=== PATIENT | female | born 1975 | race American Indian/Alaskan Native ===

== ENCOUNTER → 2018-07-10 03:32 | Outpatient (CLI) | payer OTHER, SELFPAY ==
[2018-07-10 14:44] LABS: Lithium 0.28 mmol/L (0.60-1.20)
[2018-07-10 15:17] LABS: Anion Gap 9.6 mmol/L (3-11); BUN 7 mg/dL (7-18); CO2 25.4 mmol/L (21.0-32.0); CREATININE 0.82 mg/dL (0.55-1.02); Calcium 9.4 mg/dL (8.5-10.1); Chloride 102 mmol/L (98-107); Glucose 95 mg/dL (70-100); Potassium 4.2 mmol/L (3.5-5.1); Sodium 137 mmol/L (136-145); TSH (W/Ref FT4) 0.44 uIU/mL (0.358-3.74)
[2018-07-10 21:51] LABS: T3,Free 3.2 pg/ml (2.8-5.3)
== END ==
PROVIDERS: PCP Nurse Practitioner; Visit Provider Nurse Practitioner
DX: F31.5 Bipolar disorder, current episode depressed, severe, with psychotic features (principal); Z51.81 Encounter for therapeutic drug level monitoring; Z79.899 Other long term (current) drug therapy
CPT/HCPCS: 36415; 80048; 80178; 82565; 84156; 84443; 84481

== ENCOUNTER 2018-07-17 02:39 | Outpatient (CLI) | payer OTHER, SELFPAY ==
[2018-07-17 13:27] LABS: Lithium 0.46 mmol/L (0.60-1.20)
== END 2018-07-17 02:59 ==
PROVIDERS: PCP Nurse Practitioner; Visit Provider Nurse Practitioner
DX: F31.5 Bipolar disorder, current episode depressed, severe, with psychotic features (principal); Z51.81 Encounter for therapeutic drug level monitoring
CPT/HCPCS: 36415; 80178

== ENCOUNTER 2018-07-23 01:16 | Outpatient (CLI) | payer OTHER, SELFPAY ==
[2018-07-23 14:05] LABS: Anion Gap 5.7 mmol/L (3-11); BUN 17 mg/dL (7-18); CO2 29.3 mmol/L (21.0-32.0); CREATININE 0.86 mg/dL (0.55-1.02); Calcium 9.4 mg/dL (8.5-10.1); Chloride 103 mmol/L (98-107); Glucose 100 mg/dL (70-100); Potassium 4.4 mmol/L (3.5-5.1); Sodium 138 mmol/L (136-145)
[2018-07-23 14:18] LABS: Lithium 0.97 mmol/L (0.60-1.20)
== END 2018-07-23 01:36 ==
PROVIDERS: PCP Nurse Practitioner; Visit Provider Nurse Practitioner
DX: F31.5 Bipolar disorder, current episode depressed, severe, with psychotic features (principal); Z51.81 Encounter for therapeutic drug level monitoring; Z79.899 Other long term (current) drug therapy
CPT/HCPCS: 36415; 80048; 80178

== ENCOUNTER 2018-08-13 14:03 | Outpatient (CLI) | payer OTHER, SELFPAY ==
[2018-08-13 14:33] LABS: HCT 45.4 % (36.0-46.0); Mean Corpuscular Hemoglobin 32.2 pg (27.0-33.0); Mean Corpuscular Volume 97.4 fL (80-95); Mean Platelet Volume 8.6 fL (8.0-11.0); Platelet Count 428 x1000/uL (130-400); RBC 4.66 m/cumm (4.00-5.20); RBC Distribution Width 14.9 % (11.7-14.6); White Blood Cell Count 10.61 k/cumm (4.4-10.8)
[2018-08-13 15:20] LABS: Lithium 0.78 mmol/L (0.60-1.20)
[2018-08-13 15:24] LABS: Iron 65 ug/dL (50-175); Total Iron Binding Capacity 309 ug/dL (250-450); Transferrin Sat 21 % (15-50)
[2018-08-13 15:58] LABS: Ferritin 41 ng/mL (8-388); Vitamin B12 543 pg/mL (193-986)
== END 2018-08-13 14:23 ==
PROVIDERS: PCP Nurse Practitioner; Visit Provider Nurse Practitioner
DX: F32.9 Major depressive disorder, single episode, unspecified (principal); R53.83 Other fatigue; F31.4 Bipolar disorder, current episode depressed, severe, without psychotic features; Z51.81 Encounter for therapeutic drug level monitoring
CPT/HCPCS: 36415; 85027; 80178; 82607; 82728; 83540; 83550

== ENCOUNTER 2018-09-17 10:10 | Outpatient (CLI) | payer OTHER, SELFPAY ==
[2018-09-17 17:15] LABS: Lithium 0.61 mmol/L (0.60-1.20)
[2018-09-17 19:16] LABS: Vitamin D 25 Total 32.7 ng/ml (30-100)
== END 2018-09-17 10:30 ==
PROVIDERS: PCP Nurse Practitioner; Visit Provider Nurse Practitioner Psychiatric/Mental Health
DX: F31.81 Bipolar II disorder (principal); Z51.81 Encounter for therapeutic drug level monitoring; Z79.899 Other long term (current) drug therapy; E55.9 Vitamin D deficiency, unspecified
CPT/HCPCS: 36415; 82306; 80178

== ENCOUNTER 2018-10-19 11:36 | Outpatient (CLI) | payer OTHER, SELFPAY ==
[2018-10-19 13:41] LABS: Abs Immature Grans 0.02 k/cumm (0.0-0.09); Absolute Basophil Count 0.02 k/cumm (0.0-0.2); Absolute Eosinophil Count 0.26 k/cumm (0.0-0.7); Absolute Lymphocyte Count 2.19 k/cumm (1.2-3.4); Absolute Monocyte Count 0.94 k/cumm (0.11-0.7); Basophils % 0.2; Eosinophils % 2.2; HCT 46.4 % (36.0-46.0); HGB 15.7 g/dL (12.0-15.5); Immature Grans % 0.2; Lymphocytes % 18.8; Mean Corp. HGB Concentration 33.8 g/dL (32.0-36.0); Mean Corpuscular Hemoglobin 32.6 pg (27.0-33.0); Mean Corpuscular Volume 96.5 fL (80-95); Mean Platelet Volume 8.4 fL (8.0-11.0); Monocytes % 8.1; Neutrophils % 70.5; Platelet Count 418 x1000/uL (130-400); RBC 4.81 m/cumm (4.00-5.20); RBC Distribution Width 13.9 % (11.7-14.6); White Blood Cell Count 11.66 k/cumm (4.4-10.8)
[2018-10-19 13:44] LABS: Absolute Neutrophil Count 8.22 k/cumm (1.2-6.7)
[2018-10-19 14:30] LABS: Iron 150 ug/dL (50-175); Total Iron Binding Capacity 332 ug/dL (250-450); Transferrin Sat 45 % (15-50)
[2018-10-19 15:01] LABS: ALT 20 U/L (12-78); AST 14 U/L (15-37); Alkaline Phosphatase 103 U/L (46-116); BUN 8 mg/dL (7-18); Bilirubin, Total 0.3 mg/dL (0.2-1.0); CREATININE 0.82 mg/dL (0.55-1.02); Calcium 9.7 mg/dL (8.5-10.1); Chloride 102 mmol/L (98-107); Ferritin 21 ng/mL (8-388); Folate 14.8 ng/mL (8.6-20.0); Glucose 109 mg/dL (70-100); Potassium 4.4 mmol/L (3.5-5.1); Sodium 136 mmol/L (136-145); T4 7.3 ug/dL (4.5-12.5); TSH (W/Ref FT4) 0.16 uIU/mL (0.358-3.74); Total Protein 7.4 g/dL (6.4-8.2); Vitamin B12 535 pg/mL (193-986)
[2018-10-19 15:22] LABS: FREE T4 0.81 ng/dL (0.76-1.46)
[2018-10-22 08:27] LABS: Vitamin D 25 Total 33.7 ng/ml (30-100)
== END 2018-10-19 11:56 ==
PROVIDERS: PCP Nurse Practitioner; Visit Provider Nurse Practitioner Psychiatric/Mental Health
DX: F43.21 Adjustment disorder with depressed mood (principal); Z51.81 Encounter for therapeutic drug level monitoring; Z79.899 Other long term (current) drug therapy
CPT/HCPCS: 36415; 80053; 82306; 80178; 82607; 82728; 82746; 83540; 83550; 84436; 84439; 84443; 85025

== ENCOUNTER 2018-11-12 13:14 | Outpatient (CLI) | payer OTHER, SELFPAY ==
[2018-11-12 14:56] LABS: FREE T4 0.67 ng/dL (0.76-1.46); TSH (W/Ref FT4) 0.23 uIU/mL (0.358-3.74)
[2018-11-12 15:07] LABS: T4 5.1 ug/dL (4.5-12.5)
[2018-11-12 20:30] LABS: T3, Total 321 ng/dl (97-169)
== END 2018-11-12 13:34 ==
PROVIDERS: PCP Nurse Practitioner; Visit Provider Nurse Practitioner Psychiatric/Mental Health
DX: F31.81 Bipolar II disorder (principal); Z79.899 Other long term (current) drug therapy
CPT/HCPCS: 36415; 84436; 84439; 84443; 84480

== ENCOUNTER 2019-01-28 18:53 | Emergency (ER) | payer OTHER, SELFPAY ==
[2019-01-28 19:05] VITALS: BP 122/75; PULSE 99; RESP 16; TEMP 37.3; O2SAT 94
--- NOTE | 2019-01-28 19:53 | ED.GENADUL_ITS ---
Discharge Plan Disposition Patient Disposition: HOME Condition: Improving Discharge Details Chief Complaint: Nk/Back Pain Clinical Impression: Spasm of thoracic back muscle Reason For Visit: back out Primary Care Provider: Malgorzata Orellana ED Provider: Mo Becker Home Meds and New Rx's Prescriptions: New cyclobenzaprine 10 mg tablet 10 mg PO Q8H PRN (Reason: muscle spasm) Qty: 10 RF: 0 Continued ferrous sulfate 325 mg (65 mg iron) tablet,delayed release (DR/EC) 325 mg PO DAILY Qty: 30 RF: 5 sumatriptan succinate 100 mg tablet 100 mg PO DIRECTED Qty: 9 RF: 3 ropinirole [Requip] 0.5 mg tablet 0.5 mg PO HS Qty: 90 RF: 3 lamotrigine [Lamictal] 100 mg tablet 200 mg PO DAILY RF: 0 omeprazole 40 MG capsule,delayed release(DR/EC) 40 mg PO DAILY Qty: 90 RF: 3 cholecalciferol (vitamin D3) 1,000 unit capsule 1,000 unit PO DAILY RF: 0 olanzapine 5 mg tablet 5 mg PO DAILY RF: 0 Viibryd 40 mg tablet 40 mg PO DAILY RF: 0 alprazolam [Xanax] 0.5 mg tablet 0.5 mg PO BID PRN (Reason: anxiety) RF: 0 hydroxyzine HCl 50 mg tablet 100 mg PO BID PRNRF: 0 ibuprofen 200 mg Tablet 800 mg PO RF: 0 Discharge Instructions Instructions: Muscle Spasm (ED) Additional Instructions: Home to rest this evening. Remove lidocaine patch in 12 hours. May use Flexeril as prescribed every 8 hours as needed for ongoing pain and spasm. Follow-up Malgorzata Orellana for recheck in the next 5-7 days if not improving. Return to the emergency department for any acute concerns Medical Decision Making 43-year-old female with a history of intermittent episodes of lumbago. She slipped in the shower and caught herself without falling today but has had resultant slowly increasing lumbar pain over the course of the day. Not improved with ibuprofen at home. She is not otherwise been ill and did not injure herself in any other way. She has normal motor and sensory function of the lower extremity. Patient significant distress upon arrival. IV was placed, patient given fluids, analgesic, muscle relaxant. Patient improved, was able to get in and out of bed to the commode by herself without assistance. Consistent with muscular spasm. Will treat with lidocaine patch overnight and Flexeril to be used as needed. She is stable and improved, appropriate discharge to home per HPI General Mode of arrival: ambulatory . Date/Time Provider Initiated Documentation: 01/28/19 19:14 . Limitations to Documentation: no limitations . Information obtained by: patient and family . History of Present Illness 43 year old F presents to the emergency department with the chief complaint of Severe back pain after slip in the shower, described as moderate and severe, Quality is described as constant, and is localized to the back. Patient reports no radiation. Patient started experiencing this hour(s) and it has been constant. No relieving factors improve symptom(s), Movement worsens symptoms . Patient notes no other symptoms.. Patient did receive the following treatments prior to arrival, NSAID Related Data Home Medications Medication Instructions Recorded Confirmed omeprazole 40 mg PO DAILY #90 tab-cap 06/25/18 01/28/19 cholecalciferol (vitamin D3) 1,000 1,000 unit PO DAILY 08/30/18 11/20/18 unit capsule ropinirole 0.5 mg tablet 0.5 mg PO HS #90 tab 09/17/18 01/28/19 olanzapine 5 mg tablet 5 mg PO DAILY 10/24/18 01/28/19 ferrous sulfate 325 mg (65 mg 325 mg PO DAILY #30 tab 10/31/18 01/28/19 iron) tablet,delayed release lamotrigine 100 mg tablet 200 mg PO DAILY tab 10/31/18 01/28/19 sumatriptan 100 mg tablet 100 mg PO DIRECTED #9 tab 10/31/18 01/28/19 vilazodone 40 mg tablet 40 mg PO DAILY 12/17/18 01/28/19 alprazolam 0.5 mg tablet 0.5 mg PO BID PRN tab 01/02/19 01/28/19 hydroxyzine HCl 50 mg tablet 100 mg PO BID PRN tab 01/21/19 01/28/19 cyclobenzaprine 10 mg PO Q8H PRN #10 tab 01/28/19 ibuprofen 800 mg PO 01/28/19 Previous Rx's Medication Instructions Recorded omeprazole 40 mg PO DAILY #90 tab-cap 06/25/18 ropinirole 0.5 mg tablet 0.5 mg PO HS #90 tab 09/17/18 ferrous sulfate 325 mg (65 mg 325 mg PO DAILY #30 tab 10/31/18 iron) tablet,delayed release sumatriptan 100 mg tablet 100 mg PO DIRECTED #9 tab 10/31/18 cyclobenzaprine 10 mg PO Q8H PRN #10 tab 01/28/19 Allergies Allergy/AdvReac Type Severity Reaction Status Date / Time erythromycin base Allergy Severe Hives, Verified 01/28/19 19:08 Vomitting Influenza Virus Vaccines Allergy Severe very ill, Verified 01/28/19 19:08 high fever, vomiting, muscle aches for 2 weeks shellfish derived Allergy Severe anaphylaxis Verified 01/28/19 19:08 Sulfa (Sulfonamide Allergy Unknown Hives, Verified 01/28/19 19:08 Antibiotics) Rash, Vomitting paroxetine AdvReac Severe Ineffective- Verified 01/28/19 19:08 Suicide attempt clonazepam AdvReac Intermediate palpatations, Verified 01/28/19 19:08 shakey doxepin AdvReac Mild dizziness Verified 01/28/19 19:08 metronidazole AdvReac Unknown GI upset Verified 01/28/19 19:08 walnuts Allergy Intermediate gi upset Uncoded 01/28/19 19:08 rash General Stated Complaint: Nk/Back Pain MARYAM: 4 Review of Systems Review of Systems No numbness or tingling. Did not fall. No change to ability to urinate. Denies striking her head. No neck, chest, abdominal discomfort. 8 systems reviewed and otherwise neg [facility] Medical History Bipolar 1 disorder, depressed, severe (Chronic) RLS (restless legs syndrome) (Chronic) Vitamin D deficiency (Acute 12/29/16) Tobacco use disorder (Acute) Insomnia (Acute 11/16/17) GERD (gastroesophageal reflux disease) (Acute 05/25/16) Anxiety Depression Gallstones Migraine Nephrolithiasis Ovarian cyst Tobacco use Surgical History section Cholecystectomy Oophrectomy, Right Family History Mother COPD (chronic obstructive pulmonary disease) Depression Heart disease Stroke Father Heart disease Hyperlipidemia Neoplasm Asthma Grandfather Heart disease Hyperlipidemia Grandfather Heart disease Hyperlipidemia Grandmother Diabetes Essential hypertension Depression Heart disease Hyperlipidemia Grandmother Diabetes Personal history of malignant neoplasm Heart disease Stroke Brother Substance abuse Asthma Daughter Asthma Daughter Personal history of malignant neoplasm Asthma Maternal Aunt No problems noted. Social History Smoking/Tobacco Use Status: Current every day Tobacco Type: cigarettes Alcohol Intake: never Drug use: Never Substance use type: does not use Household members: spouse, children and other Details: pt mother and mother in law Housing: house Pets and animals: Yes Pets and animals: cat(s) and dog(s) Sexually active: Yes Seatbelt use: always Working smoke detector in home: Yes Fire extinguisher in home: Yes Carbon monox detector in home: No Do you feel safe at home: Yes Do you feel safe in your relationship?: Yes Exam Narrative Exam Narrative: GEN: awake, alert, oriented 3. In pain, well groomed, interactive. HEAD: Normocephalic, atraumatic ENT: Mucous membranes moist, oropharynx unremarkable, External ear exam unremarkable EYES: PERRL, EOMI NECK: Full ROM, no JULIA, no menigismus CHEST/RESP: Nontender, clear to auscultation bilateral, no wheeze/rhonchi/rales CARDIOVASCULAR: RRR, no murmur, rub sola. 2+ Rad pulse bilateral ABDOMEN: Soft, nontender, no mass. +Bowel sounds Back: Diffusely tender with thoracic right greater than left paraspinous muscular spasm EXT: Full ROM, no edema, no rash. 1+ ankle reflex bilaterally. Motor intact but limited by pain. Sensation including saddle distribution is intact throughout Neuro: Grossly normal neurologic exam, conversant, interactive. Psych: Speech fluent, thoughts congruent, affect anxious Course Vital Signs Temperature 37.3 C 01/28/19 19:05 Pulse 99 H 01/28/19 19:05 Respiratory Rate 16 01/28/19 19:05 Blood Pressure 122/75 01/28/19 19:05 Pulse Oximetry 94 L 01/28/19 19:05 Temperature 37.3 C 01/28/19 19:05 Temperature Source Temporal Artery Scan 01/28/19 19:05 Pulse 99 H 01/28/19 19:05 Respiratory Rate 16 01/28/19 19:05 Blood Pressure 122/75 01/28/19 19:05 Blood Pressure Position Sitting 01/28/19 19:05 Pulse Oximetry 94 L 01/28/19 19:05 Oxygen Delivery Method Room Air 01/28/19 19:05 Oxygen Flow Rate 0 01/28/19 19:05 Pain Level 10 01/28/19 19:05
[2019-01-28] MEDS: HYDROmorphone 2 MG/ML VIAL 0.5 MG IVP ×2 (20:12→22:05)
[2019-01-28] MEDS: Normal Saline 1,000 ML 1000 ML IV (20:15)
[2019-01-28] MEDS: Ketorolac 30 MG/ML VIAL IVP (20:16)
[2019-01-28] MEDS: HYDROmorphone 2 MG/ML VIAL 1 MG IVP (20:53)
[2019-01-28 20:56] VITALS: BP 110/51; PULSE 80; RESP 20; O2SAT 96
[2019-01-28] MEDS: Cyclobenzaprine 10 MG TAB 20 MG PO (22:05)
[2019-01-28 22:30] VITALS: PULSE 70; RESP 16; O2SAT 97
== END 2019-01-28 22:22 | disposition home or self-care (01) ==
PROVIDERS: Emergency Provider Emergency Medicine; PCP Nurse Practitioner
DX: M62.830 Muscle spasm of back (principal); M54.6 Pain in thoracic spine
CPT/HCPCS: 96361; 96374; 96375; 96376; 99284; 99283; J1885

== ENCOUNTER 2019-02-14 16:42 | Outpatient (CLI) | payer OTHER, SELFPAY ==
--- NOTE | 2019-02-14 15:30 | DI.RAD_ITS ---
SYMPTOM/DIAGNOSIS: LUMBAR BACK PAIN, BILAT SCIATICA, M54.5,M54.30 LUMBOSACRAL SPINE: Five views were obtained. The intervertebral disc spaces appear fairly well maintained. There is no evidence of spondylolysis or spondylolisthesis. Minimal hypertrophic spurring of the facet joints is noted throughout the lumbar region. SI joints appear fairly well maintained. Note is made of previous cholecystectomy. CONCLUSION: Mild DJD of the lumbar spine.
== END 2019-02-14 17:02 ==
PROVIDERS: PCP Nurse Practitioner; Visit Provider Nurse Practitioner
DX: M54.5 Low back pain (principal); M54.30 Sciatica, unspecified side; M47.26 Other spondylosis with radiculopathy, lumbar region
CPT/HCPCS: 72110

== ENCOUNTER 2019-03-05 10:26 | Outpatient (CLI) | payer OTHER, SELFPAY ==
[2019-03-05 11:06] LABS: HCT 45.8 % (36.0-46.0); HGB 15.7 g/dL (12.0-15.5); Mean Corp. HGB Concentration 34.3 g/dL (32.0-36.0); Mean Corpuscular Hemoglobin 32.1 pg (27.0-33.0); Mean Corpuscular Volume 93.7 fL (80-95); Mean Platelet Volume 8.8 fL (8.0-11.0); Platelet Count 324 x1000/uL (130-400); RBC 4.89 m/cumm (4.00-5.20); RBC Distribution Width 14.9 % (11.7-14.6); White Blood Cell Count 9.36 k/cumm (4.4-10.8)
[2019-03-05 12:23] LABS: TSH (W/Ref FT4) 0.05 uIU/mL (0.358-3.74)
[2019-03-05 12:43] LABS: FREE T4 1.09 ng/dL (0.76-1.46)
[2019-03-05 17:37] LABS: T3,Free 4.2 pg/ml (2.8-5.3)
== END 2019-03-05 10:46 ==
PROVIDERS: PCP Nurse Practitioner; Visit Provider Nurse Practitioner
DX: K92.1 Melena (principal); R94.6 Abnormal results of thyroid function studies; F41.9 Anxiety disorder, unspecified; F31.5 Bipolar disorder, current episode depressed, severe, with psychotic features
CPT/HCPCS: 36415; 85027; 84439; 84443; 84481

== ENCOUNTER 2019-03-19 00:52 | Outpatient (CLI) | payer OTHER, SELFPAY ==
--- NOTE | 2019-03-19 12:30 | DI.US_ITS ---
SYMPTOMS/DIAGNOSIS: ABNORMAL TSH, HYPERTHYROIDISM, THYROTOXICOSIS, E05.90 THYROID ULTRASOUND: Routine examination was performed. The right lobe measures 5.4 x 2.1 x 1.6 cm, the left lobe measures 5 x 1.9 x 2.0 cm. The isthmus measures 0.4 cm. The thyroid gland is heterogeneous throughout. There is normal and symmetric blood flow to the thyroid gland. Note is made of a 0.8 x 0.3 x 0.7 cm complex nodule in the left lobe of the thyroid gland. No internal blood flow is seen. It does contain both cystic and solid components. IMPRESSION: Overall heterogeneous thyroid gland with a 0.8 cm discrete complex thyroid nodule. This is nonspecific. If further imaging is warranted, a thyroid uptake and scan should be considered.
== END 2019-03-19 01:12 ==
PROVIDERS: PCP Nurse Practitioner; Visit Provider Nurse Practitioner
DX: E05.90 Thyrotoxicosis, unspecified without thyrotoxic crisis or storm (principal); E04.1 Nontoxic single thyroid nodule; R94.6 Abnormal results of thyroid function studies
CPT/HCPCS: 76536

== ENCOUNTER 2019-03-26 07:14 | Day surgery (SDC) | payer OTHER, SELFPAY ==
--- NOTE | 2019-03-26 07:08 | ENDO_ITS ---
Date of service: 03/26/19 Time of Service: 08:40 Endoscopy Report DATE OF PROCEDURE: 03/26/19 PRE-OP DIAGNOSIS: Diarrhea and GERD POST-OP DIAGNOSIS: same (mod. Gastritis and esophagitis, mild diverticulosis, colon polyps) PROCEDURE: Colonoscopy with polypectomy by cold forceps EGD with biopsies SURGEON: Ne Quarels ANESTHESIA: other (General/ ASA 2/ Geovanni Gupta CRNA/ Michelle Finch CRNA ) ESTIMATED BLOOD LOSS: 3 PATHOLOGY: other (Gastric bx, GE junction bx, Terminal ileum Bx, ascending, transverse, descending, rsigmoid and rectum randome Bx, polyps x2) COMPLICATIONS: None DISPOSITION: same day INDICATIONS: Mrs. Dickson is a pleasant 43 year old female with 1 year history of diarrhea. She also has GERD that is not well controlled. Risks, benefits and complications have been reviewed. Complications include but are not limited to bleeding, pain, perforation, missed small lesion/polyp, sore throat, aspiration and adverse reaction to the medications. Questions were entertained and answered to their satisfaction and they wished to proceed. No guarantees were given or implied. PREP: Miralax/Dulcolax PROCEDURE START TIME: 08:40 PROCEDURE END TIME: 09:20 COLONOSCOPY RETRACTION TIME: 21 minutes FINDINGS: Upper endoscopy- mild to moderate gastritis. Moderate esophagitis Colonoscopy- Rectal and sigmoid polyps mild diverticulosis Otherwise normal appearing colon. PROCEDURE DESCRIPTION: After informed consent was obtained the patient was take to the procedure room and placed in a supine position. Monitors were applied and a time out was done. The patients name, date of , procedure type, allergies to medications and metal in their body was reviewed. A bite block was placed and the patient was sedated. Once sedated and comfortable the gastroscope was advanced through the oropharynx which was grossly normal into the esophagus. The proximal and mid- esophagus were normal. In the distal esophagus there was moderate inflammation noted. The scope was advanced into the stomach and through the pylorus into the 3rd portion of the duodenum. The duodenum was noted to be normal. The scope was retracted back into the stomach and biopsies were done to rule out H. pylori. There were no ulcers. The scope was retro-flexed. The cardia and fundus were noted to be normal. There was no hiatal hernia noted. The scope was retracted back into the esophagus and biopsies were done of the GE junction to rule out Cao's. The Z line was irregular. The GE junction was at 38 cm. While the patient was still sedated they were placed in a left decubitous position. A rectal exam was done. External exam was normal. Internal exam revealed a normal sphincter tone and no palpable masses. The scope was then introduced and retro-flexed. No internal hemorrhoids were identified. The scope was then advanced to the cecum without difficulty. The TI and appendiceal orifice were identified. The prep was adequate. The scope was advanced into the terminal ileum for about 15 cm. No inflammation was noted. Random biopsies were done. The scope was then slowly retracted over 21 minutes back into the rectum. Random biopsies were done in the ascending, transverse, descending, sigmoid and rectum to rule out microscopic colitis. Polyps were removed with cold forceps in the rectum and sigmoid colon. The scope was removed and the patient was woken up and taken back to Same day surgery in stable condition. The patient tolerated the procedure well and there were no immediate complications. Follow up: 2-3 weeks. Start on Pepcid 20 mg BID
--- NOTE | 2019-03-26 07:08 | W.PM.DSUDISC ---
Discharge Plan Disposition Patient Disposition: HOME Condition: Good Discharge Details Reason For Visit: [place]/EGD Attending Provider: Ne Quarles Primary Care Provider: Malgorzata Orellana Home Meds and New Rx's Prescriptions: Continued ferrous sulfate 325 mg (65 mg iron) tablet,delayed release (DR/EC) 325 mg PO DAILY Qty: 30 RF: 5 sumatriptan succinate 100 mg tablet 100 mg PO DIRECTED Qty: 9 RF: 3 alprazolam [Xanax] 0.5 mg tablet 1 mg PO DAILY PRN (Reason: anxiety) RF: 0 cholecalciferol (vitamin D3) 1,000 unit capsule 5,000 unit PO .weekly RF: 0 ropinirole [Requip] 0.5 mg tablet 0.5 mg PO HS Qty: 90 RF: 3 lamotrigine [Lamictal] 100 mg tablet 200 mg PO DAILY RF: 0 omeprazole 40 MG capsule,delayed release(DR/EC) 40 mg PO DAILY Qty: 90 RF: 3 olanzapine 5 mg tablet 5 mg PO DAILY RF: 0 Viibryd 40 mg tablet 40 mg PO DAILY RF: 0 hydroxyzine HCl 50 mg tablet 100 mg PO BID PRNRF: 0 Discontinued bisacodyl [Dulcolax (bisacodyl)] 5 mg tablet,delayed release (DR/EC) 5 mg PO ONCE Qty: 4 RF: 0 polyethylene glycol 3350 17 gram powder in packet 255 g PO DAILY Qty: 15 RF: 0 Discharge Instructions Instructions: Gastritis (DC), Colonoscopy (DC), Upper Endoscopy (DC), Esophagitis (DC) Additional Instructions: Findings: Inflammation of the stomach and esophagus Mild diverticulosis Colorectal polyps Follow up:3 to 5 years for next colonoscopy 2-3 weeks in the office Please call if you develop: fevers >101.5 Nausea or Vomiting Abdominal pain that is not transient DAY SURGERY UNIT POST COLONOSCOPY INSTRUCTIONS 1. Because there will be medication in your system for the next 24 hours, you may feel a little sleepy. Your coordination will be affected. Therefore: a. Do not drive or operate dangerous equipment for 24 hours. b. Do not drink alcohol beverages for 24 hours (not even beer). c. Plan to go home and rest for the day. 2. Generally there are no restrictions on your activity after a day or so has gone by, but you may feel a bit fatigued for a few days. 3 After you arrive home you may have a light meal and return to a normal diet as you can tolerate it without feeling sick to your stomach. 4. After surgery, you may feel pain or discomfort. This should be only transient, but if it persists please contact your doctor. 5. If there are any questions regarding the findings of your procedure, please feel free to contact your doctor. 6. If you are unable to contact your doctor with a problem, contact the hospital at [phone]. 7. Continue all your regular medications unless directed otherwise. I understand the above instructions and have no questions. Signature of Patient or Responsible Adult Escort Date/Time Name of Responsible Adult Escort Signature of Nurse Date/Time Referrals: Ne Quarles MD [ [facility] STAFF PHYSICIAN] - 04/09/19 1:15 pm Activity:: Activity as Tolerated Diet:: high fiber Discharge Orders Discharge Orders: Discharge Order (Routine); Ordered 03/26/19 Ordered By: Ne Quarles DS: Diagnosis Discharge Diagnosis (1) Chronic diarrhea: Status: Acute (2) GERD (gastroesophageal reflux disease): Status: Acute (3) Diverticulosis: Status: Acute (4) Colorectal polyps: Status: Acute (5) Esophagitis: Status: Acute (6) Gastritis: Status: Acute
[2019-03-26 07:37] VITALS: BP 114/78; PULSE 89; RESP 18; TEMP 36.4; O2SAT 96
[2019-03-26] MEDS: Lactated Ringers 1,000 ML 80 ML IV (07:46)
--- NOTE | 2019-03-26 08:41 | STOM_PTH ---
PATIENT: Franchesca Dickson LOC: GER U#:[id number] AGE/SX: 43/F ROOM: RE03/26/[address]: Ne Quarles MD : 1975 BED: DIS: 03/26/2019 SPEC #: [id number] RECD: 03/26/19 12:23 STATUS: RHIANNON Rosemary #: [id number] PALLAVI: 03/26/19 08:[address]: Ne Quarles DEPT: Surgical Specimen RECD BY: Zari Helm ENTERED: 03/26/19 12:28 SP TYPE: STOMACH OTHR DR: Malgorzata Orellana APRN Tissues: 1 - STOMACH BIOPSY 2 - ESOPHAGUS BIOPSY 3 - BIOPSY BOWEL 4 - BIOPSY BOWEL 5 - BIOPSY BOWEL 6 - BIOPSY BOWEL 7 - BIOPSY BOWEL 8 - BIOPSY BOWEL 9 - BIOPSY BOWEL 10 - BIOPSY BOWEL 11 - BIOPSY BOWEL Procedures: GROSS AND MICRO LEVEL 4 Comments: [id number]
[2019-03-26 10:01] VITALS: BP 94/67; PULSE 77; RESP 18; TEMP 36.6; O2SAT 95
== END 2019-03-26 10:45 | disposition home or self-care (01) ==
LOC: SUR 07:15
PROVIDERS: PCP Nurse Practitioner; Visit Provider Surgery
PROC: (CPT 45380; principal; 2019-03-26 08:45)
DX: R19.7 Diarrhea, unspecified (principal); K21.0 Gastro-esophageal reflux disease with esophagitis; K31.89 Other diseases of stomach and duodenum; K62.1 Rectal polyp; K63.5 Polyp of colon; K51.40 Inflammatory polyps of colon without complications; D12.4 Benign neoplasm of descending colon; K57.30 Diverticulosis of large intestine without perforation or abscess without bleeding; K29.70 Gastritis, unspecified, without bleeding; K22.8 Other specified diseases of esophagus
CPT/HCPCS: 45380; 43239; 81025; 88305

== ENCOUNTER 2019-04-22 18:12 | Emergency (ER) | payer OTHER, SELFPAY ==
[2019-04-22 18:22] VITALS: BP 125/78; PULSE 91; RESP 18; TEMP 36.9; O2SAT 95
--- NOTE | 2019-04-22 18:34 | W.ED.GENAD ---
Discharge Plan Disposition Patient Disposition: HOME Condition: Improving Discharge Details Chief Complaint: DentalOral Clinical Impression: Arthralgia of left temporomandibular joint Primary Care Provider: Malgorzata Orellana ED Provider: Mo Becker Home Meds and New Rx's Prescriptions: Continued ferrous sulfate 325 mg (65 mg iron) tablet,delayed release (DR/EC) 325 mg PO DAILY Qty: 30 RF: 5 sumatriptan succinate 100 mg tablet 100 mg PO DIRECTED Qty: 9 RF: 3 alprazolam [Xanax] 0.5 mg tablet 1 mg PO DAILY PRN (Reason: anxiety) RF: 0 cholecalciferol (vitamin D3) 1,000 unit capsule 5,000 unit PO .weekly RF: 0 ropinirole [Requip] 0.5 mg tablet 0.5 mg PO HS Qty: 90 RF: 3 lamotrigine [Lamictal] 100 mg tablet 200 mg PO DAILY RF: 0 omeprazole 40 MG capsule,delayed release(DR/EC) 40 mg PO DAILY Qty: 90 RF: 3 olanzapine 5 mg tablet 5 mg PO DAILY RF: 0 Viibryd 40 mg tablet 40 mg PO DAILY RF: 0 hydroxyzine HCl 50 mg tablet 100 mg PO BID PRNRF: 0 Discharge Instructions Additional Instructions: May use the provided hydrocodone for ongoing severe pain. Continue to apply heat and alternate with ice to reduce discomfort. Please see enclosed dentistry follow-up referral sheet. You received a single dose of dexamethasone which provide anti-inflammatory properties over the next 2 days time. Continue regular medication Medical Decision Making 43-year-old female presents from home with chronic left jaw pain and clicking. States it often locks. She has not had a jaw dislocation. She has a freely mobile TMJ with palpable click on exam. Likely significant TMJ discomfort. She is had some associated swelling and I do feel she benefit from a single dose of dexamethasone. We will provide her with 2 hydrocodone tablets to be used if needed for severe pain. We will refer her to dentistry for follow HPI General Mode of arrival: ambulatory. Date/Time Provider Initiated Documentation: 04/22/19 18:18. Limitations to Documentation: no limitations. Information obtained by: patient. History of Present Illness 43 year old F presents to the emergency department with the chief complaint of Left jaw pain, described as moderate and similar to prior episodes, Quality is described as dull and constant, and is localized to the mouth. Patient reports no radiation. and it has been constant. No exacerbating factors reported . Patient notes no other symptoms.. Patient did receive the following treatments prior to arrival, NSAID Related Data Home Medications Medication Instructions Recorded Confirmed omeprazole 40 mg PO DAILY #90 tab-cap 06/25/18 04/09/19 ropinirole 0.5 mg tablet 0.5 mg PO HS #90 tab 09/17/18 04/09/19 olanzapine 5 mg tablet 5 mg PO DAILY 10/24/18 04/09/19 ferrous sulfate 325 mg (65 mg 325 mg PO DAILY #30 tab 10/31/18 04/09/19 iron) tablet,delayed release lamotrigine 100 mg tablet 200 mg PO DAILY tab 10/31/18 04/09/19 sumatriptan 100 mg tablet 100 mg PO DIRECTED #9 tab 10/31/18 04/09/19 vilazodone 40 mg tablet 40 mg PO DAILY 12/17/18 04/09/19 hydroxyzine HCl 50 mg tablet 100 mg PO BID PRN tab 01/21/19 04/09/19 alprazolam 0.5 mg tablet 1 mg PO DAILY PRN tab 02/14/19 04/09/19 cholecalciferol (vitamin D3) 1,000 5,000 unit PO .weekly cap 02/14/19 04/09/19 unit capsule Previous Rx's Medication Instructions Recorded omeprazole 40 mg PO DAILY #90 tab-cap 06/25/18 ropinirole 0.5 mg tablet 0.5 mg PO HS #90 tab 09/17/18 ferrous sulfate 325 mg (65 mg 325 mg PO DAILY #30 tab 10/31/18 iron) tablet,delayed release sumatriptan 100 mg tablet 100 mg PO DIRECTED #9 tab 10/31/18 Allergies Allergy/AdvReac Type Severity Reaction Status Date / Time erythromycin base Allergy Severe Hives, Verified 04/22/19 18:27 Vomitting Influenza Virus Vaccines Allergy Severe very ill, Verified 04/22/19 18:27 high fever, vomiting, muscle aches for 2 weeks shellfish derived Allergy Severe anaphylaxis Verified 04/22/19 18:27 Sulfa (Sulfonamide Allergy Unknown Hives, Verified 04/22/19 18:27 Antibiotics) Rash, Vomitting paroxetine AdvReac Severe Ineffective- Verified 06/10/19 18:27 Suicide attempt clonazepam AdvReac Intermediate palpatations, Verified 04/22/19 18:27 drew doxepin AdvReac Mild dizziness Verified 04/22/19 18:27 metronidazole AdvReac Unknown GI upset Verified 04/22/19 18:27 walnuts Allergy Intermediate gi upset Uncoded 04/22/19 18:27 rash General Stated Complaint: DentalOral MARYAM: 3 Review of Systems Review of Systems No fever, no tooth pain, no change to voice [facility] Medical History Gastritis (Acute) Esophagitis (Acute) Colorectal polyps (Acute) Diverticulosis (Acute) Chronic diarrhea (Acute) Bipolar 1 disorder, depressed, severe (Chronic) RLS (restless legs syndrome) (Chronic) Vitamin D deficiency (Acute 12/29/16) Tobacco use disorder (Acute) Insomnia (Acute 11/16/17) GERD (gastroesophageal reflux disease) (Acute 05/25/16) Anxiety Depression Gallstones Migraine Nephrolithiasis Ovarian cyst Tobacco use Surgical History section Cholecystectomy Oophrectomy, Right Family History Mother COPD (chronic obstructive pulmonary disease) Depression Heart disease Stroke Father Heart disease Hyperlipidemia Neoplasm Asthma Grandfather Heart disease Hyperlipidemia Grandfather Heart disease Hyperlipidemia Grandmother Diabetes Essential hypertension Depression Heart disease Hyperlipidemia Grandmother Diabetes Personal history of malignant neoplasm Heart disease Stroke Brother Substance abuse Asthma Daughter Asthma Daughter Personal history of malignant neoplasm Asthma Maternal Aunt No problems noted. Social History Smoking/Tobacco Use Status: Current every day Tobacco Type: cigarettes Alcohol Intake: current Alcohol Intake frequency: holidays/special occasions only Alcohol type: hard liquor Drug use: Never Substance use type: does not use Household members: spouse, children and other Details: pt mother and mother in law Housing: house Number of Children: 2 current occupation: b/c of anxiety Pets and animals: Yes Pets and animals: cat(s) and dog(s) Sexually active: Yes What type of physical activity do you participate in: none Seatbelt use: always Working smoke detector in home: Yes Fire extinguisher in home: Yes Carbon monox detector in home: No Do you feel safe at home: Yes Do you feel safe in your relationship?: Yes Exam Narrative Exam Narrative: GEN: awake, alert, oriented 3. Pleasant, well groomed, interactive. HEAD: Normocephalic, atraumatic. The left TMJ has a palpable click. Patient has freely mobile jaw ENT: Mucous membranes moist, oropharynx unremarkable, External ear exam unremarkable EYES: PERRL, EOMI NECK: Full ROM, no JULIA, no menigismus CARDIOVASCULAR: RRR, no murmur, rub sola. 2+ Rad pulse bilateral EXT: Full ROM, no edema, no rash Neuro: Grossly normal neurologic exam, conversant, interactive. Psych: Speech fluent, thoughts congruent, affect normal Course Vital Signs Temperature 36.9 C 04/22/19 18:22 Pulse 91 H 04/22/19 18:22 Respiratory Rate 18 04/22/19 18:22 Blood Pressure 125/78 04/22/19 18:22 Pulse Oximetry 95 04/22/19 18:22 Temperature 36.9 C 04/22/19 18:22 Temperature Source Skin 04/22/19 18:22 Pulse 91 H 04/22/19 18:22 Respiratory Rate 18 04/22/19 18:22 Blood Pressure 125/78 04/22/19 18:22 Blood Pressure Position Sitting 04/22/19 18:22 Pulse Oximetry 95 04/22/19 18:22 Oxygen Delivery Method Room Air 04/22/19 18:22 Oxygen Flow Rate 0 04/22/19 18:22 Pain Level 9 04/22/19 18:22
[2019-04-22] MEDS: Dexamethasone 4 MG TAB 8 MG PO (18:48)
[2019-04-22] MEDS: HYDROcodone 5/Acetaminophen 325 TAB PO (18:50)
== END 2019-04-22 18:57 | disposition home or self-care (01) ==
PROVIDERS: Emergency Provider Emergency Medicine; PCP Nurse Practitioner
DX: M26.622 Arthralgia of left temporomandibular joint (principal)
CPT/HCPCS: 99283; J8540

== ENCOUNTER 2019-04-23 18:36 | Emergency (ER) | payer OTHER, SELFPAY ==
--- NOTE | 2019-04-23 18:42 | NUR.NOTE ---
Nursing Note: pt was seen here last night for similar symptoms. pt presents today with 10/10 pain in left side of jaw that radiates to eat and upper neck pt also states that she has limited mobility of her jaw as a result of pain upon moment of jaw. pt is convinced that this all started when she was bitten by an insect on Monday on her mole ( left cheek) which then over the course of the next 3 days swelled up and preceded to drain a white/green thin liquid fluid pt also experienced a fever during this time which has persisted until now when she presented to the ED. PT has been managing fever with ibuprofen
[2019-04-23 18:49] VITALS: BP 117/74; PULSE 95; RESP 14; TEMP 37.2; O2SAT 100
--- NOTE | 2019-04-23 19:16 | DI.CT_ITS ---
SYMPTOM/DIAGNOSIS: FEVER, TMJ/DENTAL PAIN NECK CT: CT scan of the neck was performed following the uneventful administration of intravenous contrast material. Findings: The visualized intracranial structures are unremarkable. The nasopharynx, hypopharynx, larynx, retropharyngeal space are all unremarkable. The submandibular and parotid glands are unremarkable. The thyroid gland has a normal appearance. No significant cervical adenopathy is present. The lung apices are clear. Note is made of bilateral tonsilloliths. Hypodensity in the left tonsil is likely artifactual. There is a small periapical lucency associated with the right posterior tooth (#17). This may represent a small abscess. The bones are otherwise intact. Mild mucosal thickening is seen in the left sphenoid sinus. The remaining visualized paranasal sinuses are clear. The visualized orbits are unremarkable. IMPRESSION: Findings suspicious for a small periapical abscess associated with a right mandibular tooth posteriorly.
--- NOTE | 2019-04-23 19:28 | W.ED.GENAD ---
Discharge Plan Disposition Patient Disposition: HOME Condition: Stable Discharge Details Chief Complaint: Fever Clinical Impression: Abscess, dental, Impacted teeth Primary Care Provider: Malgorzata Orellana ED Provider: Dontrell Barnes Home Meds and New Rx's Prescriptions: New amoxicillin-pot clavulanate [Augmentin] 875-125 mg tablet 1 tab PO BID Qty: 14 RF: 0 Continued alprazolam [Xanax] 0.5 mg tablet 1 mg PO DAILY PRN (Reason: anxiety) RF: 0 cholecalciferol (vitamin D3) 1,000 unit capsule 5,000 unit PO .weekly RF: 0 lamotrigine [Lamictal] 100 mg tablet 200 mg PO DAILY RF: 0 omeprazole 40 MG capsule,delayed release(DR/EC) 40 mg PO DAILY Qty: 90 RF: 3 olanzapine 5 mg tablet 5 mg PO DAILY RF: 0 Discharge Instructions Instructions: Dental Abscess (ED) Additional Instructions: For pain control you may continue to take 600 mg of ibuprofen with 1000 mg acetaminophen every 6 hours. Continue to take your antibiotic twice daily and take until the full prescription is gone. It is very important that you follow-up with the dentist in the next week for reassessment and plan of definitive care of your impacted molars along with other dental cavities. Return to the emergency department for any new or significant worsening of symptoms, any difficulty breathing swallowing or swelling of your tongue, or any further emergent concerns. If you are unable to follow-up with your dentist please follow-up with your primary care provider for reassessment Referrals: Malgorzata Orellana, [employer] [Primary Care Provider] - Discharge Data Discharge Date/Time-TO BE ENTERED AT DEPARTURE: 04/23/19 21:54 Medical Decision Making Patient presenting to the emergency department for chief complaint of left-sided jaw pain. Patient states for approximately 4 days she has had left-sided jaw pain that is worsened and over the past 48 hours has been noted some swelling to her left lower jaw and pain radiating into her neck and her left ear. Patient denies any injury or trauma but does state a bug bite that occurred around the same time she started noticing the discomfort but denies any tick bite. She does report chronic TMJ issues and pain but states that this feels different today. Physical exam shows an unk comfortable appearing patient that does have slight trismus, pain with palpation of teeth #18 and 19, and swelling to the left lower jaw. Given the patient's symptoms have been going on for 4 days, She was seen yesterday in the emergency department and given narcotics for concern of chronic TMJ pain, and now reporting fever and chills I do feel that CT imaging and labs are warranted for concern of dental infection versus abscess. Patient given Toradol pending results. Pending results Toradol had minimal effect so I did discuss with patient risk versus benefit of dental block which she was agreeable to so a inferior alveolar block was performed on the left lower jaw with 2.5 mL's of 20% 1% lidocaine with 80% 0.5 %bupivacaine. Patient tolerated procedure well and had appropriate anesthetic relief after the procedure. Review of labs show a leukocytosis, nondiagnostic CMP and negative . Patient sent to CT scan and CT scan results were reviewed with radiologist and there appears to be impacted wisdom teeth throughout oral cavity, and a small periapical abscess corresponding to tooth #17 which is where patient has most of the discomfort. Given the location of this small periapical abscess I do not feel that this can be safely drained at this time given patient's trismus and even difficulty with her opening her jaw. Patient is otherwise stable afebrile nontoxic in appearance. Patient started on Augmentin twice daily for a week, return precautions were discussed, and patient strongly encouraged to follow-up with a local dental provider for more definitive oral care within the next week. After discussion of diagnosis and plan of care patient has no further needs, questions, or concerns and states clear understanding to return to the emergency department for any worsening symptoms. HPI General Mode of arrival: ambulatory. Date/Time Provider Initiated Documentation: 04/23/19 19:01. Limitations to Documentation: no limitations. Information obtained by: patient and RN notes reviewed. History of Present Illness 43 year old F presents to the emergency department with the chief complaint of Left jaw pain, fever, described as severe, with intensity rated at 10. Quality is described as aching and sharp, and is localized to the mouth. Related Data Home Medications Medication Instructions Recorded Confirmed omeprazole 40 mg PO DAILY #90 tab-cap 06/25/18 04/23/19 olanzapine 5 mg tablet 5 mg PO DAILY 10/24/18 04/23/19 lamotrigine 100 mg tablet 200 mg PO DAILY tab 10/31/18 04/23/19 alprazolam 0.5 mg tablet 1 mg PO DAILY PRN tab 02/14/19 04/23/19 cholecalciferol (vitamin D3) 1,000 5,000 unit PO .weekly cap 02/14/19 04/23/19 unit capsule amoxicillin-pot clavulanate 1 tab PO BID #14 tab 04/23/19 [Augmentin] Previous Rx's Medication Instructions Recorded omeprazole 40 mg PO DAILY #90 tab-cap 06/25/18 amoxicillin-pot clavulanate 1 tab PO BID #14 tab 04/23/19 [Augmentin] Allergies Allergy/AdvReac Type Severity Reaction Status Date / Time erythromycin base Allergy Severe Hives, Verified 04/23/19 18:52 Vomitting Influenza Virus Vaccines Allergy Severe very ill, Verified 04/22/19 18:27 high fever, vomiting, muscle aches for 2 weeks shellfish derived Allergy Severe anaphylaxis Verified 04/23/19 18:52 Sulfa (Sulfonamide Allergy Unknown Hives, Verified 04/23/19 18:52 Antibiotics) Rash, Vomitting paroxetine AdvReac Severe Ineffective- Verified 04/22/19 18:27 Suicide attempt clonazepam AdvReac Intermediate palpatations, Verified 04/22/19 18:27 shakey doxepin AdvReac Mild dizziness Verified 04/22/19 18:27 metronidazole AdvReac Unknown GI upset Verified 04/22/19 18:27 walnuts Allergy Intermediate gi upset Uncoded 04/23/19 18:52 rash General Stated Complaint: Fever MARYAM: 3 Review of Systems Constitutional Reports chills, Reports fever(s), Reports malaise and Reports poor appetite ENT Reports as per HPI, Reports dental pain, Reports otalgia and Reports facial pain Respiratory Denies cough, Denies stridor and Denies wheezing Allergic/Immunologic Denies wheezing [facility] Medical History Gastritis (Acute) Esophagitis (Acute) Colorectal polyps (Acute) Diverticulosis (Acute) Chronic diarrhea (Acute) Bipolar 1 disorder, depressed, severe (Chronic) RLS (restless legs syndrome) (Chronic) Vitamin D deficiency (Acute 12/29/16) Tobacco use disorder (Acute) Insomnia (Acute 11/16/17) GERD (gastroesophageal reflux disease) (Acute 05/25/16) Anxiety Depression Gallstones Migraine Nephrolithiasis Ovarian cyst Tobacco use Surgical History section Cholecystectomy Oophrectomy, Right Family History Mother COPD (chronic obstructive pulmonary disease) Depression Heart disease Stroke Father Heart disease Hyperlipidemia Neoplasm Asthma Grandfather Heart disease Hyperlipidemia Grandfather Heart disease Hyperlipidemia Grandmother Diabetes Essential hypertension Depression Heart disease Hyperlipidemia Grandmother Diabetes Personal history of malignant neoplasm Heart disease Stroke Brother Substance abuse Asthma Daughter Asthma Daughter Personal history of malignant neoplasm Asthma Maternal Aunt No problems noted. Social History Smoking/Tobacco Use Status: Current every day Tobacco Type: cigarettes Alcohol Intake: current Alcohol Intake frequency: a few times a week Alcohol type: hard liquor Drug use: Never Substance use type: does not use Household members: spouse, children and other Details: pt mother and mother in law Housing: house Number of Children: 2 current occupation: b/c of anxiety Pets and animals: Yes Pets and animals: cat(s) and dog(s) Sexually active: Yes What type of physical activity do you participate in: none Seatbelt use: always Working smoke detector in home: Yes Fire extinguisher in home: Yes Carbon monox detector in home: No Do you feel safe at home: Yes Do you feel safe in your relationship?: Yes Exam Const General: cooperative Orientation: alert, awake and oriented x3 Limitations: mental status not altered [facility] Head: normal to inspection, normocephalic and atraumatic Ears: hearing grossly normal bilaterally, external ears normal, TM's normal bilaterally, normal mastoids bilaterally and no periauricular adenopathy General nose exam: external nose normal Mouth: oropharynx normal, no drooling, no muffled voice, normal tongue and trismus Teeth and gingiva: caries, poor dentition and other (Tenderness to tooth 18 and 19 with swelling around base) Throat: posterior oropharynx normal, tonsils normal and uvula midline Eyes General: appearance normal, both eyes and all related structures Pupils: PERRL Neck Neck: normal visual inspection, full ROM, no lymphadenopathy, no meningeal signs, trachea midline, supple, no anterior neck swelling and no midline deformity Resp Effort & Inspection: normal respiratory effort and able to speak in complete sentences Course Vital Signs Temperature 37.2 C 04/23/19 18:49 Pulse 95 H 04/23/19 18:49 Respiratory Rate 14 04/23/19 18:49 Blood Pressure 117/74 04/23/19 18:49 Pulse Oximetry 100 04/23/19 18:49 Temperature 37.2 C 04/23/19 18:49 Temperature Source Skin 04/23/19 18:49 Pulse 95 H 04/23/19 18:49 Respiratory Rate 14 04/23/19 18:49 Respiratory Effort 04/23/19 18:56 Blood Pressure 117/74 04/23/19 18:49 Blood Pressure Position Sitting 04/23/19 18:49 Pulse Oximetry 100 04/23/19 18:49 Oxygen Delivery Method Room Air 04/23/19 18:49 Oxygen Flow Rate 0 04/23/19 18:49 Pain Level 10 04/23/19 18:49
[2019-04-23 19:55] LABS: Abs Immature Grans 0.05 k/cumm (0.0-0.09); Absolute Basophil Count 0.02 k/cumm (0.0-0.2); Absolute Eosinophil Count 0.04 k/cumm (0.0-0.7); Absolute Lymphocyte Count 2.64 k/cumm (1.2-3.4); Absolute Monocyte Count 1.39 k/cumm (0.11-0.7); Absolute Neutrophil Count 14.43 k/cumm (1.2-6.7); Basophils % 0.1; Eosinophils % 0.2; HCT 44.7 % (36.0-46.0); HGB 15.7 g/dL (12.0-15.5); Immature Grans % 0.3; Lymphocytes % 14.2; Mean Corp. HGB Concentration 35.1 g/dL (32.0-36.0); Mean Corpuscular Hemoglobin 33.3 pg (27.0-33.0); Mean Corpuscular Volume 94.9 fL (80-95); Mean Platelet Volume 8.9 fL (8.0-11.0); Monocytes % 7.5; Neutrophils % 77.7; Platelet Count 405 x1000/uL (130-400); RBC 4.71 m/cumm (4.00-5.20); RBC Distribution Width 15.3 % (11.7-14.6); White Blood Cell Count 18.57 k/cumm (4.4-10.8)
[2019-04-23] MEDS: Omnipaque 350 MG/ML 100 ML BTL IJ (19:55)
[2019-04-23] MEDS: Ketorolac 30 MG/ML VIAL IVP (19:59)
[2019-04-23 20:05] LABS: ALT 21 U/L (12-78); AST 10 U/L (15-37); Albumin 3.9 g/dL (3.4-5.0); Alkaline Phosphatase 97 U/L (46-116); Anion Gap 10.8 mmol/L (3-11); BUN 6 mg/dL (7-18); Bilirubin, Total 0.2 mg/dL (0.2-1.0); CO2 27.2 mmol/L (21.0-32.0); CREATININE 0.75 mg/dL (0.55-1.02); Chloride 103 mmol/L (98-107); Glucose 110 mg/dL (70-100); Potassium 3.5 mmol/L (3.5-5.1); Sodium 141 mmol/L (136-145); Total Protein 7.3 g/dL (6.4-8.2)
--- NOTE | 2019-04-23 20:55 | DI.VRAD_ITS ---
Addendum created by Alex Castillo MD on 04/23/2019 8:56:43 PM EDT Findings were discussed with LELA STEELE at 04/23/2019 8:56 PM EDT. Initial report created on 04/23/2019 8:54:37 PM EDT EXAM: CT Neck With Contrast EXAM DATE/TIME: 04/23/2019 7:19 PM CLINICAL HISTORY: 43 years old, female; Other: Tmj dental pain, fever; Additional info: Pain 2 days TECHNIQUE: Imaging protocol: Axial computed tomography images of the neck with intravenous contrast. Coronal and sagittal reformatted images were created and reviewed. Radiation optimization: All CT scans at this facility use at least one of these dose optimization techniques: automated exposure control; mA and/or kV adjustment per patient size (includes targeted exams where dose is matched to clinical indication); or iterative reconstruction. Contrast material: OMNIPAQUE 350; Contrast volume: 100 ml; Contrast route: IV; COMPARISON: US thyroid 03/19/2019 5:19 PM FINDINGS: Brain: Visualized intracranial compartment is unremarkable. Nasopharynx: Normal. Oropharynx: Bilateral tonsolloliths are incidentally noted. These are most likely benign. Increased hypodensity to the left tonsil is felt to be artifactual from adjacent streak artifact. Tonsils appear otherwise unremarkable. Hypopharynx: Normal. Larynx: Normal. Normal epiglottis. Retropharyngeal space: Normal. Submandibular/Parotid glands: Normal. Glands are normal in size. Thyroid: Normal. No enlarged or calcified nodules. Lymph nodes: Normal. No lymphadenopathy. Trachea: Visualized trachea is unremarkable. Lungs: Normal as visualized. Vasculature: No acute findings. Dental: The 4 wisdom teeth are still present, all of which appear to be impacted. There is a small periapical lucency surrounding tooth #17, raising concern for the possibility of a small periapical abscess. Please note that the roots of teeth #'s 1 and 16 are traversing into the left and right maxillary sinuses respectively. Bones/joints: The TMJs are unremarkable. No acute skeletal abnormality appreciated. Soft tissues: Nonacute findings. IMPRESSION: 1. Main diagnostic consideration is that of impacted wisdom teeth with concern for a small periapical abscess surrounding tooth #17, as detailed above. 2. Other incidental findings as above. Dictated and Authenticated by: Alex Castillo MD. Ordering:WILLA Jon MD
[2019-04-23] MEDS: Amoxicillin 875/Clav. 125 TAB PO (21:28)
[2019-04-23 21:53] VITALS: BP 101/69; PULSE 73; RESP 16; TEMP 37; O2SAT 97
== END 2019-04-23 21:54 | disposition home or self-care (01) ==
PROVIDERS: Emergency Provider Nurse Practitioner Family; PCP Nurse Practitioner
DX: K04.7 Periapical abscess without sinus (principal); K01.1 Impacted teeth
CPT/HCPCS: 36415; 70491; 80053; 81025; 96374; 99285; 85025; 99284; J1885; J3490

== ENCOUNTER 2019-04-26 08:23 | Outpatient (CLI) | payer OTHER, SELFPAY ==
[2019-04-26 11:05] LABS: Total Iron Binding Capacity 249 ug/dL (250-450)
[2019-04-26 11:35] LABS: Ferritin 22 ng/mL (8-388); TSH (W/Ref FT4) 0.13 uIU/mL (0.358-3.74); Vitamin B12 599 pg/mL (193-986)
[2019-04-26 13:34] LABS: ESR 16 MM/HR (0-20)
[2019-04-29 07:56] LABS: Vitamin D 25 Total 47.8 ng/ml (30-100)
[2019-04-29 09:16] LABS: Rheumatoid Factor <8 IU/mL (<12.5)
[2019-04-29 11:41] LABS: Lyme Ab w Rflx to Lyme Confirm Negative
[2019-04-29 14:49] LABS: ANA Interpretation Negative (NEGAT)
== END 2019-04-26 08:43 ==
PROVIDERS: PCP Nurse Practitioner; Visit Provider Nurse Practitioner
DX: E55.9 Vitamin D deficiency, unspecified (principal); M25.50 Pain in unspecified joint; M79.10 Myalgia, unspecified site; M79.89 Other specified soft tissue disorders; R53.81 Other malaise; R53.83 Other fatigue; I10 Essential (primary) hypertension
CPT/HCPCS: 36415; 82306; 85652; 82607; 82728; 83550; 84439; 84443; 86038; 86431; 86618

== ENCOUNTER 2019-08-05 01:03 | Outpatient (CLI) | payer OTHER, SELFPAY ==
[2019-08-05 13:38] LABS: FREE T4 1.19 ng/dL (0.76-1.46); TSH 0.09 uIU/mL (0.36-3.74)
[2019-08-06 00:08] LABS: T3, Total 133 ng/dl (97-169)
[2019-08-06 10:18] LABS: Thyroperoxidase Antibody <28 U/mL (<61)
== END 2019-08-05 01:23 ==
PROVIDERS: PCP Nurse Practitioner; Visit Provider Internal Medicine Endocrinology, Diabetes & Metabolism
DX: E07.9 Disorder of thyroid, unspecified (principal)
CPT/HCPCS: 36415; 84439; 84443; 84480; 86376

== ENCOUNTER 2019-08-26 09:55 | Outpatient (CLI) | payer OTHER, SELFPAY ==
[2019-08-26 16:46] LABS: Abs Immature Grans 0.03 k/cumm (0.0-0.09); Absolute Basophil Count 0.02 k/cumm (0.0-0.2); Absolute Eosinophil Count 0.13 k/cumm (0.0-0.7); Absolute Lymphocyte Count 3.12 k/cumm (1.2-3.4); Absolute Monocyte Count 0.76 k/cumm (0.11-0.7); Absolute Neutrophil Count 6.89 k/cumm (1.2-6.7); Basophils % 0.2; Eosinophils % 1.2; HGB 15.6 g/dL (12.0-15.5); Immature Grans % 0.3; Lymphocytes % 28.5; Mean Corp. HGB Concentration 34.7 g/dL (32.0-36.0); Mean Corpuscular Hemoglobin 32.6 pg (27.0-33.0); Mean Corpuscular Volume 94.1 fL (80-95); Mean Platelet Volume 8.9 fL (8.0-11.0); Monocytes % 6.9; Neutrophils % 62.9; Platelet Count 449 x1000/uL (130-400); RBC 4.78 m/cumm (4.00-5.20); RBC Distribution Width 14.9 % (11.7-14.6); White Blood Cell Count 10.95 k/cumm (4.4-10.8)
[2019-08-26 17:08] LABS: ALT 17 U/L (14-59); AST 14 U/L (15-37)
== END 2019-08-26 10:15 ==
PROVIDERS: PCP Nurse Practitioner; Visit Provider Internal Medicine Endocrinology, Diabetes & Metabolism
DX: T88.7XXA Unspecified adverse effect of drug or medicament, initial encounter (principal)
CPT/HCPCS: 36415; 84450; 84460; 85025

== ENCOUNTER 2019-09-19 08:35 | Outpatient (CLI) | payer OTHER, SELFPAY ==
[2019-09-24 15:06] LABS: 25-Hydroxy D Total 74 ng/mL; 25-Hydroxy D2 <4.0 ng/mL; 25-Hydroxy D3 74 ng/mL
== END 2019-09-19 08:55 ==
PROVIDERS: PCP Nurse Practitioner; Visit Provider Nurse Practitioner Psychiatric/Mental Health
DX: F31.81 Bipolar II disorder (principal); E55.9 Vitamin D deficiency, unspecified
CPT/HCPCS: 36415; 82306

== ENCOUNTER 2019-10-24 08:22 | Outpatient (CLI) | payer OTHER, SELFPAY ==
[2019-10-24 10:50] LABS: Abs Immature Grans 0.01 k/cumm (0.0-0.09); Absolute Basophil Count 0.03 k/cumm (0.0-0.2); Absolute Eosinophil Count 0.05 k/cumm (0.0-0.7); Absolute Lymphocyte Count 1.84 k/cumm (1.2-3.4); Absolute Monocyte Count 0.77 k/cumm (0.11-0.7); Absolute Neutrophil Count 5.82 k/cumm (1.2-6.7); Basophils % 0.4; Eosinophils % 0.6; HCT 46.2 % (36.0-46.0); HGB 16.1 g/dL (12.0-15.5); Immature Grans % 0.1; Lymphocytes % 21.6; Mean Corp. HGB Concentration 34.8 g/dL (32.0-36.0); Mean Corpuscular Hemoglobin 32.9 pg (27.0-33.0); Mean Corpuscular Volume 94.3 fL (80-95); Mean Platelet Volume 8.4 fL (8.0-11.0); Neutrophils % 68.3; Platelet Count 465 x1000/uL (130-400); RBC Distribution Width 14.6 % (11.7-14.6); White Blood Cell Count 8.52 k/cumm (4.4-10.8)
[2019-10-24 12:15] LABS: ALT 22 U/L (14-59); AST 14 U/L (15-37); FREE T4 1.03 ng/dL (0.76-1.46); TSH 0.32 uIU/mL (0.36-3.74)
[2019-10-24 23:07] LABS: T3, Total 152 ng/dL (97-169)
== END 2019-10-24 08:42 ==
PROVIDERS: Nurse Practitioner Adult Health; PCP Nurse Practitioner; Visit Provider Internal Medicine Endocrinology, Diabetes & Metabolism
DX: E05.90 Thyrotoxicosis, unspecified without thyrotoxic crisis or storm (principal)
CPT/HCPCS: 36415; 84439; 84443; 84450; 84460; 84480; 85025

== ENCOUNTER 2019-12-27 01:14 | Outpatient (CLI) | payer OTHER, SELFPAY ==
[2020-01-01 12:54] LABS: 25-Hydroxy D Total 39 ng/mL; 25-Hydroxy D2 <4.0 ng/mL; 25-Hydroxy D3 39 ng/mL
== END 2019-12-27 01:34 ==
PROVIDERS: PCP Nurse Practitioner; Visit Provider Nurse Practitioner Psychiatric/Mental Health
DX: F31.81 Bipolar II disorder (principal)
CPT/HCPCS: 36415; 82306

== ENCOUNTER 2020-01-16 02:56 | Outpatient (CLI) | payer OTHER, SELFPAY ==
[2020-01-16 08:49] LABS: Abs Immature Grans 0.02 k/cumm (0.0-0.09); Absolute Basophil Count 0.03 k/cumm (0.0-0.2); Absolute Eosinophil Count 0.06 k/cumm (0.0-0.7); Absolute Lymphocyte Count 1.81 k/cumm (1.2-3.4); Absolute Monocyte Count 0.67 k/cumm (0.11-0.7); Absolute Neutrophil Count 7.94 k/cumm (1.2-6.7); Basophils % 0.3; Eosinophils % 0.6; HCT 45.1 % (36.0-46.0); HGB 15.6 g/dL (12.0-15.5); Immature Grans % 0.2 %; Lymphocytes % 17.2; Mean Corp. HGB Concentration 34.6 g/dL (32.0-36.0); Mean Corpuscular Hemoglobin 32.9 pg (27.0-33.0); Mean Corpuscular Volume 95.1 fL (80-95); Mean Platelet Volume 8.3 fL (8.0-11.0); Monocytes % 6.4; Neutrophils % 75.3; Platelet Count 415 x1000/uL (130-400); RBC 4.74 m/cumm (4.00-5.20); RBC Distribution Width 14.9 % (11.7-14.6); White Blood Cell Count 10.53 k/cumm (4.4-10.8)
[2020-01-16 09:57] LABS: ALT 22 U/L (14-59); AST 16 U/L (15-37); FREE T4 0.67 ng/dL (0.76-1.46); TSH 6.82 uIU/mL (0.36-3.74)
[2020-01-16 16:58] LABS: T3, Total 145 ng/dL (97-169)
== END 2020-01-16 03:16 ==
PROVIDERS: Internal Medicine Endocrinology, Diabetes & Metabolism; PCP Nurse Practitioner; Visit Provider Internal Medicine Endocrinology, Diabetes & Metabolism
DX: E05.90 Thyrotoxicosis, unspecified without thyrotoxic crisis or storm (principal)
CPT/HCPCS: 36415; 84439; 84443; 84450; 84460; 84480; 85025

== ENCOUNTER 2020-05-01 03:58 | Outpatient (CLI) | payer OTHER, SELFPAY ==
[2020-05-01 11:39] LABS: FREE T4 1.05 ng/dL (0.76-1.46); TSH 0.35 uIU/mL (0.36-3.74)
[2020-05-01 17:13] LABS: T3, Total 165 ng/dL (97-169)
== END 2020-05-01 04:18 ==
PROVIDERS: PCP Nurse Practitioner; Visit Provider Internal Medicine Endocrinology, Diabetes & Metabolism
DX: E05.90 Thyrotoxicosis, unspecified without thyrotoxic crisis or storm (principal)
CPT/HCPCS: 36415; 84439; 84443; 84480

== ENCOUNTER 2020-05-22 03:13 | Outpatient (CLI) | payer OTHER, SELFPAY ==
[2020-05-22 13:43] LABS: ALT 20 U/L (14-59); AST 15 U/L (15-37); Albumin 3.8 g/dL (3.4-5.0); Alkaline Phosphatase 100 U/L (46-116); Anion Gap 11.9 mmol/L (3-11); BUN 9 mg/dL (7-18); Bilirubin, Total 0.2 mg/dL (0.2-1.0); CO2 24.1 mmol/L (21.0-32.0); CREATININE 0.77 mg/dL (0.55-1.02); Calcium 9.1 mg/dL (8.5-10.1); Chloride 102 mmol/L (98-107); Creatine Kinase 61 U/L (26-192); Glucose 105 mg/dL (74-106); Sodium 138 mmol/L (136-145); Total Protein 7.1 g/dL (6.4-8.2)
[2020-05-22 14:13] LABS: ESR 10 mm/hr (0-20)
[2020-05-22 16:25] LABS: Rheumatoid Factor <8.6 IU/mL (<12.0)
[2020-05-25 12:29] LABS: Lyme Ab w Rflx to Lyme Confirm Negative (Negative)
[2020-05-25 15:34] LABS: ANA Interpretation Negative (Negative)
[2020-05-25 17:26] LABS: Anaplasma phagocytophilum Negative (Negative); B. miyamotoi PCR Negative (Negative); Babesia divergens/MO-1 Negative (Negative); Babesia duncani Negative (Negative); Babesia microti Negative (Negative); Ehrlichia chaffeensis Negative (Negative); Ehrlichia ewingii/canis Negative (Negative); Ehrlichia muris eauclairensis Negative (Negative)
== END 2020-05-22 03:33 ==
PROVIDERS: PCP Nurse Practitioner; Visit Provider Nurse Practitioner
DX: M79.18 Myalgia, other site (principal); M25.50 Pain in unspecified joint
CPT/HCPCS: 36415; 80053; 82550; 85652; 87798; 86038; 86140; 86431; 86618

== ENCOUNTER 2020-06-05 02:17 | Outpatient (CLI) | payer OTHER, SELFPAY ==
[2020-06-05 14:45] LABS: FREE T4 0.91 ng/dL (0.76-1.46); TSH 0.76 uIU/mL (0.36-3.74)
[2020-06-05 21:35] LABS: T3, Total 132 ng/dL (97-169)
== END 2020-06-05 02:37 ==
PROVIDERS: PCP Nurse Practitioner; Visit Provider Internal Medicine Endocrinology, Diabetes & Metabolism
DX: E05.90 Thyrotoxicosis, unspecified without thyrotoxic crisis or storm (principal)
CPT/HCPCS: 36415; 84439; 84443; 84480

== ENCOUNTER 2020-06-26 04:28 | Outpatient (CLI) | payer OTHER, SELFPAY ==
[2020-06-26 12:56] LABS: Abs Immature Grans 0.03 10^3/uL (0.0-0.06); Absolute Basophil Count 0.04 10^3/uL (0.0-0.2); Absolute Eosinophil Count 0.14 10^3/uL (0.0-0.7); Absolute Lymphocyte Count 2.28 10^3/uL (1.2-3.4); Absolute Monocyte Count 0.55 10^3/uL (0.1-0.8); Absolute Neutrophil Count 6.63 10^3/uL (1.2-6.7); Basophils % 0.4; Eosinophils % 1.4; HCT 46.1 % (36.0-46.0); HGB 15.5 g/dL (11.2-15.7); Immature Grans % 0.3; Lymphocytes % 23.6; MCHC 33.6 % (32.0-36.0); MCV 95.2 fL (80-95); Monocytes % 5.7; Neutrophils % 68.6; Nucleated RBC 0 %; Platelet Count 372 10^3/uL (130-400); RBC 4.84 10^6/uL (3.93-5.22); RDW 14.6 % (11.7-14.6); RDW-SD 51.9 fL; WBC 9.67 10^3/uL (4.4-10.8)
[2020-06-26 14:13] LABS: ALT 21 U/L (14-59); AST 12 U/L (15-37); Albumin 3.9 g/dL (3.4-5.0); Alkaline Phosphatase 116 U/L (46-116); Anion Gap 8.9 mmol/L (3-11); BUN 7 mg/dL (7-18); Bilirubin, Total 0.2 mg/dL (0.2-1.0); CO2 25.1 mmol/L (21.0-32.0); Calcium 9.2 mg/dL (8.5-10.1); Chloride 104 mmol/L (98-107); FREE T4 1.04 ng/dL (0.76-1.46); Glucose 116 mg/dL (74-106); Potassium 3.8 mmol/L (3.5-5.1); Sodium 138 mmol/L (136-145); TSH 0.65 uIU/mL (0.36-3.74); Total Protein 7.3 g/dL (6.4-8.2)
[2020-06-27 00:01] LABS: T3, Total 145 ng/dL (97-169)
[2020-06-29 09:37] LABS: Thyroperoxidase Antibody <28 U/mL (<=60)
[2020-06-29 15:16] LABS: IgA 108 mg/dL (85-499); Interpretation (See Note); Tissue Transglutaminase IgA <1.2 U/mL (<4.0)
[2020-06-30 17:54] LABS: Thyroid Stimulating Immunoglob <1.0 TSI index (<=1.3)
== END 2020-06-26 04:48 ==
PROVIDERS: PCP Nurse Practitioner; Visit Provider Internal Medicine Endocrinology, Diabetes & Metabolism
DX: R63.4 Abnormal weight loss (principal); R19.7 Diarrhea, unspecified; R11.2 Nausea with vomiting, unspecified; E05.90 Thyrotoxicosis, unspecified without thyrotoxic crisis or storm
CPT/HCPCS: 36415; 80053; 82784; 83516; 84439; 84443; 84445; 84480; 85025; 86376

== ENCOUNTER 2020-06-29 19:49 | Outpatient (REF) | payer OTHER, SELFPAY ==
[2020-06-30 10:46] LABS: Campylobacter PCR Negative (Negative); Salmonella PCR Negative (Negative); Shiga Toxin PCR Negative (Negative); Shigella/Enteroinvasive Ecoli Negative (Negative)
== END 2020-06-29 20:09 ==
LOC: LBN 19:49
PROVIDERS: PCP Nurse Practitioner; Visit Provider Nurse Practitioner Adult Health
DX: R19.7 Diarrhea, unspecified (principal); R63.4 Abnormal weight loss; R11.2 Nausea with vomiting, unspecified
CPT/HCPCS: 87505

== ENCOUNTER 2020-07-10 10:14 | Outpatient (REF) | payer OTHER, SELFPAY | END 2020-07-10 10:34 | LOC: LBN 10:14 | PROVIDERS: PCP Nurse Practitioner; Visit Provider Nurse Practitioner Adult Health | DX: R63.4 Abnormal weight loss (principal); R19.7 Diarrhea, unspecified; R11.2 Nausea with vomiting, unspecified | CPT/HCPCS: 87177; 87324 ==

== ENCOUNTER 2020-10-02 18:23 | Outpatient (REF) | payer OTHER, SELFPAY ==
[2020-10-05 18:16] LABS: Patient Race White; SARS-CoV-2 RNA Undetected (Undetected); SARS-CoV-2 Specimen Source Nasopharynx
== END 2020-10-02 18:43 ==
LOC: LBN 18:23
PROVIDERS: PCP Nurse Practitioner; Visit Provider Family Medicine
DX: J06.9 Acute upper respiratory infection, unspecified (principal)
CPT/HCPCS: U0003

== ENCOUNTER 2020-10-14 00:33 | Outpatient (CLI) | payer OTHER, SELFPAY ==
[2020-10-14] MEDS: Omnipaque 350 MG/ML 50 ML BTL PO (07:44)
--- NOTE | 2020-10-14 09:15 | DI.CT_ITS ---
EXAM: CT ABDOMEN PELVIS W CLINICAL HISTORY: SIGMOID DIVERTICULOSIS,UNINT WT LOSS,BLOATING, CHRONIC DIARREA TECHNIQUE: Imaging Protocol: Axial computed tomography images with coronal and sagittal reformatted images were created and reviewed CONTRAST MATERIAL: Intravenous: Omnipaque 350 Contrast volume:100 cc Oral: Oral contrast was also administered for bowel opacification. COMPARISON: CT RENAL COLIC WO CONTRAST from 10/23/2012 FINDINGS: ABDOMEN: Lung Bases: Mild increased markings posterior basal segment left lower lobe. No pleural effusions. There is no ascites. Liver: Normal density. No liver lesions identified. The gallbladder surgically absent. The biliary tree is not dilated. Pancreas: No evidence of pancreatic mass nor dilatation of the pancreatic duct. Spleen: Normal. The splenic and portal veins are patent. Adrenals: No masses seen. Kidneys: Left kidney unremarkable. There is a calculus in the lower pole of the left kidney which me asures 6 millimeters. No cysts or masses in the kidneys evident. No hydronephrosis on the left side . Phlebolith noted on the right side as well as on the left side. No calculi in lower ureters nor w ithin the urinary bladder. Abdominal Aorta: The lower abdominal aorta is atherosclerotic and cysts slightly prominent with lack of normal tapering, this at and below the level of the in patent inferior mesenteric artery. Mild at herosclerotic disease extends into both common iliac arteries without a tight stenosis this level. N o aneurysmal dilatation of the iliac arteries. There is no evidence of anterior abdominal wall hernia, bowel obstruction nor free air. Bowel: No obstruction or bowel wall thickening. No evidence for appendicitis. PELVIS: Uterus slightly prominent. No abnormal adnexal masses nor free fluid in the pelvis. Surgical clip i s seen in the left adnexa in the region of the left ovary. Follicular cysts are noted in left ovary. Oral contrast has not reached the colon by the time of image acquisition but the terminal ileum is opacified and appears unremarkable. There is no adenopathy around the aortic bifurcation nor along the iliac chains and there is no ingui nal adenopathy. Osseous: No significant osseous lesions. IMPRESSION: 1. There is 6 millimeter calculus in the right kidney which appears nonobstructive. There is no hydr onephrosis nor hydroureter. No calculi in the nondistended ureters nor in the urinary bladder. 2. RADIATION DOSE DELIVERED: 722.66mGy.cm Total DLP DATA REPOSITORY: All CT scans at this facility are submitted to the National Radiology Data Registry (NRDR) Dose Index Registry (DIR) with the [employer] (ACR). RADIATION OPTIMIZATION: All CT scans at this facility use at least one of these dose optimization te chniques: automated exposure control; mA and/or kV adjustment per patient size (includes targeted exa ms where dose is matched to clinical indication); or iterative reconstruction.
[2020-10-14] MEDS: Omnipaque 350 MG/ML 100 ML BTL IJ (09:16)
[2020-10-14] MEDS: Normal Saline - Diluent 50 ML VIAL IV (09:23)
[2020-10-14] MEDS: Normal Saline Flush 10 ML SYR IVP (09:24)
== END 2020-10-14 00:53 ==
PROVIDERS: Visit Provider Nurse Practitioner Adult Health
DX: N20.0 Calculus of kidney (principal); K57.90 Diverticulosis of intestine, part unspecified, without perforation or abscess without bleeding; K52.9 Noninfective gastroenteritis and colitis, unspecified; R63.4 Abnormal weight loss
CPT/HCPCS: 74177; J3490; Q9967

== ENCOUNTER 2021-02-04 14:58 | Outpatient (REF) | payer OTHER, SELFPAY ==
--- NOTE | 2021-02-04 14:00 | PAPFT_PTH ---
PATIENT: Franchesca Dickson LOC: [facility] U#:[id number] AGE/SX: 45/F ROOM: RE02/04/[address]: MOISES An : 1975 BED: DIS: 02/04/2021 SPEC #: [id number] RECD: 02/04/21 17:35 STATUS: RHIANNON REQ #: [id number] PALLAVI: 02/04/21 14:[address]: Winsome Bynum DEPT: [facility] Cytology RECD BY: Zari Helm ENTERED: 02/04/21 17:35 SP TYPE: PAPFT OT DR: Unknown,Unknown Tissues: 1 - CX/ENDOCX FOR PAP SMEARS Procedures: PAP THIN PREP/[facility] Screening HPV DNA PROBE Comments: [id number]
[2021-02-05 15:01] LABS: Chlamydia Result Negative (Negative); GC Result Negative (Negative)
== END 2021-02-04 14:59 | disposition home or self-care (01) ==
LOC: LBN 14:58
PROVIDERS: Visit Provider Nurse Practitioner Family
DX: Z11.3 Encounter for screening for infections with a predominantly sexual mode of transmission (principal); Z12.4 Encounter for screening for malignant neoplasm of cervix; Z11.51 Encounter for screening for human papillomavirus (HPV)
CPT/HCPCS: 87491; 87591; 88142; 87624

== ENCOUNTER 2021-02-26 10:01 | Outpatient (REF) | payer OTHER, SELFPAY ==
--- NOTE | 2021-02-26 09:40 | ENDOMET_PTH ---
PATIENT: Franchesca Dickson LOC: [facility] U#:[id number] AGE/SX: 45/F ROOM: RE02/26/[address]: Katie Vega : 1975 BED: DIS: 02/26/2021 SPEC #: [id number] RECD: 02/26/21 12:27 STATUS: RHIANNON RERosemary #: [id number] PALLAVI: 02/26/21 09:[address]: Katie Vega DEPT: Surgical Specimen RECD BY: Zari Helm ENTERED: 02/26/21 12:28 SP TYPE: Endomet OTHR DR: Odalys Escobar Tissues: 1 - ENDOMETRIUM BX/VAMSI Procedures: GROSS AND MICRO LEVEL 4 Comments: [id number]
== END 2021-02-26 10:02 | disposition home or self-care (01) ==
LOC: LBN 10:01
PROVIDERS: PCP Nurse Practitioner Family; Visit Provider Obstetrics & Gynecology Gynecology
DX: N85.8 Other specified noninflammatory disorders of uterus (principal); N93.9 Abnormal uterine and vaginal bleeding, unspecified; R10.2 Pelvic and perineal pain
CPT/HCPCS: 88305

== ENCOUNTER 2021-03-22 03:18 | Outpatient (CLI) | payer OTHER, SELFPAY ==
[2021-03-22 09:39] LABS: HCT 47.3 % (36.0-46.0); HGB 15.9 g/dL (11.2-15.7); MCH 34.3 pg (27.0-33.0); MCHC 33.6 % (32.0-36.0); MCV 101.9 fL (80-95); MPV 8.5 fL (8.0-11.0); Platelet Count 371 10^3/uL (130-400); RBC 4.64 10^6/uL (3.93-5.22); RDW 14.7 % (11.7-14.6); RDW-SD 55.3 fL; WBC 8.78 10^3/uL (4.4-10.8)
[2021-03-22 10:19] LABS: Source Nasal/Nares
[2021-03-22 10:41] LABS: BUN 13 mg/dL (7-18); CREATININE 0.9 mg/dL (0.55-1.02); Calcium 8.8 mg/dL (8.5-10.1); Chloride 108 mmol/L (98-107); Glucose 114 mg/dL (74-106); Potassium 4.1 mmol/L (3.5-5.1); Sodium 143 mmol/L (136-145)
[2021-03-22 12:28] LABS: COVID-19 PCR Negative (Negative)
[2021-03-23 14:08] LABS: HCG Quant, Pregnancy 1 mIU/mL (1-3)
== END 2021-03-22 03:19 | disposition home or self-care (01) ==
LOC: LBO 03:18
PROVIDERS: PCP Nurse Practitioner Family; Visit Provider Obstetrics & Gynecology Gynecology
DX: N93.9 Abnormal uterine and vaginal bleeding, unspecified (principal); N94.19 Other specified dyspareunia; R10.2 Pelvic and perineal pain; Z20.822 Contact with and (suspected) exposure to COVID-19; Z01.818 Encounter for other preprocedural examination; Z01.812 Encounter for preprocedural laboratory examination
CPT/HCPCS: 36415; 80048; 85027; 86850; 86900; 86901; 87635; 84702

== ENCOUNTER 2021-03-24 14:08 | Observation (INO) | payer OTHER, SELFPAY ==
[2021-03-24] VITALS (18 sets, daily range): BP systolic 86–113; BP diastolic 41–74; PULSE 50–73; RESP 11–18; TEMP 36–36.7; O2SAT 92–100; BMI 25.4
--- NOTE | 2021-03-24 10:02 | ANES.PREOP_ITS ---
General Info Date of Service Date Performed: 03/24/21 Height: 5 ft 1 in Weight: 61.235 kg Body Mass Index (BMI): 25.4 Surgical Procedure: Operation Date: 03/24/21 11:25 Proposed Procedures Side Surgeon p Hysterectomy Vaginal Laparoscopic Assist,cysto, b salpingectomy Katie Vega MD Meds Allergies and Home Medications Allergies Allergy/AdvReac Type Severity Reaction Status Date / Time erythromycin base Allergy Severe Hives, Verified 03/22/21 09:44 Vomitting Influenza Virus Vaccines Allergy Severe very ill, Verified 03/22/21 09:44 high fever, vomiting, muscle aches for 2 weeks shellfish derived Allergy Severe anaphylaxis Verified 03/22/21 09:44 Sulfa (Sulfonamide Allergy Unknown Hives, Verified 03/22/21 09:44 Antibiotics) Rash, Vomitting paroxetine AdvReac Severe Ineffective- Verified 03/22/21 09:44 Suicide attempt clonazepam AdvReac Intermediate palpatations, Verified 03/22/21 09:44 shakey doxepin AdvReac Mild dizziness Verified 03/22/21 09:44 metronidazole AdvReac Unknown GI upset Verified 03/22/21 09:44 walnuts Allergy Intermediate gi upset Uncoded 03/22/21 09:44 rash Home Medication Medication Instructions Recorded vilazodone 40 mg tablet 40 mg PO HS 05/08/19 topiramate 100 mg tablet 100 mg PO QHS 01/15/20 cariprazine 1.5 mg capsule 1.5 mg PO Q OTHER DAY 04/13/20 pantoprazole 40 mg tablet,delayed 40 mg PO DAILY 06/17/20 release dicyclomine 10 mg capsule 10 mg PO TID PRN 09/07/20 propranolol 10 mg tablet 10 mg PO BID PRN 11/02/20 pregabalin 50 mg capsule 50 mg PO BID 03/16/21 alprazolam 0.5 mg PO Q4H PRN 03/22/21 alprazolam 1 mg PO HS PRN 03/22/21 Lactobacillus acidophilus 1,000 mmu cells PO DAILY 03/24/21 [Acidophilus] Current Visit Medications: Current Medications Generic Name Dose Route Start Last Admin Trade Name Freq PRN Reason Stop Dose Admin Ringer's Solution 1,000 mls @ 125 mls/hr 03/24/21 06:00 IV 04/22/21 23:59 INFUSION KYLAH Cefazolin Sodium/Dextrose 2 gm in 50 mls @ 100 mls/hr 03/24/21 06:00 Ancef Duplex IVPB 04/22/21 23:59 PREOP KYLAH IV Miscellaneous Supplies 1 each 03/24/21 06:00 Iv Access IV 04/22/21 23:59 DIRECTED KYLAH Sodium Chloride 0 ml 03/24/21 06:00 Normal Saline Flush 10 Ml Syr IV 04/22/21 23:59 PRN PRN Sodium Chloride 0 ml 03/24/21 06:00 Normal Saline 10 Ml Vial IJ 04/22/21 23:59 DIRECTED PRN Sterile Water 0 ml 03/24/21 06:00 Water,Injection,Sterile 10 Ml Vial IJ 04/22/21 23:59 DIRECTED PRN PFSH Active Problems Active Problems: Problem Status Onset Code Depression, major, recurrent F33.9 GERD (gastroesophageal reflux disease) K21.9 Insomnia G47.00 Suicidal behavior with attempted self-injury T14.91XA Drug overdose, multiple drugs T50.901A Adjustment disorder with mixed anxiety and depressed mood 06/19/18 F43.23 Anxiety F41.9 Bipolar disorder, current episode depressed, severe, with psychotic features 07/10/18 F31.5 Depressive disorder F32.9 Kidney stone N20.0 Ovarian cyst, complex 07/17/14 N83.299 Palpitations R00.2 Smoker F17.200 Chronic daily headache R51 Migraine headache with aura G43.109 Migraine headache without aura G43.009 Medication overuse headache G44.40 Fatigue R53.83 Memory loss R41.3 Borderline personality disorder F60.3 Vaginitis 12/10/12 N76.0 Pain from breast implant 07/03/13 T85.848A Increased body mass index R63.8 Hyperthyroidism E05.90 Gestational hypertension O13.9 Gestational diabetes mellitus O24.419 Calculus of kidney N20.0 OCD (obsessive compulsive disorder) F42.9 Left thyroid nodule E04.1 PTSD (post-traumatic stress disorder) F43.10 Mammogram declined Z53.20 Myalgia M79.10 Joint pain M25.50 Gastro-esophageal reflux disease without esophagitis K21.9 Preop examination Z01.818 Pelvic pain R10.2 History of abnormal uterine bleeding Z87.42 Seasonal affective disorder Fibromyalgia M79.7 Abdominal cramping R10.9 Bloating R14.0 Gastritis K29.70 Esophagitis K20.9 Colorectal polyps K63.5 Diverticulosis K57.90 Chronic diarrhea K52.9 RLS (restless legs syndrome) G25.81 Vitamin D deficiency 12/29/16 E55.9 Tobacco use disorder F17.200 Insomnia 11/16/17 G47.00 GERD (gastroesophageal reflux disease) 05/25/16 K21.9 Medical History Medical History Abdominal cramping Anxiety Bipolar disorder Bloating Borderline personality disorder Chronic diarrhea Colorectal polyps 08/24/20 [facility] - Colonoscopy Depression Diverticulosis Esophagitis Fibromyalgia Gallstones Gastritis GERD (gastroesophageal reflux disease) (05/25/16) History of abnormal uterine bleeding 02/2021. EMBx. Insomnia (11/16/17) Migraine Nephrolithiasis Ovarian cyst Pelvic pain Preop examination RLS (restless legs syndrome) Seasonal affective disorder Tobacco use Tobacco use disorder Vitamin D deficiency (12/29/16) Surgical History Surgical History section x 2 Cholecystectomy Hx of colonoscopy Hx of esophagogastroduodenoscopy Oophrectomy, Right OVARIAN CYST Tobacco Smoking/Tobacco Use Status: Current every day Tobacco Type: cigarettes Smoking packs per day: 1 Smoking cigarettes per day: 20.0 Years smoked: 25 Smoking pack- years: 25.00 Alcohol Alcohol Intake: current Alcohol intake frequency: a few times a week Alcohol type: hard liquor Substance Use Substance use: Never Substance use type: does not use Prental History History 2 Para 2 Hx # Term Pregnancies 2 Multiple births Hx # Pregnancies Ectopic pregnancies AB induced Hx Number of Living Children 2 AB spontaneous Vital Signs and Lab Results Lab Results Blood Type / Crossmatch: Patient ABO/Rh A Negative 03/22/21 09:26 03/22/21 Antibody Screen Negative 03/22/21 09:26 03/22/21 Complete Blood Count: White Blood Count 8.78 10^3/uL (4.4-10.8) 03/22/21 09:26 03/22/21 Red Blood Count 4.64 10^6/uL (3.93-5.22) 03/22/21 09:03/22/21 Hemoglobin 15.9 g/dL (11.2-15.7) H 03/22/21 09:03/22/21 Hematocrit 47.3 % (36.0-46.0) H 03/22/21 09:03/22/21 Platelet Count 371 10^3/uL (130-400) 03/22/21 09:03/22/21 Complete Metabolic Panel: Sodium Level 143 mmol/L (136-145) 03/22/21 09:03/22/21 Potassium Level 4.1 mmol/L (3.5-5.1) 03/22/21 09:03/22/21 Chloride Level 108 mmol/L (98-107) H 03/22/21:03/22/21 Carbon Dioxide Level 24.0 mmol/L (21.0-32.0) 03/22/21 09:03/22/21 Blood Urea Nitrogen 13 mg/dL (7-18) 03/22/21 09:03/22/21 Creatinine 0.9 mg/dL (0.55-1.02) 03/22/21 09:03/22/21 Calcium Level 8.8 mg/dL (8.5-10.1) 03/22/21 09:03/22/21 Albumin 3.9 g/dL (3.4-5.0) 06/26/20 12:06/26/20 Glucose Level 114 mg/dL (74-106) H 03/22/21 09:03/22/21 Hemoglobin A1c 4.9 (4.5-6.5) 11/16/17 14:15 11/16/17 C-Reactive Protein 0.30 mg/dL (0.0-0.3) 05/22/20 12:10 05/22/20 Liver Function Panel: Alanine Aminotransferase (ALT/SGPT) 21 U/L (14-59) 06/26/20 12:35 06/26/20 Aspartate Amino Transf (AST/SGOT) 12 U/L (15-37) L 06/26/20 12:35 06/26/20 Coagulation Panel: No Data to Display Cardiac Panel: Troponin I < 0.02 ng/mL (0.00-0.06) 06/16/18 16:15 06/16/18 Creatine Kinase 61 U/L (26-192) 05/22/20 12:10 05/22/20 Arterial Blood Gas: No Data to Display Venous Blood Gas: Venous Blood pH 7.32 (7.32-7.43) 06/16/18 16:15 06/16/18 Venous Blood Partial Pressure O2 34 mm/Hg (28-44) 06/16/18 16:15 06/16/18 Venous Blood Partial Pressure CO2 50 mm/Hg (34-47) H 06/16/18 16:15 06/16/18 Venous Blood Oxygen Saturation 72 % (70-80) 06/16/18 16:15 06/16/18 Venous Blood HCO3 26 mmol/L (22-28) 06/16/18 16:15 06/16/18 Venous Blood Base Excess 0.0 mmol/L (-3-3) 06/16/18 16:15 06/16/18 Venous Blood Total Carbon Dioxide 23 mmol/L (22-29) 06/16/18 16:15 06/16/18 Pancreas Panel: No Data to Display Thyroid Panel: Thyroid Stimulating Hormone (TSH) 0.65 uIU/mL (0.36-3.74) 06/26/20 12:35 06/26/20 Thyroxine (T4) 5.1 ug/dL (4.5-12.5) 11/12/18 13:37 11/12/18 Infectious Disease: Coronavirus (COVID-19)(PCR) Negative (Negative) 03/22/21 09:36 03/22/21 Coronavirus 2019 Source Nasal/nares 03/22/21 09:36 03/22/21 Neisseria gonorrhoeae DNA Probe Negative (Negative) 02/04/21 14:00 02/04/21 Blood Cultures: No Data to Display Toxicology Panel: Ethyl Alcohol Level < 3.0 mg/dL (<3) 06/16/18 19:25 06/16/18 Urine Amphetamines Screen Negative (Negative) 06/16/18 16:29 06/16/18 Urine Benzodiazepines Screen Negative (Negative) 06/16/18 16:29 06/16/18 Urine Barbiturates Screen Negative (Negative) 06/16/18 16:29 06/16/18 Urine Cocaine Screen Negative (Negative) 06/16/18 16:29 06/16/18 Urine Methadone Screen Negative (Negative) 06/16/18 16:29 06/16/18 Urine Opiates Screen Negative (Negative) 06/16/18 16:29 06/16/18 Ur Tricyclic Antidepressants Screen Negative (Negative) 06/16/18 16:29 06/16/18 Ur Tetrahydrocannabinol (THC) Scrn Negative (Negative) 06/16/18 16:29 06/16/18 Panel: Urine HCG, Qualitative Negative 02/04/21 13:39 02/04/21 Serum HCG, Qualitative Negative 06/16/18 16:15 06/16/18 Beta HCG, Quantitative 1 mIU/mL (1-3) 03/22/21 09:26 03/22/21 Anesthesia Assessment and Plan Anesthesia History Personal History: No History of Anesthesia Complications Family History: No Family History of Anesthesia Complications Exercise Tolerance Exercise Tolerance: Metabolic Equivalents>4 Pertinent Negatives Pertinent Negatives: No Symptoms of GERD, No Major Cardiovascular Symptoms or Complaints, No Major Pulmonary Symptoms or Complaints and No History of CVA/TIA Cardiac & Pulmonary Exam Cardiac Exam: Normal S1/S2 Heart Sounds Pulmonary Exam: Clear Bilateral Breath Sounds Airway Exam Known Difficult Airway: No Mallampati Class: 3 Mouth Opening: Normal (> 3cm) Thyromental Distance: Greater than 3 cm Neck Range of Motion: Full ROM Neck Circumference: Normal Teeth Condition: Normal Dentition Airway Comment:: number 46 number [phone] missing ASA Classification ASA Score: ASA 2 Emergency Case?: No NPO Status NPO Status: NPO Clears >2 hours, Solids >8 hours Status Status: Negative HCG Anesthesia Plan Anesthesia Technique: General Anesthesia (Narcotic spinal) Airway Planned: Endotracheal Tube Monitors Used: Standard Monitors
[2021-03-24] MEDS: Lactated Ringers 1,000 ML 125 ML IV ×3 (10:45→20:59)
[2021-03-24] MEDS: ceFAZolin 2 GM/50 ML BAG IVPB (11:05)
[2021-03-24] MEDS: Bupivacaine 0.25% Pres-Free 30 ML VIAL (11:43)
--- NOTE | 2021-03-24 13:16 | UTER_PTH ---
PATIENT: Franchesca Dickson LOC: [facility] U#:[id number] AGE/SX: 45/F ROOM: OBS.304 RE03/24/[address]: Katie Vega : 1975 BED: A DIS: 03/25/2021 SPEC #: [id number] RECD: 03/24/21 16:06 STATUS: RHIANNON REQ #: [id number] PALLAVI: 03/24/21 13:[address]: Katie Vega DEPT: Surgical Specimen RECD BY: Zari Helm ENTERED: 03/24/21 16:06 SP TYPE: UTER OTHR DR: Odalys Escobar Tissues: 1 - UTERUS W OR W/O OVARIES(NOT TUMOR/PROLAPSE) Procedures: GROSS AND MICRO LEVEL 5 Comments: [id number]
--- NOTE | 2021-03-24 14:46 | ROE_ITS ---
Date of service: 03/24/21 Time of Service: 14:46 Operative Note Operative Note DATE OF PROCEDURE: 03/24/21 PRE-OP DIAGNOSIS: abnormal bleeding and pain with intercourse POST-OP DIAGNOSIS: same PROCEDURE: Laparoscopic-assisted vaginal hysterectomy with left salpingectomy, bladder cystoscopy SURGEON: Katie Vega SIDE SEAM ENVELOPE MACHINE OPERATOR: Roseline Reyna ANESTHESIA TYPE: General LMA/ETT and Spinal Refer to Anesthesia Record ESTIMATED BLOOD LOSS: 400 PATHOLOGY: other (Uterus and left fallopian tube) COMPLICATIONS: None Patient was transported to: PACU Patient's condition: stable Indications: 45yo female with a history of abnormal uterine bleeding and pain with intercourse who declined LARC and requested definitive therapy in the form of a hysterectomy. Findings: The anterior lower uterine segment was densely adherent to the abdominal wall where the bladder would normally be visualized. There was a thick band of adhesions obliterating the anterior cul-de-sac and fixing the uterus perpendicular to the anterior abdominal wall. The R adnexa was surgically absent. The L adnexa was attached to the L lateral margins of the uterine and abdominal wall adhesions. The posterior cul-de-sac was not obscured. Nl upper abdomen. Procedure Description: Patient was taken to the operating room where she was placed in the sitting position and spinal anesthesia was administered. She received 2 g of Ancef prior to skin incision. She was then placed in the dorsal supine position and general endotracheal anesthesia was administered without difficulty. She was then placed in the dorsal lithotomy position in yellowfin stirrups with SCDs in place. After being prepped and draped in the usual sterile fashion a surgical timeout was performed. Garcia catheter was placed to gravity drainage. A bivalve speculum was placed in the vagina the anterior lip of the cervix was grasped with a single-tooth tenaculum. A Cassie uterine manipulator was successfully inserted into the uterine cavity, the catheter bulb inflated with 8 cc of normal saline and the device left in place. Attention was then turned to the patient's abdomen. The umbilical fold was infiltrated with quarter percent Marcaine without epinephrine. A scalpel was then used to make a 12mm vertical skin incision in the umbilical fold. Two penetrating towel clips were used to tent up the skin and through the periumbilical incision and a Veres needle was introduced into t he abdomen with carbon dioxide as the distention medium. Intra-abdominal placement was confirmed by a drop in the intra-abdominal pressure. Once a pneumoperitoneum was established a 12 mm Visiport was placed under direct visualization and intra-abdominal placement confirmed by use of the laparoscope. Patient was then placed in Trendelenburg position. At two sites approximately 6 cm diagonally from the umbilical incision the skin was infiltrated with 1cc of 0.25% Marcaine without epinephrine, incised with a scalpel and two 5 mm lower ports were placed under direct visualization. After careful inspection of the pelvis a LigaSure electrocautery device was used to clamp, cauterize and transect the left fallopian tube remnant from its attachment to the surface of the left ovary. It was then delivered through the 12mm umbilical port. Left ovarian ligament was not clearly delineated from the dense adhesions inv olving the surface of the ovary and the thick adhesions obliterating the cul-de-sac. A Ligasure device was used to dissect the ovary from the lower uterine segment. The left round ligament and broad ligament were then clamped, cauterized and transected to the lower uterine segment. The Ligasure device was used to incise the adhesions in proximity to the serosal surface of the uterus. There was no discernable tissue plain and it was clear where the bladder was. 240cc of s terile formula was used to retrofill the bladder. There was no evidence of leakage of formula as the dissection of the adhesions progressed. On the contralateral side the right round, and right broad ligaments were sequentially clamped, cauterized and transected using the Ligasure device. The dissection of the adhesions on the right side of the lower uterine segment was peformed with the Ligasure device. Once some semblance of normal anatomy had been restored and the lower uterine segment was no longer perpendicular to abdominal wall the decision was made to proceed with the vaginal portion of the case. Laparoscopic instruments were removed from the ports , the pneumoperitoneum was reduced, and the was abdomen covered with a sterile drape. A weighted vaginal speculum was placed in the vagina and the anterior and posterior lips of the cervix were grasped with New clamps. A solution of 1% lidocaine with dilute epinephrine was used to infiltrate the body of the cervix in a circumferential fashion followed by a circumferential incision of the cervical epithelium with Bovie electrocautery. The vesicouterine fascia was dissected with sharp and blunt technique. The posterior cul-de-sac was entered sharply and through the this incision a long billed weighted speculum was placed. The left and right uterosacral ligament complexes were identified clamped, transected and suture- ligated and the suture held long. This allowed sufficient mobilization of the vesicouterine fascia that the anterior cul-de-sac was entered using blunt and sharp dissection. Through this incision a curved right angled retractor was inserted and used to retract the bladder away from the operative field. The remaining right and left broad ligament attatchments were sequentially clamped, cauterized, and transected and the specimen was passed off of the operative field. All of the pedicle sites were inspected and were hemostatic. The vaginal cuff was reapproximated in a vertical fashion with interrupted sutures of 0 Vicryl. Instruments removed from the vagina and attention was again turned to the abdomen where a pneumo-peritoneum was reestablished and the pelvis inspected using the laparoscope. The vaginal cuff was intact and well approximated. Two sites of oozing at the right lateral vaginal cuff margins were clipped with endoclips with satisfactory hemostasis, tested at 5mmHg and at 15mmHg. Final inspection of all pelvic pedicels showed them to be hemostatic. The instruments were removed from the port sites under direct visualization, the pneumo-peritoneum reduced, and the ports removed. The fascia of the periumbilical skin incision was closed with interrupted suture of 0 Vicryl. The skin of all port site incisions were reapproximated with a subcuticular closure of 4-0 Monocryl and and covered with skin glue. A cystoscopy was performed with both ureteral jets patent with a brisk reflux of urine from each. The bladder was inspected and no evidence of sutures were p resent. Garcia catheter was reinserted to gravity drainage and the patient was placed in the dorsal supine position, awakened, extubated, and transported recovery area in stable condition. All sponge lap needle counts correct x2.
--- NOTE | 2021-03-24 15:00 | W.ANESPOSTOP ---
Postoperative Evaluation Date, Time and Location Date Performed: 03/24/21 Time Performed: 15:00 Patient Location: PACU Vital Signs Most Recent Imported Vital Signs: Most Recent Vital Signs Temp Pulse Resp BP Pulse Ox 36.5 C 53 L 18 89/53 L 95 03/24/21 14:51 03/24/21 14:51 03/24/21 14:51 03/24/21 14:51 03/24/21 14:51 Pain Score Most Recent Pain Score: Most Recent Pain Score Pain Level 0 03/24/21 14:51 Assessment Mental Status: Awake (Alert & Oriented to Patient Baseline) Airway and Respiratory Function: Patent airway with normal (patient baseline) respiratory exam Cardiovascular Function: Hemodynamically Stable Hydration Status: Adequately Hydrated Nausea & Vomiting: No Nausea or Vomiting Pain: Pt. Denies Any Pain Peripheral Nerve Block: Patient did not receive a nerve block
[2021-03-24] MEDS: Ketorolac 30 MG/ML VIAL IVP (19:48)
[2021-03-24] MEDS: Pregabalin 50 MG CAP PO (19:50)
[2021-03-24] MEDS: Topiramate 100 MG TAB PO (20:11)
[2021-03-24] MEDS: Topiramate 100 MG TAB (20:20)
[2021-03-24] MEDS: ALPRAZolam 0.25 MG TAB 1 MG PO (20:58)
--- NOTE | 2021-03-24 21:10 | NUR.NOTE ---
Dr Hubbard came in to see Pt at 2044. Discussed confusion with meds. asked pt to have her bring in the medications our pharmacy does not carry. Pt contacting :
--- NOTE | 2021-03-24 21:12 | NUR.NOTE ---
Nursing Note: 2030 pt ambulated to bathroom steadily with standby assist only, no complaints of dizziness.
--- NOTE | 2021-03-24 21:35 | NUR.NOTE ---
Nursing Note:Pt's brought the meds from home that we did not have in pharmacy here. Documented as such. Pt reminded to call before ambulating.
[2021-03-25 00:15] VITALS: BP 96/59; PULSE 64; RESP 16; TEMP 36.6; O2SAT 98
[2021-03-25] MEDS: Ketorolac 30 MG/ML VIAL IVP ×2 (01:46→07:52)
[2021-03-25 06:36] LABS: HCT 40.2 % (36.0-46.0); HGB 13.3 g/dL (11.2-15.7); MCH 33.7 pg (27.0-33.0); MCHC 33.1 % (32.0-36.0); MCV 101.8 fL (80-95); Platelet Count 318 10^3/uL (130-400); RBC 3.95 10^6/uL (3.93-5.22); RDW 14.5 % (11.7-14.6); RDW-SD 54.6 fL; WBC 17.11 10^3/uL (4.4-10.8)
[2021-03-25 07:15] VITALS: BP 99/61; PULSE 51; RESP 16; TEMP 36.8; O2SAT 97
--- NOTE | 2021-03-25 07:49 | DSE_ITS ---
Date of service: 03/25/21 Time of Service: 07:49 DS: Diagnosis Discharge Diagnosis (1) Pelvic pain: Status: Acute (2) History of abnormal uterine bleeding: Status: Acute (3) History of LAVH: Status: Acute Discharge Plan Disposition Patient Disposition: HOME Condition: Fair Discharge Details Admit Date/Time: 03/24/21 15:05 Admit Provider: Katie Vega Attending Provider: Katie Vega Primary Care Provider: Odalys Escobar Hospital Course Hospital Course: Pt admitted day of surgery and underwent laparoscopic assisted vaginal hysterectomy with extensive lysis of adhesions and L salpingectomy. Post op course was uncomplicated and she was discharged to home on POD1 with instructions to not drive for 2 weeks, limiting lifting to 10lbs and to follow up at [facility] in 2 weeks. Discharge medications will be Ibuprofen and Acetaminophen. She did not feel that needed narcotics for discomfort. Home Meds and New Rx's Prescriptions: No Action pregabalin [Lyrica] 50 mg capsule 50 mg PO BID RF: 0 Viibryd 40 mg tablet 40 mg PO HS RF: 0 topiramate 100 mg tablet 100 mg PO QHS RF: 0 Vraylar 1.5 mg capsule 1.5 mg PO Q OTHER DAY RF: 0 pantoprazole [Protonix] 40 mg tablet,delayed release (DR/EC) 40 mg PO DAILY RF: 0 dicyclomine 10 mg capsule 10 mg PO TID PRNRF: 0 propranolol 10 mg tablet 10 mg PO BID PRN (Reason: Hyperadrenergic symptoms) RF: 0 alprazolam 1 mg tablet 1 mg PO HS PRNRF: 0 alprazolam 0.5 mg tablet 0.5 mg PO Q4H PRNRF: 0 Lactobacillus acidophilus [Acidophilus] Capsule 1,000 mmu cells PO DAILY RF: 0 Discharge Instructions Stand Alone Forms: DSU Post Gynecology Surgery Activity:: Activity as Tolerated Equipment/Supplies:: No Equipment Needed Diet:: As Tolerated Discharge Orders Discharge Orders: Discharge Order (Routine); Ordered 03/25/21 Ordered By: Katie Vega DS: Summary Time Spent with Patient providing and/or coordinating discharge services: Less than 30 minutes Status at Discharge Functional status at discharge: independent ambulation Overall status at discharge: patient is progressing back to baseline Mental Status: mental status grossly normal Speech and Movement: speech and movement normal Mood: congruent mood Affect: normal affect Exam Narrative Exam Narrative: Did not sleep well overnight. Pain minimal but awake a lot. OOB with assist. Voiding successfully after st discontinued. Paul regular diet. Resp Effort & Inspection: normal respiratory effort Auscultation: clear to auscultation bilaterally Cardio Rate: regular rate Rhythm: regular rhythm GI Inspection: abdominal wall ecchymosis (at base of vertical skin incision) and incision (clean, dry and intact. skin glue in place) Palpation: soft, no hepatosplenomegaly, no masses and nontender Auscultation: normal bowel sounds Rectal Exam - female: deferred General: deferred Skin General skin exam: no rashes or lesions noted Extrem General: normal to inspection Psych Appearance: grossly normal Mental Status: mental status grossly normal Speech and Movement: speech and movement normal Mood: congruent mood Affect: normal affect Attitude: cooperative Thought Process: normal Thought Content: normal Insight: insight good DS: Data Vitals/I&O Vitals and I&O: Vital Signs Temperature 97.9 F 03/25/21 00:15 Temperature Source Oral 03/24/21 20:00 Pulse 64 03/25/21 00:15 Pulse Rhythm Regular 03/25/21 07:34 Respiratory Rate 16 03/25/21 00:15 Respiratory Effort Non-Labored 03/25/21 07:34 Respiratory Depth Normal 03/25/21 07:34 Respiratory Pattern Normal 03/25/21 07:34 Blood Pressure 96/59 L 03/25/21 00:15 Pulse Oximetry 98 03/25/21 00:15 Respiratory End-tidal CO2 40 03/24/21 15:04 Oxygen Delivery Method Room Air 03/25/21 00:15 Oxygen Flow Rate 0 03/25/21 00:15 Pain Level 0 03/25/21 00:15 Intake & Output 03/24/21 03/24/21 03/25/21 11:59 23:59 11:59 Intake Total 50 / 1390 1340 / 1390 Output Total 940 / 940 475 / 475 Balance 50 / 450 400 / 450 -475 / -475 Weight 135 lb 2.294 oz Intake: IV 50 / 1150 1100 / 1150 Oral 240 / 240 Output: Urine 540 / 540 475 / 475 Estimated Blood Loss 400 / 400 Other: Urine Color Yellow Green Brown Urine Appearance Clear Sediment Hematuria Urine Odor None None Comment light blueish green color. St removed at this time. Pt tolerated well. Pt instructed to call before ambulating Emesis Description None Voiding Methods Indwelling Catheter Toilet Data Completed and Pending Labs on day of discharge: Labs from last 24 hours 03/25/21 06:17 WBC 17.11 H RBC 3.95 Hgb 13.3 D Hct 40.2 MCV 101.8 H MCH 33.7 H MCHC 33.1 RDW 14.5 Plt Count 318 MPV 9.0 PFSH Medical History Abdominal cramping Anxiety Bipolar disorder Bloating Borderline personality disorder Chronic diarrhea Colorectal polyps 08/24/20 [facility] - Colonoscopy Depression Diverticulosis Esophagitis Fibromyalgia Gallstones Gastritis GERD (gastroesophageal reflux disease) (05/25/16) History of abnormal uterine bleeding 02/2021. EMBx. Insomnia (11/16/17) Migraine Nephrolithiasis Ovarian cyst Pelvic pain Preop examination RLS (restless legs syndrome) Seasonal affective disorder Tobacco use Tobacco use disorder Vitamin D deficiency (12/29/16) Surgical History (Updated 03/25/21 @ 07:54 by Katie eVga MD) section x 2 Cholecystectomy History of [facility] 03/24/21. with L salpingectomy. L ovary remains. Hx of colonoscopy Hx of esophagogastroduodenoscopy Oophrectomy, Right OVARIAN CYST Family History Mother COPD (chronic obstructive pulmonary disease) Depression Heart disease Stroke Father Heart disease Hyperlipidemia Neoplasm Throat or esophageal? Asthma Grandfather Heart disease Hyperlipidemia Grandfather Heart disease Hyperlipidemia Grandmother Diabetes Essential hypertension Depression Heart disease Hyperlipidemia Grandmother Diabetes Personal history of malignant neoplasm Heart disease Stroke Brother Substance abuse Asthma Daughter Asthma Daughter Personal history of malignant neoplasm Ovarian CA Asthma Maternal Aunt , Ovarian CA at age 55. No problems noted. Social History (Updated 03/02/21 @ 10:06 by Katie Vega MD) Smoking/Tobacco Use Status: Current every day Tobacco Type: cigarettes Smoking packs per day: 1 Smoking cigarettes per day: 20.0 Years smoked: 25 Smoking pack- years: 25.00 Smoking risk assessment performed?: Yes Alcohol Intake: current Alcohol Intake frequency: a few times a week Alcohol type: hard liquor Drug use: Daily Substance use type: marijuana Details: alcohol: t-1, one drink. 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 2 children, 22yo, 20yo. Female Reproductive History Menstrual control method: permanent sterilization ( vasectomy) History History 2 Para 2 Hx # Term Pregnancies 2 Multiple births Hx # Pregnancies Ectopic pregnancies AB induced Hx Number of Living Children 2 AB spontaneous
[2021-03-25] MEDS: Normal Saline Flush 10 ML SYR IV (07:53)
== END 2021-03-25 10:32 | disposition home or self-care (01) ==
LOC: SUR 14:48 → OBS 03-25 08:00
PROVIDERS: Admitting Provider Obstetrics & Gynecology Gynecology; PCP Nurse Practitioner Family; Visit Provider Obstetrics & Gynecology Gynecology
PROC: 0UT9FZZ Resection of Uterus, Via Natural or Artificial Opening With Percutaneous Endoscopic Assistance (ICD-10-PCS; CPT 58552; principal; 2021-03-24 11:15)
DX: N93.8 Other specified abnormal uterine and vaginal bleeding (principal); R10.2 Pelvic and perineal pain; N94.10 Unspecified dyspareunia; K52.9 Noninfective gastroenteritis and colitis, unspecified; F29 Unspecified psychosis not due to a substance or known physiological condition; K57.90 Diverticulosis of intestine, part unspecified, without perforation or abscess without bleeding; M79.7 Fibromyalgia; K29.70 Gastritis, unspecified, without bleeding; K21.9 Gastro-esophageal reflux disease without esophagitis; G47.00 Insomnia, unspecified; G43.909 Migraine, unspecified, not intractable, without status migrainosus; G25.81 Restless legs syndrome
CPT/HCPCS: 58552; 52000; 85027; 88307; J0360; J0690; J1100; J1885; J2001; J2250; J2405; J2704; J3010

== ENCOUNTER 2021-04-22 16:06 | Outpatient (REF) | payer OTHER, SELFPAY ==
[2021-04-22 19:21] LABS: TSH (W/Ref FT4) 0.29 uIU/mL (0.36-3.74)
[2021-04-22 19:38] LABS: FREE T4 1.11 ng/dL (0.76-1.46)
== END 2021-04-22 16:07 | disposition home or self-care (01) ==
LOC: NCHCN 16:06
PROVIDERS: PCP Nurse Practitioner Family; Visit Provider Nurse Practitioner Family
DX: E07.9 Disorder of thyroid, unspecified (principal)
CPT/HCPCS: 84439; 84443

== ENCOUNTER 2021-08-27 18:23 | Outpatient (REF) | payer OTHER, SELFPAY ==
[2021-08-29 14:05] LABS: COVID-19 RT-PCR UVMMC Result Negative (Negative)
== END 2021-08-27 18:24 | disposition home or self-care (01) ==
LOC: LBN 18:23
PROVIDERS: PCP Nurse Practitioner Family; Visit Provider Physician Assistant Medical
DX: Z20.822 Contact with and (suspected) exposure to COVID-19 (principal); J06.9 Acute upper respiratory infection, unspecified
CPT/HCPCS: U0003

== ENCOUNTER 2021-08-27 19:02 | Outpatient (CLI) | payer OTHER, SELFPAY ==
--- NOTE | 2021-08-27 | DI.RAD_ITS ---
Exam(s) XR CHEST 2V PA LATERAL EXAM: XR CHEST 2V PA LATERAL CLINICAL HISTORY: COUGH TECHNIQUE: 2D digital imaging was performed of the chest. Two images were obtained. PA and lateral views were obtained. COMPARISON: No exams were available for comparison FINDINGS: MEDIASTINUM: Normal. HEART: Normal. PULMONARY VASCULATURE: Normal. LUNGS: Clear. There is hyperinflation of the lungs suggesting underlying COPD. PLEURAL SPACE: No pleural effusion or pneumothorax. BONE:Within normal limits for the patient's age. OTHER FINDINGS:Normal. IMPRESSION: No acute pulmonary findings. DATA REPOSITORY: RADIATION DOSE DELIVERED:
--- NOTE | 2021-08-27 20:08 | DI.VRAD_ITS ---
PROCEDURE INFORMATION: Exam: XR Chest Exam date and time: 08/27/2021 7:07 PM Age: 45 years old Clinical indication: Other: Cough TECHNIQUE: Imaging protocol: XR of the chest. Views: 2 views. COMPARISON: CR CHEST 2 VIEWS PA,LAT 06/29/2017 9:44 AM FINDINGS: Lungs: No mass. No consolidation. Hyperinflation suggesting COPD. Pleural spaces: Unremarkable. No pleural effusion. No pneumothorax. Heart/Mediastinum: Unremarkable cardiomediastinal silhouette. No cardiomegaly. Bones/joints: Unremarkable. IMPRESSION: No evidence for acute cardiopulmonary disease. Dictated and Authenticated by: Raulito Dukes MD. Ordering:SOSA Rios MD
== END 2021-08-27 19:22 ==
PROVIDERS: PCP Nurse Practitioner Family; Visit Provider Physician Assistant Medical
DX: R05.8 Other specified cough (principal); J44.9 Chronic obstructive pulmonary disease, unspecified
CPT/HCPCS: 71046

== ENCOUNTER 2021-09-01 19:13 | Outpatient (REF) | payer OTHER, SELFPAY ==
[2021-09-03 14:50] LABS: COVID-19 RT-PCR UVMMC Result Negative (Negative)
== END 2021-09-01 19:14 | disposition home or self-care (01) ==
LOC: LBN 19:13
PROVIDERS: PCP Nurse Practitioner Family; Visit Provider Nurse Practitioner Family
DX: Z20.822 Contact with and (suspected) exposure to COVID-19 (principal)
CPT/HCPCS: U0003

== ENCOUNTER 2021-10-22 00:36 | Outpatient (CLI) | payer OTHER, SELFPAY ==
--- NOTE | 2021-10-22 14:30 | DI.MRI_ITS ---
Exam(s) MR BRAIN WO/W EXAM: MR BRAIN WO/W CLINICAL HISTORY: DIPLOPIA H53.2 BILAT LEG PARESTHESIA R20.2, INTERMITTENT NUMBNESS LEGS TECHNIQUE: Multiplanar multisequence MRI of the brain was performed. CONTRAST MATERIAL: IV Contrast: 16 ML of Dotarem contrast administered. COMPARISON: No exams were available for comparison FINDINGS: VENTRICLES AND EXTRA AXIAL SPACES: Normal in size and morphology for the patient's age. HEMORRHAGE: None. CEREBRAL PARENCHYMA: No focus of restricted diffusion to suggest acute infarct. No space-occupying le shannon identified. There are several tiny (less than 3 mm) foci of hyperintense signal on the FLAIR and T2 weighted images within the white matter. MIDLINE SHIFT: None. BRAINSTEM/CEREBELLUM: Normal. CALVARIUM: Normal. ENHANCEMENT: No suspicious enhancement identified. VISUALIZED PARANASAL SINUSES/MASTOIDS: Clear. COCOPAH OF VYAS: There is a 0.8 x 0.7 cm flow void in the suprasellar region inferior to the optic c hiasm it appears to arise from the supraclinoid segment of the right internal carotid artery it proje cts medially adjacent to the infundibulum. There is enhancement following contrast administration. The finding is most suspicious for a aneurysm. PITUITARY GLAND: Unremarkable. OTHER FINDINGS: IMPRESSION: 1. 0.8 x 0.7 cm flow void in the suprasellar region which appears to arise from the supraclinoid segm ent of the right internal carotid artery. Primary diagnostic concern is for an aneurysm. There is e nhancement seen on the postcontrast images. Meningioma or other enhancing lesion is considered less likely. MR/CT angiography and/or catheter angiography is recommended for further evaluation. 2. Several tiny foci of hyperintense signal on the FLAIR and T2 weighted images within the white lucius er. Differential considerations include deep white matter injury, migraine related deep white matter disease, demyelinating process, infectious/inflammatory conditions or vasculitis. DATA REPOSITORY:
[2021-10-22] MEDS: Normal Saline Flush 10 ML SYR IVP (14:59)
[2021-10-22] MEDS: Gadoterate meglumine 20 ML VIAL 16 ML IVP (15:00)
== END 2021-10-22 00:56 ==
LOC: DI 00:37
PROVIDERS: PCP Nurse Practitioner Family; Visit Provider Family Medicine
DX: H53.2 Diplopia (principal); R20.2 Paresthesia of skin; R90.89 Other abnormal findings on diagnostic imaging of central nervous system
CPT/HCPCS: 70553

== ENCOUNTER 2021-11-26 15:18 | Outpatient (REF) | payer OTHER, SELFPAY ==
[2021-11-26 16:30] LABS: TSH (W/Ref FT4) 0.06 uIU/mL (0.36-3.74)
[2021-11-26 16:51] LABS: FREE T4 0.98 ng/dL (0.76-1.46)
[2021-11-27 12:19] LABS: HIV-1/2 Ag & Ab Screen Negative (Negative)
[2021-11-29 11:02] LABS: Hepatitis C Ab w Rflx HCV PCR Negative (Negative)
== END 2021-11-26 15:19 | disposition home or self-care (01) ==
LOC: NCHCN 15:18
PROVIDERS: PCP Nurse Practitioner Family; Visit Provider Nurse Practitioner Family
DX: E07.9 Disorder of thyroid, unspecified (principal); Z00.00 Encounter for general adult medical examination without abnormal findings; Z11.4 Encounter for screening for human immunodeficiency virus [HIV]; Z11.59 Encounter for screening for other viral diseases
CPT/HCPCS: 86803; 87389; 84439; 84443

== ENCOUNTER 2021-12-14 01:47 | Outpatient (CLI) | payer OTHER, SELFPAY ==
[2021-12-14] MEDS: Inhaler, Assist Device 1 EACH MC (16:18)
[2021-12-14] MEDS: Albuterol HFA 18 GM 200 PUFF INH IH (16:18)
--- NOTE | 2021-12-15 11:09 | W.PFT ---
Date of service: 12/14/21 Time of Service: 15:10 Pulmonary Function Test Result Requesting Provider Javed Ramirez Indications: Dyspnea Interpretation Spirometry: There is no airflow obstruction. There is no significant bronchodilator response. Lung Volumes: Lung volumes are normal. Diffusion Capacity: Diffusion is decreased. Airway Pressure: Airways resistance is normal. Impression Isolated diffusion defect. In the correct clinical setting this could be due to pulmonary vascular disease. If clinically appropriate an echocardiogram could be appropriate. Clinical Correlation therefore is recommended.
== END 2021-12-14 01:48 | disposition home or self-care (01) ==
LOC: RT 01:47
PROVIDERS: PCP Nurse Practitioner Family; Visit Provider Nurse Practitioner Family
DX: F17.210 Nicotine dependence, cigarettes, uncomplicated (principal); R06.00 Dyspnea, unspecified; R94.2 Abnormal results of pulmonary function studies
CPT/HCPCS: 94060; 94726; 94729

== ENCOUNTER 2022-01-31 11:19 | Outpatient (REF) | payer OTHER, SELFPAY ==
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
--- OUTSIDE RECORDS SUMMARY | 2022-01-31 11:22 | XMS_ITS | Encounter Summary ---
:1975 Author Care Team Providers Name Role Phone Odalys Escobar TOSHIA Primary Care Provider [phone] [facility] Medical Records OTHER [phone] Reason for Visit Telehealth - Video/Zoom Assessment and Plan 1. Snoring Franchesca has snoring, witnessed apneas, excessive daytime sleepiness (ESS 15), morning headaches, night sweats, neurocognitive decline, and a Blauvelt score of 2/3 indicating a high likelihood of TRENA. I discussed the pathophysiology of obstructive sleep apnea and the potential consequences of untreated TRENA including how it relates to her symptoms and comorbidities. Her mother has TRENA and uses a BiPAP so she is familiar with TRENA. I ord ered a polysomnogram and discussed what will take place the night of the sleep study. I will see her back to review the results as soon as they are available. She is not currently driving. I provided greater than 40 minutes in e care of this patient, more than half the time was spent in [id number] counseling. ? polysomnography, diagnosti c (PROC) 2. Psychophysiologic insomnia Franchesca reports that 2-3 nights a week she wakes up and can't get back to sleep for an hour up to the rest of the night. I suspect her heavy psych history plays a role in her insomnia. I would no t add any additional medications for sleep at this time given. Will get PSG for furthe r evaluation as an untreated TRENA may be contributing to her insomnia. 3. Restless legs She reports classic symptoms t hat occur only occasionally at this time but were frequent in the past. Her s ays she has nightly movements of legs. She was on ropinirole in the past and this h elped but she was able to stop that when she started olanzapine which helps her get t o sleep quickly. She may have PLMS contributing to her sleepiness and insom carol. Will get PSG for further evaluation. 4. Cataplexy She describes symptoms that ma y be consistent with cataplexy and hypnagogic hallucinations. Will start with a PSG gi chano her risk for TRENA and PLMD. May need to proceed with a MSLT in the future. Discussion Note: None recorded.Patient educational handouts: No information available. 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 ? ? Referral None recorded. ? ? Procedures ? Polysomnography, 01/13/2022 Diagnostic (PROC) Surgeries None recorded. ? ? Imaging None recorded. ? ? Medications Name Start Date ? ? alprazolam 0.5 mg tablet ? Take 1 tablet 3 times a day by oral route. lithium carbonate 300 mg tablet ? Take 1 tablet every day by oral route at bedtime. methylphenidate 10 mg tablet ? Take 1 tablet twice a day by oral route. olanzapine 10 mg tablet ? Take 1 tablet every day by oral route at bedtime. pantoprazole 40 mg tablet,delayed release ? Take 1 tablet twice a day by oral route. topiramate 100 mg tablet ? Take 1 tablet every day by oral route. Viibryd 40 mg tablet ? Take 1 tablet every day by oral route. Vraylar 3 mg capsule ? Take 1 capsule 3 times a week by oral route. Xanax XR 1 mg tablet,extended release ? Take 1 tablet every day by oral route. Medications Administered None recorded. Vitals Height Weight BMI 5 ft 140 lbs 27.3 kg/m2 Results Lab Results None recorded. Allergies Code Code System Name Reaction Severity Onset Sulfa ? ? ? (Sulfonamide Antibiotics) Problems Name Status Onset Date Source ? [...] Concept Active ? History Procedures None recorded. Vaccine List Vaccine Type Td (adult), adsorbed 06/18/2015 Tdap 06/18/2015 Social History Tobacco Smoking Status Heavy Tobacco Smoker (1/2 pack per day) What is your level of alcohol Occasional Notes: 1 drink every consumption? night Live alone or with others? with others Do you or have you ever used N any other forms of tobacco or nicotine? What is your level of caffeine Occasional Notes: 1 coffee a day consumption? Are you currently employed? N Do you use any illicit or N recreational drugs? Functional Status Unknown. Past Encounters 01/13/2022 Snoring; Psychophysiologic Insomnia; Res tless Legs; Cataplexy Amber Forrest NP: [address] [place] [phone], Ph. History of Present Illness Note: <div>Franchesca Dickson has a Zoom consultation at the request of Javed Ramirez NP for evaluation of insomnia. She has given consent to have a telehealth visit. Patient is at home, provider is in the office.</div><div>
</div><div>Franchesca has a medical history to include anxiety, depression, Bipolar, PTSD, OCD, diplopia, esophagitis, fibromyalgia, hyperthyroidism, intracranial aneurysm, migraine, palpitations, snoring and vitamin D deficiency.</div><div>She is taking mehylphenidate 10 mg BID and Xanax XR 1mg QAM, and alprazolam 0.5 mg TID PRN.</div><div>Labs 11/26/21 TSH 0.06, Free T4 wnl.</div><div>
</div><div>
</div><div>{{Patient Franchesca#}} feels {{his her*}} biggest problem with sleep is {{snoring waking up a lot not feeling rested snoring and not bretahing#}}. {{He She*}} typically goes to bed at {{9*}}pm. It takes {{5*}} minutes to fall asleep. {{He She*}} wakes up {{1 2 3 0-1#}} times a night from {{unknown reason* pain bathroom}} and it takes {{ up to an hour#}} minutes to get back to sleep. {{He She*}} gets up at {{5 6 7 8 3-6#}}am to start {{his her*}} day. {{He She*}} does not take naps. {{He She*}} has no disturbances to {{his her*}} sleep. {{He She*}} has never had a sleep study. {{He She*}} sleeps {{alone with someone*}} in a bed.</div><div>
</div><div>SLEEP QUALITY: Feels quality of sleep most nights is {{good okay* poor}}.</div><div>
</div><div>
</div><div>DAYTIME ALERTNESS: Reports level of alertness most days to be {{alert low energy sleepy very sleepy*}}.</div><div>
</div><div>
</div><div>PSYCH SYMPTOMS: {{Has* Has not}} noted worsening memory {{and* or}} concentration. {{Does have* Denies current problems with}} irritability, depression, {{and* or}} anxiety. {{Has* Has not}} noted difficulty with calculations.</div ><div>
</div><div>INSOMNIA SYMPTOMS: {{Does have* Does not have}} an active mind at night when trying to sleep. {{Does have* Does not have}} stressful thoughts interferingwith sleep. {{Does Does not*}} watch the clock throughout the night. {{Does Does not*}} worry about getting a good night's sleep. </div><div>
</div><div>BREATHING SYMPTOMS: {{Does have* Does not have}} snoring. {{Does have* Does not have}} witnessed apnea. {{Does have Does not have*}} nocturnal choking/gasping/dyspnea.{{Does have* Does not have}} mouth breathing. {{Does have* Does not have}} nasal congestion at night.</div><div>
</div><div>
</div><div>MOVEMENT SYMPTOMS: {{Does have* Does not have}} tossing & turning. {{Does have* Does not have}} messy sheets in the morning. {{Does have* Does not have}} leg and arm jerks, kicks and twitches in sleep every night. {{Does* Does not}} have an aching,restless or crawling feeling in legs at night. {{Does* Does not}} have a hard time keeping legs still when trying to sleep. {{Does Does not Does rarely#}} have muscle cramps or Tano horses" in {{legs* arms feet}}. {{Does Does not*}} have sleep walking or talking.</div><div>
</div><div>
</div><div>DREAM SYMPTOMS: {{Does have Does not have*}} nightmares often that affect ability to sleep. {{Does have Does not have*}} dreams ofsuffocating/drowning. {{Does Does not*}} dream shortly after falling asleep. {{Does Does not*}} see dreams in the room even when awake.{{Does* Does not}} see or hear things in the room when falling asleep that aren't really there. She describes seeing shadows or hearing music or voices. This is brief as she is waking up or drifting to sleep. This happens rarely since she has been taking olanzapine. {{Does* Does not}} see things in the road when driving that aren'treally there. {{Has Has not*}} had someone see then act our their dreams. {{Has Has not*}} accidentally injured themselves while sleeping due to own movements/behaviors.</div><div>
</div><div>CATAPLEXY SYMPTOMS: {{Does have Does not have*}} feel limp, lose strength, orfall asleep when very angry, surprised or laughing. {{Does have* Does not have}} leg weakness when upset. This has been going on for a long time and happens at least 1-2 a week. Shehas fallen to floor in the past. {{Has* Has not}} had episodes of being unable to move when waking up which is often frightening. This has only happened a couple of times in her life when she had bad insomnia.</div><div>
</div><div>DRIVING: {{Has* Has not}} nearly fallen asleep driving, this occurred randomly. She has not been driving since her mental breakdown in 08/2021. {{Has had Has not had*}} an accident related to drowsy driving or not paying attention. {{Does* Does not}} forget the last few miles or minutes while driving. {{Has* Has not}} driven out of [place] and crossed center line or gone onto shoulder when driving. {{Has* Has not}} had a passenger tell them they look sleepy when driving.</div><div>
</div><div>ESS today </div><div>Blauvelt Questionnaire Score 2/3</div>Review of Systems: ROS as noted in the HPI Review of Systems ? Notes: <div>generally feeling ill, wakes with dry mouth, teeth grinding, missing many teeth, night sweats, trouble swallowing, dyspnea, jaw pain, palpitations, heartburn (was waking with t his prior to pantoprazole), constipation, menopause, frequent urinatio n, headaches (wakes with these 1-2/week), lightheadedness, muscle weak ness everywhere, joint pain everywhere", and claustrophobia. </div> Physical Exam ? Notes: <div>N/A</div>
[2022-01-31 14:09] LABS: C Diff PCR Negative (Negative)
[2022-02-01 10:50] LABS: Campylobacter PCR Negative (Negative); Salmonella PCR Negative (Negative); Shiga Toxin PCR Negative (Negative); Shigella/Enteroinvasive Ecoli Negative (Negative)
[2022-02-02 20:21] LABS: Calprotectin <50.0 mcg/g
[2022-02-03 15:55] LABS: Pancreatic Elastase, F 431 mcg/g
== END 2022-01-31 11:20 | disposition home or self-care (01) ==
LOC: LBN 11:19
PROVIDERS: PCP Nurse Practitioner Family; Visit Provider Nurse Practitioner Family
DX: K58.0 Irritable bowel syndrome with diarrhea; R14.0 Abdominal distension (gaseous); R63.0 Anorexia; R68.81 Early satiety; R63.4 Abnormal weight loss; F34.1 Dysthymic disorder
CPT/HCPCS: 87329; 87493; 87505; 82656; 83993

== ENCOUNTER 2022-03-11 19:04 | Outpatient (REF) | payer OTHER, SELFPAY ==
[2022-03-12 13:50] LABS: COVID-19 RT-PCR UVMMC Result Negative (Negative)
== END 2022-03-11 19:05 | disposition home or self-care (01) ==
LOC: NCHCN 19:04
PROVIDERS: PCP Nurse Practitioner Family; Visit Provider Nurse Practitioner Family
DX: Z20.822 Contact with and (suspected) exposure to COVID-19 (principal); Z01.818 Encounter for other preprocedural examination
CPT/HCPCS: U0003

== ENCOUNTER 2022-04-01 18:35 | Outpatient (REF) | payer OTHER, SELFPAY ==
[2022-04-03 01:56] LABS: COVID-19 RT-PCR UVMMC Result Negative (Negative)
== END 2022-04-01 18:36 | disposition home or self-care (01) ==
LOC: NCHCN 18:35
PROVIDERS: PCP Nurse Practitioner Family; Visit Provider Nurse Practitioner Family
DX: Z20.822 Contact with and (suspected) exposure to COVID-19 (principal); Z01.818 Encounter for other preprocedural examination
CPT/HCPCS: U0003

== ENCOUNTER 2022-04-29 11:57 | Emergency (ER) | payer OTHER, SELFPAY ==
--- NOTE | 2022-04-29 12:00 | DI.CT_ITS ---
Exam(s) CT HEAD WO EXAM: CT HEAD WO CLINICAL HISTORY: R headache, DERRICK stent. TECHNIQUE: Imaging Protocol: Axial computed tomography images with coronal and sagittal reformatted images were created and reviewed COMPARISON: No exams were available for comparison FINDINGS: The ventricular system is normal in appearance. No evidence of acute intracranial hemorrhage, mass effect, or midline shift. The orbital structures are unremarkable. The temporal bone structures appear intact. Calvarium: Normal. Visualized Paranasal sinuses/Mastoids: Clear. IMPRESSION: Normal cranial CT. RADIATION DOSE DELIVERED: 674.95mGy.cm Total DLP 674.95mGy.cm Total DLP !Error CTDIvol DATA REPOSITORY: All CT scans at this facility are submitted to the National Radiology Data Registry (NRDR) Dose Index Registry (DIR) with the [employer] ([employer]). RADIATION OPTIMIZATION: All CT scans at this facility use at least one of these dose optimization te chniques: automated exposure control; mA and/or kV adjustment per patient size (includes targeted exa ms where dose is matched to clinical indication); or iterative reconstruction.
[2022-04-29 12:01] VITALS: BP 115/75; PULSE 97; RESP 18; TEMP 36.7; O2SAT 95
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
[2022-04-29 12:32] LABS: Abs Immature Grans 0.03 10^3/uL (0.0-0.06); Absolute Basophil Count 0.02 10^3/uL (0.0-0.2); Absolute Eosinophil Count 0.07 10^3/uL (0.0-0.7); Absolute Lymphocyte Count 2.33 10^3/uL (1.2-3.4); Absolute Neutrophil Count 7.37 10^3/uL (1.2-6.7); Basophils % 0.2; Eosinophils % 0.7; Immature Grans % 0.3; Lymphocytes % 22.1; MCH 31.6 pg (27.0-33.0); MCHC 33.3 % (32.0-36.0); MCV 95 fL (80-95); MPV 8.7 fL (8.0-11.0); Monocytes % 6.7; Platelet Count 368 10^3/uL (130-400); RBC 4.74 10^6/uL (3.93-5.22); RDW 15.2 % (11.7-14.6); RDW-SD 54.2 fL; WBC 10.52 10^3/uL (4.4-10.8)
[2022-04-29] MEDS: Dexamethasone 10 MG/ML VIAL IVP (12:35)
[2022-04-29] MEDS: Ondansetron 4 MG/2 ML VIAL IVP (12:35)
[2022-04-29] MEDS: Normal Saline 1,000 ML 1000 ML IV (12:35)
[2022-04-29] MEDS: ACETAMINOPHEN 1,000 MG/100 ML BTL 400 MG IVPB (12:36)
[2022-04-29 12:48] LABS: PTT Activated 28.1 sec (21.0-27.5); Prothrombin Time 9.9 sec (9.3-11.0)
[2022-04-29 12:51] LABS: ALT 33 U/L (14-59); AST 23 U/L (15-37); Albumin 3.6 g/dL (3.4-5.0); Alkaline Phosphatase 108 U/L (46-116); Anion Gap 10.7 mmol/L (3-11); BUN 14 mg/dL (7-18); Bilirubin, Total 0.3 mg/dL (0.2-1.0); CO2 22.3 mmol/L (21.0-32.0); CREATININE 0.9 mg/dL (0.55-1.02); Calcium 8.7 mg/dL (8.5-10.1); Chloride 109 mmol/L (98-107); Glucose 121 mg/dL (74-106); Potassium 3.8 mmol/L (3.5-5.1); Sodium 142 mmol/L (136-145); Total Protein 7.7 g/dL (6.4-8.2)
[2022-04-29] MEDS: HYDROmorphone 2 MG/ML VIAL 1 MG IVP (13:25)
[2022-04-29 14:58] VITALS: BP 91/55; PULSE 65; RESP 18; O2SAT 94
== END 2022-04-29 15:04 | disposition home or self-care (01) ==
PROVIDERS: Emergency Provider Emergency Medicine; PCP Nurse Practitioner Family
DX: R51.9 Headache, unspecified (principal); Z95.820 Peripheral vascular angioplasty status with implants and grafts
CPT/HCPCS: 36415; 80053; 96361; 96374; 96375; 99284; 70450; 85025; 85610; 85730; J0131; J1100; J2405

== ENCOUNTER 2022-06-23 15:39 | Outpatient (REF) | payer OTHER, SELFPAY ==
[2022-06-23 19:46] LABS: TSH (W/Ref FT4) 0.07 uIU/mL (0.36-3.74)
[2022-06-23 20:08] LABS: Vitamin D 25 Total 20.9 ng/mL (30-100)
[2022-06-23 20:28] LABS: FREE T4 1.09 ng/dL (0.76-1.46)
[2022-06-23 21:30] LABS: Hemoglobin A1C 5.2 % (<5.7)
== END 2022-06-23 15:40 | disposition home or self-care (01) ==
LOC: NCHCN 15:39
PROVIDERS: PCP Nurse Practitioner Family; Visit Provider Nurse Practitioner Family
DX: E55.9 Vitamin D deficiency, unspecified (principal); E05.90 Thyrotoxicosis, unspecified without thyrotoxic crisis or storm; R73.9 Hyperglycemia, unspecified; K58.0 Irritable bowel syndrome with diarrhea
CPT/HCPCS: 82306; 83036; 84439; 84443

== ENCOUNTER 2022-08-29 03:38 | Outpatient (CLI) | payer OTHER, SELFPAY ==
[2022-08-29 16:49] LABS: MCH 31.6 pg (27.0-33.0); MCHC 33.3 % (32.0-36.0); MCV 95 fL (80-95); MPV 9.2 fL (8.0-11.0); Platelet Count 395 10^3/uL (130-400); RBC 4.74 10^6/uL (3.93-5.22); RDW 15.5 % (11.7-14.6); RDW-SD 54.4 fL; WBC 14.89 10^3/uL (4.4-10.8)
[2022-08-29 17:30] LABS: Hemoglobin A1C 5.2 % (<5.7)
[2022-08-29 18:10] LABS: Vitamin D 25 Total 24.8 ng/mL (30-100)
[2022-08-29 18:19] LABS: ALT 17 U/L (14-59); AST 14 U/L (15-37); Albumin 3.5 g/dL (3.4-5.0); Alkaline Phosphatase 108 U/L (46-116); Anion Gap 5.9 mmol/L (3-11); BUN 11 mg/dL (7-18); Bilirubin, Total 0.2 mg/dL (0.2-1.0); CO2 25.1 mmol/L (21.0-32.0); CREATININE 0.9 mg/dL (0.55-1.02); Calcium 8.9 mg/dL (8.5-10.1); Calculated LDL 104 mg/dL (<100); Chloride 107 mmol/L (98-107); Cholesterol 190 mg/dL (<200); Estimated GFR 80.34 (mL/min/1.73m2); Ferritin 16 ng/mL (8-252); Folate 4.4 ng/mL (8.6-20.0); Glucose 120 mg/dL (74-106); HDL Cholesterol 57 mg/dL (40-60); Magnesium 1.8 mg/dL (1.8-2.4); Potassium 3.7 mmol/L (3.5-5.1); Sodium 138 mmol/L (136-145); TSH 0.19 uIU/mL (0.36-3.74); Total Protein 7.6 g/dL (6.4-8.2); Triglyceride 145 mg/dL (<150); Vitamin B12 546 pg/mL (193-986)
[2022-08-29 18:44] LABS: C-Reactive Protein 0.98 mg/dL (0.0-0.3); FREE T4 0.85 ng/dL (0.76-1.46)
[2022-08-30 17:30] LABS: T3,Free 2.9 pg/mL (2.8-5.3)
[2022-08-31 09:43] LABS: Homocysteine 20.2 umol/L (5.0-13.9)
[2022-08-31 15:44] LABS: Copper, Serum 154 mcg/dL (77-206)
[2022-08-31 15:49] LABS: Zinc, S 69 mcg/dL (60-106)
== END 2022-08-29 03:39 | disposition home or self-care (01) ==
LOC: LBO 03:38
PROVIDERS: PCP Nurse Practitioner Family; Visit Provider Nurse Practitioner Family
DX: F32.2 Major depressive disorder, single episode, severe without psychotic features (principal); Z79.899 Other long term (current) drug therapy; R79.89 Other specified abnormal findings of blood chemistry
CPT/HCPCS: 36415; 80053; 80061; 82306; 82525; 83090; 84630; 85027; 82607; 82728; 82746; 83036; 83735; 84439; 84443; 84481; 86140

== ENCOUNTER 2022-09-21 12:15 | Outpatient (CLI) | payer OTHER, SELFPAY ==
[2022-09-21 15:05] LABS: HCT 42.9 % (36.0-46.0); HGB 14.1 g/dL (11.2-15.7); MCH 31.2 pg (27.0-33.0); MCHC 32.9 % (32.0-36.0); MCV 95 fL (80-95); MPV 8.8 fL (8.0-11.0); Platelet Count 427 10^3/uL (130-400); RBC 4.52 10^6/uL (3.93-5.22); RDW 15.2 % (11.7-14.6); RDW-SD 53.9 fL; WBC 13.76 10^3/uL (4.4-10.8)
== END 2022-09-21 12:16 | disposition home or self-care (01) ==
LOC: LBO 12:15
PROVIDERS: PCP Nurse Practitioner Family; Visit Provider Nurse Practitioner Psychiatric/Mental Health
DX: F43.10 Post-traumatic stress disorder, unspecified (principal)
CPT/HCPCS: 36415; 85027

== ENCOUNTER 2022-09-28 02:50 | Outpatient (CLI) | payer OTHER, SELFPAY ==
[2022-09-28 10:49] LABS: Abs Immature Grans 0.03 10^3/uL (0.0-0.06); Absolute Basophil Count 0.04 10^3/uL (0.0-0.2); Absolute Eosinophil Count 0.13 10^3/uL (0.0-0.7); Absolute Lymphocyte Count 3.12 10^3/uL (1.2-3.4); Absolute Monocyte Count 0.96 10^3/uL (0.1-0.8); Absolute Neutrophil Count 7.57 10^3/uL (1.2-6.7); Basophils % 0.3; Eosinophils % 1.1; HGB 14.4 g/dL (11.2-15.7); Immature Grans % 0.3; Lymphocytes % 26.3; MCH 31.2 pg (27.0-33.0); MCHC 32.7 % (32.0-36.0); MCV 95 fL (80-95); Monocytes % 8.1; Neutrophils % 63.9; Platelet Count 397 10^3/uL (130-400); RBC 4.62 10^6/uL (3.93-5.22); RDW 15.4 % (11.7-14.6); RDW-SD 54.7 fL; WBC 11.85 10^3/uL (4.4-10.8)
== END 2022-09-28 02:51 | disposition home or self-care (01) ==
PROVIDERS: PCP Nurse Practitioner Family; Visit Provider Nurse Practitioner Psychiatric/Mental Health
DX: F32.2 Major depressive disorder, single episode, severe without psychotic features (principal); Z79.899 Other long term (current) drug therapy
CPT/HCPCS: 36415; 85025

== ENCOUNTER 2022-10-04 12:18 | Outpatient (CLI) | payer OTHER, SELFPAY ==
--- OUTSIDE RECORDS SUMMARY | 2022-10-04 12:22 | XMS_ITS | Encounter Summary ---
:1975 Author Organization [facility] [place] [address] Care Team Providers Name Role Phone Luz Odalys TOSHIA Primary Care Provider Encounter Details Date Type Department Care Team Description 06/09/2022 TH Visit Gastroenterology at [facility] Jerry, Irritable bowel syndrome wit h diarrhea; (TeleHealth) [facility] [place] [address] Social History Tobacco Use Types Packs/Day Years Used Date Smoking Tobacco: Every Day Cigarettes 0.5 Smokeless Tobacco: Never Alcohol Use Standard Drinks/Week Comments Yes 7 (1 standard drink = 0.6 oz pure alcoho l) Sex Assigned at Date Recorded Female 12/12/2021 11:37 AM EST documented as of this encounter Progress Notes Chela Edwards RD - 06/09/2022 10:00 AM EDT Nutrition Reason for visit: follow up Location of patient: [place] Wt Readings from Last 5 Encounters: 05/20/22 63.5 kg (140 lb) 04/04/22 67.4 kg (148 lb 9.6 oz) 12/02/21 68.2 kg (150 lb 6.4 oz) 11/26/20 62.3 kg (137 lb 6.4 oz) 06/03/19 67 kg (147 lb 12.8 oz) Ht Readings from Last 5 Encounters: 05/20/22 154 cm (5' 0.63) 04/04/22 154.9 cm (5' 0.98) 12/02/21 154.9 cm (5' 0.98) 11/26/20 154.9 cm (5' 1) 06/03/19 154.9 cm (5' 1) UBW: 129 lbs but with all the bloating she's at 140 lbs Meds Include: Diet Recall: not eating much, maybe some mashed potatoes, small amount of meat (too heavy); can't eat because feels too full; she can only eat dinner once per day. She has been eating lactose free yogurt Eating oatmeal--not daily, can't because of the bloating She's constantly bloated Fluids: vitamin water Symptoms: Bloating severe, stomach constantly feels like it's full, like she's eaten 4 course meal; constant diarrhea (sometimes all day long, sometimes in the morning Stools are sometimes mucousy, sometimes brown, sometimes clear/pudding--fiber supplements did not help Evaluation: 46 year old female with chronic diarrhea, abdominal bloating, and abdominal cramping consistent with IBS-D. She had recent colonoscopy that showed no active inflammation in colon, normal esophageal biopsies, and minor inflammation in stomach. Overall looked good. We are meeting via video to discuss her dietary trials we discussed at last visit to see if might help her GI symptoms. Gluten free trial did not help. Drinking carlos tea every morning, sometimes 2-3 times per day, she not sure if it's helping. She's lactose intolerant so she stays away from lactose. She's constantly bloated and forces herself to eat and every time she eats bloating gets worse. She has nausea all day and no appetite. Diet Reviewed: continue lactose free--trial liquid nutrition Nutrition status: limited diet due to lack of appetite Trials: Gluten free--no benefit Lactose free--some benefit Low fodmap--avoiding gassy fruits/veg--no benefit Fiber supplements (capsules and powder)--citrucel--no benefit We discussed trying liquid nutrition given limited PO intake. She agrees with this. Recommendations/Plan: ?? Has appointment with PCP --suggested she ask about probiotic supplements, agree to trial these ?? Trial liquid oral nutrition (kf) to serve as nutrition source/supplement with limited diet ?? Also ask PCP or Psychiatrist about step christy medication trials to help treat her IBS-D (abdominalpain, frequent loose stools) as outlined in Daphnie's note from 01/03/22 Follow up with me 2-3 months or as needed documented in this encounter Plan of Treatment Upcoming Encounters Date Type Specialty Care Team Description 11/21/2022 Appointment Radiology Gricel Stoddard APRN [place] [id number] (Wo rk) documented as of this encounter Visit Diagnoses Diagnosis Irritable bowel syndrome with diarrhea Irritable bowel syndrome Bloating Flatulence, eructation, and gas pain documented in this encounter Care Teams Yard Coordinator Relationship Specialty Start Date End Date Odalys Escobar APRN PCP - General Family Medicine 11/26/20 [address] [place] [address] documented as of this encounter
--- OUTSIDE RECORDS SUMMARY | 2022-10-04 12:22 | XMS_ITS | Encounter Summary ---
:1975 Author Organization [facility] [place] [address] Care Team Providers Name Role Phone Luz Odalys TOSHIA Primary Care Provider Encounter Details Date Type Department Care Team Description 04/29/2022 Telephone Neurosurgery at [facility] [place] [address] Social History Tobacco Use Types Packs/Day Years Used Date Smoking Tobacco: Every Day Cigarettes 0.5 Smokeless Tobacco: Never Alcohol Use Standard Drinks/Week Comments Yes 7 (1 standard drink = 0.6 oz pure alcoho l) Sex Assigned at Date Recorded Female 12/12/2021 11:37 AM EST documented as of this encounter Miscellaneous Notes Telephone Encounter - Katie Haney RN - 04/29/2022 10:45 AM EDT Caller: Albina Reason for call: having a lot of nose bleeds and headache for 4 days. Nothing makes headaches better, has taken Excedrin, tylenol and nothing has touched it. Everything makes it worse. Headache in temples, back of head, forehead and mostly on right side. Rating this a 10/10, nauseated, vomited once last night. No new weakness or balance changes. Advised patient go to her local ED to be evaluate as soon as she can. She agreed to this plan. Also discussed with Gricel Stoddard and she agrees with this plan. Telephone Encounter - Katelyn Palafox - 04/29/2022 10:10 AM EDT Caller: Patient Best number to reach caller: [phone] Reason for call: Patient calling today complaining of frequent headaches over past 4 days. Had aneurysm clip done 04/04 and asks if this could be related Recent Surgery?: 04/04/2022 documented in this encounter Plan of Treatment Upcoming Encounters Date Type Specialty Care Team Description 11/21/2022 Appointment Radiology Gricel Stoddard APRN [place], [place] [address] (Wo rk) documented as of this encounter Visit Diagnoses Not on filedocumented in this encounter Care Teams Fish Grader Relationship Specialty Start Date End Date Odalys Escobar APRN PCP - General Family Medicine 11/26/20 [place] [address] documented as of this encounter
--- OUTSIDE RECORDS SUMMARY | 2022-10-04 12:22 | XMS_ITS | Encounter Summary ---
:1975 Author Organization [facility] Address [facility] [address] [place] [address] Care Team Providers Name Role Phone LuzOdalys TOSHIA Primary Care Provider Reason for Visit Auth/Cert Specialty Diagnoses / Procedures Referred By Contact Refer red To Contact Diagnoses Nausea Poor appetite Weight loss Diarrhea chronic nausea, poor appetite, unintentional weight loss and chronic diarrhea. Please biopsy to rule out celiac, IBD/microscopic colitis Subhash Luna MD [facility] Procedures PRO UPPER GI ENDOSCOPY, DIAGNOSTIC PRO COLONOSCOPY, DIAGNOSTIC PRO UPPER GI ENDOSCOPY, BIOPSY PRO UP GI ENDOSCOPY, REMV TUMOR, SNARE PRO COLONOSCOPY, REMV LESN, SNARE PRO COLONOSCOPY, BIOPSY PRO ANESTH, UGI ENDOSCOPY NOS [facility] PRO ANESTH, LWR INTESTINE, N OS EGD, UPPER GI ENDOSCOPY COLONOSCOPY, [place] [address] Referral ID Status Reason Start Date Expiration Date Visits Requ ested Visits Authorized [id number] 1 1 Encounter Details Date Type Department Care Team Description 05/20/2022 [place] [facility] Luna, EGD WITH BIOPSY ([facility] Naveed de jesus MD [address].49) [place] [address] [facility] [phone] DR GASTROENTEROLOGY [place], [place] [address] Social History Tobacco Use Types Packs/Day Years Used Date Smoking Tobacco: Every Day Cigarettes 0.5 Smokeless Tobacco: Never Alcohol Use Standard Drinks/Week Comments Yes 7 (1 standard drink = 0.6 oz pure alcoho l) Sex Assigned at Date Recorded Female 12/12/2021 11:37 AM EST documented as of this encounter Last Filed Vital Signs Vital Sign Reading Time Taken Comments Blood Pressure 96/62 05/20/2022 10:00 AM EDT Pulse 57 05/20/2022 9:57 AM EDT Temperature 36.9 ??C (98.4 ??F) 05/20/2022 8:11 AM EDT Respiratory Rate 18 05/20/2022 10:00 AM EDT Oxygen Saturation 99% 05/20/2022 10:00 AM EDT Inhaled Oxygen Concentration - - Weight 63.5 kg (140 lb) 05/20/2022 8:11 AM EDT Height 154 cm (5' 0.63) 05/20/2022 8:11 AM EDT Body Mass Index 26.78 05/20/2022 8:11 AM EDT documented in this encounter Discharge Instructions Discharge InstructionsiJll Wilson RN - 05/20/2022 10:01 AM EDT Upper Endoscopy (EGD) and Colonoscopy: What to Expect at Home Your Recovery After you have an EGD and colonoscopy, you will stay at the clinic for 1 to 2 hours until the medicines wear off. Then you can go home. But you will need to arrange for a ride. Your doctor will tell you when you can eat and do your other usual activities. Your doctor will talk to you about when you will need your next colonoscopy. Your doctor can help you decide how often you need to be checked. This will depend on the results of your test and your riskfor colorectal cancer. You may have a sore throat for a day or two after the test. After the test, you may be bloated or have gas pains. You may need to pass gas. If a biopsy was done or a polyp was removed, you may have streaks of blood in your stool (feces) for a few days. Problems such as heavy rectal bleeding may not occur until several weeks after the test. This isn't common. But it can happen after polyps are removed. This care sheet gives you a general idea about how long it will take for you to recover. But each person recovers at a different pace. Follow the steps below to get better as quickly as possible. How can you care for yourself at home? Activity Rest when you feel tired. You can do your normal activities when it feels okay to do so. Diet Follow your doctor's directions for eating. Unless your doctor has told you not to, drink plenty of fluids. This helps to replace the fluids that were lost during the colon prep. Do not drink alcohol. Medicines If you have a sore throat the day after the test, use an miou-alg-ipsheag spray or lozenges to numbyour throat. Warm salt water gargles can also help the discomfort. Your doctor will tell you if and when you can restart your medicines. He or she will also give you instructions about taking any new medicines. If you take blood thinners, such as warfarin (Coumadin), clopidogrel (Plavix), or aspirin, be sure to talk to your doctor. He or she will tell you if and when to start taking those medicines again. Make sure that you understand exactly what your doctor wants you to do. If polyps were removed or a biopsy was done during the test, your doctor may tell you not to take aspirin or other anti-inflammatory medicines for a few days. These include ibuprofen (Advil, Motrin) and naproxen (Aleve). Other instructions for patients who received sedation: You may have received medications during the procedure which effect your judgement and reaction time. For your safety, do not drive or operate machinery until the medicine wears off and you can think clearly. Your doctor may tell you not to drive or operate machinery until the day after your test. Do not sign legal documents or make major decisions until the medicine wears off and you can think clearly. The anesthesia can make it hard for you to fully understand what you are agreeing to. Be careful on stairs and when standing up quickly as you may be unsteady on your feet. IV site: Slight redness or tenderness is normal. You can use a warm compress if you would like. If tenderness and/or redness increase or if foul drainage occurs, please contact your doctor. Please call [phone] before 8pm Mon-Fri with problems, questions, or concerns. If you call [email or web address] or on weekends, call the Hospital at [phone] and ask for the Building Services Technician joint special operations andthe line operator will contact that person for you. When should you call for help? Call 911 anytime you think you may need emergency care. For example, call if: You passed out (lost consciousness). You pass maroon or bloody stools. You have trouble breathing. Call your doctor now or seek immediate medical care if: You have pain that does not get better after you take pain medicine. You are sick to your stomach or cannot drink fluids. You have new or worse belly pain. You have blood in your stools. You have a fever. You cannot pass stools or gas. Your throat still hurts after a day or two. Your throat still hurts after a day or two. Watch closely for changes in your health, and be sure to contact your doctor if you have any problems. Where can you learn more? You can view health information on [employer], your personal patient account. Log in or sign up today. Content Version: 12.2 ?? [id number] [employer]. Care instructions adapted under license by [facility]. If you have questions about a medical condition or this instruction, always ask your healthcare professional. [employer] disclaims any warranty or liability for your use of this information. documented in this encounter Medications at Time of Discharge Medication Sig Dispensed Refills Start Date End Date ALPRAZolam (Xanax) 1 mg Take 1 mg by mouth 0 Tablet daily. Extended release clopidogreL (Plavix) 75 mg Take 1 tablet by 90 tablet 3 Tablet mouth daily. acetaminophen (Tylenol) 500 Take 2 tablets by 30 tablet 1 0 04/05/2022 mg Tablet mouth every 6 hours as needed for Pain (mild pain (1-3)). aspirin 325 mg Tablet Take 1 tablet by 90 tablet 3 04/06/20 22 mouth daily. pregabalin (LYRICA) 150 mg Take 150 mg by mouth 0 03/01/2022 Capsule 2 times daily. methylphenidate (RITALIN) Take 20 mg by mouth 0 0 12/16/2021 20 mg Tablet daily. propranoloL (Inderal) 10 mg TAKE ONE TABLET BY 60 tablet 1 01/01/2021 TabletIndications: MOUTH TWO TIMES Subclinical hyperthyroidism DAILY NEEDED (FOR PALPITATIONS). pantoprazole EC (Protonix) Take 40 mg by mouth 0 40 mg Tablet, Delayed daily. Release (E.C.) cariprazine (Vraylar) 1.5 Take 3 mg by mouth 0 mg Capsule daily. topiramate (Topamax) 100 mg Take 100 mg by mouth 0 Tablet nightly. VIIBRYD 40 mg Tablet TAKE 1 TABLET BY 3 9 MOUTH ONCE DAILY ALPRAZolam (XANAX) 1 mg Take 1 mg by mouth 0 04/2019 Tablet as needed. OLANZapine (ZYPREXA) 5 mg Take 10 mg by mouth 0 0 05/28/2019 Tablet nightly. documented as of this encounter H&P Notes Subhash Luna MD - 05/20/2022 8:21 AM EDT Gastroenterology and Hepatology Pre-Procedure History and Physical Exam Procedure: Colonoscopy: EGD Indication: ab pain and diarrhea Patient Active Problem List Diagnosis Code ??? CIS - Anxiety/depression ??? CIS - kidney stones ??? CIS - Knee arthritis ??? CIS - Obesity ??? CIS - subclinical hyperthyroidism ??? Persistent depressive disorder F34.1 ??? Bipolar disorder F31.9 ??? Restless leg syndrome G25.81 ??? Right internal carotid artery aneurysm I67.1 EXAM: HEENT: Airway examined, oropharynx clear Mallampati Score: II (soft palate, uvula, fauces visible) LUNGS: Clear to auscultation HEART: Regular rate and rhythm, normal S1, S2 ABDOMEN: Normal bowel sounds, soft, non tender, non distended, A/P Proceed with the planned endoscopic procedure. ASA 2 - Patient with mild systemic disease with no functional limitations Sedation Plan: anesthesia Risks and benefits of the procedure explained to the patient. Consent signed. documented in this encounter Plan of Treatment Upcoming Encounters Date Type Specialty Care Team Description 11/21/2022 Appointment Radiology Gricel Stoddard APRN [place], [place] [address] (Wo rk) documented as of this encounter Procedures Procedure Name Priority Date/Time Associated Diagnosis Comme nts SURGICAL PATHOLOGY Routine 05/20/2022 9:48 AM Res ults for this REPORT EDT procedure are i n the results section. SPECIMEN TO Routine 05/20/2022 9:48 AM Results f or this PATHOLOGY EDT procedure are i n the results section. SPECIMEN TO Routine 05/20/2022 9:48 AM Results f or this PATHOLOGY EDT procedure are i n the results section. SPECIMEN TO Routine 05/20/2022 9:48 AM Results f or this PATHOLOGY EDT procedure are i n the results section. SPECIMEN TO Routine 05/20/2022 9:48 AM Results f or this PATHOLOGY EDT procedure are i n the results section. COLONOSCOPY 05/20/2022 9:24 AM Persistent FLEXIBLE, WITH BX EDT depressive dis order (WRVU 3.66) Bipolar affective disorder, remission status unspecifi ed Diarrhea, unspecified type Irritable bowel syndrome with diarrhea Bloating Poor appetite Early satiety Unintentional weight loss EGD WITH BIOPSY 05/20/2022 9:24 AM Persistent (WRVU 2.49) EDT depressive disor melida Bipolar affective disorder, remission status unspecifi ed Diarrhea, unspecified type Irritable bowel syndrome with diarrhea Bloating Poor appetite Early satiety Unintentional weight loss UPPER GI ENDOSCOPY Routine 05/20/2022 9:12 AM Res ults for this EDT procedure are i n the results section. COLONOSCOPY Routine 05/20/2022 9:12 AM Results f or this EDT procedure are i n the results section. documented in this encounter Results Surgical Pathology Report (05/20/2022 9:48 AM EDT) Component Value Ref Test Analysis Performed At [facility] Method Time Signature Surgical [id number] ? Location: 4T; EA; A [facility] Pathology [place] Report The signing pathologist has (i) examined the relevant preparation(s) for the [facility] specimen(s) and (ii) rendered or confirmed the diagnosis(es) . HOSPITAL LABORATORY . ?Surgic al Pathology DIAGNOSIS A - Duodenal bx's. r/o celiac, biopsy (Multiple): - Duodenal mucosa with focal mild villous blunting, nonspeci fic. - Separate fragments of ?? d uodenal mucosa within normal limits, including preserved villous architecture. B - Gastric bx's. r/o h-pylori, biopsy (Multiple): - ??Gastric antral and fundi c gland mucosa with nonspecific reactive gastropathy. - H. pylori organisms are not seen. C - Esoph bx's. r/o EOE, biopsy (Multiple): - ??Esophageal squamous mucosa, within normal limits. D - Non-targeted colon bx's. r/o microscopic colitis, biopsy (Multiple): - Colonic mucosa with mild a rchitectural disarray, non-specific, see Discussion. Electronically signed by: ?Sarahy BLAND PhD, Mari Verified: ??05/24/2022 14:41 ??Pathologist Performed at: ??-[facility] [place], [place], [place] DISCUSSION D - The findings are non-specific and could represent a reso lving colitis. SPECIMEN(S) SUBMITTED A - Duodenal bx's. r/o celiac, biopsy (Multiple) B - Gastric bx's. r/o h-pylori, biopsy (Multiple) C - Esoph bx's. r/o EOE, biopsy (Multiple) D - Non-targeted colon bx's. r/o microscopic colitis, biopsy (Multiple) CLINICAL INFORMATION 46-year-old with diarrhea, abdominal pain, nausea/vomiting SPECIMEN PROCESSING A - Labeled/Fixative: Duodenal BX, rule out celiac, formalin . Quantity/Size: Five, ranging from 0.1-0.5 cm. Tissue Description: Soft, pink tissues. Sections/Processing: Submitted en toto ??in 1 cassette labeled A1. B - Labeled/Fixative: Gastric BX, rule out H. pylori, formal in. Quantity/Size: Five, ranging from 0.1-0.5 cm. Tissue Description: Soft, pink tissues. Sections/Processing: Submitted en toto ??in 1 cassette labeled B1. C - Labeled/Fixative: Esophagus BX, rule out EOE, formalin. Quantity/Size: Three, averaging 0.5 cm. Tissue Description: Soft, pink-white tissues. Sections/Processing: Submitted en toto ??in 1 cassette labeled C1. . SPECIMEN PROCESSING D - Labeled/Fixative: Non-ta rgeted colon BX, rule out microscopic colitis, formalin. Quantity/Size: Multiple, ranging from 0.2-0.5 cm. Tissue Description: Soft, pink tissues. Sections/Processing: Submitted en toto ??in 2 cassettes labeled D1-D2. ??sns Specimen (Source) Anatomical Collection Method Collection Time Re ceived Time Location / / Volume Laterality 05/20/2022 9:48 AM EDT Subhash Luna MD PATHOLOGY/CYTOLOGY ORDERABLE S Performing Organization Address City/[facility] [place] [address] Specimen to Pathology (05/20/2022 9:48 AM EDT) Specimen Anatomical Collection Method Collection Time Receive d Time (Source) Location / / Volume Laterality AP Specimen 05/20/2022 9:48 AM 2 9:48 EDT AM EDT Narrative [facility] - 05/20/2022 9:48 AM EDT Specimen requisition ordered. ??Separate Pathology report to follow Subhash Luna MD PATHOLOGY/CYTOLOGY ORDERABLE S Performing Organization Address City/[facility]/[place] [address] Specimen to Pathology (05/20/2022 9:48 AM EDT) Specimen Anatomical Collection Method Collection Time Receive d Time (Source) Location / / Volume Laterality AP Specimen 05/20/2022 9:48 AM 2 9:48 EDT AM EDT Narrative [facility] - 05/20/2022 9:48 AM EDT Specimen requisition ordered. ??Separate Pathology report to follow Subhash Luna MD PATHOLOGY/CYTOLOGY ORDERABLE S Performing Organization Address City/[facility]/[place] [address] Specimen to Pathology (05/20/2022 9:48 AM EDT) Specimen Anatomical Collection Method Collection Time Receive d Time (Source) Location / / Volume Laterality AP Specimen 05/20/2022 9:48 AM 2 9:48 EDT AM EDT Narrative [facility] - 05/20/2022 9:48 AM EDT Specimen requisition ordered. ??Separate Pathology report to follow Subhash Luna MD PATHOLOGY/CYTOLOGY ORDERABLE S Performing Organization Address [facility]/[place] [address] Specimen to Pathology (05/20/2022 9:48 AM EDT) Specimen Anatomical Collection Method Collection Time Receive d Time (Source) Location / / Volume Laterality AP Specimen 05/20/2022 9:48 AM 2 9:48 EDT AM EDT Narrative [facility] [place] 05/20/2022 9:48 AM EDT Specimen requisition ordered. ??Separate Pathology report to follow Subhash Luna MD PATHOLOGY/CYTOLOGY ORDERABLE S Performing Organization Address City/[facility] [place] [address] UPPER GI ENDOSCOPY (05/20/2022 9:12 AM EDT) [facility] Method Time Signature UPPER GI [facility] ENDOSCOPY Endoscopy Procedure Date: 05/20/2022 9:12 AM ? Patient Name: Franchesca Dickson ? N: [id number] ? Date of : 1975 ? Age: 46 ? Order #: [id number] ? Instrument Name: [id number] ? Procedure: ? Upper GI endoscopy Indications: ? Epigastric abdominal pain, ? Dyspepsia, diarrhea and bl oating Providers: ? Subhash Luna MD, Victor M Ding ? CHANTELLE Delgado, Stormy Garza on Referring MD: ?Odalys Coleman Medicines: ? See the Anesthesia note for ? documentation of the admin istered ? medications Complications: ? No immediate complications. Procedure: ? The procedure, indications, ? benefits, risks and altern atives ? were explained to the moses ent. ? Specifically discussed wer e ? potential complications in cluding, ? but not limited to, nely samuels, ? perforation, infection, mi ssing a ? cancer, and adverse medica tion ? reactions. The Endoscope w as ? introduced through the shona , and ? advanced to the third part of ? duodenum The upper GI endo scopy was ? accomplished without diffi culty. ? The patient tolerated the procedure ? well. ? Findings: ? The examined esophagus was normal. Biopsies were ? taken with a cold forceps for histology. ? The Z-line was regular and was found 36 cm from the ? incisors. ? The entire examined stomach was normal. Biopsies were ? taken with a cold forceps for Helicobacter pylori ? testing. ? The examined duodenum was normal. Biopsies were taken ? with a cold forceps for histology. ? Moderate Sedation: ? Not applicable - See Anesthesia documentation Impression: ?- Normal esophagus. Biopsied. ? - Z-line regular, 36 cm fr om the ? incisors. ? - Normal stomach. Biopsied . ? - Normal examined duodenum . ? Biopsied. Recommendation: ?- Await pathology results. ? Attending Participation: ? I personally performed the entire procedure. ? Subhash Luna MD 05/20/2022 9:36:59 AM This report has been signed electronically. Number of Addenda: 0 Note Initiated On: 05/20/2022 9:12 AM Specimen (Source) Anatomical Collection Method Collection Time Re ceived Time Location / / Volume Laterality 05/20/2022 9:12 AM EDT Odalys Escobar APRN GENERAL SURGICAL ORDERABLES Performing Organization Address City/State/ZIP Code Phon e Number [facility] COLONOSCOPY (05/20/2022 9:12 AM EDT) [facility] Method Time Signature COLONOSCOPY [facility] Endoscopy Procedure Date: 05/20/2022 9:12 AM ? Patient Name: Franchesca Dickson ? Date of : 1975 ? Age: 46 ? Order #: [id number] ? Instrument Name: [id number] ? Procedure: ? Colonoscopy Indications: ? Abdominal pain and diarrhea Providers: ? Subhash Luna MD, Victor M Ding ? CHANTELLE Delgado, Stormy Garza on Referring MD: ?Odalys Coleman Medicines: ? See the Anesthesia note for ? documentation of the admin istered ? medications Complications: ? No immediate complications. Procedure: ? The procedure, indications, ? benefits, risks and altern atives ? were explained to the moses ent. ? Specifically discussed wer e ? potential complications in cluding, ? but not limited to, nely samuels, ? perforation, infection, mi ssing a ? cancer, and adverse medica tion ? reactions. The patient was placed ? in the left lateral decubi tus ? position, and a digital re ctal exam ? was performed. The Colonos cope was ? inserted in the anus and u nder ? direct visualization, adva nced to ? the terminal ileum. Carefu l ? inspection was made as the ? colonoscope was withdrawn. The ? colonoscopy was performed without ? difficulty. The patient to lerated ? the procedure well. The qu ality of ? the bowel preparation was evaluated ? using the BBPS ([place] el ? Preparation Scale) with sc ores of: ? Right Colon = 3, Transvers e Colon = ? 3 and Left Colon = 3 (enti re mucosa ? seen well with no residual ? staining, small fragments of stool ? or opaque liquid). The tot al BBPS ? score equals 9. Scope with drawal ? time was 10 minutes. ? Findings: ? The perianal and digital rectal examinations were ? normal. ? The colon mucosa (entire examined portion) appeared ? normal. Biopsies were taken with a cold forceps for ? histology. ? The terminal ileum appeared normal. ? Internal hemorrhoids were found during retroflexion. ? The hemorrhoids were small. ? A few small-mouthed diverticula were found in the ? sigmoid colon. ? Moderate Sedation: ? Not applicable - See Anesthesia documentation Impression: ?- The entire examined colon is ? normal. Biopsied. ? - The examined portion of the ileum ? was normal. ? - Internal hemorrhoids. ? - Diverticulosis in the si gmoid ? colon. Recommendation: ?- Await pathology results. ? Attending Participation: ? I personally performed the entire procedure. ? Subhash Luna MD 05/20/2022 9:54:37 AM This report has been signed electronically. Number of Addenda: 0 Note Initiated On: 05/20/2022 9:12 AM Specimen (Source) Anatomical Collection Method Collection Time Re ceived Time Location / / Volume Laterality 05/20/2022 9:12 AM EDT Odalys Escobar HEALTHCARE PROF GENERAL SURGICAL ORDERABLES Performing Organization Address City/State/ZIP Code Phon e Number [facility] documented in this encounter Visit Diagnoses Diagnosis Persistent depressive disorder Bipolar affective disorder, remission st atus unspecified Diarrhea, unspecified type Irritable bowel syndrome with diarrhea Irritable bowel syndrome Bloating Flatulence, eructation, and gas pain Poor appetite Anorexia Early satiety Unintentional weight loss Loss of weight documented in this encounter Administered Medications Inactive Administered Medications - up to 3 most recent administrations Medication Order MAR Action Action Date Dose Rate Site lactated ringers infusion New Bag 05/20/2022 8:27 AM EDT 100 mL/hr 100 mL/hr 100 mL/hr, Intravenous, CONTINUOUS, Starting on Mon05/20/22 at 0830, Until Mon05/20/22 at 1053, Endoscopy (Day of Procedure) documented in this encounter Active and Recently Administered Medications Times are shown in EDT. Continuous Medication Order 05/18/2022 05/19/2022 05/20/2022 lactated ringers infusion (CANCELED) 0827 (New Bag - Provider: Joanie Monte RN) 100 mL/hr, Intravenous, CONTINUOUS, Star ting on Mon05/20/22 at 0830, Until Mon05/20/22 at 1053, Endoscopy (Day of Procedure) documented in this encounter Care Teams Fur Mixer Operator Relationship Specialty Start Date End Date Odalys Escobar APRN PCP - General Family Medicine 11/26/20 [address] [place] [address] documented as of this encounter
--- OUTSIDE RECORDS SUMMARY | 2022-10-04 12:22 | XMS_ITS | Encounter Summary ---
:1975 Author Organization [facility] [place] [address] Care Team Providers Name Role Phone Luz Odalys TOSHIA Primary Care Provider Encounter Details Date Type Department Care Team Description 04/05/2022 Telephone Neurosurgery at [facility] Marisel Herbert PA [facility] [place] [address] NEUROSURGERY [phone] [place], [place] [address] (Wo rk) Social History Tobacco Use Types Packs/Day Years Used Date Smoking Tobacco: Every Day Cigarettes 0.5 Smokeless Tobacco: Never Alcohol Use Standard Drinks/Week Comments Yes 7 (1 standard drink = 0.6 oz pure alcoho l) Sex Assigned at Date Recorded Female 12/12/2021 11:37 AM EST documented as of this encounter Miscellaneous Notes Telephone Encounter - Madison Stoddard - 04/08/2022 10:37 AM EDT Pt returning VM. Rescheduled TOV/HCK w/ALP on 05/04/2022 Telephone Encounter - Monica Butcher - 04/08/2022 9:15 AM EDT Images from the original note were not included. LM to resched [place] HCK on 05/04 to a TOV/HCK with Gricel ~~~~~~~~~~~~~~~~~~~~~~~~~~~~~~~ HCK TOV with AP in 4 weeks, thanks Received: Today Gricel Stoddard APRN P [facility] Neurosurgery [place] ?? Previous Messages Telephone Encounter - Monica Butcher - 04/05/2022 12:45 PM EDT Images from the original note were not included. Scheduled for 05/04 at 1pm, will be on d/c paperwork, pt still admitted Marisel Herbert, PA P [facility] Neurosurgery [place] ?? Comments f/u dr. meneses 4 weeks documented in this encounter Plan of Treatment Upcoming Encounters Date Type Specialty Care Team Description 11/21/2022 Appointment Radiology Gricel Stoddard APRN [facility] [place], [place] [address] (Wo rk) documented as of this encounter Visit Diagnoses Not on filedocumented in this encounter Care Teams Aircraft Systems Repairer Relationship Specialty Start Date End Date Odalys Escobar APRN PCP - General Family Medicine 11/26/20 [address] [place] [address] documented as of this encounter
--- OUTSIDE RECORDS SUMMARY | 2022-10-04 12:22 | XMS_ITS | Encounter Summary ---
:1975 Author Organization [facility] [place] [address] Care Team Providers Name Role Phone Odalys Escobar APRN Primary Care Provider Encounter Details Date Type Department Care Team Description 05/13/2022 Telephone [place] [facility] [place] [address] [address] [phone] NEUROSURGERY [place], [place] [address] (Wo rk) Social History Tobacco Use Types Packs/Day Years Used Date Smoking Tobacco: Every Day Cigarettes 0.5 Smokeless Tobacco: Never Alcohol Use Standard Drinks/Week Comments Yes 7 (1 standard drink = 0.6 oz pure alcoho l) Sex Assigned at Date Recorded Female 12/12/2021 11:37 AM EST documented as of this encounter Miscellaneous Notes Telephone Encounter - Monica Butcher - 05/13/2022 3:21 PM EDT 6 mo recall entered. Franchesca Dickson - 05/13/22 Gricel Stoddard APRN Sent: MonMay 13, 2022 ??3:03 PM To: P [facility] Neurosurgery Director Of Coding ?? Message 6 mos cerebral angiogram documented in this encounter Plan of Treatment Upcoming Encounters Date Type Specialty Care Team Description 11/21/2022 Appointment Radiology Gricel Stoddard APRN [place], [place] [address] (Wo rk) documented as of this encounter Visit Diagnoses Not on filedocumented in this encounter Care Teams Internal Security Manager Relationship Specialty Start Date End Date Odalys Escoabr APRN PCP - General Family Medicine 11/26/20 [address] [place] [address] documented as of this encounter
--- OUTSIDE RECORDS SUMMARY | 2022-10-04 12:22 | XMS_ITS | Encounter Summary ---
:1975 Author Organization [facility] Address [address] [place] [address] Care Team Providers Name Role Phone Luz Odalys TOSHIA Primary Care Provider Reason for Visit Auth/Cert Specialty Diagnoses / Procedures Referred By Contact Refer red To Contact Diagnoses Nausea Poor appetite Weight loss Diarrhea chronic nausea, poor appetite, unintentional weight loss and chronic diarrhea. Please biopsy to rule out celiac, IBD/microscopic colitis Subhash Luna MD [facility] Procedures PRO UPPER GI ENDOSCOPY, DIAGNOSTIC PRO COLONOSCOPY, DIAGNOSTIC PRO UPPER GI ENDOSCOPY, BIOPSY PRO UP GI ENDOSCOPY, REMV TUMOR, SNARE PRO COLONOSCOPY, REMV LESN, SNARE PRO COLONOSCOPY, BIOPSY PRO ANESTH, UGI ENDOSCOPY NOS [facility] DR [place] ANESTH, LWR INTESTINE, N OS EGD, UPPER GI ENDOSCOPY COLONOSCOPY, [place] [address] Referral ID Status Reason Start Date Expiration Date Visits Requ ested Visits Authorized [id number] 1 1 Encounter Details Date Type Department Care Team Description 05/20/2022 Hospital Encounter Gastroenterology at [facility] Subhash uLna, [facility] [place] [address] [facility] [phone] [facility] [place], [place] [address] Social History Tobacco Use Types Packs/Day Years Used Date Smoking Tobacco: Every Day Cigarettes 0.5 Smokeless Tobacco: Never Alcohol Use Standard Drinks/Week Comments Yes 7 (1 standard drink = 0.6 oz pure alcoho l) Sex Assigned at Date Recorded Female 12/12/2021 11:37 AM EST documented as of this encounter Last Filed Vital Signs Vital Sign Reading Time Taken Comments Blood Pressure 118/74 05/20/2022 10:40 AM EDT Pulse 57 05/20/2022 9:57 AM EDT Temperature 36.9 ??C (98.4 ??F) 05/20/2022 8:11 AM EDT Respiratory Rate 18 05/20/2022 10:40 AM EDT Oxygen Saturation 97% 05/20/2022 10:40 AM EDT Inhaled Oxygen Concentration - - Weight 63.5 kg (140 lb) 05/20/2022 8:11 AM EDT Height 154 cm (5' 0.63) 05/20/2022 8:11 AM EDT Body Mass Index 26.78 05/20/2022 8:11 AM EDT documented in this encounter Discharge Instructions Discharge InstructionsJill Wilson RN - 05/20/2022 10:01 AM EDT [...] the day after the test, use an [id number]-[id number]-rpkscrr spray or lozenges to numbyour throat. Warm [...] occurs, please contact your doctor. Please call [phone] before 8pm Mon-Fri with problems, questions, or concerns. If you call bo[facility]ja or on weekends, call the Hospital at [phone] and ask for the Customer Resolution Specialist property assessment monitor andthe cryptologic technician operator/analyst will contact that person for you. When [...] more? You can view health information on [employer], your personal patient account. Log in or sign up today. Content Version: 12.2 ?? 4896-0373 [employer]. Care instructions adapted under license by [facility]. If you have questions about a medical condition or this instruction, always ask your healthcare professional. [employer] disclaims any warranty or liability for your [...] Care Team Description 11/21/2022 Appointment Radiology Gricel Stoddard, EQUIPMENT TECHNICIAN [place] [id number] (Wo rk) documented as of this encounter [...] Component Value Ref Test Analysis Performed At [facility] Method Time Signature Surgical [id number] ? Location: ; [facility]; [facility] Report The signing pathologist has (i) examined [...] Mari Verified: ??05/24/2022 14:41 ??Pathologist Performed at: ??-[facility] Dept. of Pathology, [place], [place] DISCUSSION D - The findings are [...] MD PATHOLOGY/CYTOLOGY ORDERABLE S Performing Organization Address City/[facility]/[place] [address] Specimen to Pathology (05/20/2022 9:48 AM EDT) Specimen Anatomical Collection Method Collection Time Receive d Time (Source) Location / / Volume Laterality AP Specimen 05/20/2022 9:48 AM 2 9:48 EDT AM EDT Narrative [facility] - 05/20/2022 9:48 AM EDT Specimen requisition ordered. ??Separate Pathology report to follow Subhash Luna MD PATHOLOGY/CYTOLOGY ORDERABLE S Performing Organization Address City/[facility]/[place] [address] Specimen to Pathology (05/20/2022 9:48 AM EDT) Specimen Anatomical Collection Method Collection Time Receive d Time (Source) Location / / Volume Laterality AP Specimen 05/20/2022 9:48 AM 2 9:48 EDT AM EDT Narrative [facility] - 05/20/2022 9:48 AM EDT Specimen requisition ordered. ??Separate Pathology report to follow Subhash Luna MD PATHOLOGY/CYTOLOGY ORDERABLE S Performing Organization Address City/[facility]/[place] [address] Specimen to Pathology (05/20/2022 9:48 AM EDT) Specimen Anatomical Collection Method Collection Time Receive d Time (Source) Location / / Volume Laterality AP Specimen 05/20/2022 9:48 AM 2 9:48 EDT AM EDT Narrative [facility] - 05/20/2022 9:48 AM EDT Specimen requisition ordered. ??Separate Pathology report to follow Subhash Luna MD PATHOLOGY/CYTOLOGY ORDERABLE S Performing Organization Address [facility]/ZIP Code Phon e Number [address] Specimen to Pathology (05/20/2022 9:48 AM EDT) Specimen Anatomical Collection Method Collection Time Receive d Time (Source) Location / / Volume Laterality AP Specimen 05/20/2022 9:48 AM 2 9:48 EDT AM EDT Narrative [facility] - 05/20/2022 9:48 AM EDT Specimen requisition ordered. ??Separate Pathology report to follow Subhash Luna MD PATHOLOGY/CYTOLOGY ORDERABLE S Performing Organization Address City/[facility] [place] [address] UPPER GI ENDOSCOPY (05/20/2022 9:12 AM EDT) [facility] Method Time Signature UPPER GI [facility] [employer] ENDOSCOPY Endoscopy Procedure Date: 05/20/2022 9:12 AM ? Patient Name: Franchesca Dickson ? N: [id number] ? Date of : 1975 ? Age: 46 ? Order #: [id number] ? Instrument Name: [id number] ? Procedure: ? Upper GI endoscopy Indications: [...] Number [employer] COLONOSCOPY (05/20/2022 9:12 AM EDT) [facility] Method Time Signature COLONOSCOPY [facility] [employer] Endoscopy Procedure Date: 05/20/2022 9:12 AM ? Patient Name: Franchesca Dickson ? Date of : 1975 ? Age: 46 ? Order #: [id number] ? Instrument Name: [id number] ? Procedure: ? Colonoscopy Indications: ? Abdominal pain and diarrhea Providers: ? Subhash Luna MD, Victor M Ding ? CHANTELLE Delgado, Stormy Garza on Referring MD: ?dOalys Coleman Medicines: ? See the Anesthesia note [...] preparation was evaluated ? using the BBPS ([place] el ? Preparation Scale) with sc ores [...] Laterality 05/20/2022 9:12 AM EDT Odalys Escobar EQUIPMENT TECHNICIAN GENERAL SURGICAL ORDERABLES Performing Organization Address City/State/ZIP Code Phon e Number [employer] documented in this encounter Visit Diagnoses Not on filedocumented in this encounter Administered Medications Inactive Administered [...] Procedure) documented in this encounter Care Teams Extension Service Supervisor Relationship Specialty Start Date End Date Odalys Escobar APRN PCP - General Family Medicine 11/26/20 [address] [place] [address] documented as of this encounter
--- OUTSIDE RECORDS SUMMARY | 2022-10-04 12:22 | XMS_ITS | Clinical Summary ---
:1975 Author Organization [facility] [place] [address] Care Team Providers Name Role Phone Odalys Escobar APRN Primary Care Provider Allergies Active Allergy Reactions Severity Noted Date Comments Erythromycin 10/01/2018 Erythromycin Base CIS - Naus ea/Vomiting Paroxetine Hcl CIS - PALPITA TIONS, INSOMNIA Shellfish Containing Anaphylaxis High 01/28/2022 Per pt, she has received Products contrast dye in CT with no adverse reac tions Sulfa (Sulfonamide CIS - Hiv es Antibiotics) Sulfur 10/01/2018 Tree Nut Rash 06/03/2019 Medications Medication Sig Dispensed Refills Start Date End Date Status VIIBRYD 40 mg Tablet TAKE 1 TABLET BY 3 05/07/2019 Active MOUTH ONCE DAILY ALPRAZolam (XANAX) 1 mg Take 1 mg by 0 05/18/2019 Active Tablet mouth as needed. OLANZapine (ZYPREXA) 5 Take 10 mg by 0 05/28/2019 Active mg Tablet mouth nightly. cariprazine (Vraylar) Take 3 mg by 0 Active 1.5 mg Capsule mouth daily. topiramate (Topamax) 100 Take 100 mg by 0 Active mg Tablet mouth nightly. pantoprazole EC Take 40 mg by 0 Active (Protonix) 40 mg Tablet, mouth daily. Delayed Release (E.C.) propranoloL (Inderal) 10 TAKE ONE TABLET 60 tablet 1 1 Active mg TabletIndications: BY MOUTH TWO Subclinical TIMES DAILY hyperthyroidism NEEDED (FOR PALPITATIONS). methylphenidate Take 20 mg by 0 12/16/2021 Active (RITALIN) 20 mg Tablet mouth daily. pregabalin (LYRICA) 150 Take 150 mg by 0 03/01/2022 Active mg Capsule mouth 2 times daily. clopidogreL (Plavix) 75 Take 1 tablet by 90 tablet 3 2 Active mg Tablet mouth daily. acetaminophen (Tylenol) Take 2 tablets 30 tablet 1 04/05/2022 Active 500 mg Tablet by mouth every 6 hours as needed for Pain (mild pain (1-3)). aspirin 325 mg Tablet Take 1 tablet by 90 tablet 3 04/06/2022 Active mouth daily. ALPRAZolam (Xanax) 1 mg Take 1 mg by 0 Active Tablet mouth daily. Extended release Active Problems Problem Noted Date Right internal carotid artery aneurysm 01/05/2022 Overview: CTA head (11/08/2021) - right paraclinoi d ICA aneurysm measuring 7 mm in largest dimension extending intradurally. Incidental finding. 04/04/22 Pipeline flow diverter stent emb olization of the R ICA aneurysm, Dr. Bloom. Missed HCK 05/04/22, letter sent re: post -op instructions. See Letters tab. Bipolar disorder 05/28/2020 Restless leg syndrome 05/28/2020 Persistent depressive disorder 10/01/2018 CIS - subclinical hyperthyroidism 2006 Overview: Lab (04/19): TSH = 0.16 -> 0.27 with norm al FT4 0.96 (06/19) Lab 03/28/08: TSH = 0.17, FT4= 1.08, norm al CBC, B12 = 481, normal CMP, Alk phos 118, Ca 9.0 Lab 02/25/09: TSH = 0.05, FT4 = 1.06 +palpitations, diarrhea, fatigue but no weight loss Thyroid nuclear scan and uptake (03/19/09) : normal I-131 uptake at 26% (24h), normal sized gland. Recent lab at initial Endo clinic (): TSH = 0.17, T4 = 8.4, T3 = 110 (normal 75-170) CIS - Anxiety/depression CIS - kidney stones CIS - Knee arthritis CIS - Obesity Overview: Wt = 171 lbs (03/13/09) with PCP Resolved Problems Problem Noted Date Resolved Date Aneurysm 04/04/2022 05/13/2022 Immunizations Name Administration Dates Next Due Moderna Covid-19 ([place] Cloth Sewer 100mcg) Vaccine 04/13/2021, 2020 Td, adult 11/16/2005 Social History Tobacco Use Types Packs/Day Years Used Date Smoking Tobacco: Every Day Cigarettes 0.5 Smokeless Tobacco: Never Tobacco Cessation: Ready to Quit: Yes; C ounseling Given: Yes Alcohol Use Standard Drinks/Week Comments Yes 7 (1 standard drink = 0.6 oz pure alcoho l) Sex Assigned at Date Recorded Female 12/12/2021 11:37 AM EST Last Filed Vital Signs Vital Sign Reading [...] Mass Index 26.78 05/20/2022 8:11 AM EDT Plan of Treatment Upcoming Encounters Date Type Specialty Care Team Description 11/21/2022 Appointment Radiology Gricel Stoddard, TOSHIA [facility] [place] [address] (Wo rk) Health Maintenance Due Date Last Done Comments Hepatitis B vaccine (0-59 yrs) (1 of 3 - 1975 3-dose series) Pneumococcal Vaccine: At-Risk 5-64yrs (1 - 1982 PCV) HIV screen 1994 Hepatitis C Screening 1994 Lipid Screening 1994 Tdap adult 1995 HPV test 2006 PAP Smear 2006 Tetanus vaccine 11/16/2015 11/16/2005 Breast Cancer Share Decision Needed 2016 Covid-19 Vaccine (3 - Booster for Moderna 06/08/20212020, 03/16/2021 series) Influenza (Flu) vaccine (1 of 1 - 07/14/2022 Influenza standard series) Diabetes Screening (HgbA1C or Glucose) 01/28/2025 2 Colonoscopy 05/20/2032 05/20/2022, 05/20/2022 Medical Devices Implanted Type Area Line Patroller Device Shelf Model / Identifier Expiration Date Ser ial / Lot Coil Embo Flow Diverter Pipeline 4.0x18mm Cocr Non Coa nena [id number]/04/2022 IMPLANTS [employer] 12/03/2023 [id number] / Implanted: Qty: 1 on 04/04/2022 by Sary Bloom MD - [employer] / [id number] Description: Right paraclinoid ICA aneur ysm Insurance Payer Benefit Plan / Subscriber ID Effective Dates Phone Addre ss Type Group MVP MVP [place] [id number] 2017-Present [phone] [address] [place] [address] Advance Directives Latest Code Status on File Code Status Date Activated Date Inactivated Comments Attempt Cardiopulmonary Resuscitation - 04/04/2022 3:54 PM 022 3:52 PM Inpatient Question Answer Comments Code Status decision made by: Patient Code Status History Code Status Date Activated Date Inactivated Comments Attempt Cardiopulmonary Resuscitation - 04/04/2022 11:35 AM 2021 3:54 PM Inpatient Question Answer Comments Code Status decision made by: Patient Attempt Cardiopulmonary Resuscitation - 01/28/2022 10:18 AM 2021 4:38 AM Inpatient Question Answer Comments Code Status decision made by: Patient Care Teams Operations Assistant Relationship Specialty Start Date End Date Odalys Escobar APRN PCP - General Family Medicine 11/26/20 [address] [place] [address]
--- OUTSIDE RECORDS SUMMARY | 2022-10-04 12:22 | XMS_ITS | Encounter Summary ---
:1975 Author Organization [facility] [place] [address] Care Team Providers Name Role Phone LuzOdalys TOSHIA Primary Care Provider Reason for Visit Auth/Cert Specialty Diagnoses / Procedures Referred By Contact Refer red To Contact Diagnoses Nausea Poor appetite Weight loss Diarrhea chronic nausea, poor appetite, unintentional weight loss and chronic diarrhea. Please biopsy to rule out celiac, IBD/microscopic colitis Subhash Luna MD [facility] Procedures PRO UPPER GI ENDOSCOPY, DIAGNOSTIC PRO COLONOSCOPY, DIAGNOSTIC PRO UPPER GI ENDOSCOPY, BIOPSY PRO UP GI ENDOSCOPY, REMV TUMOR, SNARE PRO COLONOSCOPY, REMV LESN, SNARE PRO COLONOSCOPY, BIOPSY PRO ANESTH, UGI ENDOSCOPY NOS [facility] PRO ANESTH, LWR INTESTINE, N OS EGD, UPPER GI ENDOSCOPY COLONOSCOPY, DIAGNOSTIC [place] [address] Referral ID Status Reason Start Date Expiration Date Visits Requ ested Visits Authorized [id number] 1 1 Encounter Details Date Type Department Care Team Description 05/20/2022 [place]esthesia [place] [facility] [place] [facility] [place] [address] [facility] Alyx Johnson CRNA [facility] [place] [address] [place] [address] Anesthesia Record Procedure Summary Procedure Name Responsible Anesthesia Start Anesthesia Stop Time Anesthesiologist Time EGD WITH BIOPSY Dayanara Ball MD 05/20/22 0924 05/20/22 0958 (WRVU 2.49) (Trunk) Events Date Time Event Comment 05/20/2022 0924 AN Verify 0924 Start 0924 An Start Data 0928 An Induction 0929 Break/Relief In I assumed care f or Break Relief before which we: 1. Identifie d the patient 2. Identified the responsible provider(s) 3. Reviewed the pertinent medica l history 4. Discussed the surgical plan an d course 5. Reviewed intra-op anesthesia manag ement and issues during anesthesia 6. Se t expectations for the relief (and/or post-pro cedure) period 7. Allowed opportunity for questions and acknowledgement of understanding Emerson Grey CRNA 0931 Anesthesia Ready 0932 0954 an stop data 0958 Recovery or ICU Handoff Patient care was transferred to the destination unit staff after review of the patient's medica l history, current anesthetic/surgi joyce status and plan, according to the Provider Handoff Checklist. 0958 Stop Name Total Midazolam 2 mg Propofol 50 mg Propofol INF 209.55 mg Dexmedetomidine 12 mcg Lactated Ringers 300 mL Agents Name O2 Auxiliary Flowmeter 1 Blood No blood administrations on file. Lines, Drains, and Airways Type Details Placement Removal Incision 01/28/22; 1121; Right, 01/28/22 1121 by Rosario, anterior; wrist; Abiel Le RN non-laparascopic puncture PIV 05/20/22; 0827; basilic 05/20/22 0827 by Lavell, 05/20/22 1047 by vein (medial side of arm)Joanie RN Greel ey, Carol, RN right; [id number] catheter system; Anatomical Landmarks; US Not Used; 22 gauge; Yogesh Monte RN; distraction; 1; median vein (underside of arm), right; no longer indicated, removed per policy/procedure, catheter/device intact; 05/20/22; 1047 documented in this encounter Social History Tobacco Use Types Packs/Day Years Used Date Smoking Tobacco: Every Day Cigarettes 0.5 Smokeless Tobacco: Never Alcohol Use Standard Drinks/Week Comments Yes 7 (1 standard drink = 0.6 oz pure alcoho l) Sex Assigned at Date Recorded Female 12/12/2021 11:37 AM EST documented as of this encounter OR Notes Anesthesia Postprocedure Evaluation - Dayanara Ball MD - 05/20/2022 1:33 PM EDT Department of Anesthesiology Post-procedure Note Patient: Franchesca Dickson Procedure Summary Date: 05/20/22 Room / Location: [facility] ENDO 6 / [facility] ENDOSCOPY Anesthesia Start: 923 Anesthesia Stop: 957 Procedures: EGD WITH BIOPSY (WRVU 2.49) (N/A Trunk) COLONOSCOPY FLEXIBLE, WITH BX (WRVU 3.66) (N/A Trunk) Diagnosis: Persistent depressive disorder Bipolar affective disorder, remission status unspecified Diarrhea, unspecified type Irritable bowel syndrome with diarrhea Bloating Poor appetite Early satiety Unintentional weight loss (chronic nausea, poor appetite, unintentional weight loss and chronic diarrhea. Please biopsy to rule out celiac, IBD/microscopic colitis) Surgeons: Subhash Luna MD Responsible Provider: Dayanara Ball MD Anesthesia Type: MAC ASA Status: 2 All Anesthesia Providers: Anesthesiologist: Dayanara Ball MD GENERAL HANDLING SUPERVISOR: Alyx Mcintosh CRNA Vitals Value Taken Time BP 118/74 05/20/22 1040 Temp Pulse 57 05/20/22 0957 Resp 18 05/20/22 1040 SpO2 98 % 05/20/22 1042 Pain Level 0 05/20/22 1040 Vitals shown include unvalidated device data. Patient Location: PACU/SDP Level of Consciousness: Conscious but Sleepy Pain Management: Satisfactory Analgesia PONV: None Cardiovascular Status: At Baseline and Hemodynamically Stable Respiratory Status: Stable Respiratory Status and Supplemental O2 (NC or FM) Postoperative Fluid Status: Intravascular EUvolemia Possible Anesthetic Complications: NONE apparent at time of evaluation Final Primary Anesthesia Type: MAC (The anesthetic type performed was the same as planned.) Comments: Anesthesia Preprocedure Evaluation - Dayanara Ball MD - 05/20/2022 9:26 AM EDT Images from the original note were not included. Pre-Anesthesia Evaluation for: Franchesca Dickson a 46 y.o. female. Procedure(s): EGD, UPPER GI ENDOSCOPY COLONOSCOPY, DIAGNOSTIC Patient Active Problem List Diagnosis Date Noted ??? Right internal carotid artery aneurysm 01/05/2022 ??? Bipolar disorder 05/28/2020 ??? Restless leg syndrome 05/28/2020 ??? Persistent depressive disorder 10/01/2018 ??? CIS - Anxiety/depression ??? CIS - kidney stones ??? CIS - Knee arthritis ??? CIS - Obesity ??? CIS - subclinical hyperthyroidism 2006 No past medical history on file. Past Surgical History: Procedure Laterality Date ??? CREATED BY INTERFACE x2 in 1997 and 2000 Procedure Date: Unknown ??? IR ARTERIOGRAM CEREBRAL 01/28/2022 IR Arteriogram Cerebral 01/28/2022 Sary Bloom MD [facility] INTERVENTIONL RAD ??? IR EMBOLIZATION CEREBRAL 04/04/2022 IR Embolization Cerebral 04/04/2022 Sary Bloom MD [facility] INTERVENTIONL RAD ??? PRO PERM OCCLUSION/EMBOLIZATION, PERCUT, CONCRETE BLOCK LAYER N/A 04/04/2022 @TRANSCATHETER OCCLUSION/EMBOLIZATION FOR TUMOR DESTRUCTION performed by Sary Bloom MD at [facility] RAO Social History Tobacco Use ??? Smoking status: Current Every Day Smoker Packs/day: 0.50 ??? Smokeless tobacco: Never Used Substance Use Topics ??? Alcohol use: Yes Alcohol/week: 7.0 standard drinks Types: 7 Cans of beer per week Social History Substance and Sexual Activity Drug Use Yes ??? Frequency: 7.0 times per week ??? Types: Marijuana Comment: smokes a bowl a night Allergies Allergen Reactions ??? Shellfish Containing Products Anaphylaxis Per pt, she has received contrast dye in CT with no adverse reactions ??? Erythromycin ??? Erythromycin Base CIS - Nausea/Vomiting ??? Paroxetine Hcl CIS - PALPITATIONS, INSOMNIA ??? Sulfa (Sulfonamide Antibiotics) CIS - Hives ??? Sulfur ??? Tree Nut Rash Medications: MAR and/or home medications have been reviewed. Physical Exam: Preprocedure Vitals Current as of 05/20/22 0924 BP: 118/83 Pulse: 71 Resp: 18 SpO2: 99 Temp: 36.9 ??C (98.4 ??F) Height: 154 cm (5' 0.63) (05/20/22) Weight: 63.5 kg (140 lb) (05/20/22) BMI: 26.77 IBW: 47 kg (103 lb 8.1 oz) Last edited 05/20/22 08 by BD Airway Assessment: Mallampati: II TM distance: >3 FB Neck ROM: full Cardiovascular Assessment: system normal Pulmonary Assessment: unlabored breathing Dental Assessment: Comment: Diffuse tooth decay and discoloration Misc Assessment: Last Filed Perioperative Cognitive Screening None Anesthesia Plan: ASA 2 MAC, with a(n) intravenous induction 46 y.o. female s/f EGD, colo for nausea and diarrhea PMHx: mood (alprazolam, methylphenidate, topiramate, olanzapine), pain (pregabalin), s/p ICA aneurysm coiling spring 2021 (clopidogrel), palpitations (propranolol) Allergies: -- Shellfish Containing Products -- Anaphylaxis -- Per pt, she has received contrast dye in CT with no adverse reactions -- Erythromycin -- Erythromycin Base -- CIS - Nausea/Vomiting -- Paroxetine Hcl -- CIS - PALPITATIONS, INSOMNIA -- Sulfa (Sulfonamide Antibiotics) -- CIS - Hives -- Sulfur -- Tree Nut -- Rash Social Hx: no EtOH, no Tobacco, no Marijuana ROS negative for GERD, CP, SOB, dizziness. Notes and labs reviewed. Patient personally seen and examined. We discussed benefits, indications, and risks of anesthesia (including but not limited to sore throat, dental injury, nerve injury, possible/prolonged intubation, cardiac, pulmonary, or neurologic event). Risk and benefits of sedation discussed with patient. All efforts will be made to keep patient comfortable and in an unaware sedated state; however, due to the nature of sedation it is possible to hearpeople talking during the procedure and to be aware of surroundings. Patient instructed to inform our team of any needs or discomforts while with us today. Plan MAC, standard ASA monitors, adequate PIV access. Dayanara Ball MD Region - Other Informed Consent: Anesthetic plan and risks discussed with patient. Plan discussed with GENERAL HANDLING SUPERVISOR. Anesthesia Screening documented in this encounter Plan of Treatment Upcoming Encounters Date Type Specialty Care Team Description 11/21/2022 Appointment Radiology Gricel Stoddard APRN [place], [place] [address] (Wo rk) documented as of this encounter Visit Diagnoses Not on filedocumented in this encounter Administered Medications Inactive Administered Medications - up to 3 most recent administrations Medication Order MAR Action Action Date Dose Rate Site dexmedeTOMIDine (Precedex) (4 Given 05/20/2022 9:29 AM EDT 12 mc g mcg/mL) bolus injection (Anesthsia) Intravenous, PRN, Starting on Mon05/20/22 at 0929, Until Mon05/20/22 at 0958, Anesthesia Intra-op, Routine lactated ringers infusion New Bag 05/20/2022 9:24 AM EDT Intravenous, CONTINUOUS PRN, Starting on Mon05/20/22 at 0924, Until Mon05/20/22 at 0958, Anesthesia Intra-op midazolam (pf) (Versed) (1 mg/mL) multi-dose Given 05/20/2022 9: 24 AM EDT 2 mg injection Intravenous, PRN, Starting on Mon05/20/22 at 0924, Until Mon05/20/22 at 0958, Anesthesia Intra-op, Routine propofoL (Diprivan) (10 Rate/Dose 05/20/2022 9:42 100 mcg/kg/min 38. 1 mL/hr mg/mL) infusion Change AM EDT Intravenous, CONTINUOUS PRN, Starting on Mon05/20/22 at 0928, Until Mon05/20/22 at 0958, Anesthesia Intra-op, Routine New Bag 05/20/2022 9:28 AM EDT 200 mcg/kg/min 76.2 mL/hr propofoL (Diprivan) 10 mg/mL bolus injection Given 9:28 AM EDT 50 mg (Anesthesia) Intravenous, PRN, Starting on Mon05/20/22 at 0928, Until Mon05/20/22 at 0958, Anesthesia Intra-op documented in this encounter Care Teams Melt House Supervisor Relationship Specialty Start Date End Date Odalys Escobar APRN PCP - General Family Medicine 11/26/20 [address] [place] [address] documented as of this encounter
--- OUTSIDE RECORDS SUMMARY | 2022-10-04 12:22 | XMS_ITS | Encounter Summary ---
:1975 Author Organization [facility] [place] [address] Care Team Providers Name Role Phone LuzOdalys TOSHIA Primary Care Provider Encounter Details Date Type Department Care Team Description 04/07/2022 Telephone Neurosurgery at [facility] [place] Katie Haney, [place] [address] Social History Tobacco Use Types Packs/Day Years Used Date Smoking Tobacco: Every Day Cigarettes 0.5 Smokeless Tobacco: Never Alcohol Use Standard Drinks/Week Comments Yes 7 (1 standard drink = 0.6 oz pure alcoho l) Sex Assigned at Date Recorded Female 12/12/2021 11:37 AM EST documented as of this encounter Miscellaneous Notes Telephone Encounter - Katie Haney RN - 04/07/2022 9:06 AM EDT Franchesca Dickson 1975 46 y.o. [id number] F/U call s/p EMBOLIZATION OF RIGHT ICA ANEURYSM 04/04/22 Date of discharge: 04/05 Date of call: 04/07 Neuro: alert and oriented: yes Dizzy or lightheaded: denies Numbness/tingling/weakness: denies Ambulation: normal Vision: normal Speech: clear Hearing: normal Incision: R groin looks fine Pain: No pain PO: normal B&B: a bit of diarrhea but has IBS, voiding normally Sleep: sleeping well at night documented in this encounter Plan of Treatment Upcoming Encounters Date Type Specialty Care Team Description 11/21/2022 Appointment Radiology Gricel Stoddard APRN [facility] [place] [id number] (Wo rk) documented as of this encounter Visit Diagnoses Not on filedocumented in this encounter Care Teams Belt Polisher Relationship Specialty Start Date End Date Odalys Escobar APRN PCP - General Family Medicine 11/26/20 [address] [place] [address] documented as of this encounter
--- OUTSIDE RECORDS SUMMARY | 2022-10-04 12:22 | XMS_ITS | Encounter Summary ---
:1975 Author Organization [facility] [place] [address] Care Team Providers Name Role Phone Odalys Escobar APRN Primary Care Provider Reason for Referral Diagnostic Test (Routine) - Authorized Specialty Diagnoses / Procedures Referred By Contact Refer red To Contact Radiology Diagnoses Right internal carotid artery aneurysm Gricel Stoddard APRN [facility] Interventionl Rad Procedures [place] [address] [place] [address] Referral ID Status Reason Start Expiration Visits Visits Date Date Requested Authorized [id number] Authorized Specialty 05/13/2022 2023 1 1 Service Requested Encounter Details Date Type Department Care Team Description 05/13/2022 Orders Only Neurosurgery at [facility] [place] Gricel Stoddard Right internal [facility] RN VASCULAR carotid artery [facility] [place] [address] [address] [phone] NEUROSURGERY [place], [place] [address] Social History Tobacco Use Types Packs/Day Years Used Date Smoking Tobacco: Every Day Cigarettes 0.5 Smokeless Tobacco: Never Alcohol Use Standard Drinks/Week Comments Yes 7 (1 standard drink = 0.6 oz pure alcoho l) Sex Assigned at Date Recorded Female 12/12/2021 11:37 AM EST documented as of this encounter Plan of Treatment Upcoming Encounters Date Type Specialty Care Team Description 11/21/2022 Appointment Radiology Gricel Stoddard APRN [facility] NEUROSURGERY [place] [address] (Wo rk) Scheduled Orders Name Type Priority Associated Diagnoses Order S chedule IR Arteriogram Cerebral Imaging Routine Right internal ca rotid Expected: 2022, artery aneurysm Expires: 11/2022 Platelet count Lab Routine Right internal carotid Exp ected: 2022, artery aneurysm Expires: 11/2022 documented as of this encounter Visit Diagnoses Diagnosis Right internal carotid artery aneurysm Cerebral aneurysm, nonruptured documented in this encounter Care Teams Dynamometer Tester Relationship Specialty Start Date End Date Odalys Escobar APRN PCP - General Family Medicine 11/26/20 [address] [place] [address] documented as of this encounter
--- OUTSIDE RECORDS SUMMARY | 2022-10-04 12:22 | XMS_ITS | Encounter Summary ---
:1975 Author Organization [facility] Address [address] [place] [address] Care Team Providers Name Role Phone LuzOdalys TOSHIA Primary Care Provider Reason for Visit Auth/Cert Specialty Diagnoses / Procedures Referred By Contact Refer red To Contact Diagnoses Right internal carotid artery aneurysm RIGHT INTERNAL CAROTID ARTERY ANEURYSM Procedures PRO PERM OCCLUSION/EMBOLIZATION, PERCUT, TEXTILE BROKER @TRANSCATHETER OCCLUSION/EMBOLIZATION FOR TUMOR DESTRUCTION Referral ID Status Reason Start Date Expiration Date Visits Requ ested Visits Authorized [id number] 1 1 Encounter Details Date Type Department Care Team Description 04/04/2022 Surgery [facility] Sary Henderson MD @TRANSCATHETER [facility] OCC LUSION/EMBOLIZATION [place] [address] NEUROSURGERY [phone] [place], [place] [address] (Wo rk) Social History Tobacco [...] Sign Reading Time Taken Comments Blood Pressure 109/62 04/04/2022 10:55 AM EDT Pulse 69 04/04/2022 10:55 AM EDT Temperature 36.2 ??C (97.2 ??F) 04/04/2022 10:55 AM EDT Respiratory Rate 18 04/04/2022 10:55 AM EDT Oxygen Saturation 97% 04/04/2022 10:55 AM EDT Inhaled Oxygen Concentration - - Weight 67.4 kg (148 lb 9.6 oz) 04/04/2022 10:55 AM EDT Height 154.9 cm (5' 0.98) 04/04/2022 10:55 AM EDT Body Mass Index 28.09 04/04/2022 10:55 AM EDT documented in this encounter Discharge Summaries Marisel Herbert PA - 04/04/2022 4:02 PM EDT Patient Name: Franchesca Dickson Patient Age: 46 y.o. Admit date: 04/04/2022 Discharge Date and Time: 04/05/22 11:58 AM Attending Physician: Sary Bloom MD Discharging Provider: JACOBY Hawkins Discharging Service: NEUROSURGERY Operations/Major Procedures: Procedure(s) (LRB): @TRANSCATHETER OCCLUSION/EMBOLIZATION FOR TUMOR DESTRUCTION (N/A) EMBOLIZATION OF RIGHT ICA ANEURYSM 04/04/22 Active Hospital Problems: Active Hospital Problems Diagnosis ??? Aneurysm Resolved Hospital Problems No resolved problems to display. Active Non Hospital Problems: Active Non-Hospital Problems Diagnosis ??? Right internal carotid artery aneurysm ??? Bipolar disorder ??? Restless leg syndrome ??? Persistent depressive disorder ??? CIS - Anxiety/depression ??? CIS - kidney stones ??? CIS - Knee arthritis ??? CIS - Obesity ??? CIS - subclinical hyperthyroidism History of Presentation: Per review of relevant records Franchesca Dickson is an 46 y.o. female with the above past medical history who presented to the officeof Dr. Sary Bloom with reports of an aneurysm noted during work of chronic psychiatric conditions.On exam, she was noted to be neurologically intact. Radiographic imaging demonstrated a 7mm right paraclinoid ICA aneurysm. An endovascular coil embolization was offered and the patient elected to proceed. She was started on aspirin and plavix. Hospital Course: On 04/04/2022, Franchesca Dickson was admitted to [facility] for coil embolization of the R ICA aneurysm; there were no apparent complications intraoperatively. The incision closed with angioseal. Post-operatively, she was extubated and admitted to the neurosurgical service. She continued on aspirin and plavix.She had oozing from her puncture site which lidocaine was injected helped with the oozing. Home medications were administered during the hospitalization and will be continued after discharge.She understood to take ASA 325mg daily and Plavix 75mg daily. At time of discharge patient is afebrile, neurologically stable, tolerating a regular diet, ambulating independently, voiding spontaneously, and managing pain with oral pain medications. Exam upon day of discharge: Denied SOB or chest pain Alert and oriented x 3 Face symmetrical PERRL EOM intact No pronator drift CRUZ x 4, 5/5 throughout Sensation intact Groin site c/d/i no hematomas felt Important Studies and Lab Data: Labs: Recent Results (from the past 24 hour(s)) APTT Result Value Ref Range PTT 35 25 - 37 sec Studies: No results found. Pending Studies and Lab Data: none Discharge Condition: Good Discharge to: Home Discharge Medications: Your Medications New Medications Dose Details acetaminophen 500 mg Tab Commonly known as: Tylenol Take 2 tablets by mouth every 6 hours as needed for Pain (mild pain (1-3)). 1,000 mg Quantity: 30 tablet Refills: 1 aspirin 325 mg Tab Take 1 tablet by mouth daily. Start taking on: April 06, 2022 325 mg Quantity: 90 tablet Refills: 3 Continued medications with new dosing Dose Details clopidogreL 75 mg Tab Commonly known as: Plavix Take 1 tablet by mouth daily. Start taking on: April 06, 2022 What changed: additional instructions 75 mg Quantity: 90 tablet Refills: 3 Continued medications, unchanged Dose Details ALPRAZolam 1 mg Tab Commonly known as: Xanax Take 1 mg by mouth as needed. 1 mg Refills: 0 methylphenidate 20 mg Tab Commonly known as: RITALIN Take 20 mg by mouth daily. 20 mg Refills: 0 OLANZapine 5 mg Tab Commonly known as: ZyPREXA Take 10 mg by mouth nightly. 10 mg Refills: 0 pantoprazole EC 40 mg Tbec Commonly known as: Protonix Take 40 mg by mouth daily. 40 mg Refills: 0 pregabalin 150 mg Cap Commonly known as: LYRICA Take 150 mg by mouth 2 times daily. 150 mg Refills: 0 propranoloL 10 mg Tab Commonly known as: Inderal TAKE ONE TABLET BY MOUTH TWO TIMES DAILY NEEDED (FOR PALPITATIONS). Quantity: 60 tablet Refills: 1 topiramate 100 mg Tab Commonly known as: Topamax Take 100 mg by mouth nightly. 100 mg Refills: 0 Viibryd 40 mg Tab TAKE 1 TABLET BY MOUTH ONCE DAILY Generic drug: vilazodone Refills: 3 Vraylar 1.5 mg Cap Take 3 mg by mouth daily. Generic drug: cariprazine 3 mg Refills: 0 Updated Allergies/ADRs: Allergies Allergen Reactions ??? Shellfish Containing Products Anaphylaxis Per pt, she has received contrast dye in CT with no adverse reactions ??? Erythromycin ??? Erythromycin Base CIS - Nausea/Vomiting ??? Paroxetine Hcl CIS - PALPITATIONS, INSOMNIA ??? Sulfa (Sulfonamide Antibiotics) CIS - Hives ??? Sulfur ??? Tree Nut Rash Commonly used phone numbers Neuro-oncology [phone] Radiation oncology [phone] Endocrinology [phone] Infectious disease [phone] Neurology [phone] Hematology/Oncology [phone] Plastic Surgery [phone] Trauma/General Surgery [phone] Urology [phone] Instructions Given to Patient at Discharge: Patient Instructions [facility] ENDOVASCULAR TREATMENT OF UNRUPTURED INTRACRANIAL ANEURYSM DISCHARGE INSTRUCTIONS Procedure: Intracranial Embolization of RIGHT ICA aneurysm Puncture Site: femoral artery Date: 04/04/2022 PRESCRIPTION INSTRUCTIONS: Please see the medication reconciliation list on this discharge summary for a current list of your medications. [x] Plavix (clopidogrel) 75mg daily: Please take this medication following treatment of your aneurysm. Your doctor will tell you how long you need to be on this medication at your follow up appointment. [x] Aspirin: Please take an aspirin, 325mg, daily. This is necessary due to the coils that are placed in your aneurysm. -Please contact us if you are having bruising, bleeding from gums or nose, or heartburn/stomach painwhile taking the blood thinners. If you are a diabetic and take Metformin or Janumet, Do not take it for 2 days after the procedure. WHEN TO SEEK MEDICAL CARE: Signs or symptoms of an infection - Fever over 101F - Redness, swelling, or increasing pain around your puncture site - Drainage of pus or blood from your puncture site. If you have any blood from your puncture site, you must hold pressure immediately and call our office Headaches - Headaches that are not relieved with pain medications, progressively worsen, or are severe New neurologic symptoms - New unsteadiness when walking - New weakness or sensory changes to one side of your body - Facial droop - Slurred speech or difficulty speaking - Confusion - Seizure - Any other concerning neurologic symptom Symptoms of a deep venous thrombosis (DVT) or pulmonary embolism (PE): - Swelling/warmth/redness of the leg - Pain in the leg, which can be worse with standing or walking - Chest pain or shortness of breath To help prevent a DVT: - Exercise regularly. Walking, at least several times daily, is helpful. - Ankle pump exercises (like pressing and releasing the gas pedal) should be done regularly. - Keep hydrated with water or other clear liquids (coffee/tea/cola can dehydrate you). - Avoid alcohol and crossing your legs. - Remember not to sit or lay in bed, while awake, for prolonged amounts of time. Avoid straining for bowel movements as you can pop open the clot that has formed on the artery. WOUND CARE: - The puncture site at the top of your thigh can be very tender for a week or two. Avoid soaking in the tub or swimming for 7 days after procedure. - If you develop bulging under the skin or bleeding at the puncture site, put direct pressure on thepuncture site for 15 minutes and call your doctor. If the bleeding persists, reapply pressure, and go to your local Emergency Department. - If you notice a sudden change in the feeling (numbness, tingling and/or pain) of your leg on the side of the puncture call your doctor. - You may develop a bruise at the puncture site. This should go away within a week to 10 days. If a bulge develops after the first three days, call your doctor or the Neurosurgery Department here. Report signs of infection (redness, swelling, discharge, soreness, or fever) to your doctor. - Leave the bandage on for 24-48 hours. You may shower the following day after the procedure. DIET: - You may resume your usual diet. - Drink 6-8 ounces of fluid per hour for the next 8 hours. Avoid alcoholic or caffeinated beverages for 24 hours. ACTIVITY: - You may increase your activities as tolerated. - Restrict strenuous activity (such as running, jumping, jogging, shoveling, heavy lifting, etc.) for at least 2 weeks. - Stair climbing should be kept to a minimum. Do not lift objects heavier than 10-15 pounds for the next 48 hours - Do not drive while taking any narcotic pain medication, if prescribed. FOLLOW UP PLAN: [x] Please follow up in the Neurosurgery Clinic in 4 weeks. Please call the Neurosurgery Office at [phone] if you do not receive a scheduled appointment within two weeks. You will follow-up with: [x] Dr. Bloom Imaging: [x] No imaging required at initial follow up HOW TO REACH NEUROSURGERY Contact your Doctor Office Hours: Monday through Monday, 8am-5pm. Call . On weekends or after office hours: Call [phone] and ask the booster station operator to page the NeurosurgeryResident senior fire protection engineer. IMPORTANT PHONE NUMBERS: Outpatient Nurse (Kirstie Rockwell) Inpatient Nurses Neurosurgical Resident/Advanced Practice Provider On-Call (after 5pm or before 8am) Neurosurgery offices (Monday through Monday between 8am-5pm): Adult Neurosurgery Dr. Reginald Garza Pediatric Neurosurgery Dr. Arabella Rai Advanced Practice Providers Alyson Weaver, Nurse Practitioner (outpatient) Betsy Truong, Physician Cash Manager (inpatient) Mayra Freitas, Nurse Practitioner (inpatient) Sherrie Graf, Nurse Practitioner (inpatient) Marisel Garrett, Physician Cash Manager (inpatient) Marisel Herbert, Physician Cash Manager (inpatient) Jannet Nguyen, Physician Cash Manager (outpatient: spine) Joe Crenshaw, Nurse Practitioner (inpatient/outpatient) Raulito Reza, Physician Cash Manager (outpatient) Sarah Smith, Nurse Practitioner (outpatient: neuro-oncology) * Your surgeon may not be call center analyst, so be ready to tell about yourself and your surgery when you call, especially after hours or on the weekend. JACOBY Hawkins 04/05/2022 documented in this encounter Discharge Instructions Discharge InstructionsLilibeth Lopez RN - 04/04/2022 4:[address] [facility] Interventional Radiology Post Angiography Instructions Procedure: Cerebral angiogram Puncture Site: Right groin Date: 04/04/22 Physician: MD Bloom 1. At home we advise you to rest quietly in bed or on the couch with your hip straight until the next morning. Until the next morning you may get up only to go to the bathroom. 2. Resume your previous diet. Drink 6-8 ounces of fluid per hour for the next 8 hours. Avoid alcoholic or caffeinated beverages for 24 hours. 3. Avoid strenuous activity for the next 48 hours, particularly in the next 24 hours. Stair climbingshould be kept to a minimum. Do not lift objects heavier than 10-15 pounds for the next 48 hours Avoid straining for bowel movements as you can pop open the clot that has formed on the artery. 4. If you develop bulging under the skin or bleeding at the puncture site, put direct pressure on the puncture site for 15 minutes and call your doctor. If the bleeding persists, reapply pressure, and go to your local Emergency Department. 5. If you notice a sudden change in the feeling (numbness, tingling and/or pain) of your leg on the side of the puncture call your doctor. 6. You may develop a bruise at the puncture site. This should go away within a week to 10 days. If abulge develops after the first three days, call your doctor or the Radiology/Vascular Department here. Report signs of infection (redness, swelling, discharge, soreness, or fever) to your doctor. 7. Leave the bandage on for 24-48 hours. You may shower the following day after the procedure. You should NOT swim or tub bathe for [address] for 24 hours after the procedure. Do not sign any important documents or smoke unattended for 24 hours. You may return to work with the above restrictions on . 9. If you have any questions or concerns, please call Interventional Radiology Department at until 6pm. After 6pm, or on weekends or hoildays, call and ask for the residential therapist senior fire protection engineer. 10. If you are a diabetic and take Metformin or Janumet, Do not take it for 2 days after the procedure. XX You have received medication during your procedure to help lesson anxiety and keep you comfortable and which affects judgement and reaction time. We recommend that you do not drive, operate equipment, sign any important documents, or smoke unattended for 24 hours following your procedure. Because of the sedation please be careful on stairs, as you may be unsteady on your feet. You may resume your regular diet as tolerated. IV site -- slight redness, or tenderness is normal, you can use a warm compress. If tenderness and redness increases or foul drainage occurs, please contact your M. D. Revised 08/29/19 Patient InstructionsMoMarisel tellez PA - 04/04/2022 4:[address] [facility] ENDOVASCULAR TREATMENT OF UNRUPTURED INTRACRANIAL ANEURYSM DISCHARGE INSTRUCTIONS Procedure: Intracranial Embolization of RIGHT ICA aneurysm Puncture Site: femoral artery Date: 04/04/2022 PRESCRIPTION INSTRUCTIONS: Please see the medication reconciliation list on this discharge summary for a current list of your medications. [x] Plavix (clopidogrel) 75mg daily: Please take this medication following treatment of your aneurysm. Your doctor will tell you how long you need to be on this medication at your follow up appointment. [x] Aspirin: Please take an aspirin, 325mg, daily. This is necessary due to the coils that are placed in your aneurysm. -Please contact us if you are having bruising, bleeding from gums or nose, or heartburn/stomach painwhile taking the blood thinners. If you are a diabetic and take Metformin or Janumet, Do not take it for 2 days after the procedure. WHEN TO SEEK MEDICAL CARE: Signs or symptoms of an infection - Fever over 101F - Redness, swelling, or increasing pain around your puncture site - Drainage of pus or blood from your puncture site. If you have any blood from your puncture site, you must hold pressure immediately and call our office Headaches - Headaches that are not relieved with pain medications, progressively worsen, or are severe New neurologic symptoms - New unsteadiness when walking - New weakness or sensory changes to one side of your body - Facial droop - Slurred speech or difficulty speaking - Confusion - Seizure - Any other concerning neurologic symptom Symptoms of a deep venous thrombosis (DVT) or pulmonary embolism (PE): - Swelling/warmth/redness of the leg - Pain in the leg, which can be worse with standing or walking - Chest pain or shortness of breath To help prevent a DVT: - Exercise regularly. Walking, at least several times daily, is helpful. - Ankle pump exercises (like pressing and releasing the gas pedal) should be done regularly. - Keep hydrated with water or other clear liquids (coffee/tea/cola can dehydrate you). - Avoid alcohol and crossing your legs. - Remember not to sit or lay in bed, while awake, for prolonged amounts of time. Avoid straining for bowel movements as you can pop open the clot that has formed on the artery. WOUND CARE: - The puncture site at the top of your thigh can be very tender for a week or two. Avoid soaking in the tub or swimming for 7 days after procedure. - If you develop bulging under the skin or bleeding at the puncture site, put direct pressure on thepuncture site for 15 minutes and call your doctor. If the bleeding persists, reapply pressure, and go to your local Emergency Department. - If you notice a sudden change in the feeling (numbness, tingling and/or pain) of your leg on the side of the puncture call your doctor. - You may develop a bruise at the puncture site. This should go away within a week to 10 days. If a bulge develops after the first three days, call your doctor or the Neurosurgery Department here. Report signs of infection (redness, swelling, discharge, soreness, or fever) to your doctor. - Leave the bandage on for 24-48 hours. You may shower the following day after the procedure. DIET: - You may resume your usual diet. - Drink 6-8 ounces of fluid per hour for the next 8 hours. Avoid alcoholic or caffeinated beverages for 24 hours. ACTIVITY: - You may increase your activities as tolerated. - Restrict strenuous activity (such as running, jumping, jogging, shoveling, heavy lifting, etc.) for at least 2 weeks. - Stair climbing should be kept to a minimum. Do not lift objects heavier than 10-15 pounds for the next 48 hours - Do not drive while taking any narcotic pain medication, if prescribed. FOLLOW UP PLAN: [x] Please follow up in the Neurosurgery Clinic in 4 weeks. Please call the Neurosurgery Office at [phone] if you do not receive a scheduled appointment within two weeks. You will follow-up with: [x] Dr. Bloom Imaging: [x] No imaging required at initial follow up HOW TO REACH NEUROSURGERY Contact your Doctor Office Hours: Monday through Monday, 8am-5pm. Call . On weekends or after office hours: Call [phone] and ask the booster station operator to page the NeurosurgeryResident senior fire protection engineer. IMPORTANT PHONE NUMBERS: Outpatient Nurse (Kirstie Rockwell) Inpatient Nurses Neurosurgical Resident/Advanced Practice Provider On-Call (after 5pm or before 8am) Neurosurgery offices (Monday through Monday between 8am-5pm): Adult Neurosurgery Dr. Reginald Garza Pediatric Neurosurgery Dr. Arabella Rai Advanced Practice Providers Alyson Weaver, Nurse Practitioner (outpatient) Betsy Truong, Physician Cash Manager (inpatient) Mayra Freitas, Nurse Practitioner (inpatient) Sherrie Graf, Nurse Practitioner (inpatient) Marisel Garrett, Physician Cash Manager (inpatient) Marisel Herbert, Physician Cash Manager (inpatient) Jannet Nguyen, Physician Cash Manager (outpatient: spine) Joe Crenshaw, Nurse Practitioner (inpatient/outpatient) Raulito Reza, Physician Cash Manager (outpatient) Sarah Smith, Nurse Practitioner (outpatient: neuro-oncology) * Your surgeon may not be call center analyst, so be ready to tell about yourself and your surgery when you call, especially after hours or on the weekend. documented in this encounter Medications at Time [...] mg Take 1 mg by mouth 0 07/0 04/2019 Tablet as needed. OLANZapine (ZYPREXA) 5 mg Take 10 mg by mouth 0 0 05/28/2019 Tablet nightly. documented as of this encounter Progress Notes Maia Reed RN - 04/05/2022 1:12 PM EDT 04/05/22 1308 Patient Belongings at Discharge Belongings Returned to Patient/Family Clothing;Electronic devices Clothing Shirt;Pants;Undergarments (Comment);Footwear Patient Electronics Cell phone;Executive Services Administrator Medications at Discharge Medications Returned to Patient/Family None to return Patient Belongings Return Verification Belongings at Bedside - Verified Returned to Patient/Family Yes Pt discharged to home with , avs reviewed with pt and verbalized understandin, vs/neuro status wnl on dc. Maia Reed RN Maia Reed RN - 04/05/2022 1:12 PM EDT Chica Reich RN - 04/05/2022 2:00 AM EDT OUTCOME EVALUATION NOTE: OUTCOME SUMMARY: A&Ox4, perrla, moving all extremities, strength 5/5. Vital signs stable, afebrile. Garcia catheter discontinues @ 0500, ambulating to the bathroom with SBA. NS infusing @ 100 mL/hr. Groin site intact, no drainage, no tenderness. Bed alarm on, purposeful hourly rounding, safety maintained. PLAN MOVING FORWARD: Q2h Neuro Q2h vitals Q4h I&O Possible discharge Thursday 04/05 [facility] GOAL OUTCOME EVALUATION: Continue with plan of care Hoda Miles RN - 04/04/2022 8:22 PM EDT 1899: Report received from CHANTELLE Almanzar. Care assumed. Patient resting in bed. Appears comfortable. Converses appropriately. Denies pain and nausea. Tolerating ice chips and sips of water. Neurological assessment intact to pre-op baseline. 2015: Labs drawn and sent. 2030: POC ACT 114, neurosurgery team notified 2315: Report called to CHANTELLE Posada in NSCU. Jenelle Navarro RN - 04/04/2022 4:52 PM EDT Pt arrived to PACU from OR in bed. Attached to monitors and alarms set appropriately. Superficial R groin site oozing on arrival, Syvek applied. 2+ DP pulse in R foot. Dr. Bloom at bedside. Pt updated on procedure. Groin assessed. No new orders. 2 hr PACU stay. 1715: Groin dressing soaked through despite syvek, no hematoma. Pressure held for 10 min with continued slow oozing. Neurosurgery paged. Sandbag placed on R groin. 1740: Neurosurgery resident at bedside, pressure applied to groin. No new orders. 1800: R groin continuing to ooze, NS paged. Pressure held. 1830: IR fellow at bedside. Oozing stopped. New syvek and dressing applied. 1900: R groin site CDI, no oozing. Report given to CHANTELLE Drummond. documented in this encounter H&P Notes Sary Bloom MD - 04/04/2022 11:36 AM EDT INTERVENTIONAL RADIOLOGY FOCUSED H&P and PRE-PROCEDURE NOTE: PCP: Odalys Escobar APRN Referring Provider: Gricel Stoddard Planned Procedure: Flow diversion treatment of R ICA aneurysm Procedure Indication: R ICA aneurysm Presenting Diagnosis/ Complaint: Franchesca Dickson is a 46 y.o. female with incidental right ICA aneurysm. She is currently smoking cigarettes. Patient was offered surgery for flow-diversion treatment ofthe aneurysm given her age, aneurysm size and Past Medical/Surgical History: Patient Active Problem List Diagnosis Code ??? CIS - Anxiety/depression ??? CIS - kidney stones ??? CIS - Knee arthritis ??? CIS - Obesity ??? CIS - subclinical hyperthyroidism ??? Persistent depressive disorder F34.1 ??? Bipolar disorder F31.9 ??? Restless leg syndrome G25.81 ??? Right internal carotid artery aneurysm I67.1 History reviewed. No pertinent past medical history. Past Surgical History: Procedure Laterality Date ??? CREATED BY INTERFACE x2 in 1997 and 2000 Procedure Date: Unknown ??? IR ARTERIOGRAM CEREBRAL 01/28/2022 IR Arteriogram Cerebral 01/28/2022 Sary Bloom MD [facility] INTERVENTIONL RAD Medications: No current facility-administered medications on file prior to encounter. Current Outpatient Medications on File Prior to Encounter Medication Sig Dispense Refill ??? pregabalin (LYRICA) 150 mg Capsule Take 150 mg by mouth 2 times daily. ??? clopidogreL (Plavix) 75 mg Tablet Take 1 tablet by mouth daily. Start 10 days prior to aneurysm procedure. 90 tablet 3 ??? methylphenidate (RITALIN) 20 mg Tablet Take 20 mg by mouth daily. ??? propranoloL (Inderal) 10 mg Tablet TAKE ONE TABLET BY MOUTH TWO TIMES DAILY NEEDED (FOR PALPITATIONS). 60 tablet 1 ??? pantoprazole EC (Protonix) 40 mg Tablet, Delayed Release (E.C.) Take 40 mg by mouth daily. ??? cariprazine (Vraylar) 1.5 mg Capsule Take 3 mg by mouth daily. ??? topiramate (Topamax) 100 mg Tablet Take 100 mg by mouth nightly. ??? VIIBRYD 40 mg Tablet TAKE 1 TABLET BY MOUTH ONCE DAILY 3 ??? ALPRAZolam (XANAX) 1 mg Tablet Take 1 mg by mouth as needed. ??? OLANZapine (ZYPREXA) 5 mg Tablet Take 10 mg by mouth nightly. Allergies: Shellfish containing products, Erythromycin, Erythromycin base, Paroxetine hcl, Sulfa (sulfonamide antibiotics), Sulfur, and Tree nut Social History and Habits: Social History Socioeconomic History ??? Marital status: Spouse name: Not on file ??? Number of children: Not on file ??? Years of education: Not on file ??? Highest education level: Not on file Occupational History ??? Not on file Tobacco Use ??? Smoking status: Current Every Day Smoker Packs/day: 0.50 ??? Smokeless tobacco: Never Used Vaping Use ??? Vaping Use: Never used Substance and Sexual Activity ??? Alcohol use: Yes Alcohol/week: 7.0 standard drinks Types: 7 Cans of beer per week ??? Drug use: Yes Frequency: 7.0 times per week Types: Marijuana Comment: smokes a bowl a night ??? Sexual activity: Not on file Other Topics Concern ??? Not on file Social History Narrative ??? Not on file Social Determinants of Health Financial Resource Strain: Not on file Food Insecurity: Not on file Transportation Needs: Not on file Physical Activity: Not on file Housing Stability: Not on file Significant Family History: History reviewed. No pertinent family history. Pertinent ROS: as per HPI Labs: Lab Results Component Value Date WBC 10.8 (H) 01/28/2022 HCT 45.8 01/28/2022 PLATELET 354 01/28/2022 INR 0.9 01/28/2022 BUN 18 01/28/2022 CREATININE 0.84 01/28/2022 K 4.1 01/28/2022 Physical Exam: No acute distress Awake, Alert, Interactive Pupils equal and reactive Extraocular movements intact No drift Moving all extremities with full strength Assessment: 46 y.o. female with incidental R ICA aneurysm. Here for flow- diversion treatment Plan: Consent obtained; proceed with treatment with flow diversion. Continue ASA and Plavix x 6 months. 04/04/2022 documented in this encounter Miscellaneous Notes Care Management Discharge - Cassie Metzger RN - 04/05/2022 1:51 PM EDT CARE MANAGEMENT FINAL DISCHARGE NOTE Chart reviewed, care reviewed with primary team and at interdisciplinary rounds. Patient is medically ready for discharge to home Needs for Transition of Care: Plan for discharge is: Home w/o Services Outpatient Agency/Support Group Needs: None Agency Referrals & Follow-up Care: Transportation: family or friend will provide David Functional status prior to admission: Independent Home Environment: Others in the home: spouse. Current Living Arrangements: home/apartment/condo. Accessibility Concerns:4 ZEESHAN then all one level. Current Functional Ability: Independent DME used at home: none DME Needed at Discharge: Patient is insured through: Primary Insurance: MVP Payor: MVP / Plan: MVP [place] / Product Type: *No Product type* / Secondary Insurance: N/A Prescription Coverage: Yes This plan was formulated with input from patient, David, and team. All are in agreement with plan. Conrado Metzger RN BSN CM Neurology Etl TesterPolicy Specialist of Care Management Pager [phone] Initial Assessments - Cassie Metzger RN - 04/05/2022 11:36 AM EDT Office of Care Management Initial Assessment Medical record reviewed. Plan of care and patient status discussed with direct care Registered Nurseand/or Care Team in multidisciplinary rounds. Reason for Hospitalization: procedure Last COVID test: Present on Admission: ??? Aneurysm Hospitalizations Within the Past 30 Days: no previous admission in last 30 days Patient receiving hospital care under Inpatient status. Admission order reviewed. Primary Insurance on file: [facility] Secondary Insurance on file:@ Primary care provider on file: Odalys Escobar, [employer] VESSEL OPERATOR [phone] Pharmacy: [id number] - [address] [address] Advance Care Planning: Attempt Cardiopulmonary Resuscitation - Inpatient <no information> -Advanced Directive: No, declines Current Functional Ability: Independent Functional Status Prior to Admission: Independent Home Environment: Others in the home: spouse. Current Living Arrangements: home/apartment/condo. Accessibility Concerns:4 ZEESHAN then all one level. Current DME: [id number] [facility] [address] Social & Family Supports: All names listed below confirmed with patient as current and correct Extended Emergency Contact Information Primary Emergency Contact: YessiDavid Address: [address] [place] [id number] [facility] [place] Relation: Spouse Secondary Emergency Contact: Marissa Santana Address: [address] [place] [id number] [facility] Relation: Mother Current Care Provided by: self Transportation: no concerns Transportation Anticipated: family or friend will provide, car, drives self Assessment: Patient with no apparent RNCM/SW needs at this time. No housing, transportation, insurance, resources concerns identified at this time. Supports in place to achieve a safe post-hospital transition. No identified barriers to accessing necessary care and/or follow-up after discharge. Plan: Patient to d/c to home via car/ when medically ready. Registered Nurse Etl Tester / Singing Teacher will continue to follow patient???s progress and remain available if situation changes for coordination of care, psychosocial support and/or discharge planning. Office of Care Management Conrado Metzger RN BSN CM Neurology Etl TesterPolicy Specialist of Care Management Pager [phone] Brief Op Note - Sary Bloom MD - 04/04/2022 3:40 PM EDT Brief Operative Note Patient Name: Franchesca Dickson : [id number] MR#: [id number] Case Date: 04/04/2022 Surgeon: Surgeon(s) and Role: * Sary Bloom MD - Primary Preoperative diagnosis: RIGHT INTERNAL CAROTID ARTERY ANEURYSM Postoperative diagnosis: Same Procedure(s) (LRB): @TRANSCATHETER OCCLUSION/EMBOLIZATION FOR TUMOR DESTRUCTION (N/A) R femoral artery ultrasound guided access Groin closure with 6Fr Angioseal Anesthesia: General Findings: 8x7mm R paraclinoid ICA aneurysm; Evidence of flow diversion and contrast stasis in aneurysm post-PED deployment Complications: None Disposition: awakened from anesthesia, extubated and taken to the recovery room in a stable condition, having suffered no apparent untoward event. Condition: doing well without problems (Please see the Surgical Encounter Summary for any Implant and Specimen details pertinent to this patient.) Surgical Infection Prevention Bundle Used? N/A documented in this encounter Plan of Treatment Upcoming Encounters Date Type Specialty Care Team Description 11/21/2022 Appointment Radiology Griecl Stoddard APRN [facility] [place] [id number] (Wo rk) documented as of this encounter Procedures Procedure Name Priority Date/Time Associated Comments Diagnosis HC PARTIAL STAT 04/04/2022 9:17 PM Results f or this THROMBOPLASTIN TIME EDT procedur e are in the results section. @TRANSCATHETER 04/04/2022 12:40 RIGHT INTERNAL OCCLUSION/EMBOLIZATION PM EDT CAROTID ARTERY FOR TUMOR DESTRUCTION ANEURYSM HC P2Y12 ANTIPLATELET Routine 04/04/2022 10:43 Right internal Results for this ASSAY (VERIFYNOW) AM EDT carotid artery procedur e are in aneurysm the results section. documented in this encounter Results APTT (04/04/2022 9:17 PM EDT) athologist Signature PTT 35 25 - 37 sec [facility] Comment: The PTT is NOT appropriate for heparin m onitoring. Use the Anti-Xa level for heparin monitoring (HEP UFH) or LMWH mon itoring (HEP LMW). A PTT less than 37 seconds generally indicates adequate hem ostasis. Specimen Anatomical Collection Method Collection Time Receive d Time (Source) Location / / Volume Laterality Blood 04/04/2022 9:17 PM 9:17 EDT PM EDT Resulting Agency Comment Spec In Lab Mayra Freitas [employer] VESSEL OPERATOR HEMATOLOGY ORDERABLES Performing Organization Address City/State/[place] [address] P2Y12 Antiplatelet ([facility]) (04/04/2022 10:43 AM EDT) athologist Signature P2Y12 35 PRU [facility] Comment: Test results are reported in P2Y12 react ion units (PRU). PRU is a measure of the degree of inhibition of platelet agg regation in response to P2Y12 inhibitors such as clopidogrel (Plavix), prasugrel (Effient), ticagrelor (Brilinta), ticlopidine (Ticlid). The re ference interval for healthy individuals who are not on a P2Y12 inhib itor is 180-376 PRU. PRU values <180 are evidence for a P2Y12 inhibitor effec t while on the drug. This test is intended to be used as an indication of drug effect in patients on a P2Y12 inhibitor only in conjunction with a josefa velázquez pre-treatment determination. Specimen Anatomical Collection Method Collection Time Receive d Time (Source) Location / / Volume Laterality Blood 04/04/2022 10:43 04/04/2022 AM EDT 11:09 AM EDT Resulting Agency Comment Spec In Lab Gricel Stoddard [facility] ORDERABLES Performing Organization Address City/State/[place] [address] documented in this encounter Visit Diagnoses Not on filedocumented in this encounter Admitting Diagnoses Diagnosis Aneurysm Aneurysm of unspecified site documented in this encounter Administered Medications Inactive Administered Medications - up to 3 most recent administrations Medication Order MAR Action Action Date Dose Rate Site acetaminophen (Tylenol) (32.02 mg/mL) or al liquid 1,000 mg 1,000 mg, Oral, EVERY 6 HOURS PRN, Starting on 03/14 at 1553, Until Mon04/05/22 at 1552, Pain, mild pain (1-3), Maximum dose of acetaminophen is 4000 mg from all sources in 24 hours. When order ed for pain, acetaminophen should be given even when other ordered pain medications are indicated . , Routine acetaminophen (Tylenol) suppository 975 mg 975 mg, Rectal, EVERY 6 HOURS PRN, Starting on 03/14 at 1553, Until Mon04/05/22 at 1552, Pain, mild pain (1-3), Maximum dose of acetaminophen is 4000 mg from all sources in 24 hours. When order ed for pain, acetaminophen should be given even when other ordered pain medications are indicated . , Routine acetaminophen (Tylenol) tablet 1,000 mg Given 04/05/2022 2:34 AM EDT 1,000 mg 1,000 mg, Oral, EVERY 6 HOURS PRN, Starting on Mon04/04/22 at 1553, Until Tu04/05/22 at 1552, Pain, mild pain (1-3), Maximum dose of acetaminophen is 4000 mg from all sources in 24 hours. When ordered for pain, acetaminophen should be given even when other ordered pain medications are indicated. , Routine aspirin tablet 325 mg Given 04/05/2022 9:40 AM EDT 325 mg 325 mg, Oral, DAILY, First dose on Mon04/04/22 at 1615, Until Discontinued, Routine Given 04/04/2022 11:19 PM EDT 325 mg clopidogreL (Plavix) tablet 75 mg Given 04/05/2022 9:40 AM EDT 75 mg 75 mg, Oral, DAILY, First dose on Mon04/04/22 at 1615, Until Discontinued, Routine Given 04/04/2022 11:19 PM EDT 75 mg hydrALAZINE (Apresoline) (20 mg/mL) inje ction 10 mg 10 mg, Intravenous, EVERY 4 HOURS PRN, S tarting on Mon04/04/22 at 1553, Until Mon04/05/22 at 1552, High Blood Pressure, for SBP greater than 180 mmHg. labetaloL (Normodyne) (5 mg/mL) injectio n solution 20-40 mg 20-40 mg, Intravenous, EVERY 10 MIN PRN, 8 doses, Starting on Mon04/04/22 at 1553, Until Mon04/05/22 at 1552, High Blood Pr essure, For systolic blood pressure (SBP) greater than 160 mmHg administer 20 mg, repeat SBP aft er 10 minutes. Repeat administration of 40 mg every 10 minutes for SBP great er than 160 mmHg up to a total dose of 300 mg. Hold for HR less than 50 beats p er minute., Routine lidocaine (Xylocaine) 1% (10 mg/mL) inje ction 3 mg 3 mg (0.3 mL), Subcutaneous, ONCE PRN, 1 dose, Startin g on Mon04/04/22 at 1133, Until Mon04/05/22 at 1552, for discomfort with PIV ins ertion, Routine lidocaine (Xylocaine) 1% (10 mg/mL) inje ction 3 mg 3 mg (0.3 mL), Subcutaneous, ONCE PRN, 1 dose, Startin g on Mon04/04/22 at 1549, Until Mon04/05/22 at 1552, for discomfort with PIV ins ertion, Routine ondansetron (pf) (Zofran) (2 mg/mL) inje ction 4 mg 4 mg, Intravenous, EVERY 8 HOURS PRN, St arting on Mon04/04/22 at 1553, Until Mon04/05/22 at 1552, Nausea sodium chloride 0.9 % (flush) (BD PosiFl ush Normal Saline 0.9) flush 10 mL 10 mL, Intravenous, DAILY PRN, Starting on Mon04/04/22 at 1133, Until Mon04/05/22 at 1552, For use when accessing Implantable Port, Rout ine sodium chloride 0.9 % (flush) (BD PosiFlush Given 04/04/2022 9:0 0 PM EDT 5 mLs Normal Saline 0.9) flush 5 mL 5 mL, Intravenous, 2 TIMES DAILY, First dose on Mon04/04/22 at 1200, Until Discontinued, Routine sodium chloride 0.9 % (flush) (BD PosiFlush Given 04/05/2022 9:4 2 AM EDT 5 mLs Normal Saline 0.9) flush 5 mL 5 mL, Intravenous, 2 TIMES DAILY, First dose on Mon04/04/22 at 2100, Until Discontinued, Routine Given 04/04/2022 9:00 PM EDT 5 mLs sodium chloride 0.9 % (flush) (BD PosiFl ush Normal Saline 0.9) flush 5-20 mL 5-20 mL, Intravenous, EVERY 1 MIN PRN, S tarting on Mon04/04/22 at 1133, Until Mon04/05/22 at 1552, flush, Flush pertains t o all indwelling lines. Flush per protocol found in the job aid using the link prov ided on this medication record., Routine sodium chloride 0.9 % (flush) (BD PosiFl ush Normal Saline 0.9) flush 5-20 mL 5-20 mL, Intravenous, EVERY 1 MIN PRN, S tarting on Mon04/04/22 at 1549, Until Mon04/05/22 at 1552, flush, Flush pertains t o all indwelling lines. Flush per protocol found in the job aid using the link prov ided on this medication record., Routine sodium chloride 0.9% infusion Rate/Dose Verify 04/05/2022 12:00 PM EDT 100 mL/hr 1,000 mL, at 100 mL/hr, Intravenous, CONTINUOUS, Starting on Mon04/04/22 at 1615, Until Mon04/05/22 at 1552, Only if not eating/drinking Rate/Dose Verify 04/05/2022 10:00 AM EDT 100 mL/hr Rate/Dose Verify 04/05/2022 8:00 AM EDT 100 mL/hr documented in this encounter Active and Recently Administered Medications Times are shown in EDT. Scheduled Medication Order 04/03/2022 04/04/2022 04/05/2022 aspirin tablet 325 mg 2319 (Given - Provider: Dara Miles RN) 0940 (Given - Provider: Maia Reed RN) 325 mg, Oral, DAILY, First dose on Mon at 1615, Until Discontinued, Routine clopidogreL (Plavix) tablet 75 mg 2319 ( Given - Provider: Hoda Miles RN) 0940 (Given - Provider: María Salinas N) 75 mg, Oral, DAILY, First dose on Mon at 1615, Until Discontinued, Routine sodium chloride 0.9 % (flush) (BD PosiFlush Normal Saline 0. 9) flush 5 mL 1200 (Due)2100 (Given - Provider: Hoda Miles RN) 0900 (Not Given - Provider: Maia Reed RN - Reason: See comment) 5 mL, Intravenous, 2 TIMES DAILY, First dose on Mon04/04/22 at 1200, Until Discontinued, Routine sodium chloride 0.9 % (flush) (BD PosiFlush Normal Saline 0. 9) flush 5 mL 2100 (Given - Provider: Hoda Miles RN) 0942 (Given - Provider: Maia Reed RN) 5 mL, Intravenous, 2 TIMES DAILY, First dose on Mon04/04/22 at 2100, Until Discontinued, Routine Continuous Medication Order 04/03/2022 04/04/2022 04/05/2022 lactated ringers infusion (CANCELED) 123 0 (New Bag - Provider: Judit Wei CRNA)1410 (Anesthesia Volume Adjustment - Provider: Judit Wei CRNA)1533 (Anesthesia Volume Adjustment - Provider: Judit Wei CRNA) 0148 (Stopped - Provider: Chica Reich RN) 1,000 mL, at 100 mL/hr, Intravenous, CON TINUOUS, Starting on Mon04/04/22 at 1115, Until Mon04/05/22 at 0148, Day of Surgery (Day of Procedure) sodium chloride 0.9% infusion 1718 (New Bag - Pr ovider: Jenelle Navarro RN) 0245 (New Bag - Provider: Chica Reich RN)0800 (Rate/Dose Verify - Provider: Maia Reed RN)1000 (Rate/Dose Verify - Provider: Maia Reed RN)1200 (Rate/Dose Verify - Provider: Maia Reed RN) 1,000 mL, at 100 mL/hr, Intravenous, CON TINUOUS, Starting on Mon04/04/22 at 1615, Until Mon04/05/22 at 1552, Only if not eating/drinking 1201 (Stopped - Provider: Maia Reed RN) PRN Medication Order 04/03/2022 04/04/2022 04/05/2022 acetaminophen (Tylenol) (32.02 mg/mL) oral liquid 1,000 mg(Linke d Group 1) 0234 (See Alternative - Provider: Chica Reich RN) 1,000 mg, Oral, EVERY 6 HOURS PRN, Start ing on Mon04/04/22 at 1553, Until Mon04/05/22 at 1552, Pain, mild pain (1-3), Maximum dose of acetaminophen is 4000 mg from all sources in 24 hours. When ordered for pain, acetaminophen should be given even when other ordered pain medications are indicated. , Routine acetaminophen (Tylenol) suppository 975 mg(Linked Group 1) 0234 (See Alternative - Provider: Chica Reich RN) 975 mg, Rectal, EVERY 6 HOURS PRN, Start ing on Mon04/04/22 at 1553, Until Mon04/05/22 at 1552, Pain, mild pain (1-3), Maximum dose of acetaminophen is 4000 mg from all sources in 24 hours. When ordered for pain, acetaminophen should be given even when other ordered pain medications are indicated. , Routine acetaminophen (Tylenol) tablet 1,000 mg(Linked Group 1) 0234 (Given - Provider: Chica Reich RN) 1,000 mg, Oral, EVERY 6 HOURS PRN, Start ing on Mon04/04/22 at 1553, Until Mon04/05/22 at 1552, Pain, mild pain (1-3), Maximum dose of acetaminophen is 4000 mg from all sources in 24 hours. When ordered for pain, acetaminophen should be given even when other ordered pain medications are indicated. , Routine hydrALAZINE (Apresoline) (20 mg/mL) injection 10 mg 10 mg, Intravenous, EVERY 4 HOURS PRN, S tarting on Mon04/04/22 at 1553, Until Mon04/05/22 at 1552, High Blood Pressure, for SBP greater than 180 mmHg. labetaloL (Normodyne) (5 mg/mL) injection solution 20-40 mg 20-40 mg, Intravenous, EVERY 10 MIN PRN, 8 doses, Starting on Mon04/04/22 at 1553, Until Mon04/05/22 at 1552, High Blood Pressure, For systolic blood pressure (SBP) greater than 160 mmHg administer 20 m g, repeat SBP after 10 minutes. Repeat a dministration of 40 mg every 10 minutes for SBP greater than 160 mmHg up to a total dose of 300 mg. Hold for HR less than 50 beats per minute., Routine lidocaine (Xylocaine) 1% (10 mg/mL) injection 3 mg 3 mg (0.3 mL), Subcutaneous, ONCE PRN, 1 dose, Starting on Mon04/04/22 at 1133, Until Mon04/05/22 at 1552, for discomfort with PIV insertion, Routine lidocaine (Xylocaine) 1% (10 mg/mL) injection 3 mg 3 mg (0.3 mL), Subcutaneous, ONCE PRN, 1 dose, Starting on Mon04/04/22 at 1549, Until Mon04/05/22 at 1552, for discomfort with PIV insertion, Routine ondansetron (pf) (Zofran) (2 mg/mL) injection 4 mg 4 mg, Intravenous, EVERY 8 HOURS PRN, St arting on Mon04/04/22 at 1553, Until Mon04/05/22 at 1552, Nausea sodium chloride 0.9 % (flush) (BD PosiFlush Normal Saline 0.9) f lush 10 mL 10 mL, Intravenous, DAILY PRN, Starting on Mon04/04/22 at 1133, Until Mon04/05/22 at 1552, For use when accessing Implantable Port, Routine sodium chloride 0.9 % (flush) (BD PosiFlush Normal Saline 0.9) f lush 5-20 mL 5-20 mL, Intravenous, EVERY 1 MIN PRN, S tarting on Mon04/04/22 at 1133, Until Mon04/05/22 at 1552, flush, Flush pertains to all indwelling lines. Flush per protocol found in the job aid using the link provided on this medication record., Routine sodium chloride 0.9 % (flush) (BD PosiFlush Normal Saline 0.9) f lush 5-20 mL 5-20 mL, Intravenous, EVERY 1 MIN PRN, S tarting on Mon04/04/22 at 1549, Until Mon04/05/22 at 1552, flush, Flush pertains to all indwelling lines. Flush per protocol found in the job aid using the link provided on this medication record., Routine Linked Groups Order Group 1: acetaminophen (Tylenol) (32.02 mg/mL) oral liquid 1,000 mgJump to med 1,000 mg, Oral, EVERY 6 HOURS PRN, Start ing on Mon04/04/22 at 1553, Until Mon04/05/22 at 1552, Pain, mild pain (1-3)
Maximum dose of acetaminophen is 4000 mg from all sources in 24 hours. When ordered for pain, acetaminophen should b e given even when other ordered pain medications are indicated.
Routine Or acetaminophen (Tylenol) tablet 1,000 mgJump to med 1,000 mg, Oral, EVERY 6 HOURS PRN, Start ing on Mon04/04/22 at 1553, Until Mon04/05/22 at 1552, Pain, mild pain (1-3)
Maximum dose of acetaminophen is 4000 mg from all sources in 24 hours. When ordered for pain, acetaminophen should b e given even when other ordered pain medications are indicated.
Routine Or acetaminophen (Tylenol) suppository 975 mgJump to med 975 mg, Rectal, EVERY 6 HOURS PRN, Start ing on Mon04/04/22 at 1553, Until Mon04/05/22 at 1552, Pain, mild pain (1-3)
Maximum dose of acetaminophen is 4000 mg from all sources in 24 hours. When ordered for pain, acetaminophen should b e given even when other ordered pain medications are indicated.
Routine documented in this encounter Care Teams Head Golf Coach Relationship Specialty Start Date End Date Odalys Escobar APRN PCP - General Family Medicine 11/26/20 [address] [place] [address] documented as of this encounter
--- OUTSIDE RECORDS SUMMARY | 2022-10-04 12:22 | XMS_ITS | Encounter Summary ---
:1975 Author Organization [facility] [place] [address] Care Team Providers Name Role Phone Odalys Escobar APRN Primary Care Provider Reason for Visit Auth/Cert Specialty Diagnoses / Procedures Referred By Contact Refer red To Contact Diagnoses Right internal carotid artery aneurysm RIGHT INTERNAL CAROTID ARTERY ANEURYSM Procedures PRO PERM OCCLUSION/EMBOLIZATION, PERCUT, LEAD ATHLETE @TRANSCATHETER OCCLUSION/EMBOLIZATION FOR TUMOR DESTRUCTION Referral ID Status Reason Start Date Expiration Date Visits Requ ested Visits Authorized [id number] 1 1 Encounter Details Date Type Department Care Team Description 04/04/2022 - Hospital Encounter Neuroscience Special Sary Bloom, Right internal 04/05/2022 Care Unit Debora BLAND carotid artery [facility] [place] [id number] [phone] Social History Tobacco Use Types Packs/Day Years [...] Sign Reading Time Taken Comments Blood Pressure 114/76 04/05/2022 12:00 PM EDT Pulse 73 04/05/2022 12:00 PM EDT Temperature 36.5 ??C (97.7 ??F) 04/05/2022 12:00 PM EDT Respiratory Rate 16 04/05/2022 12:00 PM EDT Oxygen Saturation 99% 04/05/2022 12:00 PM EDT Inhaled Oxygen Concentration - - Weight [...] On 04/04/2022, Franchesca Dickson was admitted to [facility] for coil embolization of the R ICA [...] Nut Rash Commonly used phone numbers Neuro-oncology [phone] Radiation oncology [phone] Endocrinology [phone] Infectious disease [phone] Neurology [phone] Hematology/Oncology [phone] Plastic Surgery [phone] Trauma/General Surgery [phone] Urology [phone] Instructions Given to Patient at Discharge: Patient Instructions [facility] ENDOVASCULAR TREATMENT OF UNRUPTURED INTRACRANIAL ANEURYSM [...] weeks. Please call the Neurosurgery Office at [phone] if you do not receive a scheduled appointment within two weeks. You will follow-up with: [x] Dr. Bloom Imaging: [x] No imaging required at initial follow up HOW TO REACH NEUROSURGERY Contact your Doctor Office Hours: Monday through Monday, 8am-5pm. Call . On weekends or after office hours: Call [phone] and ask the threading machine operator to page the NeurosurgeryResident mutton puncher. IMPORTANT PHONE NUMBERS: Outpatient Nurse (Kirtsie Rockwell) Inpatient Nurses Neurosurgical Resident/Advanced Practice Provider On-Call (after 5pm or before 8am) Neurosurgery offices (Monday through Monday between 8am-5pm): Adult Neurosurgery Dr. Reginald Garza Pediatric Neurosurgery Dr. Arabella Rai Advanced Practice Providers Alyson Weaver, Nurse Practitioner (outpatient) Betsy Truong, Physician Tabulating Machine Mechanic (inpatient) Mayra Freitas, Nurse Practitioner (inpatient) Sherrie Graf, Nurse Practitioner (inpatient) Marisel Garrett, Physician Tabulating Machine Mechanic (inpatient) Marisel Herbert, Physician Tabulating Machine Mechanic (inpatient) Jannet Nguyen Physician Tabulating Machine Mechanic (outpatient: spine) Joe Crenshaw, Nurse Practitioner (inpatient/outpatient) Raulito Reza, Physician Tabulating Machine Mechanic (outpatient) Sarah Smith, Nurse Practitioner (outpatient: neuro-oncology) * Your surgeon may not be manager call center, so be ready to tell about yourself and your surgery when you call, especially after hours or on the weekend. JACOBY Hawkins 04/05/2022 documented in this encounter Discharge Instructions Discharge InstructionsLilibeth Lopez RN - 04/04/2022 4:14 PM EDT [facility] Interventional Radiology Post Angiography Instructions Procedure: [...] or hoildays, call and ask for the outside residential sales professional mutton puncher. 10. If you are a diabetic and [...] contact your M. D. Revised 08/29/19 Patient InstructionsMok, JACOBY Ramirez - 04/04/2022 4:02 PM EDT [facility] ENDOVASCULAR TREATMENT OF UNRUPTURED INTRACRANIAL ANEURYSM [...] weeks. Please call the Neurosurgery Office at [phone] if you do not receive a scheduled appointment within two weeks. You will follow-up with: [x] Dr. Bloom Imaging: [x] No imaging required at initial follow up HOW TO REACH NEUROSURGERY Contact your Doctor Office Hours: Monday through Monday, 8am-5pm. Call . On weekends or after office hours: Call [phone] and ask the threading machine operator to page the NeurosurgeryResident mutton puncher. IMPORTANT PHONE NUMBERS: Outpatient Nurse (Kirstie Rockwell) Inpatient Nurses Neurosurgical Resident/Advanced Practice Provider On-Call (after 5pm or before 8am) Neurosurgery offices (Monday through Monday between 8am-5pm): Adult Neurosurgery Dr. Reginald Garza Pediatric Neurosurgery Dr. Arabella Rai Advanced Practice Providers Alyson Weaver, Nurse Practitioner (outpatient) Betsy Truong, Physician Tabulating Machine Mechanic (inpatient) Mayra Freitas, Nurse Practitioner (inpatient) Sherrie Graf, Nurse Practitioner (inpatient) Marisel Garrett, Physician Tabulating Machine Mechanic (inpatient) Marisel Herbert, Physician Tabulating Machine Mechanic (inpatient) Jannet Nguyen, Physician Tabulating Machine Mechanic (outpatient: spine) Joe Crenshaw, Nurse Practitioner (inpatient/outpatient) Raulito Reza, Physician Tabulating Machine Mechanic (outpatient) Sarah Smith, Nurse Practitioner (outpatient: neuro-oncology) * Your surgeon may not be manager call center, so be ready to tell about yourself [...] devices Clothing Shirt;Pants;Undergarments (Comment);Footwear Patient Electronics Cell phone;Coffee Roaster Medications at Discharge Medications Returned to Patient/Family [...] IR Arteriogram Cerebral 01/28/2022 Sary Bloom MD [facility] INTERVENTIONL RAD Medications: No current facility-administered [...] plan. Conrado Metzger RN BSN CM Neurology Program Director Group WorkCaterer'S Aide of Care Management Pager [phone] Initial Assessments - Cassie Metzger RN - [...] Admission order reviewed. Primary Insurance on file: MVP Secondary Insurance on file:@ Primary care provider on file: Odalys Escobar, TRESTLE MECHANIC [phone] Pharmacy: [facility] [address] Advance Care Planning: Attempt Cardiopulmonary Resuscitation - Inpatient <no information> -Advanced Directive: No, declines Current Functional Ability: Independent Functional Status Prior to Admission: Independent Home Environment: Others in the home: spouse. Current Living Arrangements: home/apartment/condo. Accessibility Concerns:4 ZEESHAN then all one level. Current DME: [address] [facility] [address] Social & Family Supports: All names listed below confirmed with patient as current and correct Extended Emergency Contact Information Primary Emergency Contact: YessiDavid lehman Address: [address] [place] [id number] [facility] Mobile Relation: Spouse Secondary Emergency Contact: Marissa Santana Address: [address] [place] [id number] [place] Relation: Mother Current Care Provided by: self [...] via car/ when medically ready. Registered Nurse Program Director Group Work / Batting Machine Operator Insulation will continue to follow patient???s progress and remain available if situation changes for coordination of care, psychosocial support and/or discharge planning. Office of Care Management Conrado Metzger NET WEB APPLICATION DEVELOPER CM Neurology Program Director Group WorkCaterer'S Aide of Care Management Pager [phone] Brief Op Note - Sary Bloom MD - 04/04/2022 3:40 PM EDT Brief Operative Note Patient Name: Franchesca Dickson : [id number] MR#: [id number] Case Date: 04/04/2022 Surgeon: Surgeon(s) and Role: [...] 11/21/2022 Appointment Radiology Gricel Stoddard APRN [facility] [place] [facility] [place] [id number] (Wo rk) documented as of this encounter [...] encounter Results APTT (04/04/2022 9:17 PM EDT) P athologist Signature PTT 35 25 - 37 sec [facility] Comment: The PTT is [...] Agency Comment Spec In Lab Mayra Freitas TRESTLE MECHANIC HEMATOLOGY ORDERABLES Performing Organization Address City/State/[place] [address] [id number] Antiplatelet ([facility]) (04/04/2022 10:43 AM EDT) athologist Signature P2Y12 35 PRU [facility] Comment: Test results are [...] inhibitor only in conjunction with a josefa velázquez, pre-treatment determination. Specimen Anatomical Collection Method Collection Time Receive d Time (Source) Location / / Volume Laterality Blood 04/04/2022 10:43 04/04/2022 AM EDT 11:09 AM EDT Resulting Agency Comment Spec In Lab Gricel Stoddard TRESTLE MECHANIC HEMATOLOGY ORDERABLES Performing Organization Address City/State/ZIP Code Phon e Number [place] [phone] documented in this encounter Visit Diagnoses Diagnosis Right internal carotid artery aneurysm Cerebral aneurysm, nonruptured Aneurysm Aneurysm of unspecified site documented in this encounter Admitting Diagnoses Diagnosis Aneurysm [...] PRN, Starting on Mon04/04/22 at 1553, Until Mon04/05/22 [...] 04/03/2022 04/04/2022 04/05/2022 aspirin tablet 325 mg 231 (Given - Provider: Dara Miles RN) 0940 (Given - Provider: Maia Reed, CHANTELLE) 325 mg, Oral, DAILY, First dose on Mon at 1615, Until Discontinued, Routine clopidogreL (Plavix) tablet 75 mg 231 ( Given - Provider: Hoda Miles RN) 0940 (Given - Provider: María Salinas) 75 mg, Oral, DAILY, First dose on [...] Reed RN)1000 (Rate/Dose Verify - Provider: Maia Reed, RN)1200 (Rate/Dose Verify - Provider: Maia Reed, CHANTELLE) 1,000 mL, at 100 mL/hr, Intravenous, CON [...] Start ing on Mon04/04/22 at 1553, Until Tu04/05/22 at 1552, Pain, mild pain (1-3)
Maximum dose of acetaminophen is 4000 mg from all sources in 24 hours. When ordered for pain, acetaminophen should b e given even when other ordered pain medications are indicated.
Routine documented in this encounter Care Teams Area Development Consultant Relationship Specialty Start Date End Date Odalys Escobar APRN PCP - General Family Medicine 11/26/20 [address] [place] [address] documented as of this encounter
--- OUTSIDE RECORDS SUMMARY | 2022-10-04 12:23 | XMS_ITS | Encounter Summary ---
:1975 Author Organization [facility] [place] [address] Care Team Providers Name Role Phone Odalys Escobar APRN Primary Care Provider Encounter Details Date Type Department Care Team Description 11/26/2020 Laboratory Lab [address] [place] [address] Social History Tobacco Use Types Packs/Day Years Used Date Smoking Tobacco: Every Day Cigarettes 1 Smokeless Tobacco: Never Sex Assigned at Date Recorded Female 12/12/2021 11:37 AM EST documented as of this encounter Plan of Treatment Upcoming Encounters Date Type Specialty Care Team Description 11/21/2022 Appointment Radiology Gricel Stoddard APRN [place], [place] [address] (Wo rk) documented as of this encounter Procedures Procedure Name Priority Date/Time Associated Diagnosis Comme nts HC TOTAL T3 Routine 11/26/2020 11:52 Subclinical Results for this AM EST hyperthyroidism procedure ar e in the results section. HC THYROID Routine 11/26/2020 11:52 Subclinical Results for this STIMULATING AM EST hyperthyroidism procedure ar e in HORMONE, SERUM the results section. HC FREE THYROXINE Routine 11/26/2020 11:52 Subclinical Result s for this (T4) AM EST hyperthyroidism procedure ar e in the results section. documented in this encounter Results T4, free (11/26/2020 11:52 AM EST) P athologist Signature Free T4 1.15 0.93 - 1.70 [facility] ng/dL [facility] Specimen Anatomical Collection Method Collection Time Receive d Time (Source) Location / / Volume Laterality Blood specimen 11/26/2020 11:52 1 (specimen) AM EST 12:24 PM EST Resulting Agency Comment Spec In Lab Chris Gonzales MD CHEMISTRY ORDERABLES Performing Organization Address City/[facility]/ZIP Code Phon e Number [address] T3 Total (11/26/2020 11:52 AM EST) athologist Signature T3, Total 99 75 - 170 [facility] Specimen Anatomical Collection Method Collection Time Receive d Time (Source) Location / / Volume Laterality Blood specimen 11/26/2020 11:52 1 (specimen) AM EST 12:24 PM EST Resulting Agency Comment Spec In Lab Chris Gonzales MD CHEMISTRY ORDERABLES Performing Organization Address City/[facility]/ZIP Code Phon e Number [address] TSH (11/26/2020 11:52 AM EST) athologist Signature TSH 0.37 0.27 - 4.20 PHUONG DODSON mcIU/mL [facility] Specimen Anatomical Collection Method Collection Time Receive d Time (Source) Location / / Volume Laterality Blood specimen 11/26/2020 11:52 1 (specimen) AM EST 12:24 PM EST Resulting Agency Comment Spec In Lab Chris Gonzales MD CHEMISTRY ORDERABLES Performing Organization Address City/[facility] [place] [address] documented in this encounter Visit Diagnoses Diagnosis Subclinical hyperthyroidism Thyrotoxicosis without mention of goiter or other cause, without mention of thyrotoxic crisis or storm documented in this encounter Care Teams Detective Narcotics And Vice Relationship Specialty Start Date End Date Odalys Escobar APRN PCP - General Family Medicine 11/26/20 [address] [place] [address] documented as of this encounter
--- OUTSIDE RECORDS SUMMARY | 2022-10-04 12:23 | XMS_ITS | Encounter Summary ---
:1975 Author Organization [place] [address] Care Team Providers Name Role Phone Malgorzata Orellana APRN Primary Care Provider Encounter Details Date Type Department Care Team Description 06/14/2019 Telephone Endocrinology at [facility] Medardo Samuels, [place] [address] Social History Tobacco Use Types Packs/Day Years Used Date Smoking Tobacco: Every Day Cigarettes 1 Smokeless Tobacco: Never Sex Assigned at Date Recorded Female 12/12/2021 11:37 AM EST documented as of this encounter Miscellaneous Notes Telephone Encounter - Medardo Gayle RN - 06/14/2019 1:34 PM EDT Called pt and left message on home phone. Then called cell phone and spoke to pt. She said she should be home around the time Dr Lucas is hoping to be calling her. Telephone Encounter - Medardo Gayle RN - 06/14/2019 12:22 PM EDT Pt called and left voicemail that she needed to talk to either Dr Salinas or Dr Lucas regarding her thyroid testing results. She reports her Psychiatrist is getting a little worried about her depression and bipolar and is wondering if the thyroid results could possibly have any impact on these or not. documented in this encounter Plan of Treatment Upcoming Encounters Date Type Specialty Care Team Description 11/21/2022 Appointment Radiology Gricel Stoddard APRN [place], [place] [address] (Wo rk) documented as of this encounter Visit Diagnoses Not on filedocumented in this encounter Care Teams Spa Coordinator Relationship Specialty Start Date End Date Malgorzata Orellana APRN PCP - General Internal Medicine 03/22/19 10/13/20 [address] [place] [address] documented as of this encounter
--- OUTSIDE RECORDS SUMMARY | 2022-10-04 12:23 | XMS_ITS | Encounter Summary ---
:1975 Author Organization [facility] [place] [address] Care Team Providers Name Role Phone Malgorzata Orellana APRN Primary Care Provider Encounter Details Date Type Department Care Team Description 04/16/2020 Telephone Endocrinology at [facility] Ashly Jaquez, [place] [address] ENDOCRINOLOGY DEPT [phone] [place], [place] [address] (Wo rk) Social History Tobacco Use Types Packs/Day Years Used Date Smoking Tobacco: Every Day Cigarettes 1 Smokeless Tobacco: Never Sex Assigned at Date Recorded Female 12/12/2021 11:37 AM EST documented as of this encounter Miscellaneous Notes Telephone Encounter - Ashly Lucas DO - 04/16/2020 3:22 PM EDT Endocrinology Follow up Call Follow up call placed to Franchesca regarding most recently thyroid studies (in scanned documents demonstrating a TSH of 6.82 mcIU/mL (elevated) and free t4 0.67 ng/dl (decreased). At that point it was recommended to discontinue Methimazole 2.5 mg daily and repeat labs in 2 weeks at [facility]. She was agreeable to this plan. Ashly Lucas DO, PGY6 Endocrinology, Diabetes and Metabolism Fellow 04/16/2020 3:24 PM Pager #[phone] documented in this encounter Plan of Treatment Upcoming Encounters Date Type Specialty Care Team Description 11/21/2022 Appointment Radiology Gricel Stoddard APRN [place] [address] (Wo rk) documented as of this encounter Visit Diagnoses Diagnosis Hyperthyroidism Thyrotoxicosis without mention of goiter or other cause, without mention of thyrotoxic crisis or storm documented in this encounter Care Teams Sap Business Analyst Relationship Specialty Start Date End Date Malgorzata Orellana APRN PCP - General Internal Medicine 03/22/19 10/13/[address] [place] [address] documented as of this encounter
--- OUTSIDE RECORDS SUMMARY | 2022-10-04 12:23 | XMS_ITS | Encounter Summary ---
:1975 Author Organization [place] [address] Care Team Providers Name Role Phone Odalys Escobar APRN Primary Care Provider Reason for Referral Diagnostic Test (Routine) - Closed Specialty Diagnoses / Procedures Referred By Contact Refer red To Contact Radiology Diagnoses Cerebral aneurysm, nonruptured Gricel Stoddard APRN [facility] Interventionl Rad Procedures [place] [address] [place] [address] Referral ID Status Reason Start Date Expiration Date Visits V isits Requested Authorized [id number] Closed Specialty 01/28/2022 11/12/2022 1 1 Service Requested Reason for Visit Diagnostic Test (Routine) - Closed Specialty Diagnoses / Procedures Referred By Contact Refer red To Contact Radiology Diagnoses Cerebral aneurysm, nonruptured Gricel Stoddard APRN [facility] Interventionl Rad Procedures [place] [address] [place] [address] Referral ID Status Reason Start Date Expiration Date Visits V isits Requested Authorized [id number] Closed Specialty 01/28/2022 11/12/2022 1 1 Service Requested Encounter Details Date Type Department Care Team Description 01/28/2022 Hospital Encounter Radiology at [facility] Gricel Stoddard, Right internal carotid arter y aneurysm; [facility] 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3 ??F) 01/28/2022 12:31 PM EDT Respiratory Rate 16 01/28/2022 2:45 PM EDT Oxygen Saturation 98% 01/28/2022 3:11 PM EDT Inhaled Oxygen Concentration - - Weight - - Height - - Body Mass Index - - documented in this encounter Discharge Instructions Discharge InstructionsRaulito Galindo RN - 01/28/2022 11:17 AM EDT [facility] Interventional Radiology Radial Artery Instructions Procedure: Cerebral Angiogram Puncture Site: Right radial artery Date: 01/28/2022 Physician: Dr. Bloom 1. At home we advise you to rest quietly in bed or on the couch until the next morning. You may get up and walk around but keep your activity to a minimum. DO NOT USE WRIST OF AFFECTED SIDE TO PUSH YOURSELF UP IN BED OR CHAIR TO SHIFT POSITION FOR 12 HOURS POST PROCEDURE. 2. Resume your previous diet. Drink 6-8 ounces of fluid per hour for the next 8 hours. Avoid alcoholic or caffeinated beverages for 24 hours. If you are a diabetic and take Metformin or Janumet or the combination med's that include Metformin, DO NOT take for 2 days after the procedure. 3. Avoid strenuous activity for the next 48 hours, particularly in the next 24 hours. Do not lift anything for the next 48 hours or engage in any sports activity for 48 hours. You may engage in sexual activity after 48 hours. Problems to watch for: 1. If you develop bleeding at the puncture site, put direct pressure on the site for 15 minutes and call your doctor. Call for help. If the bleeding persists, reapply firm pressure, call 911 for an ambulance and go to your local Emergency Department. 2. If you notice a sudden change in the feeling (numbness, tingling and/or pain) of your hand on theside of the puncture call your doctor. 3. You may develop a bruise and swelling at the catheter insertion site. If you develop a bulge, youmay have bleeding inside. Contact your doctor or the Radiology/Vascular Department here. Report signs of infection (redness, swelling, discharge, soreness, or fever) to your doctor. 4. Leave the bandage on for 24-48 hours. A little spot of blood at the catheter insertion site is normal. A small lump or bruise under the skin is normal. They generally disappear in 3-4 days. You may shower the following day after the procedure. You should NOT swim or tub bathe for 48 hours. 5. Expect some mild tenderness over the catheter insertion area. You will notice this after the local anesthetic wears off. This should improve during the 24-48 hours after the procedure. Take tylenol if needed. Contact your doctor is the discomfort worsens. 6. Watch for signs for infection at the catheter site for the first few days at home. Signs include:Redness, swelling with increased soreness, yellow, green or brown fowl smelling drainage. If you think you may have these symptoms, take your temperature, then call your doctor. 7. You have received medication during your procedure to help lessen anxiety and keep you comfortable and which affects judgement and reaction time. We recommend that you do not drive, operate equipment, sign any important documents, or smoke unattended for 24 hours following your procedure. Because of the sedation please be careful on stairs, as you may be unsteady on your feet. You may return to [facility] with the above restrictions on . The limb where the catheter was inserted should look and feel normal in color, sensation, and temperature. If your arm/hand becomes cool, pale, blue or changing color with numbess and tingling, CALL YOUR DOCTOR. If you have any questions or concerns, please call Interventional Radiology Department at until 6pm. After 6pm, or on weekends or hoildays, joyce and ask for the resident physician in radiology installation and repair technician. OR Peripheral IV site -- slight redness, or tenderness is normal, you can use a warm compress. If tenderness and redness increases or foul drainage occurs, please contact your M. D. Revised 08/29/19 documented in this encounter Medications at Time of Discharge Medication Sig Dispensed Refills Start Date End Date ALPRAZolam (Xanax) 1 mg Take 1 mg by mouth 0 Tablet daily. Extended release methylphenidate (RITALIN) Take 20 mg by mouth [...] documented as of this encounter Progress Notes Raulito Galindo RN - 01/28/2022 1:52 PM EDT 1352 - Dr. Bloom given telephone report of sequence of events. Raulito Galindo RN - 01/28/2022 1:26 PM EDT 1326 - Dr. Murphy Maldonado at the bedside and has evaluated the patient. No new orders. Raulito Galindo RN - 01/28/2022 1:16 PM EDT 1316 - Dr. Murphy Maldonado responded and telephone report given re: right wrist concerns, ie: weak pulses, cool temp and mild duskiness increase compared to the left hand as well as pain level. Raulito Galindo RN - 01/28/2022 1:13 PM EDT 1313 - Dr. Murphy Maldonado paged Raulito Galindo RN - 01/28/2022 12:55 PM EDT 1253 - Dr. Bloom paged. Raulito Galindo RN - 01/25/2022 11:08 AM EDT ANGIO NURSING DATABASE Name: ROBERT BACH Date of : 1975 AGE: 46 y.o. Address: [address] [place] [id number] (home) Mobile: Telephone Information: Referring Provider: Gricel Stoddard REASON FOR VISIT: Order Questions Answers Where will study be performed? [facility] Radiology [120] Is the patient on anticoagulant / antiplatelet therapy ? No Reason for exam and clinical history: DERRICK aneurysm Is the patient ? Unknown Does patient require sedation? IV Please ensure a History and Physical exam is completed within 30 days of the Radiology Procedure OK No data recorded Allergies Allergen Reactions ??? Erythromycin ??? Erythromycin Base CIS - Nausea/Vomiting ??? Paroxetine Hcl CIS - PALPITATIONS, INSOMNIA ??? Sulfa (Sulfonamide Antibiotics) CIS - Hives ??? Sulfur ??? Tree Nut Rash Pertinent PMH: Patient Active Problem List Diagnosis Code ??? CIS - Anxiety/depression ??? CIS - kidney stones ??? CIS - Knee arthritis ??? CIS - Obesity ??? CIS - subclinical hyperthyroidism ??? Persistent depressive disorder F34.1 ??? Bipolar disorder F31.9 ??? Restless leg syndrome G25.81 ??? Right internal carotid artery aneurysm I67.1 Date/Procedure Meds Given/Comments 01/28/2022 Cerebral angiogram Fentanyl 50 mcg IV, Versed 1 mg IV Heparin 3000 units IA, Nitro 200mcg IA, Verapamil 2.5mg IA 1054 to procedure room 1 via stretcher. Onto table supine. All monitors, O2, safety strap in place. Meds per protocol. TR BAND REMOVAL TIME ARRIVED IN RECOVERY ROOM:1230 TIME TR BAND APPLIED: 1216 12cc air TIME REMOVAL STARTED: 1300 2cc air removed @1255 2cc air removed @1305 2cc air removed @1315 2cc air removed @1325 2cc air removed @1335 2cc air removed @1345 TIME TR BAND REMOVED AND DRESSING APPLIED: 1345 Evaluate site for bleeding every 15 minutes X 4 after TR Band removal. 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 All questions/concerns addressed. Laboratory Results: documented in this encounter H&P Notes Jah Maldonado MD - 01/28/2022 10:15 AM EDT Images from the original note were not included. Neuro Interventional Procedure H&P 01/28/2022 Robert Bach [id number] 1975 CC: DSA for ICA aneurysm HPI/Indication: Robert Bach is a 46 y.o. female presents for scheduled elective DSA. All questions answered. No complaints. Denies headache, nausea, vomiting, numbness, weakness, paresthesias, LOC, seizures, difficulties with balance, visual or auditory symptoms. Denies bowel or bladder symptoms. Procedure: Cerebral angiogram No past medical history on file. Allergies Allergen Reactions ??? Shellfish Containing Products Anaphylaxis Per pt, she has received contrast dye in CT with no adverse reactions ??? Erythromycin ??? Erythromycin Base CIS - Nausea/Vomiting ??? Paroxetine Hcl CIS - PALPITATIONS, INSOMNIA ??? Sulfa (Sulfonamide Antibiotics) CIS - Hives ??? Sulfur ??? Tree Nut Rash Recent Results (from the past 72 hour(s)) P2Y12 Antiplatelet ([facility] Result Value Ref Range P2Y12 158 PRU APTT Result Value Ref Range PTT 35 25 - 37 sec Prothrombin Time Result Value Ref Range PT 10.3 9.4 - 12.5 sec INR 0.9 Basic Metabolic Panel (non-fasting) Result Value Ref Range Glucose Lvl 116 65 - 199 mg/dL BUN 18 8 - 18 mg/dL Creatinine 0.84 0.70 - 1.20 mg/dL Sodium 142 135 - 145 mmol/L Potassium 4.1 3.5 - 5.0 mmol/L Chloride 109 (H) 98 - 107 mmol/L CO2 21 (L) 22 - 31 mmol/L Anion Gap 12 5 - 15 mmol/L Calcium 9.0 8.5 - 10.5 mg/dL Estimated GFR 84 >=60 mL/min/1.73 m?? Hemogram Result Value Ref Range WBC 10.8 (H) 4.0 - 9.5 x10(3)/mcL RBC 4.65 4.00 - 5.21 x10(6)/mcL Hemoglobin 15.4 11.7 - 15.5 g/dL Hematocrit 45.8 35.7 - 45.8 % MCV 98.5 (H) 82.6 - 94.4 fL MCH 33.1 (H) 27.1 - 32.0 pg MCHC 33.6 31.7 - 35.0 g/dL Platelets 354 145 - 357 x10(3)/mcL RDWSD 50.1 (H) 37.0 - 46.0 fL RDWCV 13.6 11.5 - 14.1 % MPV 10.0 7.6 - 12.9 fL nRBC % Auto 0.0 % nRBC Abs Auto 0.000 0.000 - 0.000 x10(3)/mcL Physical exam CV: RRR Lungs: CTA Neuro: AO x 3 Speech fluent EOMI, VFFTC Full strength x 4; no drift Mallampati 1 ASA I Imaging: Consent: Procedure discussed with patient, risks (including stroke, , bleeding in head, bleeding at groid, damage to blood vessels, adverse reaction to medications, oversedation) detailed, and written informed consent obtained. Plan: Cerebral angiogram with moderate sedation. ASA: Mallampati: Jah Maldonado MD documented in this encounter Miscellaneous Notes Brief Op Note - Jah Maldonado MD - 01/28/2022 12:20 PM EDT Brief Operative Note Patient Name: Robert Bach : [id number] MR#: [id number] Case Date: 01/28/2022 Surgeon: Joel Bloom Preoperative diagnosis: R ICA aneurism Postoperative diagnosis:Same DSA Anesthesia: Anesthesia type not filed in the log. Minimal sedation Findings: R ICA aneurism Complications: none Estimated Blood Loss: 10cc Specimens removed during surgery: None Fluids: Intraprocedure Crystalloid Total None PRBCs: none (See Anesthesia Record/Report for Other Blood Products) Urine Output: (no urine output recorded) Drains: none Disposition: aroused from sedation, and taken to the recovery room in a stable condition Condition: doing well without problems (Please see the Surgical Encounter Summary for any Implant and Specimen details pertinent to this patient.) Jah Maldonado MD documented in this encounter Plan of Treatment Upcoming Encounters Date Type Specialty Care Team Description 11/21/2022 Appointment Radiology Gricel Stoddard, [place] [id number] (Wo rk) documented as of this encounter Procedures Procedure Name Priority Date/Time Associated Diagnosis Comme nts HC P2Y12 ANTIPLATELET Routine 01/28/2022 2:15 PM Results for this ASSAY (VERIFYNOW) EDT procedure are in the results section. IR ARTERIOGRAM Routine 01/28/2022 12:26 Cerebral aneurysm, Res ults for this CEREBRAL PM EDT nonruptured procedure are i n the results section. documented in this encounter Results P2Y12 Antiplatelet ([facility]) (01/28/2022 2:15 PM EDT) P athologist Signature P2Y12 222 PRU [facility] Comment: Test results are reported in [...] P2Y12 inhibitor only in conjunction with a bas melania, pre-treatment determination. Specimen Anatomical Collection Method Collection Time Receive d Time (Source) Location / / Volume Laterality Blood 01/28/2022 2:15 PM 2:32 EDT PM EDT Resulting Agency Comment Spec In Lab Gricel L Stoddard HVAC R INSTRUCTOR HEMATOLOGY ORDERABLES Performing Organization Address City/State/[place] [address] IR Arteriogram Cerebral (01/28/2022 12:26 PM EDT) Anatomical Region Laterality Modality X-Ray Angiography Specimen (Source) Anatomical Location Collection Method / Collectio n Time Received Time / Laterality Volume Narrative 02/18/2022 8:22 AM EDT Awaiting images to be uploaded to PACS Refer to eD for procedure note Gricel L Stoddard HVAC R INSTRUCTOR IMG IR ORDERABLES APTT (01/28/2022 7:59 AM EDT) P athologist Signature PTT 35 25 - 37 sec [facility] Comment: The PTT is NOT appropriate for heparin m onitoring. Use the Anti-Xa level for heparin monitoring (HEP UFH) or LMWH mon itoring (HEP LMW). A PTT less than 37 seconds generally indicates adequate hem ostasis. Specimen Anatomical Collection Method Collection Time Receive d Time (Source) Location / / Volume Laterality Blood 01/28/2022 7:59 AM 2 8:17 EDT AM EDT Resulting Agency Comment Spec In Lab Gricel Griffin Stoddard HVAC R INSTRUCTOR HEMATOLOGY ORDERABLES Performing Organization Address [facility] [place] [address] Prothrombin Time (01/28/2022 7:59 AM EDT) athologist Signature PT 10.3 9.4 - 12.5 [facility] LABORATORY INR 0.9 [facility] Comment: An INR <2.0 indicates adequate procoagul ant activity for hemostasis in most patients without underlying bleeding dis orders, though the INR may not adequately reflect hemostatic capacity i n patients with liver disease and synthetic impairment. The recommended ta rget INR range for therapeutic anticoagulation is 2.0 ? 3.0 for most applications, though lower and higher ranges may be appropriate depending on c linical circumstances. Specimen Anatomical Collection Method Collection Time Receive d Time (Source) Location / / Volume Laterality Blood 01/28/2022 7:59 AM 2 8:17 EDT AM EDT Resulting Agency Comment Spec In Lab Gricel Griffin Stoddard HVAC R INSTRUCTOR HEMATOLOGY ORDERABLES Performing Organization Address [facility] [address] (ABNORMAL) Basic Metabolic Panel (non-fasting) (01/28/2022 7:59 AM EDT) athologist Signature Glucose Lvl 116 65 - [address] [facility] mg/dL [facility] Comment: Diabetes: >=200 mg/dL plus symp toms BUN 18 8 - 18 mg/dL [facility] Creatinine 0.84 0.70 - 1.20 mg/dL [facility] Sodium 142 135 - 145 mmol/L [facility] Potassium 4.1 3.5 - 5.0 mmol/L [facility] Comment: Please note: ??Patients with WBC >100,00 0 may have falsely elevated Potassium levels. ??For accurate Potassium quantif ication in these patients send serum separator tube (gold top) for subsequent determinations. ??Contact the Clinical Chemistry Laboratory if there are any qu estions. Chloride 109 (H) 98 - 107 mmol/L [facility] CO2 21 (L) 22 - 31 mmol/L [facility] Anion Gap 12 5 - 15 mmol/L [facility] Calcium 9.0 8.5 - 10.5 mg/dL [facility] Estimated GFR 84 >=60 mL/min/1.73 m?? [facility] Comment: This patient? s estimated glomerular filtration rate (eGFR) is between 84 mL/min/1.73 m2 (patients with less muscl e mass) and 97 mL/min/1.73 m2 (patients with more muscle mass) as determined by the CKD-EPI equation. Assessment of eGFR is not appropriate when creatinine concentrations are rapidly changing. For clinical decisions where creatinine clearance will affect therapy, a 24-hour urine creatinine clearance may b e advised. Assignment of CKD stage 1 - 5 for patien ts with an eGFR near the transition point between stages may be based on cli nical assessment of muscle mass and symptoms in addition to eGFR. Specimen Anatomical Collection Method Collection Time Receive d Time (Source) Location / / Volume Laterality Blood 01/28/2022 7:59 AM 2 8:17 EDT AM EDT Resulting Agency Comment Spec In Lab Gricel Stoddard HVAC R INSTRUCTOR CHEMISTRY ORDERABLES Performing Organization Address City/State/[place] [address] (ABNORMAL) Hemogram (01/28/2022 7:59 AM EDT) Analysis Performed At Patho logist Time Signature WBC 10.8 (H) 4.0 - 9.[address] [facility] x10(3)/[facility] LABORATORY RBC 4.65 4.00 - [facility] 5.21 [facility] x10(6)/[facility] LABORATORY Hemoglobin 15.4 11.7 - [facility] 15.5 g/dL [facility] Hematocrit 45.8 35.7 - [facility] 45.8 % [facility] MCV 98.5 (H) 82.6 - [facility] 94.4 [facility] MCH 33.1 (H) 27.1 - [facility] 32.0 pg [facility] MCHC 33.6 31.7 - [facility] 35.0 g/dL [facility] Platelets 354 145 - [address] [facility] x10(3)/[facility] LABORATORY RDWSD 50.1 (H) 37.0 - [facility] 46.0 [facility]ORATORY RDWCV 13.6 11.5 - [facility] 14.1 % [facility] MPV 10.0 7.6 - 12.9 [facility] LABORATORY nRBC % Auto 0.0 % [facility] nRBC Abs Auto 0.000 0.000 - [facility] 0.000 [facility] x10(3)/[facility] LABORATORY Specimen Anatomical Collection Method Collection Time Receive d Time (Source) Location / / Volume Laterality Blood 01/28/2022 7:59 AM 8:17 EDT AM EDT Resulting Agency Comment Spec In Lab Gricel Elias Richi [facility] HEMATOLOGY ORDERABLES Performing Organization Address City/State/[place] [address] documented in this encounter Visit Diagnoses Diagnosis Right internal carotid artery aneurysm Cerebral aneurysm, nonruptured Cerebral aneurysm, nonruptured documented in this encounter Administered Medications Inactive Administered Medications - up to 3 most recent administrations Medication Order MAR Action Action Date Dose Rate Site fentaNYL (pf) (50 mcg/mL) Given 01/28/2022 11:46 AM EDT 25 mcg multi-dose injection 25-50 mcg 25-50 mcg, Intravenous, EVERY 3 MIN PRN, Starting on Mon01/28/22 at 1018, Until Mon01/28/22 at 1547, Pain, per unit protocol, - Start dose 50 mcg (reduce dose to 25 mcg if history of sedation sensitivity). - Titration dose 25-50 mcg IV, (based on patient response) every 3 minutes PRN, to maintain procedural pain less than 2 per pain Scale. Maximum dose: 50 mcg/dose, 250 mcg/hour For use in Interventional Radiology (IR) only for procedural sedation with direct provider supervision and verbal order., Angio/IR (Intra-Procedure), Routine Given 01/28/2022 11:03 AM EDT 25 mcg heparin (porcine) (1,000 units/mL) Given 01/28/2022 11:22 AM EDT 3,000 Units injection 3,000 Units 3,000 Units, Intra-arterial, ONCE, 1 dose, On Mon01/28/22 at 1045, For radial artery access. For use in Interventional Radiology (IR) only for procedure with direct provider supervision and verbal order., Angio/IR (Intra-Procedure), Routine lidocaine (Xylocaine) 1% (10 mg/mL) injection Given 11:20 AM EDT 10 mg 10 mg 10 mg, Subcutaneous, ONCE, 1 dose, On Mon01/28/22 at 1045, For use in Interventional Radiology (IR) only for procedure with direct provider supervision and verbal order., Angio/IR (Intra-Procedure), Routine midazolam (pf) (Versed) (1 mg/mL) multi-dose Given 11:46 AM EDT 0.5 mg injection 0.5-1 mg 0.5-1 mg, Intravenous, EVERY 3 MIN PRN, Starting on Mon01/28/22 at 1018, Until Mon01/28/22 at 1547, Sleep, - Start dose; 1 mg (Reduce dose to 0.5 mg if history of sedation sensitivity). - Titration dose: 0.5 mg - 1 mg (based on patient response) every 3 minutes PRN to obtain RASS score of -3. Maximum dose: 1 mg per dose, 5 mg/hour. For use in Interventional Radiology (IR) only for procedural sedation with direct provider supervision and verbal order., Angio/IR (Intra-Procedure), Routine Given 01/28/2022 11:03 AM EDT 0.5 mg nitroGLYcerin 100 mcg/mL intracoronary Given 01/28/2022 11:22 AM EDT 200 mcg dilution 200 mcg 200 mcg, Intra-arterial, ONCE, 1 dose, On Mon01/28/22 at 1045, For radial artery access. For use in Interventional Radiology (IR) only for procedure with direct provider supervision and verbal order., Angio/IR (Intra-Procedure), Routine verapamiL (Isoptin) (2.5 mg/mL) Given 01/28/2022 11:22 AM EDT 2. 5 mg 30 mL/hr injection 2.5 mg 2.5 mg, Intra-arterial, ONCE, 1 dose, On Mon01/28/22 at 1045, Administer over 2 Minutes, For radial artery access. For use in Interventional Radiology (IR) only for procedure with direct provider supervision and verbal order., Angio/IR (Intra-Procedure) documented in this encounter Care Teams Tailer Off Relationship Specialty Start Date End Date Odalys Escobar APRN PCP - General Family Medicine 11/26/20 [address] [place] [address] documented as of this encounter
--- OUTSIDE RECORDS SUMMARY | 2022-10-04 12:23 | XMS_ITS | Encounter Summary ---
:1975 Author Organization [facility] [place] [address] Care Team Providers Name Role Phone Odalys Escobar APRN Primary Care Provider Encounter Details Date Type Department Care Team Description 01/28/2022 Telephone Gastroenterology at [facility] [place] [address] Social History Tobacco Use Types Packs/Day Years Used Date Smoking Tobacco: Every Day Cigarettes 0.5 Smokeless Tobacco: Never Alcohol Use Standard Drinks/Week Comments Yes 1 (1 standard drink = 0.6 oz pure alcoho l) 7 a week Sex Assigned at Date Recorded Female 12/12/2021 11:37 AM EST documented as of this encounter Miscellaneous Notes Telephone Encounter - Tania Llanes - 01/28/2022 3:57 PM EDT Called pt regarding 03/09 telehealth visit with Cat. Need to either change to in person that day, or reschedule for telehealth into late March due to current [place] licensure issues. Left message with pt's mom who will have her call us back. documented in this encounter Plan of Treatment Upcoming Encounters Date Type Specialty Care Team Description 11/21/2022 Appointment Radiology Gricel Stoddard APRN [facility] [address] NEUROSURGERY [place], [place] [address] (Wo rk) documented as of this encounter Visit Diagnoses Not on filedocumented in this encounter Care Teams Morning News Producer Relationship Specialty Start Date End Date Odalys Escobar APRN PCP - General Family Medicine 11/26/20 Jez [facility] [place] [address] documented as of this encounter
--- OUTSIDE RECORDS SUMMARY | 2022-10-04 12:23 | XMS_ITS | Encounter Summary ---
:1975 Author Organization [facility] [place] [address] Care Team Providers Name Role Phone Malgorzata Orellana APRN Primary Care Provider Reason for Referral Diagnostic Test (Routine) - Closed Specialty Diagnoses / Procedures Referred By Contact Refer red To Contact Radiology Diagnoses Hyperthyroidism Ashly Lucas, DO [facility] Rad Nuclear Med Procedures NM I-123 Thyroid Imaging w Uptake Radiopharm Admin [facility] [place] [address] [place] [address] Referral ID Status Reason Start Date Expiration Date Visits V isits Requested Authorized [id number] Closed Specialty 06/14/2019 06/13/2020 1 1 Service Requested iagnostic Test (Routine) - Closed Specialty Diagnoses / Procedures Referred By Contact Refer red To Contact Radiology Diagnoses Hyperthyroidism Ashly Lucas, DO [facility] Rad Nuclear Med Procedures NM I-123 Thyroid Imaging w Uptake [facility] [place] [address] [place] [address] Referral ID Status Reason Start Date Expiration Date Visits V isits Requested Authorized [id number] Closed Specialty 06/14/2019 06/13/2020 1 1 Service Requested Encounter Details Date Type Department Care Team Description 06/14/2019 Telephone Endocrinology at [facility] Ashly Jaquez DO [facility] [place] [address] ENDOCRINOLOGY DEPT [phone] [place], [place] [address] (Wo rk) Social History Tobacco Use Types Packs/Day Years Used Date Smoking Tobacco: Every Day Cigarettes 1 Smokeless Tobacco: Never Sex Assigned at Date Recorded Female 12/12/2021 11:37 AM EST documented as of this encounter Miscellaneous Notes Telephone Encounter - Ashly Lucas DO - 06/14/2019 5:23 PM EDT Endocrinology follow up TSH 0.14 mcIU/ml = suppressed TSI <0.10 (<=0.55 IU/L) Free T4 1.26 ng/dL = normal Total 127 ng/dL = normal Called patient regarding recent thyroid studies outlined above. She still appears to be slightly hyperthyroid but exhibits normal free T4 and total T3. Notably, her TSI was negative, indicating this islikely not Graves disease, although there is antibody Graves disease so it remains possible. At this juncture, I would recommend I-123 uptake and scan to further delineate the nature of her thyroid disease. Once her scan is complete, we may consider repeat thyroid studies and starting an antithyroid medication. Ashly Lucas DO, PGY6 Endocrinology, Diabetes and Metabolism Fellow 06/14/2019 5:28 PM Pager #[phone] documented in this encounter Plan of Treatment Upcoming Encounters Date Type Specialty Care Team Description 11/21/2022 Appointment Radiology Gricel Stoddard APRN [place], [place] [address] (Wo rk) documented as of this encounter Results NM I-123 Thyroid Imaging w Uptake (06/25/2019 1:50 PM EDT) Anatomical Region Laterality Modality Nuclear Medicine Specimen (Source) Anatomical Location Collection Method / Collectio n Time Received Time / Laterality Volume Impressions 06/25/2019 4:20 PM EDT Normal thyroid morphology and low end of normal thyroid uptake of 11%. I have personally reviewed the image(s) and the residents interpretation and agree with the findings, Samir Alcantara at 06/25/2019 4:20 PM Thank you for letting us participate in the care of this patient. For questions regarding this report, please contact e number below. ? Electronically signed by: Samir Alcantara [facility] ([phone]), at 06/25/2019 4:20 PM Narrative 06/25/2019 4:20 PM EDT EXAMINATION: NM I-123 THYROID IMAGING W UPTAKE CLINICAL HISTORY: Hyperthyroidism TSI negative (likely not Graves), nodule on left side during US exam TECHNIQUE: I-123 was administered orally in a dose of 11.2 uCi. Twenty four hours later, probe uptake measurement of the thyroid was obtained. Images of the thyroid were obtained in the anterior an d anterior oblique projections using a gamma camera with pinhole collimator. COMPARISON: None FINDINGS: Diffuse tracer uptake within both lobes of the thyroid with no focal hot or cold nodules. 24 hour radioactive iodine uptake is 11. 4% (normal 10 - 25%) Procedure Note Samir Alcantara MD - 06/25/2019Formatti ng of this note might be different from the original. EXAMINATION: NM I-123 THYROID IMAGING W UPTAKE CLINICAL HISTORY: Hyperthyroidism TSI negative (likely not Graves), nodule on left side during US exam TECHNIQUE: I-123 was administered orally in a dose of 11.2 uCi. Twenty four hours later, probe uptake measurement of the thyroid was obtained. Images of the thyroid were obtained in the anterior an d anterior oblique projections using a gamma camera with pinhole collimator. COMPARISON: None FINDINGS: Diffuse tracer uptake within both lobes of the thyroid with no focal hot or cold nodules. 24 hour radioactive iodine uptake is 11. 4% (normal 10 - 25%) IMPRESSION Normal thyroid morphology and low end of normal thyroid uptake of 11%. I have personally reviewed the image(s) and the residents interpretation and agree with the findings, Samir Alcantara at 06/25/2019 4:20 PM Thank you for letting us participate in the care of this patient. For questions regarding this report, please contact e number below. Electronically signed by: Samir Alcantara [facility] ([phone]), at 06/25/2019 4:20 PM Mo PEÑA NM ORDERABLES NM I-123 Thyroid Imaging w Uptake Radiopharm Admin (06/24/2019 1:00 PM EDT) Specimen (Source) Anatomical Location Collection Method / Collectio n Time Received Time / Laterality Volume Narrative [facility] - 06/24/2019 1:01 PM EDT This exam is auto-finalizing. It is for billing only. See paired order for result. Mo PEÑA NM ORDERABLES Performing Organization Address City/State/ZIP Code Phon e Number [place], [place] documented in this encounter Visit Diagnoses Diagnosis Hyperthyroidism Thyrotoxicosis without mention of goiter or other cause, without mention of thyrotoxic crisis or storm Hyperthyroidism Thyrotoxicosis without mention of goiter or other cause, without mention of thyrotoxic crisis or storm Hyperthyroidism Thyrotoxicosis without mention of goiter or other cause, without mention of thyrotoxic crisis or storm documented in this encounter Care Teams Presser Automatic Relationship Specialty Start Date End Date Malgorzata Orellana APRN PCP - General Internal Medicine 03/22/19 10/13/[address] [place] [address] documented as of this encounter
--- OUTSIDE RECORDS SUMMARY | 2022-10-04 12:23 | XMS_ITS | Encounter Summary ---
:1975 Author Organization [facility] [place] [address] Care Team Providers Name Role Phone Malgorzata Orellana APRN Primary Care Provider Encounter Details Date Type Department Care Team Description 07/16/2019 Orders Only Endocrinology at [facility] Ashly Jaquez, [facility] [place] [address] ENDOCRINOLOGY DEPT [phone] [place], [place] [address] (Wo rk) Social History Tobacco Use Types Packs/Day Years Used Date Smoking Tobacco: Every Day Cigarettes 1 Smokeless Tobacco: Never Sex Assigned at Date Recorded Female 12/12/2021 11:37 AM EST documented as of this encounter Plan of Treatment Upcoming Encounters Date Type Specialty Care Team Description 11/21/2022 Appointment Radiology Gricel Stoddard APRN [place], [place] [address] (Wo rk) documented as of this encounter Visit Diagnoses Not on filedocumented in this encounter Care Teams Sap Bi Developer Relationship Specialty Start Date End Date Malgorzata Orellana APRN PCP - General Internal Medicine 03/22/19 10/13/20 [address] [place] [address] documented as of this encounter
--- OUTSIDE RECORDS SUMMARY | 2022-10-04 12:23 | XMS_ITS | Encounter Summary ---
:1975 Author Organization [facility] [place] [address] Care Team Providers Name Role Phone Malgorzata Orellana APRN Primary Care Provider Encounter Details Date Type Department Care Team Description 07/09/2019 Telephone Endocrinology at [facility] Chela Bonilla, [place] [address] Social History Tobacco Use Types Packs/Day Years Used Date Smoking Tobacco: Every Day Cigarettes 1 Smokeless Tobacco: Never Sex Assigned at Date Recorded Female 12/12/2021 11:37 AM EST documented as of this encounter Miscellaneous Notes Telephone Encounter - Chela Lagos RN - 07/09/2019 2:55 PM EDT Playing phone tag with Rosio at [facility]. Telephone Encounter - Chela Lagos RN - 07/09/2019 11:39 AM EDT Received msg from Rosio, triage nurse at [facility] ([phone]), re questions about ptlabs, pt telling her something different than what she sees in [facility]. R/c and had to leave [facility] for Rosio to r/c. documented in this encounter Plan of Treatment Upcoming Encounters Date Type Specialty Care Team Description 11/21/2022 Appointment Radiology Gricel Stoddard APRN [place], [place] [address] (Wo rk) documented as of this encounter Visit Diagnoses Not on filedocumented in this encounter Care Teams Wood And Hardware Outfitter Relationship Specialty Start Date End Date Malgorzata Orellana APRN PCP - General Internal Medicine 03/22/19 10/13/[address] [place] [place] [address] documented as of this encounter
--- OUTSIDE RECORDS SUMMARY | 2022-10-04 12:23 | XMS_ITS | Encounter Summary ---
:1975 Author Organization [facility] [place] [address] Care Team Providers Name Role Phone Odalys Escobar APRN Primary Care Provider Reason for Visit Diagnostic Test (Routine) - Closed Specialty Diagnoses / Procedures Referred By Contact Refer red To Contact Radiology Diagnoses Right internal carotid artery aneurysm Gricel Stoddard, CHIEF ENGINEER DRILLING AND RECOVERY [facility] Interventionl Rad Procedures [place] [address] [place] [address] Referral ID Status Reason Start Date Expiration Date Visits V isits Requested Authorized [id number] Closed Specialty 03/14/2022 11/12/2022 1 1 Service Requested Encounter Details Date Type Department Care Team Description 03/14/2022 Hospital Encounter Radiology at [facility] Gricel Stoddard, Canceled [facility] [place] (D-CANCELLED BY Drive [facility] MEDICAL DEPARTMENT) [facility] [address] [address] NEUROSURGERY [phone] [place] [address] Social History Tobacco Use Types Packs/Day Years Used Date Smoking Tobacco: Every Day Cigarettes 0.5 Smokeless Tobacco: Never Alcohol Use Standard Drinks/Week Comments Yes 1 (1 standard drink = 0.6 oz pure alcoho l) 7 a week Sex Assigned at Date Recorded Female 12/12/2021 11:37 AM EST documented as of this encounter Medications at Time of Discharge Medication Sig Dispensed Refills Start Date End Date ALPRAZolam (Xanax) 1 mg Take 1 mg by mouth 0 Tablet daily. Extended release clopidogreL (Plavix) 75 mg Take 1 tablet by 90 tablet 3 Tablet mouth daily. acetaminophen (Tylenol) Take 2 tablets by 30 tablet 1 04/05 500 mg Tablet mouth every 6 hours as needed for Pain (mild pain (1-3)). aspirin 325 mg Tablet Take 1 tablet by 90 tablet 3 04/06/20 22 mouth daily. pregabalin (LYRICA) 150 mg Take 150 mg by 0 03/01 Capsule mouth 2 times daily. methylphenidate (RITALIN) Take 20 mg by mouth 0 0 12/16/2021 20 mg Tablet daily. propranoloL (Inderal) 10 TAKE ONE TABLET BY 60 tablet 1 mg TabletIndications: MOUTH TWO TIMES Subclinical DAILY NEEDED hyperthyroidism (FOR PALPITATIONS). pantoprazole EC (Protonix) Take 40 mg by mouth 0 40 mg Tablet, Delayed daily. Release (E.C.) cariprazine (Vraylar) 1.5 Take 3 mg by mouth 0 mg Capsule daily. topiramate (Topamax) 100 Take 100 mg by 0 mg Tablet mouth nightly. VIIBRYD 40 mg Tablet TAKE 1 TABLET BY 3 9 MOUTH ONCE DAILY ALPRAZolam (XANAX) 1 mg Take 1 mg by mouth 0 07/0 04/2019 Tablet as needed. OLANZapine (ZYPREXA) 5 mg Take 10 mg by mouth 0 0 05/28/2019 Tablet nightly. clopidogreL (Plavix) 75 mg Take 1 tablet by 90 tablet 3 04/05/2022 Tablet mouth daily. Start 10 days prior to aneurysm procedure. documented as of this encounter Plan of Treatment Upcoming Encounters Date Type Specialty Care Team Description 11/21/2022 Appointment Radiology Gricel Stoddard APRN [place] [address] (Wo rk) documented as of this encounter Visit Diagnoses Not on filedocumented in this encounter Care Teams Senior Electrical Estimator Relationship Specialty Start Date End Date Odalys Escobar APRN PCP - General Family Medicine 11/26/20 [address] [place] [address] documented as of this encounter
--- OUTSIDE RECORDS SUMMARY | 2022-10-04 12:23 | XMS_ITS | Encounter Summary ---
:1975 Author Organization [facility] [place] [address] Care Team Providers Name Role Phone Malgorzata Orellana APRN Primary Care Provider Encounter Details Date Type Department Care Team Description 05/11/2020 Telephone Endocrinology at [facility] [place] [address] [place] [address] Social History Tobacco Use Types Packs/Day Years Used Date Smoking Tobacco: Every Day Cigarettes 1 Smokeless Tobacco: Never Sex Assigned at Date Recorded Female 12/12/2021 11:37 AM EST documented as of this encounter Miscellaneous Notes Telephone Encounter - Hawk Armas - 05/11/2020 3:08 PM EDT Left message with mother to have patient give us a call back to [facility] a 2 week telehealth f/u Dr. Jones. documented in this encounter Plan of Treatment Upcoming Encounters Date Type Specialty Care Team Description 11/21/2022 Appointment Radiology Gricel Stoddard APRN [place], [place] [address] (Wo rk) documented as of this encounter Visit Diagnoses Not on filedocumented in this encounter Care Teams Application Programmer Analyst Relationship Specialty Start Date End Date Malgorzata Orellana APRN PCP - General Internal Medicine 03/22/19 10/13/[address] [place] [place] [address] documented as of this encounter
--- OUTSIDE RECORDS SUMMARY | 2022-10-04 12:23 | XMS_ITS | Encounter Summary ---
:1975 Author Organization [facility] [place] [address] Care Team Providers Name Role Phone Malgorzata Orellana APRN Primary Care Provider Reason for Visit Consultation (Routine) - Closed Specialty Diagnoses / Procedures Referred By Contact Refer red To Contact Endocrinology Diagnoses LOW TSH Malgorzata Orellana APRN [facility] Endocrinology [address] [place] [id number] Referral ID Status Reason Start Date Expiration Date Visits V isits Requested Authorized [id number] Closed Consult, 03/22/2019 03/21/2020 1 1 [facility] Encounter Details Date Type Department Care Team Description 06/03/2019 Office Visit Endocrinology at [facility] C Mo Salinas MD [address] [place] [address] [facility] Ashly Ch, DO [address] [place] [address] [place] [address] Social History Tobacco Use Types Packs/Day Years Used Date Smoking Tobacco: Every Day Cigarettes 1 Smokeless Tobacco: Never Sex Assigned at Date Recorded Female 12/12/2021 11:37 AM EST documented as of this encounter Last Filed Vital Signs Vital Sign Reading Time Taken Comments Blood Pressure 116/70 06/03/2019 2:32 PM EDT Pulse 73 06/03/2019 2:32 PM EDT Temperature - - Respiratory Rate - - Oxygen Saturation 98% 06/03/2019 2:32 PM EDT Inhaled Oxygen Concentration - - Weight 67 kg (147 lb 12.8 oz) 06/03/2019 2:32 PM EDT Height 154.9 cm (5' 1) 06/03/2019 2:32 PM EDT Body Mass Index 27.93 06/03/2019 2:32 PM EDT documented in this encounter Progress Notes Ashly Lucas, DO - 06/03/2019 2:30 PM EDT Images from the original note were not included. ENDOCRINOLOGY CONSULT OUTPATIENT NOTE [facility] Name: Franchesca Dickson Date of Consultation: 06/03/19 Consult Requested by: Malgorzata Orellana APRN Reason for Consult: Suppressed TSH, thyroid nodule History of Present Illness: Ms. Dickson is a 43 year old female with a medical history of depression anxiety, GERD, bipolar disorder, nephrolithiasis, cholelithiasis status-post cholecystectomy, ovarian cyst status-post oophorectomy. She was referred today for suppression in her TSH and thyroid nodule found on thyroid ultrasound. Franchesca reports, I have had issues with my thyroid for years. She tells me that on occasion her thyroid levels have been abnormal, the blood levels are like a yo-yo. She tells me that she was diagnosed with hyperthyroidism in the past, approximately 5 years ago. She was not treated with medication at the time and the issue subsided on its own. Five to six months ago she began to notice a complication of various symptoms. Her symptoms include severe diarrhea, which is being worked up by GI. She also reports worsening of her underlying depression and anxiety, with difficultly controlling her anger. She has noted extreme hot flashes and wakingduring the night drenched in sweat. She reports normal periods and no changes in her weight. Please see below for further outline of thyroid specific symptoms. Thyroid review of symptoms: Cold/Heat sensitivity - denies Decrease/Increased appetite - denies Weight gain/Weight loss- gain 40 pounds over about one year Diarrhea/Constipation - present, being seen by GI for this issue, recently colonoscopy Diaphoresis - present, reports drenching night sweats Palpitations - present, several times a day to once a week Fatigue - extreme fatigue present Irritability/nervousness - present Muscle weakness/tremors - muscle weakness is present Sleep disturbances - patient reports insomnia, recently put on Xanax with psychiatry which is helping her sleep Vision/eye problems - my eyes seem blurry a lot, status-post recent eye exam one month which was reportedly normal, no need for new glasses, pain behind the right eye on occasion History of H+N XRT exposure: denies Family history of thyroid cancer: unsure Thyroid Compressive symptoms: Globus sensation:present Dysphagia: present, water even hurts to swallow sometimes Dysphonia: present, feels a hoarseness in her voice Dyspnea: denies Past Medical History: Bipolar disorder Restless leg syndrome Vitamin D deficiency Tobacco abuse Depression Anxiety Nephrolithiasis Cholelithiasis Past Surgical History: Procedure Laterality Date ??? 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 Erythromycin ??? Erythromycin Base CIS - Nausea/Vomiting ??? Paroxetine Hcl CIS - PALPITATIONS, INSOMNIA ??? Sulfa (Sulfonamide Antibiotics) CIS - Hives ??? Sulfur Physical Exam: Most Recent Vitals: 06/03/19 1432 BP: 116/70 Pulse: 73 SpO2: 98% Body mass index is 27.93 kg/m??. General- alert and oriented Eyes- no proptosis or lid lag Neck - thyroid palpable, no specific nodularity CVS- regular rate and rhythm, no murmur EXT- no edema or cyanosis Skin- no rash, no lesions, warm to touch Neuro- fine tremor, normal-slight hyperreflexia Labs: TSH 0.05 Free T4 1.90 Outside thyroid ultrasound at [facility]: Assessment: Ms. Dickson is a 43 year old female with a medical history of depression anxiety, GERD, bipolar disorder, nephrolithiasis, cholelithiasis status-post cholecystectomy, ovarian cyst status-post oophorectomy. She was referred today for suppression in her TSH and thyroid nodule found on ultrasound. Ms. Dickson reports at least a five year history of thyroid disease, specifically biochemical analysis which revealed hyperthyroidism previously. She has never been treated with anti-thyroid medicationsor radioactive iodine. She tells me that the issue has historically resolved on its on. Five months ago she developed a multitude of symptoms including diarrhea, palpitations, tremor, hot flashes, general fatigue and worsening of her underlying psychiatric disorders. She reports that she underwent thyroid testing with her PCP, these tests revealed a slightly suppressed TSH with a normal free T4 (outlined above). As part of this work up she underwent thyroid ultrasound which revealed a 0.7 cm nodule in the left lobe, outlined in the scanned report copied above. For these reasons we are seeing her today. Based on her history, she most likely is suffering from underlying Graves disease with an incidentally found thyroid nodule. On our ultrasound today. her thyroid is slightly enlarged with general heterogeneity throughout, we also note the subcentimeter nodule in the left lobe, which does not appear particularly hypervascular. At this point, we would recommend retesting her thyroid studies including a TSH, free T4 and total T3. We will add a TSI to assess for Graves disease. If her TSI is negative, we will move forward with I-123 uptake and scan to delineate the underlying cause further. If TSI is positive, we will move forward directly with treatment with Methimazole. Plan: - TSH, free T4 and total T3 today - I-123 uptake and scan if TSI negative - Begin Methimazole if clinical and biochemical hyperthyroidism persists Thank you for allowing us to provide care for your patient. The above case was discussed and reviewed with attending physician, Dr. Salinas. Ashly Lucas DO Endocrinology, Diabetes and Metabolism Fellow 06/03/19 3:32 PM Ashly Lucas DO - 06/03/2019 2:30 PM EDT ENDOCRINOLOGY THYROID ULTRASOUND REPORT Patient:Franchesca Dickson, [id number] Date of exam: 06/03/2019 Indication: thyroid nodule Comparison: Outside ultrasound from 03/2019 Performed by: Shayy Real time images of the thyroid gland were obtained using a BK 15mHz US machine. All measurements are given as Longitudinal/Sagittal x AP x Transverse. Right Lobe: The right lobe measure 4.0 x 1.6 x 1.7 cm with slightly heterogenous thyroid tissue texture. Left Lobe: Left lobe measures 3.0 x 1.9 x 1.9 cm with heterogeneous thyroid tissue texture. Left medial mid-lobe/isthmus nodule measuring 0.7 x 0.3 x 0.6 cm, hypoechoic nodule with small intranodular calcifications. Isthmus: The isthmus measures 0.4 cm. Lateral neck: The lateral neck contains no abnormal lymph nodes. Impression: One hypoechoic left thyroid nodule measuring 0.7 x 0.3 x 0.6 cm with small intranodular calcifications. Ashly Lucas DO, PGY6 Endocrinology, Diabetes and Metabolism Fellow 06/03/2019 3:06 PM Pager #[phone] Mo Salinas MD - 06/03/2019 2:30 PM EDT I saw this patient with Dr Lucas. I reviewed the ye portions of the history and physical exam, and reviewed pertinent lab data. I was present for the ultrasound and agree that there is one subcentimeter nodule with microcalcifications that bears surveillance but does not meet criteria for biopsy. It is very unlikely to be the cause of hyperthyroidism since is is under 2 cm in all dimensions. I answered all patient questions. I was involved in all medical decision making and agree with this plan. documented in this encounter Plan of Treatment Upcoming Encounters Date Type Specialty Care Team Description 11/21/2022 Appointment Radiology Gricel Stoddard APRN [place] [id number] (Wo rk) documented as of this encounter Procedures Procedure Name Priority Date/Time Associated Diagnosis Comme nts THYROID STIMULATING Routine 06/03/2019 4:15 Hyperthyroidism Re sults for this IMMUNOGLOBULINS PM EDT procedure ar e in the results section. T3 TOTAL Routine 06/03/2019 4:15 Hyperthyroidism Results f or this PM EDT procedure are i n the results section. TSH Routine 06/03/2019 4:15 Hyperthyroidism Results f or this PM EDT procedure are i n the results section. T4, FREE Routine 06/03/2019 4:15 Hyperthyroidism Results f or this PM EDT procedure are i n the results section. documented in this encounter Results Thyroid Stimulating Immunoglobulins (06/03/2019 4:15 PM EDT) athologist Signature TSI <0.10 <=0.55 IU/L [facility] Specimen Anatomical Collection Method Collection Time Receive d Time (Source) Location / / Volume Laterality Blood specimen 06/03/2019 4:15 PM 019 6:48 (specimen) EDT AM EDT Resulting Agency Comment Spec In Lab Mo Salinas MD IMMUNOLOGY ORDERABLES Performing Organization Address City/State/ZIP Code Phon e Number [address] T4, free (06/03/2019 4:15 PM EDT) athologist Signature Free T4 1.26 0.93 - 1.70 [facility] Clio ng/dL [facility] Specimen Anatomical Collection Method Collection Time Receive d Time (Source) Location / / Volume Laterality Blood specimen 06/03/2019 4:15 PM 019 4:19 (specimen) EDT PM EDT Resulting Agency Comment Spec In Lab Mo Salinas MD CHEMISTRY ORDERABLES Performing Organization Address City/[facility]/ZIP Code Phon e Number [address] T3 Total (06/03/2019 4:15 PM EDT) athologist Signature T3, Total 127 75 - 170 [facility] ng/dL [facility] Specimen Anatomical Collection Method Collection Time Receive d Time (Source) Location / / Volume Laterality Blood specimen 06/03/2019 4:15 PM 019 4:19 (specimen) EDT PM EDT Resulting Agency Comment Spec In Lab Mo Salinas MD CHEMISTRY ORDERABLES Performing Organization Address City/[facility]/[place] [address] (ABNORMAL) TSH (06/03/2019 4:15 PM EDT) P athologist Signature TSH 0.14 (L) 0.27 - 4.20 [facility] mcIU/mL [facility] Specimen Anatomical Collection Method Collection Time Receive d Time (Source) Location / / Volume Laterality Blood specimen 06/03/2019 4:15 PM 019 4:19 (specimen) EDT PM EDT Resulting Agency Comment Spec In Lab Mo Salinas MD CHEMISTRY ORDERABLES Performing Organization Address City/[facility]/[place] [address] documented in this encounter Visit Diagnoses Diagnosis Hyperthyroidism Thyrotoxicosis without mention of goiter or other cause, without mention of thyrotoxic crisis or storm documented in this encounter Care Teams Network Solutions Architect Relationship Specialty Start Date End Date Malgorzata Orellana APRN PCP - General Internal Medicine 03/22/19 10/13/[address] [place] [place] [address] documented as of this encounter
--- OUTSIDE RECORDS SUMMARY | 2022-10-04 12:23 | XMS_ITS | Encounter Summary ---
:1975 Author Organization [facility] [place] [address] Care Team Providers Name Role Phone Malgorzata Orellana APRN Primary Care Provider Encounter Details Date Type Department Care Team Description 08/30/2019 Telephone Endocrinology at [facility] Ashly Jaquez, [facility] [place] [phone] ENDOCRINOLOGY DEPT [phone] [place], [place] [address] (Wo rk) Social History Tobacco Use Types Packs/Day Years Used Date Smoking Tobacco: Every Day Cigarettes 1 Smokeless Tobacco: Never Sex Assigned at Date Recorded Female 12/12/2021 11:37 AM EST documented as of this encounter Miscellaneous Notes Telephone Encounter - Ashly Lucas DO - 08/30/2019 10:51 AM EDT Endocrinology Follow up Call Called patient regarding most recent labs, which are scanned in the system. It appears that her AST/ALT and cell lines are appropriate. These values were checked prior to starting Methimazole given theinherent, but rare, risks associated which are outlined in my previous telephone note. Given the above information, I have recommended starting Methimazole 5 mg daily. This has been sent to her pharmacy. Risks were again discussed, and symptoms to look out for were reviewed. She again verbalizes understanding to stop Methimazole and call the office immediately if any concerning symptomssuch as fever, sore throat, abdominal pain, jaundice or nausea/vomiting occur. If this occurs, she understands that she will be sent for STAT labs to rule out agranulocytosis or liver toxicity. I will repeat labs in 4-6 weeks to ensure thyroid function are trending to euthyroidism and ALT/AST/cell lines remain normal. She will do these at [facility] and let us know when they are completed. Ashly Lucas DO, PGY6 Endocrinology, Diabetes and Metabolism Fellow 08/30/2019 10:55 AM Pager #[phone] documented in this encounter Plan of Treatment Upcoming Encounters Date Type Specialty Care Team Description 11/21/2022 Appointment Radiology Gricel Stoddard APRN [place] [address] (Wo rk) documented as of this encounter Visit Diagnoses Diagnosis Hyperthyroidism Thyrotoxicosis without mention of goiter or other cause, without mention of thyrotoxic crisis or storm documented in this encounter Care Teams It Program Manager Relationship Specialty Start Date End Date Malgorzata Orellana APRN PCP - General Internal Medicine 03/22/19 10/13/20 [address] [place] [address] documented as of this encounter
--- OUTSIDE RECORDS SUMMARY | 2022-10-04 12:23 | XMS_ITS | Encounter Summary ---
:1975 Author Organization [facility] [address] Care Team Providers Name Role Phone Anthony Burns MD Primary Care Provider Reason for Visit Reason Comments Verrucous Vulgaris Encounter Details Date Type Department Care Team Description 10/25/2011 Office Visit Dermatology Josh Mace, Verruca vulgaris [address] [place], [place] DERMATOLOGY [address] [place] [address] [phone] (Wo rk) Social History Tobacco Use Types Packs/Day Years Used Date Smoking Tobacco: Never Assessed Sex Assigned at Date Recorded Female 12/12/2021 11:37 AM EST documented as of this encounter Progress Notes Josh Mace MD - 10/25/2011 3:51 PM EST Problem Verruca vulgaris, left second finger. Franchesca is a 35-year-old woman who is referred today by Sun Kaur for a painful verruca on the left second finger dorsally. It has been treated with [id number] treatments without success and LN2 treatment. It has been present for 4-5 months. She hits it on almost everything. Physical examination reveals a 7mm flat topped verruca vulgaris which is somewhat exophytic present on the left distal dorsal second finger. Assessment & Plan: Verruca vulgaris. a. Discussed diagnosis. b. After obtaining patient consent, the site was anesthetized and removed with shave biopsy. c. Base lightly electrodesiccated and curetted. d. Triple antibiotic ointment and Band-Aid placed. e. Wound care instructions and supplies given. f. RTC here p.r.n. Copy: MAXIMILIANO Steele documented in this encounter Plan of Treatment Upcoming Encounters Date Type Specialty Care Team Description 11/21/2022 Appointment Radiology Gricel Stoddard, [facility] [place] [address] (Wo rk) documented as of this encounter Visit Diagnoses Diagnosis Verruca vulgaris - Primary Viral warts, unspecified documented in this encounter Care Teams Stator Winder Relationship Specialty Start Date End Date Anthony Burns MD PCP - General 10/25/11 03/21/[address] [place] [address] [address] [place] [address] documented as of this encounter
--- OUTSIDE RECORDS SUMMARY | 2022-10-04 12:23 | XMS_ITS | Encounter Summary ---
:1975 Author Organization [facility] Address [address] [place] [address] Care Team Providers Name Role Phone Nya Escobarh TOSHIA Primary Care Provider Reason for Visit Consultation (Routine) - Closed Specialty Diagnoses / Procedures Referred By Contact Refer red To Contact Gastroenterology Diagnoses Persistent depressive disorder Bipolar affective disorder, remission status unspecified Diarrhea, unspecified type Irritable bowel syndrome with diarrhea Bloating Poor appetite Early satiety Unintentional weight loss Daphnie Sabillon, Giguere-Rich, low fodmap diet TOSHIA [address] [facility] [place] [address] Referral ID Status Reason Start Date Expiration Visits Visits Date Requested Authorized [id number] Closed Continuity of 01/03/2022 01/03/2023 1 1 Care Encounter Details Date Type Department Care Team Description 02/03/2022 [place] [facility] [place] Giguere-Rich, Irritable bowel syndrome wit h diarrhea; (TeleHealth) [facility] [address]; [place] [address] Abdominal cramping [phone] Social History Tobacco Use Types Packs/Day Years Used Date Smoking Tobacco: Every Day Cigarettes 0.5 Smokeless Tobacco: Never Alcohol Use Standard Drinks/Week Comments Yes 1 (1 standard drink = 0.6 oz pure alcoho l) 7 a week Sex Assigned at Date Recorded Female 12/12/2021 11:37 AM EST documented as of this encounter Progress Notes Chela Edwards RD - 02/03/2022 2:00 PM EDT Patient seen with myself and Emily Quiroga, architect intern. I agree with the assessment and plan outlined in her note. Emily Quiroga - 02/03/2022 2:00 PM EDT Nutrition Reason for visit: Franchesca Dickson is a 46 year old woman chronic diarrhea, abdominal bloating, and abdominal cramping consistent with IBS-D. Referred to GI dietitian for low FODMAP diet education. Wt Readings from Last 5 Encounters: 12/02/21 68.2 kg (150 lb 6.4 oz) 11/26/20 62.3 kg (137 lb 6.4 oz) 06/03/19 67 kg (147 lb 12.8 oz) Ht Readings from Last 5 Encounters: 12/02/21 154.9 cm (5' 0.98) 11/26/20 154.9 cm (5' 1) 06/03/19 154.9 cm (5' 1) There is no height or weight on file to calculate BMI. No outpatient medications have been marked as taking for the 02/03/22 encounter (TH Visit (TeleHealth)) with Chela Edwards RD. Weight loss- none noted, on a medication that causes weight gain UBW- 129 lbs Diet Recall: B- Yogurt occasionally L- none D- Meat (roast, pork chops, ham, chicken) with mac and cheese (boxed), vegetables (green beans, carrots, broccoli) Fluids: water (80-96 fl oz. day) Evaluation: Hx. Gallbladder removal few years ago No appetite Stomach always feels full/bloated. Increased BM Vomiting nightly for the last couple of days Sharp pains in stomach, cramping, stomach constantly feels like she's eaten a 4 course meal Diarrhea and vomiting a few hours after going to bed, including fecal incontinence Does not eat breakfast or lunch. Eats at 6-7 PM, in bed at 9 PM Does not eat fish, blueberries, tomatoes, apples, acidic foods Chela Edwards to send list of gluten free foods thru portal Medications: vibrid 40mg topiramate 100 mg vraylar 3 mg Methylphenidate (Ritalin) 20 mg alprazolam (xanax) 1 mg olanzapine 10 mg zyprexa 5mg pantoprazole 10mg Trialed citrucel pills for 1 month, 2 every morning, no effect seen Diet Reviewed: Gluten free, lactose free Nutrition status: Poor Recommendations/Plan: 1. Trial gluten free diet for 4 weeks 2. Continue lactose free diet 3. Add oatmeal daily 4. Try carlos tea in the morning 5. Follow up March 09, 2022 at 2PM documented in this encounter Plan of Treatment Upcoming Encounters Date Type Specialty Care Team Description 11/21/2022 Appointment Radiology Gricel Stoddard APRN [place] [phone] (Wo rk) Scheduled Referrals Name Type Priority Associated Diagnoses Order S chedule Referral to Outpatient Referral Routine Persistent Ordered: Nutrition Services depressive di sorder 01/03/2022 Bipolar affective disorder, remission status unspecifi ed Diarrhea, unspecified type Irritable bowel syndrome with diarrhea Bloating Poor appetite Early satiety Unintentional weight loss documented as of this encounter Visit Diagnoses Diagnosis Irritable bowel syndrome with diarrhea Irritable bowel syndrome Bloating Flatulence, eructation, and gas pain Abdominal cramping Abdominal pain, unspecified site documented in this encounter Care Teams Horse Farm Manager Relationship Specialty Start Date End Date Odalys Escobar APRN PCP - General Family Medicine 11/26/20 [address] [place] [address] documented as of this encounter
--- OUTSIDE RECORDS SUMMARY | 2022-10-04 12:23 | XMS_ITS | Encounter Summary ---
:1975 Author Organization [facility] [place] [address] Care Team Providers Name Role Phone Odalys Escobar APRN Primary Care Provider Encounter Details Date Type Department Care Team Description 03/24/2021 [place] [address] Social History Tobacco Use Types Packs/Day Years Used Date Smoking Tobacco: Every Day Cigarettes 1 Smokeless Tobacco: Never Sex Assigned at Date Recorded Female 12/12/2021 11:37 AM EST documented as of this encounter Plan of Treatment Upcoming Encounters Date Type Specialty Care Team Description 11/21/2022 Appointment Radiology Gricel Stoddard APRN [place], [place] [address] (Wo rk) documented as of this encounter Visit Diagnoses Not on filedocumented in this encounter Care Teams Unitizer Relationship Specialty Start Date End Date Odalys Escobar APRN PCP - General Family Medicine 11/26/20 [place] [address] documented as of this encounter
--- OUTSIDE RECORDS SUMMARY | 2022-10-04 12:23 | XMS_ITS | Encounter Summary ---
:1975 Author Organization [facility] [address] Care Team Providers Name Role Phone Unavailable Primary Care Provider Unavailable Encounter Details Date Type Department Care Team Description 10/30/2020 TH Visit Endocrinology at [facility] Antoni Roth, Subclinical hyperthyroidism; (TeleHealth) [facility] [place]ont[place] [address] CENTER [phone] [place] [address] Social History Tobacco Use Types Packs/Day Years Used Date Smoking Tobacco: Every Day Cigarettes 1 Smokeless Tobacco: Never Sex Assigned at Date Recorded Female 12/12/2021 11:37 AM EST documented as of this encounter Progress Notes Antoni Jones MD - 10/30/2020 11:00 AM EST Endocrinology Outpatient Follow Up Name:??Franchesca Dickson : 1975 Reason for initial referral: thyroid nodule and suppressed TSH ID: Franchesca Dickson is a 44 year old female with a medical history significant for depression, anxiety, GERD, bipolar disorder, nephrolithiasis, fibromyalgia, cholelithiasis status-post cholecystectomy, ovarian cyst status-post oophorectomy, was initially referred to endocrine clinic in May, for supppressed TSH in the setting of thyroid nodule on thyroid US. Franchesca followed Dr. Lucas until 2019. Franchesca had long standing h/o intermittent abnormalities in TFTs for 6 years. She states blood levels are like a yo-yo. She was diagnosed with hyperthyroidism in the past, approximately 6 years ago, but was not treated with medication and the issue subsided on its own. In early 2018, she developed a myriad of symptoms (severe diarrhea, worsening of her underlying depression and anxiety, with difficultly controlling her anger, extreme hot flashes and waking up at night drenched in sweat), underwent TFTs with thyroid US and was referred to endocrine clinic. Work up so far: 06/03/19: TSH 0.14, FT4 1.26, TT3 127 and TSI <0.10 KRISHNAMURTHY uptake scan (06/25/19): Normal thyroid morphology and low end of normal thyroid uptake of 11%. 08/05/19: TSH 0.09, FT4 1.19, TPO <28, TT3 133 08/30/19: Started on Methimazole 5 mg daily due to suppressed TSH and persistent hyperthyroid symptoms 10/24/19: TSH 0.32, FT4 1.03, TT3 152 01/16/20: TSH 6.82, FT4 0.67, TT3 145; Reduced Methimazole to 2.5 mg daily 04/16/20: Discontinued Methimazole 05/01/20: TSH 0.35, FT4 1.05 05/05/20: Restarted Methimazole 2.5 mg daily for symptoms of intermittent palpitations and diarrhea. 06/05/20: TSH 0.76; FT 0.91; TT3 132 06/26/20: TSH 0.65; FT4 1.04; TT3 145; TSI ab<1; TPO ab <28; celiac ab negative Interim Events: - Currently on Methimazole 2.5 mg daily. - Methimazole did not provide any improvement in symptoms. - She confirmed that she was on low iodine diet prior to RAIU scan last year. - Hasn't been on lithium for more than 2 years, denies taking iodine containing supplements or biotin. - Has upcoming appointment with GI for weight loss and occasional blood in stool. Review of symptoms: Constitutional: fatigue +, 20 lb weight loss in last 3-4 months, unintentional Endocrine: No heat intolerance, night sweats +, no goitre Eyes: No recent vision change ENT: intermittent difficulty swallowing + Cardiovascular: intermittent palpitations + Respiratory: No shortness of breath GI: no diarrhea Neurological: no tremors Patient Active Problem List Diagnosis Code ??? CIS - Anxiety/depression ??? CIS - kidney stones ??? CIS - Knee arthritis ??? CIS - Obesity ??? CIS - subclinical hyperthyroidism ??? Persistent depressive disorder F34.1 ??? Bipolar disorder F31.9 ??? Restless leg syndrome G25.81 Past Surgical History: Procedure Laterality Date ??? CREATED BY INTERFACE x2 in 1997 and 2000 Procedure Date: Unknown Social History Tobacco Use ??? Smoking status: Current Every Day Smoker Packs/day: 1.00 ??? Smokeless tobacco: Never Used Substance Use Topics ??? Alcohol use: Not on file Allergies Allergen Reactions ??? Erythromycin ??? Erythromycin Base CIS - Nausea/Vomiting ??? Paroxetine Hcl CIS - PALPITATIONS, INSOMNIA ??? Sulfa (Sulfonamide Antibiotics) CIS - Hives ??? Sulfur ??? Tree Nut Rash Current Medications ??? pantoprazole EC (Protonix) 40 mg Tablet, Delayed Release (E.C.) ??? cariprazine (Vraylar) 1.5 mg Capsule ??? topiramate (Topamax) 100 mg Tablet ??? methIMAzole (Tapazole) 5 mg Tablet ??? VIIBRYD 40 mg Tablet ??? ALPRAZolam (XANAX) 1 mg Tablet ??? OLANZapine (ZYPREXA) 5 mg Tablet ??? propranoloL (Inderal) 10 mg Tablet Office based Thyroid US from 06/03/19: Right Lobe: The right lobe measure??4.0 x 1.6 x 1.7 cm with slightly heterogenous thyroid tissue texture.?? Left Lobe: Left lobe measures 3.0 x 1.9 x 1.9 cm with heterogeneous??thyroid tissue texture. Left medial mid-lobe/isthmus nodule measuring 0.7 x 0.3 x 0.6 cm, hypoechoic nodule with small intranodular calcifications. Isthmus: The isthmus measures??0.4??cm. ?? Lateral neck: The lateral neck contains??no abnormal??lymph nodes. Impression: One hypoechoic left thyroid nodule measuring??0.7 x 0.3 x 0.6 cm with small intranodularcalcifications. Assessment Franchesca Dickson is a 44 year old female with a medical history significant for depression, anxiety, GERD, bipolar disorder, nephrolithiasis, fibromyalgia, cholelithiasis status-post cholecystectomy, ovarian cyst status-post oophorectomy, was initially referred to endocrine clinic in May, for supppressed TSH in the setting of thyroid nodule on thyroid US. Franchesca followed Dr. Lucas until 2019. Franchesca had long standing h/o intermittent abnormalities in TFTs for 6 years. She states blood levels are like a yo-yo. She was diagnosed with hyperthyroidism in the past, approximately 6 years ago, but was not treated with medication and the issue subsided on its own. In early 2018, she developed a myriad of symptoms (severe diarrhea, worsening of her underlying depression and anxiety, with difficultly controlling her anger, extreme hot flashes and waking up at night drenched in sweat), underwent TFTs with thyroid US and was referred to endocrine clinic. Work up so far: 06/03/19: TSH 0.14, FT4 1.26, TT3 127 and TSI <0.10 KRISHNAMURTHY uptake scan (06/25/19): Normal thyroid morphology and low end of normal thyroid uptake of 11%. 08/05/19: TSH 0.09, FT4 1.19, TPO <28, TT3 133 08/30/19: Started on Methimazole 5 mg daily due to suppressed TSH and persistent hyperthyroid symptoms 10/24/19: TSH 0.32, FT4 1.03, TT3 152 01/16/20: TSH 6.82, FT4 0.67, TT3 145; Reduced Methimazole to 2.5 mg daily 04/16/20: Discontinued Methimazole 05/01/20: TSH 0.35, FT4 1.05 05/05/20: Restarted Methimazole 2.5 mg daily for symptoms of intermittent palpitations and diarrhea. 06/05/20: TSH 0.76; FT 0.91; TT3 132 06/26/20: TSH 0.65; FT4 1.04; TT3 145; TSI ab<1; TPO ab <28; celiac ab negative In summary, previous TFTs consistent with subclinical hyperthyroidism, TPO and TSI ab negative and I-123 scan last year showed low end of normal thyroid uptake (11%). Franchesca has been on/off low dose methimazole for the past 1.5 year, did not really feel any improvement in symptoms with medication. Given negative work up for graves disease previously and no improvement in symptoms on antithyroid medication, recommend to discontinue methimazole. She has a h/o complex sub- centimeter thyroid nodule, recommend in person follow up for thyroid US. Will continue to monitor TFTs and further course pending work up results. Recommendations: 1. D/C Methimazole 2. Recheck thyroid hormones in a month 3. In person follow up for complex thyroid nodule in 1 month. 4. Do not take biotin or iodine supplements 5. Take Propranolol 10 mg bid as needed for hyperadrenergic symptoms. 6. Follow up in 1 month. Above plan discussed with Franchesca and she understands and agrees with the plan. All questions answered. Thank you for allowing us to provide care for your patient. D/W Dr. Christian Jones Endocrinology fellow [facility] ?? Chris Gonzales MD - 10/30/2020 11:00 AM EST I have reviewed Dr Joens's history/note and I agree with the details as written. The assessment andplan were formulated in discussion with me and I agree with them as documented. Diagnosis of Graves disease was not established either by biochemical assessment (normal TSI) or uptake scan (low normal 24 hr uptake). Therefore it is more likely hyperthyroidism is driven by thyroiditis. Agree with plan to hold methimazole and reassess thyroid function studies several weeks later Medical complexity: moderate given two chronic problems (hyperthyroidism and thyroid nodule), medication management Chris Gonzales MD [employer] Chopperphysical therapy aid Endocrinology Section [facility] documented in this encounter Plan of Treatment Upcoming Encounters Date Type Specialty Care Team Description 11/21/2022 Appointment Radiology Gricel Stoddard, ARCADE ATTENDANT [facility] [address] [place] [address] (Wo rk) documented as of this encounter Results T4, free (11/26/2020 11:52 AM EST) athologist Signature Free T4 1.15 0.93 - 1.70 PHUONG DUENASCOCK ng/dL [facility] Specimen Anatomical Collection Method Collection Time Receive d Time (Source) Location / / Volume Laterality Blood specimen 11/26/2020 11:52 1 (specimen) AM EST 12:24 PM EST Resulting Agency Comment Spec In Lab Chris Gonzales MD CHEMISTRY ORDERABLES Performing Organization Address City/[facility]/ZIP Code Phon e Number [address] T3 Total (11/26/2020 11:52 AM EST) athologist Signature T3, Total 99 75 - 170 PHUONG IVORY ng/dL [facility] Specimen Anatomical Collection Method Collection Time Receive d Time (Source) Location / / Volume Laterality Blood specimen 11/26/2020 11:52 1 (specimen) AM EST 12:24 PM EST Resulting Agency Comment Spec In Lab Chris Gonzales MD CHEMISTRY ORDERABLES Performing Organization Address City/[facility]/[place] [address] TSH (11/26/2020 11:52 AM EST) athologist Signature TSH 0.37 0.27 - 4.20 PHUONG DODSON mcIU/mL [facility] Specimen Anatomical Collection Method Collection Time Receive d Time (Source) Location / / Volume Laterality Blood specimen 11/26/2020 11:52 1 (specimen) AM EST 12:24 PM EST Resulting Agency Comment Spec In Lab Chris Gonzales MD CHEMISTRY ORDERABLES Performing Organization Address City/[facility]/[place] [address] documented in this encounter Visit Diagnoses Diagnosis Subclinical hyperthyroidism Thyrotoxicosis without mention of goiter or other cause, without mention of thyrotoxic crisis or storm Nontoxic single thyroid nodule Nontoxic uninodular goiter documented in this encounter
--- OUTSIDE RECORDS SUMMARY | 2022-10-04 12:23 | XMS_ITS | Encounter Summary ---
:1975 Author Organization [facility] [place] [address] Care Team Providers Name Role Phone Odalys Escobar APRN Primary Care Provider Reason for Referral Diagnostic Test (Routine) - Closed Specialty Diagnoses / Procedures Referred By Contact Refer red To Contact Radiology Diagnoses Right internal carotid artery aneurysm Gricel Stoddard APRN [facility] Interventionl Rad Procedures [place] [address] [place] [address] Referral ID Status Reason Start Date Expiration Date Visits V isits Requested Authorized [id number] Closed Specialty 03/14/2022 11/12/2022 1 1 Service Requested Encounter Details Date Type Department Care Team Description 02/04/2022 Orders Only Neurosurgery at [facility] Gricel Stoddard Right internal [facility] FLOOR SANDER carotid artery [facility] [place] [address] [phone] NEUROSURGERY [place] [id number] Social History Tobacco Use Types Packs/Day Years [...] Appointment Radiology Gricel Stoddard APRN [facility] [place], [place] [address] (Wo rk) documented as of this encounter Results IR Embolization Cerebral (04/04/2022 4:36 PM EDT) Anatomical Region Laterality Modality Spine X-Ray Angiography Specimen (Source) Anatomical Location Collection Method / Collectio n Time Received Time / Laterality Volume Narrative 04/22/2022 2:09 AM EDT Awaiting upload of angiography data to PACS Refer to eDH for full details. Gricel Stoddard APRN IMG IR ORDERABLES documented in this encounter Visit Diagnoses Diagnosis Right internal carotid artery aneurysm Cerebral aneurysm, nonruptured Right internal carotid artery aneurysm Cerebral aneurysm, nonruptured documented in this encounter Care Teams Public Transit Bus Driver Relationship Specialty Start Date End Date Odalys Escobar APRN PCP - General Family Medicine 11/26/20 [address] [place] [address] documented as of this encounter
--- OUTSIDE RECORDS SUMMARY | 2022-10-04 12:23 | XMS_ITS | Encounter Summary ---
:1975 Author Organization [facility] [place] [address] Care Team Providers Name Role Phone Malgorzata Orellana APRN Primary Care Provider Encounter Details Date Type Department Care Team Description 05/28/2020 TH Visit Endocrinology at [facility] Antoni Roth Subclinical (TeleHealth) [facility] [place] [address] CENTER [phone] [place] [address] Social History Tobacco Use Types Packs/Day Years Used Date Smoking Tobacco: Every Day Cigarettes 1 Smokeless Tobacco: Never Sex Assigned at Date Recorded Female 12/12/2021 11:37 AM EST documented as of this encounter Progress Notes Antoni Jones MD - 05/28/2020 8:00 AM EDT Images from the original note were not included. ENDOCRINOLOGY OUTPATIENT FOLLOW UP ?? Name: Franchesca Dickson : 1975 Reason for initial referral: Suppressed TSH, thyroid nodule ?? ID: Franchesca Dickson is a 44 year old female with a medical history significant for depression anxiety, GERD, bipolar disorder, nephrolithiasis, Fibromyalgia (diagnosed last week), cholelithiasis status-post cholecystectomy, ovarian cyst status-post oophorectomy, was initially referred to endocrine clinic 2018 for supppressed TSH in the setting of thyroid nodule on thyroid US. Franchesca followed Dr. Lucas until recently. ?? Franchesca had long standing h/o intermittent abnormalities [...] US and was referred to endocrine clinic. Timeline since her initial visit: 06/03/19: TSH 0.14, FT4 1.26, TT3 127 [...] for symptoms of intermittent palpitations and diarrhea. Thyroid review of symptoms: Heat intolerance: yes Appetite - poor Weight- lost 10 lb over last 6 months Diarrhea - yes Diaphoresis - present, reports drenching night sweats Palpitations - intermittent, several times a week Fatigue - extreme fatigue present Irritability/nervousness - present Muscle weakness/tremors - both present Goitre: no Past Medical History: Patient Active Problem List Diagnosis ??? Bipolar disorder ??? Restless leg syndrome ??? Persistent depressive disorder ??? CIS - Anxiety/depression ??? CIS - kidney stones ??? CIS - Knee arthritis ??? CIS - Obesity Overview Note: Wt = 171 lbs (03/13/09) with PCP ??? CIS - subclinical hyperthyroidism Overview Note: Lab (04/19): TSH = 0.16 -> 0.27 with normal FT4 0.96 (06/19) Lab 03/28/08: TSH = 0.17, FT4= 1.08, normal CBC, B12 = 481, normal CMP, Alk phos 118, Ca 9.0 Lab 02/25/09: TSH = 0.05, FT4 = 1.06 +palpitations, diarrhea, fatigue but no weight loss Thyroid nuclear scan and uptake (03/19/09): normal I-131 uptake at 26% (24h), normal sized gland. Recent lab at initial Endo clinic (04/08/09): TSH = 0.17, T4 = 8.4, T3 = 110 (normal 75-170) ?? Past Surgical History: Procedure Laterality Date ??? CREATED BY INTERFACE x2 in 1997 and 2000 Procedure Date: Unknown Social history: Relationships Social connections ??? Talks on phone: Not on file ??? Gets together: Not on file ??? Attends baptist service: Not on file ??? Active member of club or organization: Not on file ??? Attends meetings of clubs or organizations: Not on file ??? Relationship status: Not on file Family History of Diabetes/ Endocrinopathies: Maternal history- COPD, stroke, anxiety, depression Paternal history- heart disease, neoplasm (?), asthma ?? Allergies Allergen Reactions ??? Erythromycin ??? Erythromycin Base CIS - Nausea/Vomiting ??? Paroxetine Hcl CIS - PALPITATIONS, INSOMNIA ??? Sulfa (Sulfonamide Antibiotics) CIS - Hives ??? Sulfur ??? Tree Nut Rash ??? cariprazine (Vraylar) 1.5 mg Capsule ??? topiramate (Topamax) 100 mg Tablet ??? methIMAzole (Tapazole) 5 mg Tablet ??? VIIBRYD 40 mg Tablet ??? ALPRAZolam (XANAX) 1 mg Tablet ??? OLANZapine (ZYPREXA) 5 mg Tablet ??? omeprazole (PRILOSEC OTC) 20 mg tablet Outside thyroid ultrasound at [facility]: Office based Thyroid US from 06/03/19: ?? Right Lobe: The right lobe measure 4.0 x 1.6 x 1.7 cm with slightly heterogenous thyroid tissue texture. ?? Left Lobe: Left lobe measures 3.0 x 1.9 x 1.9 cm with heterogeneous thyroid tissue texture. Left medial mid-lobe/isthmus nodule measuring 0.7 x 0.3 x 0.6 cm, hypoechoic nodule with small intranodular calcifications. ?? Isthmus: The isthmus measures 0.4 cm. ?? Lateral neck: The lateral neck contains no abnormal lymph nodes. ?? Impression: One hypoechoic left thyroid nodule measuring 0.7 x 0.3 x 0.6 cm with small intranodular calcifications. Assessment: Franchesca Dickson is a 44 year old female with a medical history significant for depression anxiety, GERD, bipolar disorder, nephrolithiasis, cholelithiasis status-post cholecystectomy, ovarian cyst status-post oophorectomy, was initially referred to endocrine clinic in May, for supppressed TSH in the setting of thyroid nodule on thyroid US. Franchesca followed Dr. Lucas until recently. ?? Franchesca had long standing h/o intermittent abnormalities in TFTs for 6-7 years. She states blood levels are like a yo-yo. She was diagnosed with hyperthyroidism in the past, approximately 6 years ago,but was not treated with medication and the issue subsided on its own. In early 2018, she developed a myriad of symptoms (severe diarrhea, worsening of her underlying depression and anxiety, with difficultly controlling her anger, extreme hot flashes and waking up at night drenched in sweat), underwent TFTs and thyroid US and was referred to endocrine clinic. 06/03/19: TSH 0.14, FT4 1.26, TT3 127 [...] for symptoms of intermittent palpitations and diarrhea. In summary, previous TFTs consistent with subclinical hyperthyroidism, TPO and TSI ab negative and I-123 scan last year showed low end of normal thyroid uptake (11%). Franchesca reports myriad of symptoms consistent with hyperthyroidism. Interestingly, she reports no major improvement of symptoms when sheis on antithyroid medication now or in the past. Additionally, she felt the same way when she was off the medication for few weeks recently. She is due for blood work next week. Plan: - TSH, free T4 and total T3 in 1 week. Labs routed to [facility]. - Continue Methimazole 2.5 mg daily. - Further recommendations pending blood work results. ?? Above plan discussed with Franchesca and she understands and agrees with the plan. All questions answered. Thank you for allowing us to provide care for your patient. D/W Dr. Nnamdi Jones Endocrinology fellow [facility] Cynthia Coto MD - 05/28/2020 8:00 AM EDT I discussed this patient with Dr. Jones. I reviewed the ye portions of the history and physical exam, and reviewed pertinent lab data. I was involved in all medical decision making and agree with this plan. CYNTHIA COTO MD [employer] Journeymanshowroom consultant Section of Endocrinology [facility] documented in this encounter Plan of Treatment Upcoming Encounters Date Type Specialty Care Team Description 11/21/2022 Appointment Radiology Gricel Stoddard, [place] [phone] (Wo rk) documented as of this encounter Visit Diagnoses Diagnosis Subclinical hyperthyroidism Thyrotoxicosis without mention of goiter or other cause, without mention of thyrotoxic crisis or storm documented in this encounter Care Teams Marine Farmer Relationship Specialty Start Date End Date Malgorzata Orellana APRN PCP - General Internal Medicine 03/22/19 10/13/[address] [place] [place] [address] documented as of this encounter
--- OUTSIDE RECORDS SUMMARY | 2022-10-04 12:23 | XMS_ITS | Encounter Summary ---
:1975 Author Organization [facility] [place] [address] Care Team Providers Name Role Phone BrittnyOdalys templeton TOSHIA Primary Care Provider Reason for Visit Auth/Cert Specialty Diagnoses / Procedures Referred By Contact Refer red To Contact Diagnoses Right internal carotid artery aneurysm RIGHT INTERNAL CAROTID ARTERY ANEURYSM Procedures PRO PERM OCCLUSION/EMBOLIZATION, PERCUT, GENERATION TECHNOLOGIST @TRANSCATHETER OCCLUSION/EMBOLIZATION FOR TUMOR DESTRUCTION Referral ID Status Reason Start Date Expiration Date Visits Requ ested Visits Authorized [id number] 1 1 Encounter Details Date Type Department Care Team Description 04/04/2022 Anesthesia Event [facility] Johann Horn MD [facility] [place] [address] [facility] Anthony Maldonado MD [facility] [place] [address] [place] [address] Anesthesia Record Procedure Summary Procedure Name Responsible Anesthesia Start Anesthesia Stop Anesthesiologist Time Time @TRANSCATHETER Johann Macdonald MD 04/04/22 1240 04/04/22 1634 OCCLUSION/EMBOLIZATIO N FOR TUMOR DESTRUCTION Events Date Time Event Comment 04/04/2022 1234 1240 AN Verify 1240 Start 1246 An Start Data 1255 An Induction 1257 An Intubation 1328 Anesthesia Ready 1429 Heparin 1449 Break/Relief In I assumed care f or [...] opportunity for questions and acknowledgement of understanding Johann Macdonald MD 1517 Break/Relief Out 1547 Extubation/LMA Out 1550 Quick Note Waiting on inpat ient bed to transfer patient to PACU 1600 Quick Note Right groin site oozing. Tech holding pressure on site 1607 an stop data 1608 Quick Note Patient awake an d alert, denies complaints. Tech holding pre ssure on oozing groin 1634 Recovery or ICU Handoff Patient care was transferred to the destination unit staff after review of the patient's medica l history, current anesthetic/surgi joyce status and plan, according to the Provider Handoff Checklist. 1634 Stop Name Total fentaNYL 100 mcg IV Lidocaine 100 mg Propofol 250 mg Rocuronium 70 mg ePHEDrine 45 mg Ondansetron 8 mg Dexamethasone 10 mg Propofol INF 249.38 mg Heparin 7,500 Units Sugammadex 200 mg lactated ringers infusion 700 mL Lactated Ringers 150 mL Agents Name O2 Air N2O Sevoflurane (et) O2 Auxiliary Flowmeter 2 Blood No blood administrations on file. Lines, Drains, and Airways Type Details Placement Removal Incision 01/28/22; 1121; Right, 01/28/22 1121 by Amen, anterior; wrist; Abiel Le RN non-laparascopic puncture PIV 04/04/22; 1159; median 04/04/22 1159 by 04/05/22 1308 by cubital vein (antecubital Victor M Shaw RN Duberek, Emy D, RN fossa), right; [id number] catheter system; Anatomical Landmarks; 20 gauge, 1 in length; distraction, tolerated well, intradermal injection; 1; median cubital vein (antecubital fossa), left; 04/05/22; 1308 ETT Mask Ventilation: Easy 04/04/22 1257 by 04/04/22 1547 by (1); ETT Type: Cuffed, Judit Snow I, Judit Ding I, Oral; ETT Size: 7 mm; MULTIPLE DRUM SANDER MULTIPLE DRUM SANDER Noel Blade: 3; Notes: Asleep, Pre-O2, Stylette; Attempts: 1; Laryngoscopy Grade: 1; ETT Placement Verified By: Auscultation, Capnometry, Visual; Secured at Teeth: 21 cm; Inserted by: Johann Macdonald MD PIV 04/04/22; 1306; dorsal 04/04/22 1306 by 04/04/22 2339 by arch vein (top of foot), Judit Snow I, Janae hard, Hoda M, left; [id number] MULTIPLE DRUM SANDER RN catheter system; Anatomical Landmarks; 20 gauge; Johann Macdonald MD; (under [place]); 2; no longer indicated (per neurosurgery team); 04/04/22; 2339 Arterial Line 04/04/22; 1328; dorsalis 04/04/22 1328 by 2339 by pedis artery, left; 20 Judit Snow I, [address], Hoda M, gauge; Ultrasound MULTIPLE DRUM SANDER RN Guidance, Anatomical Landmarks; Yes - US guidance used but Image NOT saved; continuous blood pressure monitoring, other (see comments) (ACT); Sterile Prep, Sterile Gloves; 1; radial artery, left; no longer indicated; 04/04/22; 2339 Urethral Catheter 04/04/22; 1343; Physician 04/04/22 1343 by 0600 by order; 1; 10; 10; none; Jazmin Arellano, RN L Chica florez, leg bag to dependent RN drainage; 04/05/22; 0600 documented in this encounter Social History Tobacco Use Types Packs/Day Years Used Date Smoking Tobacco: Every Day Cigarettes 0.5 Smokeless Tobacco: Never Alcohol Use Standard Drinks/Week Comments Yes 7 (1 standard drink = 0.6 oz pure alcoho l) Sex Assigned at Date Recorded Female 12/12/2021 11:37 AM EST documented as of this encounter OR Notes Anesthesia Postprocedure Evaluation - Johann Macdonald MD - 04/06/2022 5:07 PM EDT Department of Anesthesiology Post-procedure Note Patient: Franchesca Dickson Procedure Summary Date: 04/04/22 Room / Location: [facility] INTERVENTIONAL RADIOLOGY / [facility] Anesthesia Start: 1240 Anesthesia Stop: 1634 Procedure: @TRANSCATHETER OCCLUSION/EMBOLIZATION FOR TUMOR DESTRUCTION (N/A ) Diagnosis: (RIGHT INTERNAL CAROTID ARTERY ANEURYSM) Surgeons: Sary Bloom MD Responsible Provider: Johann Macdonald MD Anesthesia Type: general ASA Status: 3 All Anesthesia Providers: Anesthesiologist: Johann Macdonald MD MULTIPLE DRUM SANDER: Judit Snow CRNA Vitals Value Taken Time BP Temp Pulse Resp SpO2 Pain Level Patient Location: PACU/[facility] Level of Consciousness: Awake and Alert Pain Management: Satisfactory Analgesia PONV: None Cardiovascular Status: At Baseline Respiratory Status: At Baseline Postoperative Fluid Status: Intravascular EUvolemia Possible Anesthetic Complications: NONE apparent at time of evaluation Final Primary Anesthesia Type: General (The anesthetic type performed was the same as planned.) Comments: Anesthesia Preprocedure Evaluation - Johann Macdonald MD - 03/14/2022 6:57 AM EDT Pre-Anesthesia Evaluation for: Franchesca Dickson a 46 y.o. female. Procedure(s): @TRANSCATHETER OCCLUSION/EMBOLIZATION FOR TUMOR DESTRUCTION Patient Active Problem List Diagnosis Date Noted [...] IR Arteriogram Cerebral 01/28/2022 Sary Bloom MD [facility] INTERVENTIONL RAD Social History Tobacco Use ??? Smoking status: Current Every Day Smoker Packs/day: 0.50 ??? Smokeless tobacco: Never Used Substance Use Topics ??? Alcohol use: Yes Alcohol/week: 1.0 standard drink Types: 1 Cans of beer per week Comment: 7 a week Social History Substance and Sexual Activity Drug Use Yes ??? Types: Marijuana Allergies Allergen Reactions ??? Shellfish Containing Products [...] Physical Exam: Preprocedure Vitals Current as of 03/14/22 0657 No BP, pulse, respiration, SpO2, or temperature recorded. Height: Weight: BMI: IBW: Airway Assessment: Mallampati: II TM distance: >3 FB Neck ROM: full Cardiovascular Assessment: Rhythm: regular Rate: normal Pulmonary Assessment: breath sounds clear to auscultation Dental Assessment: Misc Assessment: Last Filed Perioperative Cognitive Screening None Anesthesia Plan: ASA 3 general, with a(n) intravenous induction Patient is a 46-year-old female with a right internal carotid artery aneurysm who is scheduled for occlusion/embolization under anesthesia. She is n.p.o. since yesterday took her a.m. meds this morningdenies any recent URI. Consent was obtained risk explained. Region - Intracranial (vascular) Informed Consent: Anesthetic plan and risks discussed with patient. Plan discussed with MULTIPLE DRUM SANDER and attending. PRELIMINARY (based off chart review) Attending NOTE Brief HPI: 46 y.o. with cerebral aneurysm to IR for embolization Diagnosis ??? CIS - Anxiety/depression ??? CIS - kidney stones ??? CIS - Obesity ??? CIS - subclinical hyperthyroidism ??? Persistent depressive disorder ??? Bipolar disorder ??? Restless leg syndrome ??? Right internal carotid artery aneurysm BP Readings from Last 3 Encounters: 01/28/22 (!) 81/54 12/02/21 112/76 11/26/20 115/77 METS:>4 ( ) Cardiac Symptoms: EKG: none ECHO: none LABS: Lab Results Component Value Date HGB 15.4 01/28/2022 PLATELET 354 01/28/2022 INR 0.9 01/28/2022 NA 142 01/28/2022 K 4.1 01/28/2022 CREATININE 0.84 01/28/2022 Type and Screen: No results found for: ABORH Past anesthetic problems: Previous airway notes (on eDH): none NPO status: Reviewed and appropriate ( ) Anesthetic Plan: GETA Monitoring: Standard ASA monitors, manuela Anesthesia Screening documented in this encounter Plan of Treatment Upcoming Encounters Date Type Specialty Care Team Description 11/21/2022 Appointment Radiology Gricel Stoddard APRN [place] [id number] (Wo rk) documented as of this encounter Visit Diagnoses Not on filedocumented in this encounter Administered Medications Inactive Administered Medications - up to 3 most recent administrations Medication Order MAR Action Action Date Dose Rate Site dexamethasone (Decadron) injection Given 04/04/2022 1:05 PM EDT 10 mg Intravenous, PRN, Starting on Mon04/04/22 at 1305, Until Mon04/04/22 at 1634, Anesthesia Intra-op, Routine ePHEDrine sulfate (5 mg/mL) multi-dose Given 04/04/2022 3:26 PM EDT 10 mg injection Intravenous, PRN, Starting on Mon04/04/22 at 1352, Until Mon04/04/22 at 1634, Anesthesia Intra-op, Routine Given 04/04/2022 2:33 PM EDT 10 mg Given 04/04/2022 2:09 PM EDT 5 mg fentaNYL (pf) (50 mcg/mL) multi-dose Given 04/04/2022 2:06 PM ED T 50 mcg injection Intravenous, PRN, Starting on Mon04/04/22 at 1255, Until Mon04/04/22 at 1634, Anesthesia Intra-op, Routine Given 04/04/2022 12:55 PM EDT 50 mcg heparin (porcine) (1,000 units/mL) Given 04/04/2022 2:39 PM EDT 1,500 Units injection Intravenous, PRN, Starting on Mon04/04/22 at 1429, Until Mon04/04/22 at 1634, Anesthesia Intra-op, Routine Given 04/04/2022 2:29 PM EDT 6,000 Units lactated ringers infusion New Bag 04/04/2022 12:30 PM EDT 1,000 mL, at 100 mL/hr, Intravenous, CONTINUOUS, Starting on Mon04/04/22 at 1115, Until Mon04/05/22 at 0148, Day of Surgery (Day of Procedure) lactated ringers infusion New Bag 04/04/2022 1:28 PM EDT Intravenous, CONTINUOUS PRN, Starting on Mon04/04/22 at 1328, Until Mon04/04/22 at 1634, Anesthesia Intra-op lidocaine (pf) (Xylocaine) (20 mg/mL) 2% Given 04/04/2022 12:55 PM EDT 100 mg injection syringe Intravenous, PRN, Starting on Mon04/04/22 at 1255, Until Mon04/04/22 at 1634, Anesthesia Intra-op, Routine ondansetron (pf) (Zofran) (2 mg/mL) inje ction Given 04/04/2022 3:32 PM EDT 4 mg Intravenous, PRN, Starting on Mon04/04/22 at 1305, Until Mon04/04/22 at 1634, Anesthesia Intra-op, Routine Given 04/04/2022 1:05 PM EDT 4 mg propofoL (Diprivan) (10 mg/mL) New Bag 04/04/2022 1:05 PM 25 m cg/kg/min 10.11 mL/hr infusion EDT Intravenous, CONTINUOUS PRN, Starting on Mon04/04/22 at 1305, Until Mon04/04/22 at 1634, Anesthesia Intra-op, Routine propofoL (Diprivan) 10 mg/mL bolus injection Given 2:06 PM EDT 50 mg (Anesthesia) Intravenous, PRN, Starting on Mon04/04/22 at 1255, Until Mon04/04/22 at 1634, Anesthesia Intra-op Given 04/04/2022 12:55 PM EDT 200 mg rocuronium (Zemuron) (10 mg/mL) multi-dose Given 04/04/2022 2:06 PM EDT 20 mg injection Intravenous, PRN, Starting on Mon04/04/22 at 1255, Until Mon04/04/22 at 1634, Anesthesia Intra-op, Routine Given 04/04/2022 12:55 PM EDT 50 mg sugammadex (Bridion) 100 mg/mL injection Given 04/04/2022 3:32 PM EDT 200 mg Intravenous, PRN, Starting on Mon04/04/22 at 1532, Until Mon04/04/22 at 1634, Anesthesia Intra-op, Routine documented in this encounter Care Teams Inflated Pad Buffer Relationship Specialty Start Date End Date Odalys Escobar APRN PCP - General Family Medicine 11/26/20 [address] [place] [address] documented as of this encounter
--- OUTSIDE RECORDS SUMMARY | 2022-10-04 12:23 | XMS_ITS | Encounter Summary ---
:1975 Author Organization [facility] [place] [address] Care Team Providers Name Role Phone Malgorzata Orellana APRN Primary Care Provider Encounter Details Date Type Department Care Team Description 07/02/2019 Telephone Endocrinology at [facility] C Medardo [place]le, [place] [phone] Social History Tobacco Use Types Packs/Day Years Used Date Smoking Tobacco: Every Day Cigarettes 1 Smokeless Tobacco: Never Sex Assigned at Date Recorded Female 12/12/2021 11:37 AM EST documented as of this encounter Miscellaneous Notes Telephone Encounter - Medardo Gayle RN - 07/03/2019 9:59 AM EDT Left voicemail on pt's home phone and mobile number letting her know Dr Lucas would be getting back to her about her labs today, per Dr Lucas's request. Telephone Encounter - Medardo Gayle RN - 07/02/2019 10:45 AM EDT Pt left voicemail requesting a callback from Dr Lucas to go over her test results from the . Pt reports her psychiatrist is getting on her case wanting to know the results. Her psychiatrist wantsto figure out her meds but says she can't until she knows what is going on with the thyroid. documented in this encounter Plan of Treatment Upcoming Encounters Date Type Specialty Care Team Description 11/21/2022 Appointment Radiology Gricel Stoddard APRN [place], [place] [address] (Wo rk) documented as of this encounter Visit Diagnoses Not on filedocumented in this encounter Care Teams Printer Assistant Relationship Specialty Start Date End Date Malgorzata Orellana APRN PCP - General Internal Medicine 03/22/19 10/13/20 [address] [place] [address] documented as of this encounter
--- OUTSIDE RECORDS SUMMARY | 2022-10-04 12:23 | XMS_ITS | Encounter Summary ---
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 and neuromodulators: consider 14 day trial rifaximin for IBS-D -recommend tobacco cessation -Review AVS for recommendations on functional bowel disorders and techniques to address common GI symptoms. Trial each for at least 30 days. At the end of 30 days, if it is partially/totally effective for symptoms, keep using and try next agent. If not effective at all, stop using and try next recommendation. -continue to follow up with PCP and other healthcare providers regarding comorbid concerns -all medication refill requests should be through PCP -When to go to ER for urgent evaluation: new/severe abdominal/chest pain, fevers, inability to maintain PO hydration or manage secretions, feeling like food is stuck in chest >1-2 hours, large amounts of blood/black tarry stools, loss of consciousness, etc We discussed that complete symptom relief may not be a fully achievable goal for this chronic condition, but that improvement in quality of life, healthy days at work and family functions, and also general symptom improvement may be more reasonable goals. We discussed that treatments should be tried individually and for periods of at least 4-8 weeks to truly assess symptom response. I did my best to answer questions to the fullest ability. We discussed that recommended treatments should be tried individually for at least three months at a time to truly assess for a meaningful response, or as long as tolerated, before changing therapy. RTC with me when all testing has been complete by at least 3 weeks The patient was located in [place] at the time of their visit. TIME SPENT WITH PATIENT Time spent reviewing records prior to this encounter on day of appointment: 5 minutes Time spent during encounter with patient including counselin minutes Time spent documenting encounter after office visit: 10 minutes Daphnie Sabillon APRN Formerly [facility] [place] [id number] documented in this encounter Plan of Treatment Upcoming Encounters Date Type Specialty Care Team Description 11/21/2022 Appointment Radiology Gricel Stoddard APRN [facility] [place], [place] [address] (Wo rk) Scheduled Orders Name Type Priority Associated Diagnoses Order S chedule ENDOSCOPY CASE Procedures Routine Persistent depressive Orde red: 01/03/2022 REQUEST: EGD, UPPER GI disorder ENDOSCOPY, Bipolar affective COLONOSCOPY, disorder, remission DIAGNOSTIC status unspecifi ed Diarrhea, unspecified type Irritable bowel syndrome with di arrhea Bloating Poor appetite Early satiety Unintentional weight loss Calprotectin, Stool Lab Routine Persistent depressive Expected: disorder 01/03/2022, Bipolar affective Expires: 0 07/03/2023 disorder, remission status unspecifi ed Diarrhea, unspecified type Irritable bowel syndrome with di arrhea Bloating Poor appetite Early satiety Unintentional weight loss C. Difficile Screen Microbiology Routine Persistent depressive Expected: disorder 01/03/2022 Bipolar affective (Approxima te), disorder, remission Expires: 07/03/2023 status unspecifi ed Diarrhea, unspecified type Irritable bowel syndrome with di arrhea Bloating Poor appetite Early satiety Unintentional weight loss Giardia/Cryptosporidiu Microbiology Routine Persistent depress oskar Expected: m Antigens disorder 01/03/2022, ([facility]/CG[facility]/APD/[facility]) Bipolar affective Expi res: 07/03/2023 disorder, remission status unspecifi ed Diarrhea, unspecified type Irritable bowel syndrome with di arrhea Bloating Poor appetite Early satiety Unintentional weight loss Elastase, Stool Lab Routine Persistent depressive Exp ected: disorder 01/03/2022, Bipolar affective Expires: 0 07/03/2023 disorder, remission status unspecifi ed Diarrhea, unspecified type Irritable bowel syndrome with di arrhea Bloating Poor appetite Early satiety Unintentional weight loss Stool Culture Screen Microbiology Routine Persistent depressiv e Expected: ([facility]/CGP/APD/[facility]) disorder 01/03/2022, Bipolar affective Expires: 0 07/03/2023 disorder, remission status unspecifi ed Diarrhea, unspecified type Irritable bowel syndrome with di arrhea Bloating Poor appetite Early satiety Unintentional weight loss Scheduled Referrals Name Type Priority Associated Diagnoses Order S chedule Referral to Outpatient Referral Routine Persistent Ordered: Nutrition Services depressive di sorder 01/03/2022 Bipolar affective disorder, remission status unspecifi ed Diarrhea, unspecified type Irritable bowel syndrome with diarrhea Bloating Poor appetite Early satiety Unintentional weight loss documented as of this encounter Visit Diagnoses Diagnosis Diarrhea, unspecified type - Primary Persistent depressive disorder Bipolar affective disorder, remission st atus unspecified Irritable bowel syndrome with diarrhea Irritable bowel syndrome Bloating Flatulence, eructation, and gas pain Poor appetite Anorexia Early satiety Unintentional weight loss Loss of weight documented in this encounter Care Teams Loading Unit Operator Crimping Relationship Specialty Start Date End Date Odalys Escobar APRN PCP - General Family Medicine 11/26/20 [address] [place] [address] documented as of this encounter
--- OUTSIDE RECORDS SUMMARY | 2022-10-04 12:23 | XMS_ITS | Encounter Summary ---
:1975 Author Organization [facility] [place] [address] Care Team Providers Name Role Phone Odalys Escobar APRN Primary Care Provider Encounter Details Date Type Department Care Team Description 02/04/2022 Orders Only Neurosurgery at [facility] [place] [address] [place] [address] [place], [place] [address] (Nick spear) Social History Tobacco Use Types Packs/Day Years [...] Description 11/21/2022 Appointment Radiology Gricel Stoddard APRN [place], [place] [address] (Wo rk) documented as of this encounter Visit Diagnoses Not on filedocumented in this encounter Care Teams Winch Driver Relationship Specialty Start Date End Date Odalys Escobar APRN PCP - General Family Medicine 11/26/20 [place] [address] documented as of this encounter
--- OUTSIDE RECORDS SUMMARY | 2022-10-04 12:23 | XMS_ITS | Encounter Summary ---
:1975 Author Organization [facility] [place] [address] Care Team Providers Name Role Phone Luz Odalys TOSHIA Primary Care Provider Reason for Visit Reason Onset Date Comments Reminder Appointment 01/03/2022 Encounter Details Date Type Department Care Team Description 01/03/2022 Telephone Gastroenterology at [facility] Roz Hassan Reminder Appointment [facility] [place] [address] Social History Tobacco Use Types Packs/Day Years Used Date Smoking Tobacco: Every Day Cigarettes 1 Smokeless Tobacco: Never Alcohol Use Standard Drinks/Week Comments Yes 1 (1 standard drink = 0.6 oz pure alcoho l) 7 a week Sex Assigned at Date Recorded Female 12/12/2021 11:37 AM EST documented as of this encounter Miscellaneous Notes Telephone Encounter - Roz Hassan CCMA - 01/03/2022 8:57 AM EST Called patient to review medications and allergies for their upcoming gastroenterology Type of Appointment: Telehealth appointment. Reach Patient during MA Check: Yes Notes for the provider: Notes for the nurse: documented in this encounter Plan of Treatment Upcoming Encounters Date Type Specialty Care Team Description 11/21/2022 Appointment Radiology Gricel Stoddard APRN [facility], [place] [address] (Wo rk) documented as of this encounter Visit Diagnoses Not on filedocumented in this encounter Care Teams [employer] Relationship Specialty Start Date End Date Odalys Escobar APRN PCP - General Family Medicine 11/26/20 [place] [address] documented as of this encounter
--- OUTSIDE RECORDS SUMMARY | 2022-10-04 12:23 | XMS_ITS | Encounter Summary ---
:1975 Author Organization [facility] [place] [address] Care Team Providers Name Role Phone Malgorzata Orellana APRN Primary Care Provider Encounter Details Date Type Department Care Team Description 10/31/2019 Notes Only Endocrinology at [facility] C Medardo Gayle, [place] [address] Social History Tobacco Use Types Packs/Day Years Used Date Smoking Tobacco: Every Day Cigarettes 1 Smokeless Tobacco: Never Sex Assigned at Date Recorded Female 12/12/2021 11:37 AM EST documented as of this encounter Progress Notes Medardo Gayle RN - 10/31/2019 11:11 AM EST Faxed lab orders for T3 total, free T4, and TSH to [facility] lab. Confirmation received @[id number]. documented in this encounter Plan of Treatment Upcoming Encounters Date Type Specialty Care Team Description 11/21/2022 Appointment Radiology Gricel Stoddard APRN [place], [place] [address] (Wo rk) documented as of this encounter Visit Diagnoses Not on filedocumented in this encounter Care Teams Siphon Operator Relationship Specialty Start Date End Date Malgorzata Orellana APRN PCP - General Internal Medicine 03/22/19 10/13/[address] [place] [address] documented as of this encounter
--- OUTSIDE RECORDS SUMMARY | 2022-10-04 12:23 | XMS_ITS | Encounter Summary ---
:1975 Author Organization [facility] [place] [address] Care Team Providers Name Role Phone Odalys Escobar APRN Primary Care Provider Encounter Details Date Type Department Care Team Description 02/22/2022 Telephone Gastroenterology at [facility] [place] [address] Social History Tobacco Use Types Packs/Day Years Used Date Smoking Tobacco: Every Day Cigarettes 0.5 Smokeless Tobacco: Never Alcohol Use Standard Drinks/Week Comments Yes 1 (1 standard drink = 0.6 oz pure alcoho l) 7 a week Sex Assigned at Date Recorded Female 12/12/2021 11:37 AM EST documented as of this encounter Miscellaneous Notes Telephone Encounter - Tenisha Parker - 02/22/2022 12:52 PM EDT Franchesca Dickson [id number] Diagnosis/Indication: schedule EGD/colonoscopy with MAC 1. Have you ever had a/an Upper Endoscopy & Colonoscopy before? Yes: Date 03/2019 in [place] If yes, did you have any problems with the procedure? No What type of sedation was used: Other: unknown 2. Do you take any blood thinners or have you been diagnosed with a bleeding disorder that increasesyour risk of bleeding with procedures? No 3. Do you have a Pacemaker or Defibrillator device? No 4. Are you a diabetic? No 5. Do you have any Allergies to Eggs, Latex or Medications? Yes: EDH 6. Do you take any Oral Iron Supplements (Including multi-vitamins)? No 7. Do you have a history of three or more abdominal surgeries? Yes 3 8. Have you had a problem with sedation or anesthesia? No 9. Do you use a c-pap machine or oxygen tank? Neither 10. Do you take prescription narcotic pain medications, including suboxone or methodone? No 11. Do you have a preference regarding the gender of your provider? No Preference 12. Is there any other information you would like to us to note for the provider and nursing team who will perform your case? No 13. Say to patient: You must have a responsible democrat who will drive you to your procedure, stay on campus for the entire duration of your procedure, and drive you home from your procedure? *Please Verify the height and weight, and adjust if height and/or weight have changed* Estimated body mass index is 28.43 kg/m?? as calculated from the following: Height as of 12/02/21: 154.9 cm (5' 0.98). Weight as of 12/02/21: 68.2 kg (150 lb 6.4 oz). *Delete if not needed* Height: 5'1 Weight: 140 BMI: 26.4 Age:46 y.o. documented in this encounter Plan of Treatment Upcoming Encounters Date Type Specialty Care Team Description 11/21/2022 Appointment Radiology Gricel Stoddard APRN [facility] [place], [place] [address] (Wo rk) documented as of this encounter Visit Diagnoses Not on filedocumented in this encounter Care Teams Senior Windows Engineer Relationship Specialty Start Date End Date Odalys Escobar APRN PCP - General Family Medicine 11/26/20 [place] [address] documented as of this encounter
--- OUTSIDE RECORDS SUMMARY | 2022-10-04 12:23 | XMS_ITS | Encounter Summary ---
:1975 Author Organization [facility] [place] [address] Care Team Providers Name Role Phone Malgorzata Orellana APRN Primary Care Provider Reason for Referral Diagnostic Test (Routine) - Closed Specialty Diagnoses / Procedures Referred By Contact Refer red To Contact Radiology Diagnoses Hyperthyroidism Ashly Lucas, DO [facility] Rad Nuclear Med Procedures NM I-123 Thyroid Imaging w Uptake [facility] [place] [address] [place] [address] Referral ID Status Reason Start Date Expiration Date Visits V isits Requested Authorized [id number] Closed Specialty 06/14/2019 06/13/2020 1 1 Service Requested Reason for Visit Diagnostic Test (Routine) - Closed Specialty Diagnoses / Procedures Referred By Contact Refer red To Contact Radiology Diagnoses Hyperthyroidism Ashly Lucas, DO [facility] Rad Nuclear Med Procedures NM I-123 Thyroid Imaging w Uptake [facility] [place] [address] [place] [address] Referral ID Status Reason Start Date Expiration Date Visits V isits Requested Authorized [id number] Closed Specialty 06/14/2019 06/13/2020 1 1 Service Requested Encounter Details Date Type Department Care Team Description 06/25/2019 Hospital Encounter Nuclear Medicine at [facility], [place] MD [facility] [place] [address] DEPT. [phone] [place], [place] [address] Social History Tobacco Use Types Packs/Day Years Used Date Smoking Tobacco: Every Day Cigarettes 1 Smokeless Tobacco: Never Sex Assigned at Date Recorded Female 12/12/2021 11:37 AM EST documented as of this encounter Medications at Time of Discharge Medication Sig Dispensed Refills Start Date End Date VIIBRYD 40 mg Tablet TAKE 1 TABLET BY 3 9 MOUTH ONCE DAILY ALPRAZolam (XANAX) 1 mg Take 1 mg by mouth 0 04/2019 Tablet as needed. OLANZapine (ZYPREXA) 5 mg Take 10 mg by mouth 0 0 05/28/2019 Tablet nightly. lamoTRIgine (LAMICTAL) Take 200 mg by mouth 0 05/28/2020 150 mg Tablet nightly. lithium (ESKALITH) 450 mg Take 900 mg by mouth 0 08/27/2018 05/28/2020 Tablet Sustained Release nightly. OLANZapine (ZYPREXA) 10 Take 10 mg by mouth 2 10/201805/28/2020 mg Tablet nightly. traZODone (DESYREL) 50 mg 0 04/09/2009 05/28/2020 tablet citalopram (CELEXA) 40 mg 0 04/09/2009 05/28/2020 tablet omeprazole (PRILOSEC OTC) 0 04/09/2009 10/30/2020 20 mg tablet documented as of this encounter Plan of Treatment Upcoming Encounters Date Type Specialty Care Team Description 11/21/2022 Appointment Radiology Gricel Stoddard APRN [facility] [place], [place] [address] (Wo rk) documented as of this encounter Procedures Procedure Name Priority Date/Time Associated Diagnosis Comme nts NM I 123 THYROID Routine 06/25/2019 1:50 PM Hyperthyroidism Re sults for this IMAGING WITH UPTAKE EDT procedur e are in the results section. documented in this encounter Results NM I-123 Thyroid Imaging [...] For questions regarding this report, please contact [facility] number below. ? Electronically signed by: Samir Alcantara [facility] ([phone]), at 06/25/2019 4:20 PM Narrative 06/25/2019 4:20 [...] number below. Electronically signed by: Samir Alcantara [facility] ([phone]), at 06/25/2019 4:20 PM Mo Salinas MD IMG NM ORDERABLES documented in this encounter Visit Diagnoses Diagnosis Hyperthyroidism Thyrotoxicosis without mention of goiter or other cause, without mention of thyrotoxic crisis or storm documented in this encounter Care Teams Generalist Relationship Specialty Start Date End Date Malgorzata Orellana APRN PCP - General Internal Medicine 03/22/19 10/13/20 [address] [place] [address] documented as of this encounter
--- OUTSIDE RECORDS SUMMARY | 2022-10-04 12:23 | XMS_ITS | Encounter Summary ---
:1975 Author Organization [facility] [place] [address] Care Team Providers Name Role Phone Malgorzata Orellana APRN Primary Care Provider Encounter Details Date Type Department Care Team Description 05/27/2020 Telephone Endocrinology at [facility] Kaia [address], [place] [address] Social History Tobacco Use Types Packs/Day Years Used Date Smoking Tobacco: Every Day Cigarettes 1 Smokeless Tobacco: Never Sex Assigned at Date Recorded Female 12/12/2021 11:37 AM EST documented as of this encounter Miscellaneous Notes Telephone Encounter - Kaia Paredes, [facility] - 05/27/2020 10:36 AM EDT GAP Accounts Clerk Pre-Telemedicine Phone Note [x] Patient not reached [] Patient reached and the following information was reviewed/obtained per protocol: [] Confirmed patient name and date of [] Confirmed telemedicine kandi (Vidyo and Virtual Visit) is downloaded and functioning [] Confirmed location of patient - TeleVisit is taking place in [] [place] [] [place] [] If not on [facility], working on signing up for [facility] [] Confirmed has completed any pre-visit questionnaires [] If has not received required pre-visit questionnaires, send via [facility] [] Reviewed patient medications [] Documented self-reported vitals: [] Weight: [] Height [] pulse recorded: [] Other information or concerns documented in this encounter Plan of Treatment Upcoming Encounters Date Type Specialty Care Team Description 11/21/2022 Appointment Radiology Gricel Stoddard APRN [facility] [place], [place] [address] (Wo rk) documented as of this encounter Visit Diagnoses Not on filedocumented in this encounter Care Teams Print Operator Relationship Specialty Start Date End Date Malgorzata Orellana APRN PCP - General Internal Medicine 03/22/19 10/13/[address] [place] [address] [place] [address] documented as of this encounter
--- OUTSIDE RECORDS SUMMARY | 2022-10-04 12:23 | XMS_ITS | Encounter Summary ---
:1975 Author Organization [facility] [place] [address] Care Team Providers Name Role Phone Odalys Escobar APRN Primary Care Provider Encounter Details Date Type Department Care Team Description 01/03/2022 Telephone Gastroenterology at [facility] [place] [address] Social History Tobacco Use Types Packs/Day Years Used Date Smoking Tobacco: Every Day Cigarettes 1 Smokeless Tobacco: Never Alcohol Use Standard Drinks/Week Comments Yes 1 (1 standard drink = 0.6 oz pure alcoho l) 7 a week Sex Assigned at Date Recorded Female 12/12/2021 11:37 AM EST documented as of this encounter Miscellaneous Notes Telephone Encounter - Amelia Llanos - 01/03/2022 12:36 PM EST Lab orders faxed to [facility] at the request of LLOYD Sabillon. documented in this encounter Plan of Treatment Upcoming Encounters Date Type Specialty Care Team Description 11/21/2022 Appointment Radiology Gricel Stoddard APRN [place], [place] [address] (Wo rk) documented as of this encounter Visit Diagnoses Not on filedocumented in this encounter Care Teams Paper Goods Machine Set Up Operator Relationship Specialty Start Date End Date Odalys Escobar APRN PCP - General Family Medicine 11/26/20 [address] [place] [address] documented as of this encounter
--- OUTSIDE RECORDS SUMMARY | 2022-10-04 12:23 | XMS_ITS | Encounter Summary ---
:1975 Author Organization [facility] [place] [address] Care Team Providers Name Role Phone Unavailable Primary Care Provider Unavailable Encounter Details Date Type Department Care Team Description 10/29/2020 Telephone Endocrinology at [facility] [place] [address] Social History Tobacco Use Types Packs/Day Years Used Date Smoking Tobacco: Every Day Cigarettes 1 Smokeless Tobacco: Never Sex Assigned at Date Recorded Female 12/12/2021 11:37 AM EST documented as of this encounter Miscellaneous Notes Telephone Encounter - Mecca Becker RMA - 10/29/2020 4:46 PM EST Franchesca would like TH visit due to bad weather. Sent to secretaries documented in this encounter Plan of Treatment Upcoming Encounters Date Type Specialty Care Team Description 11/21/2022 Appointment Radiology Gricel Stoddard APRN [place], [place] [address] (Wo rk) documented as of this encounter Visit Diagnoses Not on filedocumented in this encounter
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
--- OUTSIDE RECORDS SUMMARY | 2022-10-04 12:23 | XMS_ITS | Encounter Summary ---
:1975 Author Organization [facility] [place] [address] Care Team Providers Name Role Phone Odalys Escobar APRN Primary Care Provider Encounter Details Date Type Department Care Team Description 10/22/2021 Ancillary Procedure [facility] [address] [id number] [phone] (Nick spear) Social History Tobacco Use Types Packs/Day Years Used Date Smoking Tobacco: Every Day Cigarettes 1 Smokeless Tobacco: Never Sex Assigned at Date Recorded Female 12/12/2021 11:37 AM EST documented as of this encounter Plan of Treatment Upcoming Encounters Date Type Specialty Care Team Description 11/21/2022 Appointment Radiology Gricel Stoddard APRN [place], [place] [address] (Nick spear) documented as of this encounter Procedures Procedure Name Priority Date/Time Associated Diagnosis Comme nts FILM LIBRARY Routine 10/22/2021 12:00 AM Results for this STORAGE ONLY MR EST procedure ar e in HEAD the results section. documented in this encounter Results Film Library- Storage Only MR Head (10/22/2021 12:00 AM EST) Specimen (Source) Anatomical Location Collection Method / Collectio n Time Received Time / Laterality Volume Narrative RADHA HERZOG - 10/29/2021 8:44 AM EST This exam is auto-finalizing. It's purpo se is for storage only. Odalys Escobar APRN IMG FILM LIBRARY ORDERABLES Performing Organization Address City/State/ZIP Code Phon e Number [place], [place] documented in this encounter Visit Diagnoses Not on filedocumented in this encounter Care Teams Inclusion Teacher Relationship Specialty Start Date End Date Odalys Escobar APRN PCP - General Family Medicine 11/26/20 Jez [facility] [place] [address] documented as of this encounter
--- OUTSIDE RECORDS SUMMARY | 2022-10-04 12:23 | XMS_ITS | Encounter Summary ---
:1975 Author Organization [facility] [place] [address] Care Team Providers Name Role Phone Odalys Escobar APRN Primary Care Provider Encounter Details Date Type Department Care Team Description 01/28/2022 Laboratory Appointment Lab 3L [facility] Cerebral aneurysm, nonruptured; [facility] Right internal [place] [address] Social History Tobacco Use Types [...] Description 11/21/2022 Appointment Radiology Gricel Stoddard APRN [place], [place] [address] (Wo rk) documented as of this encounter Procedures Procedure Name Priority Date/Time Associated Comments Diagnosis HC P2Y12 ANTIPLATELET Routine 01/28/2022 7:59 Cerebral aneurys m, Results for this ASSAY (VERIFYNOW) AM EDT nonruptured procedure are in the results section. HC HEMOGRAM Routine 01/28/2022 7:59 Right internal Results fo r this AM EDT carotid artery procedure are in aneurysm the results section. HC PARTIAL Routine 01/28/2022 7:59 Right internal Results fo r this THROMBOPLASTIN TIME AM EDT carotid artery proced ure are in aneurysm the results section. HC PROTHROMBIN TIME Routine 01/28/2022 7:59 Right internal Res ults for this AM EDT carotid artery procedure are in aneurysm the results section. BASIC METABOLIC PANEL Routine 01/28/2022 7:59 Right internal R esults for this (NON-FASTING) AM EDT carotid artery procedure ar e in aneurysm the results section. documented in this encounter Results (ABNORMAL) Hemogram (01/28/2022 7:59 AM EDT) Analysis Performed At Patho logist Time Signature WBC 10.8 (H) 4.0 - 9.5 [facility] x10(3)/[facility] LABORATORY RBC 4.65 4.00 - [place] IVORY 5.21 [facility] x10(6)/[facility] LABORATORY Hemoglobin 15.4 11.7 - [facility] IVORY 15.5 g/dL [facility] LABORATORY Hematocrit 45.8 35.7 - [place] IVORY 45.8 % [facility] LABORATORY MCV 98.5 (H) 82.6 - [facility] IVORY 94.4 [facility] LABORATORY MCH 33.1 (H) 27.1 - [facility] 32.0 pg [facility] LABORATORY MCHC 33.6 31.7 - [place] IVORY 35.0 g/dL [facility] LABORATORY Platelets 354 145 - 357 [place] IVORY x10(3)/[facility] LABORATORY RDWSD 50.1 (H) 37.0 - [facility] 46.0 [facility] LABORATORY RDWCV 13.6 11.5 - [place] IVORY 14.1 % [facility] LABORATORY MPV 10.0 7.6 - 12.9 [place] IVORY [facility] LABORATORY nRBC % Auto 0.0 % [facility] LABORATORY nRBC Abs Auto 0.000 0.000 - [employer] 0.000 [facility] x10(3)/[facility] LABORATORY Specimen Anatomical Collection Method Collection Time Receive d Time (Source) Location / / Volume Laterality Blood 01/28/2022 7:59 AM 8:17 EDT AM EDT Resulting Agency Comment Spec In Lab Gricel Stoddard APRN HEMATOLOGY ORDERABLES Performing Organization Address City/State/[place] [address] (ABNORMAL) Basic Metabolic Panel (non-fasting) (01/28/2022 7:59 AM EDT) P athologist Signature Glucose Lvl 116 65 - 199 [facility] mg/dL [facility] LABORATORY Comment: Diabetes: >=200 mg/dL plus symp toms BUN 18 8 - 18 mg/dL [facility] LABORATORY Creatinine 0.84 0.70 - 1.20 mg/dL [facility] LABORATORY Sodium 142 135 - 145 mmol/L [facility] LABORATORY Potassium 4.1 3.5 - 5.0 mmol/L [facility] LABORATORY Comment: Please note: ??Patients with WBC >100,00 0 may have falsely elevated Potassium levels. ??For accurate Potassium quantif ication in these patients send serum separator tube (gold top) for subsequent determinations. ??Contact the Clinical Chemistry Laboratory if there are any qu estions. Chloride 109 (H) 98 - 107 mmol/L [facility] LABORATORY CO2 21 (L) 22 - 31 mmol/L [facility] LABORATORY Anion Gap 12 5 - 15 mmol/L [facility] LABORATORY Calcium 9.0 8.5 - 10.5 mg/dL [facility] LABORATORY Estimated GFR 84 >=60 mL/min/1.73 m?? [facility] LABORATORY Comment: This patient? s estimated glomerular [...] Agency Comment Spec In Lab Gricel Stoddard APRN CHEMISTRY ORDERABLES Performing Organization Address [facility] [place] [address] Prothrombin Time (01/28/2022 7:59 AM EDT) P athologist Signature PT 10.3 9.4 - 12.5 [facility] LABORATORY INR 0.9 [facility] LABORATORY Comment: An INR <2.0 indicates adequate [...] Resulting Agency Comment Spec In Lab Gricel De Oliveiraer LEGAL ASSISTANT HEMATOLOGY ORDERABLES Performing Organization Address [facility] [address] APTT (01/28/2022 7:59 AM EDT) P athologist Signature PTT 35 25 - 37 sec [facility] LABORATORY Comment: The PTT [...] Comment Spec In Lab Gricel L Stoddard LEGAL ASSISTANT HEMATOLOGY ORDERABLES Performing Organization Address City/[facility]/[place] [address] P2Y12 Antiplatelet ([facility]) (01/28/2022 7:59 AM EDT) athologist Signature P2Y12 158 PRU [facility] LABORATORY Comment: Test results [...] / Volume Laterality Blood 01/28/2022 7:59 AM 8:28 EDT AM EDT Resulting Agency Comment Spec In Lab Gricel Stoddard APRN HEMATOLOGY ORDERABLES Performing Organization Address City/[facility]/[place] [address] documented in this encounter Visit Diagnoses Diagnosis Cerebral aneurysm, nonruptured Right internal carotid artery aneurysm Cerebral aneurysm, nonruptured documented in this encounter Care Teams Well Site Drilling Engineer Relationship Specialty Start Date End Date Odalys Escobar APRN PCP - General Family Medicine 11/26/20 [place] [address] documented as of this encounter
--- OUTSIDE RECORDS SUMMARY | 2022-10-04 12:23 | XMS_ITS | Encounter Summary ---
:1975 Author Organization [facility] [place] [address] Care Team Providers Name Role Phone Malgorzata Orellana APRN Primary Care Provider Encounter Details Date Type Department Care Team Description 01/17/2020 Orders Only Endocrinology at [facility] Ashly Jaquez, [facility] [place] [address] ENDOCRINOLOGY DEPT [phone] [place], [place] [address] (Wo rk) Social History Tobacco Use Types Packs/Day Years Used Date Smoking Tobacco: Every Day Cigarettes 1 Smokeless Tobacco: Never Sex Assigned at Date Recorded Female 12/12/2021 11:37 AM EST documented as of this encounter Plan of Treatment Upcoming Encounters Date Type Specialty Care Team Description 11/21/2022 Appointment Radiology Gricel Stoddard APRN [place], [place] [address] (Wo rk) documented as of this encounter Visit Diagnoses Not on filedocumented in this encounter Care Teams Overhead Door Technician Relationship Specialty Start Date End Date Malgorzata Orellana APRN PCP - General Internal Medicine 03/22/19 10/13/20 [address] [place] [address] documented as of this encounter
--- OUTSIDE RECORDS SUMMARY | 2022-10-04 12:23 | XMS_ITS | Encounter Summary ---
:1975 Author Organization [facility] [place] [address] Care Team Providers Name Role Phone Odalys Escobar APRN Primary Care Provider Reason for Visit Reason Comments Medication Refill Encounter Details Date Type Department Care Team Description 12/28/2020 Refill Endocrinology at [facility] Antoni Roth MD [facility] [place] [address] [address] [phone] ENDOCRINOLOGY [place], [place] [address] Social History Tobacco Use Types Packs/Day Years Used Date Smoking Tobacco: Every Day Cigarettes 1 Smokeless Tobacco: Never Sex Assigned at Date Recorded Female 12/12/2021 11:37 AM EST documented as of this encounter Plan of Treatment Upcoming Encounters Date Type Specialty Care Team Description 11/21/2022 Appointment Radiology Gricel Stoddard APRN [place], [place] [address] (Wo rk) documented as of this encounter Visit Diagnoses Diagnosis Subclinical hyperthyroidism Thyrotoxicosis without mention of goiter or other cause, without mention of thyrotoxic crisis or storm documented in this encounter Care Teams Social Contact Worker Relationship Specialty Start Date End Date Odalys Escobar APRN PCP - General Family Medicine 1/14/21 [place] [address] documented as of this encounter
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
--- OUTSIDE RECORDS SUMMARY | 2022-10-04 12:23 | XMS_ITS | Encounter Summary ---
:1975 Author Organization [facility] [place] [address] Care Team Providers Name Role Phone Malgorzata Orellana APRN Primary Care Provider Encounter Details Date Type Department Care Team Description 01/17/2020 Orders Only Endocrinology at [facility] Ashly Jaquez, [place] [address] ENDOCRINOLOGY [place], [place] [address] (Wo rk) Social History Tobacco Use Types Packs/Day Years Used Date Smoking Tobacco: Every Day Cigarettes 1 Smokeless Tobacco: Never Sex Assigned at Date Recorded Female 12/12/2021 11:37 AM EST documented as of this encounter Plan of Treatment Upcoming Encounters Date Type Specialty Care Team Description 11/21/2022 Appointment Radiology Gricel Stoddard APRN [place], [place] [address] (Wo rk) documented as of this encounter Visit Diagnoses Diagnosis Hyperthyroidism Thyrotoxicosis without mention of goiter or other cause, without mention of thyrotoxic crisis or storm documented in this encounter Care Teams Process Artist Relationship Specialty Start Date End Date Malgorzata Orellana APRN PCP - General Internal Medicine 03/22/19 10/13/[address] [place] [address] documented as of this encounter
--- OUTSIDE RECORDS SUMMARY | 2022-10-04 12:23 | XMS_ITS | Encounter Summary ---
:1975 Author Organization [facility] [place] [address] Care Team Providers Name Role Phone Odalys Escobar APRN Primary Care Provider Reason for Referral Diagnostic Test (Routine) - Closed Specialty Diagnoses / Procedures Referred By Contact Refer red To Contact Radiology Diagnoses Right internal carotid artery aneurysm Gricel Stoddard APRN [facility] Interventionl Rad Procedures [place] [address] [place] [address] Referral ID Status Reason Start Date Expiration Date Visits V isits Requested Authorized [id number] Closed Specialty 03/14/2022 11/12/2022 1 1 Service Requested Reason for Visit Auth/Cert Specialty Diagnoses / Procedures Referred By Contact Refer red To Contact Diagnoses Right internal carotid artery aneurysm RIGHT INTERNAL CAROTID ARTERY ANEURYSM Procedures PRO PERM OCCLUSION/EMBOLIZATION, PERCUT, SWISS MACHINIST @TRANSCATHETER OCCLUSION/EMBOLIZATION FOR TUMOR DESTRUCTION Referral ID Status Reason Start Date Expiration Date Visits Requ ested Visits Authorized [id number] 1 1 Encounter Details Date Type Department Care Team Description 04/04/2022 Hospital Encounter Radiology at [facility] Stoddard, Gricel L, Right internal [facility] DAT INSTRUCTOR carotid artery [address] [facility] [place], [place] [address] [address] NEUROSURGERY [phone] [place] [address] Social History Tobacco Use Types Packs/Day Years [...] aneurysm procedure. documented as of this encounter Progress Notes Geno Schulz MD - 04/04/2022 6:48 PM EDT BRIEF INTERVENTIONAL RADIOLOGY PROGRESS NOTE: Ms. Dickson is a 46 yo female POD0 s/p flow diversion of a right paraclinoid ICA aneurysm via right HOT POND OPERATOR access with Dr. Bloom. Right HOT POND OPERATOR access was closed with 6 Fr Angioseal. Patient is currently on daily ASA and Plavix. While no groin hematoma was present s/p Angioseal deployment, patient had a persistent ooze from thesuperficial aspect of the incision. Distal pulses were intact. Syvek placement, sandbag application and manual pressure were all not successful in stopping the oozing. This author arrived at bedside at approximately 1825 hrs. The existing dressing was removed, and there was visible ongoing slow ooze from incision site. No hematoma on palpation, palpable femoral pulseand per nursing report, distal pulses remain intact. Patient reported slight tenderness to palpation. Incision site was cleaned with alcohol wipes and 4 cc of 2% 1:100,000 Lidocaine with epinephrine was superficially infiltrated in split fashion at sites of ongoing oozing. Manual pressure was applied for approximately three minutes. Site observation for five minutes demonstrated cessation of active oozing, minimal blood visualized at skin incision site. Syvek applied, followed by gauze and Tegaderm dressing. The patient tolerated this well. Dr. Bloom was updated. Geno Schulz MD Diagnostic and Interventional Radiology (PGY 6) Personal Pager: [phone] IR Team Pager: [phone] documented in this encounter Plan of Treatment Upcoming Encounters Date Type Specialty Care Team Description 11/21/2022 Appointment Radiology Gricel Stoddard, [place] [address] (Wo rk) documented as of this encounter Procedures Procedure Name Priority Date/Time Associated Comments Diagnosis IR EMBOLIZATION Routine 04/04/2022 4:36 PM Right internal Resu lts for this CEREBRAL EDT carotid artery procedure are in aneurysm the results section. documented in this encounter Results IR Embolization Cerebral (04/04/2022 [...] nonruptured documented in this encounter Care Teams Ball Sorter Relationship Specialty Start Date End Date Odalys Escobar APRN PCP - General Family Medicine 11/26/20 [place] [address] documented as of this encounter
--- OUTSIDE RECORDS SUMMARY | 2022-10-04 12:23 | XMS_ITS | Encounter Summary ---
:1975 Author Organization [facility] [place] [address] Care Team Providers Name Role Phone Malgorzata Orellana APRN Primary Care Provider Encounter Details Date Type Department Care Team Description 08/21/[address] [facility] Ashly Jaquez, [facility] [place] [address] ENDOCRINOLOGY DEPT [phone] [place], [place] [address] (Wo rk) Social History Tobacco Use Types Packs/Day Years Used Date Smoking Tobacco: Every Day Cigarettes 1 Smokeless Tobacco: Never Sex Assigned at Date Recorded Female 12/12/2021 11:37 AM EST documented as of this encounter Plan of Treatment Upcoming Encounters Date Type Specialty Care Team Description 11/21/2022 Appointment Radiology Gricel Stoddard APRN [place], [place] [address] (Wo rk) documented as of this encounter Visit Diagnoses Diagnosis Medication side effect Unspecified adverse effect of unspecifie d drug, medicinal and biological substance documented in this encounter Care Teams Remelter Relationship Specialty Start Date End Date Malgorzata Orellana APRN PCP - General Internal Medicine 03/22/19 10/13/20 [place] [address] documented as of this encounter
--- OUTSIDE RECORDS SUMMARY | 2022-10-04 12:23 | XMS_ITS | Encounter Summary ---
:1975 Author Organization [facility] [place] [address] Care Team Providers Name Role Phone Luz Odalys TOSHIA Primary Care Provider Encounter Details Date Type Department Care Team Description 11/26/2020 Office Visit Endocrinology at [facility] Antoni Roth, [facility] [place] [address] [place] [address] [place] [address] Social History Tobacco Use Types Packs/Day Years Used Date Smoking Tobacco: Every Day Cigarettes 1 Smokeless Tobacco: Never Sex Assigned at Date Recorded Female 12/12/2021 11:37 AM EST documented as of this encounter Last Filed Vital Signs Vital Sign Reading Time Taken Comments Blood Pressure 115/77 11/26/2020 10:40 AM EST Pulse 75 11/26/2020 10:40 AM EST Temperature 36 ??C (96.8 ??F) 11/26/2020 10:40 AM EST Respiratory Rate - - Oxygen Saturation 96% 11/26/2020 10:40 AM EST Inhaled Oxygen Concentration - - Weight 62.3 kg (137 lb 6.4 oz) 11/26/2020 10:40 AM EST Height 154.9 cm (5' 1) 11/26/2020 10:40 AM EST Body Mass Index 25.96 11/26/2020 10:40 AM EST documented in this encounter Progress Notes Antoni Jones MD - 11/26/2020 10:30 AM EST Endocrinology Outpatient Follow Up Date: 11/26/20 Name:??Franchesca Dickson :??1975 ?? Reason for initial referral: suppressed TSH in the setting of thyroid nodule. ?? ID: Franchesca??Yessi is a 45??year old female with a medical history significant for??intermittently abnormal TFTs, depression, anxiety, GERD, bipolar disorder, nephrolithiasis,??fibromyalgia,??cholelithiasis status-post cholecystectomy, and ovarian cyst status-post oophorectomy,??was??initially??referred??to endocrine clinic in May, for supppressed??TSH in the setting of thyroid nodule on thyroid US.??Franchesca followed Dr. Lucas until summer. ?? Franchesca had long standing h/o intermittent abnormalities in TFTs for 6 years. She states thyroid hormones are always like a yo-yo.??She??was reportedly diagnosed with hyperthyroidism approximately??6??years ago, but??was not treated with antithyroid medication and the issue reportedly subsided on itsown.??In mar, 2019, she developed a myriad of symptoms (severe diarrhea, worsening of her underlyingdepression and anxiety, with difficultly controlling her anger,??extreme hot flashes and waking up at??night drenched in sweat), work up revealed subclinical hyperthyroidism and 0.8 cm left thyroid nodule, and was referred to endocrine clinic. ?? Work up so far: 06/03/19:??TSH 0.14, FT4 1.26, TT3 127 and TSI <0.10 KRISHNAMURTHY uptake scan (06/25/19):??Normal thyroid morphology and low end of normal thyroid uptake of 11%. 08/05/19:??TSH 0.09, FT4 1.19, TPO <28, TT3 133 08/30/19: Started on Methimazole 5 mg daily due to suppressed TSH and persistent hyperthyroid symptoms 10/24/19: TSH 0.32, FT4 1.03, TT3 152 01/16/20:??TSH 6.82, FT4 0.67, TT3 145; Reduced Methimazole to 2.5 mg daily 04/16/20:??Discontinued Methimazole 05/01/20: TSH 0.35, FT4 1.05 05/05/20:??Restarted Methimazole 2.5 mg daily for symptoms of intermittent palpitations and diarrhea. 06/05/20: TSH 0.76; FT 0.91; TT3 132 06/26/20: TSH 0.65; FT4 1.04; TT3 145; TSI ab<1; TPO ab <28; celiac ab negative 10/30/20: Discontinued methimazole due to lack of symptomatic relief with methimazole and due to thefact that prior work up was negative for graves disease. Interim Events: - Stopped taking methimazole a month ago. - Reports intermittent palpitations, takes propranolol as needed. - She feels the same with or without methimazole. - Hasn't been on lithium for more than 2 years, denies taking iodine containing supplements or biotin. ?? Review of symptoms: Constitutional: fatigue +, no weight loss since last appointment. Endocrine: No heat intolerance, no goitre Eyes: No recent vision change ENT: intermittent difficulty swallowing + Cardiovascular: intermittent palpitations + Respiratory: No shortness of breath GI: no diarrhea Neurological: no tremors Patient Active Problem List Diagnosis Date Noted ??? Bipolar disorder 05/28/2020 ??? Restless leg syndrome 05/28/2020 ??? Persistent depressive disorder 10/01/2018 ??? CIS - Anxiety/depression ??? CIS - kidney stones ??? CIS - Knee arthritis ??? CIS - Obesity ??? CIS - subclinical hyperthyroidism 2006 Past Surgical History: Procedure Laterality Date ??? CREATED BY INTERFACE x2 in 1997 and 2000 Procedure Date: Unknown Allergies Allergen Reactions ??? Erythromycin ??? Erythromycin Base CIS - Nausea/Vomiting ??? Paroxetine Hcl CIS - PALPITATIONS, INSOMNIA ??? Sulfa (Sulfonamide Antibiotics) CIS - Hives ??? Sulfur ??? Tree Nut Rash No family history on file. Social History Tobacco Use ??? Smoking status: Current Every Day Smoker Packs/day: 1.00 ??? Smokeless tobacco: Never Used Substance Use Topics ??? Alcohol use: Not on file ?? Current Medications ??? propranoloL (Inderal) 10 mg Tablet ??? pantoprazole EC (Protonix) 40 mg Tablet, Delayed Release (E.C.) ??? cariprazine (Vraylar) 1.5 mg Capsule ??? topiramate (Topamax) 100 mg Tablet ??? VIIBRYD 40 mg Tablet ??? ALPRAZolam (XANAX) 1 mg Tablet ??? OLANZapine (ZYPREXA) 5 mg Tablet Imaging: Thyroid US from Mar, 2019: Heterogeneous thyroid gland with 0.8 cm discrete complex left thyroid nodule. Office based Thyroid US from 06/03/19: Normal sized thyroid with heterogenous appearance, and a hypoechoic left thyroid nodule measuring??0.7 x 0.3 x 0.6 cm with small intranodular calcifications. RAIU scan from 06/2019: Normal thyroid morphology and low end of normal thyroid uptake of 11%. Assessment Franchesca??Yessi is a 45??year old female with a medical history significant for??intermittently abnormal TFTs, depression, anxiety, GERD, bipolar disorder, nephrolithiasis,??fibromyalgia,??cholelithiasis status-post cholecystectomy, and ovarian cyst status-post oophorectomy,??was??initially??referred??to endocrine clinic in May, for supppressed??TSH in the setting of thyroid nodule on thyroid US.??Franchesca followed Dr. Lucas until summer. ?? Franchesca had long standing h/o intermittent abnormalities in TFTs for 6 years. She states thyroid hormones are always like a yo-yo.??She??was reportedly diagnosed with hyperthyroidism approximately??6??years ago, but??was not treated with antithyroid medication and the issue reportedly subsided on itsown.??In mar, 2019, she developed a myriad of symptoms (severe diarrhea, worsening of her underlyingdepression and anxiety, with difficultly controlling her anger,??extreme hot flashes and waking up at??night drenched in sweat), work up revealed subclinical hyperthyroidism and 0.8 cm left thyroid nodule, and was referred to endocrine clinic. ?? Work up so far: 06/03/19:??TSH 0.14, FT4 1.26, TT3 127 and TSI <0.10 KRISHNAMURTHY uptake scan (06/25/19):??Normal thyroid morphology and low end of normal thyroid uptake of 11%. 08/05/19:??TSH 0.09, FT4 1.19, TPO <28, TT3 133 08/30/19: Started on Methimazole 5 mg daily due to suppressed TSH and persistent hyperthyroid symptoms 10/24/19: TSH 0.32, FT4 1.03, TT3 152 01/16/20:??TSH 6.82, FT4 0.67, TT3 145; Reduced Methimazole to 2.5 mg daily 04/16/20:??Discontinued Methimazole 05/01/20: TSH 0.35, FT4 1.05 05/05/20:??Restarted Methimazole 2.5 mg daily for symptoms of intermittent palpitations and diarrhea. 06/05/20: TSH 0.76; FT 0.91; TT3 132 06/26/20: TSH 0.65; FT4 1.04; TT3 145; TSI ab<1; TPO ab <28; celiac ab negative 10/30/20: Discontinued methimazole due to lack of symptomatic relief with methimazole and due to thefact that prior work up was negative for graves disease. ?? In summary, previous TFTs consistent with subclinical hyperthyroidism, TPO and TSI ab negative and I-123 scan showed low end of normal thyroid uptake (11%). Franchesca has been on/off low dose methimazole for the past 1.5 year, did not notice any improvement in symptoms with or without antithyroid medication. Given negative work up for graves disease and lack of symptomatic improvement, we discontinued methimazole a month ago and TFTs from today are within normal range. Suspect previously abnormal TFTs from recurrent bouts of thyroiditis. She has a h/o complex sub-centimeter thyroid nodule on previous US. Office based thyroid US today revealed normal thyroid gland with heterogeneous appearance, few tiny cysts bilaterally, and no discrete nodules. As the hormones are in normal range and thyroid US did not reveal any discrete nodule, no further work up or monitoring is required. ?? Above plan discussed with Franchesca and she understands and agrees with the plan. All questions answered. ?? Thank you for allowing us to provide care for your patient. D/W Dr. Grewal ?? Antoni Jones Endocrinology fellow [facility] Maura Grewal MD - 11/26/2020 10:30 AM EST I have seen the patient and reviewed Dr. Jones's above history and I agree with the details as written. The assessment and plan were formulated in discussion with me and I agree with them as documented. Maura Grewal MD, PhD, FACP, FACE documented in this encounter Plan of Treatment Upcoming Encounters Date Type Specialty Care Team Description 11/21/2022 Appointment Radiology Gricel Stoddard APRN [place] [address] (Wo rk) documented as of this encounter Procedures Procedure Name Priority Date/Time Associated Diagnosis Comme nts GOLD TUBE HOLD STAT 11/26/2020 11:52 AM Result s for this EST procedure are i n the results section . documented in this encounter Results Gold Tube HOLD (11/26/2020 11:52 AM EST) P athologist Signature Gold Hold Sample in [facility] Specimen Anatomical Collection Method Collection Time Receive d Time (Source) Location / / Volume Laterality Blood specimen No Charge / 11/26/2020 11:52 (specimen) Unknown AM EST 12:24 PM EST Antoni Jones MD CHEMISTRY ORDERABLES Performing Organization Address City/State/ZIP [place] [address] documented in this encounter Visit Diagnoses Diagnosis Subclinical hyperthyroidism Thyrotoxicosis without mention of goiter or other cause, without mention of thyrotoxic crisis or storm documented in this encounter Care Teams Linux Consultant Relationship Specialty Start Date End Date Odalys Escobar APRN PCP - General Family Medicine 11/26/20 [address] [place] [address] documented as of this encounter
--- OUTSIDE RECORDS SUMMARY | 2022-10-04 12:23 | XMS_ITS | Encounter Summary ---
:1975 Author Organization [facility] [place] [address] Care Team Providers Name Role Phone Malgorzata Orellana APRN Primary Care Provider Encounter Details Date Type Department Care Team Description 06/12/2020 Orders Only Endocrinology at [facility] Antoni Roth, [facility] [place] [address] [address] [phone] [place] [address] Social History Tobacco Use Types Packs/Day Years Used Date Smoking Tobacco: Every Day Cigarettes 1 Smokeless Tobacco: Never Sex Assigned at Date Recorded Female 12/12/2021 11:37 AM EST documented as of this encounter Progress Notes Antoni Jones MD - 06/12/2020 3:47 PM EDT Franchesca Dickson is a 44 year old female with a medical history significant for depression anxiety, GERD, bipolar disorder, nephrolithiasis, cholelithiasis status-post cholecystectomy, ovarian cyst status-post oophorectomy, was initially referred to endocrine clinic in May, for supppressed TSH in the setting of thyroid nodule on thyroid US. ?? In summary, previous TFTs consistent with subclinical hyperthyroidism, TPO and TSI ab negative and I-123 scan last year showed low end of normal thyroid uptake (11%). Franchesca reports myriad of symptoms consistent with hyperthyroidism. 06/05/20: TSH: 0.76 FT4: 0.91 TT3: 132 Recommended to continue Methimazole 2.5 mg daily and recheck TSI, TPO ab and TFT in 1 month. Labs routed to [facility]. documented in this encounter Plan of Treatment Upcoming Encounters Date Type Specialty Care Team Description 11/21/2022 Appointment Radiology Gricel Stoddard APRN [place] [address] (Wo rk) documented as of this encounter Visit Diagnoses Diagnosis Subclinical hyperthyroidism Thyrotoxicosis without mention of goiter or other cause, without mention of thyrotoxic crisis or storm documented in this encounter Care Teams Learning And Development Assistant Relationship Specialty Start Date End Date Malgorzata Orellana APRN PCP - General Internal Medicine 03/22/19 10/13/[address] [place] [address] documented as of this encounter
--- OUTSIDE RECORDS SUMMARY | 2022-10-04 12:23 | XMS_ITS | Encounter Summary ---
:1975 Author Organization [facility] [place] [address] Care Team Providers Name Role Phone Luz Odalys TOSHIA Primary Care Provider Encounter Details Date Type Department Care Team Description 02/18/2022 Telephone Neurosurgery at [facility] Sary Bloom [place] [facility] [place] [address] NEUROSURGERY [phone] [place], [place] [address] (Wo rk) Social History Tobacco [...] Notes Telephone Encounter - Monica Butcher - 03/10/2022 5:26 PM EDT Per [place] text reschedule 03/14 angio, called pt to let her know Fozia would call with an new date needto cancel 2 angio. Telephone Encounter - Monica Butcher - 02/18/2022 7:53 AM EDT Pt already scheduled for 03/14 by Gricel and letter sent to patient ----- Message from Sary Bloom MD sent at 02/18/2022 7:29 AM EDT ----- Plz schedule for aneurysm embolization documented in this encounter Plan of Treatment Upcoming Encounters Date Type Specialty Care Team Description 11/21/2022 Appointment Radiology Gricel Stoddard APRN [place], [place] [address] (Wo rk) documented as of this encounter Visit Diagnoses Not on filedocumented in this encounter Care Teams Field Professional Relationship Specialty Start Date End Date Odalys Escobar APRN PCP - General Family Medicine 11/26/20 [address] [place] [address] documented as of this encounter
--- OUTSIDE RECORDS SUMMARY | 2022-10-04 12:23 | XMS_ITS | Encounter Summary ---
:1975 Author Organization [facility] [place] [address] Care Team Providers Name Role Phone Odalys Escobra APRN Primary Care Provider Encounter Details Date Type Department Care Team Description 03/17/2022 Orders Only Neurosurgery [place] [facility] Gricel [place]oddard, Right internal [facility] BODY COVERER carotid artery Drive [facility] [place] [address] [address] [phone] NEUROSURGERY [place], [place] [address] Social History Tobacco Use Types [...] Team Description 11/21/2022 Appointment Radiology Gricel Stoddard, BODY COVERER [facility] ER [facility] NEUROSURGERY [place], [place] [address] (Wo rk) documented as of this encounter Results P2Y12 Antiplatelet ([facility]) (04/04/2022 10:43 AM EDT) P athologist Signature P2Y12 [address] [facility] [facility] Comment: Test results are reported [...] Organization Address City/State/ZIP Code Phon e Number [place] [phone] documented in this encounter Visit Diagnoses Diagnosis Right internal carotid artery aneurysm Cerebral aneurysm, nonruptured documented in this encounter Care Teams Bank Analyst Relationship Specialty Start Date End Date Odalys Escobar APRN PCP - General Family Medicine 11/26/20 [place] [address] documented as of this encounter
--- OUTSIDE RECORDS SUMMARY | 2022-10-04 12:23 | XMS_ITS | Encounter Summary ---
:1975 Author Organization [facility] [place] [address] Care Team Providers Name Role Phone Odalys Escobar APRN Primary Care Provider Reason for Visit Diagnostic Test (Routine) - Closed Specialty Diagnoses / Procedures Referred By Contact Refer red To Contact Radiology Diagnoses Right internal carotid artery aneurysm Gricel Stoddard, [place] [facility] Interventionl Rad Procedures [place] [address] [place] [address] Referral ID Status Reason Start Date Expiration Date Visits V isits Requested Authorized [id number] Closed Specialty 03/14/2022 11/12/2022 1 1 Service Requested Encounter Details Date Type Department Care Team Description 03/21/2022 Hospital Encounter Radiology at [facility] Gricel Stoddard, Canceled [facility] TOSHIA (D-CANCELLED BY Drive [facility] MEDICAL DEPARTMENT) [facility] [address] [address] NEUROSURGERY [phone] [place] [address] Social History Tobacco Use Types Packs/Day Years [...] Description 11/21/2022 Appointment Radiology Gricel Stoddard APRN [place] [address] (Wo rk) documented as of this encounter Visit Diagnoses Not on filedocumented in this encounter Care Teams Accounting Specialist Relationship Specialty Start Date End Date Odalys Escobar APRN PCP - General Family Medicine 11/26/20 [address] [place] [address] documented as of this encounter
--- OUTSIDE RECORDS SUMMARY | 2022-10-04 12:23 | XMS_ITS | Encounter Summary ---
:1975 Author Organization [facility] [place] [address] Care Team Providers Name Role Phone Malgorzata Orellana APRN Primary Care Provider Encounter Details Date Type Department Care Team Description 05/08/2020 Orders Only Endocrinology at [facility] Antoni Roth [place] [address] [phone] ENDOCRINOLOGY [place], [place] [address] (Wo rk) Social History Tobacco Use Types Packs/Day Years Used Date Smoking Tobacco: Every Day Cigarettes 1 Smokeless Tobacco: Never Sex Assigned at Date Recorded Female 12/12/2021 11:37 AM EST documented as of this encounter Plan of Treatment Upcoming Encounters Date Type Specialty Care Team Description 11/21/2022 Appointment Radiology Gricel Stoddard APRN [place], [place] [address] (Wo rk) documented as of this encounter Visit Diagnoses Diagnosis Hyperthyroidism Thyrotoxicosis without mention of goiter or other cause, without mention of thyrotoxic crisis or storm documented in this encounter Care Teams Transmission Engineer Relationship Specialty Start Date End Date Malgorzata Orellana APRN PCP - General Internal Medicine 03/22/19 10/13/[address] [place] [place] [address] documented as of this encounter
--- OUTSIDE RECORDS SUMMARY | 2022-10-04 12:23 | XMS_ITS | Encounter Summary ---
:1975 Author Organization [facility] [place] [address] Care Team Providers Name Role Phone Malgorzata Orellana APRN Primary Care Provider Reason for Referral Diagnostic Test (Routine) - Closed Specialty Diagnoses / Procedures Referred By Contact Refer red To Contact Radiology Diagnoses Hyperthyroidism Ashly Lucas, DO [facility] Rad Nuclear Med Procedures NM I-123 Thyroid Imaging w Uptake Radiopharm Admin [facility] [place] [address] [place] [address] Referral ID Status Reason Start Date Expiration Date Visits V isits Requested Authorized [id number] Closed Specialty 06/14/2019 06/13/2020 1 1 Service Requested Reason for Visit Diagnostic Test (Routine) - Closed Specialty Diagnoses / Procedures Referred By Contact Refer red To Contact Radiology Diagnoses Hyperthyroidism Ashly Lucas, DO [facility] Rad Nuclear Med Procedures NM I-123 Thyroid Imaging w Uptake Radiopharm Admin [facility] [place] [address] [place] [address] Referral ID Status Reason Start Date Expiration Date Visits V isits Requested Authorized [id number] Closed Specialty 06/14/2019 06/13/2020 1 1 Service Requested Encounter Details Date Type Department Care Team Description 06/24/2019 Hospital Encounter Nuclear Medicine at [facility], [place] MD [facility] [address] [place] ENDOCRINOLOGY [address] DEPT. [phone] [place], [place] [address] Social History Tobacco Use Types [...] Description 11/21/2022 Appointment Radiology Gricel Stoddard APRN [facility] NEUROSURGERY [place], [place] [address] (Wo rk) documented as of this encounter Procedures Procedure Name Priority Date/Time Associated Diagnosis Comme nts NM I-123 THYROID Routine 06/24/2019 1:00 PM Hyperthyroidism Re sults for this IMAGING W UPTAKE - EDT procedure are in RADIOPHARM ADMIN the results section. documented in this encounter Results NM I-123 Thyroid Imaging w Uptake Radiopharm Admin (06/24/2019 1:00 PM EDT) Specimen (Source) Anatomical Location Collection Method / Collectio n Time Received Time / Laterality Volume Narrative ROSENDA - 06/24/2019 1:01 PM EDT This exam is auto-finalizing. It is for billing only. See paired order for result. Mo Salinas MD IMG NM ORDERABLES Performing Organization Address City/State/ZIP Code Phon e Number [place], [place] documented in this encounter Visit Diagnoses Diagnosis Hyperthyroidism Thyrotoxicosis without mention of goiter or other cause, without mention of thyrotoxic crisis or storm documented in this encounter Administered Medications Inactive Administered Medications - up to 3 most recent administrations Medication Order MAR Action Action Date Dose Rate Site iodine I-123 diagnostic Given 06/24/2019 12:55 PM EDT 0.304 mCi capsule 0.304 mCi 0.304 mCi, Oral, ONCE PRN, 1 dose, Starting on Mon06/24/19 at 1255, Until Mon06/24/19 at 1255, Per Protocol, Routine documented in this encounter Care Teams Welding Equipment Repairer Relationship Specialty Start Date End Date Malgorzata Orellana APRN PCP - General Internal Medicine 03/22/19 10/13/[address] [place] [address] documented as of this encounter
[2022-10-04 12:27] LABS: Abs Immature Grans 0.02 10^3/uL (0.0-0.06); Absolute Eosinophil Count 0.17 10^3/uL (0.0-0.7); Absolute Lymphocyte Count 3.73 10^3/uL (1.2-3.4); Absolute Monocyte Count 0.86 10^3/uL (0.1-0.8); Basophils % 0.3; Eosinophils % 1.5; HCT 44.1 % (36.0-46.0); HGB 14.7 g/dL (11.2-15.7); Immature Grans % 0.2; Lymphocytes % 32.5; MCHC 33.3 % (32.0-36.0); MCV 96 fL (80-95); MPV 9.4 fL (8.0-11.0); Monocytes % 7.5; Platelet Count 358 10^3/uL (130-400); RDW 15.6 % (11.7-14.6); RDW-SD 55.1 fL; WBC 11.49 10^3/uL (4.4-10.8)
--- OUTSIDE RECORDS SUMMARY | 2022-10-04 12:27 | XMS_ITS | Encounter Summary ---
:1975 Author Organization [facility] Address [address] [place] [address] Care Team Providers Name Role Phone Odalys Escobar MOISES Primary Care Provider Reason for Visit Reason Onset Date Comments Abnormal Lab 07/08/2022 Results 07/08/2022 Encounter Details Date Type Department Care Team Description 07/08/2022 Telephone [facility] Ros Cornelius Abno rmal Lab; Results Endocrinology - Tushar chappell MD PhD [address] [employer] [address] [place] [address] Social History Tobacco Use Types Packs/Day Years Used Date Smoking Tobacco: Every Day Smokeless Tobacco: Current Sex Assigned at Date Recorded Female 03/07/2022 10:17 EDT documented as of this encounter Functional Status Functional Status Response Date of Assessment Because of a physical, mental, or emotional condition, Yes 07/07/2022 does this person have difficulty doing errands alone such as visiting a doctor's office or shopping? Cognitive Status Response Date of Assessment Because of a physical, mental, or emotional condition, Yes 07/07/2022 does this person have serious difficulty concentrating, remembering, or making decisions? documented as of this encounter Miscellaneous Notes Telephone Encounter - Aubree Finch - 07/21/2022 1343 EDT Pt calling to follow-up on Dr Cornelius's note below from My Chart message. Please call to discuss. Telephone Encounter - Ros Cornelius MD PhD - 07/08/2022 0854 EDT Pt called that TSH is sl low at 0.1 with normal FT4 and TT3, neg Toby's AB, TSH rec AB pending. Await that to discuss therapy. DR. Cornelius documented in this encounter Plan of Treatment Not on filedocumented as of this encounter Visit Diagnoses Not on filedocumented in this encounter Care Teams Box Machine Operator Relationship Specialty Start Date End Date Odalys Escobar FNP PCP - General 07/07/[address] [place] [address] documented as of this encounter
--- OUTSIDE RECORDS SUMMARY | 2022-10-04 12:27 | XMS_ITS | Encounter Summary ---
:1975 Author Organization [facility] Address [address] [place] [address] Care Team Providers Name Role Phone Tania Lee INSET CUTTER Primary Care Provider Malgorzata Orellana INSET CUTTER Primary Care Provider Odalys EscobarP Primary Care Provider Encounter Details Date Type Department Care Team Description 06/05/2020 Lab Requisition [facility] Outr Resulting Lab, Pathology & Laboratory Provider [facility] [address] [place] [address] Social History Tobacco Use Types Packs/Day Years Used Date Smoking Tobacco: Never Assessed Sex Assigned at Date Recorded Female 03/07/2022 10:17 EDT documented as of this encounter Plan of Treatment Not on filedocumented as of this encounter Procedures Procedure Name Priority Date/Time Associated Diagnosis Comme nts T3, TOTAL Routine 06/05/2020 13:18 EDT Results for this procedure are i n the results section . documented in this encounter Results T3, TOTAL (06/05/2020 13:18 EDT) P athologist Signature T3, Total 132 97 - 169 06/05/2020 [facility] ng/dL 21:30 EDT CENTER LABORATORY SERVICES Specimen Anatomical Collection Method Collection Time Receive d Time (Source) Location / / Volume Laterality Blood VENOUS BLOOD / 06/05/2020 13:18 0 Unknown EDT 20:26 EDT Provider Outr Resulting Lab CHEMISTRY & BLOOD GAS MURPHY PARRA Performing Organization Address City/State/ZIP Code Phon e Number [facility] [address] [place] [address] SERVICES documented in this encounter Visit Diagnoses Not on filedocumented in this encounter Care Teams Security Risk Analyst Relationship Specialty Start Date End Date Tania Lee, INSET CUTTER PCP - General 02/17/15 08/23/[address] [place] [address] [facility] [place] [phone] Malgorzata Orellana NP PCP - General 08/24/20 07/06/22 [address] [place], [place] [phone] Odalys Escobar FNP PCP - General 07/07/22 [address] [place], [place] [phone] documented as of this encounter
--- OUTSIDE RECORDS SUMMARY | 2022-10-04 12:27 | XMS_ITS | Encounter Summary ---
:1975 Author Organization [facility] Address [address] [place] [address] Care Team Providers Name Role Phone Malgorzata Orellana CLIENT PROFESSIONAL Primary Care Provider Odalys Escobar STAFF EDUCATOR Primary Care Provider Encounter Details Date Type Department Care Team Description 02/08/2021 Lab Requisition [facility] Winsome Bynum E ncounter for other Pathology & STAFF EDUCATOR general examination Laboratory Medicine [address] [place], [place] [address] [facility] [id number] [place] [address] Social History Tobacco Use Types Packs/Day Years Used Date Smoking Tobacco: Never Assessed Sex Assigned at Date Recorded Female 03/07/2022 10:17 EDT documented as of this encounter Plan of Treatment Not on filedocumented as of this encounter Procedures Procedure Name Priority Date/Time Associated Comments Diagnosis PAP TEST Today 02/04/2021 14:00 Encounter for other Resu lts for this EDT general examination procedur e are in the results section. HUMAN PAPILLOMAVIRUS Today 02/04/2021 14:00 Encounter for ot her Results for this (HPV) DETECTION-HIGH EDT general examination procedure are in RISK TYPES the results section. documented in this encounter Results HUMAN PAPILLOMAVIRUS (HPV) DETECTION-HIGH RISK TYPES (02/04/2021 14:00 EDT) [facility] Method Time Signature Human Negative Negative 02/17/2021 [facility] Papillomavirus 9:58 EDT CENTER (HPV) LABORATORY Detection-High SERVICES Types Comment: No E6 or E7 mRNA is detected fr om HPV types 16,18,31,33,35,39,45,51,52,56,58,59,66, and 68 by bevel mill operator mediated amplification. Specimen Anatomical Collection Method Collection Time Receive d Time (Source) Location / / Volume Laterality Pap Test (Cervix 02/04/2021 14:00 04/05/ 021 and/or EDT 13:28 EDT Endocervix) [facility] MICROBIOLOGY - GENERAL ORDER VINEET Performing Organization Address City/State/ZIP Code Phon e Number [facility] [address] [place] [address] SERVICES PAP TEST (02/04/2021 14:00 EDT) Component Value Ref Test Analysis Performed At [facility] Range Method Time Signature Specimens A. Cervix and/or 02/17/2021 [facility] Endocervix , 9:58 [facility] ThinPrep Imaging LABORATORY System with SERVICES Manual Evaluation Specimen Satisfactory for 02/17/2021 [facility] MEDICAL Adequacy Evaluation - 9:58 [facility] [place] transformation LABORATORY zone component SERVICES present General Negative for 02/17/2021 [facility] Categorization intraepithelial 9:58 T CENTER lesion or LABORATORY malignancy SERVICES Attestation . 02/17/2021 [facility] Elect ronically 9:58 T CENTER signed by CHARLI Parker CT (ASCP) SERVICES on 1 at 0958 Clinical History See below 02/17/2021 [facility] 9:58 T CENTER LABORATORY SERVICES HPV The result for the Human Pap illomavirus (HPV) Detection-High Risk Types is Negative. No E6 or E7 mRNA is detected from HPV types 16,18,31,33,35,39,45,51,52,56,58,59,66, and 68 by bevel mill operator mediated 02/17/2021 [facility] MED[facility] amplification.Testing was pe rformed on specimen [id number] and was resulted on 02/16/2021 1536 EDT by CRUZITO, LAB INSTRUMENT RESULTS IN 9:58 T CENTER LABORATORY SERVICES Performing Lab [facility] 02/17/2021 [facility] MEDIC AL LAB 9:58 T CENTER LABORATORY SERVICES Scanned Images 02/17/2021 [facility] 9:58 EDT CENTER LABORATORY SERVICES Specimen Anatomical Collection Method Collection Time Receive d Time (Source) Location / / Volume Laterality Pap Test (Cervix 02/04/2021 14:00 021 and/or EDT 12:18 EDT Endocervix) Winsome DE LEON PATHOLOGY ORDERABLES Performing Organization Address City/State/ZIP Code Phon e Number [facility] [address] [place] [address] SERVICES documented in this encounter Visit Diagnoses Diagnosis Encounter for other general examination documented in this encounter Care Teams Auditor Tax Relationship Specialty Start Date End Date Malgorzata Orellana NP PCP - General 08/24/20 07/06/22 [address] [place], [place] [phone] Odalys Escobar FNP PCP - General 07/07/22 [address] [place], [place] [phone] documented as of this encounter
--- OUTSIDE RECORDS SUMMARY | 2022-10-04 12:27 | XMS_ITS | Encounter Summary ---
:1975 Author Organization [facility] Address [address] [place] [address] Care Team Providers Name Role Phone Rosa Tania Vallecillo BORDER GUARD Primary Care Provider Encounter Details Date Type Department Care Team Description 02/16/2015 Results Only [facility]- Carla Tafoya, [address] [place] [address] (Wo rk) Social History Tobacco Use Types Packs/Day Years Used Date Smoking Tobacco: Never Assessed Sex Assigned at Date Recorded Female 03/07/2022 10:17 EDT documented as of this encounter Plan of Treatment Not on filedocumented as of this encounter Procedures Procedure Name Priority Date/Time Associated Diagnosis Comme [facility] SURGICAL PATHOLOGY Routine 02/16/2015 9:09 EDT Re sults for this procedure are i n the results section. documented in this encounter Results SURGICAL PATHOLOGY (02/16/2015 9:09 EDT) Component Value Ref Test Analysis Performed At [facility] Method Time Signature Pathology SURGICAL PATHOLOGY REPORT [facility] MEDICAL Report: Reports generated via electronic interface contain origina l data; CENTER however they are lacking the format of the original report. LABORATORY Caution should be taken when reading/interpreting unformat nena reports. SERVICES Name: ? ROBERT BACH ? Accession #: ? [id number] ? : ? 1975 (Age: 39) ??F ? Collect Date: ? 02/16/2015 ? Location: ? [facility] ? Receive Date: ? 02/16/2015 ? Provider: CARLA MERRILL MD Copy to: TANIA COLLADO BORDER GUARD ? Final Pathologic Diagnosis: GALLBLADDER, CHOLECYSTECTOMY: - ??Chronic cholecystitis with cholelithiasis. Document reviewed and electronically signed by: DARIAN MARSH MD Report ??Date: 02/18/2015 17:55 By the signature above, the attending physician certifies th at he/she has personally conducted a gross and/or microscopic examin ation of the described specimens and rendered or confirmed the above diagnosis. Specimen(s) Received: Gallbladder Clinical History: Biliary colic Gross Description: ? Received in formalin labelled with proper patient identification (initials A, N) and gallbladder is a focally disrupted gallbladder (7.0 x 2.0 x 1.5 cm) with an attached segment of cystic duct (0.3 cm in length x 0.4 cm in diameter). ? The serosa is pink-lester and richard h. The mucosa is prieto-brown and velvety with focal yellow stippling and the wall is 0.2 cm in thickness. The cystic duct lumen is patent. The cystic duct margin is inked blue. Multi ple fragmented yellow-brown choleliths are present, ranging from less than 0.1 cm to 0.8 cm in greatest dimension. ? Two printing supplies sales representative se ctions and the inked en face cystic duct margin are submitted in 1. Mo Toney 02/17/2015 01:46 PM End of Report Specimen Anatomical Collection Method Collection Time Receive d Time (Source) Location / / Volume Laterality 02/16/2015 9:09 02/16/2015 9 :09 EDT EDT Carla Merrill MD PATHOLOGY ORDERABLES Performing Organization Address City/State/ZIP Code Phon e Number [facility] [address] [place] [address] SERVICES documented in this encounter Visit Diagnoses Not on filedocumented in this encounter Care Teams Pnp Relationship Specialty Start Date End Date Tania Collado, BORDER GUARD PCP - General 02/17/15 08/23/[address] [place] [address] [place] [phone] documented as of this encounter
--- OUTSIDE RECORDS SUMMARY | 2022-10-04 12:27 | XMS_ITS | Encounter Summary ---
:1975 Author Organization [facility] Address [address] [place] [address] Care Team Providers Name Role Phone Odalys Escobar INSTRUCTIONAL SUPPORT SERVICES DIRECTOR Primary Care Provider Encounter Details Date Type Department Care Team Description 07/07/2022 Ancillary [facility] al Procedure Endocrinology - Till ey hyperthyroidism [address] [place] [address] Social History Tobacco Use Types Packs/Day Years [...] making decisions? documented as of this encounter Plan of Treatment Not on filedocumented as of this encounter Procedures Procedure Name Priority Date/Time Associated Diagnosis Comme nts POC ENDOCRINE US Routine 09/01/2022 9:26 Subclinical Results for this THYROID EDT hyperthyroidism procedure ar e in the results section. documented in this encounter Results POC ENDOCRINE US THYROID (09/01/2022 9:26 EDT) Specimen (Source) Anatomical Location Collection Method / Collectio n Time Received Time / Laterality Volume Narrative 09/01/2022 9:26 EDT This is a non-reportable exam. Ros Cornelius MD PhD IMG US POC ORDERABLES documented in this encounter Visit Diagnoses Diagnosis Subclinical hyperthyroidism Thyrotoxicosis without mention of goiter or other cause, without mention of thyrotoxic crisis or storm documented in this encounter Care Teams Branch Manager Relationship Specialty Start Date End Date Odalys Escobar FNP PCP - General 07/07/22 [place] [address] documented as of this encounter
--- OUTSIDE RECORDS SUMMARY | 2022-10-04 12:27 | XMS_ITS | Encounter Summary ---
:1975 Author Organization [facility] Address [address] [place] [address] Care Team Providers Name Role Phone Malgorzata Orellana ACCOUNTS EXECUTIVE Primary Care Provider Odalys EscobarP Primary Care Provider Encounter Details Date Type Department Care Team Description 02/26/2021 Lab Requisition [facility] Katie Hubbard, En counter for other Pathology & MD general examination Laboratory Medicine [address] [facility] [address] [place] [address] Social History Tobacco Use Types Packs/Day Years Used Date Smoking Tobacco: Never Assessed Sex Assigned at Date Recorded Female 03/07/2022 10:17 EDT documented as of this encounter Plan of Treatment Not on filedocumented as of this encounter Procedures Procedure Name Priority Date/Time Associated Diagnosis Comme nts SURGICAL PATHOLOGY Today 02/26/2021 9:40 EDT Encounter for o ther Results for this general examination procedur e are in the results section. documented in this encounter Results SURGICAL PATHOLOGY (02/26/2021 9:40 EDT) Component Value Ref Test Analysis Performed At [facility] Range Method Time Signature Final A. ENDOMETRIUM, BIOPSY: 03/02/2021 [facility] Diagnosis - Disordered proliferative e ndometrium with early secretory change. See Comment. 10:26 EDT CENTER LABORATORY SERVICES Diagnosis The differential 03/02/2021 [facility] Comment diagnosis 10:26 EDT CENTER includes LABORATORY anovulatory SERVICES cycles in the perimenopausal setting, and sporadic ovulation on a background of disordered proliferative endometrium. Attestation There was 03/02/2021 [facility] Elect ronically significant 10:26 EDT CENTER signed carolynn Lund resident/fellow LABORATORY Narcisa May MD on involvement in SERVICES 2020 at the diagnostic 1026 evaluation of this case. By the signature below, the attending physician certifies that they have personally conducted a gross and/or microscopic examination of the described specimens and rendered or confirmed the above diagnosis. Clinical Abnormal uterine 03/02/2021 [facility] History bleeding; pelvic 10:26 T CENTER pain LABORATORY SERVICES Gross A. 03/02/2021 [facility] Description Received in formalin maria fernanda d with proper patient identification (initials A, N) and endometrium is an aggregate of prieto-brown soft tissue admixed with prieto clear mucus and a scant amount of dark brown 10:26 EDT CENTER blood clot (1.8 x 1.6 x 0.8 cm). Entirely submitted in A1-A3 . LABORATORY SERVICES Vijay Mehta 02/27/2021 10:50 Resident/Jess Velez 03/02/2021 [facility] RAJESH KEVIN w: MD Itzel 10:26 [facility] LABORATORY SERVICES Performing Lab [facility] 03/02/2021 [facility] AL LAB 10:26 [facility] LABORATORY SERVICES Scanned Images 03/02/2021 [facility] 10:26 [facility] LABORATORY SERVICES Specimen Anatomical Location Collection Method Collection Time Received Time (Source) / Laterality / Volume Tissue ENTIRE ENDOMETRIUM 02/26/2021 9:40 2020 / Unknown EDT 16:19 EDT Katie Hubbard MD PATHOLOGY ORDERABLES Performing Organization Address City/State/ZIP Code Phon e Number [facility] [address] [place] [address] SERVICES documented in this encounter Visit Diagnoses Diagnosis Encounter for other general examination documented in this encounter Care Teams Cnc Laser Operator Relationship Specialty Start Date End Date Malgorzata Orellana NP PCP - General 08/24/20 07/06/22 [address] [place], [place] [address] Odalys Escobar FNP PCP - General 07/07/22 [address] [place] [address] documented as of this encounter
--- OUTSIDE RECORDS SUMMARY | 2022-10-04 12:27 | XMS_ITS | Encounter Summary ---
:[address] [facility] Address [address] [place] [address] Care Team Providers Name Role Phone Malgorzata Orellana CLEANER WINDOW Primary Care Provider Odalys Escobar Primary Care Provider Encounter Details Date Type Department Care Team Description 03/11/2022 Lab Requisition [facility] Outr Resulting Lab, Pathology & Laboratory Provider [facility] [address] [place], [place] [address] Social History Tobacco Use Types Packs/Day Years Used Date Smoking Tobacco: Never Assessed Sex Assigned at Date Recorded Female 03/07/2022 10:17 EDT documented as of this encounter Plan of Treatment Not on filedocumented as of this encounter Procedures Procedure Name Priority Date/Time Associated Diagnosis Comme nts COVID-19 TEST [facility] Today 03/11/2022 11:15 LAB PCR EDT COVID-19 TESTING Routine 03/11/2022 11:15 Results for this EDT procedure are i n the results section. documented in this encounter Results COVID-19 TEST [facility] LAB PCR (03/11/2022 11:15 EDT) Specimen Anatomical Collection Method Collection Time Receive d Time (Source) Location / / Volume Laterality Swab 03/11/2022 11:15 03/11/2022 EDT 21:36 EDT Provider Outr Resulting Lab MICROBIOLOGY - GENERAL ORD ERABLES Performing Organization Address City/State/ZIP Code Phon e Number [facility] [address] [place] [address] SERVICES COVID-19 TESTING (03/11/2022 11:15 EDT) Analysis Performed At Patho logist Time Signature COVID-19 Negative Negative 03/12/2022 [facility] rt-PCR Result 13:44 EDT CENTER LABORATORY SERVICES Comment: This test has not been FDA cleared or ap proved. This test has been authorized by FDA under an EUA for use by authorized laboratories. This test has been authorized only for detection of nucleic acid fro m 2019-nCoV, not for any other viruses o r pathogens. This test is only authorized for the duration of the declaration that circumstances exist justifying the authorization of emergency use of in vitro d iagnostic tests for detection and/or maximino gnosis of 2019-nCoV under section 564(b)(1) of Act, 21 U.S.C ?? 360bbb-3(b) (1), unless the authorization is terminated or revoked sooner. Negative results do not preclude 2019-nC oV infection and should not be used as the sole basis for treatment or other patient management decisions. Negative results must be combined with clinical observa tions, patient history, and epidemiologi joyce information. Testing was performed using the lew SA RS-CoV-2 assay ([employer] on the Lew 6800 System Performing Lab Lew [address] [facility] 03/12/2022 13:44 E DT [facility] Lab LABORATORY SERVICES Specimen Anatomical Collection Method Collection Time Receive d Time (Source) Location / / Volume Laterality Swab 03/11/2022 11:15 03/11/2022 EDT 21:36 EDT Provider Outr Resulting Lab MICROBIOLOGY - GENERAL ORD ERABLES Performing Organization Address City/State/ZIP Code Phon e Number [facility] [address] [place] [address] SERVICES documented in this encounter Visit Diagnoses Not on filedocumented in this encounter Care Teams Oil Refiner Relationship Specialty Start Date End Date Malgorzata Orellana NP PCP - General 08/24/20 07/06/22 [address] [place] [address] Odalys Escobar FNP PCP - General 07/07/[address] [place] [address] documented as of this encounter
--- OUTSIDE RECORDS SUMMARY | 2022-10-04 12:27 | XMS_ITS | Encounter Summary ---
:1975 Author Organization [facility] Address [address] [place] [address] Care Team Providers Name Role Phone Malgorzata Orellana STATISTICIAN APPLIED Primary Care Provider Odalys Escobar Primary Care Provider Reason for Visit Reason Onset Date Comments Appointment Related 03/07/2022 Encounter Details Date Type Department Care Team Description 03/07/2022 Telephone [facility] Ros Cornelius, Appo intment Related Endocrinology - Tushar chappell MD PhD [address] [place], [place] [address] [place] [address] [address] [place] [address] Social History Tobacco Use Types Packs/Day Years Used Date Smoking Tobacco: Never Assessed Sex Assigned at Date Recorded Female 03/07/2022 10:17 EDT documented as of this encounter Miscellaneous Notes Telephone Encounter - Thierno Rodriguez - 03/07/2022 0807 EDT Patient called asking if she had an appt today with Dr Cornelius. Secondary School Teacher Librarian looked and advised that she does not and that it is 07/07. She said that someone had celled her about a cancellation and she thoughtthat they switched her appt to today. Secondary School Teacher Librarian sees nothing about that and checked the schedule but there are no openings for today unless something is being held by scheduling. Please check and call patient to advise if appropriate. documented in this encounter Plan of Treatment Not on filedocumented as of this encounter Visit Diagnoses Not on filedocumented in this encounter Care Teams Project Geophysicist Relationship Specialty Start Date End Date Malgorzata Orellana, STATISTICIAN APPLIED PCP - General 08/24/20 07/06/22 [address] [place], [place] [address] Odalys Escobar FNP PCP - General 07/07/22 [address] [place], [place] [address] documented as of this encounter
--- OUTSIDE RECORDS SUMMARY | 2022-10-04 12:27 | XMS_ITS | Encounter Summary ---
:1975 Author Organization [facility] Address [address] [place] [address] Care Team Providers Name Role Phone Arnaud Collado AUTO DEALERSHIP PORTER Primary Care Provider Encounter Details Date Type Department Care Team Description 06/28/2017 Results Only [facility] Arnaud Collado, LLOYD [phone] [facility] [facility] [facility] [place] [address] (Wo rk) Social History Tobacco Use Types Packs/Day Years Used Date Smoking Tobacco: Never Assessed Sex Assigned at Date Recorded Female 03/07/2022 10:17 EDT documented as of this encounter Plan of Treatment Not on filedocumented as of this encounter Procedures Procedure Name Priority Date/Time Associated Diagnosis Comme nts PAP TEST- RESULT Routine 06/28/2017 0:00 EDT Resu lts for this ONLY procedure are i n the results section. documented in this encounter Results PAP TEST- RESULT ONLY (06/28/2017 0:00 EDT) Component Value Ref Test Analysis Performed At [facility] Method Time Signature Pathology CYTOPATHOLOGY REPORT [facility] Report: CENTER Reports generated via electronic interface contain origina l data; LABORATORY however they are lacking the format of the original report. SERVICES Caution should be taken when reading/interpreting unformatte d reports. Name: ? ROBERT BACH ? Accession #: ? [id number] ? : ? 1975 (Age: 41 ) ??F ?Collect Date: ? 06/28/2017 ? Location: ? [facility] ? Receive Date: ? 06/30/2017 ? Provider: ARNAUD COLLADO AUTO DEALERSHIP PORTER Copy to: ? Final Report SPECIMEN ADEQUACY ? Satisfactory for Evaluation - transformation zone component absent GENERAL CATEGORIZATION ? Negative for Intraepithelial Lesion or Malignancy ?? Last Menstrual Period: 05/22/2017 Hormonal/Contraceptive status: None Other: Rawhide Trimmer Clinical/Treatment Hx - None Specimen/Source: ??Pap Test, Cervix, ThinPrep Imaging System with manual evaluation Document reviewed and electronically signed by: ? DAVID Lyons(ASCP) ? Report ??Date: 07/07/2017 15:37 HPV with Pap Test ? Date Ordered: ? 07/07/2017 ? Status: ?? Signed Out ?Date Complete: ? 07/10/2017 ? By: ??System I nterface ? Date Reported: ? 07/10/2017 ? Interpretation RESULT: Negative for HPV. No E6 or E7 mRNA is detected from HPV types 16,18,31,33,35, 39,45,51,52,56,58,59,66, and 68 by it program auditor mediated amplification. Comments Document reviewed and electronically signed by: ? System Interface ? Report date: 07/10/2017 By the signature above, the attending physician certifies th at he/she has personally conducted a gross and/or microscopic examin ation of the described specimens and rendered or confirmed the above diagnosis. End of Report Specimen (Source) Anatomical Location Collection Method / Collectio n Time Received Time / Laterality Volume 06/28/2017 06/30/2017 Arnaud Collado NP PATHOLOGY ORDERABLES Performing Organization Address City/State/ZIP Code Phon e Number [facility] [address] [place] [address] SERVICES documented in this encounter Visit Diagnoses Not on filedocumented in this encounter Care Teams Duck Farmer Relationship Specialty Start Date End Date Arnaud Collado NP PCP - General 02/17/15 08/23/[address] [place] [address] [place] [address] documented as of this encounter
--- OUTSIDE RECORDS SUMMARY | 2022-10-04 12:27 | XMS_ITS | Encounter Summary ---
:1975 Author Organization [facility] Address [address] [place] [address] Care Team Providers Name Role Phone Tania Lee SOFTWARE TEST ANALYST Primary Care Provider Malgorzata Orellana SOFTWARE TEST ANALYST Primary Care Provider Odalys EscobarP Primary Care Provider Encounter Details Date Type Department Care Team Description 05/01/2020 Lab Requisition [facility] Outr Resulting Lab, Pathology & Laboratory Provider [facility] [address] [place] [address] Social History Tobacco Use Types Packs/Day Years Used Date Smoking Tobacco: Never Assessed Sex Assigned at Date Recorded Female 03/07/2022 10:17 EDT documented as of this encounter Plan of Treatment Not on filedocumented as of this encounter Procedures Procedure Name Priority Date/Time Associated Diagnosis Comme nts T3, TOTAL Routine 05/01/2020 10:00 EDT Results for this procedure are i n the results section . documented in this encounter Results T3, TOTAL (05/01/2020 10:00 EDT) P athologist Signature T3, Total 165 97 - 169 05/01/2020 [facility] ng/dL 17:08 EDT [facility] Specimen Anatomical Collection Method Collection Time Receive d Time (Source) Location / / Volume Laterality Blood VENOUS BLOOD / 05/01/2020 10:00 0 Unknown EDT 16:22 EDT Provider Outr Resulting Lab CHEMISTRY & BLOOD GAS MURPHY PARRA Performing Organization Address City/State/ZIP Code Phon e Number [facility] [address] [place] [address] SERVICES documented in this encounter Visit Diagnoses Not on filedocumented in this encounter Care Teams Pump Operator [employer] Relationship Specialty Start Date End Date Tania Lee, SOFTWARE TEST ANALYST PCP - General 02/17/15 08/23/[address] [place] [address] [facility] [place] [phone] Malgorzata Orellana NP PCP - General 08/24/20 07/06/22 [address] [place], [place] [phone] Odalys Escobar FNP PCP - General 07/07/22 [address] [place], [place] [id number] documented as of this encounter
--- OUTSIDE RECORDS SUMMARY | 2022-10-04 12:27 | XMS_ITS | Encounter Summary ---
:1975 Author Organization [facility] Address [address] [place] [address] Care Team Providers Name Role Phone Malgorzata Orellana MANAGER HRIS Primary Care Provider Odalys Escobar Primary Care Provider Encounter Details Date Type Department Care Team Description 04/02/2022 Lab Requisition [facility] Outr Resulting Lab, Pathology & Laboratory Provider [facility] [address] [place], [place] [address] Social History Tobacco Use Types Packs/Day Years Used Date Smoking Tobacco: Never Assessed Sex Assigned at Date Recorded Female 03/07/2022 10:17 EDT documented as of this encounter Plan of Treatment Not on filedocumented as of this encounter Procedures Procedure Name Priority Date/Time Associated Diagnosis Comme nts COVID-19 TEST [facility] Today 04/01/2022 9:24 EDT LAB PCR COVID-19 TESTING Routine 04/01/2022 9:24 EDT Resu lts for this procedure are i n the results section. documented in this encounter Results COVID-19 TEST [facility] LAB PCR (04/01/2022 9:24 EDT) Specimen Anatomical Collection Method Collection Time Receive d Time (Source) Location / / Volume Laterality Swab 04/01/2022 9:24 04/02/2022 EDT 21:33 EDT Provider Outr Resulting Lab MICROBIOLOGY - GENERAL ORD ERABLES Performing Organization Address City/State/ZIP Code Phon e Number [facility] [address] [place] [address] SERVICES COVID-19 TESTING (04/01/2022 9:24 EDT) Analysis Performed At Patho logist Time Signature COVID-19 Negative Negative 04/03/2022 [facility] rt-PCR Result 1:51 EDT CENTER [facility] SERVICES Comment: This test [...] tions, patient history, and epidemiologi joyce information. Performed on the [employer] [place] [employer] Fusion instrument Performing Lab [place] [facility] Lab 04/03/2022 1:51 E DT [facility] SERVICES Specimen Anatomical Collection Method Collection Time Receive d Time (Source) Location / / Volume Laterality Swab 04/01/2022 9:24 04/02/2022 EDT 21:33 EDT Provider Outr Resulting Lab MICROBIOLOGY - GENERAL ORD ERABLES Performing Organization Address City/State/ZIP Code Phon e Number [facility] [address] [place] [address] SERVICES documented in this encounter Visit Diagnoses Not on filedocumented in this encounter Care Teams Cooky Packer Relationship Specialty Start Date End Date Malgorzata Orellana NP PCP - General 08/24/20 07/06/22 [address] [place], [place] [phone] Odalys Escobar FNP PCP - General 07/07/[address] [place], [place] [phone] documented as of this encounter
--- OUTSIDE RECORDS SUMMARY | 2022-10-04 12:27 | XMS_ITS | Encounter Summary ---
:1975 Author Organization [facility] Address [address] [place] [address] Care Team Providers Name Role Phone Tania Lee ENGRAVER ORNAMENTAL DESIGN Primary Care Provider Malgorzata Orellana ENGRAVER ORNAMENTAL DESIGN Primary Care Provider Odalys EscobarP Primary Care Provider Encounter Details Date Type Department Care Team Description 10/24/2019 Lab Requisition [facility] Unknown, Provider, Pathology & Laboratory [facility] [address] [place] [address] [place] [address] Social History Tobacco Use Types Packs/Day Years Used Date Smoking Tobacco: Never Assessed Sex Assigned at Date Recorded Female 03/07/2022 10:17 EDT documented as of this encounter Plan of Treatment Not on filedocumented as of this encounter Procedures Procedure Name Priority Date/Time Associated Diagnosis Comme nts T3, TOTAL Routine 10/24/2019 10:10 EST Results for this procedure are i n the results section . documented in this encounter Results T3, TOTAL (10/24/2019 10:10 EST) P athologist Signature T3, Total 152 97 - 169 10/24/2019 [facility] ng/dL 23:03 EST CENTER LAB[facility]ATORY SERVICES Specimen Anatomical Collection Method Collection Time Receive d Time (Source) Location / / Volume Laterality Blood VENOUS BLOOD / 10/24/2019 10:10 9 Unknown EST 21:39 EST Provider Unknown CHEMISTRY & BLOOD GAS ORDERA BLES Performing Organization Address City/State/ZIP Code Phon e Number [facility] [address] [place] [address] SERVICES documented in this encounter Visit Diagnoses Not on filedocumented in this encounter Care Teams Shroudman Relationship Specialty Start Date End Date Tania Lee, ENGRAVER ORNAMENTAL DESIGN PCP - General 02/17/15 08/23/[address] [place] [address] [facility] [place] [phone] Malgorzata Orellana NP PCP - General 08/24/20 07/06/22 [address] [place], [place] [phone] Odalys Escobar FNP PCP - General 07/07/22 [address] [place], [place] [phone] documented as of this encounter
--- OUTSIDE RECORDS SUMMARY | 2022-10-04 12:27 | XMS_ITS | Encounter Summary ---
:1975 Author Organization [facility] Address [address] [place] [address] Care Team Providers Name Role Phone Tania Lee DOGMAN/WOMAN Primary Care Provider Malgorzata Orellana DOGMAN/WOMAN Primary Care Provider Odalys EscobarP Primary Care Provider Encounter Details Date Type Department Care Team Description 06/26/2020 Lab Requisition [facility] Outr Resulting Lab, Pathology & Laboratory Provider [facility] [address] [place] [address] Social History Tobacco Use Types Packs/Day Years Used Date Smoking Tobacco: Never Assessed Sex Assigned at Date Recorded Female 03/07/2022 10:17 EDT documented as of this encounter Plan of Treatment Not on filedocumented as of this encounter Procedures Procedure Name Priority Date/Time Associated Comments Diagnosis CELIAC DISEASE PANEL Today 06/26/2020 12:35 Res ults for this EDT procedure are i n the results section. HOLD SST Today 06/26/2020 12:35 Results for this EDT procedure are i n the results section. HOLD SST Today 06/26/2020 12:35 Results for this EDT procedure are i n the results section. THYROPEROXIDASE ANTIBODY Today 06/26/2020 12:35 Results for this EDT procedure are i n the results section. T3, TOTAL Today 06/26/2020 12:35 Results for this EDT procedure are i n the results section. documented in this encounter Results HOLD SST (06/26/2020 12:35 EDT) athologist Signature Hold Hold 06/26/2020 [facility] 22:01 EDT CENTER LAB[facility] SERVICES Specimen Anatomical Collection Method Collection Time Receive d Time (Source) Location / / Volume Laterality Blood VENOUS BLOOD / 06/26/2020 12:35 0 Unknown EDT 20:47 EDT Provider Outr Resulting Lab LAB INFO SERVICE AND SUPPO RT & PHONE RESULT Performing Organization Address City/State/ZIP Code Phon e Number [facility] [address] [place] [address] SERVICES HOLD SST (06/26/2020 12:35 EDT) athologist Signature Hold Hold 06/26/2020 [facility] 22:01 EDT [facility] Specimen Anatomical Collection Method Collection Time Receive d Time (Source) Location / / Volume Laterality Blood VENOUS BLOOD / 06/26/2020 12:35 0 Unknown EDT 20:47 EDT Provider Outr Resulting Lab LAB INFO SERVICE AND SUPPO RT & PHONE RESULT Performing Organization Address City/[facility]/ZIP Code Phon e Number [facility] [address] [place] [address] SERVICES T3, TOTAL (06/26/2020 12:35 EDT) athologist Signature T3, Total 145 97 - 169 06/26/2020 [facility] ng/dL 23:56 EDT [facility] Specimen Anatomical Collection Method Collection Time Receive d Time (Source) Location / / Volume Laterality Blood VENOUS BLOOD / 06/26/2020 12:35 0 Unknown EDT 20:47 EDT Provider Outr Resulting Lab CHEMISTRY & BLOOD GAS MURPHY PARRA Performing Organization Address City/State/ZIP Code Phon e Number [facility] [address] [place] [address] SERVICES THYROPEROXIDASE ANTIBODY (06/26/2020 12:35 EDT) [facility] Method Time Signature Thyroperoxidase Ab <28 <=60 U/mL 06/29/2020 [facility] 9:32 EDT [facility] Specimen Anatomical Collection Method Collection Time Receive d Time (Source) Location / / Volume Laterality Blood VENOUS BLOOD / 06/26/2020 12:35 0 Unknown EDT 20:47 EDT Provider Outr Resulting Lab CHEMISTRY & BLOOD GAS MURPHY PARRA Performing Organization Address [facility] Phon e Number [facility] [address] [place] [address] SERVICES CELIAC DISEASE PANEL (06/26/2020 12:35 EDT) [facility] Method Time Signature Tissue <1.2 <4.0 U/mL 06/29/2020 [facility] Transglutaminase 15:13 EDT CENTER Antibody [facility] Comment: A negative result may be due to IgA defi ciency and does not rule out celiac disease. ? Negative: ??<4.0 U/mL ? Weak Positive: ??4.0 - 1 0.0 U/mL ? Positive: ??>10.0 U/mL Results were obtained with the [employer] JAVIER NTA Lite R h-tTG IgA MARIBELL assay on the boo-box DSX. IgA 108 85 - 499 06/29/2020 [facility] mg/dL 15:13 T CENTER LABORATORY SERVICES Celiac Disease Negative Serology. 06/29/2020 [facility] M EDICAL Interpretation Celiac disease 15:13 EDT CENTER unlikely. LABORATORY Approximately 10% of SERVICES patients with celiac disease are seronegative. Patients who are already adhering to a gluten-free diet may also be seronegative. If celiac disease is highly clinically suspected, referral to gastroenterology for additional evaluation is recommended. Specimen Anatomical Collection Method Collection Time Receive d Time (Source) Location / / Volume Laterality Blood VENOUS BLOOD / 06/26/2020 12:35 0 Unknown EDT 20:47 EDT Provider Outr Resulting Lab IMMUNOLOGY AND SEROLOGY OR DERABLES Performing Organization Address City/[facility]/ZIP [facility] Phon e Number [facility] [address] [place] [address] SERVICES documented in this encounter Visit Diagnoses Not on filedocumented in this encounter Care Teams Rigger Chief Relationship Specialty Start Date End Date Tania Lee NP PCP - General 02/17/15 08/23/[address] [place] [address] [place] [phone] Malgorzata Orellana NP PCP - General 08/24/20 07/06/22 [address] [place] [address] Odalys Escobar FNP PCP - General 07/07/22 [address] [facility], [place] [phone] documented as of this encounter
--- OUTSIDE RECORDS SUMMARY | 2022-10-04 12:27 | XMS_ITS | Encounter Summary ---
:1975 Author Organization [facility] Address [address] [place] [address] Care Team Providers Name Role Phone Odalys Escobar Primary Care Provider Reason for Visit Reason Comments Hyperthyroidism NPV Referral (Routine) - Receiving Office to Obtain Authorization Specialty Diagnoses / Procedures Referred By Contact Refer red To Contact Endocrinology Diagnoses Hyperthyroidism, subclinical Odalys Escobar FNP [place] [address] [address] Endocrinology [place], [place] [address] [address] [place] [place] [address] Phone: Fax: Referral ID Status Reason Start Expiration Visits Visits Date Date Requested Authorized [id number] Receiving Office 1 1 to Obtain Authorization Encounter Details Date Type Department Care Team Description 07/07/2022 Office Visit [facility] Ros Cornelius ica Endocrinology - Tushar De La Cruz MD PhD hyperthyroidism (Primary [address] [facility] Dx) [place], [place] [address] [place] [address] [place] [id number] Social History Tobacco Use Types Packs/Day Years Used Date Smoking Tobacco: Every Day Smokeless Tobacco: Current Sex Assigned at Date Recorded Female 03/07/2022 10:17 EDT documented as of this encounter Last Filed Vital Signs Vital Sign Reading Time Taken Comments Blood Pressure 115/71 07/07/2022 0928 EDT Pulse 77 07/07/2022 0928 EDT Temperature - - Respiratory Rate - - Oxygen Saturation - - Inhaled Oxygen Concentration - - Weight 68 kg (150 lb) 07/07/2022927 EDT Height 151 cm (4' 11.45) 07/07/2022927 EDT Body Mass Index 29.84 07/07/2022927 EDT documented in this encounter Functional Status Functional Status Response [...] making decisions? documented as of this encounter Patient Instructions Patient InstructionsRos Cornelius MD PhD - 07/07/2022 9:20 EDT You have a diffuse goiter-your gland is about 1.9x4 cm and usually is about 1.5x3.5 cm So what causes a goiter-simple (not enough iodine as a child in diet), smoldering Graves', Toby's, colloid nodular goiter-you do not have that Graves' disease is where an antibody is made that causes the thyroid to enlarge (goiter) and become over-active (hyperthyroidism). Symptoms of hyperthyroidism include unintentional weight loss, increased anxiety, feeling sweaty andhot, palpitations of the heart and tremulousness. Treatments include medication like Methimazole (MMI) or Propylthiouracil (PTU), radioactive iodine or surgical removal of the gland. If medication is chosen, generally people take this for 1.5-2 years and then it is withdrawn to see if the disease will stay in remission. Toby's thyroiditis is where the body makes antibodies that interfere with thyroid hormone production. The gland enlarges (goiter), often is lumpy, bumpy and can fail to make enough thyroid hormone(under-active gland or hypothyroidism). Hypothyroid symptoms can be a little non-specific but include weight gain, fatigue, constipation, heavier menses and feeling cold. Treatment is thyroid medication. documented in this encounter Progress Notes Aliyah Toribio MA - 07/07/2022 0920 EDT A venous blood collection was performed today via venipuncture on this patient. I was supervised by Meera Delacruz DO who was present and immediately available in the office suite. ALIYAH TORIBIO MA 07/07/2022 10:30 Ros Cornelius MD PhD - 07/07/2022 0920 EDT Images from the original note were not included. Endocrinology Initial Thyroid Evaluation CHIEF COMPLAINT: Chief Complaint Patient presents with ??? Hyperthyroidism NPV HPI: Franchesca Dickson is a 46 y.o. female who is seen in a [id number] visit for: ICD-10-CM ICD-9-CM 1. Subclinical hyperthyroidism E05.90 242.90 HPI Ms. Dickson is sent here as she went to [facility] which is close to her home area, and was told that she had fluctuating thyroid function and Graves' and Toby's. She had the impression that shecould not be helped, and is here seeking more evaluation. Symptoms have been present for most of her life. She has noted palpitations, chest pain and SOB. She has had dysphagia. She has overwhelming fatigue despite use of stimulants. She says that she will get blurred or double vision. Menses were always irreg, but now post-hysterectomy. Says symptoms of thyroid were present before use of Li. Family history includes None Medications: None for thyroid Hx of use of Li Has hx of Fibromyalgia, PTSD, Bipolar disorder. Prior studies/tests include Ultrasound showed goiter with some small cysts. PAST MEDICAL HISTORY Past Medical History: Diagnosis Date ??? Thyroid disease No past surgical history on file. No family history on file. Social History Socioeconomic History ??? Marital status: Spouse name: None ??? Number of children: None ??? Years of education: None ??? Highest education level: None Occupational History ??? None Tobacco Use ??? Smoking status: Current Every Day Smoker ??? Smokeless tobacco: Current User Vaping Use ??? Vaping Use: Never assessed Substance and Sexual Activity ??? Alcohol use: None ??? Drug use: None ??? Sexual activity: None Other Topics Concern ??? None Social History Narrative ??? None Social Determinants of Health Financial Resource Strain: Not on file Food Insecurity: Not on file Transportation Needs: Not on file Physical Activity: Not on file Stress: Not on file Social Connections: Not on file MEDICATIONS Franchesca has a current medication list which includes the following prescription(s): alprazolam, alprazolam, aspirin, clopidogrel, difluprednate, methylphenidate hcl, methylphenidate hcl, methylphenidatehcl, olanzapine, pantoprazole, pregabalin, topiramate, and vilazodone. ALLERGIES Shellfish containing products, Erythromycin, Sulfa (sulfonamide antibiotics), Sulfur, and Tree nut REVIEW OF SYSTEMS: JAKI Has dysphagia, no hoarseness, both diarrhea and constip,has muscle cramping. Appetite and weightare stable. Has chest pain, SOB and palpitations. OBJECTIVE: Vitals: BP 115/71 Pulse 77 Ht (!) 151 cm (59.45) Wt 68 kg (150 lb) BMI 29.84 kg/m?? BMI: Body mass index is 29.84 kg/m??. Physical Exam General: alert, cooperative, no distress Eyes: no lid lag, periorbital edema, stare, proptosis or exophthalamus. EOM full. Neck: abnormal thyroid: enlarged and no dominant nodules Lung: clear to auscultation bilaterally, non labored breathing Heart: regular rate and rhythm Abdomen: deferred Extremities: extremities warm, atraumatic, no cyanosis or edema positive pulses bilat Pulses: 2+ and symmetric Skin: cool and dry Neuro: reflexes normal with no hung-up relaxation phase mental status, speech normal, alert and oriented x iii muscle tone and strength normal and symmetric no tremors U/SD shows goitrous enlargement of gland bilaterally with small colloid cyst seen. LAB REVIEW: No results found for: TSH Lab Results Component Value Date [id number] 145 06/26/2020 Lab Results Component Value Date THYROIDAB <28 06/26/2020 ASSESSMENT: We discussed that patients do not have both Graves' and Toby's at the same time. Asthe thyroid ABs are less specific for Toby's than Graves' many with Graves' can have positive TPO ABs in the background. The designation of Graves' or Toby's depends on Thyroid function with the former being a lower TSH and the latter a higher TSH. [place] can lead to either hyper- or hypothyroidism being related to iodine in the periodic table. Some people can have Graves' hyperthyroidism and later Toby's based hypothyroidism are both areautoimmune thyroid diseases. The type one has depends on the thyroid function. Some can also have Toby's and then have an episode of Graves'. What is rarer but can also occur is some persons have an AB that is like thyrotropin receptor AB that stimulates causing hyperthyroidism and then blocks later causing hypothyroidism. In any event Thyroid function can be tracked with blood testing and does not depend on ABs as persons can have positive ABs and be euthyroid if ABs are at that time not active. We discussed that if she has fluctuating disease, she may need more frequent labs and since she lives a bit far could arrange to do with PCP and sent here. Today her pulse is < 90 so on exam no overt hyperthyroidism. ICD-10-CM ICD-9-CM 1. Subclinical hyperthyroidism E05.90 242.90 Ultrasound is the anatomy of the gland and does not tell us gland function. On exam she has a goiteror diffuse enlargement which could be from Graves' or Toby's. We will get updated labs of function and AB profiles. It is noted that thyroid is treated depending on TFTs and not AB levels. PLAN: 1. Labs today for TSH, FT4, TT3, TSH rec AB, TPO AB and Tg AB. 2. No medication dispensed yet. The risks and benefits of my recommendations, as well as other treatment options were discussed with the patient and today. Questions were answered. Ros Cornelius MD PhD 07/07/2022 10:40 documented in this encounter Plan of Treatment Not on filedocumented as of this encounter Procedures Procedure Name Priority Date/Time Associated Diagnosis Comme nts THYROTROPIN RECEPTOR Routine 07/07/2022 10:30 Subclinical Res ults for this ANTIBODY EDT hyperthyroidism procedure ar e in the results section. THYROPEROXIDASE Routine 07/07/2022 10:30 Subclinical Results for this ANTIBODY EDT hyperthyroidism procedure ar e in the results section. ANTI THYROGLOBULIN Routine 07/07/2022 10:30 Subclinical Resul ts for this EDT hyperthyroidism procedure ar e in the results section. T3, TOTAL Routine 07/07/2022 10:30 Subclinical Results for this EDT hyperthyroidism procedure ar e in the results section. TSH Routine 07/07/2022 10:30 Subclinical Results for this EDT hyperthyroidism procedure ar e in the results section. T4 FREE Routine 07/07/2022 10:30 Subclinical Results for this EDT hyperthyroidism procedure ar e in the results section. documented in this encounter Results POC ENDOCRINE US THYROID (09/01/2022 9:26 EDT) Specimen (Source) Anatomical Location Collection Method / Collectio n Time Received Time / Laterality Volume Narrative 09/01/2022 9:26 EDT This is a non-reportable exam. Ros Cornelius MD PhD IMG US POC ORDERABLES ANTI THYROGLOBULIN (07/07/2022 10:30 EDT) P athologist Signature Anti-Thyroglob <15 <=60 U/mL 07/07/2022 [facility] ulin 16:54 EDT [facility] Specimen Anatomical Collection Method / Collection Time Recei yoav Time (Source) Location / Volume Laterality Blood VENOUS BLOOD / Venipuncture / 07/07/2022 10:30 022 Unknown Unknown EDT 10:31 EDT Ros Cornelius MD PhD CHEMISTRY & BLOOD GAS ORDERA BLES Performing Organization Address City/State/ZIP Code Phon e Number [facility] [address] [place] [address] SERVICES THYROPEROXIDASE ANTIBODY (07/07/2022 10:30 EDT) Patholo gist Method Time Signature Thyroperoxidase Ab 29 <=60 U/mL 07/07/2022 [facility] L 16:57 EDT [facility] Specimen Anatomical Collection Method / Collection Time Recei yoav Time (Source) Location / Volume Laterality Blood VENOUS BLOOD / Venipuncture / 07/07/2022 10:30 022 Unknown Unknown EDT 10:31 EDT Ros Cornelius MD PhD CHEMISTRY & BLOOD GAS ORDERA BLES Performing Organization Address City/State/ZIP Code Phon e Number [facility] [address] [place] [address] SERVICES THYROTROPIN RECEPTOR ANTIBODY (07/07/2022 10:30 EDT) Patholo gist Method Time Signature Thyrotropin <1.10 0.00 - 07/08/2022 [facility] Receptor Ab, S 1.75 IU/L 16:51 EDT LABORATORIES Comment: ADDITIONAL INFORMATIO N At a decision limit of 1.75 IU/L, this a ssay has 97% sensitivity and 99% specificity for detection of Graves' disease. In healthy individuals and in patients with thyroid disease without diagnosis of Graves' disease, e upper limit of anti-TSHR values are 1.22 IU/L and 1.58 IU/L, respectively (97.5th percenti les). Test Performed by: [place] [address] Wood Treating Inspector: Kodak Collins M.D. Ph. D.; CLIA# [id number] Specimen Anatomical Collection Method / Collection Time Recei yoav Time (Source) Location / Volume Laterality Blood VENOUS BLOOD / Venipuncture / 07/07/2022 10:30 022 Unknown Unknown EDT 10:31 EDT Ros Cornelius MD PhD CHEMISTRY & BLOOD GAS ORDERA BLES Performing Organization Address City/[facility]/ZIP Code Phon e Number [facility] [address] [place] [address] T3, TOTAL (07/07/2022 10:30 EDT) P athologist Signature T3, Total 116 97 - 169 07/07/2022 [facility] ng/dL 15:11 EDT [facility] Specimen Anatomical Collection Method / Collection Time Recei yoav Time (Source) Location / Volume Laterality Blood VENOUS BLOOD / Venipuncture / 07/07/2022 10:30 022 Unknown Unknown EDT 10:31 EDT Ros Cornelius MD PhD CHEMISTRY & BLOOD GAS ORDERA BLES Performing Organization Address City/[facility]/ZIP Code Phon e Number [facility] [address] [place] [address] SERVICES T4 FREE (07/07/2022 10:30 EDT) athologist Signature T4, Free 1.5 0.8 - 2.2 07/07/2022 [facility] ng/dL 14:57 EDT [facility] Specimen Anatomical Collection Method / Collection Time Recei yoav Time (Source) Location / Volume Laterality Blood VENOUS BLOOD / Venipuncture / 07/07/2022 10:30 022 Unknown Unknown EDT 10:31 EDT Ros Cornelius MD PhD CHEMISTRY & BLOOD GAS ORDERA BLES Performing Organization Address City/State/ZIP Code Phon e Number [facility] [address] [place] [address] SERVICES (ABNORMAL) TSH (07/07/2022 10:30 EDT) athologist Signature TSH 0.10 (L) 0.47 - 4.68 07/07/2022 [facility] mIU/L 15:11 EDT [facility]ENTER [facility] Specimen Anatomical Collection Method / Collection Time Recei yoav Time (Source) Location / Volume Laterality Blood VENOUS BLOOD / Venipuncture / 07/07/2022 10:30 022 Unknown Unknown EDT 10:31 EDT Narrative [facility] - 07/07/2022 15:11 EDT The results of this assay can be falsely lowered due to the consumption of Biotin. Ros Cornelius MD PhD CHEMISTRY & BLOOD GAS ORDERA BLES Performing Organization Address City/State/ZIP Code Phon e Number [facility] [address] [place] [address] SERVICES documented in this encounter Visit Diagnoses Diagnosis Subclinical hyperthyroidism - Primary Thyrotoxicosis without mention of goiter or other cause, without mention of thyrotoxic crisis or storm Subclinical hyperthyroidism Thyrotoxicosis without mention of goiter or other cause, without mention of thyrotoxic crisis or storm documented in this encounter Historical Medications This list may reflect changes made after this encounter. Medication Sig Dispensed Refills Start Date End Date vilazodone (VIIBRYD) 40 mg Take 40 mg by mouth 0 06/29/2022 tablet daily. topiramate (TOPAMAX) 100 mg Take 100 mg by mouth 0 06/10/2022 tablet at bedtime. pregabalin (LYRICA) 150 mg Take by mouth 2 0 08/0 01/2022 capsule times daily. pantoprazole (PROTONIX) 40 TAKE 1 TABLET 30 0 mg tablet MINUTES BEFORE BREAKFAST AND EVENING MEAL OLANZapine (ZYPREXA) 10 mg Take 10 mg by mouth 0 06/21/2022 tablet at bedtime. methylphenidate HCl Take 10 mg by mouth 0 022 (RITALIN;METHYLIN) 10 mg daily. tablet methylphenidate HCl Take 20 mg by mouth 0 022 (RITALIN;METHYLIN) 20 mg 3 times daily. tablet methylphenidate HCl Take 20 mg by mouth 0 022 (RITALIN;METHYLIN) 20 mg daily. tablet difluprednate 0.05 % drops INSTILL ONE DROP 0 INTO RIGHT EYE FOUR TIMES A DAY clopidogreL (PLAVIX) 75 mg Take 75 mg by mouth 0 04/06/2022 tablet daily. aspirin 325 mg tablet Take 325 mg by mouth 0 2 03/2022 daily. ALPRAZolam (XANAX) 0.5 mg Take 0.5 mg by mouth 0 04/19/2022 tablet daily. ALPRAZolam (XANAX) 1 mg Take 1 mg by mouth 0 tablet daily. added in this encounter Care Teams Carpet Inspector Finished Relationship Specialty Start Date End Date Odalys Escobar FNP PCP - General 07/07/22 [place] [address] documented as of this encounter
--- OUTSIDE RECORDS SUMMARY | 2022-10-04 12:27 | XMS_ITS | Encounter Summary ---
:1975 Author Organization [facility] Address [address] [place] [address] Care Team Providers Name Role Phone Zafar Leemarquis Vallecillo COTTON GRADER Primary Care Provider Encounter Details Date Type Department Care Team Description 03/26/2019 Results Only [facility]- Carla Tafoya, [address] [place] [address] (Wo rk) Social History Tobacco Use Types Packs/Day Years Used Date Smoking Tobacco: Never Assessed Sex Assigned at Date Recorded Female 03/07/2022 10:17 EDT documented as of this encounter Plan of Treatment Not on filedocumented as of this encounter Procedures Procedure Name Priority Date/Time Associated Diagnosis Comme [facility] SURGICAL PATHOLOGY Routine 03/26/2019 15:46 Resul ts for this EDT procedure are i n the results section. documented in this encounter Results SURGICAL PATHOLOGY (03/26/2019 15:46 EDT) Component Value Ref Test Analysis Performed At [facility] Method Time Signature Pathology SURGICAL PATHOLOGY REPORT [facility] MEDICAL Report: Reports generated via electronic interface contain origina l data; CENTER however they are lacking the format of the original report. LABORATORY Caution should be taken when reading/interpreting unformat nena reports. SERVICES Name: ? ROBERT BACH ? Accession #: ? [id number] ? : ? 1975 (Age: 43 ) ??F ? Collect Date: ? 03/26/2019 ? Location: ? [facility] ? Receive Date: ? 03/26/2019 ? Provider: CARLA MERRILL MD Copy to: FRANSICO RAMIREZ COTTON GRADER ? Final Pathologic Diagnosis: A. stomach, antrum, biopsy: - ??Antral and transitional mucosa with mild reactive gastro radha. - ??No evidence of Helicobacter pylori on H&E. B. gastroesophageal junction, biopsy: - ??Columnar mucosa with reactive featur es, negative for dysplasia or definite intestinal metaplasia. - ??Mild foveolar hyperplasia and inflammation, compatible w ith reflux esophagitis. - ??No squamous mucosa is present. C. rectum, polyp, biopsy: - ??Fragments of hyperplastic polyp with features of mucosal prolapse. D. colon, sigmoid, polyp, biopsy: - ??Fragment of hyperplastic/ inflammatory polyp. E. small bowel, terminal ileum, biopsy: - ??Enteric mucosa with no significant abnormality. F. colon, Ascending, biopsy: - ??Colonic mucosa with mild architectural disarray and patchy surface epithelial damage. See comment. ?? G. colon, transverse, biopsy: - ??Colonic mucosa with mild architectural disarray and patchy surface epithelial damage. See comment H. colon, descending, biopsy: - ??Colonic mucosa with mild architectural disarray and patchy surface epithelial damage. See comment I. colon, descending, polyp, biopsy: - ??Fragment of tubular adenoma. ?? J. colon, SIGMOID, biopsy: - ??Colonic mucosa with mild architectural disarray and patchy surface epithelial damage. See comment K. RECTUM, biopsy: - ??Colorectal mucosa with mild architectural disarray and p atchy surface epithelial damage. See comment Comment: The surface epithelium shows evidence of injury; there is mucosal congestion/ hemorrhage and in rectum borders on early ischemia. Th ere no significant but only rare foci with increase in intraepi thelial lymphocytes. Features noted in these biopsies are mild and not entirely specific. These findings can be seen in context of resolved acute injury or medication/ drug effect, less likely, possibilities of evolving co llagenous colitis or Celiac disease are not entirely excluded and clinical correlation is recommended. Part B: th ere is focally tissue clearing artifact in one level only, raising the po ssibility of rare goblet cell/ focal intestina l metaplasia but overall glanular features does not support this diagnosis. ?? Document reviewed and electronically signed by: ANALIA IBANEZ MD Report ??Date: 03/29/2019 13:57 By the signature above, the attending physician certifies th at he/she has personally conducted a gross and/or microscopic examin ation of the described specimens and rendered or confirmed the above diagnosis. Specimen(s) Received: A. ??Antrum biopsies B. ??GE junction biopsies C. ??Rectal polyp D. ??Sigmoid polyp E. ??Bxs terminal ileum F. ??Bxs ascending colon G. ??Bxs transverse colon H. ??Bxs descending colon I. ??Descending colon polyp J. ??Bxs sigmoid K. ??Bx rectum Clinical History: Chronic diarrhea; GERD Gross Description: A. ?Received in formalin labelled with proper patie nt identification (initials A, N) and antrum biopsies are three pink-prieto tissues (0.2 x 0.2 x 0.1 cm to 0.4 x 0.2 x 0.1 cm). Entirely submitted in block A 1. B. ?Received in formalin labelled with proper patie nt identification (initials A, N) and GE junc tion biopsies are three pink-prieto tissues (0.1 x 0.1 x 0.1 cm to 0.5 x 0.2 x 0.1 cm). Entirely submitted in block B1. C. ?Received in formalin labelled with proper patie nt identification (initials A, N) and rectal polyp are two pink-prieto tissues (0.3 x 0.2 x 0.1 cm and 0.4 x 0.2 x 0.1 cm). Entirely submitted in block C1. D. ?Received in formalin labelled with proper patie nt identification (initials A, N) and sigmoid polyp is a single pink-prieto tissue fragment (0.4 x 0.2 x 0.2 cm). Submitted intact in block D1. E. ?Received in formalin labelled with proper patie nt identification (initials A, N) and biopsie s terminal ileum are seven prieto-brown tissues (0.3 x 0.2 x 0.1 cm to 0.7 x 0.1 x 0.1 cm). Entirely submitted in b locks E1-E2. F. ?Received in formalin labelled with proper patie nt identification (initials A, N) and biopsie s ascending colon are five pink-prieto tissues (0.2 x 0.1 x 0.1 cm to 0.7 x 0.1 x 0.1 cm). Entirely submitted in b locks F1-F2. G. ?Received in formalin labelled with proper patie nt identification (initials A, N) and biopsie s transverse colon are four pink-prieto tissues (0.3 x 0.2 x 0.1 cm to 0.7 x 0.2 x 0.1 cm). Entirely submitted in block G1. H. ?Received in formalin labelled with proper patie nt identification (initials A, N) and biopsie s descending colon are four pink-prieto tissues (0.3 x 0.2 x 0.1 cm to 0.5 x 0.3 x 0.1 cm). Entirely submitted in block H1. I. ?Received in formalin labelled with proper patie nt identification (initials A, N) and descend ing colon polyp is a single light prieto tissue (0.5 x 0.3 x 0.2 cm). Entirely submitted in block I1. J. ?Received in formalin labelled with proper patie nt identification (initials A, N) and biopsies sigmoid a re eight pink-prieto tissues (0.3 x 0.2 x 0.1 cm to 0.6 x 0.3 x 0.1 cm). Entirely submitted in blocks J1-J3. K. ?Received in formalin labelled with proper patie nt identification (initials A, N) and biopsie s rectum are four pink-prieto tissues (0.3 x 0.2 x 0.1 cm to 0.6 x 0.1 x 0.1 cm). Entirely submitted in blocks K1-K 2. JACOBY Vazquez (ASCP) 03/27/2019 8:51 AM End of Report Specimen Anatomical Collection Method Collection Time Receive d Time (Source) Location / / Volume Laterality 03/26/2019 15:46 03/26/2019 EDT 15:46 EDT Carla Merrill MD PATHOLOGY ORDERABLES Performing Organization Address City/State/ZIP Code Phon e Number [facility] [address] [place] [address] SERVICES documented in this encounter Visit Diagnoses Not on filedocumented in this encounter Care Teams Correctional Case Records Supervisor Relationship Specialty Start Date End Date Tania Lee, C[employer]TON GRADER PCP - General 02/17/15 08/23/[address] [place] [address] [place] [id number] documented as of this encounter
--- OUTSIDE RECORDS SUMMARY | 2022-10-04 12:27 | XMS_ITS | Encounter Summary ---
:1975 Author Organization [facility] Address [address] [place] [address] Care Team Providers Name Role Phone Malgorzata Orellana FISHERIES TECHNICAL OFFICER Primary Care Provider Odalys EscobarP Primary Care Provider Encounter Details Date Type Department Care Team Description 03/24/2021 Lab Requisition [facility] Katie Hubbard, En counter for other Pathology & MD general examination Laboratory Medicine [address] [facility] [address] [place] [address] Social History Tobacco Use Types Packs/Day Years Used Date Smoking Tobacco: Never Assessed Sex Assigned at Date Recorded Female 03/07/2022 10:17 EDT documented as of this encounter Plan of Treatment Not on filedocumented as of this encounter Procedures Procedure Name Priority Date/Time Associated Diagnosis Comme nts SURGICAL PATHOLOGY Today 03/24/2021 13:16 Encounter for othe r Results for this EDT general examination procedur e are in the results section. documented in this encounter Results SURGICAL PATHOLOGY (03/24/2021 13:16 EDT) Component Value Ref Test Analysis Performed At [facility] Range Method Time Signature Final A. UTERUS, CERVIX, AND SUBMI TTED BILATERAL FALLOPIAN TUBES, HYSTERECTOMY AND SALPINGECTOMY: 03/29/2021 [facility] AL Diagnosis - Endometrium: 18:02 EDT CENTER - Weakly proliferative with focal breakdown. LABORATORY - Myometrium: SERVICES - Adenomyosis. - Cervix: - No specific pathologic features. - Serosa: - No specific pathologic features. - Fallopian tube, left: - Adhesions. - Right fallopian tube not identified. Attestation There was 03/29/2021 [facility] MEDICAL Elect ronically significant 18:02 [facility] signed b y resident/fellow LABORATORY But Nisha wei, involvement in SERVICES MD on 03/29/2021 the diagnostic at 18 02 evaluation of this case. By the signature below, the attending physician certifies that they have personally conducted a gross and/or microscopic examination of the described specimens and rendered or confirmed the above diagnosis. Clinical Abnormal uterine 03/29/2021 [facility] MED[facility] History bleeding 18:02 [facility] LABORATORY SERVICES Gross A. 03/29/2021 [facility] MEDICAL Description Received in formalin maria fernanda d with proper patient identification (initials A, N) and uterus, cervix, bilateral fallopian tubes is an intact unopened uterus (54 g, 8.8 cm fundus to cervix by 3.8 cm cor 18:02 [facility] nu to cornu by 3.8 cm anteri or to posterior) and attached left fallopian tube (5.7 cm in length by 0.5 cm in diameter). The right fallopian tube is not identified. Attached to the right cornu is a 3.0 x LABORATORY 0.7 x 0.3 cm fragment of ca uterized soft tissue. No additional tube is identified within the container. The serosa of the anterior surface is cauterized, red-brown, and focally disrupted, while the pos SERVICES terior serosa is smooth and prieto-arias. The cervix (2.6 cm in diameter) is covered by smooth prieto ectocervical mucosa and has a slit-like os (1.3 cm in diameter). The endocervical canal (3.5 cm in length) is lined by prieto herringbone mucosa. The endometrial cavity (1.2 cm cornu to cornu by 3.5 cm in length) is lined by soft red-brown endometrium (0.2 cm in maximum thickness). The prieto, somewhat coarsely tr abeculated myometrium has a maximum thickness of 1.7 cm. No intramural, submucosal, or subserosal nodules are identified. The left fallopian tube has smooth purple serosa and has an attached portion of adipose tissue (1.3 cm in greatest dimension). Sectioning reveals a patent unremarkable lumen. Sports Fitness And Wellness Director sections are submitted as follows: BLOCK EREVES A1- anterior cervix to lower uterine segment, bisected A2- posterior cervix to lower uterine segment, bisected A3-A4- event sales representative anterior endomyometrium A5-A6- event sales representative posterior endomyometrium A7- left fallopian tube to include bisected fimbria A8- tissue attached to right cornu JACOBY AVILES(ASCP) 03/25/2021 10:21 Resident/Frank Amezcua, 03/29/2021 [facility] KEV[facility] w: 18:02 [facility] LABORATORY SERVICES Performing Lab [facility] 03/29/2021 [facility] AL LAB 18:02 EDT CENTER LABORATORY SERVICES Scanned Images 03/29/2021 [facility] MEDICAL 18:02 T CENTER LABORATORY SERVICES Specimen Anatomical Collection Method Collection Time Receive d Time (Source) Location / / Volume Laterality Tissue SPECIMEN FROM 03/24/2021 13:16 03/24/2021 UTERUS / Unknown EDT 23:37 EDT Katie Hubbard MD PATHOLOGY ORDERABLES Performing Organization Address City/State/ZIP Code Phon e Number [facility] [address] [place] [address] SERVICES documented in this encounter Visit Diagnoses Diagnosis Encounter for other general examination documented in this encounter Care Teams Watch Leader Relationship Specialty Start Date End Date Malgorzata Orellana, LLOYD PCP - General 08/24/20 07/06/22 [address] [place], [place] [phone] Odalys Escobar FNP PCP - General 07/07/22 [address] [place], [place] [address] documented as of this encounter
--- OUTSIDE RECORDS SUMMARY | 2022-10-04 12:27 | XMS_ITS | Encounter Summary ---
:[address] [facility] Address [address] [place] [address] Care Team Providers Name Role Phone Tania Lee WOMEN'S STUDIES LECTURER Primary Care Provider Malgorzata Orellana WOMEN'S STUDIES LECTURER Primary Care Provider Odalys EscobarP Primary Care Provider Encounter Details Date Type Department Care Team Description 07/10/2020 Lab Requisition [facility] Outr Resulting Lab, Pathology & Laboratory Provider [facility] [address] [place] [address] Social History Tobacco Use Types Packs/Day Years Used Date Smoking Tobacco: Never Assessed Sex Assigned at Date Recorded Female 03/07/2022 10:17 EDT documented as of this encounter Plan of Treatment Not on filedocumented as of this encounter Procedures Procedure Name Priority Date/Time Associated Diagnosis Comme nts OVA/PARASITE EXAM Routine 07/10/2020 7:06 EDT Res ults for this procedure are i n the results section. documented in this encounter Results OVA/PARASITE EXAM (07/10/2020 7:06 EDT) [facility] Method Time Signature Parasite No ova and 07/13/2020 [facility] MED[facility] parasites 10:49 EDT CENTER seen. LABORATORY SERVICES Specimen Anatomical Collection Method Collection Time Receive d Time (Source) Location / / Volume Laterality Feces SPECIMEN FROM 07/10/2020 7:06 07/10/2020 [facility] / Unknown EDT 22:27 EDT Narrative [facility] LABORATORY SERVICES - 07/13/2020 10:49 EDT (If Cryptosporidium, Cyclospora, or Micr osporidium are suspected, specific tests must be requested.) Single negative specimen does not rule out the possibility of a parasitic infection. Provider Outr Resulting Lab MICROBIOLOGY - GENERAL ORD ERABLES Performing Organization Address City/State/ZIP Code Phon e Number [facility] [address] [place] [address] SERVICES documented in this encounter Visit Diagnoses Not on filedocumented in this encounter Care Teams Interior Design Instructor Relationship Specialty Start Date End Date Tania Lee NP PCP - General 02/17/15 08/23/[address] [place] [address] [place] [phone] Malgorzata Orellana NP PCP - General 08/24/20 07/06/22 [address] [place], [place] [phone] Odalys Escobar FNP PCP - General 07/07/22 [address] [place], [place] [phone] documented as of this encounter
--- OUTSIDE RECORDS SUMMARY | 2022-10-04 12:27 | XMS_ITS | Encounter Summary ---
:1975 Author Organization [facility] Address [address] [place] [address] Care Team Providers Name Role Phone Unavailable Primary Care Provider Unavailable Encounter Details Date Type Department Care Team Description 09/24/[address] [facility] - Phuong Tripp MD Converted Visit [facility] MEDICAL ([place]) [address] [place] [address] [address] [place], [place] [phone] (Wo rk) Social History Tobacco Use Types Packs/Day Years Used Date Smoking Tobacco: Never Assessed Sex Assigned at Date Recorded Female 03/07/2022 10:17 EDT documented as of this encounter Plan of Treatment Not on filedocumented as of this encounter Procedures Procedure Name Priority Date/Time Associated Diagnosis Comme nts CYTOPATHOLOGY Routine 09/24/2008 0:00 EST Results for this procedure are i n the results section . documented in this encounter Results CYTOPATHOLOGY (09/24/2008 0:00 EST) Component Value Ref Test Analysis Performed At [facility] Pathology CYTOPATHOLOGY REPORT ? [facility] Report: ? [facility] Reports generated via electr onic interface contain original data; ? however they are lacking the format of the original report. ? Caution should be taken when reading/interpreting unformatted reports. ? Name: ? ROBERT BACH ? Accession #: ? [id number] ? : ? 1975 (Age: 32) ??F ?Collect Date: ? 09/24/2008 ? Location: ? [facility] ? Receive Date: ? 09/25/2008 ? Provider: ?PHUONG READY MD ? Copy to: ? Specimen/Source: ? Pap Test, Cervix/Endocervix, ThinPrep Imaging System ? with manual evaluation ? Last Menstrual Period: ? 11/04/08 ? Other: ? HPVA - HPV testing requested if ASC-US on the current ThinPrep Pap test. ? SPECIMEN ADEQUACY ? Satisfactory for Eval uation ? - transformation zone compon ent absent ? GENERAL CATEGORIZATION ? Negative for Intraepi thelial Lesion or Malignancy ? Document reviewed and electr onically signed by: ? Tyson Evans, CT( CP) ? Report Date: ??11/18/ 2008 13:51 ? End of Report ? Specimen (Source) Anatomical Location Collection Method / Collectio n Time Received Time / Laterality Volume 09/24/2008 09/25/2008 Phuong Tripp MD PATHOLOGY ORDERABLES Performing Organization Address City/State/ZIP Code Phon e Number [facility] [address] [place] [address] SERVICES [facility] [address] [place] [address] documented in this encounter Visit Diagnoses Not on filedocumented in this encounter
--- OUTSIDE RECORDS SUMMARY | 2022-10-04 12:27 | XMS_ITS | Encounter Summary ---
:1975 Author Organization [facility] Address [address] [place] [address] Care Team Providers Name Role Phone Malgorzata Orellana LIQUEFIER Primary Care Provider Odalys Escobar Primary Care Provider Encounter Details Date Type Department Care Team Description 08/24/2020 Lab Requisition [facility] Center Emerson Hernandez Abnormal weight loss; Pathology & MD Rolando Diarrhea, unspecified; Laboratory Medicine [address] Nausea w ith vomiting, unspecified; - [facility] Other fecal abnormalities [address] [place] [address] [phone] Social History Tobacco Use Types Packs/Day Years Used Date Smoking Tobacco: Never Assessed Sex Assigned at Date Recorded Female 03/07/2022 10:17 EDT documented as of this encounter Plan of Treatment Not on filedocumented as of this encounter Procedures Procedure Name Priority Date/Time Associated Diagnosis Comme nts SURGICAL PATHOLOGY Today 08/24/2020 8:47 Abnormal weig ht loss Results for this EDT Diarrhea, unspec ified procedure are in Nausea with vomiting, the re sults unspecified section. Other fecal abnormalities documented in this encounter Results SURGICAL PATHOLOGY (08/24/2020 8:47 EDT) Component Value Ref Test Analysis Performed At [facility] Range Method Time Signature Final A. DUODENUM, BIOPSY: 08/26/2020 [facility] Diagnosis - Small intestinal mucosa with no signif icant diagnostic abnormality. 12:30 EDT CENTER LABORATORY B. DUODENUM, BULB, BIOPSY: SER VICES - Duodenal mucosa with no significant diagnostic abnormality . C. STOMACH, BODY, BIOPSY: - Fundic mucosa with no significant diagnostic abnormality. - Negative for Helicobacter pylori microorganisms on H&E sta ined sections. D. COLON, RANDOM, BIOPSY: - Colonic mucosa with no significant diagnostic abnormality. E. RECTUM, POLYP, BIOPSY: - Hyperplastic polyp. - Deeper sections x3 examined. Attestation By the signature 08/26/2020 [facility] MEDICA L Electronically below, the 12:30 EDT CENTER signed by Fernanda attending LABORATORY Guillermina Morfin MD physician SERVICES on 020 at certifies that 1230 they have 1) personally conducted a gross and/or microscopic examination of the described specimen(s), and/or personally interpreted the results of laboratory testing of the described specimen(s), and 2) personally rendered or confirmed the above diagnosis. Clinical Diverticulosis; 08/26/2020 [facility] MEDICAL History Rectal polyp; 12:30 T CENTER R63.4; R19.7; LABORATORY R11.2; R19.5 SERVICES Gross A. 08/26/2020 [facility] MEDICAL Description Received in formalin maria fernanda d with proper patient identification (initials A, N) and Bx duodenum are 2 fragments of prieto soft tissue (0.2 x 0.2 x 0.2 cm and 0.4 x 0.2 x 0.2 cm). The specimen is entirely submitted in A1. 12:30 [facility] B. SERVICES Received in formalin bates d with proper patient identification (initials A, N) and Bx duodenal bulb is a single fragment of prieto soft tissue (0.3 x 0.2 x 0.2 cm). The specimen is entirely submitted in B1. C. Received in formalin maria fernanda d with proper patient identification (initials A, N) and Bx gastric antrum +body is a single fragment of prieto soft tissue (0.3 x 0.2 x 0.2 cm). The specimen is entirely submitted in C1. D. Received in formalin maria fernanda d with proper patient identification (initials A, N) and random colon Bx are 2 fragments of prieto-yellow soft tissue (0.2 x 0.2 x 0.2 cm and 0.5 x 0.2 x 0.2 cm). The specimen is entirely submitted in D1. E. Received in formalin maria fernanda d with proper patient identification (initials A, N) and rectal polyp is a single fragment of prieto soft tissue (0.2 x 0.2 x 0.2 cm). The specimen is entirely submitted in E1. JACOBY AVILES(ASCP) 08/25/2020 9:02 Performing Lab [facility] 08/26/2020 [facility] MEDIC AL LAB 12:30 T CENTER LABORATORY SERVICES Scanned Images 08/26/2020 [facility] MEDICAL 12:30 T CENTER LABORATORY SERVICES Specimen Anatomical Collection Method Collection Time Receive d Time (Source) Location / / Volume Laterality Tissue SPECIMEN FROM 08/24/2020 8:47 08/24/2020 [facility] / Unknown EDT 22:56 EDT Tissue specimen ENTIRE SMALL 08/24/2020 8:47 0 (specimen) INTESTINE / EDT 22:58 EDT Unknown Tissue specimen ENTIRE STOMACH / 08/24/2020 8:47 08/24 (specimen) Unknown EDT 22:58 EDT Tissue specimen ENTIRE COLON / 08/24/2020 8:47 020 (specimen) Unknown EDT 22:58 EDT Tissue specimen SPECIMEN FROM 08/24/2020 8:47 08/24/20 20 (specimen) RECTUM / Unknown EDT 22:58 EDT Emerson Hernandez MD PATHOLOGY ORDERABLES Performing Organization Address City/State/ZIP Code Phon e Number [facility] [address] [place] [address] SERVICES documented in this encounter Visit Diagnoses Diagnosis Abnormal weight loss Loss of weight Diarrhea, unspecified Nausea with vomiting, unspecified Other fecal abnormalities documented in this encounter Care Teams On Call Pharmacy Technician Relationship Specialty Start Date End Date Malgorzata Orellana NP PCP - General 08/24/20 07/06/22 [address] [place], [place] [phone] Odalys Escobar FNP PCP - General 07/07/22 [address] [place], [place] [address] documented as of this encounter
--- OUTSIDE RECORDS SUMMARY | 2022-10-04 12:27 | XMS_ITS | Encounter Summary ---
:1975 Author Organization [facility] Address [address] [place] [address] Care Team Providers Name Role Phone Esteban Malgorzata Yeung NUTRITION FACULTY MEMBER Primary Care Provider Odalys Escobar Primary Care Provider Encounter Details Date Type Department Care Team Description 09/02/2021 Lab Requisition [facility] Outr Resulting Lab, Pathology & Laboratory Provider [facility] [address] [place] [id number] Social History Tobacco Use Types Packs/Day Years Used Date Smoking Tobacco: Never Assessed Sex Assigned at Date Recorded Female 03/07/2022 10:17 EDT documented as of this encounter Plan of Treatment Not on filedocumented as of this encounter Procedures Procedure Name Priority Date/Time Associated Diagnosis Comme nts COVID-19 TEST [facility] Today 09/01/2021 15:30 LAB PCR EDT COVID-19 TESTING Routine 09/01/2021 15:30 Results for this EDT procedure are i n the results section. documented in this encounter Results COVID-19 TEST [facility] LAB PCR (09/01/2021 15:30 EDT) Specimen Anatomical Location Collection Method Collection Time Received Time (Source) / Laterality / Volume Swab ENTIRE NASOPHARYNX 09/01/2021 15:30 09/02 / Unknown EDT 16:15 EDT Provider Outr Resulting Lab MICROBIOLOGY - GENERAL ORD ERABLES Performing Organization Address City/State/ZIP Code Phon e Number [facility] [address] [place] [address] SERVICES COVID-19 TESTING (09/01/2021 15:30 EDT) Analysis Performed At Patho logist Time Signature COVID-19 Negative Negative 09/03/2021 [facility] rt-PCR Result 14:44 EDT CENTER LABORATORY SERVICES Comment: This test [...] tions, patient history, and epidemiologi joyce information. This test was developed and its performa nce characteristics determined by [facility]. It has not been cleared or approved by the US Food and Drug Administration. FDA does not require this test to go through premarket FDA review. This test is used for clinical purposes. It should not be regarded as investigational or for research. This laboratory is certified under the Clinical Laboratory Improvement Amendm ents (CLIA) as qualified to perform high complexity clinical laboratory testing. This test is based on the [facility] COVID-19 E mergency Use Authorization (EUA) assay, with minor modification as defined by the FDA Performed on the [employer] 7 Pro RT-PCR System. Performing Lab [facility] Lab 09/03/2021 14:44 EDT [facility] SERVICES Specimen Anatomical Collection Method Collection Time Receive d Time (Source) Location / / Volume Laterality Swab 09/01/2021 15:30 09/02/2021 EDT 16:15 EDT Provider Outr Resulting Lab MICROBIOLOGY - GENERAL ORD ERABLES Performing Organization Address City/State/ZIP Code Phon e Number [facility] [address] [place] [address] SERVICES documented in this encounter Visit Diagnoses Not on filedocumented in this encounter Care Teams Casting Operator Helper Relationship Specialty Start Date End Date Malgorzata Orellana, LLOYD PCP - General 08/24/20 07/06/[address] [place] [phone] Odalys Escobar FNP PCP - General 07/07/22 [address] [place], [place] [phone] documented as of this encounter
--- OUTSIDE RECORDS SUMMARY | 2022-10-04 12:27 | XMS_ITS | Encounter Summary ---
:1975 Author Organization [facility] Address [address] [place] [address] Care Team Providers Name Role Phone Tania Lee MACHINE WEDGER Primary Care Provider Malgorzata Orellana MACHINE WEDGER Primary Care Provider Odalys EscobarP Primary Care Provider Encounter Details Date Type Department Care Team Description 05/22/2020 Lab Requisition [facility] Outr Resulting Lab, Pathology & Laboratory Provider [facility] [address] [place] [address] Social History Tobacco Use Types Packs/Day Years Used Date Smoking Tobacco: Never Assessed Sex Assigned at Date Recorded Female 03/07/2022 10:17 EDT documented as of this encounter Plan of Treatment Not on filedocumented as of this encounter Procedures Procedure Name Priority Date/Time Associated Comments Diagnosis LYME AB Routine 05/22/2020 12:10 Results for this EDT procedure are i n the results section. RHEUMATOID FACTOR Routine 05/22/2020 12:10 Result s for this EDT procedure are i n the results section. ANTI NUCLEAR AB Routine 05/22/2020 12:10 Results for this (PATRICK), IFA EDT procedure are i n the results section. documented in this encounter Results LYME AB (05/22/2020 12:10 EDT) athologist Signature Lyme Ab Negative Negative 05/25/2020 [facility] 12:25 EDT CENTER LABORATORY SERVICES Comment: New 3rd generation assay in use 04/22/20 20 Specimen Anatomical Collection Method Collection Time Receive d Time (Source) Location / / Volume Laterality Blood VENOUS BLOOD / 05/22/2020 12:10 0 Unknown EDT 16:01 EDT Provider Outr Resulting Lab IMMUNOLOGY AND SEROLOGY OR DERABLES Performing Organization Address City/[facility]/ZIP Code Phon e Number [facility] [address] [place] [address] SERVICES RHEUMATOID FACTOR (05/22/2020 12:10 EDT) P athologist Signature Rheumatoid <8.6 <12.0 05/22/2020 [facility] Factor IU/mL 16:19 EDT CENTER LABORATORY SERVICES Specimen Anatomical Collection Method Collection Time Receive d Time (Source) Location / / Volume Laterality Blood VENOUS BLOOD / 05/22/2020 12:10 0 Unknown EDT 16:01 EDT Provider Outr Resulting Lab CHEMISTRY & BLOOD GAS MURPHY PARRA Performing Organization Address [facility] Phon e Number [facility] [address] [place] [address] SERVICES ANTI NUCLEAR AB (PATRICK), IFA (05/22/2020 12:10 EDT) Patholo gist Method Time Signature PATRICK Interpretation Negative Negative 05/25/2020 [facility] 15:29 EDT [facility] SERVICES Specimen Anatomical Collection Method Collection Time Receive d Time (Source) Location / / Volume Laterality Blood VENOUS BLOOD / 05/22/2020 12:10 0 Unknown EDT 16:01 EDT Narrative [facility] SERVICES - 05/25/2020 15:29 EDT Results were obtained with the [employer]OVA NOV A Lite HEp-2 PATRICK Kit by indirect immunofluorescence. Provider Outr Resulting Lab IMMUNOLOGY AND SEROLOGY OR DERABLES Performing Organization Address City/[facility]/ZIP Code Phon e Number [facility] [address] [place] [address] SERVICES documented in this encounter Visit Diagnoses Not on filedocumented in this encounter Care Teams Business Project Manager Relationship Specialty Start Date End Date Tania Lee NP PCP - General 02/17/15 08/23/[address] [place] [address] [place] [address] Malgorzata Orellana NP PCP - General 08/24/20 07/06/22 [address] [place] [address] Odalys Escobar FNP PCP - General 07/07/22 [address] [place], [place] [phone] documented as of this encounter
--- OUTSIDE RECORDS SUMMARY | 2022-10-04 12:27 | XMS_ITS | Encounter Summary ---
:1975 Author Organization [facility] Address [address] [place] [address] Care Team Providers Name Role Phone Malgorzata Orellana ASSESSMENT ANALYST Primary Care Provider Odalys Escobar Primary Care Provider Encounter Details Date Type Department Care Team Description 01/31/2022 Lab Requisition [facility] Outr Resulting Lab, Pathology & Laboratory Provider [facility] [address], [place] [id number] Social History Tobacco Use Types Packs/Day Years Used Date Smoking Tobacco: Never Assessed Sex Assigned at Date Recorded Female 03/07/2022 10:17 EDT documented as of this encounter Plan of Treatment Not on filedocumented as of this encounter Procedures Procedure Name Priority Date/Time Associated Comments Diagnosis FECAL BACTERIAL Routine 01/31/2022 11:03 Results for this PATHOGENS BY PCR EDT procedure a re in the results section. GIARDIA AND Routine 01/31/2022 11:03 Results for this CRYPTOSPORIDIUM ANTIGENS EDT pro cedure are in the results section. documented in this encounter Results GIARDIA AND CRYPTOSPORIDIUM ANTIGENS (01/31/2022 11:03 EDT) Component Value Ref Range Test Analysis Performed Pathologis t Method Time At Signature Giardia and Cryptosporidium Cryptosporidium [facility] Cryptosporidium Antigen Neg and Antigen Neg and 2 9:41 CE NTER Giardia Antigen Giardia Antigen EDT LABORATO RY Neg Neg SERVICES Specimen Anatomical Collection Method Collection Time Receive d Time (Source) Location / / Volume Laterality Feces SPECIMEN FROM 01/31/2022 11:03 01/31/2022 RECTUM / Unknown EDT 21:07 EDT Provider Outr Resulting Lab MICROBIOLOGY - GENERAL ORD ERABLES Performing Organization Address City/State/ZIP Code Phon e Number [facility] [address] [place] [address] SERVICES FECAL BACTERIAL PATHOGENS BY PCR (01/31/2022 11:03 EDT) [facility] Method Time Signature Salmonella PCR Negative Negative 02/01/2022 [facility] MEDICAL 10:45 EDT CENTER LABORATORY SERVICES Shigella/Enteroin Negative Negative 02/01/2022 [facility] MEDICAL vasive E. coli 10:45 EDT CENTER LABORATORY SERVICES HN LAB Negative Negative 02/01/2022 [facility] MEDICAL CAMPYLOBACTER PCR 10:45 EDT CENTER LABORATORY SERVICES Shiga Toxin PCR Negative Negative 02/01/2022 [facility] MEDICAL 10:45 EDT CENTER LABORATORY SERVICES Specimen Anatomical Collection Method Collection Time Receive d Time (Source) Location / / Volume Laterality Feces SPECIMEN FROM 01/31/2022 11:03 01/31/2022 RECTUM / Unknown EDT 21:07 EDT Provider Outr Resulting Lab MICROBIOLOGY - GENERAL ORD ERABLES Performing Organization Address City/State/ZIP Code Phon e Number [facility] [address] [place] [address] SERVICES documented in this encounter Visit Diagnoses Not on filedocumented in this encounter Care Teams Manifest/Order Organizer Print Orders Relationship Specialty Start Date End Date Malgorzata Orellana, LLOYD PCP - General 08/24/20 07/06/22 [address] [place], [place] [phone] Odalys Escobar FNP PCP - General 07/07/22 [address] [place], [place] [address] documented as of this encounter
--- OUTSIDE RECORDS SUMMARY | 2022-10-04 12:27 | XMS_ITS | Encounter Summary ---
:1975 Author Organization [facility] Address [address] [place] [address] Care Team Providers Name Role Phone Malgorzata Orellana SLIP DUMPER Primary Care Provider Odalys Escobar Primary Care Provider Encounter Details Date Type Department Care Team Description 11/26/2021 Lab Requisition [facility] Outr Resulting Lab, Pathology & Laboratory Provider [facility] [address], [place] [address] Social History Tobacco Use Types Packs/Day Years Used Date Smoking Tobacco: Never Assessed Sex Assigned at Date Recorded Female 03/07/2022 10:17 EDT documented as of this encounter Plan of Treatment Not on filedocumented as of this encounter Procedures Procedure Name Priority Date/Time Associated Comments Diagnosis HIV 1/2 ANTIGEN AND Routine 11/26/2021 10:11 Resu lts for this ANTIBODY, 4TH EST procedure are in GENERATION the results section. documented in this encounter Results HIV 1/2 ANTIGEN AND ANTIBODY, 4TH GENERATION (11/26/2021 10:11 EST) [facility] Method Time Signature HIV 1 and 2 Negative Negative 11/27/[address] [facility] MEDICAL Antibody/p24 12:14 EST CENTER Antigen, 4th LABORATORY Generation SERVICES Comment: If acute HIV-1 infection is serge pected in a high risk patient, submit plasma specimen for HIV-1 RNA quantitation test . Specimen Anatomical Collection Method Collection Time Receive d Time (Source) Location / / Volume Laterality Blood VENOUS BLOOD / 11/26/2021 10:11 01/14/202 2 Unknown EST 21:35 EST Narrative [facility] SERVICES - 11/27/2021 12:14 EST Fourth Generation assay performed on the Siemens Centaur XPT. Provider Outr Resulting Lab IMMUNOLOGY AND SEROLOGY OR DERABLES Performing Organization Address City/State/ZIP Code Phon e Number [facility] [address] [place] [address] SERVICES documented in this encounter Visit Diagnoses Not on filedocumented in this encounter Care Teams Instructor [employer] Relationship Specialty Start Date End Date Malgorzata Orellana, LLOYD PCP - General 08/24/20 07/06/[address] [place] [phone] Odalys Escobar FNP PCP - General 07/07/22 [address] [place], [place] [phone] documented as of this encounter
--- OUTSIDE RECORDS SUMMARY | 2022-10-04 12:27 | XMS_ITS | Encounter Summary ---
:[address] [facility] Address [address] [place] [address] Care Team Providers Name Role Phone Malgorzata Orellana TELEVISION PICTURE TUBE REBUILDER Primary Care Provider Odalys Escobar Primary Care Provider Encounter Details Date Type Department Care Team Description 02/04/2021 Lab Requisition [facility] Medical Center Outr Resulting Lab, Pathology & Laboratory Provider [facility] [address] [id number] Social History Tobacco Use Types Packs/Day Years Used Date Smoking Tobacco: Never Assessed Sex Assigned at Date Recorded Female 03/07/2022 10:17 EDT documented as of this encounter Plan of Treatment Not on filedocumented as of this encounter Procedures Procedure Name Priority Date/Time Associated Comments Diagnosis CHLAMYDIA/N. Routine 02/04/2021 14:00 Results for this GONORRHOEAE AMPLIFIED EDT proced ure are in RNA the results section. documented in this encounter Results CHLAMYDIA/N. GONORRHOEAE AMPLIFIED RNA (02/04/2021 14:00 EDT) [facility] Method Time Signature Gonococcus Negative Negative 02/05/2021 [facility] Result 14:54 EDT CENTER LABORATORY SERVICES Chlamydia Negative Negative 02/05/2021 [facility] Result 14:54 EDT CENTER LABORATORY SERVICES Specimen Anatomical Collection Method Collection Time Receive d Time (Source) Location / / Volume Laterality Swab ENTIRE ENDOCERVIX 02/04/2021 14:00 2020 / Unknown EDT 20:51 EDT Provider Outr Resulting Lab MICROBIOLOGY - GENERAL ORD ERABLES Performing Organization Address City/State/ZIP Code Phon e Number [facility] [address] [place] [address] SERVICES documented in this encounter Visit Diagnoses Not on filedocumented in this encounter Care Teams Rotary Rig Engine Operator Relationship Specialty Start Date End Date Malgorzata Orellana, LLOYD PCP - General 08/24/20 07/06/[address] [place] [phone] Odalys Escobar FNP PCP - General 07/07/22 [address] [place], [place] [phone] documented as of this encounter
--- OUTSIDE RECORDS SUMMARY | 2022-10-04 12:27 | XMS_ITS | Encounter Summary ---
:1975 Author Organization [facility] Address [address] [place] [address] Care Team Providers Name Role Phone Odalys Escobar MOISES Primary Care Provider Encounter Details Date Type Department Care Team Description 08/30/2022 Lab Requisition [facility] Outr Resulting Lab, Pathology & Laboratory Provider [facility] [address] [place], [place] [id number] Social History Tobacco Use Types Packs/Day Years [...] Name Priority Date/Time Associated Diagnosis Comme nts T3 FREE Routine 08/29/2022 16:40 EDT Results for this procedure are i n the results section . HOMOCYSTEINE Routine 08/29/2022 16:40 EDT Results for this procedure are i n the results section . documented in this encounter Results T3 FREE (08/29/2022 16:40 EDT) P athologist Signature T3, Free 2.9 2.8 - 5.3 08/30/2022 [facility] MEDICAL pg/mL 17:25 EDT CENTER LABORATORY SERVICES Specimen Anatomical Collection Method Collection Time Receive d Time (Source) Location / / Volume Laterality Blood VENOUS BLOOD / 08/29/2022 16:40 2 Unknown EDT 16:50 EDT Provider Outr Resulting Lab CHEMISTRY & BLOOD GAS MURPHY DIANNEKAREN Performing Organization Address City/[facility]/ZIP Code Phon e Number [facility] [address] [place] [address] SERVICES (ABNORMAL) HOMOCYSTEINE (08/29/2022 16:40 EDT) athologist Signature Homocysteine 20.2 (H) 5.0 - 13.9 08/31/2022 [facility] umol/L 9:37 EDT CENTER LABORATORY SERVICES Comment: Results may be falsely elevated if sample is not collected on ice or is not removed from cells within 1 hour of abida ection. Specimen Anatomical Collection Method Collection Time Receive d Time (Source) Location / / Volume Laterality Blood VENOUS BLOOD / 08/29/2022 16:40 2 9:33 Unknown EDT EDT Narrative [facility] LABOR[facility]ORY SERVICES - 08/31/2022 9:37 EDT Reference range may not apply to non-fas ting samples. ??It is not recommended that EDTA plasma and serum from the same moses ent be used interchangeably. ??Serum concentrations have been observed to be up to 10% higher than EDTA plasma. Reference range may not apply to serum results. Provider Outr Resulting Lab CHEMISTRY & BLOOD GAS MURPHY PARRA Performing Organization Address City/[facility] Code Phon e Number [facility] [address] [place] [address] SERVICES documented in this encounter Visit Diagnoses Not on filedocumented in this encounter Care Teams Chain Sales Representative Relationship Specialty Start Date End Date Odalys Escobar FNP PCP - General 07/07/22 [address] [place] [address] documented as of this encounter
--- OUTSIDE RECORDS SUMMARY | 2022-10-04 12:27 | XMS_ITS | Clinical Summary ---
:1975 Author Organization [facility] Address [address] [place] [address] Care Team Providers Name Role Phone Odalys Escobar MOISES Primary Care Provider Allergies Active Allergy Reactions Severity Noted Date Comments Erythromycin 10/01/2018 Shellfish Containing Anaphylaxis High 01/28/2022 Per pt, she has received Products contrast dye in CT with no adverse reac tions Sulfa (Sulfonamide 07/07/2022 [facility] - Hiv es Antibiotics) Sulfur 10/01/2018 Tree Nut Rash 06/03/2019 Medications Medication Sig Dispensed Refills Start Date End Date Status ALPRAZolam (XANAX) 1 mg Take 1 mg by 0 Active tablet mouth daily. ALPRAZolam (XANAX) 0.5 Take 0.5 mg by 0 04/19/2022 Active mg tablet mouth daily. aspirin 325 mg tablet Take 325 mg by 0 04/06/2022 Active mouth daily. clopidogreL (PLAVIX) 75 Take 75 mg by 0 04/06/2022 Active mg tablet mouth daily. difluprednate 0.05 % INSTILL ONE DROP 0 05/06/2022 Active drops INTO RIGHT EYE FOUR TIMES A DAY methylphenidate HCl Take 20 mg by 0 12/16/2021 Active (RITALIN;METHYLIN) 20 mouth daily. mg tablet methylphenidate HCl Take 20 mg by 0 06/11/2022 Active (RITALIN;METHYLIN) 20 mouth 3 times mg tablet daily. methylphenidate HCl Take 10 mg by 0 06/14/2022 Active (RITALIN;METHYLIN) 10 mouth daily. mg tablet OLANZapine (ZYPREXA) 10 Take 10 mg by 0 06/21/2022 Active mg tablet mouth at bedtime. pantoprazole (PROTONIX) TAKE 1 TABLET 30 0 2 Active 40 mg tablet MINUTES BEFORE BREAKFAST AND EVENING MEAL pregabalin (LYRICA) 150 Take by mouth 2 0 06/15/2022 Active mg capsule times daily. topiramate (TOPAMAX) Take 100 mg by 0 06/10/2022 Active 100 mg tablet mouth at bedtime. vilazodone (VIIBRYD) 40 Take 40 mg by 0 06/29/2022 Active mg tablet mouth daily. Encounters Date Type Specialty Care Team Description 08/30/2022 Lab Requisition Clinical Laboratory Outr Resulting Lab, Provider 07/25/2022 Orders Only Endocrinology Ros Cornelius Low TSH oanh De La Cruz MD PhD (Primary Dx) 07/08/2022 Telephone Endocrinology Ros Cornelius Abnormal Lab ; Arabella De La Cruz MD PhD 07/07/2022 Ancillary Endocrinology Subclinical Procedure hyperthyroidism 07/07/2022 Office Visit Endocrinology Ros Cornelius MD PhD hyperthyroidism (Primary Dx) from Last 3 Months Medical History Medical History Date Comments Thyroid disease Social History Tobacco Use Types Packs/Day Years Used Date Smoking Tobacco: Every Day Smokeless Tobacco: Current Sex Assigned at Date Recorded Female 03/07/2022 10:17 EDT Obstetrics History Last Filed Vital Signs Vital Sign Reading Time Taken Comments Blood Pressure 115/71 07/07/2022 0928 EDT Pulse 77 07/07/2022 0928 EDT Temperature - - Respiratory Rate - - Oxygen Saturation - - Inhaled Oxygen Concentration - - Weight 68 kg (150 lb) 07/07/2022 0928 EDT Height 151 cm (4' 11.45) 07/07/2022 0928 EDT Body Mass Index 29.84 07/07/2022 0928 EDT Plan of Treatment Health Maintenance Due Date Last Done Comments Pneumococcal Immunization (1 - PCV) 1982 COVID-19 Vaccine (3 - Booster for Moderna 06/08/20212020, 03/16/2021 series) Hepatitis C Screen Completed 11/26/2021 Procedures Procedure Name Priority Date/Time Associated Diagnosis Comme nts POC ENDOCRINE US Routine 09/01/2022 9:26 Subclinical Results for this THYROID EDT hyperthyroidism procedure ar chrystal in the results section. T3 FREE Routine 08/29/2022 16:40 Results for this EDT procedure are i n the results section. HOMOCYSTEINE Routine 08/29/2022 16:40 Results for this EDT procedure are i n the results section. ANTI THYROGLOBULIN Routine 07/07/2022 10:30 Subclinical Resul ts for this EDT hyperthyroidism procedure ar e in the results section. THYROPEROXIDASE Routine 07/07/2022 10:30 Subclinical Results for this ANTIBODY EDT hyperthyroidism procedure ar e in the results section. THYROTROPIN RECEPTOR Routine 07/07/2022 10:30 Subclinical Res [...] procedure ar e in the results section. from Last 3 Months Results POC ENDOCRINE US THYROID (09/01/2022 9:26 EDT) Specimen (Source) Anatomical Location Collection Method / Collectio n Time Received Time / Laterality Volume Narrative 09/01/2022 9:26 EDT This is a non-reportable exam. Ros Cornelius MD PhD IMG US POC ORDERABLES T3 FREE (08/29/2022 16:40 EDT) P athologist Signature T3, Free 2.9 2.8 - 5.3 08/30/2022 [facility] MED[facility] pg/mL 17:25 EDT CENTER LABORATORY SERVICES Specimen Anatomical Collection Method Collection Time Receive d Time (Source) Location / / Volume Laterality Blood VENOUS BLOOD / 08/29/2022 16:40 2 Unknown EDT 16:50 EDT Provider Outr Resulting Lab CHEMISTRY & BLOOD GAS MURPHY PARRA Performing Organization Address City/State/ZIP Code Phon e Number [facility] [address] [place] [address] SERVICES (ABNORMAL) HOMOCYSTEINE (08/29/2022 16:40 EDT) P athologist Signature Homocysteine 20.2 (H) 5.0 - 13.9 08/31/2022 [facility] umol/L 9:37 EDT CENTER LABORATORY SERVICES Comment: Results may be falsely elevated if sample is not collected on ice or is not removed from cells within 1 hour of abida ection. Specimen Anatomical Collection Method Collection Time Receive d Time (Source) Location / / Volume Laterality Blood VENOUS BLOOD / 08/29/2022 16:40 9:33 Unknown EDT EDT Narrative [facility] SERVICES - 08/31/2022 9:37 EDT Reference [...] Organization Address City/State/ZIP Code Phon e Number [facility] [address] [place] [address] SERVICES THYROTROPIN RECEPTOR ANTIBODY (07/07/2022 10:30 EDT) [facility] Method Time Signature Thyrotropin <1.10 0.00 - 07/08/2022 [facility] Receptor Ab, S 1.75 IU/L 16:51 EDT LABORATORIES Comment: ADDITIONAL INFORMATIO N At a decision limit of 1.75 IU/L, this a ssay has 97% sensitivity and 99% specificity for detection of Graves' disease. In healthy individuals and in patients with thyroid disease without diagnosis of Graves' disease, th e upper limit of anti-TSHR values are 1.22 IU/L and 1.58 IU/L, respectively (97.5th percenti les). Test Performed by: [facility] [address] [id number] Perinatal Director: Kodak Collins M.D. Ph. D.; CLIA# [id number] Specimen Anatomical Collection Method / Collection Time Recei yoav Time (Source) Location / Volume Laterality Blood VENOUS BLOOD / Venipuncture / 07/07/2022 10:30 022 Unknown Unknown EDT 10:31 EDT Ros Cornelius MD PhD CHEMISTRY & BLOOD GAS ORDERA BLES Performing Organization Address City/State/ZIP Code Phon e Number [facility] [address] [place] [address] THYROPEROXIDASE ANTIBODY (07/07/2022 10:30 EDT) Patholo gist Method Time Signature Thyroperoxidase Ab 29 <=60 U/mL 07/07/2022 [facility] 16:57 EDT CENTER LABORATORY SERVICES Specimen Anatomical Collection Method / Collection Time Recei yoav Time (Source) Location / Volume Laterality Blood VENOUS BLOOD / Venipuncture / 07/07/2022 10:30 022 Unknown Unknown EDT 10:31 EDT Ros Cornelius MD PhD CHEMISTRY & BLOOD GAS ORDERA BLES Performing Organization Address City/State/ZIP Code Phon e Number [facility] [address] [place] [address] SERVICES ANTI THYROGLOBULIN (07/07/2022 10:30 EDT) P athologist Signature Anti-Thyroglob <15 <=60 U/mL 07/07/2022 [facility] ulin 16:54 EDT CENTER LABORATORY SERVICES Specimen Anatomical Collection Method / Collection Time Recei yoav Time (Source) Location / Volume Laterality Blood VENOUS BLOOD / Venipuncture / 07/07/2022 10:30 022 Unknown Unknown EDT 10:31 EDT Ros Cornelius MD PhD CHEMISTRY & BLOOD GAS ORDERA BLES Performing Organization Address City/State/ZIP Code Phon e Number [facility] [address] [place] [address] SERVICES T3, TOTAL (07/07/2022 10:30 EDT) P athologist Signature T3, Total 116 97 - 169 07/07/2022 [facility] ng/dL 15:11 EDT CENTER LABORATORY SERVICES Specimen Anatomical Collection Method / Collection Time Recei yoav Time (Source) Location / Volume Laterality Blood VENOUS BLOOD / Venipuncture / 07/07/2022 10:30 022 Unknown Unknown EDT 10:31 EDT Ros Cornelius MD PhD CHEMISTRY & BLOOD GAS ORDERA BLES Performing Organization Address City/State/ZIP Code Phon e Number [facility] [address] [place] [address] SERVICES (ABNORMAL) TSH (07/07/2022 10:30 EDT) athologist Signature TSH 0.10 (L) 0.47 - 4.68 07/07/2022 [facility] mIU/L 15:11 EDT CENTER LABORATORY SERVICES Specimen Anatomical Collection Method / Collection Time Recei yoav Time (Source) Location / Volume Laterality Blood VENOUS BLOOD / Venipuncture / 07/07/2022 10:30 022 Unknown Unknown EDT 10:31 EDT Narrative [facility] SERVICES - 07/07/2022 15:11 EDT The results of this assay can be falsely lowered due to the consumption of Biotin. Ros Cornelius MD PhD CHEMISTRY & BLOOD GAS ORDERA BLES Performing Organization Address [facility]/ZIP Code Phon e Number [facility] [address] [place] [address] SERVICES T4 FREE (07/07/2022 10:30 EDT) athologist Signature T4, Free 1.5 0.8 - 2.2 07/07/2022 [facility] ng/dL 14:57 EDT CENTER LABORATORY SERVICES Specimen Anatomical Collection Method / Collection Time Recei yoav Time (Source) Location / Volume Laterality Blood VENOUS BLOOD / Venipuncture / 07/07/2022 10:30 022 Unknown Unknown EDT 10:31 EDT Ros Cornelius MD PhD CHEMISTRY & BLOOD GAS ORDERA BLES Performing Organization Address [facility]/ZIP Code Phon e Number [facility] [address] [place] [address] SERVICES from Last 3 Months Insurance Payer Benefit Plan / Subscriber ID Effective Dates Phone Addre ss Type Group [employer] [place] [employer] [id number] 2019-Present [address] [employer] [place] [phone] Franchesca Dickson Personal/Family Self 1975 [address] (Home) [place] [address] Franchesca Dickson Personal/Family Self 1975 [address] (Home) [facility] [phone] Franchesca Dickson Personal/Family Self 1975 [address] (Home) [facility] [address] Franchesca Dickson Personal/Family Self 1975 [address] (Home) [facility], [facility] [phone] Franchesca Dickson Personal/Family Self 1975 [address] (Home) [facility], [facility] [phone] Franchesca Dickson Personal/Family Self 1975 [address] (Home) [facility] [address] Franchesca Dickson Personal/Family Self 1975 [address] (Home) [facility], [facility] [phone] Care Teams Internet And E Business Project Manager Relationship Specialty Start Date End Date Odalys Escobar FNP PCP - General 07/07/22 [place] [address]
--- OUTSIDE RECORDS SUMMARY | 2022-10-04 12:27 | XMS_ITS | Encounter Summary ---
:1975 Author Organization [facility] Address [address] [place] [address] Care Team Providers Name Role Phone Tania Lee APPLICATION INTEGRATOR Primary Care Provider Malgorzata Orellana APPLICATION INTEGRATOR Primary Care Provider Odalys EscobarP Primary Care Provider Encounter Details Date Type Department Care Team Description 06/29/2020 Lab Requisition [facility] Outr Resulting Lab, Pathology & Laboratory Provider [facility] [address] [place] [address] Social History Tobacco Use Types Packs/Day Years Used Date Smoking Tobacco: Never Assessed Sex Assigned at Date Recorded Female 03/07/2022 10:17 EDT documented as of this encounter Plan of Treatment Not on filedocumented as of this encounter Procedures Procedure Name Priority Date/Time Associated Diagnosis Comme nts FECAL BACTERIAL Routine 06/29/2020 8:32 EDT Resul ts for this PATHOGENS BY PCR procedure a re in the results section. documented in this encounter Results FECAL BACTERIAL PATHOGENS BY PCR (06/29/2020 8:32 EDT) [facility] Method Time Signature Salmonella PCR Negative Negative 06/30/2020 [facility] MED[facility] 10:41 EDT CENTER LABORATORY SERVICES Shigella/Enteroin Negative Negative 06/30/2020 [facility] vasive E. coli 10:41 EDT CENTER LABORATORY SERVICES HN LAB Negative Negative 06/30/2020 [facility] CAMPYLOBACTER PCR 10:41 EDT CENTER LABORATORY SERVICES Shiga Toxin PCR Negative Negative 06/30/2020 [facility] 10:41 EDT CENTER LABORATORY SERVICES Specimen Anatomical Collection Method Collection Time Receive d Time (Source) Location / / Volume Laterality Feces SPECIMEN FROM Stool Collect / 06/29/2020 8:32 06/29/20 20 [facility] / Unknown Unknown EDT 21:50 EDT Provider Outr Resulting Lab MICROBIOLOGY - GENERAL ORD ERABLES Performing Organization Address City/State/ZIP Code Phon e Number [facility] [address] [place] [address] SERVICES documented in this encounter Visit Diagnoses Not on filedocumented in this encounter Care Teams Corner Block Cutter Relationship Specialty Start Date End Date Tania Lee, LLOYD PCP - General 02/17/15 08/23/[address] [place] [address] [facility] [place] [phone] Malgorzata Orellana NP PCP - General 08/24/20 07/06/22 [address] [place], [place] [phone] Odalys Escobar FNP PCP - General 07/07/22 [address] [place], [place] [phone] documented as of this encounter
--- OUTSIDE RECORDS SUMMARY | 2022-10-04 12:27 | XMS_ITS | Encounter Summary ---
:1975 Author Organization [facility] Address [address] [place] [address] Care Team Providers Name Role Phone Esteban Malgorzata Yeung SENIOR PRODUCT DEVELOPMENT SCIENTIST Primary Care Provider Odalys Escobar Primary Care Provider Encounter Details Date Type Department Care Team Description 08/28/[address] [facility] Outr Resulting Lab, Pathology & Laboratory Provider [facility] [address] [id number] Social History Tobacco Use Types Packs/Day Years Used Date Smoking Tobacco: Never Assessed Sex Assigned at Date Recorded Female 03/07/2022 10:17 EDT documented as of this encounter Plan of Treatment Not on filedocumented as of this encounter Procedures Procedure Name Priority Date/Time Associated Diagnosis Comme nts COVID-19 TEST [facility] Today 08/27/2021 18:00 LAB PCR EDT COVID-19 TESTING Routine 08/27/2021 18:00 Results for this EDT procedure are i n the results section. documented in this encounter Results COVID-19 TEST [facility] LAB PCR (08/27/2021 18:00 EDT) Specimen Anatomical Location Collection Method Collection Time Received Time (Source) / Laterality / Volume Swab ENTIRE NASOPHARYNX 08/27/2021 18:00 08/28 / Unknown EDT 22:13 EDT Provider Outr Resulting Lab MICROBIOLOGY - GENERAL ORD ERABLES Performing Organization Address City/State/ZIP Code Phon e Number [facility] [address] [place] [address] SERVICES COVID-19 TESTING (08/27/2021 18:00 EDT) Analysis [facility] Time Signature COVID-19 Negative Negative 08/29/2021 [facility] rt-PCR Result 13:59 EDT CENTER LABORATORY SERVICES Comment: This test [...] using the lew SA RS-CoV-2 assay ([employer] on the Lew 6800 System Performing Lab [place] [address] [facility] 08/29/2021 13:59 E DT [facility] Lab LABORATORY SERVICES Specimen Anatomical Collection Method Collection Time Receive d Time (Source) Location / / Volume Laterality Swab 08/27/2021 18:00 08/28/2021 EDT 22:13 EDT Provider Outr Resulting Lab MICROBIOLOGY - GENERAL ORD ERABLES Performing Organization Address City/State/ZIP Code Phon e Number [facility] [address] [place] [address] SERVICES documented in this encounter Visit Diagnoses Not on filedocumented in this encounter Care Teams Site Safety Representative Relationship Specialty Start Date End Date Malgorzata Orellana NP PCP - General 08/24/20 07/06/22 [address] [place] [address] Odalys Escobar FNP PCP - General 07/07/22 [facility] [place] [address] documented as of this encounter
--- OUTSIDE RECORDS SUMMARY | 2022-10-04 12:27 | XMS_ITS | Encounter Summary ---
:1975 Author Organization [facility] Address [address] [place] [address] Care Team Providers Name Role Phone Malgorzata Orellana CLERK GUIDE Primary Care Provider Odalys Escobar Primary Care Provider Encounter Details Date Type Department Care Team Description 11/26/2021 Lab Requisition [facility] Outr Resulting Lab, Pathology & Laboratory Provider [facility] [address] [id number] Social History Tobacco Use Types Packs/Day Years Used Date Smoking Tobacco: Never Assessed Sex Assigned at Date Recorded Female 03/07/2022 10:17 EDT documented as of this encounter Plan of Treatment Not on filedocumented as of this encounter Procedures Procedure Name Priority Date/Time Associated Diagnosis Comme nts HEPATITIS C AB W Routine 11/26/2021 10:11 Results for this REFLEX TO HCV RNA EST procedure are in BY PCR the results section. documented in this encounter Results HEPATITIS C AB W REFLEX TO HCV RNA BY PCR (11/26/2021 10:11 EST) Analysis Performed At Patho logist Time Signature Hep C Antibody Negative Negative 11/29/2021 [facility] 10:57 EST CENTER LABORATORY SERVICES Specimen Anatomical Collection Method Collection Time Receive d Time (Source) Location / / Volume Laterality Blood VENOUS BLOOD / 11/26/2021 10:11 Unknown EST 21:35 EST Provider Outr Resulting Lab CHEMISTRY & BLOOD GAS MURPHY PARRA Performing Organization Address City/State/ZIP Code Phon e Number [facility] [address] [place] [address] SERVICES documented in this encounter Visit Diagnoses Not on filedocumented in this encounter Care Teams Pipeline Engineer Relationship Specialty Start Date End Date Malgorzata Orellana NP PCP - General 08/24/20 07/06/22 [address] [place], [place] [phone] Odalys Escobar FNP PCP - General 07/07/22 [address] [place] [phone] documented as of this encounter
--- OUTSIDE RECORDS SUMMARY | 2022-10-04 12:27 | XMS_ITS | Encounter Summary ---
:1975 Author Organization [facility] Address [address] [place] [address] Care Team Providers Name Role Phone Unavailable Primary Care Provider Unavailable Encounter Details Date Type Department Care Team Description 06/17/2014 Results Only [facility] Tania Collado NP [phone] [facility] [place] [address] (Wo rk) Social History Tobacco Use Types Packs/Day Years Used Date Smoking Tobacco: Never Assessed Sex Assigned at Date Recorded Female 03/07/2022 10:17 EDT documented as of this encounter Plan of Treatment Not on filedocumented as of this encounter Procedures Procedure Name Priority Date/Time Associated Diagnosis Comme nts PAP TEST- RESULT Routine 06/17/2014 0:00 EDT Resu lts for this ONLY procedure are i n the results section. documented in this encounter Results PAP TEST- RESULT ONLY (06/17/2014 0:00 EDT) Component Value Ref Test Analysis Performed At [facility] Method Time Signature Pathology CYTOPATHOLOGY REPORT [facility] Report: [facility] Reports generated via electronic interface contain original data; however they are lacking the format of the original report. Caution should be taken when reading/interpreting unformatte d reports. Name: ? ROBERT BACH ? Accession #: ? [id number] ? : ? 1975 (Age: 38) ??F ?Collect Da te: ? 06/17/2014 ? Location: ? [facility] ? Receive Date: ? 06/18/2014 ? Provider: TANIA COLLADO APPLICATION ARCHITECT MANAGER Copy to: ? Final Report SPECIMEN ADEQUACY ? Satisfactory for Evaluation - transformation zone component present GENERAL CATEGORIZATION ? Negative for Intraepithelial Lesion or Malignancy ?? Last Menstrual Period: 06/09/14 Specimen/Source: ??Pap Test, Cervix/Endocervix, ThinPr ep Imaging System with manual evaluation Document reviewed and electronically signed by: ? DAVID Lyons(ASCP) ? Report ??Date: 06/23/2014 14:22 HPV with Pap Test ? Date Ordered: ? 06/23/2014 ? Status: ?? Katt d Out ?Date Complete: ? 06/24/2014 ? By: ??System Interface ? Date Reported: ? 06/24/2014 ? Interpretation RESULT: Negative for HPV. No E6 or E7 mRNA is detected from HPV types 16,18,31,33,35, 39,45,51,52,56,58,59,66, and 68 by dough puncher mediated amplification. Comments Document reviewed and electronically signed by: ? System Interface ? Report date: 06/24/2014 By the signature above, the attending physician certifies th at he/she has personally conducted a gross and/or microscopic examin ation of the described specimens and rendered or confirmed the above diagnosis. End of Report Specimen (Source) Anatomical Location Collection Method / Collectio n Time Received Time / Laterality Volume 06/17/2014 06/18/2014 Tania Collado NP PATHOLOGY ORDERABLES Performing Organization Address City/State/ZIP Code Phon e Number [facility] [address] [place] [address] SERVICES [facility] [address] [phone] documented in this encounter Visit Diagnoses Not on filedocumented in this encounter
--- OUTSIDE RECORDS SUMMARY | 2022-10-04 12:27 | XMS_ITS | Encounter Summary ---
:1975 Author Organization [facility] Address [address] [place] [address] Care Team Providers Name Role Phone Tania Lee WAREHOUSE RECEIVING SUPERVISOR Primary Care Provider Encounter Details Date Type Department Care Team Description 03/26/2019 Hospital Encounter [facility] Rukhsana Unknown, Provider, [facility] [address] [facility] [phone] [place] [address] (Work) [phone] Social History Tobacco Use Types Packs/Day Years Used Date Smoking Tobacco: Never Assessed Sex Assigned at Date Recorded Female 03/07/2022 10:17 EDT documented as of this encounter Discharge Disposition Disposition Code Departure Means Destination Home or Self Shelter documented in this encounter Plan of Treatment Not on filedocumented as of this encounter Visit Diagnoses Not on filedocumented in this encounter Care Teams Before School Babysitter Relationship Specialty Start Date End Date Tania Lee NP PCP - General 02/17/15 08/23/[address] [place] [address] [place] [phone] documented as of this encounter
--- OUTSIDE RECORDS SUMMARY | 2022-10-04 12:28 | XMS_ITS | Encounter Summary ---
:1975 Author Organization [facility] Address [address] [place] [address] Care Team Providers Name Role Phone Unavailable Primary Care Provider Unavailable Encounter Details Date Type Department Care Team Description 05/10/2000 Results Only [facility] Winsome Peter od, [employer] FEEDER conversion [address] [place] [phone] (Wo rk) Social History Tobacco Use Types Packs/Day Years Used Date Smoking Tobacco: Never Assessed Sex Assigned at Date Recorded Female 03/07/2022 10:17 EDT documented as of this encounter Plan of Treatment Not on filedocumented as of this encounter Procedures Procedure Name Priority Date/Time Associated Diagnosis Comme nts CYTOPATHOLOGY Routine 05/10/2000 0:00 EDT Results for this procedure are i n the results section . documented in this encounter Results CYTOPATHOLOGY (05/10/2000 0:00 EDT) Component Value Ref Test Analysis Performed At [facility] Method Time [facility] Pathology CYTOPATHOLOGY REPORT [facility] Report: [facility] Reports generated via electronic interface contain original data; however they are lacking the format of the original report. Caution should be taken when reading/interpreting unformatte d reports. Name: ? ROBERT BACH ? Accession #: ? [id number] : ? 1975 (Age: 24) ??F ?Collect Date: ? 05/10/2000 Location: ? [facility] ? Receive Date: ? 05/12/2000 Provider: ?WINSOME BYNUM [employer]ER Copy to: ? Specimen/Source: ?ThinPrep Pap Test, Cervix/Endoce rvix Last Menstrual Period: ? Menstrual/ Status: ? SPECIMEN ADEQUACY ? Satisfactory for evaluation. GENERAL CATEGORIZATION ? Within Normal Limits ? Document reviewed and electronically signed by: ? Emma Thomas, ??SCT(ASCP) ? Report Date: ??05/15/2000 15:12 End of Report Specimen (Source) Anatomical Location Collection Method / Collectio n Time Received Time / Laterality Volume 05/10/2000 05/12/2000 Winsome Bynum [employer]ER PATHOLOGY ORDERABLES Performing Organization Address City/State/ZIP Code Phon e Number [facility] [address] [place] [address] SERVICES [facility] [address] [place] [address] documented in this encounter Visit Diagnoses Not on filedocumented in this encounter
--- OUTSIDE RECORDS SUMMARY | 2022-10-04 12:28 | XMS_ITS | Encounter Summary ---
:1975 Author Organization [facility] Address [address] [place] [address] Care Team Providers Name Role Phone Unavailable Primary Care Provider Unavailable Encounter Details Date Type Department Care Team Description 01/24/2001 Results Only [facility] - Kodak Anderson MD conversion [address] [place] [address] Social History Tobacco Use Types Packs/Day Years Used Date Smoking Tobacco: Never Assessed Sex Assigned at Date Recorded Female 03/07/2022 10:17 EDT documented as of this encounter Plan of Treatment Not on filedocumented as of this encounter Procedures Procedure Name Priority Date/Time Associated Diagnosis Comme [facility] CYTOPATHOLOGY Routine 01/24/2001 0:00 EST Results for this procedure are i n the results section . documented in this encounter Results CYTOPATHOLOGY (01/24/2001 0:00 EST) Component Value Ref Test Analysis Performed At [facility] Method Time [facility] Pathology CYTOPATHOLOGY REPORT [facility] Report: [facility] Reports generated via electronic interface contain original data; however they are lacking the format of the original report. Caution should be taken when reading/interpreting unformatte d reports. Name: ? ROBERT BACH ? Accession #: ? [id number] : ? 1975 (Age: 25) ??F ?Collect Date: ? 01/24/2001 Location: ? [facility] ? Receive Date: ? 01/25/2001 Provider: ?KODAK GARCIA MD Copy to: ? Specimen/Source: ?ThinPrep Pap Test, Cervix/Endoce rvix Last Menstrual Period: ? February or March 2000 Menstrual/ Status: ? Post Hormonal/Contraceptive Status: ? Orthotricyclen ? SPECIMEN ADEQUACY ? Satisfactory for evaluation. GENERAL CATEGORIZATION ? Within Normal Limits ? Document reviewed and electronically signed by: ? Emma Thomas, ??SCT(ASCP) ? Report Date: ??01/26/2001 11:35 End of Report Specimen (Source) Anatomical Location Collection Method / Collectio n Time Received Time / Laterality Volume 01/24/2001 01/25/2001 Kodak Garcia MD PATHOLOGY ORDERABLES Performing Organization Address City/State/ZIP Code Phon e Number [facility] [address] [place] [address] SERVICES [facility] [address] [place] [address] documented in this encounter Visit Diagnoses Not on filedocumented in this encounter
--- OUTSIDE RECORDS SUMMARY | 2022-10-04 12:28 | XMS_ITS | Encounter Summary ---
:1975 Author Organization [facility] Address [address] [place] [address] Care Team Providers Name Role Phone Tania Lee STAGING TECHNICIAN Primary Care Provider Malgorzata Orellana STAGING TECHNICIAN Primary Care Provider Odalys EscobarP Primary Care Provider Encounter Details Date Type Department Care Team Description 04/30/2002 Hospital Encounter [facility] Wojciech Garcia MD [address] [place], [place] [phone] Other Unknown, ProviderMD [address] [place] [address] Social History Tobacco Use Types Packs/Day Years Used Date Smoking Tobacco: Every Day Smokeless Tobacco: Current Sex Assigned at Date Recorded Female 03/07/2022 10:17 EDT documented as of this encounter Plan of Treatment Not on filedocumented as of this encounter Procedures Procedure Name Priority Date/Time Associated Diagnosis Comme nts SURGICAL PATHOLOGY Routine 04/30/2002 0:00 EDT Re sults for this procedure are i n the results section. documented in this encounter Results SURGICAL PATHOLOGY (04/30/2002 0:00 EDT) Component Value Ref Test Analysis Performed At [facility] Method Time Signature Pathology SURGICAL PATHOLOGY REPORT DAHIANA HARRELL Report: Reports generated via electronic interface contain huyena l data; [facility] however they are lacking the format of the original report. Caution should be taken when reading/interpreting unformatte d reports. Name: ? YESSI, ROBERT ? Accession #: ? [id number] ? : ? 1975 (Age: 26) ??F ? Collect Date: ? 04/30/2002 ? Location: ? [facility] ? Receive Date: ? 04/30/2002 ? Provider: DARI GARCIA MD Copy to: GABRIEL OLIVERA MD ? Final Pathologic Diagnosis: A. ?Endometrium, curettage: 1. ?Mid to late secretory endometrium. 2. ?No evidence of chronic endometritis, polyp, hyperplasia, or malignancy. B. ?Ovary, left, cyst, resection: 1. ?Hemorrhagic corpus luteum. 2. ?Fragments of ovarian cortex. C. ?Ovary, right, mass, resection: 1. ?Hemorrhagic corpus luteal cyst. 2. ?Multiple follicle cysts. 3. ?Portion of benign fallopian tube. Comment: ? Specimen (B) has been reviewed by Dr. Joey Garcia. ??(Dr. Mueller)/ Document reviewed and electronically signed by: Tim Mueller MD Report ??Date: 05/07/2002 16:09 By the signature above, the attending physician certifies th at he/she has personally conducted a gross and/or microscopic examin ation of the described specimens and rendered or confirmed the above diagnosis. Specimen(s) Received: A. ?Uterine curettings ??endometrial (#1) B. ?Left ovarian cyst (#2) C. ?Right ovary/mass (#3) Clinical History: ? Pelvic pain, ovarian cyst; hemoperitoneum Gross Description: ? Received in formalin labelled Yessi and #1 endome trial uterine curettings is 1.0 x 1.0 x 0 .3 cm of prieto-red hemorrhagic soft tissue fragments. The specimen is entirely submitted as (A). Received in formalin labelled Yessi and left ovarian c yst are multiple preito-white to red fibromembra nous irregular soft tissue fragments measuring 3.0 x 2.0 x 0.5 cm in aggregate. ??No discrete nodules nor excrescences are grossly identified. ??The specimen is entirely submitted as (B1) thr dashawngh (B3). Received in formalin maria fernanda d Yessi and right ovary/mass is the product of a right salpingo-oophorectomy which is received previously i ncised, has a combined weight of 23.71 grams, and a moderate a mount of attached hemorrhagic material. ??The prieto-white mu ltilobulated ovary measures 4.3 x 2.5 x 2.5 cm. ??Upon sectioning, there is a hemor rhagic 2.0 x 1.0 x 1.0 cm cyst-like structure. ??The remaining cut surfaces are predominantly prieto-white parench yma with multiple eccentric thin walled cyst-like structures exuding a clear yellow fluid and range from 0.2 to 0.4 cm in greatest dim ension. ??The cystic structures occupy approximately 30% of the cut surfaces. ? ?The attached fimbriated end fallopian tube measures 4.6 cm in kaela th, 0.4 cm in diameter, and upon sectioning, the cut surfaces are prieto-white with a central pinpoint lumen. ??No excrescences are grossly identified. ??Cop Winder sections are submitted as follows. BLOCK REEVES C1-C3 ?Hemorrhagic cystic structure C4-C5 ?Unremarkable ovary C6 ?Cop Winder fallopian tube (Tanvi Blanco)/lucina End of Report Specimen (Source) Anatomical Collection Method Collection Time Re ceived Time Location / / Volume Laterality 04/30/2002 04/30/2002 15:0 6 EDT Dari Garcia MD PATHOLOGY ORDERABLES Performing Organization Address City/State/ZIP Code Phon e Number [facility] [address] [place] [address] SERVICES [facility] [address] [place] [address] documented in this encounter Visit Diagnoses Not on filedocumented in this encounter Care Teams Newspaper Delivery Driver Relationship Specialty Start Date End Date Tania Lee, LLOYD PCP - General 02/17/15 08/23/[address] [place] [address] [place] [phone] Malgorzata Orellana NP PCP - General 08/24/20 07/06/[address] [place] [phone] Odalys Escobar FNP PCP - General 07/07/22 [address] [place], [place] [phone] documented as of this encounter
[2022-10-04 12:32] LABS: Absolute Basophil Count 0.03 10^3/uL (0.0-0.2); Absolute Neutrophil Count 6.66 10^3/uL (1.2-6.7)
== END 2022-10-04 12:19 | disposition home or self-care (01) ==
LOC: LBO 12:20
PROVIDERS: PCP Nurse Practitioner Family; Visit Provider Psychiatry & Neurology Psychiatry
DX: F32.2 Major depressive disorder, single episode, severe without psychotic features (principal); F43.10 Post-traumatic stress disorder, unspecified; Z79.899 Other long term (current) drug therapy
CPT/HCPCS: 36415; 85025

== ENCOUNTER 2022-10-04 17:39 | Outpatient (REF) | payer OTHER, SELFPAY ==
[2022-10-04 21:23] LABS: Hemoglobin A1C 5.1 % (<5.7)
[2022-10-04 21:36] LABS: TSH (W/Ref FT4) 0.24 uIU/mL (0.36-3.74)
[2022-10-04 21:55] LABS: FREE T4 0.96 ng/dL (0.76-1.46)
[2022-10-04 22:31] LABS: Vitamin D 25 Total 27.9 ng/mL (30-100)
== END 2022-10-04 17:40 | disposition home or self-care (01) ==
LOC: NCHCN 17:39
PROVIDERS: PCP Nurse Practitioner Family; Visit Provider Family Medicine
DX: E55.9 Vitamin D deficiency, unspecified (principal); E05.90 Thyrotoxicosis, unspecified without thyrotoxic crisis or storm; R73.9 Hyperglycemia, unspecified
CPT/HCPCS: 82306; 83036; 84439; 84443

== ENCOUNTER 2022-10-07 01:13 | Outpatient (CLI) | payer OTHER, SELFPAY ==
[2022-10-07 16:21] LABS: Abs Immature Grans 0.04 10^3/uL (0.0-0.06); Absolute Basophil Count 0.05 10^3/uL (0.0-0.2); Absolute Eosinophil Count 0.25 10^3/uL (0.0-0.7); Absolute Lymphocyte Count 3.31 10^3/uL (1.2-3.4); Absolute Monocyte Count 0.97 10^3/uL (0.1-0.8); Absolute Neutrophil Count 8.79 10^3/uL (1.2-6.7); Basophils % 0.4; Eosinophils % 1.9; HCT 42.8 % (36.0-46.0); HGB 14.1 g/dL (11.2-15.7); Immature Grans % 0.3; Lymphocytes % 24.7; MCH 31.5 pg (27.0-33.0); MCHC 32.9 % (32.0-36.0); MCV 96 fL (80-95); MPV 9.2 fL (8.0-11.0); Monocytes % 7.2; Neutrophils % 65.5; Platelet Count 341 10^3/uL (130-400); RBC 4.47 10^6/uL (3.93-5.22); RDW-SD 53.4 fL; WBC 13.42 10^3/uL (4.4-10.8)
== END 2022-10-07 01:14 | disposition home or self-care (01) ==
PROVIDERS: PCP Nurse Practitioner Family; Visit Provider Psychiatry & Neurology Psychiatry
DX: Z79.899 Other long term (current) drug therapy (principal)
CPT/HCPCS: 36415; 85025

== ENCOUNTER 2022-10-14 02:42 | Outpatient (CLI) | payer OTHER, SELFPAY ==
[2022-10-14 14:33] LABS: Abs Immature Grans 0.06 10^3/uL (0.0-0.06); Absolute Basophil Count 0.05 10^3/uL (0.0-0.2); Absolute Lymphocyte Count 2.83 10^3/uL (1.2-3.4); Absolute Monocyte Count 0.95 10^3/uL (0.1-0.8); Basophils % 0.3; Eosinophils % 1.5; HCT 44.8 % (36.0-46.0); HGB 14.9 g/dL (11.2-15.7); Immature Grans % 0.4; Lymphocytes % 17.3; MCH 31.6 pg (27.0-33.0); MCHC 33.3 % (32.0-36.0); MCV 95 fL (80-95); Monocytes % 5.8; Neutrophils % 74.7; Platelet Count 405 10^3/uL (130-400); RBC 4.71 10^6/uL (3.93-5.22); RDW 14.8 % (11.7-14.6); RDW-SD 52.2 fL; WBC 16.37 10^3/uL (4.4-10.8)
[2022-10-14 14:34] LABS: Absolute Eosinophil Count 0.25 10^3/uL (0.0-0.7); Absolute Neutrophil Count 12.23 10^3/uL (1.2-6.7)
== END 2022-10-14 02:43 | disposition home or self-care (01) ==
PROVIDERS: PCP Nurse Practitioner Family; Visit Provider Psychiatry & Neurology Psychiatry
DX: F32.2 Major depressive disorder, single episode, severe without psychotic features (principal); F34.1 Dysthymic disorder; Z79.899 Other long term (current) drug therapy
CPT/HCPCS: 36415; 85025

== ENCOUNTER 2022-10-21 01:28 | Outpatient (CLI) | payer OTHER, SELFPAY ==
[2022-10-21 16:43] LABS: Abs Immature Grans 0.03 10^3/uL (0.0-0.06); Absolute Basophil Count 0.05 10^3/uL (0.0-0.2); Absolute Eosinophil Count 0.21 10^3/uL (0.0-0.7); Absolute Lymphocyte Count 3.23 10^3/uL (1.2-3.4); Absolute Neutrophil Count 7.11 10^3/uL (1.2-6.7); Basophils % 0.4; Eosinophils % 1.8; HCT 44.1 % (36.0-46.0); HGB 14.6 g/dL (11.2-15.7); Immature Grans % 0.3; Lymphocytes % 28.1; MCH 31.8 pg (27.0-33.0); MCHC 33.1 % (32.0-36.0); MCV 96 fL (80-95); MPV 8.9 fL (8.0-11.0); Monocytes % 7.6; Neutrophils % 61.8; Platelet Count 426 10^3/uL (130-400); RBC 4.59 10^6/uL (3.93-5.22); RDW 14.7 % (11.7-14.6); RDW-SD 52.3 fL; WBC 11.51 10^3/uL (4.4-10.8)
[2022-10-21 16:46] LABS: Absolute Monocyte Count 0.87 10^3/uL (0.1-0.8)
== END 2022-10-21 01:29 | disposition home or self-care (01) ==
PROVIDERS: PCP Nurse Practitioner Family; Visit Provider Psychiatry & Neurology Psychiatry
DX: Z79.899 Other long term (current) drug therapy (principal); F32.2 Major depressive disorder, single episode, severe without psychotic features
CPT/HCPCS: 36415; 85025

== ENCOUNTER 2022-10-28 00:59 | Outpatient (CLI) | payer OTHER, SELFPAY ==
[2022-10-31 12:34] LABS: Abs Immature Grans 0.06 10^3/uL (0.0-0.06); Absolute Basophil Count 0.05 10^3/uL (0.0-0.2); Absolute Eosinophil Count 0.29 10^3/uL (0.0-0.7); Absolute Lymphocyte Count 3.64 10^3/uL (1.2-3.4); Absolute Monocyte Count 0.92 10^3/uL (0.1-0.8); Absolute Neutrophil Count 7.64 10^3/uL (1.2-6.7); Basophils % 0.4; Eosinophils % 2.3; HCT 41.6 % (36.0-46.0); HGB 13.7 g/dL (11.2-15.7); Immature Grans % 0.5; Lymphocytes % 28.9; MCH 31.8 pg (27.0-33.0); MCHC 32.9 % (32.0-36.0); MCV 97 fL (80-95); MPV 9.2 fL (8.0-11.0); Monocytes % 7.3; Neutrophils % 60.6; Platelet Count 401 10^3/uL (130-400); RBC 4.31 10^6/uL (3.93-5.22); RDW-SD 54.2 fL; WBC 12.61 10^3/uL (4.4-10.8)
== END 2022-10-28 01:00 | disposition home or self-care (01) ==
PROVIDERS: PCP Nurse Practitioner Family; Visit Provider Psychiatry & Neurology Psychiatry
DX: Z79.899 Other long term (current) drug therapy (principal); F32.2 Major depressive disorder, single episode, severe without psychotic features
CPT/HCPCS: 36415; 85025

== ENCOUNTER 2022-11-04 01:05 | Outpatient (CLI) | payer OTHER, SELFPAY ==
[2022-11-04 15:24] LABS: Abs Immature Grans 0.06 10^3/uL (0.0-0.06); Absolute Lymphocyte Count 3.37 10^3/uL (1.2-3.4); Absolute Neutrophil Count 8.61 10^3/uL (1.2-6.7); Basophils % 0.5; Eosinophils % 2.6; Immature Grans % 0.5; Lymphocytes % 25.4; MCH 32.3 pg (27.0-33.0); MCHC 33.3 % (32.0-36.0); MCV 97 fL (80-95); MPV 8.9 fL (8.0-11.0); Platelet Count 368 10^3/uL (130-400); RBC 4.34 10^6/uL (3.93-5.22); RDW 15.2 % (11.7-14.6); WBC 13.25 10^3/uL (4.4-10.8)
[2022-11-04 15:35] LABS: Absolute Basophil Count 0.07 10^3/uL (0.0-0.2); Absolute Eosinophil Count 0.34 10^3/uL (0.0-0.7)
== END 2022-11-04 01:06 | disposition home or self-care (01) ==
PROVIDERS: PCP Nurse Practitioner Family; Visit Provider Psychiatry & Neurology Psychiatry
DX: Z79.899 Other long term (current) drug therapy (principal); F32.2 Major depressive disorder, single episode, severe without psychotic features; F43.10 Post-traumatic stress disorder, unspecified
CPT/HCPCS: 36415; 85025

== ENCOUNTER 2022-11-11 02:45 | Outpatient (CLI) | payer OTHER, SELFPAY ==
[2022-11-11 16:25] LABS: Abs Immature Grans 0.05 10^3/uL (0.0-0.06); Absolute Lymphocyte Count 3.29 10^3/uL (1.2-3.4); Absolute Monocyte Count 0.97 10^3/uL (0.1-0.8); Basophils % 0.4; HCT 42.8 % (36.0-46.0); HGB 14.4 g/dL (11.2-15.7); Immature Grans % 0.4; MCHC 33.6 % (32.0-36.0); MCV 95 fL (80-95); MPV 8.8 fL (8.0-11.0); Monocytes % 7.1; Neutrophils % 66.1; Platelet Count 414 10^3/uL (130-400); RDW 15.1 % (11.7-14.6); RDW-SD 52.8 fL; WBC 13.69 10^3/uL (4.4-10.8)
[2022-11-11 16:26] LABS: Absolute Basophil Count 0.05 10^3/uL (0.0-0.2); Absolute Eosinophil Count 0.27 10^3/uL (0.0-0.7); Absolute Neutrophil Count 9.05 10^3/uL (1.2-6.7)
== END 2022-11-11 02:46 | disposition home or self-care (01) ==
PROVIDERS: PCP Family Medicine; Visit Provider Psychiatry & Neurology Psychiatry
DX: F32.2 Major depressive disorder, single episode, severe without psychotic features (principal); F43.10 Post-traumatic stress disorder, unspecified; Z79.899 Other long term (current) drug therapy
CPT/HCPCS: 36415; 85025

== ENCOUNTER 2022-11-18 02:57 | Outpatient (CLI) | payer OTHER, SELFPAY ==
[2022-11-18 16:17] LABS: Abs Immature Grans 0.07 10^3/uL (0.0-0.06); Absolute Basophil Count 0.06 10^3/uL (0.0-0.2); Absolute Eosinophil Count 0.35 10^3/uL (0.0-0.7); Absolute Lymphocyte Count 3.35 10^3/uL (1.2-3.4); Absolute Monocyte Count 0.98 10^3/uL (0.1-0.8); Absolute Neutrophil Count 9.34 10^3/uL (1.2-6.7); Basophils % 0.4; Eosinophils % 2.5; HCT 43.2 % (36.0-46.0); HGB 14.5 g/dL (11.2-15.7); Immature Grans % 0.5; Lymphocytes % 23.7; MCH 32.1 pg (27.0-33.0); MCHC 33.6 % (32.0-36.0); MCV 96 fL (80-95); Monocytes % 6.9; Platelet Count 433 10^3/uL (130-400); RBC 4.52 10^6/uL (3.93-5.22); RDW 15.1 % (11.7-14.6); RDW-SD 53.9 fL; WBC 14.15 10^3/uL (4.4-10.8)
== END 2022-11-18 02:58 | disposition home or self-care (01) ==
PROVIDERS: PCP Family Medicine; Visit Provider Psychiatry & Neurology Psychiatry
DX: F32.2 Major depressive disorder, single episode, severe without psychotic features (principal); F43.10 Post-traumatic stress disorder, unspecified; Z79.899 Other long term (current) drug therapy
CPT/HCPCS: 36415; 85025

== ENCOUNTER 2022-11-25 01:35 | Outpatient (CLI) | payer OTHER, SELFPAY ==
[2022-11-25 16:36] LABS: Abs Immature Grans 0.03 10^3/uL (0.0-0.06); Absolute Basophil Count 0.07 10^3/uL (0.0-0.2); Absolute Eosinophil Count 0.18 10^3/uL (0.0-0.7); Absolute Lymphocyte Count 3.56 10^3/uL (1.2-3.4); Absolute Monocyte Count 0.83 10^3/uL (0.1-0.8); Absolute Neutrophil Count 7.48 10^3/uL (1.2-6.7); Basophils % 0.6; Eosinophils % 1.5; HCT 39.2 % (36.0-46.0); HGB 13.1 g/dL (11.2-15.7); Immature Grans % 0.2; Lymphocytes % 29.3; MCHC 33.4 % (32.0-36.0); MCV 96 fL (80-95); MPV 8.6 fL (8.0-11.0); Monocytes % 6.8; Neutrophils % 61.6; Platelet Count 415 10^3/uL (130-400); RDW 14.8 % (11.7-14.6); WBC 12.15 10^3/uL (4.4-10.8)
== END 2022-11-25 01:36 | disposition home or self-care (01) ==
PROVIDERS: PCP Family Medicine; Visit Provider Psychiatry & Neurology Psychiatry
DX: Z79.899 Other long term (current) drug therapy (principal)
CPT/HCPCS: 36415; 85025

== ENCOUNTER 2022-12-02 01:39 | Outpatient (CLI) | payer OTHER, SELFPAY ==
[2022-12-02 16:19] LABS: Abs Immature Grans 0.04 10^3/uL (0.0-0.06); Absolute Eosinophil Count 0.24 10^3/uL (0.0-0.7); Absolute Lymphocyte Count 2.92 10^3/uL (1.2-3.4); Basophils % 0.4; Eosinophils % 2.1; HGB 13.3 g/dL (11.2-15.7); Immature Grans % 0.4; Lymphocytes % 25.8; MCH 31.8 pg (27.0-33.0); MCHC 33.3 % (32.0-36.0); MCV 96 fL (80-95); MPV 8.6 fL (8.0-11.0); Monocytes % 5.8; Neutrophils % 65.5; Platelet Count 446 10^3/uL (130-400); RBC 4.18 10^6/uL (3.93-5.22); RDW 15.3 % (11.7-14.6); RDW-SD 54.1 fL
[2022-12-02 16:22] LABS: Absolute Basophil Count 0.05 10^3/uL (0.0-0.2); Absolute Monocyte Count 0.66 10^3/uL (0.1-0.8)
== END 2022-12-02 01:40 | disposition home or self-care (01) ==
PROVIDERS: PCP Family Medicine; Visit Provider Psychiatry & Neurology Psychiatry
DX: Z79.899 Other long term (current) drug therapy (principal)
CPT/HCPCS: 36415; 85025

== ENCOUNTER 2022-12-09 01:19 | Outpatient (CLI) | payer OTHER, SELFPAY ==
[2022-12-09 16:39] LABS: Abs Immature Grans 0.03 10^3/uL (0.0-0.06); Absolute Eosinophil Count 0.35 10^3/uL (0.0-0.7); Absolute Monocyte Count 0.76 10^3/uL (0.1-0.8); Absolute Neutrophil Count 6.91 10^3/uL (1.2-6.7); Basophils % 0.4; Eosinophils % 3.1; HCT 40.2 % (36.0-46.0); HGB 13.2 g/dL (11.2-15.7); Immature Grans % 0.3; Lymphocytes % 28.3; MCH 32.1 pg (27.0-33.0); MCHC 32.8 % (32.0-36.0); MCV 98 fL (80-95); MPV 8.8 fL (8.0-11.0); Monocytes % 6.7; Neutrophils % 61.2; Platelet Count 414 10^3/uL (130-400); RBC 4.11 10^6/uL (3.93-5.22); RDW 15.4 % (11.7-14.6); RDW-SD 55.1 fL; WBC 11.29 10^3/uL (4.4-10.8)
[2022-12-09 16:40] LABS: Absolute Basophil Count 0.05 10^3/uL (0.0-0.2)
== END 2022-12-09 01:20 | disposition home or self-care (01) ==
PROVIDERS: PCP Family Medicine; Visit Provider Psychiatry & Neurology Psychiatry
DX: Z79.899 Other long term (current) drug therapy (principal)
CPT/HCPCS: 36415; 85025

== ENCOUNTER 2022-12-16 01:38 | Outpatient (CLI) | payer OTHER, SELFPAY ==
[2022-12-16 16:11] LABS: Abs Immature Grans 0.03 10^3/uL (0.0-0.06); Absolute Basophil Count 0.06 10^3/uL (0.0-0.2); Absolute Monocyte Count 0.98 10^3/uL (0.1-0.8); Absolute Neutrophil Count 6.61 10^3/uL (1.2-6.7); Basophils % 0.5; Eosinophils % 2.4; HCT 40.5 % (36.0-46.0); HGB 13.5 g/dL (11.2-15.7); Immature Grans % 0.3; Lymphocytes % 30.7; MCH 32.5 pg (27.0-33.0); MCHC 33.3 % (32.0-36.0); MCV 98 fL (80-95); MPV 8.9 fL (8.0-11.0); Monocytes % 8.5; Neutrophils % 57.6; Platelet Count 364 10^3/uL (130-400); RBC 4.15 10^6/uL (3.93-5.22); RDW 15.3 % (11.7-14.6); RDW-SD 55.3 fL; WBC 11.48 10^3/uL (4.4-10.8)
[2022-12-16 16:12] LABS: Absolute Eosinophil Count 0.28 10^3/uL (0.0-0.7); Absolute Lymphocyte Count 3.52 10^3/uL (1.2-3.4)
== END 2022-12-16 01:39 | disposition home or self-care (01) ==
PROVIDERS: PCP Family Medicine; Visit Provider Psychiatry & Neurology Psychiatry
DX: Z79.899 Other long term (current) drug therapy (principal); F32.2 Major depressive disorder, single episode, severe without psychotic features; F43.10 Post-traumatic stress disorder, unspecified
CPT/HCPCS: 36415; 85025

== ENCOUNTER 2022-12-23 01:49 | Outpatient (CLI) | payer OTHER, SELFPAY ==
[2022-12-23 16:33] LABS: Abs Immature Grans 0.05 10^3/uL (0.0-0.06); Absolute Basophil Count 0.04 10^3/uL (0.0-0.2); Absolute Eosinophil Count 0.32 10^3/uL (0.0-0.7); Absolute Monocyte Count 0.79 10^3/uL (0.1-0.8); Absolute Neutrophil Count 9.62 10^3/uL (1.2-6.7); Basophils % 0.3; Eosinophils % 2.2; HCT 43.2 % (36.0-46.0); HGB 13.8 g/dL (11.2-15.7); Immature Grans % 0.3; Lymphocytes % 24.9; MCH 31.6 pg (27.0-33.0); MCHC 31.9 % (32.0-36.0); MCV 99 fL (80-95); Monocytes % 5.5; Neutrophils % 66.8; Platelet Count 387 10^3/uL (130-400); RBC 4.37 10^6/uL (3.93-5.22); RDW 14.8 % (11.7-14.6); RDW-SD 54.3 fL
[2022-12-23 16:39] LABS: Absolute Lymphocyte Count 3.59 10^3/uL (1.2-3.4)
== END 2022-12-23 01:50 | disposition home or self-care (01) ==
PROVIDERS: PCP Family Medicine; Visit Provider Psychiatry & Neurology Psychiatry
DX: Z79.899 Other long term (current) drug therapy (principal)
CPT/HCPCS: 36415; 85025

== ENCOUNTER 2022-12-30 00:50 | Outpatient (CLI) | payer OTHER, SELFPAY ==
[2022-12-30 16:50] LABS: Abs Immature Grans 0.06 10^3/uL (0.0-0.06); Basophils % 0.3; Eosinophils % 1.9; HCT 42.2 % (36.0-46.0); HGB 13.6 g/dL (11.2-15.7); Immature Grans % 0.3; Lymphocytes % 17.5; MCH 31.5 pg (27.0-33.0); MCHC 32.2 % (32.0-36.0); MCV 98 fL (80-95); MPV 8.9 fL (8.0-11.0); Monocytes % 5.6; Neutrophils % 74.4; Platelet Count 430 10^3/uL (130-400); RBC 4.32 10^6/uL (3.93-5.22); RDW 14.6 % (11.7-14.6); RDW-SD 52.7 fL; WBC 18.29 10^3/uL (4.4-10.8)
[2022-12-30 16:53] LABS: Absolute Basophil Count 0.05 10^3/uL (0.0-0.2); Absolute Eosinophil Count 0.35 10^3/uL (0.0-0.7); Absolute Monocyte Count 1.02 10^3/uL (0.1-0.8); Absolute Neutrophil Count 13.61 10^3/uL (1.2-6.7)
== END 2022-12-30 00:51 | disposition home or self-care (01) ==
PROVIDERS: PCP Family Medicine; Visit Provider Psychiatry & Neurology Psychiatry
DX: Z79.899 Other long term (current) drug therapy (principal)
CPT/HCPCS: 36415; 85025

== ENCOUNTER 2023-01-06 02:27 | Outpatient (CLI) | payer OTHER, SELFPAY ==
[2023-01-06 16:40] LABS: Abs Immature Grans 0.07 10^3/uL (0.0-0.06); Absolute Basophil Count 0.06 10^3/uL (0.0-0.2); Absolute Eosinophil Count 0.23 10^3/uL (0.0-0.7); Absolute Lymphocyte Count 3.35 10^3/uL (1.2-3.4); Absolute Monocyte Count 0.83 10^3/uL (0.1-0.8); Basophils % 0.4; Eosinophils % 1.5; HCT 41.5 % (36.0-46.0); HGB 13.5 g/dL (11.2-15.7); Immature Grans % 0.5; Lymphocytes % 21.7; MCH 31.5 pg (27.0-33.0); MCHC 32.5 % (32.0-36.0); MCV 97 fL (80-95); MPV 8.7 fL (8.0-11.0); Monocytes % 5.4; Neutrophils % 70.5; Platelet Count 422 10^3/uL (130-400); RBC 4.28 10^6/uL (3.93-5.22); RDW 14.6 % (11.7-14.6); RDW-SD 52.9 fL; WBC 15.45 10^3/uL (4.4-10.8)
[2023-01-06 16:42] LABS: Absolute Neutrophil Count 10.89 10^3/uL (1.2-6.7)
== END 2023-01-06 02:28 | disposition home or self-care (01) ==
PROVIDERS: PCP Family Medicine; Visit Provider Psychiatry & Neurology Psychiatry
DX: Z79.899 Other long term (current) drug therapy (principal)
CPT/HCPCS: 36415; 85025

== ENCOUNTER 2023-01-13 01:39 | Outpatient (CLI) | payer OTHER, SELFPAY ==
[2023-01-13 16:45] LABS: Absolute Basophil Count 0.04 10^3/uL (0.0-0.2); Absolute Eosinophil Count 0.23 10^3/uL (0.0-0.7); Absolute Lymphocyte Count 2.93 10^3/uL (1.2-3.4); Absolute Monocyte Count 0.86 10^3/uL (0.1-0.8); Basophils % 0.4; Eosinophils % 2.1; HCT 42.2 % (36.0-46.0); Immature Grans % 0.5; Lymphocytes % 26.5; MCHC 33.2 % (32.0-36.0); MCV 97 fL (80-95); MPV 8.8 fL (8.0-11.0); Monocytes % 7.8; Neutrophils % 62.7; Platelet Count 410 10^3/uL (130-400); RBC 4.37 10^6/uL (3.93-5.22); RDW 14.4 % (11.7-14.6); RDW-SD 51.9 fL; WBC 11.06 10^3/uL (4.4-10.8)
[2023-01-13 16:46] LABS: Abs Immature Grans 0.05 10^3/uL (0.0-0.06)
[2023-01-13 16:47] LABS: Absolute Neutrophil Count 6.93 10^3/uL (1.2-6.7)
== END 2023-01-13 01:40 | disposition home or self-care (01) ==
PROVIDERS: PCP Family Medicine; Visit Provider Psychiatry & Neurology Psychiatry
DX: F43.10 Post-traumatic stress disorder, unspecified (principal); F34.1 Dysthymic disorder; Z79.899 Other long term (current) drug therapy
CPT/HCPCS: 36415; 85025

== ENCOUNTER 2023-01-20 02:47 | Outpatient (CLI) | payer OTHER, SELFPAY ==
[2023-01-20 16:41] LABS: Abs Immature Grans 0.06 10^3/uL (0.0-0.06); Absolute Basophil Count 0.03 10^3/uL (0.0-0.2); Absolute Lymphocyte Count 0.75 10^3/uL (1.2-3.4); Absolute Neutrophil Count 15.68 10^3/uL (1.2-6.7); Basophils % 0.2; Eosinophils % 0.6; HCT 45.3 % (36.0-46.0); HGB 15.2 g/dL (11.2-15.7); Immature Grans % 0.4; Lymphocytes % 4.4; MCH 31.7 pg (27.0-33.0); MCHC 33.6 % (32.0-36.0); MCV 95 fL (80-95); MPV 8.9 fL (8.0-11.0); Monocytes % 2.7; Neutrophils % 91.7; Platelet Count 367 10^3/uL (130-400); RBC 4.79 10^6/uL (3.93-5.22); RDW 14.5 % (11.7-14.6); RDW-SD 50.8 fL
[2023-01-20 16:44] LABS: Absolute Monocyte Count 0.46 10^3/uL (0.1-0.8)
== END 2023-01-20 02:48 | disposition home or self-care (01) ==
PROVIDERS: PCP Family Medicine; Visit Provider Psychiatry & Neurology Psychiatry
DX: Z79.899 Other long term (current) drug therapy (principal)
CPT/HCPCS: 36415; 85025

== ENCOUNTER 2023-01-27 01:57 | Outpatient (CLI) | payer OTHER, SELFPAY ==
[2023-01-27 16:54] LABS: Abs Immature Grans 0.03 10^3/uL (0.0-0.06); Absolute Basophil Count 0.04 10^3/uL (0.0-0.2); Absolute Eosinophil Count 0.19 10^3/uL (0.0-0.7); Absolute Lymphocyte Count 2.93 10^3/uL (1.2-3.4); Basophils % 0.3; Eosinophils % 1.5; HCT 43.8 % (36.0-46.0); HGB 14.6 g/dL (11.2-15.7); Immature Grans % 0.2; Lymphocytes % 23.7; MCH 31.6 pg (27.0-33.0); MCHC 33.3 % (32.0-36.0); MCV 95 fL (80-95); MPV 8.7 fL (8.0-11.0); Monocytes % 5.7; Neutrophils % 68.6; Platelet Count 413 10^3/uL (130-400); RBC 4.62 10^6/uL (3.93-5.22); RDW-SD 48.8 fL; WBC 12.35 10^3/uL (4.4-10.8)
[2023-01-27 17:06] LABS: Absolute Neutrophil Count 8.47 10^3/uL (1.2-6.7)
== END 2023-01-27 01:58 | disposition home or self-care (01) ==
PROVIDERS: PCP Family Medicine; Visit Provider Psychiatry & Neurology Psychiatry
DX: F43.10 Post-traumatic stress disorder, unspecified (principal); F34.1 Dysthymic disorder; Z79.899 Other long term (current) drug therapy
CPT/HCPCS: 36415; 85025

== ENCOUNTER 2023-02-09 16:48 | Outpatient (REF) | payer OTHER, SELFPAY ==
[2023-02-09 22:07] LABS: Iron 92 ug/dL (50-170); Total Iron Binding Capacity 395 ug/dL (250-450); Transferrin Sat 23 % (15-50)
[2023-02-09 22:20] LABS: Ferritin 28 ng/mL (8-252); TSH 0.16 uIU/mL (0.36-3.74)
[2023-02-09 22:32] LABS: Vitamin D 25 Total 38.7 ng/mL (30-100)
[2023-02-10 10:03] LABS: FREE T4 1.22 ng/dL (0.76-1.46)
== END 2023-02-09 16:49 | disposition home or self-care (01) ==
LOC: NCHCN 16:48
PROVIDERS: PCP Family Medicine; Visit Provider Family Medicine
DX: E05.90 Thyrotoxicosis, unspecified without thyrotoxic crisis or storm (principal); E55.9 Vitamin D deficiency, unspecified; G25.81 Restless legs syndrome; R53.83 Other fatigue; R79.89 Other specified abnormal findings of blood chemistry
CPT/HCPCS: 82306; 82728; 83540; 83550; 84439; 84443

== ENCOUNTER 2023-03-10 00:04 | Outpatient (CLI) | payer OTHER, SELFPAY ==
--- NOTE | 2023-03-10 15:59 | DI.MAMMO_ITS ---
Exam(s) MAMMO SCREENING EXAM: MAMMO SCREENING CLINICAL HISTORY: SCREENING, Z12.39 TECHNIQUE: Mammograms were interpreted according to the usual protocol including computer analysis w [employer] CAD system, tomosynthesis and C-view imaging. COMPARISON: None. Baseline examination. FINDINGS: The breasts are composed of scattered fibroglandular densities, Breast Density category B. No suspicious masses or suspicious microcalcifications are seen. Scattered benign calcifications are noted. No skin thickening or abnormal axillary lymph nodes are seen. IMPRESSION: BI-RADS Category 2 - Benign Findings Negative Mammogram with benign findings. Yearly screening mammography is recommended. Breast Density - Category B, scattered fibroglandular densities. A negative radiographic report should not delay biopsy if a dominant or clinically suspicious mass is present. Up to ten percent of cancers are not identified on mammography. A negative report may reinforce clinical impression. Adenosis and dense breasts may obscure an underlying neoplasm. False positive reports average 6 to 10%. Patient will receive a letter notifying them of these results.
== END 2023-03-10 00:24 ==
PROVIDERS: PCP Family Medicine; Visit Provider Family Medicine
DX: Z12.31 Encounter for screening mammogram for malignant neoplasm of breast (principal)
CPT/HCPCS: 77063; 77067

== ENCOUNTER 2023-08-09 02:50 | Outpatient (CLI) | payer SELFPAY ==
[2023-08-09 09:31] LABS: ALT 16 U/L (14-59); AST 11 U/L (15-37); Albumin 3.3 g/dL (3.4-5.0); Alkaline Phosphatase 97 U/L (46-116); Anion Gap 9.7 mmol/L (3-11); BUN 16 mg/dL (7-18); Bilirubin, Total 0.3 mg/dL (0.2-1.0); CO2 22.3 mmol/L (21.0-32.0); Calcium 9.3 mg/dL (8.5-10.1); Calculated LDL 103 mg/dL (<100); Chloride 108 mmol/L (98-107); Cholesterol 165 mg/dL (<200); Estimated GFR 70.36 (mL/min/1.73m2); Glucose 117 mg/dL (74-106); HDL Cholesterol 48 mg/dL (40-60); Potassium 4.1 mmol/L (3.5-5.1); Sodium 140 mmol/L (136-145); TSH (W/Ref FT4) 0.13 uIU/mL (0.36-3.74); Total Protein 7.4 g/dL (6.4-8.2); Triglyceride 73 mg/dL (<150)
[2023-08-09 09:52] LABS: FREE T4 1.06 ng/dL (0.76-1.46)
== END 2023-08-09 02:51 | disposition home or self-care (01) ==
LOC: LBO 02:51
PROVIDERS: PCP Nurse Practitioner; Visit Provider Nurse Practitioner
DX: E05.90 Thyrotoxicosis, unspecified without thyrotoxic crisis or storm (principal); R79.89 Other specified abnormal findings of blood chemistry
CPT/HCPCS: 36415; 80053; 80061; 84439; 84443

== ENCOUNTER → 2023-09-22 18:40 | Outpatient (CLI) | payer SELFPAY ==
--- NOTE | 2023-09-22 13:05 | DI.RAD_ITS ---
Exam(s) XR CHEST 2V PA LATERAL EXAM: XR CHEST 2V PA LATERAL CLINICAL HISTORY: Worsening dyspnea R06.00. TECHNIQUE: 2D digital imaging was performed. COMPARISON: CR,XR XR CHEST 2V PA LATERAL from 08/27/2021 FINDINGS: 2 views: Heart size is normal. The mediastinum is not widened. Lungs are clear. No infiltrates nor pleural effusions. IMPRESSION: No acute pulmonary findings. DATA REPOSITORY: RADIATION DOSE DELIVERED:
== END ==
PROVIDERS: PCP Nurse Practitioner; Visit Provider Family Medicine
DX: R06.00 Dyspnea, unspecified (principal)
CPT/HCPCS: 71046

== ENCOUNTER 2024-02-27 04:04 | Outpatient (CLI) | payer BC, SELFPAY ==
[2024-02-27 17:01] LABS: Abs Immature Grans 0.05 10^3/uL (0.0-0.06); Absolute Basophil Count 0.07 10^3/uL (0.0-0.2); Absolute Eosinophil Count 0.48 10^3/uL (0.0-0.7); Absolute Monocyte Count 1.09 10^3/uL (0.1-0.8); Basophils % 0.5; Eosinophils % 3.5; HCT 47.6 % (36.0-46.0); HGB 15.8 g/dL (11.2-15.7); Immature Grans % 0.4; Lymphocytes % 23.8; MCH 32.6 pg (27.0-33.0); MCHC 33.2 % (32.0-36.0); MCV 98 fL (80-95); Neutrophils % 63.8; Platelet Count 358 10^3/uL (130-400); RBC 4.85 10^6/uL (3.93-5.22); RDW 14.6 % (11.7-14.6); RDW-SD 53.3 fL; WBC 13.64 10^3/uL (4.4-10.8)
[2024-02-27 17:02] LABS: Absolute Lymphocyte Count 3.25 10^3/uL (1.2-3.4)
[2024-02-27 17:44] LABS: *AMPHETAMINES SCREEN URINE Negative (Negative); *BARBITURATES SCREEN URINE Negative (Negative); *BENZODIAZEPINES SCREEN URINE Positive (Negative); Cannabinoids THC Positive (Negative); Cocaine Screen,Urine Negative (Negative); METHADONE URINE SCREEN Negative (Negative); OPIATES URINE SCREEN Negative (Negative); Tricyclic Antidepressants Negative (Negative)
[2024-02-27 17:55] LABS: ALT 21 U/L (14-59); AST 11 U/L (15-37); Albumin 3.4 g/dL (3.4-5.0); Alkaline Phosphatase 108 U/L (46-116); Anion Gap 10.3 mmol/L (3-11); BUN 18 mg/dL (7-18); Bilirubin, Total 0.2 mg/dL (0.2-1.0); CO2 26.7 mmol/L (21.0-32.0); CREATININE 1.3 mg/dL (0.55-1.02); Calcium 8.9 mg/dL (8.5-10.1); Calculated LDL 101 mg/dL (<100); Chloride 108 mmol/L (98-107); Cholesterol 208 mg/dL (<200); Estimated GFR 51.04 (mL/min/1.73m2); Glucose 100 mg/dL (74-106); HDL Cholesterol 49 mg/dL (40-60); Potassium 3.8 mmol/L (3.5-5.1); Sodium 145 mmol/L (136-145); TSH (W/Ref FT4) 0.23 uIU/mL (0.36-3.74); Total Protein 7.3 g/dL (6.4-8.2); Triglyceride 294 mg/dL (<150); Vitamin B12 412 pg/mL (193-986)
[2024-02-27 17:58] LABS: Hemoglobin A1C 5.3 % (<5.7)
[2024-02-27 18:14] LABS: FREE T4 0.98 ng/dL (0.76-1.46)
[2024-02-27 18:32] LABS: Vitamin D 25 Total 21.8 ng/mL (30-100)
[2024-02-29 10:27] LABS: HBs Antibody, Quant 124.9 mIU/mL (See Note); Hepatitis B Surface Ab Positive (See Note)
[2024-02-29 11:15] LABS: HIV-1/2 Ag & Ab Screen Negative (Negative)
[2024-02-29 11:35] LABS: Hepatitis A Antibody IgM Negative (Negative); Hepatitis B Core Antibody Negative (Negative); Hepatitis B surface Ag Negative (Negative); Hepatitis C Ab w Rflx HCV PCR Negative (Negative)
== END 2024-02-27 04:05 | disposition home or self-care (01) ==
PROVIDERS: PCP Nurse Practitioner Family; Visit Provider Nurse Practitioner Family
DX: I10 Essential (primary) hypertension (principal); E55.9 Vitamin D deficiency, unspecified; D51.3 Other dietary vitamin B12 deficiency anemia; E03.9 Hypothyroidism, unspecified; Z00.00 Encounter for general adult medical examination without abnormal findings
CPT/HCPCS: 36415; 80053; 80061; 80307; 82306; 86704; 86706; 86709; 86803; 87340; 87389; 82607; 83036; 84439; 84443; 85025

== ENCOUNTER → 2024-03-28 02:11 | Outpatient (CLI) | payer MEDICARE, SELFPAY ==
--- NOTE | 2024-03-28 07:30 | DI.US_ITS ---
Exam(s) US PELVIS TRANSVAGINAL EXAM: US PELVIS TRANSVAGINAL CLINICAL HISTORY: dyspareunia, pelvic floor pain,r10.2,z90.710,h/o lavh. TECHNIQUE: Transabdominal and transvaginal pelvic ultrasound was performed using standard protocol. COMPARISON: US US PELVIS TRANSVAGINAL from 02/24/2021 FINDINGS: UTERUS: Status post hysterectomy. OVARIES: Status post right oophorectomy. The left ovary is poorly visualized. Left: 1.1 x 0.6 x 0.8 cm Cyst or mass: No suspicious cystic or solid masses. DOPPLER: Color: There is blood flow seen to the left ovary. CUL-DE-SAC: Free fluid: None. Other: None. IMPRESSION: 1. Status post hysterectomy and right oophorectomy. 2. The left ovary as visualized is grossly unremarkable. DATA REPOSITORY:
== END ==
PROVIDERS: PCP Nurse Practitioner Family; Visit Provider Obstetrics & Gynecology Gynecology
DX: Z90.710 Acquired absence of both cervix and uterus (principal); R10.2 Pelvic and perineal pain
CPT/HCPCS: 76830; 76856

== ENCOUNTER 2024-04-16 15:25 | Outpatient (CLI) | payer MEDICARE, SELFPAY ==
--- NOTE | 2024-04-16 15:15 | RT.EKG_ITS ---
APPROVED REPORT Exam: Resting ECG Reason for Exam: chest discomfort Patient Location: O HR:54 bpm ECG Measurements Heart Rate 54 AXIS KS 167 P 54 QRSd 96 QRS 47 QT 422 T 49 QTc 400 Conclusion Sinus rhythm...normal P axis, V-rate 50- 99 Normal Electrocardiogram
== END 2024-04-16 15:26 | disposition home or self-care (01) ==
LOC: DI.CM 15:25
PROVIDERS: PCP Nurse Practitioner Family; Visit Provider Nurse Practitioner Family
DX: R07.89 Other chest pain (principal)
CPT/HCPCS: 93010

== ENCOUNTER 2024-04-16 16:47 | Emergency (ER) | payer MEDICARE, SELFPAY ==
[2024-04-16] VITALS (24 sets, daily range): BP systolic 121–151; BP diastolic 67–94; PULSE 52–69; RESP 7–20; O2SAT 90–98
--- NOTE | 2024-04-16 16:45 | RT.EKG_ITS ---
APPROVED REPORT Exam: Resting ECG Reason for Exam: chest pain, sob Patient Location: E HR:51 bpm ECG Measurements Heart Rate 51 AXIS MA 190 P 52 QRSd 100 QRS 31 QT 441 T 35 QTc 409 Conclusion Sinus bradycardia...rate< 60 Normal [place] Normal Electrocardiogram
--- NOTE | 2024-04-16 17:00 | DI.RAD_ITS ---
Exam(s) XR CHEST 2V PA LATERAL EXAM: XR CHEST 2V PA LATERAL CLINICAL HISTORY: SOB, Chest pain TECHNIQUE: 2D digital imaging was performed of the chest. Two images were obtained. PA and lateral views were obtained. COMPARISON: CR XR CHEST 2V PA LATERAL from 09/22/2023 FINDINGS: MEDIASTINUM: Normal. HEART: Normal. PULMONARY VASCULATURE: Normal. LUNGS: Clear. PLEURAL SPACE: No pleural effusion or pneumothorax. BONE:Within normal limits for the patient's age. OTHER FINDINGS:Normal. IMPRESSION: No acute pulmonary findings. DATA REPOSITORY: RADIATION DOSE DELIVERED:
[2024-04-16 17:28] LABS: Abs Immature Grans 0.04 10^3/uL (0.0-0.06); Absolute Eosinophil Count 0.39 10^3/uL (0.0-0.7); Absolute Lymphocyte Count 2.74 10^3/uL (1.2-3.4); Absolute Monocyte Count 0.64 10^3/uL (0.1-0.8); Absolute Neutrophil Count 7.29 10^3/uL (1.2-6.7); Basophils % 0.4 %; Eosinophils % 3.5 %; HCT 44.9 % (36.0-46.0); HGB 15.3 g/dL (11.2-15.7); Immature Grans % 0.4 %; Lymphocytes % 24.6 %; MCH 32.1 pg (27.0-33.0); MCHC 34.1 % (32.0-36.0); MCV 94 fL (80-95); MPV 8.9 fL (8.0-11.0); Monocytes % 5.7 %; Neutrophils % 65.4 %; Platelet Count 433 10^3/uL (130-400); RBC 4.76 10^6/uL (3.93-5.22); RDW 14.1 % (11.7-14.6); RDW-SD 49.2 fL; WBC 11.15 10^3/uL (4.4-10.8)
[2024-04-16 17:29] LABS: Absolute Basophil Count 0.04 10^3/uL (0.0-0.2)
[2024-04-16 17:49] LABS: ALT 21 U/L (14-59); AST 12 U/L (15-37); Albumin 3.4 g/dL (3.4-5.0); Alkaline Phosphatase 104 U/L (46-116); Anion Gap 9.7 mmol/L (3-11); BUN 12 mg/dL (7-18); Bilirubin, Total 0.2 mg/dL (0.2-1.0); CO2 31.3 mmol/L (21.0-32.0); CREATININE 0.9 mg/dL (0.55-1.02); Calcium 9.1 mg/dL (8.5-10.1); Chloride 103 mmol/L (98-107); Estimated GFR 79.35 (mL/min/1.73m2); Glucose 116 mg/dL (74-106); HCG Qual (Serum) Negative; Magnesium 1.5 mg/dL (1.8-2.4); Potassium 3.1 mmol/L (3.5-5.1); Sodium 144 mmol/L (136-145); Total Protein 7.5 g/dL (6.4-8.2); Troponin I < 50 ng/L (< or =60)
[2024-04-16 17:58] LABS: D-Dimer 584 ng/mlFEU (<500)
--- NOTE | 2024-04-16 18:15 | DI.CT_ITS ---
Exam(s) CT CHEST PE CTA EXAM: CT CHEST PE CTA CLINICAL HISTORY: Elevated Dimer, SOB, Chest Pain. TECHNIQUE: Imaging Protocol: Axial CT angiography was performed with multi-slice acquisition and mu lti-planar and/or 3D reconstructions. CONTRAST MATERIAL: Intravenous: Omnipaque 350 contrast volume:85 mL COMPARISON: CT RENAL COLIC WO CONTRAST from 10/23/[address] ABDOMEN PELVIS W from 10/14/2020 FINDINGS: The examination is limited due to patient motion artifact. Tracheobronchial tree: Patent where visualized. Pulmonary parenchyma: There is poor inspiration with atelectatic changes in the lung bases. No archi tectural distortion. Pulmonary Arteries: No evidence of filling defect to suggest pulmonary emboli. Mediastinum and Betsy: No dominant adenopathy or fluid collection. The esophagus is unremarkable. Visualized thyroid gland: Unremarkable. Pleura: No effusion or pneumothorax. Heart: The heart is not dilated. No coronary artery calcifications are seen. No pericardial effusion. Aorta: Thoracic aorta non-dilated. No evidence of dissection. Upper abdomen: Unremarkable. Soft tissues: Unremarkable. Bones: Within normal limits for the patient's age. IMPRESSION: 1. No evidence of pulmonary embolism, thoracic aortic dissection or aneurysm. 2. Poor inspiration with probable atelectatic changes in the lung bases. Please correlate clinically . RADIATION DOSE DELIVERED: 426.97mGy.cm Total DLP DATA REPOSITORY: All CT scans at this facility are submitted to the National Radiology Data Registry (NRDR) Dose Index Registry (DIR) with the [employer] (ACR). RADIATION OPTIMIZATION: All CT scans at this facility use at least one of these dose optimization te chniques: automated exposure control; mA and/or kV adjustment per patient size (includes targeted exa ms where dose is matched to clinical indication); or iterative reconstruction.
[2024-04-16] MEDS: MAGNESIUM SULFATE 1 GM/100 ML BAG IVINF (18:51)
[2024-04-16] MEDS: Omnipaque 350 MG/ML 100 ML BTL IJ (19:19)
[2024-04-16] MEDS: Normal Saline Flush 10 ML SYR IVP (19:20)
[2024-04-16] MEDS: Normal Saline - Diluent 50 ML VIAL IJ (19:21)
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
--- NOTE | 2024-04-16 20:37 | DI.VRAD_ITS ---
PROCEDURE INFORMATION: Exam: CTA Chest With Contrast Exam date and time: 04/16/2024 7:32 PM Age: 48 years old Clinical indication: Abnormal findings; Abnormal diagnostic tests; Elevated d-dimer; Shortness of breath; Patient HX: Elevated dimer, SOB, chest pain TECHNIQUE: Imaging protocol: Computed tomographic angiography of the chest with contrast. Exam focused on the arteries. 3D rendering (Not supervised by radiologist): MIP and/or 3D reconstructed images were created by the technologist. Radiation optimization: All CT scans at this facility use at least one of these dose optimization techniques: automated exposure control; mA and/or kV adjustment per patient size (includes targeted exams where dose is matched to clinical indication); or iterative reconstruction. Contrast material: OMNIPAQUE 350; Contrast volume: 85 ml; Contrast route: INTRAVENOUS (IV); COMPARISON: CR XR CHEST 2V PA LATERAL 04/16/2024 6:16 PM FINDINGS: Pulmonary arteries: Normal. No pulmonary emboli. Aorta: Unremarkable. No aortic aneurysm. No aortic dissection. Lungs: Patchy ground-glass opacity and linear opacities in the dependent portions of both lungs suggesting atelectasis. Lungs are otherwise clear. Pleural spaces: Unremarkable. No pneumothorax. No pleural effusion. Heart: Unremarkable. No cardiomegaly. No pericardial effusion. Lymph nodes: Unremarkable. No enlarged lymph nodes. Bones/joints: Unremarkable. No acute fracture. Soft tissues: Unremarkable. IMPRESSION: 1. No evidence of pulmonary embolus 2. Mild ground-glass and linear opacities in the dependent portions of both lungs suggesting atelectasis. cannot exclude mild pneumonitis. Dictated and Authenticated by: Zachariah Jimenez MD. Ordering:SOPHIA Lombardi MD
[2024-04-16 20:45] LABS: COVID-19 PCR Negative (Negative); Influenza A PCR Negative (Negative); Influenza B PCR Negative (Negative); RSV PCR Negative (Negative)
[2024-04-16 20:46] LABS: Troponin I < 50 ng/L (< or =60)
[2024-04-16 20:50] LABS: Source Nasopharynx
[2024-04-16 20:53] LABS: Prothrombin Time 9.9 sec (9.1-11.1)
[2024-04-16] MEDS: predniSONE 20 MG TAB 60 MG PO (21:21)
== END 2024-04-16 21:21 | disposition home or self-care (01) ==
PROVIDERS: Emergency Provider Registered Nurse Emergency; PCP Nurse Practitioner Family
DX: R07.9 Chest pain, unspecified (principal); R06.02 Shortness of breath; R42 Dizziness and giddiness; J98.4 Other disorders of lung; Z87.01 Personal history of pneumonia (recurrent)
CPT/HCPCS: 36415; 71275; 80053; 87637; 93005; 96365; 96366; 99285; 71046; 83735; 84484; 84703; 85025; 85379; 85610; 85730; 93010; 99283; J3475; J3490; J7512

== ENCOUNTER 2024-07-30 16:24 | Emergency (ER) | payer MEDICARE, SELFPAY ==
[2024-07-30 16:28] VITALS: BP 139/87; PULSE 70; RESP 16; TEMP 37; O2SAT 94
--- OUTSIDE RECORDS SUMMARY | 2024-07-30 16:32 | XMS_ITS | Encounter Summary ---
Author Organization Formerly [facility], [facility] [place] [address] Care Team Providers Care Technical Staff Engineer Name Role Phone Malgorzata Orellana APRN Primary Care Provider Reason for Referral * Diagnostic Test (Routine) - Pending Review Specialty Diagnoses / Procedures Referred By Jennifer t Referred To Contact Radiology Diagnoses Right internal carotid artery aneurysm Procedures MRI Angiogram Head wo Contrast (Generic) Gricel Stoddard APRN [facility] [place] [address] [place] [address] Referral ID Status Reason Start Date Expiration Date Visits Requested Visits Authorized [id number] Pending Review Specialty Service Requested 02/07/2024 08/09/2025 1 1 Encounter Details Date Type Department Care Team (Latest Contact Info) Description 02/07/2024 3:20 PM EDT TH Visit (TeleHealth) [place] [address] Gricel Stoddard APRN [facility] [address] Right internal carotid artery aneurysm Social History Tobacco Use Types Packs/Day Years Used Date Smoking Tobacco: Every Day Cigarettes Smokeless Tobacco: Never Alcohol Use Standard Drinks/Week Comments Yes 7 (1 standard drink = 0.6 oz pur e alcohol) 1 can of beer a night Sex and Gender Information Value Date Recorded Sex Assigned at Female 12/12/2021 11:37 AM EST Gender Identity Female 11/16/2020 12:55 PM EST Sexual Orientation Straight 02/09/2022 11 :36 AM EDT documented as of this encounter Progress Notes * Gricel Stoddard, REHABILITATION SERVICES COUNSELOR - 02/07/2024 3:20 PM EDT ASSESSMENT/PLAN: Right internal carotid artery aneurysm No change in treated and remaining small aneurysm. Continue ASA 81mg. Because of family history, age, and smoking, will continue with annual surveillance. Suggested that she discuss change in headache medications and/or referral to neurologist locally for additional management of headaches. Discussed symptoms of SAH and potential distinction from migraine headaches. CHIEF COMPLAINT (in bold): Patient Active Problem List Diagnosis Right internal carotid artery aneurysm Overview Note: CTA head (11/08/2021) - right paraclinoid ICA aneurysm measuring 7 mm in largest dimension extending intradurally. Incidental finding. 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 Bloom. Missed HCK 05/04/22, letter sent re: post-op instructions. See Letters tab. 11/21/22 angiogram: Aneurysm excluded from circulation, stent endothelialized. Stopped Plavix, continue aSA 81mg. Mother with cerebral aneurysms, discussed family screening 06/2023. Bipolar disorder Restless leg syndrome Persistent depressive disorder CIS - Anxiety/depression CIS - kidney stones CIS - Knee arthritis CIS - Obesity Overview Note: Wt = 171 lbs (03/13/09) with PCP CIS - subclinical hyperthyroidism Overview Note: Lab [...] = 8.4, T3 = 110 (normal 75-170) HISTORY: Franchesca Dickson Seen via video visit. Having more frequent migraines, some have been very severe. Has to lie down in a dark room, takes excedrin. Has been on topamax, which previously was effective; this was prescribed by her psychiatrist--she has not seen a headache provider. PHYSICAL EXAM: No acute distress Awake, Alert, Interactive Fluent speech. IMAGING & OTHER RESULTS: MRA head 01/24/2012 personally reviewed. No evidence of recurrence of the right internal carotid artery aneurysm, no change in the 2 mm aneurysm adjacent to her treated aneurysm. documented in this encounter Miscellaneous Notes * Assessment & Plan Note - Gricel Stoddard APRN - 02/07/2024 3:50 PM EDT Associated Problem(s): Right internal carotid artery aneurysm No change in treated and remaining small aneurysm. Continue ASA 81mg. Because of family history, age, and smoking, will continue with annual surveillance. Suggested that she discuss change in headache medications and/or referral to neurologist locally for additional management of headaches. Discussed symptoms of SAH and potential distinction from migraine headaches. documented in this encounter Plan of Treatment Upcoming Encounters Date Type Department Care Team (Late st Contact Info) Description 01/24/2025 9:00 AM EDT TH Visit (TeleHealth) [place] [address] Gricel Stoddard APRN [facility] [address] Scheduled Orders Name Type Priority Associated Diagnoses Orde r Schedule MRI Angiogram Head wo Contrast (Generic) Imaging Routine Right internal carotid artery aneurysm Expected: 02/06/2025, Expires: 08/09/2025 documented as of this encounter Visit Diagnoses Diagnosis Right internal carotid artery aneurysm Cerebral aneurysm, nonruptured documented in this encounter Care Teams Technical Staff Engineer Relationship Specialty Start Date End Date Malgorzata Orellana APRN [address] [address] [address] PCP - General Internal Medicine 06/22/23 documented as of this encounter
--- OUTSIDE RECORDS SUMMARY | 2024-07-30 16:32 | XMS_ITS | Encounter Summary ---
[place] [address] Care Team Providers Care Contract Clerk Name Role Phone Malgorzata Orellana APRN Primary Care Provider [phone] Encounter Details Date Type Department Care Team (Latest Contact Info) Description 01/24/2024 Travel Social History Tobacco Use Types Packs/Day Years [...] AM EDT documented as of this encounter Plan of Treatment Upcoming Encounters Date Type Department Care Team (Late st Contact Info) Description 01/24/2025 9:00 AM EDT TH Visit (TeleHealth) [place] [address] Gricel Stoddard APRN [facility] [place] [address] documented as of this encounter Visit Diagnoses Not on filedocumented in this encounter Care Teams Contract Clerk Relationship Specialty Start Date End Date Malgorzata Orellana, CLINICAL REHABILITATION SPECIALIST [address] [place] [address] PCP - General Internal Medicine 06/22/23 documented as of this encounter
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
--- OUTSIDE RECORDS SUMMARY | 2024-07-30 16:32 | XMS_ITS | Encounter Summary ---
[place] [address] Care Team Providers Care Regional Sales Leader Name Role Phone Malgorzata Orellana APRN Primary Care Provider Reason for Referral * Diagnostic Test (Routine) - Closed Specialty Diagnoses / Procedures Referred By Contac t Referred To Contact Radiology Diagnoses Right internal carotid artery aneurysm Procedures MRI Angiogram Head wo Contrast (Generic) Gricel Stoddard APRN [facility] [place] [address] [place] [address] Referral ID Status Reason Start Date Expiration Date V isits Requested Visits Authorized [id number] Closed Specialty Service Requested 06/22/2023 12/23/2024 1 1 Reason for Visit * Diagnostic Test (Routine) - Closed Specialty Diagnoses / Procedures Referred By Contac t Referred To Contact Radiology Diagnoses Right internal carotid artery aneurysm Procedures MRI Angiogram Head wo Contrast (Generic) Gricel Stoddard APRN [facility] [place] [address] [place] [address] Referral ID Status Reason Start Date Expiration Date V isits Requested Visits Authorized [id number] Closed Specialty Service Requested 06/22/2023 12/23/2024 1 1 Encounter Details Date Type Department Care Team (Latest Contact Info) Description 01/24/2024 8:15 AM EDT - 01/24/2024 11:59 PM EDT Hospital Encounter MRI at [facility] [place] [address] Gricel Stoddard, TOSHIA [facility] [place] [phone] Right internal carotid artery aneurysm Discharge Disposition: Home Social History Tobacco Use Types Packs/Day Years [...] AM EDT documented as of this encounter Medications at Time of Discharge Medication Sig Dispensed Refills Start Date End Date albuteroL 90 mcg/actuation HFA Aerosol Inhaler Inhale 2 puffs into the lungs 4 times daily. 01/08/2024 metFORMIN (Glucophage) 500 mg tablet Take 1 tablet by mouth 2 times daily. 11/30/2023 ALPRAZolam (Xanax XR) 0.5 mg ER 24 hr tablet Take 0.5 mg by mouth nightly. 01/10/2024 pregabalin (Lyrica) 200 mg capsule Take 1 capsule by mouth 2 times daily. 01/19/2024 aspirin EC 81 mg EC (DR) tablet Take 81 mg by mouth daily. 06/12/2023 cariprazine (Vraylar) 1.5 mg capsule Take 1.5 mg by mouth daily. 06/12/2023 OLANZapine (ZyPREXA) 15 mg tablet Take 15 mg by mouth nightly. 03/16/2023 ferrous sulfate (FeroSul) 325 mg (65 mg iron) tablet Take 325 mg by mouth every other day. 06/12/2023 CALCIUM ORAL Take 1 tablet by mouth daily. cloZAPine (Clozaril) 100 mg Tablet 10/24/2022 OLANZapine (ZyPREXA) 10 mg Tablet Take 10 mg by mouth daily. 09/10/2022 ALPRAZolam (Xanax) 1 mg Tablet Take 1 mg by mouth daily. Extended release acetaminophen (Tylenol) 500 mg Tablet Take 2 tablets by mouth every 6 hours as needed for Pain (mild pain (1-3)). 30 tablet 1 04/05/2022 pregabalin (LYRICA) 150 mg Capsule Take 150 mg by mouth 2 times daily. 03/01/2022 propranoloL (Inderal) 10 mg TabletIndications:Subclini joyce hyperthyroidism TAKE ONE TABLET BY MOUTH TWO TIMES DAILY NEEDED (FOR PALPITATIONS). 60 tablet 1 01/01/2021 pantoprazole EC (Protonix) 40 mg Tablet, Delayed Release (E.C.) Take 40 mg by mouth daily. cariprazine (Vraylar) 1.5 mg Capsule Take 1.5 mg by mouth nightly. topiramate (Topamax) 100 mg Tablet Take 100 mg by mouth nightly. VIIBRYD 40 mg Tablet TAKE 1 TABLET BY MOUTH ONCE DAILY 3 05/07/2019 ALPRAZolam (XANAX) 1 mg Tablet Take 1 mg by mouth as needed. 05/18/2019 OLANZapine (ZYPREXA) 5 mg Tablet Take 10 mg by mouth nightly. 05/28/2019 documented as of this encounter Plan of Treatment Upcoming Encounters Date Type Department Care Team (Late st Contact Info) Description 01/24/2025 9:00 AM EDT TH Visit (TeleHealth) [place] [address] Gricel Stoddard APRN [facility] [place] [address] documented as of this encounter Procedures Procedure Name Priority Date/Time Associated Diagnosis Comments MRI HEAD ANGIOGRAM WO CONTRAST Routine 01/24/2024 9:15 AM EDT Right internal carotid artery aneurysm documented in this encounter Results * MRI Angiogram Head wo Contrast (Generic) (01/24/2024 9:15 AM EDT) Anatomical Region Laterality Modality Head Magnetic Resonan ce Impressions 01/24/2024 3:20 PM EDT 1. ??No evidence of recurrent right supraclinoid carotid artery aneurysm and no evidence of in-stent stenosis. 2. ??Stable 2 mm aneurysm along the anterior inferior aspect of the right carotid terminus. Thank you for letting us participate in the care of this patient. ??If you are a health care provider and have any questions regarding this report, please contact the number below. ??For patients who have questions please contact the health healthcare applications analyst that requested your imaging first. ? Narrative 01/24/2024 3:20 PM EDT EXAMINATION: MRI ANGIOGRAM HEAD WO CONTRAST (GENERIC) CLINICAL HISTORY: Cerebral aneurysm, follow-up DERRICK pipeline stent aneurysm, eval for change I67.1, Cerebral aneurysm, nonruptured TECHNIQUE: MRA of the head performed without contrast. 3-D MIP reconstructions were created. COMPARISON: MRA head 06/22/2023 FINDINGS: Subtle susceptibility artifact from known pipeline stent extending from the distal cavernous segment to the distal supraclinoid segment of the right internal carotid artery with no evidence of in-stent stenosis. No evidence of recurrent filling of the supraclinoid right internal carotid artery aneurysm. Stable 2 mm outpouching along the anterior inferior aspect of the right carotid terminus. 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 No vascular malformation, significant arterial stenosis, arterial cut off, or other significant arterial abnormality. Procedure Note Soy Lopez MD - 01/24/2024 EXAMINATION: MRI ANGIOGRAM HEAD WO CONTRAST (GENERIC) CLINICAL HISTORY: Cerebral aneurysm, follow-up DERRICK pipeline stent aneurysm, eval for change I67.1, Cerebral aneurysm, nonruptured TECHNIQUE: MRA of the head performed without contrast. 3-D MIP reconstructions were created. COMPARISON: MRA head 06/22/2023 FINDINGS: Subtle susceptibility artifact from known pipeline stent extending fromthe distal cavernous segment to the distal supraclinoid segment of the right internal carotid artery with no evidence of in-stent stenosis. No evidenceof recurrent filling of the supraclinoid right internal carotid arteryaneurysm. Stable 2 mm outpouching along the anterior inferior aspect of the rightcarotid terminus. 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 No vascular malformation, significant arterial stenosis, arterial cut off,or other significant arterial abnormality. IMPRESSION 1. No evidence of recurrent right supraclinoid carotid artery aneurysmand no evidence of in-stent stenosis. 2. Stable 2 mm aneurysm along the anterior inferior aspect of the rightcarotid terminus. Thank you for letting us participate in the care of this patient. If youare a health care provider and have any questions regarding this report,please contact the number below. For patients who have questions please contactthe health healthcare applications analyst that requested your imaging first. Gricel Stoddard APRN IM MRI ORDERABLES documented in this encounter Visit Diagnoses Diagnosis Right internal carotid artery aneurysm Cerebral aneurysm, nonruptured documented in this encounter Care Teams Regional Sales Leader Relationship Specialty Start Date End Date Malgorzata Orellana APRN [address] [place] [address] PCP - General Internal Medicine 06/22/23 documented as of this encounter
--- OUTSIDE RECORDS SUMMARY | 2024-07-30 16:32 | XMS_ITS | Encounter Summary ---
Author Organization [place] [address] Care Team Providers Care Check Viewer Name Role Phone Malgorzata Orellana APRN Primary Care Provider Reason for Referral * Consultation (Routine) - Authorized Specialty Diagnoses / Procedures Referred By Jennifer t Referred To Contact Gastroenterology Diagnoses Bloating Early satiety Mable Pacheco PA [facility] [place] [address] [address] Referral ID Status Reason Start Date Expiration Date Visits Requested Visits Authorized [id number] Authorized Continuity of Care 07/23/2024 07/23/2025 1 1 Reason for Visit * Consultation (Routine) - Authorized Specialty Diagnoses / Procedures Referred By Contac t Referred To Contact Gastroenterology Diagnoses Gastroparesis Gastroparesis (ROGER to motility kandi) Elizabeth Fletcher APRN [address] [place] [address] [facility] [address] [place] [id number] Referral ID Status Reason Start Date Expiration Date Visits Requested Visits Authorized [id number] Authorized Consult, Test & Treat PCP Updated and/or Approved 06/06/2024 06/06/2025 6 6 Encounter Details Date Type Department Care Team (Late st Contact Info) Description 07/23/2024 9:00 AM EDT TH Visit (TeleHealth) [place] [address] Mable Pacheco PA [facility] [place] [address] Bloating; Early satiety Social History Tobacco Use Types Packs/Day Years [...] as of this encounter Progress Notes * Mable Pacheco PA - 07/23/2024 9:00 AM EDT GASTROENTEROLOGY TELEHEALTH PROGRAM - NEW PATIENT VISIT Chief Complaint: Franchesca Dickson is a 48 y.o. patient referred for consultation by Dr. Fletcher for delayed gastric emptying History of Present Illness: Patient previously seen by Daphnie Sabillon for bloating She is now being seen for delayed gastric emptying She had a GES at an outside institution which was reported as abnormal, though we do not have the reference ranges She notes early satiety and bloating She has tried xifaxan in the past - she is not sure if that helped She is not a diabetic - she is on metformin for weight loss She has lost some weight- approx 10lbs She takes motrin once per day She has several loose bowel movements per day 05/20/22 EGD Impression: - Normal esophagus. Biopsied. - Z-line regular, 36 cm from the incisors. - Normal stomach. Biopsied. - Normal examined duodenum. Biopsied. Colonoscopy Impression: - The entire examined colon is normal. Biopsied. - The examined portion of the ileum was normal. - Internal hemorrhoids. - Diverticulosis in the sigmoid colon. Medications: albuteroL 90 mcg/actuation HFA Aerosol Inhaler metFORMIN (Glucophage) 500 mg tablet ALPRAZolam (Xanax XR) 0.5 mg ER 24 hr tablet pregabalin (Lyrica) 200 mg capsule propranoloL (Inderal) 20 mg tablet aspirin EC 81 mg EC (DR) tablet cariprazine (Vraylar) 1.5 mg capsule OLANZapine (ZyPREXA) 15 mg tablet ferrous sulfate (FeroSul) 325 mg (65 mg iron) tablet CALCIUM ORAL cloZAPine (Clozaril) 100 mg Tablet OLANZapine (ZyPREXA) 10 mg Tablet ALPRAZolam (Xanax) 1 mg Tablet acetaminophen (Tylenol) 500 mg Tablet pregabalin (LYRICA) 150 mg Capsule propranoloL (Inderal) 10 mg Tablet pantoprazole EC (Protonix) 40 mg Tablet, Delayed Release (E.C.) cariprazine (Vraylar) 1.5 mg Capsule topiramate (Topamax) 100 mg Tablet VIIBRYD 40 mg Tablet ALPRAZolam (XANAX) 1 mg Tablet OLANZapine (ZYPREXA) 5 mg Tablet Allergies: is allergic to clonazepam, erythromycin base, paroxetine, shellfish containing products,shellfish derived, erythromycin, paroxetine hcl, sulfa (sulfonamide antibiotics), sulfur, and tree nut. Past Medical History: has no past medical history on file. Past Surgical History: has a past surgical history that includes created by interface; PATRIZIA Arteriogram Cerebral (01/28/2022); Perm Occlusion/Embolization, Percut, Industrial Illuminating Engineer ([id number]) (N/A, 04/04/2022); PATRIZIA Embolization Cerebral (04/04/2022); Upper Gi Endoscopy, Biopsy ([id number]) (N/A, 05/20/2022); Colonoscopy, Biopsy ([id number]) (N/A, 05/20/2022); and PATRIZIA Arteriogram Cerebral (11/21/2022). Family History: family history is not on file. denies family history of colon cancer, IBD, or celiac disease in mother father or other family members Social History: reports that she has been smoking cigarettes. She has never used smokeless tobacco.She reports current alcohol use of about 7.0 standard drinks of alcohol per week. She reports current drug use. Frequency: 7.00 times per week. Drug: Marijuana. Assessment/Plan: 48-year-old female seen in follow-up for delayed gastric emptying diagnosed at an outside institution. She reports early satiety and bloating. She has been seen in the past for the symptoms as well. She is up-to-date with endoscopic evaluation. She tells me she has tried many of my recommendations before but is willing to see a dietitian again. We again discussed neuromodulators which was discussed with her at her last visit with my colleague. She does not believe she has tried this approach yet. She understands this would be prescribed to her primary care provider if deemed medically appropriate. We also discussed polypharmacy as a contributing factor and she will discuss this with her PCP/prescribing providers. Therapeutics: -Avoid NSAIDs -Recommend referral to estate planning paralegal -Begin Benefiber daily: start at 1/2 dose x2 weeks, then slowly increase to full dose. This will increase bloating at first -consider peppermint capsules vs dicyclomine 10mg QID PRN -To be managed and prescribed by PCP: neuromodulator therapy (to be tried for at least 90 days before adjusting dose or moving to next agent, titrate dose as needed for patient response) Step 1 Mirtazapine, start at 7.5mg qHS Step 2 Desipramine, start at 10mg qHS Step 3 Buspirone, start at 10mg daily -Consider discussing polypharmacy with PCP and/or pharmacist -I would not recommend prokinetics due to adverse effects -We do not offer G Poem or gastric pacers here at [facility] [place] [address] documented in this encounter Plan of Treatment Upcoming Encounters Date Type Department Care Team (Late st Contact Info) Description 01/24/2025 9:00 AM EDT TH Visit (TeleHealth) Neurosurgery at [facility] [place] [address] Gricel Stoddard APRN [facility] [place] [address] Scheduled Referrals Name Type Priority Associated Diagnoses Orde r Schedule Referral to Nutrition Services Outpatient Referral Routine Bloating Early satiety Ordered: 07/23/2024 documented as of this encounter Visit Diagnoses Diagnosis Bloating Flatulence, eructation, and gas pain Early satiety documented in this encounter Care Teams Check Viewer Relationship Specialty Start Date End Date Malgorzata Orellana APRN [address] [facility] [place] [address] PCP - General Internal Medicine 06/22/23 documented as of this encounter
--- OUTSIDE RECORDS SUMMARY | 2024-07-30 16:32 | XMS_ITS | Encounter Summary ---
Author Organization [facility] [place] [address] Care Team Providers Care Head Tennis Coach Name Role Phone Malgorzata Orellana APRN Primary Care Provider [phone] Encounter Details Date Type Department Care Team (Late st Contact Info) Description 06/22/2023 [place] [id number] Gricel Stoddard APRN [facility] [place] [address] Social History Tobacco Use Types Packs/Day Years [...] AM EDT documented as of this encounter Miscellaneous Notes * Telephone Encounter - Monica Butcher Bernarda - 06/22/2023 11:05 AM EDT 7 mo recall entered in edh ----- Message from Gricel Stoddard APRN sent at 06/22/2023 10:17 AM EDT ----- 7 mos MRA head/OV or telehealth with AP documented in this encounter Plan of Treatment Upcoming Encounters Date Type Department Care Team (Late st Contact Info) Description 01/24/2025 9:00 AM EDT TH Visit (TeleHealth) [place] [address] Gricel Stoddard APRN [facility] [place] [address] documented as of this encounter Visit Diagnoses Not on filedocumented in this encounter Care Teams Head Tennis Coach Relationship Specialty Start Date End Date Malgorzata Orellana APRN [address] [facility] [place] [address] PCP - General Internal Medicine 06/22/23 documented as of this encounter
--- OUTSIDE RECORDS SUMMARY | 2024-07-30 16:32 | XMS_ITS | Encounter Summary ---
[place] [address] Care Team Providers Care Consumer Affairs Director Name Role Phone Unavailable Primary Care Provider Unavailabl e Reason for Referral * Consultation (Routine) - Closed Specialty Diagnoses / Procedures Referred By Jennifer guillen Referred To Contact Neurology Diagnoses Migraine without aura, not intractable, without status migrainosus Other fatigue Other amnesia Restless legs syndrome Aneurysm of carotid artery Malgorzata Orellana APRN [address] [place] [address] [facility] [address] [place] [phone] Referral ID Status Reason Start Date Expiration Date V isits Requested Visits Authorized [id number] Closed Consult, Test & Treat PCP Updated and/or Approved 06/12/2023 12/13/2023 6 6 Encounter Details Date Type Department Care Team (Latest Contact Info) Description 06/21/2023 Transcribe Orders eDH Incoming Referrals [phone] Malgorzata Orellana APRN [address] [place], [place] [id number] Routine general medical examination at a health care facility Social History Tobacco Use Types Packs/Day Years Used Date Smoking Tobacco: Every Day Cigarettes Smokeless Tobacco: Never Alcohol Use Standard Drinks/Week Comments Yes 7 (1 standard drink = 0.6 oz pur e alcohol) Sex and Gender Information Value Date Recorded Sex Assigned at Female 12/12/2021 11:37 AM EST Gender Identity Female 11/16/2020 12:55 PM EST Sexual Orientation Straight 02/09/2022 11 :36 AM EDT documented as of this encounter Plan of Treatment Upcoming Encounters Date Type Department Care Team (Late st Contact Info) Description 01/24/2025 9:00 AM EDT TH Visit (TeleHealth) [place] [address] Gricel Stoddard APRN [facility] [address] Scheduled Referrals Name Type Priority Associated Diagnoses Orde r Schedule Referral to Neurology Outpatient Referral Routine Routine general medical examination at a health care facility Ordered: 06/21/2023 documented as of this encounter Visit Diagnoses Diagnosis Routine general medical examination at a health care facility documented in this encounter
--- OUTSIDE RECORDS SUMMARY | 2024-07-30 16:32 | XMS_ITS | Encounter Summary ---
[place] [address] Care Team Providers Care Material Lister Name Role Phone Malgorzata Orellana APRN Primary Care Provider [phone] Encounter Details Date Type Department Care Team (Latest Contact Info) Description 01/17/2024 Travel Social History Tobacco Use Types Packs/Day [...] AM EDT TH Visit (TeleHealth) [place] [address] Gricel Stoddard APRN [facility] [place] [address] documented as of this encounter Visit Diagnoses Not on filedocumented in this encounter Care Teams Material Lister Relationship Specialty Start Date End Date Malgorzata Orellana, NUCLEAR TECHNOLOGIST [address] [place] [address] PCP - General Internal Medicine 06/22/23 documented as of this encounter
--- OUTSIDE RECORDS SUMMARY | 2024-07-30 16:32 | XMS_ITS | Encounter Summary ---
[place] [address] Care Team Providers Care Television Anchor Name Role Phone Luz Odalys TOSHIA Primary Care Provider [phone] Encounter Details Date Type Department Care Team (Late st Contact Info) Description 01/04/2023 Telephone [place] [address] Amelia Llanos Social History Tobacco Use Types Packs/Day Years [...] encounter Miscellaneous Notes * Telephone Encounter - Amelia Llanos - 01/05/2023 9:51 AM EST Scheduled with JACOBY Pacheco on 04/21 * Telephone Encounter - Amelia Llanos - 01/04/2023 4:44 PM EST Left message for patient to contact the office for scheduling. LLOYD Sabillon would like the patient scheduled for a ROGER with any Motility Provider. documented in this encounter Plan of Treatment Upcoming Encounters Date Type Department Care Team (Late st Contact Info) Description 01/24/2025 9:00 AM EDT TH Visit (TeleHealth) [place] [address] Gricel Stoddard APRN [facility] [place] [address] documented as of this encounter Visit Diagnoses Not on filedocumented in this encounter Care Teams Television Anchor Relationship Specialty Start Date End Date Odalys Escobar APRN [address] [place] [address] PCP - General Family Medicine 11/26/20 02/22/23 documented as of this encounter
--- OUTSIDE RECORDS SUMMARY | 2024-07-30 16:32 | XMS_ITS | Clinical Summary ---
Author Organization [facility] [place] [address] Care Team Providers Care Laminator Preforms Name Role Phone Malgorzata Orellana APRN Primary Care Provider Allergies Active Allergy Reactions Criticality Noted Date Comments Clonazepam High 06/12/2023 Other Reaction(s): palpatations, shakey Erythromycin 10/01/2018 Erythromycin Base High 06/12/2023 CIS - Nausea/Vomiting Other Reaction(s): Hives, Vomitting Paroxetine High 06/12/2023 Other Reaction(s): Ineffective- Suicide attempt Paroxetine Hcl CIS - PALPITATIONS, INSOMNIA Shellfish Containing Products Anaphylaxis High 01/28/2022 Per pt, she has received contrast dye in CT with no adverse reactions Shellfish Derived Anaphylaxis High 06/12/2023 Sulfa (Sulfonamide Antibiotics) CIS - Hives Sulfur 10/01/2018 Tree Nut Rash 06/03/2019 Medications Medication Sig Dispensed Refills Start Date End Date Status [id number] 40 mg Tablet TAKE 1 TABLET BY MOUTH ONCE DAILY 3 05/07/2019 Active ALPRAZolam (XANAX) 1 mg Tablet Take 1 mg by mouth as needed. 05/18/2019 Active OLANZapine (ZYPREXA) 5 mg Tablet Take 10 mg by mouth nightly. 05/28/2019 Active cariprazine (Vraylar) 1.5 mg Capsule Take 1.5 mg by mouth nightly. Active topiramate (Topamax) 100 mg Tablet Take 100 mg by mouth nightly. Active pantoprazole EC (Protonix) 40 mg Tablet, Delayed Release (E.C.) Take 40 mg by mouth daily. Active propranoloL (Inderal) 10 mg TabletIndications:Sub clinical hyperthyroidism TAKE ONE TABLET BY MOUTH TWO TIMES DAILY NEEDED (FOR PALPITATIONS). 60 tablet 1 01/01/2021 Active Additional Information Patient not taking.Reported on 02/01/2024 pregabalin (LYRICA) 150 mg Capsule Take 150 mg by mouth 2 times daily. 03/01/2022 Active acetaminophen (Tylenol) 500 mg Tablet Take 2 tablets by mouth every 6 hours as needed for Pain (mild pain (1-3)). 30 tablet 1 04/05/2022 Active Additional Information Patient not taking.Reported on 06/22/2023 ALPRAZolam (Xanax) 1 mg Tablet Take 1 mg by mouth daily. Extended release Active cloZAPine (Clozaril) 100 mg Tablet 10/24/2022 Active OLANZapine (ZyPREXA) 10 mg Tablet Take 10 mg by mouth daily. 09/10/2022 Active aspirin EC 81 mg EC (DR) tablet Take 81 mg by mouth daily. 06/12/2023 Active cariprazine (Vraylar) 1.5 mg capsule Take 1.5 mg by mouth daily. 06/12/2023 Active OLANZapine (ZyPREXA) 15 mg tablet Take 15 mg by mouth nightly. 03/16/2023 Active ferrous sulfate (FeroSul) 325 mg (65 mg iron) tablet Take 325 mg by mouth every other day. 06/12/2023 Active CALCIUM ORAL Take 1 tablet by mouth daily. Active albuteroL 90 mcg/actuation HFA Aerosol Inhaler Inhale 2 puffs into the lungs 4 times daily. 01/08/2024 Active metFORMIN (Glucophage) 500 mg tablet Take 1 tablet by mouth 2 times daily. 11/30/2023 Active ALPRAZolam (Xanax XR) 0.5 mg ER 24 hr tablet Take 0.5 mg by mouth nightly. 01/10/2024 Active pregabalin (Lyrica) 200 mg capsule Take 1 capsule by mouth 2 times daily. 01/19/2024 Active propranoloL (Inderal) 20 mg tablet Take 20 mg by mouth as needed. Active Active Problems Problem Noted Date Diagnosed Date Right internal carotid artery aneurysm 2 Overview (02/07/2024): CTA head (11/08/2021) - right paraclinoid ICA aneurysm measuring 7 mm in largest dimension extending intradurally. Incidental finding. Additional 2mm inferiorly projection DERRICK aneurysm followed with observation. 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 Bloom. 11/21/22 angiogram: Aneurysm excluded from circulation, stent endothelialized. Stopped Plavix, continue aSA 81mg. Mother with cerebral aneurysms, discussed family screening 06/2023. Assessment & Plan (02/07/2024 3:50 PM EDT): No change in treated and remaining small aneurysm. Continue ASA 81mg. Because of family history, age, and smoking, will continue with annual surveillance. Suggested that she discuss change in headache medications and/or referral to neurologist locally for additional management of headaches. Discussed symptoms of SAH and potential distinction from migraine headaches. Assessment & Plan (06/22/2023 10:14 AM EDT): Stent assisted treatment of aneurysm without evidence of recurrence. Will continue with q 6 month MRA until 2 years post treatment, then annual MRA x 3 years. Advised of recommendation for sibling and her adult children to have aneurysm screening. Continue ASA 81mg, may stop briefly for procedures as indicated. Bipolar disorder 05/28/2020 Restless leg syndrome 05/28/2020 Persistent depressive disorder 10/01/2018 CIS - subclinical hyperthyroidism 2006 Overview (01/18/2011): Lab (04/19): TSH = 0.16 -> 0.27 [...] - Knee arthritis CIS - Obesity Overview (01/18/2011): Wt = 171 lbs (03/13/09) with PCP Resolved Problems Problem Noted Date Diagnosed Date Resolved Date Aneurysm 04/04/2022 05/13/2022 Encounters Date Type Department Care Team Description 07/23/2024 9:00 AM EDT TH Visit (TeleHealth) [place] [address] Mable Pacheco PA Bloating; Early satiety 06/19/2024 Transcribe Orders eDH Incoming Referrals [phone] Elizabeth Fletcher APRN Gastroparesis from Last 3 Months Immunizations Name Administration Dates Next Due Covid-19 Monovalent (Moderna Spikevax) 12yrs+ ([id number]) 04/13/2021,03/16/2021 TD Adult 11/16/2005 Social History Tobacco Use Types Packs/Day Years Used Date Smoking Tobacco: Every Day Cigarettes Smokeless Tobacco: Never Tobacco Cessation:Ready to Q uit: Not Asked; Counseling Given: Not Answered Alcohol Use Standard Drinks/Week Comments Yes 7 (1 standard drink = 0.6 oz pur e alcohol) 1 can of beer a night Sex and Gender Information Value Date Recorded Sex Assigned at Female 12/12/2021 11:37 AM EST Gender Identity Female 11/16/2020 12:55 PM EST Sexual Orientation Straight 02/09/2022 11 :36 AM EDT Last Filed Vital Signs Vital Sign Reading Time Taken Comments Blood Pressure 106/66 06/22/2023 9:51 AM EDT Pulse 65 06/22/2023 9:51 AM EDT Temperature 36.1 ??C (97 ??F) 06/22/2023 9:51 AM EDT Respiratory Rate 16 06/22/2023 9:51 AM EDT Oxygen Saturation 94% 06/22/2023 9:51 AM EDT Inhaled Oxygen Concentration - - Weight 71.2 kg (157 lb) 06/22/2023 9:51 AM EDT Height 162.6 cm (5' 4) 06/22/2023 9:51 AM EDT Body Mass Index 26.95 06/22/2023 9:51 AM EDT Plan of Treatment Upcoming Encounters Date Type Department Care Team (Late st Contact Info) Description 01/24/2025 9:00 AM EDT TH Visit (TeleHealth) [place] [address] Gricel Stoddard APRN [facility] [place] [address] Health Maintenance Due Date Last Done Comments CT Colonography 1976 FIT DNA 1976 FIT 1976 Sigmoidoscopy 1976 Pneumococcal Vaccine: At-Ris k 5-64yrs (1 of 2 - PCV) 1982 HIV screen 1994 Hepatitis C Screening 1994 Lipid Screening 1994 Hepatitis B vaccine (0-59 yrs) (1) 1995 Tdap adult 1995 HPV test 2006 PAP Smear 2006 Tetanus vaccine 11/16/2015 11/16/2005 Breast Cancer Share Decision Needed 2016 Breast Cancer screening 2016 Covid-19 Vaccine ( season) 07/14/202411/2020, 03/16/2021 Influenza (Flu) vaccine (1 o f 1 - Influenza standard series) 07/14/2024 Diabetes Screening (HgbA1C or Glucose) 01/28/2025 Colonoscopy 05/20/2032 05/20/2022, 05/20/2022 Colorectal Cancer Screening 05/20/2032 Sigmoidoscopy (10 year) with FIT yearly 05/20/2032 0 05/20/2022, 05/20/2022 Medical Devices Implanted Type Area Rivet Driver Device Identifier Shelf Expiration Date Model / Serial / Lot Embo Flow Diverter Pipeline Cocr Non Coated Coil Implanted:Qty: 1 on 04/04/2022 by Sary Bloom MD Coil N/A: [employer] [facility] - [employer] 12/03/2023 [id number] / / [id number] Description:Right paraclinoi d ICA aneurysm LOG [id number] Procedures Procedure Name Priority Date/Time Associated Diagnosis Comments DIAGNOSTIC RADIOLOGY SCAN 06/04/2024 12:00 AM EDT COLONOSCOPY Routine 05/20/2022 9:12 AM EDT BASIC METABOLIC PANEL Routine 01/28/2022 7:59 AM EDT Right internal carotid artery aneurysm from Last 3 Months or Most Recently Relevant to Health Maintenance Results * Scan Doc: Diagnostic Radiology (06/04/2024 12:00 AM EDT) Anatomical Region Laterality Modality Other Narrative 06/04/2024 12:00 AM EDT Ordered by an unspecified provider. Scanning Provider MEDIA MGR SCAN EXT O RDR/RSLT * COLONOSCOPY (05/20/2022 9:12 AM EDT) COLONOSCOPY [facility] Endoscopy Procedure Date: 05/20/2022 9:12 AM ? Patient Name: Franchesca Dickson ? Date of : 1975 ? Age: 46 ? Order #: [id number] ? Instrument Name: [id number] ? Procedure: ? Colonoscopy Indications: ? Abdominal pain and diarrhea Providers: ? Subhash Luna MD, Victor M Merino ? CHANTELLE Delgado, Stormy Hernandez MD: ?Odalys Coleman Medicines: ? See the Anesthesia note for ? documentation of the administered ? medications Complications: ? No immediate complications. Procedure: ? The procedure, indications, ? benefits, risks and alternatives ? were explained to the patient. ? Specifically discussed were ? potential complications including, ? but not limited to, bleeding, ? perforation, infection, missing a ? cancer, and adverse medication ? reactions. The patient was placed ? in the left lateral decubitus ? position, and a digital rectal exam ? was performed. The Colonoscope was ? inserted in the anus and under ? direct visualization, advanced to ? the terminal ileum. Careful ? inspection was made as the ? colonoscope was withdrawn. The ? colonoscopy was performed without ? difficulty. The patient tolerated ? the procedure well. The quality of ? the bowel preparation was evaluated ? using the BBPS ([place] Bowel ? Preparation Scale) with scores of: ? Right Colon = 3, Transverse Colon = ? 3 and Left Colon = 3 (entire mucosa ? seen well with no residual ? staining, small fragments of stool ? or opaque liquid). The total BBPS ? score equals 9. Scope withdrawal ? time was 10 minutes. ? Findings: [...] Internal hemorrhoids. ? - Diverticulosis in the sigmoid ? colon. Recommendation: ?- Await pathology results. ? Attending Participation: ? I personally performed the entire procedure. ? _ Subhash Luna MD 05/20/2022 9:54:37 AM This report has been signed electronically. Number of Addenda: 0 Note Initiated On: 05/20/2022 9:12 AM PROVATION 05/20/2022 9:12 AM EDT Odalys Escobar APRN GENERAL SURGICAL ORD ERABLES PROVATION * (ABNORMAL) Basic Metabolic Panel (non-fasting) (01/28/2022 7:59 AM EDT) Glucose 116 65 - 199 mg/dL [facility] Comment:Diabetes: >=200 mg/d L plus symptoms Blood Urea Nitrogen 18 8 - 18 mg/dL [facility] Creatinine 0.84 0.70 - 1.20 mg/dL [facility] Sodium 142 135 - 145 mmol/L [facility] Potassium 4.1 3.5 - 5.0 mmol/L [facility] Comment: Please note: ??Patients with WBC >100,000 may have falsely elevated Potassium levels. ??For accurate Potassium quantification in these patients send serum separator tube (gold top) for subsequent determinations. ??Contact the Clinical Chemistry Laboratory if there are any questions. Chloride 109(H) 98 - 107 mmol/L [facility] Carbon Dioxide 21(L) 22 - 31 mmol/L [facility] Anion Gap 12 5 - 15 mmol/L [facility] Calcium 9.0 8.5 - 10.5 mg/dL [facility] Est Glomerular Filtration Rate 84 >=60 mL/min/1. 73 m?? [facility] Comment: This patient? s estimated glomerular filtration rate (eGFR) is between 84 mL/min/1.73 m2 (patients with less muscle mass) and 97 mL/min/1.73 m2 (patients with more muscle mass) as determined by the CKD-EPI equation. Assessment of eGFR is not appropriate when creatinine concentrations are rapidly changing. For clinical decisions where creatinine clearance will affect therapy, a 24-hour urine creatinine clearance may be advised. Assignment of CKD stage 1 - 5 for patients with an eGFR near the transition point between stages may be based on clinical assessment of muscle mass and symptoms in addition to eGFR. Blood 01/28/2022 7:59 AM EDT 01/28/2022 8:17 AM EDT Narrative Resulting Agency Comment Spec In Lab Gricel Stoddard MOVING PICTURE PRODUCER CHEMISTRY ORDERABLES [facility] [place] [address] from Last 3 Months or Most Recently Relevant to Health Maintenance Advance Directives * Attempt Cardiopulmonary Resuscitation - Inpatient (Latest Code Status on File) Date Activated Date Inactivated Comments 11/21/2022 11:39 AM 11/22/2022 4:34 AM Question Answer Comments Code Status decision made by: Patient * Attempt Cardiopulmonary Resuscitation - Inpatient Date Activated Date Inactivated Comments 04/04/2022 3:54 PM 04/05/2022 3:52 PM Question Answer Comments Code Status decision made by: Patient * Attempt Cardiopulmonary Resuscitation - Inpatient Date Activated Date Inactivated Comments 04/04/2022 11:35 AM 04/04/2022 3:54 PM Question Answer Comments Code Status decision made by: Patient * Attempt Cardiopulmonary Resuscitation - Inpatient Date Activated Date Inactivated Comments 01/28/2022 10:18 AM 01/29/2022 4:38 AM Question Answer Comments Code Status decision made by: Patient Care Teams Laminator Preforms Relationship Specialty Start Date End Date Malgorzata Orellana APRN [address] [place] [address] PCP - General Internal Medicine 06/22/23
--- OUTSIDE RECORDS SUMMARY | 2024-07-30 16:32 | XMS_ITS | Continuity of Care Document ---
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 Name Role Phone ASHLEY DESAI, FRANSICO Yeung Primary Care Physician [phone] Encounter [facility]TT[facility]_HI FIN NBR [id number] Date(s): 06/04/24 - 06/04/[address] [address] [place] Discharge Disposition: Home or Self Care Attending Physician: Elizabeth Fletcher APRN Admitting Physician: Elizabeth Fletcher APRN Referring Physician: Elizabeth Fletcher APRN Allergies, Adverse Reactions, Alerts Substance Reaction Severity Status erythromycin Wheal Unknown Active doxepin dizziness Unknown Active shellfish Anaphylaxis Severe Active sulfa drugs Unknown Active Influenza Virus Vaccine Unknown Unknown Acti ve metroNIDAZOLE stomach upset Unknown Active clonazePAM nervousness/agitation Unknown Active PARoxetine suicide atempt Severe Active Latex Unknown Unknown Active Walnuts Eruption Unknown Active Assessment and Plan Future Appointments Medications ALPRAZolam 1 mg oral tablet 1 [...] bed, # 120 cap, 1 Refill(s), Pharmacy: [facility], 152.4, cm, 01/30/24 9:43:00 EDT, Height, 74.6, kg, 01/30/24 9:46:00 EDT, Weight Dosing Start Date: 01/30/24 Stop Date: 03/30/24 Status: Ordered ferrous sulfate 325 mg (65 [...] nausea., # 90 tab, 1 Refill(s), Pharmacy: [facility], 152.4, cm, 01/30/24 9:43:00 EDT, Height, 74.6, kg, 01/30/24 9:46:00 EDT, Weight Dosing Start Date: 01/30/24 Stop Date: 03/30/24 Status: Ordered pantoprazole 40 mg oral delayed release tablet See Instructions, TAKE 1 TABLET 30 MINUTES BEFORE BREAKFAST AND EVENING MEAL, # 60 tab, 1 Refill(s), Pharmacy: [id number] Start Date: 09/15/22 Status: Ordered propranolol [...] Confirmed Active Gastroesophageal reflux disease Confirmed Active Headache Confirmed Active Hx of [...] Date Related Diagnosis Body Site Status Colonoscopy 08/23/20 Completed EGD - esophagogastroduodenoscopy 08/23/20 Completed Cholecystectomy; Complete d Right oophorectomy Comple nena Results Radiology Reports * Exam Date Time Procedure Performing Provider Status 06/04/24 3:10 PM NM Gastric Emptying Study Edwin Garcia ey; Auth (Verified) Notes: (MO Gastric Emptying Study) Reason For Exam: early satiety MO Gastric Emptying Study EXAM DESCRIPTION: MO Gastric Emptying Study 06/04/2024 3:10 RADIOPHARM: A nuclear medicine gastric emptying study was performed. Following oral administration of 1 mCi of 99 M technetium sulfur colloid mixed with food, serial images of the stomach region were obtained up to 4 hours post tracer administration. INDICATION: EARLY SATIETY COMPARISON: None. FINDINGS: 100% of administered activity was retained in the stomach at 1 hour post tracer administration, normal 30%-90%. 77% of administered activity was retained in the stomach at 2 hours post tracer administration, normal less than 60% 56% of administered activity was retained in the stomach at 3 hours post tracer administration, normal less than 30%. 47% of administered activity was retained in the stomach at 4 hours post tracer administration, normal less than 10%. Half-time gastric clearance was 215 minutes IMPRESSION: Abnormal study. Findings consistent with delayed gastric emptying as detailed above. JOB #: [id number] Final Signed by: Chun Zarate MD Signed (Electronic Signature): 06/04/2024 3:19 pm Social History Social History Type Response Tobacco Current everyday tob acco user Tobacco Use:. 1 pack a day per day. 21 year(s). Sex Patient Care team information Care Team Personnel Name: FRANSICO RAMIREZ NP Position: No Access Member Role: Primary Care Physician Address: Address: [address] [place] [id number] [place]
--- OUTSIDE RECORDS SUMMARY | 2024-07-30 16:32 | XMS_ITS | Continuity of Care Document ---
Author Organization [facility] Ambulatory Clinics Address [address] [place] [address] Care Team Providers Care Photographic Lithographer Name Role Phone ADJOVU GRADUATE TEACHING ASSISTANT, HONEY Primary Care Physician Encounter [facility] NBR [id number] Date(s): 07/18/24 - 07/18/24 [facility] Ambulatory Clinics [address] [place], [place] [address] Encounter Diagnosis Chronic diarrhea(Discharge Diagnosis) - 07/18/24 Gastroparesis(Discharge Diagnosis) - 07/18/24 Gastroesophageal reflux disease(Discharge Diagnosis) - 07/18/24 IBS (irritable bowel syndrome)(Discharge Diagnosis) - 07/18/24 Discharge Disposition: Home or Self Care Attending Physician: Elizabeth Fletcher APRN Referring Physician: MALGORZATA RAMIREZ NP Allergies, Adverse Reactions, Alerts Substance Criticality Severity Reaction Reaction Severity Status erythromycin Unable to assess criticality Unknown Wheal Active doxepin Unable to assess criticality Unknown dizziness Active Influenza Virus Vaccine Low criticality Mild Rash Active Latex High criticality Moderate Rash Unknown Active Walnuts Unable to assess criticality Unknown Eruption Active shellfish High criticality Severe Anaphylaxis A ctive sulfa drugs High criticality Moderate Rash A ctive metroNIDAZOLE Unable to assess criticality Unknown stomach upset Active clonazePAM Unable to assess criticality Unknown nervousness/agita tion Active PARoxetine High criticality Severe suicide atempt Active Assessment and Plan Extracted from: Title:Office Visit Note-GI Author:Elizabeth Fletcher APRN Date:07/18/24 1.??Chronic diarrhea??K52.9 ??Colonoscopy showed no signs of colitis on segmental biopsies.?? Colonoscopy was done for??chronic diarrhea and calprotectin of 215.?? She had 1 tubular adenoma. ??Repeat colonoscopy in 5 years for colon cancer screening.?? Symptoms are likely functional in nature. ??Could benefit from medication for neuromodulation with a tricyclic antidepressant such as amitriptyline, nortriptyline at 10 to 25 mg daily??or Cymbalta??starting at 30 mg daily. ??She sees a psychiatrist.?? Will defer??management of these medications??to her psychiatrist.?? Patient is okay with me sending??today's note to them??to consider these medications.?? She tried Questran powder in the past??however it caused her to vomit. 2.??Gastroparesis??K31.84 ??Patient was found to have gastroparesis??on gastric emptying scan. ??She has been referred to [facility]??for further evaluation and treatment. ??She has an appointment next week.?? Encouraged to avoid fatty foods??and??complex carbohydrates as they are harder??and take longer to digest.?? Handout was given to the patient.?? Encourage patient to eat small frequent meals instead of 1 meal daily.?? Medication such as Topamax??or behavioral??may be playing a part to her gastroparesis. 3.??Gastroesophageal reflux disease??K21.9 ??Improved with pantoprazole 40 mg daily. ??There may be a functional component for benefit from medications for neuromodulation. 4.??IBS (irritable bowel syndrome)??K58.9 ??As above.?? Follow-up as needed. Voice recognition software utilized which may result in minor multi mission helicopter aircrewman error. Functional Status 07/18/24 Other exposure to Infectious Disease Non e Medications ALPRAZolam 1 mg oral tablet [...] bed, # 120 cap, 1 Refill(s), Pharmacy: [id number], 152.4, cm, 05/07/24 15:32:00 EDT, Height, [...] nausea., # 90 tab, 1 Refill(s), Pharmacy: [facility], 152.4, cm, 01/30/24 9:43:00 EDT, Height, 74.6, kg, 01/30/24 9:46:00 EDT, Weight Dosing Start Date: 01/30/24 Stop Date: 03/30/24 Status: Ordered pantoprazole 40 mg oral delayed release tablet See Instructions, TAKE 1 TABLET 30 MINUTES BEFORE BREAKFAST AND EVENING MEAL, # 60 tab, 1 Refill(s), Pharmacy: [facility] Start Date: 09/15/22 Status: Ordered propranolol [...] Most recent to oldest [Reference Range]: 1 Apical Heart Rate [60-100 bpm] 95 bpm (07/18/24 2:52 PM) Blood Pressure [90-140/60-90 mmHg] 108/6 9mmHg (07/18/24 2:52 PM) Mean Arterial Pressure, Cuff [65-140 mmH g] 82 mmHg (07/18/24 2:52 PM) Weight 68.95 kg (07/18/24 2:52 PM) Weight Measured (lbs) 152.009 lb (07/18/24 2:52 PM) Weight Dosing 68.950 kg (07/18/24 2:52 PM) Social History Social History Type Response Tobacco Former tobacco user Tobacco Use:. 1 Sex Sex Representation Female (finding) 1quit 2 months ago Physician Outpatient Note * Elizabeth Fletcher APRN: PERFORM Event Display: Office Clinic Note Physician Authored Date: [id number] ROBERT BACH :1975 Age:48 years Sex:Female Visit Date:07/18/2024 Primary Care Physician: TREVOR DESAI, HONEY Chief Complaint colonoscopy follow up History of Present Illness Patient is a??48-year-old female??here today at the request of Malgorzata Ramirez APRN??with significantmood disorder??and GI complaints.?? Patient has been seen by us in [id number].?? Since??he was referred to [facility]??where she was last seen 2 years ago.?She was told she had IBS and was referred to dietitian??to review a low FODMAP diet??which??she followed which produced no subjective change.?? Patient reports that??she experienced no significant relief??from??previous visits to our practice??or from [facility]. ??She continues to have 6-9 watery nonbloody bowel movements all day including??at least 1 nocturnal bowel movement with nocturnal incontinence.?? She reports nausea and vomiting??withbloating.?? She noted??no change in her diarrhea??since her cholecystectomy,??and diarrhea predateduse of metformin??which she has been on for the last 6 months.?? She denies any change of bowel habits??or??changes in nausea??since starting metformin.?? She continues on pantoprazole??30 minutes before breakfast and supper. ??She has had no recent heartburn or regurgitation. ??She denies difficulty swallowing.?? Use of bile acid sequestrants??in the past caused nausea and vomiting. ?? She takes dicyclomine 10 mg 4 times a day which helps??to some extent??consider having??diarrhea and pain 7 days of the week??it occurs 4 times per week.?She takes at least twice daily??and tries to take it after she eats otherwise she has a large amount of diarrhea. ??Stools are still Cavalier form 5-7 and occur 4- 5 times per day.?She continues to have nausea but states Zofran has helped. ??She also continues to complain of dyspepsia.?? She complains of pyrosis.?? She states she has 1??meal daily where she eats??a portion of meat,??baked potato, pasta??and vegetables.?? She does not eatotherwise. ??She has no appetite. ?? The patient was treated with??colestipol??for??possible bile acid malabsorption??secondary to cholecystectomy.? Imaging: -08/24/2020. ??EGD was??endoscopically normal.?? Biopsies were negative for celiac disease, H. pylori infection.?? -06/04/2024 gastric emptying scan showed delayed gastric emptying. ?? Colonoscopy: -08/22/2020 Random colon biopsies show no evidence of microscopic colitis.?? A 6 mm nonbleeding AVMwas left intact in the sigmoid colon.?? A 2 mm??hyperplastic polyp was removed from the rectum. -03/04/2024 segmental biopsies taken throughout the colon showed no signs of colitis.?? He has a 9??mm??polyp in the ascending colon that was??normal colon mucosa.?? There is a 3 mm descending polyp that was a tubular adenoma. ?? She reports that her father had esophageal cancer at the age of 75??and she has multiple??paternal family members??with??multiple forms of cancer. ??She also reports a??paternal cousin??with gastric cancer in his 20s.?? Review of Systems Pertinent positives and negatives are discussed in HPI. Physical Exam Vitals & Measurements HR:??95??(Apical)?? BP:??108/69?? SpO2:??97%?? WT:??68.95??kg?? General: Well-nourished well-developed??female??in no acute distress. HEENT: Head is normocephalic, trachea midline, and no cervical lymphadenopathy. Respiratory: Respirations are even and unlabored. ??Lungs are clear to auscultation. Cardiovascular: Regular rate and rhythm with S1 and S2. Abdomen: Positive bowel sounds x4 quadrants, no masses, no guarding, no tenderness. ??No hepatosplenomegaly. ??Abdomen is soft. Skin: Warm, dry, and pink. Neurological: Alert and oriented x3, speech is clear and gait is steady. Psychological: Pleasant, calm and cooperative. Assessment/Plan 1.??Chronic diarrhea??K52.9 ??Colonoscopy showed no signs of colitis on segmental biopsies.?? Colonoscopy was done for??chronicdiarrhea and calprotectin of 215.?? She had 1 tubular adenoma. ??Repeat colonoscopy in 5 years for colon cancer screening.?? Symptoms are likely functional in nature. ??Could benefit from medication for neuromodulation with a tricyclic antidepressant such as amitriptyline, nortriptyline at 10 to 25mg daily??or Cymbalta??starting at 30 mg daily. ??She sees a psychiatrist.?? Will defer??managementof these medications??to her psychiatrist.?? Patient is okay with me sending??today's note to them??to consider these medications.?? She tried Questran powder in the past??however it caused her to vomit. 2.??Gastroparesis??K31.84 ??Patient was found to have gastroparesis??on gastric emptying scan. ??She has been referred to [facility]??for further evaluation and treatment. ??She has an appointment next week.?? Encouraged to avoid fatty foods??and??complex carbohydrates as they are harder??and take longer to digest.?? Handout was given to the patient.?? Encourage patient to eat small frequent meals instead of 1 meal daily.?? Medication such as Topamax??or behavioral??may be playing a part to her gastroparesis. 3.??Gastroesophageal reflux disease??K21.9 ??Improved with pantoprazole 40 mg daily. ??There may be a functional component for benefit from medications for neuromodulation. 4.??IBS (irritable bowel syndrome)??K58.9 ??As above.?? Follow-up as needed. Voice recognition software utilized which may result in minor multi mission helicopter aircrewman error. Problem List/Past Medical History Ongoing Adjustment disorder [...] Historical D - Diarrhea Procedure/Surgical History ???Colonoscopy Biopsy (07/04/2024)???Colonoscopy (08/24/2020)???EGD - esophagogastroduodenoscopy (08/24/2020)???Cholecystectomy;???Right oophorectomy Medications ALPRAZolam 1 mg oral tablet, 1 mg= [...] Hyperlipidemia: Father. Stroke: Mother. Electronically Signed on 07/18/2024 15:17 EDT Elizabeth Fletcher APRN Patient Care team information Care Team Personnel Name: HONEY MURRAY NP Position: No Access Member Role: Primary Care Physician Address: [address] [place] [address] Insurance Providers Guarantor name: ROBERT BACH Health Plan Information #: 1 Payer: [facility] [employer] Member Number: [id number] Policy Number: [place] Health Plan Information #: 2 Payer: [employer] Member Number: [id number] Policy Number: [place] Health Plan Information #: 3 Payer: SELF PAY Member Number: LILIAN Policy Number: LILIAN
--- OUTSIDE RECORDS SUMMARY | 2024-07-30 16:32 | XMS_ITS | Encounter Summary ---
[place] [address] Care Team Providers Care Town Justice Name Role Phone Malgorzata Orellana APRN Primary Care Provider [phone] Reason for Visit * Reason Onset Date Comments Appointment 01/29/2024 Encounter Details Date Type Department Care Team (Late st Contact Info) Description 01/29/2024 [place]phone [place] [id number] Gricel Stoddard GENERAL INTERNIST [facility] [place] [address] Appointment Social History Tobacco Use Types Packs/Day Years [...] Notes * Telephone Encounter - Monica Butcher - 01/29/2024 3:11 PM EDT Called pt scheduled Video visit for 02/06 with Gricel Stoddard. ----- Message from Gricel Stoddard APRN sent at 01/24/2024 6:00 PM EDT ----- Can you please offer her a telehealth visit to review her recent MRA? Thanks! ----- Message ----- From: Department, Radiology Sent: 01/24/2024 3:25 PM EDT To: Gricel Stoddard APRN documented in this encounter Plan of Treatment Upcoming Encounters Date Type Department Care Team (Late st Contact Info) Description 01/24/2025 9:00 AM EDT TH Visit (TeleHealth) [place] [address] Gricel Stoddard APRN [facility] [place] [address] documented as of this encounter Visit Diagnoses Not on filedocumented in this encounter Care Teams Town Justice Relationship Specialty Start Date End Date Malgorzata Orellana APRN [address] [place] [address] PCP - General Internal Medicine 06/22/23 documented as of this encounter
--- OUTSIDE RECORDS SUMMARY | 2024-07-30 16:32 | XMS_ITS | Continuity of Care Document ---
Author Organization [facility] Ambulatory Clinics Address [address] [place] [address] Care Team Providers Care Plumbing Inspector Name Role Phone MALGORZATA RAMIREZ NP Primary Care Physician Encounter [facility] NBR [id number] Date(s): 05/07/24 - 05/07/24 [facility] Ambulatory Clinics [address] [place], [place] [address] [[email or web address] Encounter Diagnosis Chronic diarrhea(Discharge Diagnosis) - 05/07/24 Functional dyspepsia(Discharge Diagnosis) - 05/07/24 Gastroesophageal reflux disease(Discharge Diagnosis) - 05/07/24 Elevated fecal calprotectin(Discharge Diagnosis) - 05/07/24 Discharge Disposition: Home or Self Care Attending Physician: Elizabeth Fletcher APRN Allergies, Adverse Reactions, Alerts Substance Reaction Severity Status erythromycin Wheal Unknown Active doxepin dizziness Unknown Active shellfish Anaphylaxis Severe Active sulfa drugs Unknown Active Influenza Virus Vaccine Unknown Unknown Acti ve metroNIDAZOLE stomach upset Unknown Active clonazePAM nervousness/agitation Unknown Active PARoxetine suicide atempt Severe Active Latex Unknown Unknown Active Walnuts Eruption Unknown Active Assessment and Plan Extracted from: Title:Office Visit Note-GI Author:Elizabeth Fletcher APRN Date:05/07/24 1.??Chronic diarrhea??K52.9 ??Patient with chronic diarrhea.?? She did not tolerate??Questran powder.?? Calprotectin elevated to 15. ??Schedule colonoscopy??to rule out colitis or neoplasia. ??I will see patient 2 weeks following to discuss findings and make further recommendations.?? Dicyclomine 10 mg 4 times a day has helped??in relief of her symptoms??to some degree.?? Colonoscopy is ordered but not scheduled as we need clearance??from neurologist to stop aspirin. 2.??Functional dyspepsia??K30 ??Slightly improved with dicyclomine and Zofran no ongoing symptoms.?? Obtain gastric emptying scan to rule out gastroparesis. 3.??Gastroesophageal reflux disease??K21.9 ??Continue pantoprazole 40 mg??and??dicyclomine.?? Discussed reflux triggering foods and beverages to avoid, to avoid eating 3 hours before bedtime and eat small frequent meals. 4.??Elevated fecal calprotectin??R19.5 As above. Voice recognition software utilized which may result in minor portfolio specialist error. Functional Status 05/07/24 Other exposure to Infectious Disease Non e [...] # 120 cap, 1 Refill(s), Pharmacy: [facility], 152.4, cm, 01/30/24 9:43:00 EDT, Height, [...] nausea., # 90 tab, 1 Refill(s), Pharmacy: [facility], 152.4, cm, 01/30/24 9:43:00 EDT, Height, 74.6, kg, 01/30/24 9:46:00 EDT, Weight Dosing Start Date: 01/30/24 Stop Date: 03/30/24 Status: Ordered pantoprazole 40 mg oral delayed release tablet See Instructions, TAKE 1 TABLET 30 MINUTES BEFORE BREAKFAST AND EVENING MEAL, # 60 tab, 1 Refill(s), Pharmacy: [facility] Start Date: 09/15/22 Status: Ordered propranolol [...] Cholecystectomy; Complete d Right oophorectomy Comple nena Vital Signs Most recent to oldest [Reference Range]: 1 Temperature Temporal Artery [36-38 Deg C ] 36.6 Deg C (05/07/24 3:32 PM) Apical Heart Rate [60-100 bpm] 77 bpm (05/07/24 3:32 PM) Blood Pressure [90-140/60-90 mmHg] 124/6 9mmHg (05/07/24 3:32 PM) Mean Arterial Pressure, Cuff [65-140 mmH g] 87 mmHg (05/07/24 3:32 PM) Weight 68.04 kg (05/07/24 3:32 PM) Weight Measured (lbs) 150.002 lb (05/07/24 3:32 PM) Weight Dosing 68.040 kg (05/07/24 3:32 PM) [place] Body Weight Calculated 45.5 kg (05/07/24 3:32 PM) Height 152.40 cm (05/07/24 3:32 PM) Height/Length Measured (inches) 60 inch (05/07/24 3:32 PM) BSA Measured 1.7 m2 (05/07/24 3:32 PM) Body Mass Index 29.3 kg/m2 (05/07/24 3:32 PM) Social History Social History Type Response Tobacco Current everyday tob acco user Tobacco Use:. 1 pack a day per day. 20 year(s). Sex Physician Outpatient Note * Elizabeth Fletcher APRN: PERFORM Event Display: Office Clinic Note Physician Authored Date: [id number] ROBERT BACH :1975 Age:48 years Sex:Female Visit Date:05/07/2024 Primary Care Physician: MALGORZATA RAMIREZ NP Chief Complaint IBS and GERD Follow-up History of Present Illness Patient is a??48-year-old female??here today at the request of Malgorzata Ramirez APRN??with significantmood disorder??and GI complaints.?? Patient has been seen by us in [phone].?? Since??he was referred to [facility]??where she was last seen 2 years ago.?She was told she had IBS and was referred to dietitian??to review a low FODMAP diet??which??she followed which produced no subjective change.?? Patient reports that??she experienced no significant relief??from??previous visits to our practice??or from [facility]. ??She continues to have 6-9 watery [...] of the week??it occurs 4 times per week.?? She continues to have nausea but states Zofran has helped. ??She also continues to complain of dyspepsia. ?? The patient was treated with??colestipol??for??possible bile acid malabsorption??secondary to cholecystectomy.? She underwent bidirectional endoscopy??on 08/24/2020. ??EGD was??endoscopically normal.?? Biopsies were negative for celiac disease, H. pylori infection.?? Colonoscopy for history of adenomatous colon polyps??and diarrhea showed sigmoid diverticulosis.?? Random colon biopsies show no evidence of microscopic colitis.?? A 6 mm nonbleeding AVM was left intact in the sigmoid colon.?? A 2 mm??hyperplastic polyp was removed from the rectum. ?? She reports that her father had esophageal cancer at the age of 75??and she has multiple??paternal family members??with??multiple forms of cancer. ??She also reports a??paternal cousin??with gastric cancer in his 20s.?? Review of Systems Pertinent positives and negatives are discussed in HPI. Physical Exam Vitals & Measurements T:??36.6?C ??(Temporal Artery)?? HR:??77??(Apical)?? BP:??124/69?? SpO2:??93%?? HT:??152.40??cm?? WT:??68.04??kg?? BMI:??29.3?? BSA:??1.7?? General: Well-nourished well-developed female??in no acute distress. HEENT: Head is normocephalic, [...] Pleasant, calm and cooperative. Assessment/Plan 1.??Chronic diarrhea??K52.9 ??Patient with chronic diarrhea.?? She did not tolerate??Questran powder.?? Calprotectin elevated to 15. ??Schedule colonoscopy??to rule out colitis or neoplasia. ??I will see patient 2 weeks following to discuss findings and make further recommendations.?? Dicyclomine 10 mg 4 times a day has helped??in relief of her symptoms??to some degree.?? Colonoscopy is ordered but not scheduled as we need clearance??from neurologist to stop aspirin. 2.??Functional dyspepsia??K30 ??Slightly improved with dicyclomine and Zofran no ongoing symptoms.?? Obtain gastric emptying scanto rule out gastroparesis. 3.??Gastroesophageal reflux disease??K21.9 ??Continue pantoprazole 40 mg??and??dicyclomine.?? Discussed reflux triggering foods and beverages to avoid, to avoid eating 3 hours before bedtime and eat small frequent meals. 4.??Elevated fecal calprotectin??R19.5 As above. Voice recognition software utilized which may result in minor portfolio specialist error. Problem List/Past Medical History Ongoing 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 Gall stones Gastroesophageal reflux disease Headache Hx of adenomatous colonic polyps Hx [...] ???Colonoscopy (08/24/2020)???EGD - esophagogastroduodenoscopy (08/24/2020)???Cholecystectomy;???Right oophorectomy Medications ALPRAZolam [...] night at bedtime Allergies PARoxetine??(suicide atempt) shellfish??(Anaphylaxis) Influenza Virus Vaccine??(Unknown) Latex??(Unknown) Walnuts??(Eruption) clonazePAM??(nervousness/agitation) doxepin??(dizziness) erythromycin??(Wheal) metroNIDAZOLE??(stomach upset) sulfa drugs Social History Alcohol Current, Beer, 3-5 times per week Electronic Cigarette/Vaping Electronic Cigarette Use: Never. Substance Use Current, Marijuana, Daily Tobacco Current everyday tobacco user Tobacco Use:. 1 pack a day per day. 20 year(s). Family History Asthma: Father. COPD - Chronic obstructive pulmonary disease: Mother. Depression: Mother. Heart disease: Mother and Father. Hyperlipidemia: Father. Stroke: Mother. Electronically Signed on 05/07/2024 15:57 EDT Elizabeth Fletcher APRN Patient Care team information Care Team Personnel Name: MALGORZATA RAMIREZ NP Position: No Access Member Role: Primary Care Physician Address: Address: [address] [place] [address]
--- OUTSIDE RECORDS SUMMARY | 2024-07-30 16:32 | XMS_ITS | Continuity of Care Document ---
Author Organization [facility] Address [address] [place] [id number] Care Team Providers Care Building Drafter Name Role Phone ASHLEY DESAI, FRANSICO Yeung Primary Care Physician Encounter [facility] NBR [id number] Date(s): 01/30/24 - 01/30/[address] [address]- [place] Discharge Disposition: Home or Self Care Attending Physician: Emerson Hernandez MD Admitting Physician: Emerson Hernandez MD Referring Physician: Emerson Hernandez MD Allergies, Adverse Reactions, Alerts Substance Reaction Severity Status erythromycin Wheal Unknown Active doxepin dizziness Unknown Active shellfish Anaphylaxis Severe Active sulfa drugs Unknown Active clonazePAM nervousness/agitation Unknown Active PARoxetine suicide atempt Severe Active Latex Unknown Unknown Active Walnuts Eruption Unknown Active Influenza Virus Vaccine Unknown Unknown Acti ve metroNIDAZOLE stomach upset Unknown Active Assessment and Plan Future Appointments Future Scheduled Tests Laboratory* Calprotectin, Fecal LC 01/30/24 Medications ALPRAZolam 1 mg oral tablet 1 mg = 1 tab, Oral, Daily, PRN as needed for anxiety Start Date: 10/06/23 Status: Ordered aspirin 81 mg oral delayed release tablet 81 mg = 1 tab, Oral, Daily, # 30 tab, 0 Refill(s) Start Date: 01/29/24 Status: Ordered dicyclomine 10 mg oral capsule 10 mg = 1 cap, Oral, QID, Take 1 tablet by mouth 30 to 60 minutes before meals and before bed, # 120 cap, 1 Refill(s), Pharmacy: [id number], 152.4, cm, 01/30/24 9:43:00 EDT, Height, [...] nausea., # 90 tab, 1 Refill(s), Pharmacy: [id number], 152.4, cm, 01/30/24 9:43:00 EDT, Height, 74.6, kg, 01/30/24 9:46:00 EDT, Weight Dosing Start Date: 01/30/24 Stop Date: 03/30/24 Status: Ordered pantoprazole 40 mg oral delayed release tablet See Instructions, TAKE 1 TABLET 30 MINUTES BEFORE BREAKFAST AND EVENING MEAL, # 60 tab, 1 Refill(s), Pharmacy: [id number] Start Date: 09/15/22 Status: Ordered propranolol 10 mg oral tablet 10 mg = 1 tab, Oral, BID, PRN palpitations Start Date: 10/06/23 Status: Ordered Topamax 100 mg oral tablet 100 mg = 1 tab, Oral, every night at bedtime Start Date: 10/06/23 Status: Ordered Viibryd 40 mg oral tablet 0 Refill(s) Start Date: 10/06/23 Status: Ordered Vraylar 1.5 mg oral capsule [...] Confirmed Active Restless leg syndrome Confirmed Active Seasonal affective disorder Confirmed Active Subclinical hyperthyroidism Confirmed Active Vitamin D deficiency Confirmed Active Procedures Procedure Date Related Diagnosis Body Site Status Colonoscopy 08/23/20 Completed EGD - esophagogastroduodenoscopy 08/23/20 Completed Cholecystectomy; Complete d Right oophorectomy Comple nena Social History Social History Type Response Tobacco Current everyday tob acco user Tobacco Use:. 1 pack a day per day. 21 year(s). Sex Patient Care team information Care Team Personnel Name: FRANSICO RAMIREZ NP Position: No Access Member Role: Primary Care Physician Address: Address: [address] [place] [phone]
--- OUTSIDE RECORDS SUMMARY | 2024-07-30 16:32 | XMS_ITS | Encounter Summary ---
Author Organization [facility] [place] [address] Care Team Providers Care Nanotechnology Engineering Technologist Name Role Phone Malgorzata Orellana APRN Primary Care Provider [phone] Reason for Referral * Diagnostic Test (Routine) - Closed Specialty Diagnoses / Procedures Referred By Jennifer guillen Referred To Contact Radiology Diagnoses Right internal carotid artery aneurysm Procedures MRI Angiogram Head wo Contrast (Generic) Gricel Stoddard APRN [facility] [address] [place] [address] Referral ID Status Reason Start Date Expiration Date V isits Requested Visits Authorized [id number] Closed Specialty Service Requested 06/22/2023 12/23/2024 1 1 Encounter Details Date Type Department Care Team (Late st Contact Info) Description 06/22/2023 9:40 AM EDT [place] [address] Gricel Stoddard APRN [facility] [place] [address] Right internal carotid artery aneurysm [...] AM EDT documented as of this encounter Last [...] Mass Index 26.95 06/22/2023 9:51 AM EDT documented in this encounter Progress Notes * Gricel Stoddard, [employer]AKER - 06/22/2023 9:40 AM EDT ASSESSMENT/PLAN: Right internal carotid artery aneurysm Stent assisted treatment of aneurysm without evidence of recurrence. Will continue with q 6 month MRA until 2 years post treatment, then annual MRA x 3 years. Advised of recommendation for sibling and her adult children to have aneurysm screening. Continue ASA 81mg, may stop briefly for procedures as indicated. CHIEF COMPLAINT (in bold): Patient Active Problem [...] stent endothelialized. Stopped Plavix, continue aSA 81mg. Bipolar disorder Restless leg syndrome Persistent depressive [...] = 110 (normal 75-170) HISTORY: Franchesca Dickson Returns in followup with MRA head. Feels well with no symptoms referable to aneurysm. Taking ASA 81mg. PHYSICAL EXAM: No acute distress Awake, Alert, Interactive Speech fluent and articulate. IMAGING & OTHER RESULTS: MRA head today personally reviewed. No evidence of DERRICK aneurysm recurrence. Reviewed with Dr. Linares, who feels no new aneurysms and stable finding overall. documented in this encounter Miscellaneous Notes * Assessment & Plan Note - Gricel Stoddard APRN - 06/22/2023 10:14 AM EDT Associated Problem(s): Right internal carotid artery aneurysm Stent assisted treatment of aneurysm without evidence of recurrence. Will continue with q 6 month MRA until 2 years post treatment, then annual MRA x 3 years. Advised of recommendation for sibling and her adult children to have aneurysm screening. Continue ASA 81mg, may stop briefly for procedures as indicated. documented in this encounter Plan of Treatment Upcoming Encounters Date Type Department Care Team (Late st Contact Info) Description 01/24/2025 9:00 AM EDT TH Visit (TeleHealth) [facility] [place] [address] Gricel Stoddard APRN [facility] [address] documented as of this encounter Results * MRI Angiogram Head [...] who have questions please contact the health patient care that requested your imaging first. ? Electronically signed by: Soy Lopez MD, [facility] ([phone]), at 01/24/2024 3:20 PM Narrative 01/24/2024 3:20 PM EDT EXAMINATION: MRI [...] patients who have questions please contactthe health patient care that requested your imaging first. Electronically signed by: Soy Lopez MD, [facility]([phone]), at 01/24/2024 3:20 PM Gricel L Stoddard [employer]AKER IMG MRI ORDERABLES documented in this encounter Visit Diagnoses Diagnosis Right internal carotid artery aneurysm Cerebral aneurysm, nonruptured Right internal carotid artery aneurysm Cerebral aneurysm, nonruptured documented in this encounter Care Teams Nanotechnology Engineering Technologist Relationship Specialty Start Date End Date Malgorzata Orellana, [employer]ITCH[employer] BREAKER [address] [place] [address] PCP - General Internal Medicine 06/22/23 documented as of this encounter
--- OUTSIDE RECORDS SUMMARY | 2024-07-30 16:32 | XMS_ITS | Continuity of Care Document ---
Author Organization [facility] Ambulatory Clinics Address [address] [place] [address] Care Team Providers Care Socially Responsible Investment Adviser Name Role Phone MALGORZATA RAMIREZ NP Primary Care Physician Encounter [facility] NBR [id number] Date(s): 01/30/24 - 01/30/24 [facility] Ambulatory Clinics [address], [place] [address] Encounter Diagnosis Functional dyspepsia(Discharge Diagnosis) - 01/30/24 IBS (irritable bowel syndrome)(Discharge Diagnosis) - 01/30/24 Status post cholecystectomy(Discharge Diagnosis) - 01/30/24 Hx of adenomatous colonic polyps(Discharge Diagnosis) - 01/30/24 Chronic diarrhea(Discharge Diagnosis) - 01/30/24 Nausea and vomiting(Discharge Diagnosis) - 01/30/24 Discharge Disposition: Home or Self Care Attending Physician: Emerson Hernandez MD Allergies, Adverse Reactions, [...] Assessment and Plan Extracted from: Title:Office Visit Note Author:Emerson Hernandez MD Date:01/30/24 1.??Functional dyspepsia??K3 0 We discussed the significance of disordered gut brain interaction with respect to both upper and lower tract GI symptoms.?? Celiac disease has been excluded. ??H. pylori infection has been excluded.?? Question??diabetic gastroparesis although unlikely??given??that she was only recently started on metformin.?? Given that she is on multiple psychoactive medications??I would be reluctant to add neuromodulators??due to risk of??drug drug interactions.?? We discussed the chronic??and relapsing nature of her symptoms??and that??the goal??of treatment is to??modulate her symptoms??so as to improve the quality of her life. Ordered: dicyclomine 10 mg oral capsule, 10 mg = 1 cap, Oral, QID, Take 1 tablet by mouth 30 to 60 minutes before meals and before bed, # 120 cap, 1 Refill(s), Pharmacy: [facility], 152.4, cm, 01/30/24 9:43:00 EDT, Height, 74.6, kg, 01/30/24 9:46:00 EDT, Weight Dosing ondansetron 4 mg oral tablet, 4 mg = 1 tab, Oral, every 8 hr, Take 1 tablet by mouth 3 times daily as needed for nausea., # 90 tab, 1 Refill(s), Pharmacy: [facility], 152.4, cm, 01/30/24 9:43:00 EDT, Height, 74.6, kg, 01/30/24 9:46:00 EDT, Weight Dosing Calprotectin, Fecal LC, Stool, Routine Collect, 01/30/24, Once, Lab Collect, Print Label, Functional dyspepsia IBS (irritable bowel syndrome) Status post cholecystectomy Hx of adenomatous colonic polyps Chronic diarrhea Nausea and vomiting, Order for future visit ?? 2.??IBS (irritable bowel syndrome)??K58.9 Diarrhea predominant.?? Question element of bile acid malabsorption status postcholecystectomy but the patient was intolerant to??bile acid sequestrant's.?? Check fecal calprotectin and if elevated??repeat colonoscopy with??mucosal biopsies??to exclude??colitis. ??If calprotectin is negative??treat as a D GBI.?? We reviewed??low FODMAP diet??which may be of benefit in reducing bloating.?? In the past she has noted no significant change??on avoidance of FODMAPs.?? Trial of antispasmodics, dicyclomine 10 mg??prior to meals and prior to bed. Ordered: dicyclomine 10 mg oral capsule, 10 mg = 1 cap, Oral, QID, Take 1 tablet by mouth 30 to 60 minutes before meals and before bed, # 120 cap, 1 Refill(s), Pharmacy: [facility], 152.4, cm, 01/30/24 9:43:00 EDT, Height, 74.6, kg, 01/30/24 9:46:00 EDT, Weight Dosing ondansetron 4 mg oral tablet, 4 mg = 1 tab, Oral, every 8 hr, Take 1 tablet by mouth 3 times daily as needed for nausea., # 90 tab, 1 Refill(s), Pharmacy: [facility], 152.4, cm, 01/30/24 9:43:00 EDT, Height, 74.6, kg, 01/30/24 9:46:00 EDT, Weight Dosing Calprotectin, Fecal LC, Stool, Routine Collect, 01/30/24, Once, Lab Collect, Print Label, Functional dyspepsia IBS (irritable bowel syndrome) Status post cholecystectomy Hx of adenomatous colonic polyps Chronic diarrhea Nausea and vomiting, Order for future visit ?? 3.??Status post cholecystectomy??Z90.49 See above.?? Patient was intolerant to??Questran powder.?? Has not had an adequate trial??of??colestipol??since the medication was??backordered??at the time of her last visit??with us??3 years ago. Ordered: dicyclomine 10 mg oral capsule, 10 mg = 1 cap, Oral, QID, Take 1 tablet by mouth 30 to 60 minutes before meals and before bed, # 120 cap, 1 Refill(s), Pharmacy: [facility], 152.4, cm, 01/30/24 9:43:00 EDT, Height, 74.6, kg, 01/30/24 9:46:00 EDT, Weight Dosing ondansetron 4 mg oral tablet, 4 mg = 1 tab, Oral, every 8 hr, Take 1 tablet by mouth 3 times daily as needed for nausea., # 90 tab, 1 Refill(s), Pharmacy: [facility], 152.4, cm, 01/30/24 9:43:00 EDT, Height, 74.6, kg, 01/30/24 9:46:00 EDT, Weight Dosing Calprotectin, Fecal LC, Stool, Routine Collect, 01/30/24, Once, Lab Collect, Print Label, Functional dyspepsia IBS (irritable bowel syndrome) Status post cholecystectomy Hx of adenomatous colonic polyps Chronic diarrhea Nausea and vomiting, Order for future visit ?? 4.??Hx of adenomatous colonic polyps??Z86.010 Repeat colonoscopy in 2024??or sooner if calprotectin??is elevated. Ordered: dicyclomine 10 mg oral capsule, 10 mg = 1 cap, Oral, QID, Take 1 tablet by mouth 30 to 60 minutes before meals and before bed, # 120 cap, 1 Refill(s), Pharmacy: [facility], 152.4, cm, 01/30/24 9:43:00 EDT, Height, 74.6, kg, 01/30/24 9:46:00 EDT, Weight Dosing ondansetron 4 mg oral tablet, 4 mg = 1 tab, Oral, every 8 hr, Take 1 tablet by mouth 3 times daily as needed for nausea., # 90 tab, 1 Refill(s), Pharmacy: [facility], 152.4, cm, 01/30/24 9:43:00 EDT, Height, 74.6, kg, 01/30/24 9:46:00 EDT, Weight Dosing Calprotectin, Fecal LC, Stool, Routine Collect, 01/30/24, Once, Lab Collect, Print Label, Functional dyspepsia IBS (irritable bowel syndrome) Status post cholecystectomy Hx of adenomatous colonic polyps Chronic diarrhea Nausea and vomiting, Order for future visit ?? 5.??Chronic diarrhea??K52.9 See above. Ordered: dicyclomine 10 mg oral capsule, 10 mg = 1 cap, Oral, QID, Take 1 tablet by mouth 30 to 60 minutes before meals and before bed, # 120 cap, 1 Refill(s), Pharmacy: [facility], 152.4, cm, 01/30/24 9:43:00 EDT, Height, 74.6, kg, 01/30/24 9:46:00 EDT, Weight Dosing ondansetron 4 mg oral tablet, 4 mg = 1 tab, Oral, every 8 hr, Take 1 tablet by mouth 3 times daily as needed for nausea., # 90 tab, 1 Refill(s), Pharmacy: [facility], 152.4, cm, 01/30/24 9:43:00 EDT, Height, 74.6, kg, 01/30/24 9:46:00 EDT, Weight Dosing Calprotectin, Fecal LC, Stool, Routine Collect, 01/30/24, Once, Lab Collect, Print Label, Functional dyspepsia IBS (irritable bowel syndrome) Status post cholecystectomy Hx of adenomatous colonic polyps Chronic diarrhea Nausea and vomiting, Order for future visit ?? 6.??Nausea and vomiting??R11.2 Trial of ondansetron.?? If no improvement??order gastric emptying scan.?? Patient will return to clinic??in 8 weeks. Ordered: dicyclomine 10 mg oral capsule, 10 mg = 1 cap, Oral, QID, Take 1 tablet by mouth 30 to 60 minutes before meals and before bed, # 120 cap, 1 Refill(s), Pharmacy: [facility], 152.4, cm, 01/30/24 9:43:00 EDT, Height, 74.6, kg, 01/30/24 9:46:00 EDT, Weight Dosing ondansetron 4 mg oral tablet, 4 mg = 1 tab, Oral, every 8 hr, Take 1 tablet by mouth 3 times daily as needed for nausea., # 90 tab, 1 Refill(s), Pharmacy: [facility], 152.4, cm, 01/30/24 9:43:00 EDT, Height, 74.6, kg, 01/30/24 9:46:00 EDT, Weight Dosing Calprotectin, Fecal LC, Stool, Routine Collect, 01/30/24, Once, Lab Collect, Print Label, Functional dyspepsia IBS (irritable bowel syndrome) Status post cholecystectomy Hx of adenomatous colonic polyps Chronic diarrhea Nausea and vomiting, Order for future visit ?? Voice recognition software utilized which may result in minor blanking machine operator errors. Future Appointments Future Scheduled Tests Laboratory* Calprotectin, [...] # 120 cap, 1 Refill(s), Pharmacy: [facility], 152.4, cm, 01/30/24 9:43:00 EDT, Height, [...] nausea., # 90 tab, 1 Refill(s), Pharmacy: [facility], 152.4, cm, 01/30/24 9:43:00 EDT, Height, 74.6, kg, 01/30/24 9:46:00 EDT, Weight Dosing Start Date: 01/30/24 Stop Date: 03/30/24 Status: Ordered pantoprazole 40 mg oral delayed release tablet See Instructions, TAKE 1 TABLET 30 MINUTES BEFORE BREAKFAST AND EVENING MEAL, # 60 tab, 1 Refill(s), Pharmacy: [facility] Start Date: 09/15/22 Status: Ordered propranolol [...] Temperature Temporal Artery [36-38 Deg C ] 36.7 Deg C (01/30/24 9:43 AM) Peripheral Pulse Rate [60-100 bpm] 71 bp m (01/30/24 9:43 AM) Blood Pressure [90-140/60-90 mmHg] 122/7 2mmHg (01/30/24 9:43 AM) Mean Arterial Pressure, Cuff [65-140 mmH g] 89 mmHg (01/30/24 9:43 AM) Weight 74.6 kg (01/30/24 9:43 AM) Weight Measured (lbs) 164.465 lb (01/30/24 9:43 AM) Weight Dosing 74.600 kg (01/30/24 9:43 AM) [place] Body Weight Calculated 45.5 kg (01/30/24 9:43 AM) Height 152.40 cm (01/30/24 9:43 AM) Height/Length Measured (inches) 60 inch (01/30/24 9:43 AM) BSA Measured 1.78 m2 (01/30/24 9:43 AM) Body Mass Index 32.12 kg/m2 (01/30/24 9:43 AM) Social History Social History Type Response Tobacco Current everyday tob acco user Tobacco Use:. 1 pack a day per day. 20 year(s). Sex Physician Outpatient Note * Emerson Hernandez MD: PERFORM Event Display: Office Clinic Note Physician Authored Date: [id number] ROBERT BACH :1975 Age:48 years Sex:Female Visit Date:01/30/2024 Primary Care Physician: MALGORZATA RAMIREZ NP Chief Complaint Reestablish GI care. History of Present Illness Established patient.?? 48-year-old female??patient of Malgorzata Davey NP??with significant mood disorder,??last seen at this office by Elizabeth Fletcher APRN??on 08/09/2021??for??disordered gut brain interaction??with both upper and lower tract symptoms including??bloating, dyspepsia, and chronic diarrhea.?? She underwent bidirectional endoscopy??on 08/24/2020. ??EGD was??endoscopically normal.?? Biopsies were negative for celiac disease, H. pylori infection.?? Colonoscopy for history of adenomatous colon polyps??and diarrhea showed sigmoid diverticulosis.?? Random colon biopsies show no evidence of microscopic colitis.?? A 6 mm nonbleeding AVM was left intact in the sigmoid colon.?? A 2 mm??hyperplastic polyp was removed from the rectum. ??She reports that her father had esophageal cancer at the age of 75??and she has multiple??paternal family members??with??multiple forms of cancer. ??She also reports a??paternal cousin??with gastric cancer in his 20s. ??Repeat colonoscopy in 5 years was r ecommended.? The patient was treated with??colestipol??for??possible bile acid malabsorption??secondary to cholecystectomy.?? At her last visit on 08/09/2021 she was advised to follow-up in 3 weeks.?? She was lost to follow-up since that time.?? In the interim the patient was seen by [facility], last seen 2 years ago.?? She was told she had IBS and was referred to dietitian??to review a low FODMAP diet??which??she followed which produced no subjective change. ?? Patient reports that??she experienced no significant relief??from??previous visits to our practice??or from [facility]. ??She continues to have 6-9 watery nonbloody bowel movements all day including??at least 1 nocturnal bowel movement with nocturnal incontinence.?? She reports nausea and vomiting??with bloating.?? She noted??no change in her diarrhea??since her cholecystectomy,??and diarrhea predated use of metformin??which she has been on for the last 6 months.?? She denies any change of bowel habits??or??changes in nausea??since starting metformin.?? She continues on pantoprazole??30 minutes before breakfast and supper. ??She has had no recent heartburn or regurgitation. ??She denies di fficulty swallowing.?? Use of bile acid sequestrants??in the past caused nausea and vomiting. Physical Exam Vitals & Measurements T:??36.7?C ??(Temporal Artery)?? HR:??71??(Peripheral)?? BP:??122/72?? SpO2:??96%?? HT:??152.40??cm?? WT:??74.6??kg?? BMI:??32.12?? BSA:??1.78?? Obese white female no acute distress Lungs: Clear to auscultation bilaterally Heart: Regular rhythm S1-S2 Abdomen: Normoactive bowel sounds, soft, diffuse abdominal tenderness without peritoneal signs,??[place] organomegaly Assessment/Plan 1.??Functional dyspepsia??K30 We discussed the significance of disordered gut brain interaction with respect to both upper and lower tract GI symptoms.?? Celiac disease has been excluded. ??H. pylori infection has been excluded.?? Question??diabetic gastroparesis although unlikely??given??that she was only recently started on metformin.?? Given that she is on multiple psychoactive medications??I would be reluctant to add neuromodulators??due to risk of??drug drug interactions.?? We discussed the chronic??and relapsing nature of her symptoms??and that??the goal??of treatment is to??modulate her symptoms??so as to improve the quality of her life. Ordered: dicyclomine 10 mg oral capsule, 10 mg = 1 cap, Oral, QID, Take 1 tablet by mouth 30 to 60 minutes before meals and before bed, # 120 cap, 1 Refill(s), Pharmacy: [facility], 152.4, cm, 01/30/24 9:43:00 EDT, Height, 74.6, kg, 01/30/24 9:46:00 EDT, Weight Dosing ondansetron 4 mg oral tablet, 4 mg = 1 tab, Oral, every 8 hr, Take 1 tablet by mouth 3 times daily as needed for nausea., # 90 tab, 1 Refill(s), Pharmacy: [facility], 152.4, cm, 01/30/24 9:43:00 EDT, Height, 74.6, kg, 01/30/24 9:46:00 EDT, Weight Dosing Calprotectin, Fecal LC, Stool, Routine Collect, 01/30/24, Once, Lab Collect, Print Label, Functional dyspepsia IBS (irritable bowel syndrome) Status post cholecystectomy Hx of adenomatous colonic polyps Chronic diarrhea Nausea and vomiting, Order for future visit ?? 2.??IBS (irritable bowel syndrome)??K58.9 Diarrhea predominant.?? Question element of bile acid malabsorption status postcholecystectomy but the patient was intolerant to??bile acid sequestrant's.?? Check fecal calprotectin and if elevated??repeat colonoscopy with??mucosal biopsies??to exclude??colitis. ??If calprotectin is negative??treatas a D GBI.?? We reviewed??low FODMAP diet??which may be of benefit in reducing bloating.?? In the past she has noted no significant change??on avoidance of FODMAPs.?? Trial of antispasmodics, dicyclomine 10 mg??prior to meals and prior to bed. Ordered: dicyclomine 10 mg oral capsule, 10 mg = 1 cap, Oral, QID, Take 1 tablet by mouth 30 to 60 minutes before meals and before bed, # 120 cap, 1 Refill(s), Pharmacy: [facility], 152.4, cm, 01/30/24 9:43:00 EDT, Height, 74.6, kg, 01/30/24 9:46:00 EDT, Weight Dosing ondansetron 4 mg oral tablet, 4 mg = 1 tab, Oral, every 8 hr, Take 1 tablet by mouth 3 times daily as needed for nausea., # 90 tab, 1 Refill(s), Pharmacy: [facility], 152.4, cm, 01/30/24 9:43:00 EDT, Height, 74.6, kg, 01/30/24 9:46:00 EDT, Weight Dosing Calprotectin, Fecal LC, Stool, Routine Collect, 01/30/24, Once, Lab Collect, Print Label, Functional dyspepsia IBS (irritable bowel syndrome) Status post cholecystectomy Hx of adenomatous colonic polyps Chronic diarrhea Nausea and vomiting, Order for future visit ?? 3.??Status post cholecystectomy??Z90.49 See above.?? Patient was intolerant to??Questran powder.?? Has not had an adequate trial??of??colestipol??since the medication was??backordered??at the time of her last visit??with us??3 years ago. Ordered: dicyclomine 10 mg oral capsule, 10 mg = 1 cap, Oral, QID, Take 1 tablet by mouth 30 to 60 minutes before meals and before bed, # 120 cap, 1 Refill(s), Pharmacy: [facility], 152.4, cm, 01/30/24 9:43:00 EDT, Height, 74.6, kg, 01/30/24 9:46:00 EDT, Weight Dosing ondansetron 4 mg oral tablet, 4 mg = 1 tab, Oral, every 8 hr, Take 1 tablet by mouth 3 times daily as needed for nausea., # 90 tab, 1 Refill(s), Pharmacy: [facility], 152.4, cm, 01/30/24 9:43:00 EDT, Height, 74.6, kg, 01/30/24 9:46:00 EDT, Weight Dosing Calprotectin, Fecal LC, Stool, Routine Collect, 01/30/24, Once, Lab Collect, Print Label, Functional dyspepsia IBS (irritable bowel syndrome) Status post cholecystectomy Hx of adenomatous colonic polyps Chronic diarrhea Nausea and vomiting, Order for future visit ?? 4.??Hx of adenomatous colonic polyps??Z86.010 Repeat colonoscopy in 2024??or sooner if calprotectin??is elevated. Ordered: dicyclomine 10 mg oral capsule, 10 mg = 1 cap, Oral, QID, Take 1 tablet by mouth 30 to 60 minutes before meals and before bed, # 120 cap, 1 Refill(s), Pharmacy: [facility], 152.4, cm, 01/30/24 9:43:00 EDT, Height, 74.6, kg, 01/30/24 9:46:00 EDT, Weight Dosing ondansetron 4 mg oral tablet, 4 mg = 1 tab, Oral, every 8 hr, Take 1 tablet by mouth 3 times daily as needed for nausea., # 90 tab, 1 Refill(s), Pharmacy: [facility], 152.4, cm, 01/30/24 9:43:00 EDT, Height, 74.6, kg, 01/30/24 9:46:00 EDT, Weight Dosing Calprotectin, Fecal LC, Stool, Routine Collect, 01/30/24, Once, Lab Collect, Print Label, Functional dyspepsia IBS (irritable bowel syndrome) Status post cholecystectomy Hx of adenomatous colonic polyps Chronic diarrhea Nausea and vomiting, Order for future visit ?? 5.??Chronic diarrhea??K52.9 See above. Ordered: dicyclomine 10 mg oral capsule, 10 mg = 1 cap, Oral, QID, Take 1 tablet by mouth 30 to 60 minutes before meals and before bed, # 120 cap, 1 Refill(s), Pharmacy: [facility], 152.4, cm, 01/30/24 9:43:00 EDT, Height, 74.6, kg, 01/30/24 9:46:00 EDT, Weight Dosing ondansetron 4 mg oral tablet, 4 mg = 1 tab, Oral, every 8 hr, Take 1 tablet by mouth 3 times daily as needed for nausea., # 90 tab, 1 Refill(s), Pharmacy: [facility], 152.4, cm, 01/30/24 9:43:00 EDT, Height, 74.6, kg, 01/30/24 9:46:00 EDT, Weight Dosing Calprotectin, Fecal LC, Stool, Routine Collect, 01/30/24, Once, Lab Collect, Print Label, Functional dyspepsia IBS (irritable bowel syndrome) Status post cholecystectomy Hx of adenomatous colonic polyps Chronic diarrhea Nausea and vomiting, Order for future visit ?? 6.??Nausea and vomiting??R11.2 Trial of ondansetron.?? If no improvement??order gastric emptying scan.?? Patient will return to clinic??in 8 weeks. Ordered: dicyclomine 10 mg oral capsule, 10 mg = 1 cap, Oral, QID, Take 1 tablet by mouth 30 to 60 minutes before meals and before bed, # 120 cap, 1 Refill(s), Pharmacy: [facility], 152.4, cm, 01/30/24 9:43:00 EDT, Height, 74.6, kg, 01/30/24 9:46:00 EDT, Weight Dosing ondansetron 4 mg oral tablet, 4 mg = 1 tab, Oral, every 8 hr, Take 1 tablet by mouth 3 times daily as needed for nausea., # 90 tab, 1 Refill(s), Pharmacy: [facility], 152.4, cm, 01/30/24 9:43:00 EDT, Height, 74.6, kg, 01/30/24 9:46:00 EDT, Weight Dosing Calprotectin, Fecal LC, Stool, Routine Collect, 01/30/24, Once, Lab Collect, Print Label, Functional dyspepsia IBS (irritable bowel syndrome) Status post cholecystectomy Hx of adenomatous colonic polyps Chronic diarrhea Nausea and vomiting, Order for future visit ?? Voice recognition software utilized which may result in minor blanking machine operator errors. Future Orders Calprotectin, Fecal LC, Stool, Routine Collect, 01/30/24, Once, Lab Collect, Print Label, Functional dyspepsia IBS (irritable bowel syndrome) Status post cholecystectomy Hx of adenomatous colonic polyps Chronic diarrhea Nausea and vomiting, Order for future visit Problem List/Past Medical History Ongoing Adjustment disorder with mixed anxiety and depressed mood Anxiety Arthritis Arthritis of knee Astasia-abasia Bipolar affective disorder Bloating Cerebral aneurysm Cerebral aneurysm without rupture Chronic diarrhea Depression Diplopia Diverticulitis Diverticulosis Esophagitis Esophoria Functional dyspepsia Functional neurological symptom [...] leg syndrome Right internal carotid artery aneurysm Seasonal affective disorder Status post cholecystectomy Subclinical hyperthyroidism Tobacco use Vitamin D deficiency Historical No qualifying data Procedure/Surgical History ???Colonoscopy (08/24/2020)???EGD - esophagogastroduodenoscopy (08/24/2020)???Cholecystectomy;???Right oophorectomy Medications ALPRAZolam 1 mg oral tablet, 1 mg= 1 tab, Oral, Daily, PRN aspirin 81 mg oral delayed release tablet, 81 mg= 1 tab, Oral, Daily dicyclomine 10 mg oral capsule, 10 mg= [...] at bedtime Viibryd 40 mg oral tablet Vraylar 1.5 mg oral capsule, 3 mg= [...] Hyperlipidemia: Father. Stroke: Mother. Electronically Signed on 01/30/24 10:06 AM Emerson Hernandez MD Patient Care team information Care Team Personnel Name: MALGORZATA RAMIREZ NP Position: No Access Member Role: Primary Care Physician Address: Address: [address] [place] [id number] [place] [address]
--- OUTSIDE RECORDS SUMMARY | 2024-07-30 16:32 | XMS_ITS | Encounter Summary ---
Author Organization [facility] [place] [address] Care Team Providers Care Supervisor Mending Name Role Phone Malgorzata Orellana APRN Primary Care Provider [phone] Reason for Visit * Reason Onset Date Comments Appointment 01/04/2024 Encounter Details Date Type Department Care Team (Late st Contact Info) Description 01/04/2024 [place] [id number] Naima John, RN Appointment Social History Tobacco Use Types Packs/Day [...] encounter Miscellaneous Notes * Telephone Encounter - Naima John RN - 01/04/2024 1:08 PM EST PC to [facility] regarding scheduling MRI Angiogram ordered 06/22/23 by Gricel Stoddard APRN (expected 01/21/24). Pt agrees to schedule and was transferred to [phone]. documented in this encounter Plan of Treatment Upcoming Encounters Date Type Department Care Team (Late st Contact Info) Description 01/24/2025 9:00 AM EDT TH Visit (TeleHealth) [place] [address] Gricel Stoddard APRN [facility] [place] [address] documented as of this encounter Visit Diagnoses Not on filedocumented in this encounter Care Teams Supervisor Mending Relationship Specialty Start Date End Date Malgorzata Orellana APRN [address] [place] [address] PCP - General Internal Medicine 06/22/23 documented as of this encounter
--- OUTSIDE RECORDS SUMMARY | 2024-07-30 16:32 | XMS_ITS | Encounter Summary ---
Author [place] [address] Care Team Providers Care Night Nurse Name Role Phone Malgorzata Orellana APRN Primary Care Provider Encounter Details Date Type Department Care Team (Latest Contact Info) Description 06/22/2023 Travel Social History Tobacco Use Types Packs/Day [...] AM EDT TH Visit (TeleHealth) [place] [address] Gricel Stoddard APRN [facility] [place] [address] documented as of this encounter Visit Diagnoses Not on filedocumented in this encounter Care Teams Night Nurse Relationship Specialty Start Date End Date Malgorzata Orellana, FINANCIAL INVESTMENT MANAGER [address] [place] [address] PCP - General Internal Medicine 06/22/23 documented as of this encounter
--- OUTSIDE RECORDS SUMMARY | 2024-07-30 16:32 | XMS_ITS | Encounter Summary ---
[place] [address] Care Team Providers Care Scheduling Clerk Name Role Phone Malgorzata Orellana APRN Primary Care Provider Reason for Referral * Diagnostic Test (Routine) - Closed Specialty Diagnoses / Procedures Referred By Contac t Referred To Contact Radiology Diagnoses Right internal carotid artery aneurysm Procedures MRI Angiogram Head wo Contrast (Generic) Gricel Stoddard APRN [facility] [place] [address] [place] [address] Referral ID Status Reason Start Date Expiration Date V isits Requested Visits Authorized [id number] Closed Specialty Service Requested 04/27/2023 10/24/2023 1 1 Reason for Visit * Diagnostic Test (Routine) - Closed Specialty Diagnoses / Procedures Referred By Contac t Referred To Contact Radiology Diagnoses Right internal carotid artery aneurysm Procedures MRI Angiogram Head wo Contrast (Generic) Gricel Stoddard APRN [facility] [place] [address] [place] [address] Referral ID Status Reason Start Date Expiration Date V isits Requested Visits Authorized [id number] Closed Specialty Service Requested 04/27/2023 10/24/2023 1 1 Encounter Details Date Type Department Care Team (Latest Contact Info) Description 06/22/2023 7:43 AM EDT - 06/22/2023 11:59 PM EDT [place] [address] Gricel Stoddard APRN [facility] [place] [address] Right internal carotid artery aneurysm Discharge Disposition: [...] Sig Dispensed Refills Start Date End Date aspirin EC 81 mg EC (DR) tablet [...] AM EDT TH Visit (TeleHealth) [place] [address] Gricel Stoddard APRN [facility] [address] documented as of this encounter Procedures Procedure Name Priority Date/Time Associated Diagnosis Comments MRI HEAD ANGIOGRAM WO CONTRAST Routine 06/22/2023 8:50 AM EDT Right internal carotid artery aneurysm documented in this encounter Results * MRI Angiogram Head wo Contrast (Generic) (06/22/2023 8:50 AM EDT) Anatomical Region Laterality Modality Head Magnetic Resonan ce Impressions 06/22/2023 3:23 PM EDT 1. ??Artifactual narrowing of the right paraclinoid ICA due to stent. No recurrence of paraclinoid aneurysm. 2. ??2 mm intra-articular inferiorly projecting aneurysm at the right ICA terminus. 3. 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 Thank you for letting us participate in the care of this patient. ??If you are a health care provider and have any questions regarding this report, please contact the number below. ??For patients who have questions please contact the health critical care unit nurse that requested your imaging first. ? Electronically signed by: Kimberly Denson MD, [facility] ([phone]), at 06/22/2023 3:23 PM Narrative 06/22/2023 3:23 PM EDT EXAMINATION: MRI ANGIOGRAM HEAD WO CONTRAST (GENERIC) CLINICAL HISTORY: Cerebral aneurysm, follow-up DERRICK stent/coil treatment of aneurysm, eval for change TECHNIQUE: MRA of the head performed without contrast. 3-D MIP reconstructions were created. COMPARISON: MRI brain October 22, 2021. Cerebral angiogram November 21, 2022. CTA head November 08, 2021 FINDINGS: Mild narrowing of the right supraclinoid and paraclinoid internal carotid artery likely artifactual due to stent. No recurrence of medially projecting paraclinoid ICA aneurysm seen on prior MRI and CTA. There is a 2 mm anteroinferiorly projecting aneurysm at the right ICA terminus. No hemodynamically significant stenosis in the sun'aq of Hernandez or visible branch vessels. Vertebral arteries are codominant. On the left, there is a persistent trigeminal artery, which rather than anastomosing with the vertebrobasilar system, parallels the course of the left superior cerebellar artery. Procedure Note Kimberly Denson MD - 06/22/2023 EXAMINATION: MRI ANGIOGRAM HEAD WO CONTRAST (GENERIC) CLINICAL HISTORY: Cerebral aneurysm, follow-up DERRICK stent/coil treatment of aneurysm, eval for change TECHNIQUE: MRA of the head performed without contrast. 3-D MIP reconstructions were created. COMPARISON: MRI brain October 22, 2021. Cerebral angiogram November 21, 2022. CTAhead November 08, 2021 FINDINGS: Mild narrowing of the right supraclinoid and paraclinoid internal carotidartery likely artifactual due to stent. No recurrence of medially projecting paraclinoid ICA aneurysm seen on prior MRI and CTA. There is a 2 mm anteroinferiorly projecting aneurysm at the right ICAterminus. No hemodynamically significant stenosis in the sun'aq of Hernandez orvisible branch vessels. Vertebral arteries are codominant. On the left, there is a persistent trigeminal artery, which rather than anastomosing with the vertebrobasilar system, parallels the course of theleft superior cerebellar artery. IMPRESSION 1. Artifactual narrowing of the right paraclinoid ICA due to stent. No recurrence of paraclinoid aneurysm. 2. 2 mm intra-articular inferiorly projecting aneurysm at the right ICA terminus. 3. Persistent left trigeminal artery, which parallels the course of theleft superior cerebellar artery, without vertebrobasilar anastomosis. Thank you for letting us participate in the care of this patient. If youare a health care provider and have any questions regarding this report,please contact the number below. For patients who have questions please contactthe health critical care unit nurse that requested your imaging first. Electronically signed by: Kimberly Denson MD, [facility]([phone]), at 06/22/2023 3:23 PM Gricel Stoddard APRN [facility] MRI ORDERABLES documented in this encounter Visit Diagnoses Diagnosis Right internal carotid artery aneurysm Cerebral aneurysm, nonruptured documented in this encounter Care Teams Scheduling Clerk Relationship Specialty Start Date End Date Malgorzata Orellana APRN [address] [place] [address] PCP - General Internal Medicine 06/22/23 documented as of this encounter
--- OUTSIDE RECORDS SUMMARY | 2024-07-30 16:32 | XMS_ITS | Encounter Summary ---
[place] [address] Care Team Providers Care Design Agent Name Role Phone Unavailable Primary Care Provider Unavailabl e Encounter Details Date Type Department Care Team (Latest Contact Info) Description 05/16/2023 Travel Social History Tobacco Use Types Packs/Day [...] AM EDT TH Visit (TeleHealth) [place] [address] Gricel Stoddard APRN [facility] [place] [address] [address] documented as of this encounter Visit Diagnoses Not on filedocumented in this encounter
--- OUTSIDE RECORDS SUMMARY | 2024-07-30 16:32 | XMS_ITS | Encounter Summary ---
[place] [address] Care Team Providers Care Woodwind Reeds Cutter Name Role Phone Malgorzata Orellana APRN Primary Care Provider Reason for Referral * Consultation (Routine) - Authorized Specialty Diagnoses / Procedures Referred By Jennifer guillen Referred To Contact Gastroenterology Diagnoses Gastroparesis Gastroparesis (ROGER to motility kandi) Elizabeth Fletcher APRN [address] [place] [address] [facility] [address] [place] [address] Referral ID Status Reason Start Date Expiration Date Visits Requested Visits Authorized [id number] Authorized Consult, Test & Treat PCP Updated and/or Approved 06/06/2024 06/06/2025 6 6 Encounter Details Date Type Department Care Team (Late st Contact Info) Description 06/19/2024 Transcribe Orders eDH Incoming Referrals [phone] Elizabeth Fletcher APRN [address] [place] [address] Gastroparesis Social History Tobacco Use Types Packs/Day Years [...] AM EDT TH Visit (TeleHealth) [place] [address] Gricel Stoddard APRN [facility] [place] [address] Scheduled Referrals Name Type Priority Associated Diagnoses Order Schedule Referral to Gastroenterology Outpatient Referral Routine Gastroparesis Ordered: 06/19/2024 documented as of this encounter Visit Diagnoses Diagnosis Gastroparesis documented in this encounter Care Teams Woodwind Reeds Cutter Relationship Specialty Start Date End Date Malgorzata [facility]rellana APRN [address] [facility] [place] [address] PCP - General Internal Medicine 06/22/23 documented as of this encounter
--- OUTSIDE RECORDS SUMMARY | 2024-07-30 16:32 | XMS_ITS | Encounter Summary ---
Author Organization [facility] [place] [address] Care Team Providers Care General Foundry Worker Name Role Phone Malgorzata Orellana APRN Primary Care Provider [phone] Encounter Details Date Type Department Care Team (Late st Contact Info) Description 07/10/2023 Telephone [place] [phone] [facility] [place] [address] Social History Tobacco Use Types Packs/Day Years [...] Telephone Encounter - Monica Butcher Bernarda - 07/10/2023 8:41 AM EDT Recall entered for January or February 2024 ----- Message from Gricel Stoddard APRN sent at 07/07/2023 5:17 PM EDT ----- February 2024 MRA head, OV with AP documented in this encounter Plan of Treatment Upcoming Encounters Date Type Department Care Team (Late st Contact Info) Description 01/24/2025 9:00 AM EDT TH Visit (TeleHealth) [place] [address] [facility] [place] [address] documented as of this encounter Visit Diagnoses Not on filedocumented in this encounter Care Teams General Foundry Worker Relationship Specialty Start Date End Date Malgorzata Orellana APRN [address] [place] [address] PCP - General Internal Medicine 06/22/23 documented as of this encounter
--- OUTSIDE RECORDS SUMMARY | 2024-07-30 16:33 | XMS_ITS | Encounter Summary ---
[place] [address] Care Team Providers Care Egyptologist Name Role Phone Luz Odalys TOSHIA Primary Care Provider Encounter Details Date Type Department Care Team (Late st Contact Info) Description 02/22/2022 Telephone [place] [address] Tenisha Parker Social History Tobacco Use Types Packs/Day Years Used Date Smoking Tobacco: Every Day Cigarettes Smokeless Tobacco: Never Alcohol Use Standard Drinks/Week Comments Yes 1 (1 standard drink = 0.6 oz pur e alcohol) 7 a week Sex and Gender Information Value Date Recorded Sex Assigned at Female 12/12/2021 11:37 AM EST Gender Identity Female 11/16/2020 12:55 PM EST Sexual Orientation Straight 02/09/2022 11 :36 AM EDT documented as of this encounter Miscellaneous Notes * Telephone Encounter - Tenisha Parker - 02/22/2022 12:52 PM EDT Franchesca Dickson [phone] Diagnosis/Indication: schedule EGD/colonoscopy with MAC 1. Have you ever had a/an Upper Endoscopy & Colonoscopy before? Yes: Date 03/2019 in [place] If yes, did you have any problems with the procedure? No What type of sedation was used: Other: unknown 2. Do you take any blood thinners or have you been diagnosed with a bleeding disorder that increases your risk of bleeding with procedures? No 3. [...] to patient: You must have a responsible alliance party who will drive you to your procedure, stay oncampus for the entire duration of your procedure, [...] AM EDT TH Visit (TeleHealth) [place] [address] Gricel Stoddard APRN [facility] [place] [address] documented as of this encounter Visit Diagnoses Not on filedocumented in this encounter Care Teams Egyptologist Relationship Specialty Start Date End Date Odalys Escobar, TOSHIA [address] [facility] [place] [address] PCP - General Family Medicine 11/26/20 02/22/23 documented as of this encounter
--- OUTSIDE RECORDS SUMMARY | 2024-07-30 16:33 | XMS_ITS | Encounter Summary ---
Author Organization Formerly [facility] [place] [address] Care Team Providers Care Sintering Press Operator Name Role Phone Luz Odalys TOSHIA Primary Care Provider Encounter Details Date Type Department Care Team (Late st Contact Info) Description 04/05/2022 Telephone [place] [phone] Marisel Herbert PA [facility] [place] [address] Social History Tobacco Use Types Packs/Day Years [...] encounter Miscellaneous Notes * Telephone Encounter - Madison Stoddard - 04/08/2022 10:37 AM EDT Pt returning VM. Rescheduled TOV/HCK w/ALP on 05/04/2022 * Telephone Encounter - Monica Butcher - 04/08/2022 9:15 AM EDT Images from the original note were not included. LM to resched [place] HCK on 05/04 to a TOV/HCK with Gricel ~~~~~~~~~~~~~~~~~~~~~~~~~~~~~~~ HCK TOV with AP in 4 weeks, thanks Received: Today Gricel Stoddard APRN P [facility] Cake Press Operator Helper ?? Previous Messages * Telephone Encounter - Monica Butcher - 04/05/2022 12:45 PM EDT Images from the original note were not included. Scheduled for 05/04 at 1pm, will be on d/c paperwork, pt still admitted Marisel Herbert, JACOBY P [facility] [place] ?? Comments f/u dr. meneses 4 weeks documented in this encounter Plan of Treatment Upcoming Encounters Date Type Department Care Team (Late st Contact Info) Description 01/24/2025 9:00 AM EDT TH Visit (TeleHealth) [place] [address] Gricel Stoddard APRN [facility] [address] documented as of this encounter Visit Diagnoses Not on filedocumented in this encounter Care Teams Sintering Press Operator Relationship Specialty Start Date End Date Odalys Escobar APRN [address] [place], [place] [address] PCP - General Family Medicine 11/26/20 02/22/23 documented as of this encounter
--- OUTSIDE RECORDS SUMMARY | 2024-07-30 16:33 | XMS_ITS | Encounter Summary ---
[place] [address] Care Team Providers Care Top Frame Maker Name Role Phone Odalys Escobar APRN Primary Care Provider [phone] Reason for Referral * Diagnostic Test (Routine) - Closed Specialty Diagnoses / Procedures Referred By Jennifer guillen Referred To Contact Radiology Diagnoses Right internal carotid artery aneurysm Procedures IR Arteriogram Cerebral Gricel Stoddard APRN [facility] [address] [place] [address] Referral ID Status Reason Start Date Expiration Date V isits Requested Visits Authorized [id number] Closed Specialty Service Requested 05/13/2022 2023 1 1 Encounter Details Date Type Department Care Team (Late st Contact Info) Description 05/13/2022 Orders [place] [address] Gricel Stoddard APRN [facility] [place] [address] Right internal carotid artery aneurysm [...] AM EDT TH Visit (TeleHealth[place] [address] Gricel Stoddard APRN [facility] [place] [address] documented as of this encounter Results * IR Arteriogram Cerebral (11/21/2022 1:43 PM EST) Anatomical Region Laterality Modality X-Ray Angiograph y Addenda Addendum by Ang Linares MD on 01/11/2023 8:51 AM EST --------ADDENDUM #1-------- Addendum: Under anesthesia below, the Should read: ANESTHESIA: Due to the painful nature of the procedure, moderate sedation provided with split doses of Versed and fentanyl administered during continuous monitoring of patient vital signs by angiography nursing. I was present during the intraservice time as documented by the IR Nurse. Thank you for letting us participate in the care of this patient. ??If you are a health care provider and have any questions regarding this report, please contact the number below. ??For patients who have questions please contact the health congregational care pastor that requested your imaging first. ? --------ORIGINAL REPORT -------- OPERATORS: Chriss Reyna MD PGY-5 (resident), Dr. Ang Linares (attending). PROCEDURE: 1. Cerebral angiogram. 2. Mynx closure of femoral access ANESTHESIA: General anaesthesia provided by the anaesthesia service. EBL: <20 ml CONTRAST: Approximately 50 mL Visipaque-320. RADIATION EXPOSURE: A-plane 61.3 mGy; B plane 27.0 mGy. MATERIALS: Micropuncture set, 0.035 125 cm Glidewire, 0.035 inch J-wire, 5 Greek [place] sheath, 5Fr vert catheter, Mynx vascular closure device. TECHNIQUE: The patient was brought to the angiography suite. The right groin was sterilely prepped and draped. Using micropuncture set, and ultrasound guidance, the femoral artery was accessed and the 5 Greek pinnacle sheath was placed, flushed, and connected to a continuous heparinized saline infusion. 5 Greek vert catheter was positioned in the descending aorta over the 3 J-wire, the wire was removed, and the catheter connected to continuous heparinized saline infusion. Catheter was advanced over the aortic arch using the Glidewire, and the right common carotid, right internal carotid artery were sequentially selected and biplane angiography performed. Roadmap angiogram of the right common femoral artery was then performed through the sheath. The sheath was removed with successful deployment of Mynx vascular closure device. FINDINGS: RIGHT COMMON CAROTID ARTERY ROADMAP INJECTION: Visualized common carotid, carotid bifurcation, and cervical ICA are normal in caliber. RIGHT INTERNAL CAROTID ARTERY INJECTION: Intracranial internal carotid arteries normal in caliber. Widely patent right ICA stent. No filling of the right paraclinoid ICA aneurysm. The MCA, KAYLA, and branches are normal. No evidence of new aneurysm or vascular malformation. Common femoral artery roadmap injection: Visualized common femoral artery is normal in caliber. Puncture is above the bifurcation. IMPRESSION: 1. ??Patent right ICA stent without filling of the paraclinoid ICA aneurysm. I have personally reviewed the image(s) and the resident's interpretation and agree with the findings, Ang Linares MD at 11/22/2022 3:08 PM Thank you for letting us participate in the care of this patient. ??If you are a health care provider and have any questions regarding this report, please contact the number below. ??For patients who have questions please contact the health congregational care pastor that requested your imaging first. ? Impressions 11/22/2022 3:08 PM EST 1. ??Patent right ICA stent without filling of the paraclinoid ICA aneurysm. I have personally reviewed the image(s) and the resident's interpretation and agree with the findings, Ang Linares MD at 11/22/2022 3:08 PM Thank you for letting us participate in the care of this patient. ??If you are a health care provider and have any questions regarding this report, please contact the number below. ??For patients who have questions please contact the health congregational care pastor that requested your imaging first. ? Narrative 11/22/2022 3:08 PM EST OPERATORS: Chriss Reyna MD PGY-5 (resident), Dr. Ang Linares (attending). PROCEDURE: 1. Cerebral angiogram. 2. Mynx closure of femoral access ANESTHESIA: General anaesthesia provided by the anaesthesia service. EBL: <20 ml CONTRAST: Approximately 50 mL Visipaque-320. RADIATION EXPOSURE: A-plane 61.3 mGy; B plane 27.0 mGy. MATERIALS: Micropuncture set, 0.035 125 cm Glidewire, 0.035 inch J-wire, 5 Greek [place] sheath, 5Fr vert catheter, Mynx vascular closure device. TECHNIQUE: The patient was brought to the angiography suite. The right groin was sterilely prepped and draped. Using micropuncture set, and ultrasound guidance, the femoral artery was accessed and the 5 Greek pinnacle sheath was placed, flushed, and connected to a continuous heparinized saline infusion. 5 Greek vert catheter was positioned in the descending aorta over the 3 J-wire, the wire was removed, and the catheter connected to continuous heparinized saline infusion. Catheter was advanced over the aortic arch using the Glidewire, and the right common carotid, right internal carotid artery were sequentially selected and biplane angiography performed. Roadmap angiogram of the right common femoral artery was then performed through the sheath. The sheath was removed with successful deployment of Mynx vascular closure device. FINDINGS: RIGHT COMMON CAROTID ARTERY ROADMAP INJECTION: Visualized common carotid, carotid bifurcation, and cervical ICA are normal in caliber. RIGHT INTERNAL CAROTID ARTERY INJECTION: Intracranial internal carotid arteries normal in caliber. Widely patent right ICA stent. No filling of the right paraclinoid ICA aneurysm. The MCA, KAYLA, and branches are normal. No evidence of new aneurysm or vascular malformation. Common femoral artery roadmap injection: Visualized common femoral artery is normal in caliber. Puncture is above the bifurcation. Procedure Note Ang Linares MD - 11/22/2022 OPERATORS: Chriss Reyna MD PGY-5 (resident), Dr. Ang Linares(attending). PROCEDURE: 1. Cerebral angiogram. 2. Mynx closure of femoral access ANESTHESIA: General anaesthesia provided by the anaesthesia service. EBL: <20 ml CONTRAST: Approximately 50 mL Visipaque-320. RADIATION EXPOSURE: A-plane 61.3 mGy; B plane 27.0 mGy. MATERIALS: Micropuncture set, 0.035 125 cm Glidewire, 0.035 inch J-wire,5 Greek [place] sheath, 5Fr vert catheter, Mynx vascular closure device. TECHNIQUE: The patient was brought to the angiography suite. The rightgroin was sterilely prepped and draped. Using micropuncture set, and ultrasoundguidance, the femoral artery was accessed and the 5 Greek pinnacle sheath wasplaced, flushed, and connected to a continuous heparinized saline infusion. 5French vert catheter was positioned in the descending aorta over the 3 J-wire,the wire was removed, and the catheter connected to continuous heparinized saline infusion. Catheter was advanced over the aortic arch using the Glidewire,and the right common carotid, right internal carotid artery weresequentially selected and biplane angiography performed. Roadmap angiogram of theright common femoral artery was then performed through the sheath. The sheathwas removed with successful deployment of Mynx vascular closure device. FINDINGS: RIGHT COMMON CAROTID ARTERY ROADMAP INJECTION: Visualized commoncarotid, carotid bifurcation, and cervical ICA are normal in caliber. RIGHT INTERNAL CAROTID ARTERY INJECTION: Intracranial internal carotidarteries normal in caliber. Widely patent right ICA stent. No filling of theright paraclinoid ICA aneurysm. The MCA, KAYLA, and branches are normal. Noevidence of new aneurysm or vascular malformation. Common femoral artery roadmap injection: Visualized common femoral arteryis normal in caliber. Puncture is above the bifurcation. IMPRESSION 1. Patent right ICA stent without filling of the paraclinoid ICAaneurysm. I have personally reviewed the image(s) and the resident's interpretationand agree with the findings, Ang Linares MD at 11/22/2022 3:08 PM Thank you for letting us participate in the care of this patient. If youare a health care provider and have any questions regarding this report,please contact the number below. For patients who have questions please contactthe health congregational care pastor that requested your imaging first. Gricel Stoddard APRN IMG IR ORDERABLES documented in this encounter Visit Diagnoses Diagnosis Right internal carotid artery aneurysm Cerebral aneurysm, nonruptured Right internal carotid artery aneurysm Cerebral aneurysm, nonruptured documented in this encounter Care Teams Top Frame Maker Relationship Specialty Start Date End Date Odalys Escobar, COMMUNITY SERVICE PATROL OFFICER [address] [place] [address] PCP - General Family Medicine 11/26/20 02/22/23 documented as of this encounter
--- OUTSIDE RECORDS SUMMARY | 2024-07-30 16:33 | XMS_ITS | Encounter Summary ---
[place] [address] Care Team Providers Care Local Operator Name Role Phone Odalys Escobar APRN Primary Care Provider [phone] Encounter Details Date Type Department Care Team (Latest Contact Info) Description 11/14/2022 Travel Social History Tobacco Use Types Packs/Day [...] AM EDT TH Visit (TeleHealth) [place] [address] Gricel Stoddard APRN [facility] [place] [address] documented as of this encounter Visit Diagnoses Not on filedocumented in this encounter Care Teams Local Operator Relationship Specialty Start Date End Date Odalys Escobar [place] [address] [place] [address] PCP - General Family Medicine 11/26/20 02/22/23 documented as of this encounter
--- OUTSIDE RECORDS SUMMARY | 2024-07-30 16:33 | XMS_ITS | Encounter Summary ---
Author Organization [facility]ly [facility] [place] [address] Care Team Providers Care Executive Chairman Of The Board Name Role Phone Odalys Escobar APRN Primary Care Provider [phone] Reason for Visit * Consultation (Routine) - Closed Specialty Diagnoses / Procedures Referred By Jennifer t Referred To Contact Gastroenterology Diagnoses Persistent depressive disorder Bipolar affective disorder, remission status unspecified Diarrhea, unspecified type Irritable bowel syndrome with diarrhea Bloating Poor appetite Early satiety Unintentional weight loss low fodmap diet Daphnie Sabillon APRN [facility] [place] [address] [facility] [place] [address] Referral ID Status Reason Start Date Expiration Date V isits Requested Visits Authorized [id number] Closed Continuity of Care 01/03/2022 01/03/2023 1 1 Encounter Details Date Type Department Care Team (Late st Contact Info) Description 02/03/2022 2:00 PM EDT TH Visit (TeleHealth) [place] [address] [facility] [place] [address] Irritable bowel syndrome with diarrhea; Bloating; Abdominal cramping Social History Tobacco Use Types Packs/Day Years [...] as of this encounter Progress Notes * Chela Edwards RD - 02/03/2022 2:00 PM EDT Patient seen with myself and Emily Quiroga, buyer internship. I agree with the assessment and plan outlined in her note. * Emily Quiroga - 02/03/2022 2:00 PM EDT [...] AM EDT TH Visit (TeleHealth) [place] [address] Gricel Stoddard APRN [facility] [place] [address] Scheduled Referrals Name Type Priority Associated Diagnoses Orde r Schedule Referral to Nutrition Services Outpatient Referral Routine Persistent depressive disorder Bipolar affective disorder, remission status unspecified Diarrhea, unspecified type Irritable bowel syndrome with diarrhea Bloating Poor appetite Early satiety Unintentional weight loss Ordered: 01/03/2022 documented as of this encounter Visit Diagnoses Diagnosis Irritable bowel syndrome with diarrhea Irritable bowel syndrome Bloating Flatulence, eructation, and gas pain Abdominal cramping Abdominal pain, unspecified site documented in this encounter Care Teams Executive Chairman Of The Board Relationship Specialty Start Date End Date Odalys Escobar, TOSHIA [address] [place] [address] PCP - General Family Medicine 11/26/20 02/22/23 documented as of this encounter
--- OUTSIDE RECORDS SUMMARY | 2024-07-30 16:33 | XMS_ITS | Encounter Summary ---
Author Organization [facility] [place] [address] Care Team Providers Care Merchandiser Seasonal Name Role Phone LuzOdalys TOSHIA Primary Care Provider [phone] Encounter Details Date Type Department Care Team (Late st Contact Info) Description 04/29/2022 Telephone [place] [address] Katelyn Palafox Social History Tobacco Use Types Packs/Day Years [...] encounter Miscellaneous Notes * Telephone Encounter - Katie Haney RN - [...] she can. She agreed to this plan. Alsodiscussed with Gricel Stoddard and she agrees with this plan. * Telephone Encounter - Katelyn Palafox - 04/29/2022 10:10 AM EDT Caller: Patient Best number to reach caller: [phone] Reason for call: Patient calling today complaining of frequent headaches over past 4 days. Had aneurysm clip done 04/04 and asks if this could be related Recent Surgery?: 04/04/2022 documented in this encounter Plan of Treatment Upcoming Encounters Date Type Department Care Team (Late st Contact Info) Description 01/24/2025 9:00 AM EDT TH Visit (TeleHealth) [place] [address] Gricel Stoddard APRN [facility] [place] [address] documented as of this encounter Visit Diagnoses Not on filedocumented in this encounter Care Teams Merchandiser Seasonal Relationship Specialty Start Date End Date Odalys Escobar APRN [address] [place] [address] PCP - General Family Medicine 11/26/20 02/22/23 documented as of this encounter
--- OUTSIDE RECORDS SUMMARY | 2024-07-30 16:33 | XMS_ITS | Encounter Summary ---
Author Organization [facility] [place] [address] Care Team Providers Care Spray Gun Sizer Name Role Phone BrittnyOdalys templeton TOSHIA Primary Care Provider [phone] Reason for Visit * Auth/Cert Specialty Diagnoses / Procedures Referred By Jennifer t Referred To Contact Diagnoses Nausea Poor appetite Weight loss Diarrhea chronic nausea, poor appetite, unintentional weight loss and chronic diarrhea. Please biopsy to rule out celiac, IBD/microscopic colitis Procedures PRO UPPER GI ENDOSCOPY, DIAGNOSTIC PRO COLONOSCOPY, DIAGNOSTIC PRO UPPER GI ENDOSCOPY, BIOPSY PRO UP GI ENDOSCOPY, REMV TUMOR, SNARE PRO COLONOSCOPY, REMV LESN, SNARE PRO COLONOSCOPY, BIOPSY PRO ANESTH, UGI ENDOSCOPY NOS PRO ANESTH, LWR INTESTINE, NOS EGD, UPPER GI ENDOSCOPY COLONOSCOPY, DIAGNOSTIC Subhash Luna MD [facility] [place] [address] [facility] Referral ID Status Reason Start Date Expiration Date Visits Re quested Visits Authorized [id number] 1 1 Encounter Details Date Type Department Care Team (Latest Contact Info) Description 05/20/2022 7:41 AM EDT - 05/20/2022 10:58 AM EDT Hospital Encounter [place] [address] Subhash Luna MD [facility] [place] [address] Discharge Disposition: Home Social History Tobacco Use [...] 36.9 ??C (98.4 ??F) 05/20/2022 8:11 AM ED T Respiratory Rate 18 05/20/2022 10:40 AM EDT Oxygen Saturation 97% 05/20/2022 10:40 AM EDT Inhaled Oxygen Concentration - - Weight 63.5 kg (140 lb) 05/20/2022 8:11 AM EDT Height 154 cm (5' 0.63) 05/20/2022 8:11 AM EDT Body Mass Index 26.78 05/20/2022 8:11 AM EDT documented in this encounter Discharge Instructions * Discharge Instructions* Jill Wilson RN - 05/20/2022 10:01 AM EDT [...] the results of your test and your risk for colorectal cancer. You may have a sore [...] Problems such as heavy rectal bleeding may notoccur until several weeks after the test. This isn't common. But it can happen after polyps are olvin yoav. This care sheet gives you a general [...] the day after the test, use an xpvl-zgd-ujyavkt spray or lozenges to numbyour throat. Warm [...] occurs, please contact your doctor. Please call [phone] before 8pm Mon-Fri with problems, questions, or concerns. If you call after 8pm or on weekends, call the Hospital at [phone] and ask for the [employer] concrete plant laborer and the transfer car operator drier will contact that person for you. When should you call for help? Call [phone] anytime you think you may need emergency [...] more? You can view health information on [employer], your personal patient account. Log in or sign up today. Content Version: 12.2 ?? [id number] [employer]. Care instructions adapted under license by [facility]. If you have questions about a medical condition or this instruction, always ask your healthcare professional. [employer] disclaims any warranty or liability for your use of this information. documented in this encounter Medications at Time of Discharge Medication Sig Dispensed Refills Start Date End Date ALPRAZolam (Xanax) 1 mg Tablet Take 1 mg by mouth daily. Extended release acetaminophen (Tylenol) 500 mg Tablet Take 2 tablets by mouth every 6 hours as needed for Pain (mild pain (1-3)). 30 tablet 1 04/05/2022 pregabalin (LYRICA) 150 mg Capsule Take 150 mg by mouth 2 times daily. 03/01/2022 propranoloL (Inderal) 10 mg TabletIndications:Subclin ical hyperthyroidism TAKE ONE TABLET BY MOUTH TWO [...] Take 10 mg by mouth nightly. 05/28/2019 clopidogreL (Plavix) 75 mg Tablet Take 1 tablet by mouth daily. 90 tablet 3 04/06/2022 06/22/2023 aspirin 325 mg Tablet Take 1 tablet by mouth daily. 90 tablet 3 04/06/2022 06/22/2023 methylphenidate (RITALIN) 20 mg Tablet Take 20 mg by mouth daily. 12/16/2021 11/16/2022 documented as of this encounter H&P Notes * Subhash Luna MD - 05/20/2022 8:21 AM [...] AM EDT TH Visit (TeleHealth) [place] [address] Gricel Stoddard APRN [facility] [place] [address] documented as of this encounter Procedures Procedure Name Priority Date/Time Associated Diagnosis Comments SURGICAL PATHOLOGY REPORT Routine 05/20/2022 9:48 AM EDT SPECIMEN TO PATHOLOGY Routine 05/20/2022 9:48 AM EDT SPECIMEN TO PATHOLOGY Routine 05/20/2022 9:48 AM EDT SPECIMEN TO PATHOLOGY Routine 05/20/2022 9:48 AM EDT SPECIMEN TO PATHOLOGY Routine 05/20/2022 9:48 AM EDT Colonoscopy, Biopsy ([id number]) 05/20/2022 9:24 AM EDT Persistent depressive disorder Bipolar affective disorder, remission status unspecified Diarrhea, unspecified type Irritable bowel syndrome with diarrhea Bloating Poor appetite Early satiety Unintentional weight loss Upper Gi Endoscopy, Biopsy ([id number]) 05/20/2022 9:24 AM EDT Persistent depressive disorder Bipolar affective disorder, remission status unspecified Diarrhea, unspecified type Irritable bowel syndrome with diarrhea Bloating Poor appetite Early satiety Unintentional weight loss UPPER GI ENDOSCOPY Routine 05/20/2022 9: 12 AM EDT COLONOSCOPY Routine 05/20/2022 9:12 AM EDT documented in this encounter Results * Surgical Pathology Report (05/20/2022 9:48 AM EDT) Final Diagnosis [id number] ? Location: 4T; EA10; A The signing pathologist has (i) examined the relevant preparation(s) for the specimen(s) and (ii) rendered or confirmed the diagnosis(es). . ?Surgical Pathology DIAGNOSIS A - Duodenal bx's. r/o celiac, biopsy (Multiple): - Duodenal mucosa with focal mild villous blunting, nonspecific. - Separate fragments of ?? duodenal mucosa within normal limits, including preserved villous architecture. B - Gastric bx's. r/o h-pylori, biopsy (Multiple): - ??Gastric antral and fundic gland mucosa with nonspecific reactive gastropathy. - H. pylori organisms are not seen. C - Esoph bx's. r/o EOE, biopsy (Multiple): - ??Esophageal squamous mucosa, within normal limits. D - Non-targeted colon bx's. r/o microscopic colitis, biopsy (Multiple): - Colonic mucosa with mild architectural disarray, non-specific, see Discussion. Electronically signed by: ?Sarahy BLAND PhD, Mari Verified: ??05/24/2022 14:41 ??Pathologist Performed at: ??-[facility] [place], [place], [place] DISCUSSION D - The findings are non-specific and could represent a resolving colitis. SPECIMEN(S) SUBMITTED A - Duodenal bx's. r/o celiac, biopsy (Multiple) B - Gastric bx's. r/o h-pylori, biopsy (Multiple) C - Esoph bx's. r/o EOE, biopsy (Multiple) D - Non-targeted colon bx's. r/o microscopic colitis, biopsy (Multiple) CLINICAL INFORMATION 46-year-old with diarrhea, abdominal pain, nausea/vomiting SPECIMEN PROCESSING A - Labeled/Fixative: Duodenal BX, rule out celiac, formalin. Quantity/Size: Five, ranging from 0.1-0.5 cm. Tissue Description: Soft, pink tissues. Sections/Processi ng: Submitted en toto ??in 1 cassette labeled A1. B - Labeled/Fixative: Gastric BX, rule out H. pylori, formalin. Quantity/Size: Five, ranging from 0.1-0.5 cm. Tissue Description: Soft, pink tissues. Sections/Processi ng: Submitted en toto ??in 1 cassette labeled B1. C - Labeled/Fixative: Esophagus BX, rule out EOE, formalin. Quantity/Size: Three, averaging 0.5 cm. Tissue Description: Soft, pink-white tissues. Sections/Processi ng: Submitted en toto ??in 1 cassette labeled C1. . SPECIMEN PROCESSING D - Labeled/Fixative: Non-targeted colon BX, rule out microscopic colitis, formalin. Quantity/Size: Multiple, ranging from 0.2-0.5 cm. Tissue Description: Soft, pink tissues. Sections/Processi ng: Submitted en toto ??in 2 cassettes labeled D1-D2. ??sns 05/24/2022 2:41 PM EDT [facility] GI Biopsy 05/20/2022 9:48 AM EDT 05/20/2022 9:48 AM EDT GI Biopsy 05/20/2022 9:48 AM EDT 05/20/2022 9:48 AM EDT GI Biopsy 05/20/2022 9:48 AM EDT 05/20/2022 9:48 AM EDT GI Biopsy 05/20/2022 9:48 AM EDT 05/20/2022 9:48 AM EDT Subhash Luna MD PATHOLOGY/CYTOLOGY O LEVI Performing Organization Address [facility] Co de Phone Number [facility] [place] [address] * Specimen to Pathology (05/20/2022 9:48 AM EDT) AP Specimen 05/20/2022 9:48 AM EDT 05/20/2022 9:48 AM EDT Narrative [facility] - 05/20/2022 9:48 AM EDT Specimen requisition ordered. ??Separate Pathology report to follow Subhash Luna MD PATHOLOGY/CYTOLOGY O LEVI Performing Organization Address [facility]/State/[place] [address] * Specimen to Pathology (05/20/2022 9:48 AM EDT) AP Specimen 05/20/2022 9:48 AM EDT 05/20/2022 9:48 AM EDT Narrative [facility] - 05/20/2022 9:48 AM EDT Specimen requisition ordered. ??Separate Pathology report to follow Subhash Luna MD PATHOLOGY/CYTOLOGY O LEVI Performing Organization Address [facility] [place] [address] * Specimen to Pathology (05/20/2022 9:48 AM EDT) AP Specimen 05/20/2022 9:48 AM EDT 05/20/2022 9:48 AM EDT Narrative [facility] - 05/20/2022 9:48 AM EDT Specimen requisition ordered. ??Separate Pathology report to follow Subhash Luna MD PATHOLOGY/CYTOLOGY O LEVI Performing Organization Address [facility] [place] [address] * Specimen to Pathology (05/20/2022 9:48 AM EDT) AP Specimen 05/20/2022 9:48 AM EDT 05/20/2022 9:48 AM EDT [facility] - 05/20/2022 9:48 AM EDT Specimen requisition ordered. ??Separate Pathology report to follow Subhash Luna MD PATHOLOGY/CYTOLOGY O LEVI Performing Organization Address [facility] [place] [address] * UPPER GI ENDOSCOPY (05/20/2022 9:12 AM EDT) UPPER GI ENDOSCOPY [facility] Endoscopy Procedure Date: 05/20/2022 9:12 AM ? Patient Name: Franchesca Dickson ? Date of : 1975 ? Age: 46 ? Order #: [id number] ? Instrument Name: [id number] ? Procedure: ? Upper GI endoscopy Indications: ? Epigastric abdominal pain, ? Dyspepsia, diarrhea and bloating Providers: ? Subhash Luna MD, Victor M Maldonado. ? CHANTELLE Delgado, Stormy Eagle Referring : ?Javed Ramirez, Odalys Escobar Medicines: ? See the Anesthesia note for ? documentation of the administered ? medications Complications: ? No immediate complications. Procedure: ? The procedure, indications, ? benefits, risks and alternatives ? were explained to the patient. ? Specifically discussed were ? potential complications including, ? but not limited to, bleeding, ? perforation, infection, missing a ? cancer, and adverse medication ? reactions. The Endoscope was ? introduced through the mouth, and ? advanced to the third part of ? duodenum The upper GI endoscopy was ? accomplished without difficulty. ? The patient tolerated the procedure ? [...] Biopsied. ? - Z-line regular, 36 cm from the ? incisors. ? - Normal stomach. Biopsied. ? - Normal examined duodenum. ? Biopsied. Recommendation: ?- Await pathology results. ? Attending Participation: ? I personally performed the entire procedure. ? __ Subhash Luna MD 05/20/2022 9:36:59 AM This report has been signed electronically. Number of Addenda: 0 Note Initiated On: 05/20/2022 9:12 AM PROVATION 05/20/2022 9:12 AM EDT Odalys Escobar APRN GENERAL SURGICAL ORD ERABLES PROVATION * COLONOSCOPY (05/20/2022 9:12 AM EDT) COLONOSCOPY [facility] Endoscopy Procedure Date: 05/20/2022 9:12 AM ? Patient Name: Franchesca Dickson ? Date of : 1975 ? Age: 46 ? Order #: [id number] ? Instrument Name: [id number] ? Procedure: ? Colonoscopy Indications: ? Abdominal [...] preparation was evaluated ? using the BBPS ([place] Bowel ? Preparation Scale) with scores of: [...] Escobar APRN GENERAL SURGICAL ORD ERABLES PROVATION documented in this encounter Visit Diagnoses Not on filedocumented in this encounter Administered Medications Inactive Administered Medications - up to 3 most recent administrations Medication Order MAR Action Action Date Dose Rate Site lactated ringers infusion 100 mL/hr, Intravenous, CONTINUOUS, Starting on Mon05/20/22 at 0830, Until Mon05/20/22 at 1053, Endoscopy (Day of Procedure) New Bag 05/20/2022 8:27 AM EDT 100 mL/hr 100 mL/hr documented in this encounter Active and Recently Administered Medications Times are shown in EDT. Continuous Medication Order 05/18/2022 05/19/2022 05/20/2022 lactated ringers infusion (CANCELED) 100 mL/hr, Intravenous, CONTINUOUS, Starting on Mon05/20/22 at 0830, Until Mon05/20/22 at 1053, Endoscopy (Day of Procedure) 0827 (New Bag - Prov ider: Joanie Monte RN) documented in this encounter Care Teams Spray Gun Sizer Relationship Specialty Start Date End Date Odalys Escobar APRN [address] [place] [address] PCP - General Family Medicine 11/26/20 02/22/23 documented as of this encounter
--- OUTSIDE RECORDS SUMMARY | 2024-07-30 16:33 | XMS_ITS | Encounter Summary ---
Author Organization Formerly [facility], [facility] [place] [address] Care Team Providers Care Inspector Metal Can Name Role Phone Odalys Escobar TOSHIA Primary Care Provider [phone] Reason for Visit * Auth/Cert Specialty Diagnoses / Procedures Referred By Jennifer t Referred To Contact Diagnoses Right internal carotid artery aneurysm RIGHT INTERNAL CAROTID ARTERY ANEURYSM Procedures PRO PERM OCCLUSION/EMBOLIZATION, PERCUT, INSIDE SALES PROFESSIONAL @TRANSCATHETER OCCLUSION/EMBOLIZATION FOR TUMOR DESTRUCTION Referral ID Status Reason Start Date Expiration Date Visits Re quested Visits Authorized [id number] 1 1 Encounter Details Date Type Department Care Team (Late st Contact Info) Description 04/04/2022 12:40 PM EDT [place] [address] Johann Macdonald MD [facility] DR ANESTHES[place] [address] Anthony Kim MD [facility] [place] [address] Anesthesia Record Procedure Summary Procedure Name Responsible Anesthesiologist Anesthesia Start Time Anesthesia Stop Time @TRANSCATHETER OCCLUSION/EMBOLIZATIO N FOR TUMOR DESTRUCTION (WRVU 20.12) Johann Macdonald MD 04/04/22 1240 04/04/22 1634 Events Date Time Event Comment 04/04/2022 1234 1240 AN Verify 1240 Start 1246 An Start Data 1255 An Induction 1257 An Intubation 1328 Anesthesia Ready 1429 Heparin 1449 Break/Relief In I assumed ca re for Break Relief before which we: 1. Identified the patient 2. Identified the responsible provider(s) 3. Reviewed the pertinent medical history 4. Discussed the surgical plan and course 5. Reviewed intra-op anesthesia management and issues during anesthesia 6. Set expectations for the relief (and/or post-procedure) period 7. Allowed opportunity for questions and acknowledgement of understanding Johann Macdonald MD 1517 Break/Relief Out 1547 Extubation/LMA Out 1550 Quick Note Waiting on [facility] bed to transfer patient to PACU 1600 Quick Note Right groin sit e oozing. Tech holding pressure on site 1607 an stop data 1608 Quick Note Patient awake a nd alert, denies complaints. Tech holding pressure on oozing groin 1634 Recovery or ICU Handoff Carole ent care was transferred to the destination unit staff after review of the patient's medical history, current anesthetic/surgical status and plan, according to the Provider Handoff Checklist. 1634 Stop Meds Name Total fentaNYL 100 mcg IV Lidocaine 100 mg Propofol 250 mg Rocuronium 70 mg ePHEDrine 45 mg Ondansetron 8 mg Dexamethasone 10 mg Propofol INF 249.38 mg Heparin 7,500 Units Sugammadex 200 mg lactated ringers infusion 700 mL Lactated Ringers 150 mL * Agents Name O2 Air N2O Sevoflurane (et) O2 Auxiliary Flowmeter 2 * Blood No blood administrations on file. Lines, Drains, and Airways Type Details Placement Removal Incision 01/28/22; 1121; Righ t, anterior; wrist; non-laparascopic puncture 01/28/22 1121 by Abiel Ponce, RN (RETIRED) Peripheral IV Line - Single Lumen 04/04/22; 1159; median cubital vein (antecubital fossa), right; [id number] catheter system; Anatomical Landmarks; 20 gauge, 1 in length; distraction, tolerated well, intradermal injection; 1; median cubital vein (antecubital fossa), left; 04/05/22; 1308 04/04/22 1159 by Victor M Shaw RN 04/05/22 1308 by Maia Reed RN ETT Mask Ventilation: Ea sy (1); ETT Type: Cuffed, Oral; ETT Size: 7 mm; Noel Blade: 3; Notes: Asleep, Pre-O2, Stylette; Attempts: 1; Laryngoscopy Grade: 1; ETT Placement Verified By: Auscultation, Capnometry, Visual; Secured at Teeth: 21 cm; Inserted by: Johann Macdonald MD; Removal Date: 04/04/22; Removal Time: 15404/04/22 1257 by Judit Snow CRNA 04/04/22 1547 by Judit Snow CRNA (RETIRED) Peripheral IV Line - Single Lumen 04/04/22; 1306; dorsal arch vein (top of foot), left; [id number] catheter system; Anatomical Landmarks; 20 gauge; Johann Macdonald MD; (under [place]); 2; no longer indicated (per neurosurgery team); 04/04/22; 233804/04/22 1306 by Judit Snow CRNA 04/04/22 2339 by Hoda Morley RN Arterial Line 04/04/22; 1328; dors wily pedis artery, left; 20 gauge; Ultrasound Guidance, Anatomical Landmarks; Yes - US guidance used but Image NOT saved; continuous blood pressure monitoring, other (see comments) (ACT); Sterile Prep, Sterile Gloves; 1; radial artery, left; no longer indicated; 04/04/22; 2339 04/04/22 1328 by Judit Snow CRNA 04/04/22 2339 by Hoda Morley RN Urethral Catheter 04/04/22; 1343; Physician order; 1; 10; 10; none; leg bag to dependent drainage; 04/05/22; 0600 04/04/22 1343 by Jazmin Arellano RN 04/05/22 0600 by Chica Reich RN documented in this encounter Social History Tobacco [...] AM EDT documented as of this encounter OR Notes * Anesthesia Postprocedure Evaluation - Johann Macdonald MD - 04/06/2022 5:07 PM EDT Department of Anesthesiology Post-procedure Note Patient: Franchesca Dickson Procedure Summary Date: 04/04/22 Room / Location: [facility] / [facility] Anesthesia Start: 1240 Anesthesia Stop: 1634 Procedure: @TRANSCATHETER OCCLUSION/EMBOLIZATION FOR TUMOR DESTRUCTION (N/A ) Diagnosis: (RIGHT INTERNAL CAROTID ARTERY ANEURYSM) Surgeons: Sary Bloom MD Responsible Provider: Johann Macdonald MD Anesthesia Type: general ASA Status: 3 All Anesthesia Providers: Anesthesiologist: Johann Macdonald MD PLASTIC MOLDING OPERATOR: Judit Snow CRNA Vitals Value Taken Time BP Temp Pulse Resp SpO2 Pain Level Patient Location: PACU/[facility] Level of Consciousness: Awake and Alert Pain Management: Satisfactory Analgesia PONV: None Cardiovascular Status: At Baseline Respiratory Status: At Baseline Postoperative Fluid Status: Intravascular EUvolemia Possible Anesthetic Complications: NONE apparent at time of evaluation Final Primary Anesthesia Type: General (The anesthetic type performed was the same as planned.) Comments: * Anesthesia Preprocedure Evaluation - Johann Macdonald MD [...] IR Arteriogram Cerebral 01/28/2022 Sary Bloom MD [facility] Social History Tobacco Use ??? [...] since yesterday took her a.m. meds this morning denies any recent URI. Consent was obtained risk explained. Region - Intracranial (vascular) Informed Consent: Anesthetic plan and risks discussed with patient. Plan discussed with PLASTIC MOLDING OPERATOR and attending. PRELIMINARY (based off chart review) [...] AM EDT TH Visit (TeleHealth) [place] [address] Gricel Stoddard APRN [facility] [place] [address] documented as of this encounter Visit Diagnoses Not on filedocumented in this encounter Administered Medications Inactive Administered Medications - up to 3 most recent administrations Medication Order MAR Action Action Date Dose Rate Site dexamethasone (Decadron) injection Intravenous, PRN, Starting on Mon04/04/22 at 1305, Until Mon04/04/22 at 1634, Anesthesia Intra-op, Routine Given 04/04/2022 1:05 PM EDT 10 mg ePHEDrine sulfate (5 mg/mL) multi-dose injection Intravenous, PRN, Starting on Mon04/04/22 at 1352, Until Mon04/04/22 at 1634, Anesthesia Intra-op, Routine Given 04/04/2022 3:26 PM EDT 10 mg Given 04/04/2022 2:33 PM EDT 10 mg Given 04/04/2022 2:09 PM EDT 5 mg fentaNYL (pf) (50 mcg/mL) multi-dose injection Intravenous, PRN, Starting on Mon04/04/22 at 1255, Until Mon04/04/22 at 1634, Anesthesia Intra-op, Routine Given 04/04/2022 2:06 PM EDT 50 mcg Given 04/04/2022 12:55 PM EDT 50 mcg heparin (porcine) (1,000 units/mL) injection Intravenous, PRN, Starting on Mon04/04/22 at 1429, Until Mon04/04/22 at 1634, Anesthesia Intra-op, Routine Given 04/04/2022 2:39 PM EDT 1,500 Uni ts Given 04/04/2022 2:29 PM EDT 6,000 Units lactated ringers infusion 1,000 mL, at 100 mL/hr, Intravenous, CONTINUOUS, Starting on Mon04/04/22 at 1115, Until Mon04/05/22 at 0148, Day of Surgery (Day of Procedure) New Bag 04/04/2022 12:30 PM EDT lactated ringers infusion Intravenous, CONTINUOUS PRN, Starting on Mon04/04/22 at 1328, Until Mon04/04/22 at 1634, Anesthesia Intra-op New Bag 04/04/2022 1:28 PM EDT lidocaine (pf) (Xylocaine) (20 mg/mL) 2% injection syringe Intravenous, PRN, Starting on Mon04/04/22 at 1255, Until Mon04/04/22 at 1634, Anesthesia Intra-op, Routine Given 04/04/2022 12:55 PM EDT 100 mg ondansetron (pf) (Zofran) (2 mg/mL) injection Intravenous, PRN, Starting on Mon04/04/22 at 1305, Until Mon04/04/22 at 1634, Anesthesia Intra-op, Routine Given 04/04/2022 3:32 PM EDT 4 mg Given 04/04/2022 1:05 PM EDT 4 mg propofoL (Diprivan) (10 mg/mL) infusion Intravenous, CONTINUOUS PRN, Starting on Mon04/04/22 at 1305, Until Mon04/04/22 at 1634, Anesthesia Intra-op, Routine New Bag 04/04/2022 1:05 PM EDT 25 mcg/kg/min 10.11 mL/hr propofoL (Diprivan) 10 mg/mL bolus injection (Anesthesia) Intravenous, PRN, Starting on Mon04/04/22 at 1255, Until Mon04/04/22 at 1634, Anesthesia Intra-op Given 04/04/2022 2:06 PM EDT 50 mg Given 04/04/2022 12:55 PM EDT 200 mg rocuronium (Zemuron) (10 mg/mL) multi-dose injection Intravenous, PRN, Starting on Mon04/04/22 at 1255, Until Mon04/04/22 at 1634, Anesthesia Intra-op, Routine Given 04/04/2022 2:06 PM EDT 20 mg Given 04/04/2022 12:55 PM EDT 50 mg sugammadex (Bridion) 100 mg/mL injection Intravenous, PRN, Starting on Mon04/04/22 at 1532, Until Mon04/04/22 at 1634, Anesthesia Intra-op, Routine Given 04/04/2022 3:32 PM EDT 200 mg documented in this encounter Care Teams Inspector Metal Can Relationship Specialty Start Date End Date Odalys Escobar, TOSHIA [address] [place] [address] PCP - General Family Medicine 11/26/20 02/22/23 documented as of this encounter
--- OUTSIDE RECORDS SUMMARY | 2024-07-30 16:33 | XMS_ITS | Encounter Summary ---
[place] [address] Care Team Providers Care Parole Officer Name Role Phone LuzOdalys TOSHIA Primary Care Provider [phone] Encounter Details Date Type Department Care Team (Late st Contact Info) Description 04/07/2022 Telephone [place] [address] Katie Haney RN Social History Tobacco Use Types Packs/Day Years [...] AM EDT Franchesca Dickson 1975 46 y.o. [id number] F/U call s/p EMBOLIZATION OF RIGHT ICA ANEURYSM 04/04/22 Date of discharge: 04/05 Date of call: 5/26 Neuro: alert and oriented: yes Dizzy or [...] AM EDT TH Visit (TeleHealth) [place] [address] Gricel Stoddard APRN [facility] [place] [address] documented as of this encounter Visit Diagnoses Not on filedocumented in this encounter Care Teams Parole Officer Relationship Specialty Start Date End Date Odalys Escobar APRN [address] [place] [address] PCP - General Family Medicine 11/26/20 02/22/23 documented as of this encounter
--- OUTSIDE RECORDS SUMMARY | 2024-07-30 16:33 | XMS_ITS | Encounter Summary ---
Author Organization [facility] [address] Care Team Providers Care Cabinetmaker Maintenance Name Role Phone Nay Escobarh TOSHIA Primary Care Provider [phone] Encounter Details Date Type Department Care Team (Late st Contact Info) Description 11/16/2022 Notes [place] [id number] Gricel Stoddard APRN [facility] [place] [address] Social History Tobacco Use Types Packs/Day Years [...] of this encounter Progress Notes * Gricel Stoddard APRN - 11/16/2022 9:14 AM EST NEURORADIOLOGY BRIEF PRE-PROCEDURE NOTE Name: Franchesca Dickson Date of : 1975 Indication: DERRICK aneurysm, stent assisted embolization Planned Procedure: diagnostic cerebral angiogram Chief Complaint/HPI: Franchesca Dickson is a 47 y.o. female referred for diagnostic cerebral angiogramto confirm endothelialization of Pipeline stent. Allergies: Allergies Allergen Reactions ??? Shellfish Containing Products Anaphylaxis Per pt, she has received contrast dye in CT with no adverse reactions ??? Erythromycin ??? Erythromycin Base CIS - Nausea/Vomiting ??? Paroxetine Hcl CIS - PALPITATIONS, INSOMNIA ??? Sulfa (Sulfonamide Antibiotics) CIS - Hives ??? Sulfur ??? Tree Nut Rash Medications: Current Outpatient Medications: ??? cloZAPine (Clozaril) 100 mg Tablet, , Disp: , Rfl: ??? Vraylar 6 mg Capsule, Take 1 capsule by mouth daily., Disp: , Rfl: ??? OLANZapine (ZyPREXA) 10 mg Tablet, Take 10 mg by mouth daily., Disp: , Rfl: ??? ALPRAZolam (Xanax) 1 mg Tablet, Take 1 mg by mouth daily. Extended release, Disp: , Rfl: ??? clopidogreL (Plavix) 75 mg Tablet, Take 1 tablet by mouth daily., Disp: 90 tablet, Rfl: 3 ??? acetaminophen (Tylenol) 500 mg Tablet, Take 2 tablets by mouth every 6 hours as needed for Pain(mild pain (1-3))., Disp: 30 tablet, Rfl: 1 ??? aspirin 325 mg Tablet, Take 1 tablet by mouth daily., Disp: 90 tablet, Rfl: 3 ??? pregabalin (LYRICA) 150 mg Capsule, Take 150 mg by mouth 2 times daily., Disp: , Rfl: ??? methylphenidate (RITALIN) 20 mg Tablet, Take 20 mg by mouth daily., Disp: , Rfl: ??? propranoloL (Inderal) 10 mg Tablet, TAKE ONE TABLET BY MOUTH TWO TIMES DAILY NEEDED (FOR PALPITATIONS)., Disp: 60 tablet, Rfl: 1 ??? pantoprazole EC (Protonix) 40 mg Tablet, Delayed Release (E.C.), Take 40 mg by mouth daily., Disp: , Rfl: ??? cariprazine (Vraylar) 1.5 mg Capsule, Take 3 mg by mouth daily., Disp: , Rfl: ??? topiramate (Topamax) 100 mg Tablet, Take 100 mg by mouth nightly., Disp: , Rfl: ??? VIIBRYD 40 mg Tablet, TAKE 1 TABLET BY MOUTH ONCE DAILY, Disp: , Rfl: 3 ??? ALPRAZolam (XANAX) 1 mg Tablet, Take 1 mg by mouth as needed., Disp: , Rfl: ??? OLANZapine (ZYPREXA) 5 mg Tablet, Take 10 mg by mouth nightly., Disp: , Rfl: Labs: Platelets Date Value Ref Range Status 01/28/2022 354 145 - 357 x10(3)/mcL Final Creatinine Date Value Ref Range Status 01/28/2022 0.84 0.70 - 1.20 mg/dL Final Imagin04/04/22 angiogram in edh Assessment: 47 y.o. female with the above history. Will proceed as ordered. Labs to be performed day of procedure: Platelet count, creatinine. Medications to discontinue: None, continue ASA and Plavix. Position: supine Sedation: moderate Additional medications for procedure: Lidocaine 1%, radial access Consent: day of procedure Gricel Stoddard APRN 11/16/2022 9:15 AM documented in this encounter Plan of Treatment Upcoming Encounters Date Type Department Care Team (Late st Contact Info) Description 01/24/2025 9:00 AM EDT TH Visit (TeleHealth) [place] [address] Gricel Stoddard APRN [facility] [place] [address] documented as of this encounter Results * Creatinine (11/21/2022 10:58 AM EST) Creatinine 0.94 0.70 - 1.20 mg/dL [facility] Est Glomerular Filtration Rate 76 >=60 mL/min/1. 73 m?? [facility] Comment: This patient's estimated GFR was calculated using the 2020 CKD-EPI equation. The estimated GFR can vary from the measured GFR by up to 30% in the absence of rapidly changing kidney function. Assessment of the estimated GFR is not appropriate when creatinine concentrations are rapidly changing. For clinical situations in which a more precise estimate of GFR is necessary, consider alternative methods of GFR estimation such as a 24-hour urine creatinine clearance. Assignment of CKD stage 1-5 for patients with an eGFR near the transition point between stages may be based on clinical assessment of muscle mass and symptoms in addition to eGFR. Blood 11/21/2022 10:5 8 AM EST 11/21/2022 11:05 AM EST Narrative Resulting Agency Comment Spec In Lab Gricel Stoddard THERAPY MANAGER CHEMISTRY ORDERABLES [facility] [place] [address] * (ABNORMAL) Platelet count (11/21/2022 10:58 AM EST) Platelet 460(H) 145 - 357 x10(3)/mc L [facility] Immature Plt % 1.0 0.0 - 7.4 % [facility] Comment: Limitation of the Immature Platelet Fraction (IPF)-May be less reliable when the platelet count is less than 98h069/uL due to statistical imprecision. The IPF value provides an assessment of the Bone Marrow production status. ??It is useful in differentiating Thrombocytopenia caused by platelet destruction/consumption versus decreased production. It also helps to determine the imminent release of platelets and can be therefore a helpful parameter in Chemotherapy and Bone marrow transplant patients. ELEVATED IPF value: ?? When the bone marrow is in a state of over production such as when increased destruction and consumption are the underlying issue. ?? When the marrow is recovering post chemotherapy or bone marrow transplant. LOW to NORMAL IPF value: ?? When the bone marrow in not responding and is in a decreased state of production. References: [employer] The Clinical Value of the Immature Platelet Fraction (IPF) in Cell Recovery Document Number 10-1143 04/2011 [employer] The Role of the Immature Platelet Fraction (IPF) in the Differential Diagnosis of Thrombocytopenia, Document MKT-[id number] V003/24/14 P003/26 Blood 11/21/2022 10:5 8 AM EST 11/21/2022 11:06 AM EST Narrative Resulting Agency Comment Spec In Lab Gricel Stoddard THERAPY MANAGER HEMATOLOGY ORDERABLE S [facility] [place] [address] documented in this encounter Visit Diagnoses Diagnosis Right internal carotid artery aneurysm Cerebral aneurysm, nonruptured documented in this encounter Care Teams Cabinetmaker Maintenance Relationship Specialty Start Date End Date Odalys Escobar, TOSHIA [address] [place] [address] PCP - General Family Medicine 11/26/20 02/22/23 documented as of this encounter
--- OUTSIDE RECORDS SUMMARY | 2024-07-30 16:33 | XMS_ITS | Encounter Summary ---
Author Organization [facility] [place] [address] Care Team Providers Care Oracle Apex Developer Name Role Phone Luz Odalys TOSHIA Primary Care Provider [phone] Encounter Details Date Type Department Care Team (Late st Contact Info) Description 01/28/2022 Telephone [place] [address] Tania Llanes Social History Tobacco Use Types Packs/Day Years [...] encounter Miscellaneous Notes * Telephone Encounter - Tania Llanes - 01/28/2022 3:57 PM EDT Called pt regarding 03/09 telehealth visit with Cat. Need to either change to in person that day, orreschedule for telehealth into late March due to current [place] licensure issues. Left message with pt's mom who will have her call us back. documented in this encounter Plan of Treatment Upcoming Encounters Date Type Department Care Team (Late st Contact Info) Description 01/24/2025 9:00 AM EDT TH Visit (TeleHealth) [place] [address] Gricel Stoddard, [employer] [facility] [place] [address] documented as of this encounter Visit Diagnoses Not on filedocumented in this encounter Care Teams Oracle Apex Developer Relationship Specialty Start Date End Date Odalys Escobar APRN [address] [place] [address] PCP - General Family Medicine 11/26/20 02/22/23 documented as of this encounter
--- OUTSIDE RECORDS SUMMARY | 2024-07-30 16:33 | XMS_ITS | Encounter Summary ---
Author Organization [facility] [place] [address] Care Team Providers Care Hematology Technician Name Role Phone Luz Odalys TOSHIA Primary Care Provider [phone] Encounter Details Date Type Department Care Team (Late st Contact Info) Description 06/09/2022 10:00 AM EDT TH Visit (TeleHealth) [place] [address] [address] [facility] [place] [address] Irritable bowel syndrome with diarrhea; Bloating Social History Tobacco Use Types Packs/Day Years [...] Progress Notes * Chela Edwards RD - 06/09/2022 10:00 AM EDT Nutrition Reason for visit: follow up Location of patient: [place] Readings from Last 5 Encounters: 05/20/22 [...] it's full, like she's eaten 4 course meal;constant diarrhea (sometimes all day long, sometimes in [...] every morning, sometimes 2-3 times per day, shenot sure if it's helping. She's lactose intolerant [...] medication trials to help treat her IBS-D (abdominal pain, frequent loose stools) as outlined in Daphnie's note from 01/03/22 Follow up with me 2-3 months or as needed documented in this encounter Plan of Treatment Upcoming Encounters Date Type Department Care Team (Late st Contact Info) Description 01/24/2025 9:00 AM EDT TH Visit (TeleHealth) [place] [address] Gricel Stoddard APRN [facility] [place] [address] documented as of this encounter Visit Diagnoses Diagnosis Irritable bowel syndrome with diarrhea Irritable bowel syndrome Bloating Flatulence, eructation, and gas pain documented in this encounter Care Teams Hematology Technician Relationship Specialty Start Date End Date Odalys Escobar APRN [address] [place] [address] PCP - General Family Medicine 11/26/20 02/22/23 documented as of this encounter
--- OUTSIDE RECORDS SUMMARY | 2024-07-30 16:33 | XMS_ITS | Encounter Summary ---
[place] [address] Care Team Providers Care Biomass Power Plant Superintendent Name Role Phone Luz Odalys TOSHIA Primary Care Provider [phone] Reason for Visit * Reason Onset Date Comments Reminder Appointment 01/03/2022 Encounter Details Date Type Department Care Team (Late st Contact Info) Description 01/03/2022 Telephone [place] [phone] Roz Hassan CCMA Reminder Appointment Social History Tobacco Use Types Packs/Day [...] encounter Miscellaneous Notes * Telephone Encounter - Roz Hassan CCMA - [...] AM EDT TH Visit (TeleHealth) [place] [address] Gricel Stoddard APRN [facility] [place] [address] documented as of this encounter Visit Diagnoses Not on filedocumented in this encounter Care Teams Biomass Power Plant Superintendent Relationship Specialty Start Date End Date Odalys Escobar APRN [address] [place] [address] PCP - General Family Medicine 11/26/20 02/22/23 documented as of this encounter
--- OUTSIDE RECORDS SUMMARY | 2024-07-30 16:33 | XMS_ITS | Encounter Summary ---
[place] [address] Care Team Providers Care Photoengraving Apprentice Name Role Phone Odalys Escobar APRN Primary Care Provider [phone] Encounter Details Date Type Department Care Team (Latest Contact Info) Description 11/21/2022 Travel Social History Tobacco Use Types Packs/Day [...] AM EDT TH Visit (TeleHealth) [place] [address] Gricel Stoddard APRN [facility] [place] [address] documented as of this encounter Visit Diagnoses Not on filedocumented in this encounter Care Teams Photoengraving Apprentice Relationship Specialty Start Date End Date Odalys Escobar APRN [address] [place] [address] PCP - General Family Medicine 11/26/20 02/22/23 documented as of this encounter
--- OUTSIDE RECORDS SUMMARY | 2024-07-30 16:33 | XMS_ITS | Encounter Summary ---
Author Organization [facility] [place] [address] Care Team Providers Care Qa Automation Architect Name Role Phone LuzOdalys TOSHIA Primary Care Provider [phone] Reason for Visit * Auth/Cert Specialty Diagnoses / Procedures Referred By Jennifer t Referred To Contact Diagnoses Right internal carotid artery aneurysm RIGHT INTERNAL CAROTID ARTERY ANEURYSM Procedures PRO PERM OCCLUSION/EMBOLIZATION, PERCUT, KNOTTER @TRANSCATHETER OCCLUSION/EMBOLIZATION FOR TUMOR DESTRUCTION Referral ID Status Reason Start Date Expiration Date Visits Re quested Visits Authorized [id number] 1 1 Encounter Details Date Type Department Care Team (Late st Contact Info) Description 04/04/2022 11:30 AM EDT - 04/04/2022 3:50 [place] [address] Sary Bloom MD [facility] [place] [address] @TRANSCATHETER OCCLUSION/EMBOLIZATION FOR TUMOR DESTRUCTION (WRVU 20.12) Social History Tobacco Use Types Packs/Day Years Used Date Smoking Tobacco: Every Day Cigarettes Smokeless Tobacco: Never Tobacco Cessation:Ready to Q uit: Yes; Counseling Given: Yes Alcohol Use Standard Drinks/Week Comments [...] 36.2 ??C (97.2 ??F) 04/04/2022 10:55 AM E DT Respiratory Rate 18 04/04/2022 10:55 AM EDT Oxygen Saturation 97% 04/04/2022 10:55 AM EDT Inhaled Oxygen Concentration - - Weight 67.4 kg (148 lb 9.6 oz) 04/04/2022 10:55 AM EDT Height 154.9 cm (5' 0.98) 04/04/2022 10:55 AM E DT Body Mass Index 28.09 04/04/2022 10:55 AM EDT documented in this encounter Discharge Summaries * Marisel Herbert PA - 04/04/2022 4:02 PM [...] past medical history who presented to the office of Dr. Sary Bloom with reports of an aneurysm noted during work of chronic psychiatric conditions. On exam, she was noted to be neurologically intact. Radiographic imaging demonstrated a 7mm rightparaclinoid ICA aneurysm. An endovascular coil embolization was offered and the patient elected to proceed. She was started on aspirin and plavix. Hospital Course: On 04/04/2022, Franchesca Dickson was admitted to [facility] for coil embolization of the R ICA aneurysm; there were no apparent complications intraoperatively. The incision closed with angioseal. Post-operatively, she was extubated and admitted to the neurosurgical service. She continued on aspirin and plavix. She had oozing from her puncture site which lidocaine was injected helped with the oozing. Home medications were administered during the hospitalization and will be continued after discharge. She understood to take ASA 325mg daily and [...] Nut Rash Commonly used phone numbers Neuro-oncology [phone] Radiation oncology [phone] Endocrinology [phone] Infectious disease [phone] Neurology [phone] Hematology/Oncology [phone] Plastic Surgery [phone] Trauma/General Surgery [phone] Urology [phone] Instructions Given to Patient at Discharge: Patient Instructions [facility] ENDOVASCULAR TREATMENT OF UNRUPTURED INTRACRANIAL ANEURYSM [...] bleeding from gums or nose, or heartburn/stomach pain while taking the blood thinners. If you are [...] for a week or two. Avoid soaking inthe tub or swimming for 7 days after procedure. - If you develop bulging under the skin or bleeding at the puncture site, put direct pressure on the puncture site for 15 minutes and call your doctor. If the bleeding persists, reapply pressure, andgo to your local Emergency Department. - If [...] next 8 hours. Avoid alcoholic or caffeinated beveragesfor 24 hours. ACTIVITY: - You may increase your activities as tolerated. - Restrict strenuous activity (such as running, jumping, jogging, shoveling, heavy lifting, etc.) for at least 2 weeks. - Stair climbing should be kept to a minimum. Do not lift objects heavier than 10-15 pounds for thenext 48 hours - Do not drive while taking any narcotic pain medication, if prescribed. FOLLOW UP PLAN: [x] Please follow up in the Neurosurgery Clinic in 4 weeks. Please call the Neurosurgery Office at [phone] if you do not receive a scheduled appointment within two weeks. You will follow-up with: [x] Dr. Bloom Imaging: [x] No imaging required at initial follow up HOW TO REACH NEUROSURGERY Contact your Doctor Office Hours: Monday through Monday, 8am-5pm. Call . On weekends or after office hours: Call [phone] and ask the nitroglycerin nitrator operator batch to page the Neurosurgery Resident injection mold technician. IMPORTANT PHONE NUMBERS: Outpatient Nurse (Kirstie Rockwell) Inpatient Nurses Neurosurgical Resident/Advanced Practice Provider On-Call (after 5pm or before 8am) Neurosurgery offices (Monday through Monday between 8am-5pm): Adult Neurosurgery Dr. Reginald Garza Pediatric Neurosurgery Dr. Arabella Rai Advanced Practice Providers Alyson Badgley, Nurse Practitioner (outpatient) Betsy Truong, Physician Postal Supervisor (inpatient) Mayra Freitas, Nurse Practitioner (inpatient) Sherrie Graf, Nurse Practitioner (inpatient) Marisel Garrett, Physician Postal Supervisor (inpatient) Marisel Herbert, Physician Postal Supervisor (inpatient) Jannet Nguyen, Physician Postal Supervisor (outpatient: spine) Joe Crenshaw, Nurse Practitioner (inpatient/outpatient) Raulito Reza, Physician Postal Supervisor (outpatient) Sarah Smith, Nurse Practitioner (outpatient: neuro-oncology) * Your surgeon may not be yardage caller, so be ready to tell about yourself and your surgery when you call, especially after hours or on the weekend. JACOBY Hawkins 04/05/2022 documented in this encounter Discharge Instructions * Discharge Instructions* Lilibeth Lopez RN - 04/04/2022 4:14 PM EDT [facility] Interventional Radiology Post Angiography Instructions Procedure: [...] particularly in the next 24 hours. Stair climbing should be kept to a [...] tingling and/or pain) of your leg on theside of the puncture call your doctor. 6. [...] hoildays, call and ask for the residential sales representative injection mold technician. 10. If you are a diabetic and [...] please contact your M. D. Revised 08/29/19 * Patient Instructions* Marisel Herbert PA - 04/04/2022 4:02 PM EDT [facility] ENDOVASCULAR TREATMENT OF UNRUPTURED INTRACRANIAL ANEURYSM [...] bleeding from gums or nose, or heartburn/stomach pain while taking the blood thinners. If you are [...] for a week or two. Avoid soaking inthe tub or swimming for 7 days after procedure. - If you develop bulging under the skin or bleeding at the puncture site, put direct pressure on the puncture site for 15 minutes and call your doctor. If the bleeding persists, reapply pressure, andgo to your local Emergency Department. - If [...] next 8 hours. Avoid alcoholic or caffeinated beveragesfor 24 hours. ACTIVITY: - You may increase your activities as tolerated. - Restrict strenuous activity (such as running, jumping, jogging, shoveling, heavy lifting, etc.) for at least 2 weeks. - Stair climbing should be kept to a minimum. Do not lift objects heavier than 10-15 pounds for thenext 48 hours - Do not drive while taking any narcotic pain medication, if prescribed. FOLLOW UP PLAN: [x] Please follow up in the Neurosurgery Clinic in 4 weeks. Please call the Neurosurgery Office at [phone] if you do not receive a scheduled appointment within two weeks. You will follow-up with: [x] Dr. Bloom Imaging: [x] No imaging required at initial follow up HOW TO REACH NEUROSURGERY Contact your Doctor Office Hours: Monday through Monday, 8am-5pm. Call . On weekends or after office hours: Call [phone] and ask the nitroglycerin nitrator operator batch to page the Neurosurgery Resident injection mold technician. IMPORTANT PHONE NUMBERS: Outpatient Nurse (Kirstie Rockwell) Inpatient Nurses Neurosurgical Resident/Advanced Practice Provider On-Call (after 5pm or before 8am) Neurosurgery offices (Monday through Monday between 8am-5pm): Adult Neurosurgery Dr. Reginald Garza Pediatric Neurosurgery Dr. Arabella Rai Advanced Practice Providers Alyson Weaver, Nurse Practitioner (outpatient) Betsy Truong, Physician Postal Supervisor (inpatient) Mayra Freitas, Nurse Practitioner (inpatient) Sherrie Graf, Nurse Practitioner (inpatient) Marisel Garrett, Physician Postal Supervisor (inpatient) Marisel Herbert, Physician Postal Supervisor (inpatient) Jannet Nguyen, Physician Postal Supervisor (outpatient: spine) Joe Crenshaw, Nurse Practitioner (inpatient/outpatient) Raulito Reza, Physician Postal Supervisor (outpatient) Sarah Smith, Nurse Practitioner (outpatient: neuro-oncology) * Your surgeon may not be yardage caller, so be ready to tell about yourself [...] 12/16/2021 11/16/2022 documented as of this encounter Progress Notes * Maia Reed RN - 04/05/2022 1:12 PM EDT 04/05/22 1308 Patient Belongings at Discharge Belongings Returned to Patient/Family Clothing;Electronic devices Clothing Shirt;Pants;Undergarments (Comment);Footwear Patient Electronics Cell phone;Lumber Press Operator Medications at Discharge Medications Returned to Patient/Family None to return Patient Belongings Return Verification Belongings at Bedside - Verified Returned to Patient/Family Yes Pt discharged to home with , avs reviewed with pt and verbalized understandin, vs/neuro status wnl on dc. Maia Reed RN * Maia Reed RN - 04/05/2022 1:12 PM EDT * Chica Reich RN - 04/05/2022 2:00 AM [...] OUTCOME EVALUATION: Continue with plan of care * Hoda Miles RN - 04/04/2022 8:22 PM EDT 0: Report received from CHANTELLE Almanzar. Care assumed. Patient resting in bed. Appears comfortable. Converses appropriately. Denies pain and nausea. Tolerating ice chips and sips of water. Neurological assessment intact to pre-op baseline. 2014: Labs drawn and sent. 2030: POC ACT 114, neurosurgery team notified 2315: Report called to CHANTELLE Posada in NSCU. * Jenelle Navarro RN - 04/04/2022 4:52 PM EDT Pt arrived to PACU from OR in bed. Attached to monitors and alarms set appropriately. Superficial Rgroin site oozing on arrival, Syvek applied. 2+ [...] Drummond. documented in this encounter H&P Notes * Sary Bloom MD - 04/04/2022 11:36 AM [...] Patient was offered surgery for flow-diversion treatment of the aneurysm given her age, aneurysm size and [...] IR Arteriogram Cerebral 01/28/2022 Sary Bloom MD [facility] INTERVENTIONL RAD Medications: No current facility-administered medications on file prior to encounter. Current Outpatient Medications on File Prior to Encounter Medication Sig Dispense Refill ??? pregabalin (LYRICA) 150 mg Capsule Take 150 mg by mouth 2 times daily. ??? clopidogreL (Plavix) 75 mg Tablet Take 1 tablet by mouth daily. Start 10 days prior to aneurysmprocedure. 90 tablet 3 ??? methylphenidate (RITALIN) 20 [...] 04/04/2022 documented in this encounter Miscellaneous Notes * Care Management Discharge - Cassie Metzger RN [...] Care: Transportation: family or friend will provide Catalina Hernandez Functional status prior to admission: Independent Home [...] plan. Conrado Metzger RN BSN CM Neurology Polysomnography TechnicianMechanical Engineering Teacher of Care Management Pager [phone] * Initial Assessments - Cassie Metzger RN - 04/05/2022 11:36 AM EDT Office of Care Management Initial Assessment Medical record reviewed. Plan of care and patient status discussed with direct care Registered Nurse and/or Care Team in multidisciplinary rounds. Reason for Hospitalization: procedure Last COVID test: Present on Admission: ??? Aneurysm Hospitalizations Within the Past 30 Days: no previous admission in last 30 days Patient receiving hospital care under Inpatient status. Admission order reviewed. Primary Insurance on file: [facility] Secondary Insurance on file:@ Primary care provider on file: Odalys Escobar APRN [phone] [facility]acy: [facility] [address] Advance Care Planning: Attempt Cardiopulmonary Resuscitation - Inpatient <no information> -Advanced Directive: No, declines Current Functional Ability: Independent Functional Status Prior to Admission: Independent Home Environment: Others in the home: spouse. Current Living Arrangements: home/apartment/condo. Accessibility Concerns:4 ZEESHAN then all one level. Current DME: [address] [facility] [address] Social & Family Supports: All names listed below confirmed with patient as current and correct Extended Emergency Contact Information Primary Emergency Contact: David Dickson Address: [address] [place] [phone] [facility] Mobile Relation: Spouse Secondary Emergency Contact: Marissa Santana Address: [address] [place] [id number] [facility] Relation: Mother Current Care Provided by: [...] via car/ when medically ready. Registered Nurse Polysomnography Technician / Travertine Installer will continue to follow patient???s progress and remain available if situation changes for coordination of care, psychosocial support and/or discharge planning. Office of Care Management Conrado Metzger RN BSN CM Neurology Polysomnography TechnicianMechanical Engineering Teacher of Care Management Pager [phone] * Brief Op Note - Sary Bloom MD - 04/04/2022 3:40 PM EDT Brief Operative Note Patient Name: Franchesca Dickson : [id number] MR#: [id number] Case Date: 04/04/2022 Surgeon: Surgeon(s) and Role: [...] AM EDT TH Visit (TeleHealth) [place] [address] Gricel Stoddard APRN [facility] [place] [address] documented as of this encounter Procedures Procedure Name Priority Date/Time Associated Diagnosis Comments HC PARTIAL THROMBOPLASTIN TIME STAT 04/04/2022 9:17 PM EDT Perm Occlusion/Embolization, Yesenia Arroyo ([id number]) 04/04/2022 12:40 PM EDT RIGHT INTERNAL CAROTID ARTERY ANEURYSM HC P2Y12 ANTIPLATELET ASSAY (VERIFYNOW) Routine 04/04/2022 10:43 AM EDT Right internal carotid artery aneurysm documented in this encounter Results * APTT (04/04/2022 9:17 PM EDT) Partial Thromboplastin Time 35 25 - 37 sec [facility] Comment: The PTT is NOT appropriate for heparin monitoring. Use the Anti-Xa level for heparin monitoring (HEP UFH) or LMWH monitoring (HEP LMW). A PTT less than 37 seconds generally indicates adequate hemostasis. Blood 04/04/2022 9:17 PM EDT 04/04/2022 9:17 PM EDT Narrative Resulting Agency Comment Spec In Lab Mayra Freitas APRN HEMATOLOGY ORDERABLE S [facility] [place] [address] * P2Y12 Antiplatelet ([facility]) (04/04/2022 10:43 AM EDT) P2Y12 35 PRU [facility] Comment: Test results are reported in P2Y12 reaction units (PRU). PRU is a measure of the degree of inhibition of platelet aggregation in response to P2Y12 inhibitors such as clopidogrel (Plavix), prasugrel (Effient), ticagrelor (Brilinta), ticlopidine (Ticlid). The reference interval for healthy individuals who are not on a P2Y12 inhibitor is 180-376 PRU. PRU values <180 are evidence for a P2Y12 inhibitor effect while on the drug. This test is intended to be used as an indication of drug effect in patients on a P2Y12 inhibitor only in conjunction with a baseline, pre-treatment determination. Blood 04/04/2022 10:4 3 AM EDT 04/04/2022 11:09 AM EDT Narrative Resulting Agency Comment Spec In Lab Gricel Stoddard ENGAGEMENT SPECIALIST HEMATOLOGY ORDERABLE S Performing Organization Address City/State/[facility] Co de Phone Number [facility] [place] [address] documented in this encounter Visit Diagnoses Not on filedocumented in this encounter Admitting Diagnoses Diagnosis Aneurysm Aneurysm of unspecified site documented in this encounter Administered Medications Inactive Administered Medications - up to 3 most recent administrations Medication Order MAR Action Action Date Dose Rate Site acetaminophen (Tylenol) (32.02 mg/mL) oral liquid 1,000 mg 1,000 mg, Oral, EVERY 6 HOURS PRN, Starting on Mon04/04/22 at 1553, Until Mon04/05/22 at 1552, Pain, mild pain (1-3), Maximum dose of acetaminophen is 4000 mg from all sources in 24 hours. When ordered for pain, acetaminophen should be given even when other ordered pain medications are indicated. , Routine acetaminophen (Tylenol) suppository 975 mg 975 mg, Rectal, EVERY 6 HOURS PRN, Starting on Mon04/04/22 at 1553, Until Mon04/05/22 at 1552, Pain, mild pain (1-3), Maximum dose of acetaminophen is 4000 mg from all sources in 24 hours. When ordered for pain, acetaminophen should be given even when other ordered pain medications are indicated. , Routine acetaminophen (Tylenol) tablet 1,000 mg 1,000 mg, Oral, EVERY 6 HOURS PRN, Starting on Mon04/04/22 at 1553, Until Mon04/05/22 at 1552, Pain, mild pain (1-3), Maximum dose of acetaminophen is 4000 mg from all sources in 24 hours. When ordered for pain, acetaminophen should be given even when other ordered pain medications are indicated. , Routine Given 04/05/2022 2:34 AM EDT 1,000 mg aspirin tablet 325 mg 325 mg, Oral, DAILY, First dose on Mon04/04/22 at 1615, Until Discontinued, Routine Given 04/05/2022 9:40 AM EDT 325 mg Given 04/04/2022 11:19 PM EDT 325 mg clopidogreL (Plavix) tablet 75 mg 75 mg, Oral, DAILY, First dose on Mon04/04/22 at 1615, Until Discontinued, Routine Given 04/05/2022 9:40 AM EDT 75 mg Given 04/04/2022 11:19 PM EDT 75 mg hydrALAZINE (Apresoline) (20 mg/mL) injection 10 mg 10 mg, Intravenous, EVERY 4 HOURS PRN, Starting on Mon04/04/22 at 1553, Until Mon04/05/22 at 1552, High Blood Pressure, for SBP greater than 180 mmHg. labetaloL (Normodyne) (5 mg/mL) injection solution 20-40 mg 20-40 mg, Intravenous, EVERY 10 MIN PRN, 8 doses, Starting on Mon04/04/22 at 1553, Until Mon04/05/22 at 1552, High Blood Pressure, For systolic blood pressure (SBP) greater than 160 mmHg administer 20 mg, repeat SBP after 10 minutes. Repeat administration of 40 mg [...] 4 mg, Intravenous, EVERY 8 HOURS PRN, Starting on Mon04/04/22 at 1553, Until Mon04/05/22 at 1552, Nausea sodium chloride 0.9 % (flush) (BD PosiFlush Normal Saline 0.9) flush 10 mL 10 mL, Intravenous, DAILY PRN, Starting on Mon04/04/22 at 1133, Until Mon04/05/22 at 1552, For use when accessing Implantable Port, Routine sodium chloride 0.9 % (flush) (BD PosiFlush Normal Saline 0.9) flush 5 mL 5 mL, Intravenous, 2 TIMES DAILY, First dose on Mon04/04/22 at 1200, Until Discontinued, Routine Given 04/04/2022 9:00 PM EDT 5 mLs sodium chloride 0.9 % (flush) (BD PosiFlush Normal Saline 0.9) flush 5 mL 5 mL, Intravenous, 2 TIMES DAILY, First dose on Mon04/04/22 at 2100, Until Discontinued, Routine Given 04/05/2022 9:42 AM EDT 5 mLs Given 04/04/2022 9:00 PM EDT 5 mLs sodium chloride 0.9 % (flush) (BD PosiFlush Normal Saline 0.9) flush 5-20 mL 5-20 mL, Intravenous, EVERY 1 MIN PRN, Starting on Mon04/04/22 at 1133, Until Mon04/05/22 at 1552, flush, Flush pertains to all indwelling lines. Flush per protocol found in the job aid using the link provided on this medication record., Routine sodium chloride 0.9 % (flush) (BD PosiFlush Normal Saline 0.9) flush 5-20 mL 5-20 mL, Intravenous, EVERY 1 MIN PRN, Starting on Mon04/04/22 at 1549, Until Mon04/05/22 at 1552, flush, Flush pertains to all indwelling lines. Flush per protocol found in the job aid using the link provided on this medication record., Routine sodium chloride 0.9% infusion 1,000 mL, at 100 mL/hr, Intravenous, CONTINUOUS, Starting on Mon04/04/22 at 1615, Until Mon04/05/22 at 1552, Only if not eating/drinking Rate/Dose Verify 04/05/2022 12:00 PM EDT 100 mL/hr Rate/Dose Verify 04/05/2022 10:00 AM EDT 100 mL /hr Rate/Dose Verify 04/05/2022 8:00 AM EDT 100 mL/ hr documented in this encounter Active and Recently Administered Medications Times are shown in EDT. Scheduled Medication Order 04/03/2022 04/04/2022 04/05/2022 aspirin tablet 325 mg 325 mg, Oral, DAILY, First dose on Mon04/04/22 at 1615, Until Discontinued, Routine 2319 (Given - Provider: Hoda Miles RN) 0940 (Given - Provider: Maia Reed RN) clopidogreL (Plavix) tablet 75 mg 75 mg, Oral, DAILY, First dose on Mon04/04/22 at 1615, Until Discontinued, Routine 2319 (Given - Provider: Hoda Miles RN) 0940 (Given - Provider: Maia Reed RN) sodium chloride 0.9 % (flush) (BD PosiFlush Normal Saline 0.9) flush 5 mL 5 mL, Intravenous, 2 TIMES DAILY, First dose on Mon04/04/22 at 1200, Until Discontinued, Routine 1200 (Due)2100 (Given - Provider: Hoda Miles RN) 0900 (Not Given - Provider: Maia Reed RN - Reason: See comment) sodium chloride 0.9 % (flush) (BD PosiFlush Normal Saline 0.9) flush 5 mL 5 mL, Intravenous, 2 TIMES DAILY, First dose on Mon04/04/22 at 2100, Until Discontinued, Routine 2100 (Given - Provider: Hoda Miles RN) 0942 (Given - Provider: Maia Reed RN) Continuous Medication Order 04/03/2022 04/04/2022 04/05/2022 lactated ringers infusion (CANCELED) 1,000 mL, at 100 mL/hr, Intravenous, CONTINUOUS, Starting on Mon04/04/22 at 1115, Until Mon04/05/22 at 0148, Day of Surgery (Day of Procedure) 1230 (New Bag - Provider: Judit Wei CRNA)1410 (Anesthesia Volume Adjustment - Provider: Judit Wei CRNA)1533 (Anesthesia Volume Adjustment - Provider: Judit Wei CRNA) 0148 (Stopped - Provider: Chica Reich RN) sodium chloride 0.9% infusion 1,000 mL, at 100 mL/hr, Intravenous, CONTINUOUS, Starting on Mon04/04/22 at 1615, Until Mon04/05/22 at 1552, Only if not eating/drinking 1718 (New Bag - Provider: Jenelle Navarro RN) 0245 (New Bag - Provider: Chica Reich RN)0800 (Rate/Dose Verify - Provider: Maia Reed RN)1000 (Rate/Dose Verify - Provider: Maia Reed RN)1200 (Rate/Dose Verify - Provider: Maia Reed RN)1201 (Stopped - Provider: Maia Reed RN) PRN Medication Order 04/03/2022 04/04/2022 04/05/2022 acetaminophen (Tylenol) (32.02 mg/mL) oral liquid 1,000 mg(Linked Group 1) 1,000 mg, Oral, EVERY 6 HOURS PRN, Starting on Mon04/04/22 at 1553, Until Mon04/05/22 at 1552, Pain, mild pain (1-3), Maximum dose of acetaminophen is 4000 mg from all sources in 24 hours. When ordered for pain, acetaminophen should be given even when other ordered pain medications are indicated. , Routine 0234 (See Alternativ e - Provider: Chica Reich, CHANTELLE) acetaminophen (Tylenol) suppository 975 mg(Linked Group 1) 975 mg, Rectal, EVERY 6 HOURS PRN, Starting on Mon04/04/22 at 1553, Until Mon04/05/22 at 1552, Pain, mild pain (1-3), Maximum dose of acetaminophen is 4000 mg from all sources in 24 hours. When ordered for pain, acetaminophen should be given even when other ordered pain medications are indicated. , Routine 0234 (See Alternativ e - Provider: Chica Reich RN) acetaminophen (Tylenol) tablet 1,000 mg(Linked Group 1) 1,000 mg, Oral, EVERY 6 HOURS PRN, Starting on Mon04/04/22 at 1553, Until Mon04/05/22 at 1552, Pain, mild pain (1-3), Maximum dose of acetaminophen is 4000 mg from all sources in 24 hours. When ordered for pain, acetaminophen should be given even when other ordered pain medications are indicated. , Routine 0234 (Given - Provid er: Chica Reich RN) hydrALAZINE (Apresoline) (20 mg/mL) injection 10 mg 10 mg, Intravenous, EVERY 4 HOURS PRN, Starting on Mon04/04/22 at 1553, Until Mon04/05/22 at 1552, High Blood Pressure, for SBP greater than 180 mmHg. labetaloL (Normodyne) (5 mg/mL) injection solution 20-40 mg 20-40 mg, Intravenous, EVERY 10 MIN PRN, 8 doses, Starting on Mon04/04/22 at 1553, Until Mon04/05/22 at 1552, High Blood Pressure, For systolic blood pressure (SBP) greater than 160 mmHg administer 20 mg, repeat SBP after 10 minutes. Repeat administration of 40 mg [...] 4 mg, Intravenous, EVERY 8 HOURS PRN, Starting on Mon04/04/22 at 1553, Until Mon04/05/22 at 1552, Nausea sodium chloride 0.9 % (flush) (BD PosiFlush Normal Saline 0.9) flush 10 mL 10 mL, Intravenous, DAILY PRN, Starting on Mon04/04/22 at 1133, Until Mon04/05/22 at 1552, For use when accessing Implantable Port, Routine sodium chloride 0.9 % (flush) (BD PosiFlush Normal Saline 0.9) flush 5-20 mL 5-20 mL, Intravenous, EVERY 1 MIN PRN, Starting on Mon04/04/22 at 1133, Until Mon04/05/22 at 1552, flush, Flush pertains to all indwelling lines. Flush per protocol found in the job aid using the link provided on this medication record., Routine sodium chloride 0.9 % (flush) (BD PosiFlush Normal Saline 0.9) flush 5-20 mL 5-20 mL, Intravenous, EVERY 1 MIN PRN, Starting on Mon04/04/22 at 1549, Until Mon04/05/22 [...] ordered pain medications are indicated. , Routine Or acetaminophen (Tylenol) tablet 1,000 mgJump to med 1,000 mg, Oral, EVERY 6 HOURS PRN, Starting on Mon04/04/22 at 1553, Until Mon04/05/22 at 1552, Pain, mild pain (1-3), Maximum dose of acetaminophen is 4000 mg from all sources in 24 hours. When ordered for pain, acetaminophen should be given even when other ordered pain medications are indicated. , Routine Or acetaminophen (Tylenol) suppository 975 mgJump to med 975 mg, Rectal, EVERY 6 HOURS PRN, Starting on 04/04/22 at 1553, Until Tu04/05/22 at 1552, Pain, mild pain (1-3), Maximum dose of acetaminophen is 4000 mg from all sources in 24 hours. When ordered for pain, acetaminophen should be given even when other ordered pain medications are indicated. , Routine documented in this encounter Care Teams Qa Automation Architect Relationship Specialty Start Date End Date Odalys Escobar, TOSHIA [address] [place] [address] PCP - General Family Medicine 11/26/20 02/22/23 documented as of this encounter
--- OUTSIDE RECORDS SUMMARY | 2024-07-30 16:33 | XMS_ITS | Encounter Summary ---
Author Organization [place] [address] Care Team Providers Care Creative Developer Name Role Phone Luz Odalys TOSHIA Primary Care Provider [phone] Reason for Visit * Auth/Cert Specialty Diagnoses [...] GI ENDOSCOPY COLONOSCOPY, DIAGNOSTIC Subhash Luna MD [facility] [place] [address] [facility] Referral ID Status Reason Start Date Expiration Date Visits Re quested Visits Authorized [id number] 1 1 Encounter Details Date Type Department Care Team (Late st Contact Info) Description 05/20/2022 9:24 AM EDT Anesthesia Event [place] [phone] Dayanara Ball MD [facility] [place] [address] Alyx Mcintosh CRNA Anesthesia Record Procedure Summary Procedure Name Responsible Anesthesiologist Anesthesia Start Time Anesthesia Stop Time EGD WITH BIOPSY (WRVU 2.39) (Trunk) Dayanara Ball MD 05/20/22 0924 05/20/22 0958 Events Date Time Event Comment 05/20/2022 0924 AN Verify 0924 Start 0924 An Start Data 0928 An Induction 0929 Break/Relief In I assumed ca re for [...] stop data 0958 Recovery or ICU Handoff Carole ent care was transferred to the destination unit staff after review of the patient's medical history, current anesthetic/surgical status and plan, according to the Provider Handoff Checklist. 0958 Stop Meds Name Total Midazolam 2 mg Propofol 50 mg Propofol INF 209.55 mg Dexmedetomidine 12 mcg Lactated Ringers 300 mL * Agents Name O2 Auxiliary Flowmeter 1 * Blood No blood administrations on file. Lines, Drains, and Airways Type Details Placement Removal Incision 01/28/22; 1121; Righ t, anterior; wrist; non-laparascopic puncture 01/28/22 1121 by Abiel Ponce, CHANTELLE (RETIRED) Peripheral IV Line - Single Lumen 05/20/22; 08; basilic vein (medial side of arm), right; [id number] catheter system; Anatomical Landmarks; US Not Used; 22 gauge; Yogesh Monte RN; distraction; 1; median vein (underside of arm), right; no longer indicated, removed per policy/procedure, catheter/device intact; 05/20/22; 10405/20/22 08 by Joanie Hewitt RN 05/20/22 104 by Jill Wilson, CHANTELLE documented in this encounter Social History Tobacco [...] OR Notes * Anesthesia Postprocedure Evaluation - Dayanara Ball MD - 05/20/2022 1:33 PM EDT Department of Anesthesiology Post-procedure Note Patient: Franchesca Dickson Procedure Summary Date: 05/20/22 Room / Location: [facility] ENDO 6 / [facility] ENDOSCOPY Anesthesia Start: 923 Anesthesia [...] All Anesthesia Providers: Anesthesiologist: Dayanara Ball MD TRACK HOE OPERATOR: Alyx Mcintosh CRNA Vitals Value Taken Time [...] planned.) Comments: * Anesthesia Preprocedure Evaluation - Dayanara Ball MD [...] IR Arteriogram Cerebral 01/28/2022 Sary Bloom MD [facility] INTERVENTIONL RAD ??? IR EMBOLIZATION CEREBRAL 04/04/2022 IR Embolization Cerebral 04/04/2022 Sary Bloom MD [facility] INTERVENTIONL RAD ??? PRO PERM OCCLUSION/EMBOLIZATION, TAHIR, KNIFE BLADE POLISHER N/A 04/04/2022 @TRANSCATHETER OCCLUSION/EMBOLIZATION FOR TUMOR DESTRUCTION performed by Sary Bloom MD at [facility] RAO Social History Tobacco Use [...] kg (103 lb 8.1 oz) Last edited 05/20/22810 by BD Airway Assessment: Mallampati: II TM [...] nature of sedation it is possible to hear people talking during the procedure and to be aware of surroundings. Patient instructed to informour team of any needs or discomforts while with us today. Plan MAC, standard ASA monitors, adequate PIV access. Dayanara Ball MD Region - Other Informed Consent: Anesthetic plan and risks discussed with patient. Plan discussed with TRACK HOE OPERATOR. Anesthesia Screening documented in this encounter Plan of Treatment Upcoming Encounters Date Type Department Care Team (Late st Contact Info) Description 01/24/2025 9:00 AM EDT TH Visit (TeleHealth) [place] [address] Gricel Stoddard APRN [facility] [place] [address] documented as of this encounter Visit Diagnoses Not on filedocumented in this encounter Administered Medications Inactive Administered Medications - up to 3 most recent administrations Medication Order MAR Action Action Date Dose Rate Site dexmedeTOMIDine (Precedex) (4 mcg/mL) bolus injection (Anesthsia) Intravenous, PRN, Starting on Mon05/20/22 at 0929, Until Mon05/20/22 at 0958, Anesthesia Intra-op, Routine Given 05/20/2022 9:29 AM EDT 12 mcg lactated ringers infusion Intravenous, CONTINUOUS PRN, Starting on Mon05/20/22 at 0924, Until Mon05/20/22 at 0958, Anesthesia Intra-op New Bag 05/20/2022 9:24 AM EDT midazolam (pf) (Versed) (1 mg/mL) multi-dose injection Intravenous, PRN, Starting on Mon05/20/22 at 0924, Until Mon05/20/22 at 0958, Anesthesia Intra-op, Routine Given 05/20/2022 9:24 AM EDT 2 mg propofoL (Diprivan) (10 mg/mL) infusion Intravenous, CONTINUOUS PRN, Starting on Mon05/20/22 at 0928, Until Mon05/20/22 at 0958, Anesthesia Intra-op, Routine Rate/Dose Change 05/20/2022 9:42 AM EDT 100 mcg/kg/min 38.1 mL/hr New Bag 05/20/2022 9:28 AM EDT 200 mcg/kg/min 76.2 mL/h r propofoL (Diprivan) 10 mg/mL bolus injection (Anesthesia) Intravenous, PRN, Starting on Mon05/20/22 at 0928, Until Mon05/20/22 at 0958, Anesthesia Intra-op Given 05/20/2022 9:28 AM EDT 50 mg documented in this encounter Care Teams Creative Developer Relationship Specialty Start Date End Date Odalys Escobar, TOSHIA [address] [facility] [address] PCP - General Family Medicine 11/26/20 02/22/23 documented as of this encounter
--- OUTSIDE RECORDS SUMMARY | 2024-07-30 16:33 | XMS_ITS | Encounter Summary ---
Author Organization [facility] [place] [address] Care Team Providers Care Land Acquisition Analyst Name Role Phone Nya Escobarh TOSHIA Primary Care Provider [phone] Encounter Details Date Type Department Care Team (Late st Contact Info) Description 02/04/2022 Orders [place] [phone] Gricel Stoddard APRN [facility] [place] [address] Social History Tobacco Use Types Packs/Day Years [...] AM EDT TH Visit (TeleHealth) [place] [phone] Gricel Stoddard APRN [facility] [place] [address] documented as of this encounter Visit Diagnoses Not on filedocumented in this encounter Care Teams Land Acquisition Analyst Relationship Specialty Start Date End Date Odalys Escobar APRN [address] [place] [address] PCP - General Family Medicine 11/26/20 02/22/23 documented as of this encounter
--- OUTSIDE RECORDS SUMMARY | 2024-07-30 16:33 | XMS_ITS | Encounter Summary ---
Author Organization [facility] [place] [address] Care Team Providers Care Busher Helper Name Role Phone Nya Escobarh TOSHIA Primary Care Provider [phone] Encounter Details Date Type Department Care Team (Late st Contact Info) Description 05/13/2022 Telephone [place] [phone] Gricel Stoddard APRN [facility] [place] [address] Social History Tobacco Use Types Packs/Day Years [...] Telephone Encounter - Monica Butcher Bernarda - 05/13/2022 3:21 PM EDT 6 mo recall entered. Franchesca Dickson - 05/13/22 Gricel Stoddard APRN Sent: MonMay 13, 2022 ??3:03 PM To: [facility] Neurosurgery Java Technical Manager ?? Message 6 mos cerebral angiogram documented in this encounter Plan of Treatment Upcoming Encounters Date Type Department Care Team (Late st Contact Info) Description 01/24/2025 9:00 AM EDT TH Visit (TeleHealth) [place] [address] Gricel Stoddard APRN [facility] [place] [address] documented as of this encounter Visit Diagnoses Not on filedocumented in this encounter Care Teams Busher Helper Relationship Specialty Start Date End Date Odalys Escobar APRN [address] [place] [address] PCP - General Family Medicine 11/26/20 02/22/23 documented as of this encounter
--- OUTSIDE RECORDS SUMMARY | 2024-07-30 16:33 | XMS_ITS | Encounter Summary ---
Author Organization [facility] [place] [address] Care Team Providers Care Infirmary Attendant Name Role Phone Nya Escobarh TOSHIA Primary Care Provider [phone] Encounter Details Date Type Department Care Team (Late st Contact Info) Description 03/17/2022 [place] [phone] Gricel Stoddard APRN [facility] [place] [address] Right internal carotid artery aneurysm Social History [...] AM EDT TH Visit (TeleHealth) [place] [phone] Gricel Stoddard APRN [facility] [place] [address] documented as of this encounter Results * P2Y12 Antiplatelet ([facility]) (04/04/2022 10:43 AM EDT) P2Y12 [address] [facility] Comment: Test results are reported [...] Spec In Lab Gricel Stoddard APRN HEMATOLOGY ORDERABLE S [facility] [place] [address] documented in this encounter Visit Diagnoses Diagnosis Right internal carotid artery aneurysm Cerebral aneurysm, nonruptured documented in this encounter Care Teams Infirmary Attendant Relationship Specialty Start Date End Date Odalys Escobar APRN [address] [place] [address] PCP - General Family Medicine 11/26/20 02/22/23 documented as of this encounter
--- OUTSIDE RECORDS SUMMARY | 2024-07-30 16:33 | XMS_ITS | Encounter Summary ---
Author Organization [facility] [place] [address] Care Team Providers Care Windows Desktop Support Name Role Phone Odalys Escobar APRN Primary Care Provider [phone] Reason for Referral * Diagnostic Test (Routine) - Closed Specialty Diagnoses / Procedures Referred By Jennifer guillen Referred To Contact Radiology Diagnoses Right internal carotid artery aneurysm Procedures MRI Angiogram Head wo Contrast (Generic) Gricel Stoddard APRN [facility] [address] [place] [address] Referral ID Status Reason Start Date Expiration Date V isits Requested Visits Authorized [id number] Closed Specialty Service Requested 04/27/2023 10/24/2023 1 1 Encounter Details Date Type Department Care Team (Late st Contact Info) Description 11/24/2022 Orders [place] [address] Gricel Stoddard APRN [facility] [address] Right internal carotid artery aneurysm [...] AM EDT TH Visit (TeleHealth) [place] [address] Gricel Stoddard APRN [facility] [address] documented as of this encounter Results * [...] who have questions please contact the health child daycare worker that requested your imaging first. ? Electronically signed by: Kimberly Denson MD, [facility] ([phone]), at 06/22/2023 3:23 PM Narrative 06/22/2023 3:23 [...] terminus. No hemodynamically significant stenosis in the marshall of Hernandez or visible branch vessels. Vertebral [...] ICAterminus. No hemodynamically significant stenosis in the marshall of Hernandez orvisible branch vessels. Vertebral arteries [...] patients who have questions please contactthe health child daycare worker that requested your imaging first. Electronically signed by: Kimberly Denson MD, [facility]([phone]), at 06/22/2023 3:23 PM Gricel Stoddard FLEET OPERATIONS MANAGER IMG MRI ORDERABLES documented in this encounter Visit Diagnoses Diagnosis Right internal carotid artery aneurysm Cerebral aneurysm, nonruptured Right internal carotid artery aneurysm Cerebral aneurysm, nonruptured documented in this encounter Care Teams Windows Desktop Support Relationship Specialty Start Date End Date Odalys Escobar APRN [address] [place] [address] PCP - General Family Medicine 11/26/20 02/22/23 documented as of this encounter
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
--- OUTSIDE RECORDS SUMMARY | 2024-07-30 16:33 | XMS_ITS | Encounter Summary ---
Author Organization [facility] [place] [address] Care Team Providers Care Exhaust Tender Name Role Phone Odalys Escobar APRN Primary Care Provider [phone] Reason for Referral * Diagnostic Test (Routine) - Closed Specialty Diagnoses / Procedures Referred By Jennifer guillen Referred To Contact Radiology Diagnoses Right internal carotid artery aneurysm Procedures IR Embolization Cerebral Gricel Stoddard APRN [facility] [place] [address] [place] [address] Referral ID Status Reason Start Date Expiration Date V isits Requested Visits Authorized [id number] Closed Specialty Service Requested 03/14/2022 11/12/2022 1 1 Encounter Details Date Type Department Care Team (Late st Contact Info) Description 02/04/2022 Orders [place] [address] Gricel Stoddard APRN [facility] [place] [address] Right internal carotid artery aneurysm [...] AM EDT TH Visit (TeleHealth) [place] [address] Gricel Stoddard APRN [facility] [place] [address] documented as of this encounter Results * IR Embolization Cerebral (04/04/2022 4:36 PM EDT) Anatomical Region Laterality Modality Spine X-Ray Angiograph y Narrative 04/22/2022 2:09 AM EDT Awaiting upload of angiography data to PACS Refer to [facility] for full details. Gricel Stoddard APRN IMG IR ORDERABLES documented in this encounter Visit Diagnoses Diagnosis Right internal carotid artery aneurysm Cerebral aneurysm, nonruptured Right internal carotid artery aneurysm Cerebral aneurysm, nonruptured documented in this encounter Care Teams Exhaust Tender Relationship Specialty Start Date End Date Odalys Escobar APRN [address] [place] [address] PCP - General Family Medicine 11/26/20 02/22/23 documented as of this encounter
--- OUTSIDE RECORDS SUMMARY | 2024-07-30 16:33 | XMS_ITS | Encounter Summary ---
Author Organization [facility] [place] [address] Care Team Providers Care Busboy Name Role Phone Odalys Escobar APRN Primary Care Provider [phone] Encounter Details Date Type Department Care Team (Late st Contact Info) Description 02/18/2022 [place] [id number] Sary Bloom MD [facility] [place] [address] Social History Tobacco Use Types Packs/Day Years [...] Telephone Encounter - Monica Butcher Bernarda - 03/10/2022 5:26 PM EDT Per [place] text reschedule 03/14 angio, called pt to let her know Fozia would call with an new date need to cancel 5/2 angio. * Telephone Encounter - Monica Butcher - 02/18/2022 [...] AM EDT TH Visit (TeleHealth) [place] [address] Gricel Stoddard APRN [facility] [place] [address] documented as of this encounter Visit Diagnoses Not on filedocumented in this encounter Care Teams Busboy Relationship Specialty Start Date End Date Odalys Escobar APRN [address] [place] [address] PCP - General Family Medicine 11/26/20 02/22/23 documented as of this encounter
--- OUTSIDE RECORDS SUMMARY | 2024-07-30 16:33 | XMS_ITS | Encounter Summary ---
Author Organization [place] [address] Care Team Providers Care Executive Marketing Assistant Name Role Phone Nya Escobarh TOSHIA Primary Care Provider [phone] Encounter Details Date Type Department Care Team (Late st Contact Info) Description 11/24/2022 Telephone [place] [phone] Gricel Stoddard APRN [facility] [place] [address] Social History Tobacco Use Types Packs/Day Years [...] encounter Miscellaneous Notes * Telephone Encounter - Juve Mable R - 03/01/2023 9:17 AM EDT Spoke to pt to confirm appt details NS f/u on 05/18 MRA at 1010 am OV with Gricel Stoddard at 1140 No appt card needed Closing encounter * Telephone Encounter - Mable An - 02/23/2023 2:09 PM EDT Spoke to pt and completed MRI brain screening questions Please coordinate MRA on 05/21 or 06/04 with earliest check in time at 10 am. ALP is available from [phone]. Sent rad request [facility] Scheduling Instructions ?? Provider: Gricel Stoddard APRN ?? Visit Type: OV ?? Appt Note: 6 mo ov, DERRICK stent/coil treatment of aneurysm MRA Brain prior ?? Imaging appt needed?: MRA [facility] to ask patient Screening Questions? Yes [facility]SC to coordinate same day appt with Radiology? Yes ?? Additional Info Needed: ?? Schedule for ~ 05/24/23 * Telephone Encounter - Monica Butcher - 11/24/2022 2:04 PM EST [facility] Scheduling Instructions Provider: Gricel Stoddard APRN Visit Type: OV Appt Note: 6 mo ov, DERRICK stent/coil treatment of aneurysm MRA Brain prior Imaging appt needed?: MRA [facility] to ask patient Screening Questions? Yes [facility] to coordinate same day appt with Radiology? Yes Additional Info Needed: Schedule for ~ 05/24/23 ~~~~~~~~~~~~~~~~~~~~~~~~~~~~~~~ Franchesca Dickson - 11/24/22 Gricel Stoddard APRN Sent: Jill November 24, 2022 ??1:55 PM To: P [facility] Neurosurgery Build Engineer ?? Message 6 mos MRA and OV with Ap documented in this encounter Plan of Treatment Upcoming Encounters Date Type Department Care Team (Late st Contact Info) Description 01/24/2025 9:00 AM EDT TH Visit (TeleHealth) [place] [phone] Gricel Stoddard FOREIGN DIPLOMAT [facility] [place] [address] documented as of this encounter Visit Diagnoses Not on filedocumented in this encounter Care Teams Executive Marketing Assistant Relationship Specialty Start Date End Date Odalys Escobar APRN [address] [place] [address] PCP - General Family Medicine 11/26/20 02/22/23 documented as of this encounter
--- OUTSIDE RECORDS SUMMARY | 2024-07-30 16:33 | XMS_ITS | Encounter Summary ---
[place] [address] Care Team Providers Care Plaster Caster Name Role Phone Nya Escobarh TOSHIA Primary Care Provider [phone] Reason for Referral * Diagnostic Test (Routine) - Closed Specialty Diagnoses / Procedures Referred By Jennifer guillen Referred To Contact Radiology Diagnoses Right internal carotid artery aneurysm Procedures IR Embolization Cerebral Gricel Stoddard APRN [facility] [place] [address] [place] [address] Referral ID Status Reason Start Date Expiration Date V isits Requested Visits Authorized [id number] Closed Specialty Service Requested 03/14/2022 11/12/2022 1 1 Reason for Visit * Auth/Cert Specialty Diagnoses / Procedures Referred By Jennifer guillen Referred To Contact Diagnoses Right internal carotid artery aneurysm RIGHT INTERNAL CAROTID ARTERY ANEURYSM Procedures PRO PERM OCCLUSION/EMBOLIZATION, PERCUT, MEDICAL UNDERWRITER @[email or web address] OCCLUSION/EMBOLIZATION FOR TUMOR DESTRUCTION Referral ID Status Reason Start Date Expiration Date Visits Re quested Visits Authorized [id number] 1 1 Encounter Details Date Type Department Care Team (Latest Contact Info) Description 04/04/2022 11:30 AM EDT - 04/04/2022 11:59 PM EDT Hospital Encounter Radiology at [facility] [place] [id number] Gricel Stoddard APRN [facility] [place] [address] Right internal carotid artery aneurysm Discharge Disposition: [...] mouth daily. 90 tablet 3 04/06/2022 06/22/2023 clopidogreL (Plavix) 75 mg Tablet Take 1 tablet by mouth daily. Start 10 days prior to aneurysm procedure. 90 tablet 3 02/04/2022 04/05/2022 methylphenidate (RITALIN) 20 mg Tablet Take 20 mg by mouth daily. 12/16/2021 11/16/2022 documented as of this encounter Progress Notes * Geno Schulz MD - 04/04/2022 6:48 PM EDT BRIEF INTERVENTIONAL RADIOLOGY PROGRESS NOTE: Ms. 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 Bloom. Right CARD CUTTER HELPER access was closed with 6 Fr Angioseal. Patient is currently ondaily ASA and Plavix. While no groin hematoma was present s/p Angioseal deployment, patient had a persistent ooze from the superficial aspect of the incision. Distal pulses were intact. Syvek placement, sandbag application and manual pressure were all not successful in stopping the oozing. This author arrived at bedside at approximately 1825 hrs. The existing dressing was removed, and there was visible ongoing slow ooze from incision site. No hematoma on palpation, palpable femoral pulse and per nursing report, distal pulses remain intact. [...] site. Syvek applied, followed by gauze and Teg aderm dressing. The patient tolerated this well. Dr. Bloom was updated. Geno Schulz MD Diagnostic and Interventional Radiology (PGY 6) Personal Pager: [phone] IR Team Pager: [phone] documented in this encounter Plan of Treatment Upcoming Encounters Date Type Department Care Team (Late st Contact Info) Description 01/24/2025 9:00 AM EDT TH Visit (TeleHealth) [place] [address] Gricel Stoddard APRN [facility] [place] [address] documented as of this encounter Procedures Procedure Name Priority Date/Time Associated Diagnosis Comments IR EMBOLIZATION CEREBRAL Routine 04/04/2022 4:36 PM EDT Right internal carotid artery aneurysm documented in this encounter Results * IR Embolization Cerebral [...] nonruptured documented in this encounter Care Teams Plaster Caster Relationship Specialty Start Date End Date Odalys Escobar APRN [address] [facility] [place] [address] PCP - General Family Medicine 11/26/20 02/22/23 documented as of this encounter
--- OUTSIDE RECORDS SUMMARY | 2024-07-30 16:33 | XMS_ITS | Encounter Summary ---
[place] [address] Care Team Providers Care Metal Crafts Teacher Name Role Phone Luz Odalys TOSHIA Primary Care Provider [phone] Encounter Details Date Type Department Care Team (Late st Contact Info) Description 01/03/2022 Telephone [place] [phone] Amelia Llanos Social History Tobacco Use Types [...] * Telephone Encounter - Amelia Llanos - 01/03/2022 12:36 PM EST Lab orders faxed to [facility] at the request of LLOYD Sabillon. documented in this encounter Plan of Treatment Upcoming Encounters Date Type Department Care Team (Late st Contact Info) Description 01/24/2025 9:00 AM EDT TH Visit (TeleHealth) [place] [address] Gricel Stoddard APRN [facility] [place] [address] documented as of this encounter Visit Diagnoses Not on filedocumented in this encounter Care Teams Metal Crafts Teacher Relationship Specialty Start Date End Date Odalys Escobar APRN [address] [place] [address] PCP - General Family Medicine 11/26/20 02/22/23 documented as of this encounter
--- OUTSIDE RECORDS SUMMARY | 2024-07-30 16:33 | XMS_ITS | Encounter Summary ---
Author Organization [facility] [place] [address] Care Team Providers Care Grating Machine Operator Name Role Phone Odalys Escobar APRN Primary Care Provider [phone] Encounter Details Date Type Department Care Team (Latest Contact Info) Description 11/21/2022 10:25 AM EST Laboratory Appointment Lab [address] [place] [address] Right internal carotid artery aneurysm Social History [...] AM EDT TH Visit (TeleHealth) [place] [address] Gricel Stoddard APRN [facility] [place] [address] (work) documented as of this encounter Procedures Procedure Name Priority Date/Time Associated Diagnosis Comments HC VENIPUNCTURE Routine 11/21/2022 10:58 AM EST Right internal carotid artery aneurysm HC PLATELET COUNT Routine 11/21/2022 10: 58 AM EST Right internal carotid artery aneurysm documented in this encounter Results * (ABNORMAL) Platelet count (11/21/2022 10:58 AM EST) Platelet 460(H) 145 - 357 x10(3)/mc L [facility] Immature Plt % 1.0 0.0 - 7.4 % [facility] Comment: Limitation of the Immature Platelet Fraction (IPF)-May be less reliable when the platelet count is less than 19v994/uL due to statistical imprecision. The IPF value [...] in a decreased state of production. References: [employer] The Clinical Value of the Immature Platelet Fraction (IPF) in Cell Recovery Document Number [id number] 04/2011 [employer] The Role of the Immature Platelet Fraction (IPF) in the Differential Diagnosis of Thrombocytopenia, Document [id number] V05 P0514 Blood 11/21/2022 10:5 8 AM EST 11/21/2022 11:06 AM EST Narrative Resulting Agency Comment Spec In Lab Gricel L Stoddard AIRCRAFT INSPECTION RECORD CLERK HEMATOLOGY ORDERABLE S [facility] [place] [address] * Creatinine (11/21/2022 10:58 AM EST) Creatinine 0.94 0.70 - 1.20 mg/dL [facility] Est Glomerular Filtration Rate 76 >=60 mL/min/1. 73 m?? [facility] Comment: This patient's estimated GFR was [...] Stoddard APRN CHEMISTRY ORDERABLES Performing Organization Address City/State/[facility] Co de Phone Number [facility] [place] [address] documented in this encounter Visit Diagnoses Diagnosis Right internal carotid artery aneurysm Cerebral aneurysm, nonruptured documented in this encounter Care Teams Grating Machine Operator Relationship Specialty Start Date End Date Odalys Escobar APRN [address] [place] [address] PCP - General Family Medicine 11/26/20 02/22/23 documented as of this encounter
--- OUTSIDE RECORDS SUMMARY | 2024-07-30 16:33 | XMS_ITS | Encounter Summary ---
[place] [address] Care Team Providers Care Travel Registered Nurse Nicu Name Role Phone Odalys Escobar APRN Primary Care Provider [phone] Reason for Referral * Diagnostic Test (Routine) - Closed Specialty Diagnoses / Procedures Referred By Contac t Referred To Contact Radiology Diagnoses Cerebral aneurysm, nonruptured Procedures IR Arteriogram Cerebral Gricel Stoddard LINE OUT MAN [facility] [place] [address] [place] [address] Referral ID Status Reason Start Date Expiration Date V isits Requested Visits Authorized [id number] Closed Specialty Service Requested 01/28/2022 11/12/2022 1 1 Reason for Visit * Diagnostic Test (Routine) - Closed Specialty Diagnoses / Procedures Referred By Contac t Referred To Contact Radiology Diagnoses Cerebral aneurysm, nonruptured Procedures IR Arteriogram Cerebral Gricel Stoddard APRN [facility] [place] [address] [facility] [place] [address] Referral ID Status Reason Start Date Expiration Date V isits Requested Visits Authorized [id number] Closed Specialty Service Requested 01/28/2022 11/12/2022 1 1 Encounter Details Date Type Department Care Team (Latest Contact Info) Description 01/28/2022 8:25 AM EDT - 01/28/2022 11:59 PM EDT Hospital [place] [address] Gricel Stoddard APRN [facility] [place] [address] Right internal carotid artery aneurysm; Cerebral aneurysm, nonruptured Discharge Disposition: Home Social History Tobacco Use [...] 36.3 ??C (97.3 ??F) 01/28/2022 12:31 PM E DT Respiratory Rate 16 01/28/2022 2:45 PM EDT Oxygen Saturation 98% 01/28/2022 3:11 PM EDT Inhaled Oxygen Concentration - - Weight - - Height - - Body Mass Index - - documented in this encounter Discharge Instructions * Discharge Instructions* Raulito Galindo RN - 01/28/2022 11:17 AM EDT [facility] Interventional Radiology Radial Artery Instructions Procedure: Cerebral Angiogram Puncture Site: Right radial artery Date: 01/28/2022 Physician: Dr. Bloom 1. At home we advise you to rest quietly in bed or on the couch until the next morning. You may getup and walk around but keep your activity [...] pressure on the site for 15 minutes andcall your doctor. Call for help. If the bleeding persists, reapply firm pressure, call 911 for an ambulance and go to your local Emergency Department. 2. If you notice a sudden change in the feeling (numbness, tingling and/or pain) of your hand on the side of the puncture call your doctor. 3. You may develop a bruise and swelling at the catheter insertion site. If you develop a bulge, you may have bleeding inside. Contact your doctor or [...] the first few days at home. Signs include: Redness, swelling with increased soreness, yellow, green or [...] on your feet. You may return to work with the above restrictions on . The [...] or hoildays, joyce and ask for the Radiologyresident electron beam machine welder setter. OR Peripheral IV site -- slight redness, or tenderness is normal, you can use a warm compress. If tenderness and redness increases or foul drainage occurs, please contact your M. D. Revised 08/29/19 documented in this encounter Medications at Time of Discharge Medication Sig Dispensed Refills Start Date End Date ALPRAZolam (Xanax) 1 mg Tablet Take 1 mg by mouth daily. Extended release propranoloL (Inderal) 10 mg TabletIndications:Subclin ical hyperthyroidism [...] Take 10 mg by mouth nightly. 05/28/2019 methylphenidate (RITALIN) 20 mg Tablet Take 20 mg by mouth daily. 12/16/2021 11/16/2022 documented as of this encounter Progress Notes * Raulito Galindo RN - 01/28/2022 1:52 PM EDT 1352 - Dr. Bloom given telephone report of sequence of events. * Raulito Galindo RN - 01/28/2022 1:26 PM EDT 1326 - Dr. Murphy Maldonado at the bedside and has evaluated the patient. No new orders. * Raulito Galindo RN - 01/28/2022 1:16 PM EDT 1316 - Dr. Murphy Maldonado responded and telephone report given re: right wrist concerns, ie: weak pulses, cool temp and mild duskiness increase compared to the left hand as well as pain level. * Raulito Galindo RN - 01/28/2022 1:13 PM EDT 1313 - Dr. Murphy Maldonado paged * Raulito Galindo RN - 01/28/2022 12:55 PM EDT 1253 - Dr. Bloom paged. * Raulito Galindo RN - 01/25/2022 11:08 AM EDT [facility]AB[facility] Name: ROBERT BACH Date of : 1975 AGE: 46 y.o. Address: [address] [facility] [address] (home) Mobile: Telephone Information: Referring Provider: Gricel Stoddard REASON FOR VISIT: Order Questions Answers Where will study be performed? [facility] Radiology [120] Is the patient on [...] mg IV Heparin 3000 units IA, Nitro 200mcgIA, Verapamil 2.5mg IA 1054 to procedure room 1 via stretcher. Onto table supine. All monitors, O2, safety strap in place.Meds per protocol. TR BAND REMOVAL TIME ARRIVED [...] 4 after TR Band removal. Pt. and shuttle van driver given radial d/c instructions. All questions/concerns addressed. Laboratory Results: documented in this encounter H&P Notes * Jah Maldonado MD - 01/28/2022 10:15 AM EDT Images from the original note were not included. Neuro Interventional Procedure H&P 01/28/2022 Robert Bach [id number] 1975 CC: DSA for ICA aneurysm HPI/Indication: [...] (from the past 72 hour(s)) P2Y12 [place]platelet ([facility] Result Value Ref Range P2Y12 158 PRU [...] MD documented in this encounter Miscellaneous Notes * Brief Op Note - Jah Maldonado MD - 01/28/2022 12:20 PM EDT Brief Operative Note Patient Name: Robert Bach : [id number] MR#: [id number] Case Date: 01/28/2022 Surgeon: Joel Bloom Preoperative [...] AM EDT TH Visit (TeleHealth) [place] [address] Gricel Stoddard APRN [facility] [place] [address] documented as of this encounter Procedures Procedure Name Priority Date/Time Associated Diagnosis Comments HC P2Y12 ANTIPLATELET ASSAY (VERIFYNOW) Routine 01/28/2022 2:15 PM EDT IR ARTERIOGRAM CEREBRAL Routine 01/28/2022 12:26 PM EDT Cerebral aneurysm, nonruptured documented in this encounter Results * P2Y12 Antiplatelet ([facility] [place]) (01/28/2022 2:15 PM EDT) P2Y12 222 PRU [facility] Comment: Test results [...] conjunction with a baseline, pre-treatment determination. Blood 01/28/2022 2:15 PM EDT 01/28/2022 2:32 PM EDT Narrative Resulting Agency Comment Spec In Lab Gricel Stoddard APRN HEMATOLOGY ORDERABLE S [facility] [place] [address] * IR Arteriogram Cerebral (01/28/2022 12:26 PM EDT) Anatomical Region Laterality Modality X-Ray Angiograph y Narrative 02/18/2022 8:22 AM EDT Awaiting images to be uploaded to PACS Refer to eDH for procedure note Gricel Stoddard APRN IMG IR ORDERABLES * APTT (01/28/2022 7:59 AM EDT) Partial Thromboplastin Time 35 25 - 37 sec [facility] Comment: The PTT is NOT appropriate for heparin monitoring. Use the Anti-Xa level for heparin monitoring (HEP UFH) or LMWH monitoring (HEP LMW). A PTT less than 37 seconds generally indicates adequate hemostasis. Blood 01/28/2022 7:59 AM EDT 01/28/2022 8:17 AM EDT Narrative Resulting Agency Comment Spec In Lab Gricel Stoddard LINE OUT MAN HEMATOLOGY ORDERABLE S Performing Organization Address [facility] Co de Phone Number [facility] [place] [address] * Prothrombin Time (01/28/2022 7:59 AM EDT) Prothrombin Time 10.3 9.4 - 12.5 sec [facility] International Normalization Ratio 0.9 [facility] Comment: An INR <2.0 indicates adequate procoagulant activity for hemostasis in most patients without underlying bleeding disorders, though the INR may not adequately reflect hemostatic capacity in patients with liver disease and synthetic impairment. The recommended target INR range for therapeutic anticoagulation is 2.0 ? 3.0 for most applications, though lower and higher ranges may be appropriate depending on clinical circumstances. Blood 01/28/2022 7:59 AM EDT 01/28/2022 8:17 AM EDT Narrative Resulting Agency Comment Spec In Lab Gricel Stoddard LINE OUT MAN HEMATOLOGY ORDERABLE S Performing Organization Address [facility]/ZIP Co de Phone Number [facility] [place] [address] * (ABNORMAL) Basic Metabolic Panel (non-fasting) (01/28/2022 7:59 AM EDT) Glucose 116 65 - 199 mg/dL [facility] Comment:Diabetes: >=200 mg/d L plus symptoms Blood Urea Nitrogen 18 8 - 18 mg/dL [facility] Creatinine 0.84 0.70 - 1.20 mg/dL [facility] Sodium 142 135 - 145 mmol/L [facility] Potassium 4.1 3.5 - 5.0 mmol/L [facility] Comment: Please note: ??Patients with WBC >100,000 may have falsely elevated Potassium levels. ??For accurate Potassium quantification in these patients send serum separator tube (gold top) for subsequent determinations. ??Contact the Clinical Chemistry Laboratory if there are any questions. Chloride 109(H) 98 - 107 mmol/L [facility] Carbon Dioxide 21(L) 22 - 31 mmol/L [facility] Anion Gap 12 5 - 15 mmol/L [facility] Calcium 9.0 8.5 - 10.5 mg/dL [facility] Est Glomerular Filtration Rate 84 >=60 mL/min/1. 73 m?? [facility] Comment: This patient? s estimated [...] Agency Comment Spec In Lab Gricel Stoddard LINE OUT MAN CHEMISTRY ORDERABLES [facility] [place] [address] * (ABNORMAL) Hemogram (01/28/2022 7:59 AM EDT) White Blood Cell 10.8(H) 4.0 - 9.5 x10(3)/ L [facility] Red Blood Cell 4.65 4.00 - 5.21 x10(6)/[facility] Hemoglobin 15.4 11.7 - 15.5 g/dL [facility] Hematocrit 45.8 35.7 - 45.8 % [facility] Mean Cell Volume 98.5(H) 82.6 - 94.4 fL [facility] Mean Cell Hemoglobin 33.1(H) 27.1 - 32.0 pg [facility] Mean Cell Hemoglobin Concentration 33.6 31.7 - 35.0 g/dL [facility] Platelet 354 145 - 357 x10(3)/[facility] RDW Standard Deviation 50.1(H) 37.0 - 46.0 fL [facility] RDW coefficient of variation 13.6 11.5 - 14.1 % [facility] Mean Platelet Volume 10.0 7.6 - 12.9 fL [facility] NRBC% auto 0.0 % [facility] NRBC Absolute 0.000 0.000 - 0.000 x10(3)/[facility] Blood 01/28/2022 7:59 AM EDT 01/28/2022 8:17 AM EDT Narrative Resulting Agency Comment Spec In Lab Gricel Stoddard APRN HEMATOLOGY ORDERABLE S [facility] [place] [address] documented in this encounter Visit Diagnoses Diagnosis Right internal carotid artery aneurysm Cerebral aneurysm, nonruptured Cerebral aneurysm, nonruptured documented in this encounter Administered Medications Inactive Administered Medications - up to 3 most recent administrations Medication Order MAR Action Action Date Dose Rate Site fentaNYL (pf) (50 mcg/mL) multi-dose injection 25-50 mcg 25-50 mcg, Intravenous, [...] verbal order., Angio/IR (Intra-Procedure), Routine Given 01/28/2022 11:46 AM EDT 25 mcg Given 01/28/2022 11:03 AM EDT 25 mcg heparin (porcine) (1,000 units/mL) injection 3,000 Units 3,000 Units, Intra-arterial, ONCE, 1 dose, On Mon01/28/22 at 1045, For radial artery access. For use in Interventional Radiology (IR) only for procedure with direct provider supervision and verbal order., Angio/IR (Intra-Procedure), Routine Given 01/28/2022 11:22 AM EDT 3,000 Units lidocaine (Xylocaine) 1% (10 mg/mL) injection 10 mg 10 mg, Subcutaneous, ONCE, 1 dose, On Mon01/28/22 at 1045, For use in Interventional Radiology (IR) only for procedure with direct provider supervision and verbal order., Angio/IR (Intra-Procedure), Routine Given 01/28/2022 11:20 AM EDT 10 mg midazolam (pf) (Versed) (1 mg/mL) multi-dose injection 0.5-1 mg 0.5-1 mg, Intravenous, EVERY [...] verbal order., Angio/IR (Intra-Procedure), Routine Given 01/28/2022 11:46 AM EDT 0.5 mg Given 01/28/2022 11:03 AM EDT 0.5 mg nitroGLYcerin 100 mcg/mL intracoronary dilution 200 mcg 200 mcg, Intra-arterial, ONCE, 1 dose, On Mon01/28/22 at 1045, For radial artery access. For use in Interventional Radiology (IR) only for procedure with direct provider supervision and verbal order., Angio/IR (Intra-Procedure), Routine Given 01/28/2022 11:22 AM EDT 200 mcg verapamiL (Isoptin) (2.5 mg/mL) injection 2.5 mg 2.5 mg, Intra-arterial, ONCE, 1 dose, On Mon01/28/22 at 1045, Administer over 2 Minutes, For radial artery access. For use in Interventional Radiology (IR) only for procedure with direct provider supervision and verbal order., Angio/IR (Intra-Procedure) Given 01/28/2022 11:22 AM EDT 2.5 mg 30 mL/hr documented in this encounter Care Teams Travel Registered Nurse Nicu Relationship Specialty Start Date End Date Odalys Escobar, TOSHIA [address] [place] [address] PCP - General Family Medicine 11/26/20 02/22/23 documented as of this encounter
--- OUTSIDE RECORDS SUMMARY | 2024-07-30 16:33 | XMS_ITS | Encounter Summary ---
Author Organization [facility] [place] [address] Care Team Providers Care Director Of Corporate Responsibility Name Role Phone LuzOdalys TOSHIA Primary Care Provider [phone] Reason for Visit * Auth/Cert Specialty Diagnoses / Procedures Referred By Jennifer guillen Referred To Contact Diagnoses Right internal carotid artery aneurysm RIGHT INTERNAL CAROTID ARTERY ANEURYSM Procedures PRO PERM OCCLUSION/EMBOLIZATION, PERCUT, TREE DEADENER @TRANSCATHETER OCCLUSION/EMBOLIZATION FOR TUMOR DESTRUCTION Referral ID Status Reason Start Date Expiration Date Visits Re quested Visits Authorized [id number] 1 1 Encounter Details Date Type Department Care Team (Latest Contact Info) Description 04/04/2022 9:52 AM EDT - 04/05/2022 1:51 PM EDT Hospital Encounter [facility] [place] [address] Sary Bloom MD [facility] [place] [address] Right internal carotid artery aneurysm Discharge Disposition: [...] 36.5 ??C (97.7 ??F) 04/05/2022 12:00 PM E DT Respiratory Rate 16 04/05/2022 12:00 PM EDT [...] On 04/04/2022, Franchesca Dickson was admitted to [facility] [place] coil embolization of the R ICA [...] Nut Rash Commonly used phone numbers Neuro-oncology [phone] Radiation oncology [phone] Endocrinology [phone] Infectious disease [phone] Neurology [phone] Hematology/Oncology [phone] Plastic Surgery [phone] Trauma/General Surgery [phone] Urology [phone] Instructions Given to Patient at Discharge: Patient Instructions [facility] ENDOVASCULAR TREATMENT OF UNRUPTURED INTRACRANIAL ANEURYSM DISCHARGE [...] weeks. Please call the Neurosurgery Office at [phone] if you do not receive a scheduled appointment within two weeks. You will follow-up with: [x] Dr. Bloom Imaging: [x] No imaging required at initial follow up HOW TO REACH NEUROSURGERY Contact your Doctor Office Hours: Monday through Monday, 8am-5pm. Call . On weekends or after office hours: Call [phone] and ask the dust collector operator to page the Neurosurgery Resident supervisor personnel clerks. IMPORTANT PHONE NUMBERS: Outpatient Nurse (Kirstie Rockwell) Inpatient Nurses Neurosurgical Resident/Advanced Practice Provider On-Call (after 5pm or before 8am) Neurosurgery offices (Monday through Monday between 8am-5pm): Adult Neurosurgery Dr. Reginald Garza Pediatric Neurosurgery Dr. Arabella Rai Advanced Practice Providers Alyson Weaver, Nurse Practitioner (outpatient) Betsy Truong, Physician Acetylene Torch Solderer (inpatient) Mayra Freitas, Nurse Practitioner (inpatient) Sherrie Graf, Nurse Practitioner (inpatient) Marisel Garrett, Physician Acetylene Torch Solderer (inpatient) Marisel Herbert, Physician Acetylene Torch Solderer (inpatient) Jannet Nguyen, Physician Acetylene Torch Solderer (outpatient: spine) Joe Crenshaw, Nurse Practitioner (inpatient/outpatient) Raulito Reza, Physician Acetylene Torch Solderer (outpatient) Sarah Smith, Nurse Practitioner (outpatient: neuro-oncology) * Your surgeon may not be train caller, so be ready to tell about yourself and your surgery when you call, especially after hours or on the weekend. JACOBY Hawkins 04/05/2022 documented in this encounter Discharge Instructions * Discharge Instructions* Lilibeth Lopez RN - 04/04/2022 4:14 PM EDT [facility] Interventional Radiology Post Angiography Instructions Procedure: Cerebral [...] hoildays, call and ask for the residential support worker supervisor personnel clerks. 10. If you are a diabetic and [...] Herbert PA - 04/04/2022 4:02 PM EDT [facility] ENDOVASCULAR TREATMENT OF UNRUPTURED INTRACRANIAL ANEURYSM DISCHARGE [...] weeks. Please call the Neurosurgery Office at [phone] if you do not receive a scheduled appointment within two weeks. You will follow-up with: [x] Dr. Bloom Imaging: [x] No imaging required at initial follow up HOW TO REACH NEUROSURGERY Contact your Doctor Office Hours: Monday through Monday, 8am-5pm. Call . On weekends or after office hours: Call [phone] and ask the dust collector operator to page the Neurosurgery Resident supervisor personnel clerks. IMPORTANT PHONE NUMBERS: Outpatient Nurse (Kirstie Rockwell) Inpatient Nurses Neurosurgical Resident/Advanced Practice Provider On-Call (after 5pm or before 8am) Neurosurgery offices (Monday through Monday between 8am-5pm): Adult Neurosurgery Dr. Reginald Garza Pediatric Neurosurgery Dr. Arabella Rai Advanced Practice Providers Alyson Weaver, Nurse Practitioner (outpatient) Betsy Truong, Physician Acetylene Torch Solderer (inpatient) Mayra Freitas, Nurse Practitioner (inpatient) Sherrie Graf, Nurse Practitioner (inpatient) Marisel Garrett, Physician Acetylene Torch Solderer (inpatient) Marisel Herbert, Physician Acetylene Torch Solderer (inpatient) Jannet Nguyen, Physician Acetylene Torch Solderer (outpatient: spine) Joe Crenshaw, Nurse Practitioner (inpatient/outpatient) Raulito Reza, Physician Acetylene Torch Solderer (outpatient) Sarah Smith, Nurse Practitioner (outpatient: neuro-oncology) * Your surgeon may not be train caller, so be ready to tell about [...] devices Clothing Shirt;Pants;Undergarments (Comment);Footwear Patient Electronics Cell phone;Brand Director Medications at Discharge Medications Returned to Patient/Family [...] Miles RN - 04/04/2022 8:22 PM EDT 1900: Report received from CHANTELLE Almanzar. Care assumed. [...] IR Arteriogram Cerebral 01/28/2022 Sary Bloom MD [facility] INTERVENTIONL RAD Medications: No current facility-administered [...] plan. Conrado Metzger RN BSN CM Neurology Wafer Polishing Lead WorkerShip Washer of Care Management Pager [phone] * Initial Assessments - Cassie Metzger RN [...] Admission order reviewed. Primary Insurance on file: [facility] Secondary Insurance on file:@ Primary care provider on file: Odalys Escobar APRN [phone] Pharmacy: [facility] [address] [address] Advance Care Planning: Attempt Cardiopulmonary Resuscitation - Inpatient <no information> -Advanced Directive: No, declines Current Functional Ability: Independent Functional Status Prior to Admission: Independent Home Environment: Others in the home: spouse. Current Living Arrangements: home/apartment/condo. Accessibility Concerns:4 ZEESHAN then all one level. Current DME: [address] [facility] [address] Social & Family Supports: All names listed below confirmed with patient as current and correct Extended Emergency Contact Information Primary Emergency Contact: David Dickson Address: [address] [place] [address], [place] [address] [facility] [place] Relation: Spouse Secondary Emergency Contact: Marissa Santana Address: [address] [place] [address] [facility] Relation: Mother Current Care Provided by: self [...] via car/ when medically ready. Registered Nurse Wafer Polishing Lead Worker / Shelter Director will continue to follow patient???s progress and remain available if situation changes for coordination of care, psychosocial support and/or discharge planning. Office of Care Management Conrado Metzger RN BSN CM Neurology Wafer Polishing Lead WorkerShip Washer of Care Management Pager [phone] * Brief Op Note - Sary Bloom MD - 04/04/2022 3:40 PM EDT Brief Operative Note Patient Name: Franchesca Dickson : [id number] MR#: [id number] Case Date: 04/04/2022 Surgeon: Surgeon(s) and Role: [...] AM EDT TH Visit (TeleHealth) [place] [address] Gricel Stoddard APRN [facility] [place] [address] documented as of this encounter Procedures Procedure Name Priority Date/Time Associated Diagnosis Comments HC PARTIAL THROMBOPLASTIN TIME STAT 04/04/2022 9:17 PM EDT Perm Occlusion/Embolization, Cruz, Yesenia ([id number]) 04/04/2022 12:40 PM EDT RIGHT INTERNAL CAROTID ARTERY ANEURYSM HC P2Y12 ANTIPLATELET ASSAY (VERIFYNOW) Routine 04/04/2022 10:43 AM EDT Right internal carotid artery aneurysm documented in this encounter Results * APTT (04/04/2022 9:17 PM EDT) Partial Thromboplastin Time 35 25 - 37 sec [facility] Comment: The PTT is NOT appropriate for heparin monitoring. Use the Anti-Xa level for heparin monitoring (HEP UFH) or LMWH monitoring (HEP LMW). A PTT less than 37 seconds generally indicates adequate hemostasis. Blood 04/04/2022 9:17 PM EDT 04/04/2022 9:17 PM EDT Narrative Resulting Agency Comment Spec In Lab Mayra Freitas APRN HEMATOLOGY ORDERABLE S [facility] [place] [address] * P2Y12 Antiplatelet ([facility]) (04/04/2022 10:43 AM EDT) P2Y12 35 [facility] Comment: [...] Agency Comment Spec In Lab Gricel Stoddard INVOICE CONTROL CLERK HEMATOLOGY ORDERABLE S Performing Organization Address City/State/[facility] Co de Phone Number [facility] [place] [address] documented in this encounter Visit Diagnoses Diagnosis [...] Reed RN)1200 (Rate/Dose Verify - Provider: Maia Reed, CHANTELLE)1201 (Stopped - Provider: Maia Reed RN) PRN [...] - Provider: Chica Reich RN) acetaminophen (Tylenol) suppository 975 mg(Linked Group 1) [...] PRN, Starting on 04/04/22 at 1553, Until Mon04/05/22 at 1552, Pain, mild pain (1-3), Maximum dose of acetaminophen is 4000 mg from all sources in 24 hours. When ordered for pain, acetaminophen should be given even when other ordered pain medications are indicated. , Routine documented in this encounter Care Teams Director Of Corporate Responsibility Relationship Specialty Start Date End Date Odalys Escobar, TOSHIA [address] [place] [address] PCP - General Family Medicine 11/26/20 02/22/23 documented as of this encounter
--- OUTSIDE RECORDS SUMMARY | 2024-07-30 16:33 | XMS_ITS | Encounter Summary ---
[place] [address] Care Team Providers Care Notereader Name Role Phone Odalys Escobar APRN Primary Care Provider [phone] Reason for Referral * Diagnostic Test (Routine) - Closed Specialty Diagnoses / Procedures Referred By Contac t Referred To Contact Radiology Diagnoses Right internal carotid artery aneurysm Procedures IR Arteriogram Cerebral Gricel Stoddard TIE MAN [facility] [place] [address] [place] [address] Referral ID Status Reason Start Date Expiration Date V isits Requested Visits Authorized [id number] Closed Specialty Service Requested 05/13/2022 2023 1 1 Reason for Visit * Diagnostic Test (Routine) - Closed Specialty Diagnoses / Procedures Referred By Contac t Referred To Contact Radiology Diagnoses Right internal carotid artery aneurysm Procedures IR Arteriogram Cerebral Gricel Stoddard APRN [facility] [place] [address] [place] [address] Referral ID Status Reason Start Date Expiration Date V isits Requested Visits Authorized [id number] Closed Specialty Service Requested 05/13/2022 2023 1 1 Encounter Details Date Type Department Care Team (Latest Contact Info) Description 11/21/2022 11:04 AM EST - 11/21/2022 11:59 PM EST Hospital Encounter Radiology at [facility] [place] [address] Gricel Stoddard APRN [facility] [place] [address] Right internal carotid artery aneurysm Discharge Disposition: [...] Sign Reading Time Taken Comments Blood Pressure 95/69 11/21/2022 3:45 PM EST Pulse 71 11/21/2022 1:25 PM EST Temperature 36 ??C (96.8 ??F) 11/21/2022 1:45 PM EST Respiratory Rate 16 11/21/2022 2:00 PM EST Oxygen Saturation 96% 11/21/2022 3:45 PM EST Inhaled Oxygen Concentration - - Weight - - Height - - Body Mass Index - - documented in this encounter Discharge Instructions * Discharge Instructions* Toshia Galicia RN - 11/21/2022 12:[address] [facility] Interventional Radiology Post Angiography Instructions Procedure: Diagnostic Cerebral Angiogram Puncture Site: Right HUMAN RESOURCES ASSOCIATE Date: 11/21/2022 Physician: Leonor Reyna & Silvio Linares 1. At home we advise you to [...] hoildays, call and ask for the residential leasing agent institutional research coordinator. OR Vascular Department at until 4:45pm. After 4:45pm call and ask for the Vascular resident institutional research coordinator. 10. If you are a diabetic and [...] Sig Dispensed Refills Start Date End Date cloZAPine (Clozaril) 100 mg Tablet 10/24/2022 OLANZapine [...] mouth daily. 90 tablet 3 04/06/2022 06/22/2023 documented as of this encounter Progress Notes * Anne Kruse RN - 11/21/2022 11:59 PM EST Interventional and Vascular Radiology Post-Procedure Call Name: Franchesca Dickson Age: 47 y.o. Sex: Female Date of : 1975 (home) Telephone Information: PCP: Odalys Escobar APRN [phone] Date/Time of call: November 22, 2022/8:25 AM Procedure: Cerebral Arteriogram Procedural Provider: Dr. Reyna Contact with patient or if not, with whom?: Yes, pt Message left on answering machine?: No Are you having pain related to your procedure now?: No Are you having any swelling or bleeding from the site? No Are you having any other problems related to your procedure?: No Comments: Did you understand the discharge instructions given and do you have any questions?: Yes Comments: * Toshia Galicia RN - 11/21/2022 12:30 PM EST ANGIO NURSING DATABASE Name: Franchesca Dickson Date of : 1975 AGE: 47 y.o. Address: [address] [place] [address] (home) Mobile: Telephone Information: Referring Provider: Gricel Stoddard REASON FOR VISIT: Order Questions Answers Where will study be performed? [facility] Radiology [120] Is the patient on anticoagulant / antiplatelet therapy ? Aspirin,Clopidogrel Reason for exam and clinical history: pipeline stent DERRICK aneurysm, eval for integration of stent Is the patient ? Unknown Does patient require sedation? IV Please ensure a History and Physical exam is completed within 30 days of the Radiology Procedure OK No data recorded Allergies Allergen Reactions ??? Shellfish Containing Products [...] units IA, Nitro 200mcgIA, Verapamil 2.5mg IA ??11/21/22 Dx Cerebral Angiogram Fentanyl 75mcg IV, Versed 1.0mg IV ? 1230 to procedure room 1 via stretcher. Onto table supine. All monitors, O2, safety strap in place.Meds per protocol. Arterial Puncture Post Procedure Site: Right HUMAN RESOURCES ASSOCIATE Closure device used: Mynx Time sheath removed: 1325 Time of hemostasis: 1337 Hematoma present? no Anticipated up time: 1537 Labs to be performed day of procedure: Platelet count, creatinine. Medications to discontinue: None, continue ASA and Plavix. Position: supine Sedation: moderate Additional medications for procedure: Lidocaine 1%, radial access Consent: day of procedure Laboratory Results: Lab Results Component Value Date INR 0.9 01/28/2022 Lab Results Component Value Date CREATININE 0.84 01/28/2022 Lab Results Component Value Date K 4.1 01/28/2022 Lab Results Component Value Date PLATELET 354 01/28/2022 documented in this encounter H&P Notes * Chriss Reyna MD - 11/21/2022 11:39 AM EST INTERVENTIONAL RADIOLOGY FOCUSED H&P: Procedure: Cerebral angiogram Update to H&P: The patient's history and physical exam have been reviewed and completed. There has been NO interval change from that of the pre-procedural note done within the last 30 days. There is NO change in the procedural plan. Physical Exam: Cardiovascular: Regular, Normal Pulmonary: Breath sounds clear to auscultation Meds: Current medications reviewed. No medications held. Labs: Day of procedure labs reviewed with no change in plan. The planned procedure (and sedation plan if appropriate) , its benefits and risks, and alternativeswere discussed with the patient. The patient consented to the procedure. PRE-SEDATION ASSESSMENT: Sedation Plan: moderate (conscious sedation) ASA: 2: Patient with mild systemic disease Mallampati: II: tonsillar pillars are blocked by the tongue Confirm NPO status: Yes History of anesthetic complications: No Current medications reviewed: Yes Allergies reviewed: Yes Source Note - Gricel Stoddard APRN - 11/16/2022 9:14 AM [...] 11/16/2022 9:15 AM documented in this encounter Miscellaneous Notes * Brief Op Note - Chriss Reyna MD - 11/21/2022 1:41 PM EST INTERVENTIONAL RADIOLOGY BRIEF PROCEDURE NOTE Patient Name: Franchesca Dickson : 1975 Case Date: 11/21/2022 Operators: Attending: Dr. Linares Resident/Fellow/Student: Chriss Reyna MD PGY-5 Post-operative diagnosis/Indication: right ICA aneurysm s/p pipeline stent Name of Procedure Performed: Diagnostic cerebral angiogram Brief description of the procedure: ?? Attempted but unsuccessful right radial access ?? US guided access of right HUMAN RESOURCES ASSOCIATE with placement of 5 Fr sheath ?? Selection of right ICA followed by angiography ?? Cathters removed and hemostasis obtained with Mynx closure device and manual compression Findings of the procedure: ?? No filling of the right ICA aneurysm s/p pipeline stent ?? Small swelling/hematoma at right groin access site at conclusion of procedure EBL: <10 mL Specimens: _N/A_ Complications: No immediate Plan/Disposition: To angio recovery, flat for 2 hours May discharge when criteria met. FULL PROCEDURE NOTE TO FOLLOW IN IMAGE REPORT documented in this encounter Plan of Treatment Upcoming Encounters Date Type Department Care Team (Late st Contact Info) Description 01/24/2025 9:00 AM EDT TH Visit (TeleHealth) [place] [address] Gricel Stoddard APRN [facility] [place] [address] documented as of this encounter Procedures Procedure Name Priority Date/Time Associated Diagnosis Comments IR ARTERIOGRAM CEREBRAL Routine 11/21/2022 1:43 PM EST Right internal carotid artery aneurysm documented in this encounter Results * IR Arteriogram Cerebral [...] have questions please contact the health healthcare specialist that requested your imaging first. ? --------ORIGINAL [...] 125 cm Glidewire, 0.035 inch J-wire, 5 Chilean Martin sheath, 5Fr vert catheter, Mynx vascular closure device. TECHNIQUE: The patient was brought to the angiography suite. The right groin was sterilely prepped and draped. Using micropuncture set, and ultrasound guidance, the femoral artery was accessed and the 5 Chilean pinnacle sheath was placed, flushed, and connected to a continuous heparinized saline infusion. 5 Chilean vert catheter was positioned in the descending [...] have questions please contact the health healthcare specialist that requested your imaging first. ? Impressions [...] have questions please contact the health healthcare specialist that requested your imaging first. ? Narrative [...] 125 cm Glidewire, 0.035 inch J-wire, 5 Chilean Martin sheath, 5Fr vert catheter, Mynx vascular closure device. TECHNIQUE: The patient was brought to the angiography suite. The right groin was sterilely prepped and draped. Using micropuncture set, and ultrasound guidance, the femoral artery was accessed and the 5 Chilean pinnacle sheath was placed, flushed, and connected to a continuous heparinized saline infusion. 5 Chilean vert catheter was positioned in the descending [...] 0.035 125 cm Glidewire, 0.035 inch J-wire,5 Chilean Martin sheath, 5Fr vert catheter, Mynx vascular closure device. TECHNIQUE: The patient was brought to the angiography suite. The rightgroin was sterilely prepped and draped. Using micropuncture set, and ultrasoundguidance, the femoral artery was accessed and the 5 Chilean pinnacle sheath wasplaced, flushed, and connected to [...] who have questions please contactthe health healthcare specialist that requested your imaging first. Gricel Stoddard APRN [facility] IR ORDERABLES documented in this encounter Visit Diagnoses Diagnosis Right internal carotid artery aneurysm Cerebral aneurysm, nonruptured documented in this encounter Administered Medications Inactive Administered Medications - up to 3 most recent administrations Medication Order MAR Action Action Date Dose Rate Site fentaNYL (pf) (50 mcg/mL) multi-dose injection 25-50 mcg 25-50 mcg, Intravenous, EVERY 3 MIN PRN, Starting on Mon11/21/22 at 1153, Until Mon11/21/22 at 1601, Pain, per unit protocol, For use in Interventional Radiology (IR) only for procedural sedation with direct provider supervision and verbal order. - Start dose: 50 mcg (reduce dose to 25 mcg if history of sedation sensitivity). - Titration dose: 25-50 mcg IV, (based on patient response) every 3 minutes PRN to maintain procedural pain less than 2 per Pain Scale. Maximum dose: 50 mcg/dose, 250 mcg/hour, Angio/IR (Intra-Procedure), Routine Given 11/21/2022 1:10 PM EST 25 mcg Given 11/21/2022 12:55 PM EST 25 mcg Given 11/21/2022 12:45 PM EST 25 mcg iodixanoL (Visipaque) (320 mg/mL) injection solution 200 mL 200 mL, Intra-arterial, ONCE PRN, 1 dose, Starting on Mon11/21/22 at 1333, Until Mon11/21/22 at 1314, Per Protocol, Routine Given 11/21/2022 1:14 PM EST 50 mLs lidocaine (Xylocaine) 1% (10 mg/mL) injection 10 mg 10 mg, Subcutaneous, ONCE, 1 dose, On Mon11/21/22 at 1215, For use in Interventional Radiology (IR) only for procedure with direct provider supervision and verbal order., Angio/IR (Intra-Procedure), Routine Given 11/21/2022 1:07 PM EST 10 mg midazolam (pf) (Versed) (1 mg/mL) multi-dose injection 0.5-1 mg 0.5-1 mg, Intravenous, EVERY 3 MIN PRN, Starting on Mon11/21/22 at 1248, Until Mon11/21/22 at 1601, Sedation, For use in Interventional Radiology (IR) only for procedural sedation with direct provider supervision and verbal order. - Start dose: 1 mg (Reduce dose to 0.5 mg if history of sedation sensitivity). - Titration dose: 0.5 mg - 1 mg (based on patient response) every 3 minutes PRN to obtain RASS score of -3. Maximum dose: 1 mg/dose, 5 mg/hour., Angio/IR (Intra-Procedure), Routine Given 11/21/2022 1:05 PM EST 0.5 mg Given 11/21/2022 12:50 PM EST 0.5 mg documented in this encounter Care Teams Notereader Relationship Specialty Start Date End Date Odalys Escobar APRN [address] [place] [address] PCP - General Family Medicine 11/26/20 02/22/23 documented as of this encounter
--- OUTSIDE RECORDS SUMMARY | 2024-07-30 16:33 | XMS_ITS | Encounter Summary ---
[place] [address] Care Team Providers Care Ship'S Surveyor Name Role Phone BrittnyOdalys templeton TOSHIA Primary Care Provider [phone] Reason for Visit * Auth/Cert Specialty Diagnoses [...] GI ENDOSCOPY COLONOSCOPY, DIAGNOSTIC Subhash Luna MD [facility] [place] [address] [facility] Referral ID Status Reason Start Date Expiration Date Visits Re quested Visits Authorized [id number] 1 1 Encounter Details Date Type Department Care Team (Late st Contact Info) Description 05/20/2022 9:00 AM EDT - 05/20/2022 10:00 AM EDT Surgery [place] [address] Subhash Luna MD [facility] [place] [address] EGD WITH BIOPSY (VU 2.39) Social History Tobacco Use Types Packs/Day Years [...] AM ED T Respiratory Rate 18 05/20/2022 10:00 AM EDT [...] the day after the test, use an ryut-wrk-veolkvz spray or lozenges to numbyour throat. Warm [...] occurs, please contact your doctor. Please call [phone] before 8pm Mon-Fri with problems, questions, or concerns. If you call after 8pm or on weekends, call the Hospital at [phone] and ask for the Brewer Helper dairy feed sales consultant and the water gas operator will contact that person for you. When should you call for help? Call [phone] anytime you think you may need emergency [...] more? You can view health information on [employer], your personal patient account. Log in or sign up today. Content Version: 12.2 ?? 0211-7046 [employer]. Care instructions adapted under license by [facility]. If you have questions about a medical condition or this instruction, always ask your healthcare professional. [employer] disclaims any warranty or liability for your [...] AM EDT TH Visit (TeleHealth) [place] [address] Gricel Stoddard APRN [facility] [place] [address] documented as of this encounter Procedures Procedure Name Priority Date/Time Associated Diagnosis Comments SURGICAL PATHOLOGY REPORT Routine 05/20/2022 9:48 AM EDT SPECIMEN TO PATHOLOGY Routine 05/20/2022 9:48 AM EDT SPECIMEN TO PATHOLOGY Routine 05/20/2022 9:48 AM EDT SPECIMEN TO PATHOLOGY Routine 05/20/2022 9:48 AM EDT SPECIMEN TO PATHOLOGY Routine 05/20/2022 9:48 AM EDT Colonoscopy, Biopsy ([id number]) 05/20/2022 9:24 AM EDT Persistent depressive disorder Bipolar affective disorder, remission status unspecified Diarrhea, unspecified type Irritable bowel syndrome with diarrhea Bloating Poor appetite Early satiety Unintentional weight loss Upper Gi Endoscopy, Biopsy ([id number]) 05/20/2022 9:24 AM EDT Persistent depressive disorder Bipolar affective disorder, remission status unspecified Diarrhea, unspecified type Irritable bowel syndrome with diarrhea Bloating Poor appetite Early satiety Unintentional weight loss UPPER GI ENDOSCOPY Routine 05/20/2022 9: 12 AM EDT COLONOSCOPY Routine 05/20/2022 9:12 AM EDT documented in this encounter Results * Surgical Pathology Report (05/20/2022 9:48 AM EDT) Final Diagnosis [id number] ? Location: 4T; EA10; A The signing [...] Mari Verified: ??05/24/2022 14:41 ??Pathologist Performed at: ??-[facility] [place] Dept. [place], [place], [place] DISCUSSION D - The findings are [...] labeled D1-D2. ??sns 05/24/2022 2:[address] [facility] GI Biopsy 05/20/2022 9:48 AM EDT 05/20/2022 9:48 AM EDT GI Biopsy 05/20/2022 9:48 AM EDT 05/20/2022 9:48 AM EDT GI Biopsy 05/20/2022 9:48 AM EDT 05/20/2022 9:48 AM EDT GI Biopsy 05/20/2022 9:48 AM EDT 05/20/2022 9:48 AM EDT Subhash Luna MD PATHOLOGY/CYTOLOGY O LEVI Performing Organization Address [facility] Co de Phone Number [facility] [place] [address] * Specimen to Pathology (05/20/2022 9:48 AM EDT) AP Specimen 05/20/2022 9:48 AM EDT 05/20/2022 9:[address] [facility] - 05/20/2022 9:48 AM EDT Specimen requisition ordered. ??Separate Pathology report to follow Subhash Luna MD PATHOLOGY/[place] [address] * Specimen to Pathology (05/20/2022 9:48 AM EDT) AP Specimen 05/20/2022 9:48 AM EDT 05/20/2022 9:[address] [facility] - 05/20/2022 9:48 AM EDT Specimen requisition ordered. ??Separate Pathology report to follow Subhash Luna MD PATHOLOGY/CYTOLOGY O LEVI Performing Organization Address [facility] [place] [address] * Specimen to Pathology (05/20/2022 9:48 AM EDT) AP Specimen 05/20/2022 9:48 AM EDT 05/20/2022 9:[address] [facility] - 05/20/2022 9:48 AM EDT Specimen requisition ordered. ??Separate Pathology report to follow Subhash Luna MD PATHOLOGY/CYTOLOGY O LEVI Performing Organization Address [facility]/[place] [address] * Specimen to Pathology (05/20/2022 9:48 AM EDT) AP Specimen 05/20/2022 9:48 AM EDT 05/20/2022 9:[address] [facility] - 05/20/2022 9:48 AM EDT Specimen requisition ordered. ??Separate Pathology report to follow Subhash Luna MD PATHOLOGY/CYTOLOGY O LEVI Performing Organization Address City/[facility] [place] [address] * UPPER GI ENDOSCOPY (05/20/2022 9:12 AM EDT) UPPER GI ENDOSCOPY [facility] Endoscopy Procedure Date: 05/20/2022 9:12 AM ? Patient Name: Franchesca Dickson ? Date of : 1975 ? Age: 46 ? Order #: [id number] ? Instrument Name: [id number] ? Procedure: ? Upper GI endoscopy Indications: ? Epigastric abdominal pain, ? Dyspepsia, diarrhea and bloating Providers: ? Subhash Luna MD, Victor M Merino ? Sandy, CHANTELLE, Stormy Hernandez MD: ?Javed Ramirez, Odalys Escobar Medicines: ? See [...] * COLONOSCOPY (05/20/2022 9:12 AM EDT) COLONOSCOPY [facility] Endoscopy Procedure Date: 05/20/2022 9:12 AM ? Patient Name: Franchesca Dickson ? Date of : 1975 ? Age: 46 ? Order #: [id number] ? Instrument Name: [id number] ? Procedure: ? Colonoscopy Indications: ? Abdominal pain and diarrhea Providers: ? Subhash Luna MD, Victor M Merino ? CHANTELLE Deglado, Stormy Hernandez MD: ?Odalys Coleman Medicines: ? [...] preparation was evaluated ? using the BBPS ([place] Bowel ? Preparation Scale) with scores of: [...] 0827 (New Bag - Prov ider: Joanie Monte, RN) documented in this encounter Care Teams Ship'S Surveyor Relationship Specialty Start Date End Date Odalys Escobar APRN [address] [place] [address] PCP - General Family Medicine 11/26/20 02/22/23 documented as of this encounter
--- OUTSIDE RECORDS SUMMARY | 2024-07-30 16:33 | XMS_ITS | Encounter Summary ---
[place] [address] Care Team Providers Care Hand Molder Meat Name Role Phone Odalys Escobar APRN Primary Care Provider [phone] Encounter Details Date Type Department Care Team (Latest Contact Info) Description 01/28/2022 7:35 AM EDT Laboratory Appointment Lab [address] [address] Cerebral aneurysm, nonruptured; Right internal carotid artery aneurysm Social History [...] AM EDT TH Visit (TeleHealth) [place] [address] Gricel Stoddard APRN [facility] [place] [address] documented as of this encounter Procedures Procedure Name Priority Date/Time Associated Diagnosis Comments HC P2Y12 ANTIPLATELET ASSAY (VERIFYNOW) Routine 01/28/2022 7:59 AM EDT Cerebral aneurysm, nonruptured HC HEMOGRAM Routine 01/28/2022 7:59 AM EDT Right internal carotid artery aneurysm HC PARTIAL THROMBOPLASTIN TIME Routine 01/28/2022 7:59 AM EDT Right internal carotid artery aneurysm HC PROTHROMBIN TIME Routine 01/28/2022 7 :59 AM EDT Right internal carotid artery aneurysm BASIC METABOLIC PANEL Routine 01/28/2022 7:59 AM EDT Right internal carotid artery aneurysm documented in this encounter Results * (ABNORMAL) Hemogram (01/28/2022 7:59 AM EDT) White Blood Cell 10.8(H) 4.0 - 9.5 x10(3)/mc L [facility] Red Blood Cell 4.65 4.00 - 5.21 x10(6)/mc L [facility] Hemoglobin 15.4 11.7 - 15.5 g/dL [facility] Hematocrit 45.8 35.7 - 45.8 % [facility] Mean Cell Volume 98.5(H) 82.6 - 94.4 fL [facility] Mean Cell Hemoglobin 33.1(H) 27.1 - 32.0 pg [facility] Mean Cell Hemoglobin Concentration 33.6 31.7 - 35.0 g/dL [facility] Platelet 354 145 - 357 x10(3)/mc L [facility] RDW Standard Deviation 50.1(H) 37.0 - 46.0 fL [facility] RDW coefficient of variation 13.6 11.5 - 14.1 % [facility] Mean Platelet Volume 10.0 7.6 - 12.9 fL [facility] NRBC% auto 0.0 % [facility] NRBC Absolute 0.000 0.000 - 0.000 x10(3)/mc L [facility] Blood 01/28/2022 7:59 AM EDT 01/28/2022 8:17 AM EDT Narrative Resulting Agency Comment Spec In Lab Gricel Stoddard PAINT PREP TECHNICIAN HEMATOLOGY ORDERABLE S [facility] [place] [address] * (ABNORMAL) Basic Metabolic Panel (non-fasting) (01/28/2022 7:59 AM EDT) Glucose 116 65 - 199 mg/dL [facility] Comment:Diabetes: >=200 mg/d L plus symptoms Blood Urea Nitrogen 18 8 - 18 mg/dL [facility] Creatinine 0.84 0.70 - 1.20 mg/dL [facility] Sodium 142 135 - 145 mmol/L [facility] Potassium 4.1 3.5 - 5.0 mmol/L [facility] Comment: Please note: ??Patients with WBC >100,000 may have falsely elevated Potassium levels. ??For accurate Potassium quantification in these patients send serum separator tube (gold top) for subsequent determinations. ??Contact the Clinical Chemistry Laboratory if there are any questions. Chloride 109(H) 98 - 107 mmol/L [facility] Carbon Dioxide 21(L) 22 - 31 mmol/L [facility] Anion Gap 12 5 - 15 mmol/L [facility] Calcium 9.0 8.5 - 10.5 mg/dL [facility] Est Glomerular Filtration Rate 84 >=60 mL/min/1. 73 m?? [facility] Comment: This patient? s estimated [...] Comment Spec In Lab Gricel Griffin Stoddard PAINT PREP TECHNICIAN CHEMISTRY ORDERABLES Performing Organization Address [facility] Co de Phone Number [facility] [place] [address] * Prothrombin Time (01/28/2022 7:59 AM EDT) Prothrombin Time 10.3 9.4 - 12.5 sec [facility] International Normalization Ratio 0.9 [facility] Comment: An INR <2.0 indicates [...] Comment Spec In Lab Gricel L Stoddard PAINT PREP TECHNICIAN HEMATOLOGY ORDERABLE S Performing Organization Address [facility] Co de Phone Number [facility] [place] [address] * APTT (01/28/2022 7:59 AM EDT) Partial Thromboplastin Time 35 25 - 37 sec [facility] Comment: The PTT is NOT appropriate for heparin monitoring. Use the Anti-Xa level for heparin monitoring (HEP UFH) or LMWH monitoring (HEP LMW). A PTT less than 37 seconds generally indicates adequate hemostasis. Blood 01/28/2022 7:59 AM EDT 01/28/2022 8:17 AM EDT Narrative Resulting Agency Comment Spec In Lab Gricel Stoddard PAINT PREP TECHNICIAN HEMATOLOGY ORDERABLE S Performing Organization Address [facility] Co de Phone Number [facility] [place] [address] * P2Y12 Antiplatelet ([facility] (01/28/2022 7:59 AM EDT) P2Y12 [address] [facility] Comment: Test results are [...] with a baseline, pre-treatment determination. Blood 01/28/2022 7:59 AM EDT 01/28/2022 8:28 AM EDT Narrative Resulting Agency Comment Spec In Lab Gricel Stoddard PAINT PREP TECHNICIAN HEMATOLOGY ORDERABLE S Performing Organization Address [facility]/ZIP Co de Phone Number [facility] [place] [address] documented in this encounter Visit Diagnoses Diagnosis Cerebral aneurysm, nonruptured Right internal carotid artery aneurysm Cerebral aneurysm, nonruptured documented in this encounter Care Teams Hand Molder Meat Relationship Specialty Start Date End Date Odalys Escobar APRN [address] [place] [address] PCP - General Family Medicine 11/26/20 02/22/23 documented as of this encounter
--- OUTSIDE RECORDS SUMMARY | 2024-07-30 16:34 | XMS_ITS | Encounter Summary ---
Author Organization [facility] [place] [address] Care Team Providers Care Residential Life Director Name Role Phone Malgorzata Orellana APRN Primary Care Provider Encounter Details Date Type Department Care Team (Late st Contact Info) Description 05/08/2020 Orders Only [place] [address] Antoni Jones MD [facility] [address] [place] [address] Hyperthyroidism Social History Tobacco Use Types Packs/Day Years Used Date Smoking Tobacco: Every Day Cigarettes Smokeless Tobacco: Never Sex and Gender Information Value Date Recorded Sex Assigned at Female 12/12/2021 11:37 AM EST Gender Identity Female 11/16/2020 12:55 PM EST Sexual Orientation Straight 02/09/2022 11 :36 AM EDT documented as of this encounter Plan of Treatment Upcoming Encounters Date Type Department Care Team (Late st Contact Info) Description 01/24/2025 9:00 AM EDT TH Visit (TeleHealth) [place] [address] Gricel Stoddard APRN [facility] [place] [address] documented as of this encounter Visit Diagnoses Diagnosis Hyperthyroidism Thyrotoxicosis without mention of goiter or other cause, without mention of thyrotoxic crisis or storm documented in this encounter Care Teams Residential Life Director Relationship Specialty Start Date End Date Malgorzata Orellana, ULTRASONIC CLEANER [address] [place] [address] PCP - General Internal Medicine 03/22/19 10/13/20 documented as of this encounter
--- OUTSIDE RECORDS SUMMARY | 2024-07-30 16:34 | XMS_ITS | Encounter Summary ---
[place] [address] Care Team Providers Care Photography Manager Name Role Phone Anthony Burns MD Primary Care Provider [phone] Reason for Visit * Reason Comments Verrucous Vulgaris Encounter Details Date Type Department Care Team (Late st Contact Info) Description 10/25/2011 3:00 PM EST Office Visit Dermatology [address] [facility] [address] [place] [address] Josh Mace MD [address] [facility] [place] [address] Verruca vulgaris (Primary Dx) Social History Tobacco Use Types Packs/Day Years Used Date Smoking Tobacco: Never Assessed Sex and Gender Information Value Date Recorded Sex Assigned at Female 12/12/2021 11:37 AM EST Gender Identity Female 11/16/2020 12:55 PM EST Sexual Orientation Straight 02/09/2022 11 :36 AM EDT documented as of this encounter Progress Notes * Josh Mace MD - 10/25/2011 3:51 PM EST Problem Verruca vulgaris, left second finger. Franchesca is a 35-year-old woman who is referred today by Sun Kaur for a painful verruca on the left second finger dorsally. It has been treated with epfs-jxa-bjvjkhj treatments without success and LN2 treatment. It [...] TH Visit (TeleHealth) [place] [address] Gricel Stoddard APRN [facility] [place] [address] documented as of this encounter Visit Diagnoses Diagnosis Verruca vulgaris- Primary Viral warts, unspecified documented in this encounter Care Teams Photography Manager Relationship Specialty Start Date End Date Anthony Burns MD [address] [place] [address] PCP - General 10/25/11 03/21/19 documented as of this encounter
--- OUTSIDE RECORDS SUMMARY | 2024-07-30 16:34 | XMS_ITS | Encounter Summary ---
[place] [address] Care Team Providers Care Cable Placer Name Role Phone Malgorzata Orellana APRN Primary Care Provider [phone] Encounter Details Date Type Department Care Team (Late st Contact Info) Description 05/27/2020 Telephone [place] [address] Kaia Paredes, [facility] Social History Tobacco Use Types Packs/Day Years Used Date Smoking Tobacco: Every Day Cigarettes Smokeless Tobacco: Never Sex and Gender Information Value Date Recorded Sex Assigned at Female 12/12/2021 11:37 AM EST Gender Identity Female 11/16/2020 12:55 PM EST Sexual Orientation Straight 02/09/2022 11 :36 AM EDT documented as of this encounter Miscellaneous Notes * Telephone Encounter - Kaia Paredes, [facility] - 05/27/2020 10:36 AM EDT GAP Chaser Apprentice Pre-Telemedicine Phone Note [x] Patient not reached [] Patient reached and the following information was reviewed/obtained per protocol: [] Confirmed patient name and date of [] Confirmed telemedicine kandi (Vidyo and Virtual Visit) is downloaded and functioning [] Confirmed location of patient - TeleVisit is taking place in [] [place] [] [place] [] If not on [facility], working on signing up for my[facility] [] Confirmed has completed any pre-visit questionnaires [] If has not received required pre-visit questionnaires, send via myDH [] Reviewed patient medications [] Documented self-reported vitals: [] Weight: [] Height [] pulse recorded: [] Other information or concerns documented in this encounter Plan of Treatment Upcoming Encounters Date Type Department Care Team (Late st Contact Info) Description 01/24/2025 9:00 AM EDT TH Visit (TeleHealth) [place] [address] Gricel Stoddard APRN [facility] [place] [address] documented as of this encounter Visit Diagnoses Not on filedocumented in this encounter Care Teams Cable Placer Relationship Specialty Start Date End Date Malgorzata Orellana APRN [address] [place] [address] PCP - General Internal Medicine 03/22/19 10/13/20 documented as of this encounter
--- OUTSIDE RECORDS SUMMARY | 2024-07-30 16:34 | XMS_ITS | Encounter Summary ---
Author Organization [facility] [place] [address] Care Team Providers Care Profiler Name Role Phone Odalys Escobar APRN Primary Care Provider [phone] Reason for Visit * Reason Comments Medication Refill Encounter Details Date Type Department Care Team (Late st Contact Info) Description 12/28/2020 Ref[place] [address] Antoni Jones MD [facility] [place] [address] Subclinical hyperthyroidism Social History Tobacco Use Types Packs/Day Years [...] AM EDT TH Visit (TeleHealth) [place] [address] Gricel Stoddard APRN [facility] [place] [address] documented as of this encounter Visit Diagnoses Diagnosis Subclinical hyperthyroidism Thyrotoxicosis without mention of goiter or other cause, without mention of thyrotoxic crisis or storm documented in this encounter Care Teams Profiler Relationship Specialty Start Date End Date Odalys Escobar, TOSHIA [address] [place] [address] PCP - General Family Medicine 11/26/20 02/22/23 documented as of this encounter
--- OUTSIDE RECORDS SUMMARY | 2024-07-30 16:34 | XMS_ITS | Encounter Summary ---
Author Organization [facility] [place] [address] Care Team Providers Care Account Retention Representative Name Role Phone Malgorzata Orellana APRN Primary Care Provider [phone] Reason for Visit * Consultation (Routine) - Closed Specialty Diagnoses / Procedures Referred By Jennifer t Referred To Contact Endocrinology Diagnoses LOW TSH Malgorzata Orellana APRN [address] [place] [address] [facility] Endocrinology [address] [place] [phone] Referral ID Status Reason Start Date Expiration Date V isits Requested Visits Authorized [id number] Closed Consult, Test & Treat Connection Center 03/22/2019 03/21/2020 1 1 Encounter Details Date Type Department Care Team (Late st Contact Info) Description 06/03/2019 2:30 PM EDT Office [place] [address] Mo Salinas MD [facility] [place] [address] Ashly Lucas, [facility] [place] [address] Hyperthyroidism Social History Tobacco Use Types Packs/Day [...] documented in this encounter Progress Notes * Ashly Lucas, - 06/03/2019 2:30 PM EDT Images from the original note were not included. ENDOCRINOLOGY CONSULT OUTPATIENT NOTE [facility] Name: Franchesca Dickson Date of Consultation: 06/03/19 [...] a complication of various symptoms. Her symptoms includesevere diarrhea, which is being worked up by GI. She also reports worsening of her underlying depression and anxiety, with difficultly controlling her anger. She has noted extreme hot flashes and waking during the night drenched in sweat. She reports [...] Free T4 1.90 Outside thyroid ultrasound at [facility]: Assessment: Ms. Dickson is a 43 year [...] She has never been treated with anti-thyroid medications or radioactive iodine. She tells me that the issue has historically resolved on its on. Five months ago she developed a multitude of symptoms including diarrhea, palpitations, tremor, hotflashes, general fatigue and worsening of her underlying psychiatric disorders. She reports that she underwent thyroid testing with her PCP, these tests revealed a slightly suppressed TSH with a normal free T4 (outlined above). As part of this work up she underwent thyroid ultrasound which revealeda 0.7 cm nodule in the left lobe, outlined in the scanned report copied above. For these reasons weare seeing her today. Based on her history, she most likely is suffering from underlying Graves disease with an incidentally found thyroid nodule. On our ultrasound today. her thyroid is slightly enlarged with general heterogeneity throughout, we also note the subcentimeter nodule in the left lobe, which does not appearparticularly hypervascular. At this point, we would recommend [...] Diabetes and Metabolism Fellow 06/03/19 3:32 PM * Ashly Lucas DO - 06/03/2019 2:30 PM EDT ENDOCRINOLOGY THYROID ULTRASOUND REPORT Patient:Franchesca Dickson, [id number] Date of exam: 06/03/2019 Indication: thyroid nodule [...] and Metabolism Fellow 06/03/2019 3:06 PM Pager #[phone] * Mo Salinas MD - 06/03/2019 2:30 PM [...] is under 2 cm in all dimensions. Ianswered all patient questions. I was involved in all medical decision making and agree with this plan. documented in this encounter Plan of Treatment Upcoming Encounters Date Type Department Care Team (Late st Contact Info) Description 01/24/2025 9:00 AM EDT TH Visit (TeleHealth) [place] [address] Gricel Stoddard APRN [facility] [place] [address] documented as of this encounter Procedures Procedure Name Priority Date/Time Associated Diagnosis Comments THYROID STIMULATING IMMUNOGLOBULINS Routine 06/03/2019 4:15 PM EDT Hyperthyroidism T3 TOTAL Routine 06/03/2019 4:15 PM EDT Hyperthyroidism TSH Routine 06/03/2019 4:15 PM EDT Hyperthyroidism T4, FREE Routine 06/03/2019 4:15 PM EDT Hyperthyroidism documented in this encounter Results * Thyroid Stimulating Immunoglobulins (06/03/2019 4:15 PM EDT) Thyroid Stimulating Immunoglobulin <0.10 <=0.55 IU/L [facility] Blood specimen (specimen) 06/03/2019 4:15 PM EDT 06/04/2019 6:48 AM EDT Narrative Resulting Agency Comment Spec In Lab Mo Salinas MD IMMUNOLOGY ORDERABLE S Performing Organization Address [facility] Co de Phone Number [facility] [place] [address] * T4, free (06/03/2019 4:15 PM EDT) Free T4 1.26 0.93 - 1.70 ng/dL [facility] Blood specimen (specimen) 06/03/2019 4:15 PM EDT 06/03/2019 4:19 PM EDT Narrative Resulting Agency Comment Spec In Lab Mo Salinas MD CHEMISTRY ORDERABLES Performing Organization Address [facility]/State/ZIP Co de Phone Number [facility] [place] [address] * T3 Total (06/03/2019 4:15 PM EDT) T3 Total 127 75 - 170 ng/dL [facility] Blood specimen (specimen) 06/03/2019 4:15 PM EDT 06/03/2019 4:19 PM EDT Narrative Resulting Agency Comment Spec In Lab Mo Salinas MD CHEMISTRY ORDERABLES Performing Organization Address City/[facility]/ZIP Co de Phone Number [facility] [place] [address] * (ABNORMAL) TSH (06/03/2019 4:15 PM EDT) Thyroid Stimulating Hormone 0.14(L) 0.27 - 4.20 mcIU/mL [facility] Blood specimen (specimen) 06/03/2019 4:15 PM EDT 06/03/2019 4:19 PM EDT Narrative Resulting Agency Comment Spec In Lab Mo Salinas MD CHEMISTRY ORDERABLES Performing Organization Address [facility] Co de Phone Number [facility] [place] [address] documented in this encounter Visit Diagnoses Diagnosis Hyperthyroidism Thyrotoxicosis without mention of goiter or other cause, without mention of thyrotoxic crisis or storm documented in this encounter Care Teams Account Retention Representative Relationship Specialty Start Date End Date Malgorzata Orellana APRN [address] [place] [address] PCP - General Internal Medicine 03/22/19 10/13/20 documented as of this encounter
--- OUTSIDE RECORDS SUMMARY | 2024-07-30 16:34 | XMS_ITS | Encounter Summary ---
Author Organization [facility] Address [address] [place] [address] Care Team Providers Care Sales Market Leader Name Role Phone Odalys Escobar Primary Care Provider [phone] Reason for Visit * Reason Comments Hyperthyroidism NPV * Referral (Routine) - Receiving Office to Obtain Authorization Specialty Diagnoses / Procedures [facility] Referred To Contact Endocrinology Diagnoses Hyperthyroidism, subclinical Odalys Escobar FNP [address] [place] [address] [facility] Endocrinology [address] [place] [address] Referral ID Status Reason Start Date Expiration Date Visits Requested Visits Authorized [id number] Receiving Office to Obtain Authorization 1 1 Encounter Details Date Type Department Care Team (Latest Contact Info) Description 07/07/2022 9:20 EDT Office Visit [facility] [place] [address] Ros Cornelius MD PhD [address] [place] [address] [address] [place] [address] Subclinical hyperthyroidism (Primary Dx) Social History Tobacco Use Types Packs/Day Years Used Date Smoking Tobacco: Every Day Smokeless Tobacco: Current Interpersonal Safety Answer Date Record ed Physically Hurt Never 06/14/2020 Verbally Threaten Not on file 06/14/2020 Sex and Gender Information Value Date Recorded Sex Assigned at Female 03/07/2022 10:17 EDT Gender Identity Female 03/07/2022 10:17 EDT Sexual Orientation Not on file documented as of this encounter Last Filed Vital Signs Vital Sign Reading Time Taken Comments Blood Pressure 115/71 07/07/2022927 EDT Pulse 77 07/07/2022927 EDT Temperature - - Respiratory Rate - - Oxygen Saturation - - Inhaled Oxygen Concentration - - Weight 68 kg (150 lb) 07/07/2022 09 EDT Height 151 cm (4' 11.45) 07/07/2022 09 EDT Body Mass Index 29.84 07/07/2022927 EDT documented in this encounter Functional Status Functional Status Response Date of Assess ment Because of a physical, menta l, or emotional condition, does this person have difficulty doing errands alone such as visiting a doctor's office or shopping? Yes 07/07/2022 Cognitive Status Response Date of Assessm ent Because of a physical, menta l, or emotional condition, does this person have serious difficulty concentrating, remembering, or making decisions? Yes 07/07/2022 documented as of this encounter Patient Instructions * Patient Instructions* Ros Cornelius MD PhD - 07/07/2022 9:20 EDT You have a diffuse goiter-your gland is about 1.9x4 cm and usually is about 1.5x3.5 cm So what causes a goiter-simple (not enough iodine as a child in diet), smoldering Graves', Toby's, colloid nodular goiter-you do not have that Graves' disease is where an antibody is made that causes the thyroid to enlarge (goiter) and becomeover-active (hyperthyroidism). Symptoms of hyperthyroidism include unintentional weight loss, increased anxiety, feeling sweaty and hot, palpitations of the heart and tremulousness. Treatments include medication like Methimazole (MMI) or Propylthiouracil (PTU), radioactive iodine or surgical removal of the gland. If medication is chosen, generally people take this for 1.5-2 years and then it is withdrawn to seeif the disease will stay in remission. Toby's thyroiditis is where the body makes antibodies that interfere with thyroid hormone production. The gland enlarges (goiter), often is lumpy, bumpy and can fail to make enough thyroid hormone (under-active gland or hypothyroidism). Hypothyroid symptoms can be a little non-specific but include weight gain, fatigue, constipation, heavier menses and feeling cold. Treatment is thyroid medication. documented in this encounter Progress Notes * Aliyah Toribio MA - 07/07/2022 0920 EDT A venous blood collection was performed today via venipuncture on this patient. I was supervised by Meera Delacruz DO who was present and immediately available in the office suite. ALIYAH TORIBIO MA 07/07/2022 10:30 * Ros Cornelius MD PhD - 07/07/2022 0920 EDT Images from the original note were not included. Endocrinology Initial Thyroid Evaluation CHIEF COMPLAINT: Chief Complaint Patient presents with ??? Hyperthyroidism NPV HPI: Franchesca Dickson is a 46 y.o. female who is seen in a eubr-et-lwwy visit for: ICD-10-CM ICD-9-CM 1. Subclinical hyperthyroidism E05.90 242.90 HPI Ms. Dickson is sent here as she went to [facility] which is close to her home area, and was told that she had fluctuating thyroid function and Graves' and Toby's. She had the impression that she could not be helped, and is here seeking [...] aspirin, clopidogrel, difluprednate, methylphenidate hcl, methylphenidate hcl, methylphenidate hcl, olanzapine, pantoprazole, pregabalin, topiramate, and vilazodone. ALLERGIES Shellfish containing products, Erythromycin, Sulfa (sulfonamide antibiotics), Sulfur, and Tree nut REVIEW OF SYSTEMS: JAKI Has dysphagia, no hoarseness, both diarrhea and constip,has muscle cramping. Appetite and weight are stable. Has chest pain, SOB and palpitations. OBJECTIVE: Vitals: BP 115/71 Pulse 77 Ht (!) 151 cm (59.45) Wt 68 kg (150 lb) BMI 29.84 kg/m?? BMI:Body mass index is 29.84 kg/m??. Physical Exam [...] for: TSH Lab Results Component Value Date [id number] 145 06/26/2020 Lab Results Component Value Date THYROIDAB <28 06/26/2020 ASSESSMENT: We discussed that patients do not have both Graves' and Toby's at the same time. As the thyroid ABs are less specific for Toby's than Graves' many with Graves' can have positiveTPO ABs in the background. The designation of Graves' or Toby's depends on Thyroid function with the former being a lower TSH and the latter a higher TSH. [place] can lead to either hyper- or hypothyroidism being related to iodine in the periodic table. Some people can have Graves' hyperthyroidism and later Toby's based hypothyroidism are both are autoimmune thyroid diseases. The type one has depends [...] euthyroid if ABs are at that time notactive. We discussed that if she has fluctuating [...] gland function. On exam she has a goiter or diffuse enlargement which could be from Graves' [...] this encounter Plan of Treatment Not on file documented as of this encounter Procedures Procedure Name Priority Date/Time Associated Diagnosis Comments THYROTROPIN RECEPTOR ANTIBODY Routine 07/07/2022 10:30 EDT Subclinical hyperthyroidism THYROPEROXIDASE ANTIBODY Routine 07/07/2022 10:30 EDT Subclinical hyperthyroidism ANTI THYROGLOBULIN Routine 07/07/2022 10 :30 EDT Subclinical hyperthyroidism T3, TOTAL Routine 07/07/2022 10:30 EDT Subclinical hyperthyroidism TSH Routine 07/07/2022 10:30 EDT Subclinical hyperthyroidism T4 FREE Routine 07/07/2022 10:30 EDT Subclinical hyperthyroidism documented in this encounter Results * POC ENDOCRINE US THYROID (09/01/2022 9:26 EDT) Narrative 09/01/2022 9:26 EDT This is a non-reportable exam. Ros Cornelius MD PhD IMG US POC ORDERA BLES * ANTI THYROGLOBULIN (07/07/2022 10:30 EDT) Anti-Thyroglob ulin <15 <=60 U/mL 07/07/2022 16:54 EDT [facility] Blood VENOUS BLOOD / Unknown Venipuncture / Unknown 07/07/2022 10:30 EDT 07/07/2022 10:31 EDT Ros Cornelius MD PhD CHEMISTRY & BLOOD GAS ORDERABLES [facility] [address] [place] [address] * THYROPEROXIDASE ANTIBODY (07/07/2022 10:30 EDT) Thyroperoxidase Ab 29 <=60 U/mL 2021 16:57 EDT [facility] Blood VENOUS BLOOD / Unknown Venipuncture / Unknown 07/07/2022 10:30 EDT 07/07/2022 10:31 EDT Ros Cornelius MD PhD CHEMISTRY & BLOOD GAS ORDERABLES Performing Organization Address City/[facility] Co de Phone Number [facility] [address] [place] [address] * THYROTROPIN RECEPTOR ANTIBODY (07/07/2022 10:30 EDT) Thyrotropin Receptor Ab, S <1.10 0.00 - 1.75 IU/L 07/08/2022 16:51 EDT [facility] [employer] Comment: ADDITIONAL INFORMATION At a decision limit of 1.75 IU/L, this assay has 97% sensitivity and 99% specificity for detection of Graves' disease. In healthy individuals and in patients with thyroid disease without diagnosis of Graves' disease, the upper limit of anti-TSHR values are 1.22 IU/L and 1.58 IU/L, respectively (97.5th percentiles). Test Performed by: [facility] [place] [address] Private Tutors And Teachers: Kodak Collins M.D. Ph.D.; CLIA# [id number] Blood VENOUS BLOOD / Unknown Venipuncture / Unknown 07/07/2022 10:30 EDT 07/07/2022 10:31 EDT Ros Cornelius MD PhD CHEMISTRY & BLOOD GAS ORDERABLES Performing Organization Address City/[facility] Co de Phone Number [facility] [address] [place] [address] * T3, TOTAL (07/07/2022 10:30 EDT) T3, Total 116 97 - 169 ng/dL 07/07/2022 15:11 EDT [facility] Blood VENOUS BLOOD / Unknown Venipuncture / Unknown 07/07/2022 10:30 EDT 07/07/2022 10:31 EDT Ros Cornelius MD PhD CHEMISTRY & BLOOD GAS ORDERABLES Performing Organization Address [facility]/ZIP Co de Phone Number [facility] [address] [place] [address] * T4 FREE (07/07/2022 10:30 EDT) T4, Free 1.5 0.8 - 2.2 ng/dL 07/07/2022 14:57 EDT [facility] Blood VENOUS BLOOD / Unknown Venipuncture / Unknown 07/07/2022 10:30 EDT 07/07/2022 10:31 EDT Ros Cornelius MD PhD CHEMISTRY & BLOOD GAS ORDERABLES Performing Organization Address [facility] Co de Phone Number [facility] [address] [place] [address] * (ABNORMAL) TSH (07/07/2022 10:30 EDT) TSH 0.10(L) 0.47 - 4.68 mIU/L 07/07/2022 15:11 EDT [facility] Blood VENOUS BLOOD / Unknown Venipuncture / Unknown 07/07/2022 10:30 EDT 07/07/2022 10:31 EDT Narrative [facility] - 07/07/2022 15:11 EDT The results of this assay can be falsely lowered due to the consumption of Biotin. Ros Cornelius MD PhD CHEMISTRY & BLOOD GAS ORDERABLES Performing Organization Address [facility] Co de Phone Number [facility] [address] [place] [address] documented in this encounter Visit Diagnoses Diagnosis Subclinical hyperthyroidism- Primary Thyrotoxicosis without mention of goiter or other cause, without mention of thyrotoxic crisis or storm Subclinical hyperthyroidism Thyrotoxicosis without mention of goiter or other cause, without mention of thyrotoxic crisis or storm documented in this encounter Historical Medications * This list may reflect changes made after this encounter. Medication Sig Dispensed Refills Start Date End Date vilazodone (VIIBRYD) 40 mg tablet Take 40 mg by mouth daily. 06/29/2022 topiramate (TOPAMAX) 100 mg tablet Take 100 mg by mouth at bedtime. 06/10/2022 pregabalin (LYRICA) 150 mg capsule Take by mouth 2 times daily. 06/15/2022 pantoprazole (PROTONIX) 40 mg tablet TAKE 1 TABLET 30 MINUTES BEFORE BREAKFAST AND EVENING MEAL 06/30/2022 OLANZapine (ZYPREXA) 10 mg tablet Take 10 mg by mouth at bedtime. 06/21/2022 methylphenidate HCl (RITALIN;METHYLIN) 10 mg tablet Take 10 mg by mouth daily. 06/14/2022 methylphenidate HCl (RITALIN;METHYLIN) 20 mg tablet Take 20 mg by mouth 3 times daily. 06/11/2022 methylphenidate HCl (RITALIN;METHYLIN) 20 mg tablet Take 20 mg by mouth daily. 12/16/2021 difluprednate 0.05 % drops INSTILL ONE DROP INTO RIGHT EYE FOUR TIMES A DAY 05/06/2022 clopidogreL (PLAVIX) 75 mg tablet Take 75 mg by mouth daily. 04/06/2022 aspirin 325 mg tablet Take 325 mg by mouth daily. 04/06/2022 ALPRAZolam (XANAX) 0.5 mg tablet Take 0.5 mg by mouth daily. 04/19/2022 ALPRAZolam (XANAX) 1 mg tablet Take 1 mg by mouth daily. added in this encounter Care Teams Sales Market Leader Relationship Specialty Start Date End Date Odalys Escobar [place] [place] [address] PCP - General 07/07/22 documented as of this encounter
--- OUTSIDE RECORDS SUMMARY | 2024-07-30 16:34 | XMS_ITS | Encounter Summary ---
Author Organization [facility] Address [address] [place] [address] Care Team Providers Care Program Developer Name Role Phone Odalys Escobar MOISES Primary Care Provider [phone] Encounter Details Date Type Department Care Team (Late st Contact Info) Description 02/28/2024 Lab Requisition [facility] Pathology & Laboratory Medicine - [facility] [address] [place] [address] Outr Resulting Lab, Provider Social History Tobacco Use Types Packs/Day Years Used Date Smoking Tobacco: Every Day Smokeless Tobacco: Current Interpersonal Safety Answer Date Record ed Physically Hurt Never 06/14/2020 Verbally Threaten Not on file 06/14/2020 Sex and Gender Information Value Date Recorded Sex Assigned at Female 03/07/2022 10:17 EDT Gender Identity Female 03/07/2022 10:17 EDT Sexual Orientation Not on file documented as of this encounter Functional Status [...] Yes 07/07/2022 documented as of this encounter Plan of Treatment Not on file documented as of this encounter Procedures Procedure Name Priority Date/Time Associated Diagnosis Comments HIV 1/2 ANTIGEN AND ANTIBODY, 4TH GENERATION Routine 02/27/2024 16:52 EDT documented in this encounter Results * HIV 1/2 ANTIGEN AND ANTIBODY, 4TH GENERATION (02/27/2024 16:52 EDT) HIV 1 and 2 Antibody/p24 Antigen, 4th Generation Negative Negative 02/29/2024 11:10 EDT [facility] Comment:If acute HIV-1 infec tion is suspected in a high risk patient, submit plasma specimen for HIV-1 RNA quantitation test. Blood VENOUS BLOOD / Unknown 02/27/2024 16:52 EDT 02/28/2024 17:40 EDT Narrative [facility] - 02/29/2024 11:10 EDT Fourth Generation assay performed on the [employer] XPT. Provider Outr Resulting Lab IMMUNOLOGY A ND SEROLOGY ORDERABLES [facility] [address] [place] [address] documented in this encounter Visit Diagnoses Not on filedocumented in this encounter Care Teams Program Developer Relationship Specialty Start Date End Date Odalys Escobar FNP [place] [address] PCP - General 07/07/22 documented as of this encounter
--- OUTSIDE RECORDS SUMMARY | 2024-07-30 16:34 | XMS_ITS | Encounter Summary ---
Author [place] [address] Care Team Providers Care Instrument Man Name Role Phone Malgorzata Orellana APRN Primary Care Provider [phone] Encounter Details Date Type Department Care Team (Late st Contact Info) Description 05/11/2020 Telephone [place] [id number] Hawk Armas Social History Tobacco Use Types Packs/Day Years Used Date Smoking Tobacco: Every Day Cigarettes Smokeless Tobacco: Never Sex and Gender Information Value Date Recorded Sex Assigned at Female 12/12/2021 11:37 AM EST Gender Identity Female 11/16/2020 12:55 PM EST Sexual Orientation Straight 02/09/2022 11 :36 AM EDT documented as of this encounter Miscellaneous Notes * Telephone Encounter - Hawk Armas - 05/11/2020 3:08 PM EDT Left message with mother to have patient give us a call back to [facility] a 2 week telehealth f/u Dr. Jones. documented in this encounter Plan of Treatment Upcoming Encounters Date Type Department Care Team (Late st Contact Info) Description 01/24/2025 9:00 AM EDT TH Visit (TeleHealth) [place] [address] Gricel Stoddard APRN [facility] [place] [address] documented as of this encounter Visit Diagnoses Not on filedocumented in this encounter Care Teams Instrument Man Relationship Specialty Start Date End Date Malgorzata Orellana APRN [address] [place] [address] PCP - General Internal Medicine 03/22/19 10/13/20 documented as of this encounter
--- OUTSIDE RECORDS SUMMARY | 2024-07-30 16:34 | XMS_ITS | Encounter Summary ---
Author Organization Formerly [facility] [place] [address] Care Team Providers Care Electronic Health Records Specialist Name Role Phone Unavailable Primary Care Provider Unavailabl e Encounter Details Date Type Department Care Team (Latest Contact Info) Description 10/30/2020 11:00 AM EST TH Visit (TeleHealth) [place] [phone] Antoni Jones MD [facility] [place] [address] Subclinical hyperthyroidism; Nontoxic single thyroid nodule Social History Tobacco Use Types Packs/Day Years Used Date Smoking Tobacco: Every Day Cigarettes Smokeless Tobacco: Never Sex and Gender Information Value Date Recorded Sex Assigned at Female 12/12/2021 11:37 AM EST Gender Identity Female 11/16/2020 12:55 PM EST Sexual Orientation Straight 02/09/2022 11 :36 AM EDT documented as of this encounter Progress Notes * Antoni Jones MD - 10/30/2020 11:00 AM EST Endocrinology Outpatient Follow Up Name:??Franchesca Dickson : 1975 Reason for initial referral: thyroid nodule and suppressed TSH ID: Franchesca Dickson is a 44 year old female with a medical history significant for depression, anxiety, GERD, bipolar disorder, nephrolithiasis, fibromyalgia, cholelithiasis status-post cholecystectomy, ovarian cyst status-post oophorectomy, was initially referred to endocrine clinic in May, for sup ppressed TSH in the setting of thyroid nodule [...] on its own. In early 2018, she developeda myriad of symptoms (severe diarrhea, worsening of her underlying depression and anxiety, with diff icultly controlling her anger, extreme hot flashes and [...] x 0.6 cm with small intranodular calcifications. Assessment Franchesca Dickson is a 44 year old female with a medical history significant for depression, anxiety, GERD, bipolar disorder, nephrolithiasis, fibromyalgia, cholelithiasis status-post cholecystectomy, ovarian cyst status-post oophorectomy, was initially referred to endocrine clinic in May, for sup ppressed TSH in the setting of thyroid nodule [...] on its own. In early 2018, she developeda myriad of symptoms (severe diarrhea, worsening of her underlying depression and anxiety, with diff icultly controlling her anger, extreme hot flashes and [...] patient. D/W Dr. Christian Jones Endocrinology fellow [facility] [place] * Chris Gonzales MD - 10/30/2020 11:00 AM EST I have reviewed Dr Jones's history/note and I agree with the details [...] thyroid nodule), medication management Chris Gonzales MD Dietetic Aidepolice lieutenant patrol Endocrinology Section [facility] documented in this encounter Plan of Treatment Upcoming Encounters Date Type Department Care Team (Late st Contact Info) Description 01/24/2025 9:00 AM EDT TH Visit (TeleHealth) [place] [address] Gricel Stoddard APRN [facility] [place] [address] documented as of this encounter Results * T4, free (11/26/2020 11:52 AM EST) Pathologist [facility] Free T4 1.15 0.93 - 1.70 ng/dL [facility] Blood specimen (specimen) 11/26/2020 11:52 AM EST 11/26/2020 12:24 PM EST Narrative Resulting Agency Comment Spec In Lab Chris Gonzales MD CHEMISTRY ORDERABLE S [facility] [place] [address] * T3 Total (11/26/2020 11:52 AM EST) Pathologist [facility] T3 Total 99 75 - 170 ng/dL [facility] Blood specimen (specimen) 11/26/2020 11:52 AM EST 11/26/2020 12:24 PM EST Narrative Resulting Agency Comment Spec In Lab Chris Gonzales MD CHEMISTRY ORDERABLE S [facility] [place] [address] * TSH (11/26/2020 11:52 AM EST) Pathologist [facility] Thyroid Stimulating Hormone 0.37 0.27 - 4.20 mcIU/mL [facility] Blood specimen (specimen) 11/26/2020 11:52 AM EST 11/26/2020 12:24 PM EST Narrative Resulting Agency Comment Spec In Lab Chris Gonzales MD CHEMISTRY ORDERABLE S Performing Organization Address City/State/[facility] Co de Phone Number [facility] [place] [address] documented in this encounter Visit Diagnoses Diagnosis Subclinical hyperthyroidism Thyrotoxicosis without mention of goiter or other cause, without mention of thyrotoxic crisis or storm Nontoxic single thyroid nodule Nontoxic uninodular goiter documented in this encounter
--- OUTSIDE RECORDS SUMMARY | 2024-07-30 16:34 | XMS_ITS | Encounter Summary ---
[place] [address] Care Team Providers Care Leases And Land Supervisor Name Role Phone Malgorzata Orellana APRN Primary Care Provider Reason for Referral * Diagnostic Test (Routine) - Closed Specialty Diagnoses / Procedures Referred By Contac t Referred To Contact Radiology Diagnoses Hyperthyroidism Procedures NM I-123 Thyroid Imaging w Uptake Radiopharm Admin Ashly Lucas [facility] [place] [address] [place] [address] Referral ID Status Reason Start Date Expiration Date V isits Requested Visits Authorized [id number] Closed Specialty Service Requested 06/14/2019 06/13/2020 1 1 * Diagnostic Test (Routine) - Closed Specialty Diagnoses / Procedures Referred By Contac t Referred To Contact Radiology Diagnoses Hyperthyroidism Procedures NM I-123 Thyroid Imaging w Uptake Ashly Lucas [facility] [place] [address] [place] [address] Referral ID Status Reason Start Date Expiration Date V isits Requested Visits Authorized [id number] Closed Specialty Service Requested 06/14/2019 06/13/2020 1 1 Encounter Details Date Type Department Care Team (Late st Contact Info) Description 06/14/2019 Telephone [place] [phone] Ashly Lucas DO [facility] [place] [address] Social History Tobacco Use Types Packs/Day Years Used Date Smoking Tobacco: Every Day Cigarettes Smokeless Tobacco: Never Sex and Gender Information Value Date Recorded Sex Assigned at Female 12/12/2021 11:37 AM EST Gender Identity Female 11/16/2020 12:55 PM EST Sexual Orientation Straight 02/09/2022 11 :36 AM EDT documented as of this encounter Miscellaneous Notes * Telephone Encounter - Ashly Lucas DO - [...] Notably, her TSI was negative, indicating this is likely not Graves disease, although there is antibody Graves disease so it remains possible. At this juncture, I would recommend I-123 uptake and scan to further delineate the nature of her thyroid disease. Once her scan is complete, we may consider repeat thyroid studies and starting an antithyroid medication. Ashly Lucas DO, PGY6 Endocrinology, Diabetes and Metabolism Fellow 06/14/2019 5:28 PM Pager #[phone] documented in this encounter Plan of Treatment Upcoming Encounters Date Type Department Care Team (Late st Contact Info) Description 01/24/2025 9:00 AM EDT TH Visit (TeleHealth) [place] [address] Gricel Stoddard APRN [facility] [place] [address] documented as of this encounter Results * NM I-123 Thyroid Imaging w Uptake (06/25/2019 1:50 PM EDT) Anatomical Region Laterality Modality Nuclear Medicine Impressions 06/25/2019 4:20 PM EDT Normal thyroid morphology and low end of normal thyroid uptake of 11%. I have personally reviewed the image(s) and the residents interpretation and agree with the findings, Samir Alcantara at 06/25/2019 4:20 PM Thank you for letting us participate in the care of this patient. For questions regarding this report, please contact the number below. ? Electronically signed by: Samir Alcantara, [facility] ([phone]), at 06/25/2019 4:20 PM Narrative 06/25/2019 4:20 PM EDT EXAMINATION: NM I-123 THYROID IMAGING W UPTAKE CLINICAL HISTORY: Hyperthyroidism TSI negative (likely not Graves), nodule on left side during US exam TECHNIQUE: I-123 was administered orally in a dose of 11.2 uCi. Twenty four hours later, probe uptake measurement of the thyroid was obtained. Images of the thyroid were obtained in the anterior and anterior oblique projections using a gamma camera with pinhole collimator. COMPARISON: None FINDINGS: Diffuse tracer uptake within both lobes of the thyroid with no focal hot or cold nodules. 24 hour radioactive iodine uptake is 11.4% (normal 10 - 25%) Procedure Note Samir Alcantara MD - 06/25/2019 EXAMINATION: NM I-123 THYROID IMAGING W UPTAKE CLINICAL HISTORY: Hyperthyroidism TSI negative (likely not Graves), nodule on left side during US exam TECHNIQUE: I-123 was administered orally in a dose of 11.2 uCi. Twentyfour hours later, probe uptake measurement of the thyroid was obtained. Imagesof the thyroid were obtained in the anterior and anterior oblique projectionsusing a gamma camera with pinhole collimator. COMPARISON: None FINDINGS: Diffuse tracer uptake within both lobes of the thyroid with no focal hotor cold nodules. 24 hour radioactive iodine uptake is 11.4% (normal 10 - 25%) IMPRESSION Normal thyroid morphology and low end of normal thyroid uptake of 11%. I have personally reviewed the image(s) and the residents interpretationand agree with the findings, Samir Alcantara at 06/25/2019 4:20 PM Thank you for letting us participate in the care of this patient. Forquestions regarding this report, please contact the number below. Electronically signed by: Samir Alcantara, [facility]([phone]), at 06/25/2019 4:20 PM Mo PEÑA NM ORDERABLES * NM I-123 Thyroid Imaging w Uptake Radiopharm Admin (06/24/2019 1:00 PM EDT) Narrative RAD - 06/24/2019 1:01 PM EDT This exam is auto-finalizing. It is for billing only. See paired order for result. Mo PEÑA NM ORDERABLES [place] documented in this encounter Visit Diagnoses Diagnosis Hyperthyroidism Thyrotoxicosis without mention of goiter or other cause, without mention of thyrotoxic crisis or storm Hyperthyroidism Thyrotoxicosis without mention of goiter or other cause, without mention of thyrotoxic crisis or storm Hyperthyroidism Thyrotoxicosis without mention of goiter or other cause, without mention of thyrotoxic crisis or storm documented in this encounter Care Teams Leases And Land Supervisor Relationship Specialty Start Date End Date Malgorzata Orellana APRN [address] [place] [address] PCP - General Internal Medicine 03/22/19 10/13/20 documented as of this encounter
--- OUTSIDE RECORDS SUMMARY | 2024-07-30 16:34 | XMS_ITS | Encounter Summary ---
[place] [address] Care Team Providers Care Information Systems Director Name Role Phone Unavailable Primary Care Provider Unavailabl e Encounter Details Date Type Department Care Team (Late st Contact Info) Description 10/29/2020 Telephone [place] [address] Mecca Becker, YONY Social History Tobacco Use Types Packs/Day Years Used Date Smoking Tobacco: Every Day Cigarettes Smokeless Tobacco: Never Sex and Gender Information Value Date Recorded Sex Assigned at Female 12/12/2021 11:37 AM EST Gender Identity Female 11/16/2020 12:55 PM EST Sexual Orientation Straight 02/09/2022 11 :36 AM EDT documented as of this encounter Miscellaneous Notes * Telephone Encounter - Mecca Becker RMA - 10/29/2020 4:46 PM EST Franchesca would like TH visit due to bad weather. Sent to secretaries documented in this encounter Plan of Treatment Upcoming Encounters Date Type Department Care Team (Late st Contact Info) Description 01/24/2025 9:00 AM EDT TH Visit (TeleHealth) [place] [address] Gricel Stoddard, SVP CHIEF MARKETING OFFICER [facility] [place] [address] documented as of this encounter Visit Diagnoses Not on filedocumented in this encounter
--- OUTSIDE RECORDS SUMMARY | 2024-07-30 16:34 | XMS_ITS | Encounter Summary ---
Author Organization [facility] [place] [address] Care Team Providers Care Cargo Inspector Name Role Phone Malgorzata Orellana APRN Primary Care Provider [phone] Encounter Details Date Type Department Care Team (Late st Contact Info) Description 06/12/2020 Orders [place] [address] Antoni Jones MD [facility] [place] [address] Subclinical hyperthyroidism Social History Tobacco Use Types Packs/Day Years Used Date Smoking Tobacco: Every Day Cigarettes Smokeless Tobacco: Never Sex and Gender Information Value Date Recorded Sex Assigned at Female 12/12/2021 11:37 AM EST Gender Identity Female 11/16/2020 12:55 PM EST Sexual Orientation Straight 02/09/2022 11 :36 AM EDT documented as of this encounter Progress Notes * Antoni Jones MD - 06/12/2020 3:47 PM [...] TFT in 1 month. Labs routed to [facility]. documented in this encounter Plan of Treatment Upcoming Encounters Date Type Department Care Team (Late st Contact Info) Description 01/24/2025 9:00 AM EDT TH Visit (TeleHealth) [place] [address] Gricel Stoddard APRN [facility] [place] [address] documented as of this encounter Visit Diagnoses Diagnosis Subclinical hyperthyroidism Thyrotoxicosis without mention of goiter or other cause, without mention of thyrotoxic crisis or storm documented in this encounter Care Teams Cargo Inspector Relationship Specialty Start Date End Date Malgorzata Orellana APRN [address] [place] [address] PCP - General Internal Medicine 03/22/19 10/13/20 documented as of this encounter
--- OUTSIDE RECORDS SUMMARY | 2024-07-30 16:34 | XMS_ITS | Encounter Summary ---
[place] [address] Care Team Providers Care Protection Agent Name Role Phone Malgorzata Orellana APRN Primary Care Provider [phone] Reason for Referral * Diagnostic Test (Routine) - Closed Specialty Diagnoses / Procedures Referred By Contac t Referred To Contact Radiology Diagnoses Hyperthyroidism Procedures NM I-123 Thyroid Imaging w Uptake Radiopharm Admin Ashly Lucas [facility] [place] [address] [place] [address] Referral ID Status Reason Start Date Expiration Date V isits Requested Visits Authorized [id number] Closed Specialty Service Requested 06/14/2019 06/13/2020 1 1 Reason for Visit * Diagnostic Test (Routine) - Closed Specialty Diagnoses / Procedures Referred By Contac t Referred To Contact Radiology Diagnoses Hyperthyroidism Procedures NM I-123 Thyroid Imaging w Uptake Radiopharm Admin Ashly Lucas [facility] [place] [address] [facility] [place] [address] Referral ID Status Reason Start Date Expiration Date V isits Requested Visits Authorized [id number] Closed Specialty Service Requested 06/14/2019 06/13/2020 1 1 Encounter Details Date Type Department Care Team (Latest Contact Info) Description 06/24/2019 12:19 PM EDT - 06/24/2019 11:59 PM EDT Hospital Encounter [place] [phone] Mo Salinas MD [facility] [place] [address] Hyperthyroidism Discharge Disposition: Home Social History Tobacco Use [...] Take 10 mg by mouth nightly. 05/28/2019 lamoTRIgine (LAMICTAL) 150 mg Tablet Take 200 mg by mouth nightly. 09/05/2018 05/28/2020 lithium (ESKALITH) 450 mg Tablet Sustained Release Take 900 mg by mouth nightly. 08/27/2018 05/28/2020 OLANZapine (ZYPREXA) 10 mg Tablet Take 10 mg by mouth nightly. 2 09/24/2018 05/28/2020 traZODone (DESYREL) 50 mg tablet 04/09/2009 05/28/2020 citalopram (CELEXA) 40 mg tablet 04/09/2009 05/28/2020 omeprazole (PRILOSEC OTC) 20 mg tablet 04/09/2009 10/30/2020 documented as of this encounter Plan of Treatment Upcoming Encounters Date Type Department Care Team (Late st Contact Info) Description 01/24/2025 9:00 AM EDT TH Visit (TeleHealth) [place] [address] Gricel Stoddard APRN [facility] [place] [address] documented as of this encounter Procedures Procedure Name Priority Date/Time Associated Diagnosis Comments NM I-123 THYROID IMAGING W UPTAKE - RADIOPHARM ADMIN Routine 06/24/2019 1:00 PM EDT Hyperthyroidism documented in this encounter Results * NM I-123 Thyroid Imaging w Uptake Radiopharm Admin (06/24/2019 1:00 PM EDT) Narrative RAD - 06/24/2019 1:01 PM EDT This exam is auto-finalizing. It is for billing only. See paired order for result. Mo MARSG NM ORDERABLES [place], [place] documented in this encounter Visit Diagnoses Diagnosis Hyperthyroidism Thyrotoxicosis without mention of goiter or other cause, without mention of thyrotoxic crisis or storm documented in this encounter Administered Medications Inactive Administered Medications - up to 3 most recent administrations Medication Order MAR Action Action Date Dose Rate Site iodine I-123 diagnostic capsule 0.304 mCi 0.304 mCi, Oral, ONCE PRN, 1 dose, Starting on Mon06/24/19 at 1255, Until Mon06/24/19 at 1255, Per Protocol, Routine Given 06/24/2019 12:55 PM EDT 0.304 mCi documented in this encounter Care Teams Protection Agent Relationship Specialty Start Date End Date Malgorzata Orellana APRN [address] [place] [address] PCP - General Internal Medicine 03/22/19 10/13/20 documented as of this encounter
--- OUTSIDE RECORDS SUMMARY | 2024-07-30 16:34 | XMS_ITS | Encounter Summary ---
Author [place] [address] Care Team Providers Care Commercial Sales Manager Name Role Phone Malgorzata Orellana APRN Primary Care Provider [phone] Encounter Details Date Type Department Care Team (Late st Contact Info) Description 07/09/2019 Telephone [place] [address] Chela Linares RN Social History Tobacco Use Types Packs/Day Years Used Date Smoking Tobacco: Every Day Cigarettes Smokeless Tobacco: Never Sex and Gender Information Value Date Recorded Sex Assigned at Female 12/12/2021 11:37 AM EST Gender Identity Female 11/16/2020 12:55 PM EST Sexual Orientation Straight 02/09/2022 11 :36 AM EDT documented as of this encounter Miscellaneous Notes * Telephone Encounter - Chela Lagos RN - 07/09/2019 2:55 PM EDT Playing phone tag with Rosio at [facility]. * Telephone Encounter - Chela Lagos RN - 07/09/2019 11:39 AM EDT Received msg from Rosio, triage nurse at [facility] ([phone]), re questions about pt labs, pt telling her something different than what she sees in [facility]. R/c and had to leave msg for Rosio to r/c. documented in this encounter Plan of Treatment Upcoming Encounters Date Type Department Care Team (Late st Contact Info) Description 01/24/2025 9:00 AM EDT TH Visit (TeleHealth) [place] [address] Gricel Stoddard APRN [facility] [place] [address] documented as of this encounter Visit Diagnoses Not on filedocumented in this encounter Care Teams Commercial Sales Manager Relationship Specialty Start Date End Date Malgorzata Orellana APRN [address] [place] [address] PCP - General Internal Medicine 03/22/19 10/13/20 documented as of this encounter
--- OUTSIDE RECORDS SUMMARY | 2024-07-30 16:34 | XMS_ITS | Clinical Summary ---
Author Organization [facility] Address [address] [place] [address] Care Team Providers Care Technical Support Agent Name Role Phone Odalys Escobar MOISES Primary Care Provider [phone] Allergies Active Allergy Reactions Criticality Noted Date Comments Erythromycin 10/01/2018 Shellfish Containing Products Anaphylaxis High 01/28/2022 Per pt, she has received contrast dye in CT with no adverse reactions Sulfa (Sulfonamide Antibiotics) 07/07/2022 CIS - Hives Sulfur 10/01/2018 Tree Nut Rash 06/03/2019 Medications Medication Sig Dispensed Refills Start Date End Date Status ALPRAZolam (XANAX) 1 mg tablet Take 1 mg by mouth daily. Active ALPRAZolam (XANAX) 0.5 mg tablet Take 0.5 mg by mouth daily. 04/19/2022 Active aspirin 325 mg tablet Take 325 mg by mouth daily. 04/06/2022 Active clopidogreL (PLAVIX) 75 mg tablet Take 75 mg by mouth daily. 04/06/2022 Active difluprednate 0.05 % drops INSTILL ONE DROP INTO RIGHT EYE FOUR TIMES A DAY 05/06/2022 Active methylphenidate HCl (RITALIN;METHYLIN) 20 mg tablet Take 20 mg by mouth daily. 12/16/2021 Active methylphenidate HCl (RITALIN;METHYLIN) 20 mg tablet Take 20 mg by mouth 3 times daily. 06/11/2022 Active methylphenidate HCl (RITALIN;METHYLIN) 10 mg tablet Take 10 mg by mouth daily. 06/14/2022 Active OLANZapine (ZYPREXA) 10 mg tablet Take 10 mg by mouth at bedtime. 06/21/2022 Active pantoprazole (PROTONIX) 40 mg tablet TAKE 1 TABLET 30 MINUTES BEFORE BREAKFAST AND EVENING MEAL 06/30/2022 Active pregabalin (LYRICA) 150 mg capsule Take by mouth 2 times daily. 06/15/2022 Active topiramate (TOPAMAX) 100 mg tablet Take 100 mg by mouth at bedtime. 06/10/2022 Active vilazodone (VIIBRYD) 40 mg tablet Take 40 mg by mouth daily. 06/29/2022 Active Encounters Date Type Department Care Team Description 07/05/2024 Lab Requisition [facility] Pathology & Laboratory Medicine - [address] [address] Emerson Hernandez MD Other fecal abnormalities; Noninfective gastroenteritis and colitis, unspecified from Last 3 Months Medical History Medical [...] 10:17 EDT Sexual Orientation Not on file Obstetrics History Last Filed Vital Signs Vital [...] Date Last Done Comments Pneumococcal Immunization (1 of 2 - PCV) 1982 Hepatitis B Vaccine (1 of 3 - 19+ 3-dose series) 1995 COVID-19 Vaccine (3 - season) 07/14/202411/2020, 03/16/2021 Hepatitis C Screen Completed 11/26/2021 Procedures Procedure Name Priority Date/Time Associated Diagnosis Comments SURGICAL PATHOLOGY Today 07/04/2024 13 :18 EDT Other fecal abnormalities Noninfective gastroenteritis and colitis, unspecified HEPATITIS C AB W REFLEX TO HCV RNA BY PCR Routine 11/26/2021 10:11 EST from Last 3 Months or Most Recently Relevant to Health Maintenance Results * SURGICAL PATHOLOGY (07/04/2024 13:18 EDT) Note to Patient The following pathology results have been interpreted by your pathologist and may be available to you before your health provider has had the opportunity to review them. Please allow time for your provider to receive these results and explore management options, if applicable. 07/09/2024 15:52 [facility] Final Diagnosis A. CECUM, BIOPSY: - Colonic mucosa with no significant histopathologic change. - Negative for features of microscopic colitis. B. COLON, ASCENDING, BIOPSY: - Colonic mucosa with no significant histopathologic change. - Negative for features of microscopic colitis. C. COLON, ASCENDING, POLYPECTOMY: - Colonic mucosa with no significant histopathologic change. - Multiple levels examined. D. COLON, TRANSVERSE, BIOPSY: - Colonic mucosa with no significant histopathologic change. - Negative for features of microscopic colitis. E. COLON, DESCENDING, BIOPSY: - Colonic mucosa with no significant histopathologic change. - Negative for features of microscopic colitis. F. COLON, DESCENDING, POLYPECTOMY: - Tubular adenoma. G. SIGMOID, BIOPSY: - Colonic mucosa with no significant histopathologic change. - Negative for features of microscopic colitis. H. RECTUM, BIOPSY: - Colorectal mucosa with no significant histopathologic change. - Negative for features of microscopic colitis. 07/09/2024 15:52 [facility] Diagnosis Comment The technical component of the specimen processing was performed at the [facility] Pathology Department, [address] [place] [address] (CLIA [id number]). The professional component of the specimen evaluation (slide review and issuing of the final diagnosis) was performed at [facility], [address] [place] [address] (CLIA License Number [id number]). 07/09/2024 15:52 [facility] Attestation By the signature below, the attending physician certifies that they have 1) personally conducted a gross and/or microscopic examination of the described specimen(s), and/or personally interpreted the results of laboratory testing of the described specimen(s), and 2) personally rendered or confirmed the above diagnosis. 07/09/2024 15:52 [facility] at 1552 Clinical History IBS, GERD, chronic diarrhea, functional dyspepsia, elevated fecal calprotectin, abd pain; clinical diagnosis code: K52.9, R19.5 07/09/2024 15:52 [facility] Gross Description A. Received in formalin labelled with proper patient identification (initials A, N) and A. Cecum bx is a single prieto-white tissue (0.7 x 0.1 x 0.1 cm). Submitted intact in A1. B. Received in formalin labelled with proper patient identification (initials A, N) and B. Ascending colon bx is a single prieto tissue (0.4 x 0.2 x 0.1 cm). Submitted intact in B1. C. Received in formalin labelled with proper patient identification (initials A, N) and C. Ascending colon polyp is a single prieto-white tissue (0.1 x 0.1 by less than 0.1 cm). Submitted intact in C1. Please note the specimen may not survive processing. D. Received in formalin labelled with proper patient identification (initials A, N) and D. Transverse colon bx is a single prieto tissue (0.9 x 0.1 x 0.1 cm). Submitted intact in D1. E. Received in formalin labelled with proper patient identification (initials A, N) and E. Descending colon bx is a single prieto tissue (0.3 x 0.2 x 0.1 cm). Submitted intact in E1. F. Received in formalin labelled with proper patient identification (initials A, N) and F. Descending colon polyp are 2 prieto-arias tissues (0.3 x 0.15 x 0.1 cm and 0.1 x 0.1 by less than 0.1 cm). Entirely submitted in F1. Please note the smaller tissue may not survive processing. G. Received in formalin labelled with proper patient identification (initials A, N) and G. Sigmoid colon bx is a single prieto tissue (0.5 x 0.3 x 0.1 cm). Submitted intact in G1. H. Received in formalin labelled with proper patient identification (initials A, N) and H. Rectum bx is a single prieto tissue (0.7 x 0.1 x 0.1 cm). Submitted intact in H1. Suni Hernandez 07/06/2024 9:52 07/09/2024 15:[address] [facility] Performing Lab [facility] 15:[address] [facility] Scanned Images 07/09/2024 15:[address] [facility] Tissue SPECIMEN FROM RECTUM / Unknown 07/04/2024 13:18 EDT 07/05/2024 21:36 EDT Tissue specimen (specimen) ASCENDING COLON STRUCTURE / Unknown 07/04/2024 13:18 EDT 07/05/2024 21:36 EDT Tissue specimen (specimen) POLYP OF COLON / Unknown 07/04/2024 13:18 EDT 07/05/2024 21:36 EDT Tissue specimen (specimen) TRANSVERSE COLON STRUCTURE / Unknown 07/04/2024 13:18 EDT 07/05/2024 21:36 EDT Tissue specimen (specimen) DESCENDING COLON STRUCTURE / Unknown 07/04/2024 13:18 EDT 07/05/2024 21:36 EDT Tissue specimen (specimen) POLYP OF COLON / Unknown 07/04/2024 13:18 EDT 07/05/2024 21:36 EDT Tissue specimen (specimen) SIGMOID COLON STRUCTURE / Unknown 07/04/2024 13:18 EDT 07/05/2024 21:36 EDT Tissue specimen (specimen) SPECIMEN FROM RECTUM / Unknown 07/04/2024 13:18 EDT 07/05/2024 21:36 EDT Emerson Hernandez MD PATHOLOGY ORD ERABLES [facility] [address] [place] [id number] * HEPATITIS C AB W REFLEX TO HCV RNA BY PCR (11/26/2021 10:11 EST) Hep C Antibody Negative Negative 11/29/2021 10:[address] [facility] Blood VENOUS BLOOD / Unknown 11/26/2021 10:11 EST 11/26/2021 21:35 EST Provider Outr Resulting Lab CHEMISTRY & BLOOD GAS ORDERABLES [facility] [address] [place] [address] from Last 3 Months or Most Recently Relevant to Health Maintenance Care Teams Technical Support Agent Relationship Specialty Start Date End Date Odalys Escobar [place] [address] PCP - General 07/07/22
--- OUTSIDE RECORDS SUMMARY | 2024-07-30 16:34 | XMS_ITS | Encounter Summary ---
Author Organization [facility] [place] [address] Care Team Providers Care Health Care Assistant Name Role Phone Odalys Escobar APRN Primary Care Provider Encounter Details Date Type Department Care Team (Late st Contact Info) Description 10/22/2021 Ancillary Procedure Radiology Library at [facility] [place] [phone] Odalys Escobar APRN [address] [place], [place] [address] Social History Tobacco Use Types Packs/Day Years [...] AM EDT TH Visit (TeleHealth) Neurosurgery at [facility] [place] [address] Gricel Stoddard APRN [facility] [place] [address] documented as of this encounter Procedures Procedure Name Priority Date/Time Associated Diagnosis Comments FILM LIBRARY STORAGE ONLY MR HEAD Routine 10/22/2021 12:00 AM EST documented in this encounter Results * Film Library- Storage Only MR Head (10/22/2021 12:00 AM EST) Narrative ROSENDA - 10/29/2021 8:44 AM EST This exam is auto-finalizing. It's purpose is for storage only. Odalys Escobar APRN [facility] FILM LIBRARY ORD ERABLES [place], [place] documented in this encounter Visit Diagnoses Not on filedocumented in this encounter Care Teams Health Care Assistant Relationship Specialty Start Date End Date Odalys Escobar APRN [address] [place] [address] PCP - General Family Medicine 11/26/20 02/22/23 documented as of this encounter
--- OUTSIDE RECORDS SUMMARY | 2024-07-30 16:34 | XMS_ITS | Encounter Summary ---
Author Organization [facility] Address [address] [place] [address] Care Team Providers Care Java Software Engineer Name Role Phone Odalys Escobar MOISES Primary Care Provider [phone] Encounter Details Date Type Department Care Team (Latest Contact Info) Description 07/07/2022 10:00 EDT Ancillary Procedure [facility] Endocrinology - [address] [address] Subclinical hyperthyroidism Social History Tobacco Use Types [...] Procedure Name Priority Date/Time Associated Diagnosis Comments POC ENDOCRINE US THYROID Routine 09/01/2022 9:26 EDT Subclinical hyperthyroidism documented in this encounter Results * POC ENDOCRINE US THYROID (09/01/2022 9:26 EDT) Narrative 09/01/2022 9:26 EDT This is a non-reportable exam. Ros Cornelius MD PhD IMG US POC ORDERA BLES documented in this encounter Visit Diagnoses Diagnosis Subclinical hyperthyroidism Thyrotoxicosis without mention of goiter or other cause, without mention of thyrotoxic crisis or storm documented in this encounter Care Teams Java Software Engineer Relationship Specialty Start Date End Date Odalys Escobar FNP [facility] [place] [address] PCP - General 07/07/22 documented as of this encounter
--- OUTSIDE RECORDS SUMMARY | 2024-07-30 16:34 | XMS_ITS | Encounter Summary ---
[place] [address] Care Team Providers Care Costumer Assistant Name Role Phone Malgorzata Orellana APRN Primary Care Provider [phone] Encounter Details Date Type Department Care Team (Late st Contact Info) Description 04/16/2020 Telephone [place] [phone] Ashly Lucas, [facility] DR ENDOCRINOLOGY [place] [address] Social History Tobacco Use Types Packs/Day Years [...] mg daily and repeat labs [facility]. She was agreeable to this plan. Ashly Lucas DO, PGY6 Endocrinology, Diabetes and Metabolism Fellow 04/16/2020 3:24 PM Pager #[phone] documented in this encounter Plan of Treatment Upcoming Encounters Date Type Department Care Team (Late st Contact Info) Description 01/24/2025 9:00 AM EDT TH Visit (TeleHealth) [place] [address] Gricel Stoddard APRN [facility] [place] [address] documented as of this encounter Visit Diagnoses Diagnosis Hyperthyroidism Thyrotoxicosis without mention of goiter or other cause, without mention of thyrotoxic crisis or storm documented in this encounter Care Teams Costumer Assistant Relationship Specialty Start Date End Date Malgorzata Orellana APRN [address] [place] [address] PCP - General Internal Medicine 03/22/19 10/13/20 documented as of this encounter
--- OUTSIDE RECORDS SUMMARY | 2024-07-30 16:34 | XMS_ITS | Encounter Summary ---
[place] [address] Care Team Providers Care Sr Technical Sales Consultant Name Role Phone Malgorzata Orellana APRN Primary Care Provider Encounter Details Date Type Department Care Team (Late st Contact Info) Description 07/16/2019 Orders Only [place] [phone] Ashly Lucas, [facility] [place] [address] Social History Tobacco Use Types Packs/Day Years [...] AM EDT TH Visit (TeleHealth) [place] [address] Gricel Stoddard APRN [facility] [place] [address] documented as of this encounter Visit Diagnoses Not on filedocumented in this encounter Care Teams Sr Technical Sales Consultant Relationship Specialty Start Date End Date Malgorzata Orellana APRN [address] [place] [address] PCP - General Internal Medicine 03/22/19 10/13/20 documented as of this encounter
--- OUTSIDE RECORDS SUMMARY | 2024-07-30 16:34 | XMS_ITS | Encounter Summary ---
[place] [address] Care Team Providers Care Credit Representative Name Role Phone Malgorzata Orellana APRN Primary Care Provider [phone] Encounter Details Date Type Department Care Team (Late st Contact Info) Description 06/14/2019 Telephone [place] [address] Medardo Gayle RN Social History Tobacco Use Types Packs/Day Years Used Date Smoking Tobacco: Every Day Cigarettes Smokeless Tobacco: Never Sex and Gender Information Value Date Recorded Sex Assigned at Female 12/12/2021 11:37 AM EST Gender Identity Female 11/16/2020 12:55 PM EST Sexual Orientation Straight 02/09/2022 11 :36 AM EDT documented as of this encounter Miscellaneous Notes * Telephone Encounter - Medardo Gayle RN - 06/14/2019 1:34 PM EDT Called pt and left message on home phone. Then called cell phone and spoke to pt. She said she should be home around the time Dr Lucas is hoping to be calling her. * Telephone Encounter - Medardo Gayle RN - [...] AM EDT TH Visit (TeleHealth) [place] [address] [facility] [place] [address] documented as of this encounter Visit Diagnoses Not on filedocumented in this encounter Care Teams Credit Representative Relationship Specialty Start Date End Date Malgorzata Orellana APRN [address] [place] [address] PCP - General Internal Medicine 03/22/19 10/13/20 documented as of this encounter
--- OUTSIDE RECORDS SUMMARY | 2024-07-30 16:34 | XMS_ITS | Encounter Summary ---
Author Organization [facility] [place] [address] Care Team Providers Care Audiovisual Lead Technician Name Role Phone Malgorzata Orellana APRN Primary Care Provider [phone] Encounter Details Date Type Department Care Team (Latest Contact Info) Description 05/28/2020 8:00 AM EDT TH Visit (TeleHealth) [place] [address] Antoni Jones MD [facility] [place] [address] Subclinical hyperthyroidism Social History Tobacco Use Types Packs/Day Years Used Date Smoking Tobacco: Every Day Cigarettes Smokeless Tobacco: Never Sex and Gender Information Value Date Recorded Sex Assigned at Female 12/12/2021 11:37 AM EST Gender Identity Female 11/16/2020 12:55 PM EST Sexual Orientation Straight 02/09/2022 11 :36 AM EDT documented as of this encounter Progress Notes * Antoni Jones MD - 05/28/2020 8:00 AM EDT Images from the original note were not included. ENDOCRINOLOGY OUTPATIENT FOLLOW UP ?? Name: Franchesca Daniel Yessi : 1975 Reason for initial referral: Suppressed TSH, thyroid nodule ?? ID: Franchesca Dickson is a 44 year old female with a medical history significant for depression anxiety, GERD, bipolar disorder, nephrolithiasis, Fibromyalgia (diagnosed last week), cholelithiasis status-post cholecystectomy, ovarian cyst status-post oophorectomy, was initially referred to endocrine clinicin May, for supppressed TSH in the setting [...] Gets together: Not on file ??? Attends tenriism service: Not on file ??? Active member [...] 20 mg tablet Outside thyroid ultrasound at [facility]: Office based Thyroid US from 06/03/19: ?? [...] reports no major improvement of symptoms when she is on antithyroid medication now or in the past. Additionally, she felt the same way when she was off the medication for few weeks recently. She is due for blood work next week. Plan: - TSH, free T4 and total T3 in 1 week. Labs routed to [facility]. - Continue Methimazole 2.5 mg daily. - Further recommendations pending blood work results. ?? Above plan discussed with Franchesca and she understands and agrees with the plan. All questions answered. Thank you for allowing us to provide care for your patient. D/W Dr. Nnamdi Jones Endocrinology fellow [facility] * Cynthia Coto MD - 05/28/2020 8:00 AM EDT I discussed this patient with Dr. Jones. I reviewed the ye portions of the history and physical exam, and reviewed pertinent lab data. I was involved in all medical decision making and agree with this plan. CYNTHIA COTO MD Tubing Drierhuman service worker Section of Endocrinology [facility] documented in this encounter Plan of Treatment Upcoming Encounters Date Type Department Care Team (Late st Contact Info) Description 01/24/2025 9:00 AM EDT TH Visit (TeleHealth) [place] [address] Gricel Stoddard, INFANTRY ASSAULTMAN [facility] [place] [address] documented as of this encounter Visit Diagnoses Diagnosis Subclinical hyperthyroidism Thyrotoxicosis without mention of goiter or other cause, without mention of thyrotoxic crisis or storm documented in this encounter Care Teams Audiovisual Lead Technician Relationship Specialty Start Date End Date Malgorzata Orellana APRN [address] [place] [address] PCP - General Internal Medicine 03/22/19 10/13/20 documented as of this encounter
--- OUTSIDE RECORDS SUMMARY | 2024-07-30 16:34 | XMS_ITS | Encounter Summary ---
[place] [address] Care Team Providers Care Hhas Name Role Phone Malgorzata Orellana APRN Primary Care Provider Encounter Details Date Type Department Care Team (Late st Contact Info) Description 08/21/2019 Telephone [place] [phone] Ashly Lucas, [facility] [place] [address] Social History Tobacco Use Types Packs/Day Years [...] AM EDT TH Visit (TeleHealth) [place] [phone] Gricel Stoddard APRN [facility] [place] [address] documented as of this encounter Visit Diagnoses Diagnosis Medication side effect Unspecified adverse effect of unspecified drug, medicinal and biological substance documented in this encounter Care Teams Hhas Relationship Specialty Start Date End Date Malgorzata Orellana APRN [address] [place] [address] PCP - General Internal Medicine 03/22/19 10/13/20 documented as of this encounter
--- OUTSIDE RECORDS SUMMARY | 2024-07-30 16:34 | XMS_ITS | Encounter Summary ---
[place] [address] Care Team Providers Care Smoking Pipe Driller And Threader Name Role Phone Malgorzata Orellana APRN Primary Care Provider [phone] Encounter Details Date Type Department Care Team (Late st Contact Info) Description 01/17/2020 Orders [place] [address] Ashly Lucas, [facility] [place] [address] Social History Tobacco Use Types Packs/Day Years [...] AM EDT TH Visit (TeleHealth) [place] [address] Gricel Stoddard APRN [facility] [place] [address] documented as of this encounter Visit Diagnoses Not on filedocumented in this encounter Care Teams Smoking Pipe Driller And Threader Relationship Specialty Start Date End Date Malgorzata Orellana APRN [address] [place] [address] PCP - General Internal Medicine 03/22/19 10/13/20 documented as of this encounter
--- OUTSIDE RECORDS SUMMARY | 2024-07-30 16:34 | XMS_ITS | Encounter Summary ---
Author [place] [address] Care Team Providers Care Office Support Associate Name Role Phone Odalys Escobar APRN Primary Care Provider [phone] Encounter Details Date Type Department Care Team (Late st Contact Info) Description 03/24/2021 Telephone [place] [address] Nisha Hawk Social History Tobacco Use Types Packs/Day Years [...] AM EDT TH Visit (TeleHealth) [place] [address] Gricel Stoddard APRN [facility] [place] [address] documented as of this encounter Visit Diagnoses Not on filedocumented in this encounter Care Teams Office Support Associate Relationship Specialty Start Date End Date Odalys Escobar, SILK SCREEN REPAIRER [address] [place] [address] PCP - General Family Medicine 11/26/20 02/22/23 documented as of this encounter
--- OUTSIDE RECORDS SUMMARY | 2024-07-30 16:34 | XMS_ITS | Encounter Summary ---
[place] [address] Care Team Providers Care Naval Engineer Name Role Phone Malgorzata rOellana APRN Primary Care Provider [phone] Encounter Details Date Type Department Care Team (Late st Contact Info) Description 10/30/2019 Orders [place] [address] Ashly Lucas, [facility] [place] [address] Hyperthyroidism Social History Tobacco Use Types Packs/Day [...] EDT TH Visit (TeleHealth) [place] [address] Gricel Stoddard APRN [facility] [place] [address] documented as of this encounter Visit Diagnoses Diagnosis Hyperthyroidism Thyrotoxicosis without mention of goiter or other cause, without mention of thyrotoxic crisis or storm documented in this encounter Care Teams Naval Engineer Relationship Specialty Start Date End Date Malgorzata Orellana, YOKE SETTER [address] [place] [address] PCP - General Internal Medicine 03/22/19 10/13/20 documented as of this encounter
--- OUTSIDE RECORDS SUMMARY | 2024-07-30 16:34 | XMS_ITS | Encounter Summary ---
[place] [address] Care Team Providers Care Interior Design Instructor Name Role Phone Malgorzata Orellana APRN Primary Care Provider [phone] Encounter Details Date Type Department Care Team (Late st Contact Info) Description 05/05/2020 Telephone [place] [phone] Ashly Lucas, [facility] [place] [address] Social History Tobacco Use Types Packs/Day Years Used Date Smoking Tobacco: Every Day Cigarettes Smokeless Tobacco: Never Sex and Gender Information Value Date Recorded Sex Assigned at Female 12/12/2021 11:37 AM EST Gender Identity Female 11/16/2020 12:55 PM EST Sexual Orientation Straight 02/09/2022 11 :36 AM EDT documented as of this encounter Miscellaneous Notes * Telephone Encounter - Ashly Lucas DO - 05/05/2020 12:53 PM EDT Endocrinology Follow up Call Patient taken off of MMI 04/16/2020 based on TSH above the normal limits. She has developed symptoms of diarrhea and palpitations and her repeat TSH 0.35 uIU/mL (reference range 0.36-3.74). I recommended restarting Methimazole 2.5 mg daily now and repeating TSH in 4 weeks. Lab order placed and sent to [facility]. Ashly Lucas DO, PGY6 Endocrinology, Diabetes and Metabolism Fellow 05/05/2020 12:54 PM Pager #[phone] documented in this encounter Plan of Treatment Upcoming Encounters Date Type Department Care Team (Late st Contact Info) Description 01/24/2025 9:00 AM EDT TH Visit (TeleHealth) [place] [address] Gricel Stoddard APRN [facility] [place] [address] documented as of this encounter Visit Diagnoses Diagnosis Hyperthyroidism Thyrotoxicosis without mention of goiter or other cause, without mention of thyrotoxic crisis or storm documented in this encounter Care Teams Interior Design Instructor Relationship Specialty Start Date End Date Malgorzata Orellana APRN [address] [place] [address] PCP - General Internal Medicine 03/22/19 10/13/20 documented as of this encounter
--- OUTSIDE RECORDS SUMMARY | 2024-07-30 16:34 | XMS_ITS | Encounter Summary ---
Author Organization [facility] Address [address] [place] [address] Care Team Providers Care Co Supervisor Grounds And Landscape Name Role Phone Odalys Escobar MOISES Primary Care Provider [phone] Reason for Visit * Reason Onset Date Comments Abnormal Lab 07/08/2022 Results 07/08/2022 Encounter Details Date Type Department Care Team (Late st Contact Info) Description 07/08/2022 Telephone [facility] Endocrinology - [address] [address] Ros Cornelius MD PhD [address] [facility] [address] [place] [phone] Abnormal Lab; Results Social History Tobacco Use Types Packs/Day Years [...] Yes 07/07/2022 documented as of this encounter Miscellaneous Notes * Telephone Encounter - Aubree Finch - 07/21/2022 1343 EDT Pt calling to follow-up on Dr Cornelius's note below from My Chart message. Please call to discuss. * Telephone Encounter - Ros Cornelius MD PhD - 07/08/2022 0854 EDT Pt called that TSH is sl low at 0.1 with normal FT4 and TT3, neg Toby's AB, TSH rec AB pending. Await that to discuss therapy. DR. Cornelius documented in this encounter Plan of Treatment Not on file documented as of this encounter Visit Diagnoses Not on filedocumented in this encounter Care Teams Co Supervisor Grounds And Landscape Relationship Specialty Start Date End Date Odalys Escobar FNP Jez [facility] [place] [address] PCP - General 07/07/22 documented as of this encounter
--- OUTSIDE RECORDS SUMMARY | 2024-07-30 16:34 | XMS_ITS | Encounter Summary ---
Author Organization [facility] [address] [facility] [address] Care Team Providers Care Biodiesel Product Manager Name Role Phone Luz Odalys TOSHIA Primary Care Provider [phone] Encounter Details Date Type Department Care Team (Latest Contact Info) Description 11/26/2020 10:30 AM EST Office [place] [address] Antoni Jones MD [facility] [place] [address] Subclinical hyperthyroidism Social History Tobacco Use Types [...] EST documented in this encounter Progress Notes * Antoni Jones MD - 11/26/2020 10:30 AM [...] medication and the issue reportedly subsided on its own.??In mar, 2019, she developed a myriad of symptoms (severe diarrhea, worsening of her underlying depression and anxiety, with difficultly controlling her anger,??extreme hot flashes and wakingup at??night drenched in sweat), work up revealed [...] symptomatic relief with methimazole and due to the fact that prior work up was negative for [...] medication and the issue reportedly subsided on its own.??In mar, 2019, she developed a myriad of symptoms (severe diarrhea, worsening of her underlying depression and anxiety, with difficultly controlling her anger,??extreme hot flashes and wakingup at??night drenched in sweat), work up revealed [...] symptomatic relief with methimazole and due to the fact that prior work up was negative for [...] Dr. Grewal ?? Antoni Jones Endocrinology fellow [facility] * Maura Grewal MD - 11/26/2020 10:30 AM [...] AM EDT TH Visit (TeleHealth) [place] [address] Gricel Stoddard APRN [facility] [place] [address] documented as of this encounter Procedures Procedure Name Priority Date/Time Associated Diagnosis Comments GOLD TUBE HOLD STAT 11/26/2020 11:52 AM EST documented in this encounter Results * Gold Tube HOLD (11/26/2020 11:52 AM EST) Gold Hold Sample in lab. [facility] Blood specimen (specimen) No Charge / Unknown 11/26/2020 11:52 AM EST 11/26/2020 12:24 PM EST Antoni Jones MD CHEMISTRY ORDERABLES [facility] [place] [address] documented in this encounter Visit Diagnoses Diagnosis Subclinical hyperthyroidism Thyrotoxicosis without mention of goiter or other cause, without mention of thyrotoxic crisis or storm documented in this encounter Care Teams Biodiesel Product Manager Relationship Specialty Start Date End Date Odalys Escobar, ERP TECHNICAL LEAD [address] [place] [address] PCP - General Family Medicine 11/26/20 02/22/23 documented as of this encounter
--- OUTSIDE RECORDS SUMMARY | 2024-07-30 16:34 | XMS_ITS | Encounter Summary ---
[place] [address] Care Team Providers Care Gas Pumping Station Supervisor Name Role Phone Malgorzata Orellana APRN Primary Care Provider Encounter Details Date Type Department Care Team (Late st Contact Info) Description 07/03/2019 Orders [place] [phone] Ashly Lucas, [facility] [place] [address] Thyroid disease Social History Tobacco Use Types [...] AM EDT TH Visit (TeleHealth) [place] [phone] Gricel Stoddard APRN [facility] [address] documented as of this encounter Visit Diagnoses Diagnosis Thyroid disease Unspecified disorder of thyroid documented in this encounter Care Teams Gas Pumping Station Supervisor Relationship Specialty Start Date End Date Malgorzata Orellana APRN [address] [place] [address] PCP - General Internal Medicine 03/22/19 10/13/20 documented as of this encounter
--- OUTSIDE RECORDS SUMMARY | 2024-07-30 16:34 | XMS_ITS | Encounter Summary ---
[place] [address] Care Team Providers Care Boil Off Machine Operator Cloth Name Role Phone Malgorzata Orellana APRN Primary Care Provider [phone] Encounter Details Date Type Department Care Team (Late st Contact Info) Description 07/02/2019 Telephone [place] [address] Medardo Gayle RN Social History [...] her labs today, per Dr Lucas's request. * Telephone Encounter - Medardo Gayle RN - 07/02/2019 10:45 AM EDT Pt left voicemail requesting a callback from Dr Lucas to go over her test results from the . Pt reports her psychiatrist is getting on her case wanting to know the results. Her psychiatrist wants to figure out her meds but says she can't until she knows what is going on with the thyroid. documented in this encounter Plan of Treatment Upcoming Encounters Date Type Department Care Team (Late st Contact Info) Description 01/24/2025 9:00 AM EDT TH Visit (TeleHealth) [place] [address] Gricel Stoddard APRN [facility] [place] [address] documented as of this encounter Visit Diagnoses Not on filedocumented in this encounter Care Teams Boil Off Machine Operator Cloth Relationship Specialty Start Date End Date Malgorzata Orellana APRN [address] [place] [address] PCP - General Internal Medicine 03/22/19 10/13/20 documented as of this encounter
--- OUTSIDE RECORDS SUMMARY | 2024-07-30 16:34 | XMS_ITS | Encounter Summary ---
Author Organization [facility] [place] [address] Care Team Providers Care Boatwright Name Role Phone Anthony Burns MD Primary Care Provider Reason for Visit * Consultation (Urgent) - Closed Specialty Diagnoses / Procedures Referred By Contac t Referred To Contact Psychiatry Diagnoses SUICIDAL IDEATION W/ INTENT AND PLAN - MDD, HX OF MULTIPLE HEAD TRAUMAS, HX OF HYPOXIA Procedures POSSIBLE ECT? REQUESTING NEUROPSYCH Sally Avery APRN [address] [place] [address] [facility] [place] [address] Referral ID Status Reason Start Date Expiration Date V isits Requested Visits Authorized [id number] Closed Consult, Test & Treat [facility] 09/07/2018 09/07/2019 1 1 Encounter Details Date Type Department Care Team (Late st Contact Info) Description 10/01/2018 1:00 PM EST Office Visit Psychiatry [place] [address] Emerson Perez MD [facility] [place] [address] Persistent depressive disorder Social History Tobacco Use Types Packs/Day Years Used Date Smoking Tobacco: Never Assessed Sex and Gender Information Value Date Recorded Sex Assigned at Female 12/12/2021 11:37 AM EST Gender Identity Female 11/16/2020 12:55 PM EST Sexual Orientation Straight 02/09/2022 11 :36 AM EDT documented as of this encounter Progress Notes * Emerson Perez MD - 10/01/2018 1:00 PM EST Mood Disorders Service Department of Psychiatry Summary of Evaluation and Recommendations Date of Evaluation: 10/01/18 This patient was seen and discussed with teaching faculty Dr. Shawn Land. Please see their note for additional details. IDENTIFYING DATA: Franchesca Dickson (: 1975) was referred by Silvio Avery APRN for evaluation of depressed mood and suicidal ideation. HISTORY OF PRESENT ILLNESS: (eg, age of onset, number and duration of episodes, interepisode status, presence of seasonal variation). Patient with a history [...] thoughts. She says she has felt even worse since the summer, leading up to and following a suicide attempt by intentional overdose. She says that she will have days where she may feel ok, but that these periods do not last longerthan a day and she denies any memory of ever feeling happy. She endorses symptoms of depressed mood, anhedonia (in the past has enjoyed doing artwork and crafts, though has not been able to do this since before her decompensation last summer), low energy and motivation, low self-worth, psychomotor retardation, and suicidal ideation. Her suicidal ideation ischronic. She denies any active intent or plan currently. Regarding her diagnosis of bipolar disorder, she said she was recently given this diagnosis after an intake with [facility]. She reports having periods lasting a few hours to a day where she will have up energy, with a feeling that her mind is racing and that she is crawling out of my skin. During these periods she will make splurge purchases. She describes her mood during these periods as weird: not down, not up. She says she has problems sleeping during these periods, butgets tired and will crash afterwards. She endorses a [...] of hearing classical music (which she does not like). She says these episodes come and go. [...] it helpful. 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 We also feel she likely has a primary emotional regulation disorder underlying her current presentation. She meets several of the criteria for borderline personality disorder: unstable self- image, episodes of impulsivity,recurrent suicidal ideation and self-harm behavior (cutting), affective instability (intense dysphoria and irritability lasting a few hours to a day), chronic feeling of emptiness, and transient, stre ss-related paranoid ideation. Her risk factors for borderline [...] her current medication regimen, we would recommend maintaining it at this time. Shickshinny level should be checked and lithium optimized: though we do not feel she has bipolar disorder, lithium can be an effective agent for treatment of depressed mood and can alsoprovide affective stabilization in the context of borderline personality disorder. We would also recommend adding T3 for anti-depressant augmentation, starting at 25mcg and titrating up to 100mcg as tolerated. As a second step, we would recommend further augmentation with buspirone, with a target dose of 60mg to 90mg daily. At this point, we would strongly recommend that she engage in an evidence based psychotherapy directed at treating symptoms of borderline personality disorder, such as Dialectical behavioral therapy.This is the first line treatment for these symptoms and if she were able to successfully engage in treatment, this could be life changing for her. Due to the chronicity of her symptoms, their severity, their level of treatment resistance, and their non-episodic nature, there is little likelihood of benefit from ECT or TMS. If her symptoms were to worsen and she became acutely suicidal, we would reconsider ECT, however, at this points we do not feel the little likely benefit from the procedure outweigh its risks. Regarding her safety: she currently denies active intent or plan for suicide, but given her historyof suicide attempt, self-harm, and her persistent depressed mood, she remains at an elevated risk for suicide attempt and completion. Involuntary inpatient hospitalization is [...] these recommendations prove not to be helpful, or if there are additional questions. Thank you for this interesting consultation. * Shawn Land III, MD - 10/01/2018 1:00 [...] AM EDT TH Visit (TeleHealth) [place] [address] Gricel Stoddard APRN [facility] [place] [address] documented as of this encounter Visit Diagnoses Diagnosis Persistent depressive disorder documented in this encounter Care Teams Boatwright Relationship Specialty Start Date End Date Anthony Burns MD [address] [place] [address] PCP - General 10/25/11 03/21/19 documented as of this encounter
--- OUTSIDE RECORDS SUMMARY | 2024-07-30 16:34 | XMS_ITS | Encounter Summary ---
[place] [address] Care Team Providers Care Fiberglass Dowel Drawing Operator Name Role Phone Malgorzata Orellana APRN Primary Care Provider [phone] Encounter Details Date Type Department Care Team (Late st Contact Info) Description 08/30/2019 Tele[place] [address] Ashly Lucas, [facility] [place] [address] Social History Tobacco Use Types Packs/Day Years [...] were checked prior to starting Methimazole given the inherent, but rare, risks associated which are outlined in my previous telephone note. Given the above information, I have recommended starting Methimazole 5 mg daily. This has been sentto her pharmacy. Risks were again discussed, and symptoms to look out for were reviewed. She again verbalizes understanding to stop Methimazole and call the office immediately if any concerning symptoms such as fever, sore throat, abdominal pain, jaundice or nausea/vomiting occur. If this occurs, she understands that she will be sent for STAT labs to rule out agranulocytosis or liver toxicity. I will repeat labs in 4-6 weeks to ensure thyroid function are trending to euthyroidism and ALT/AST/cell lines remain normal. She will do these at [facility] and let us know when they are completed. Ashly Lucas DO, PGY6 Endocrinology, Diabetes and Metabolism Fellow 08/30/2019 10:55 AM Pager #[phone] documented in this encounter Plan of Treatment Upcoming Encounters Date Type Department Care Team (Late st Contact Info) Description 01/24/2025 9:00 AM EDT TH Visit (TeleHealth) [place] [address] Gricel Stoddard APRN [facility] [place] [address] documented as of this encounter Visit Diagnoses Diagnosis Hyperthyroidism Thyrotoxicosis without mention of goiter or other cause, without mention of thyrotoxic crisis or storm documented in this encounter Care Teams Fiberglass Dowel Drawing Operator Relationship Specialty Start Date End Date Malgorzata Orellana APRN [address] [place] [address] PCP - General Internal Medicine 03/22/19 10/13/20 documented as of this encounter
--- OUTSIDE RECORDS SUMMARY | 2024-07-30 16:34 | XMS_ITS | Encounter Summary ---
Author Organization [facility] Address [address] [place] [address] Care Team Providers Care Yellow Pages Space Salesperson Name Role Phone Odalys Escobar Primary Care Provider [phone] Encounter Details Date Type Department Care Team (Late st Contact Info) Description 07/25/2022 Orders Only [facility] Endocrinology - [address] [address] Ros Cronelius MD PhD [address] [facility] [address] [place] [address] Low TSH level (Primary Dx) Social History Tobacco Use Types [...] Yes 07/07/2022 documented as of this encounter Progress Notes * Ros Cornelius MD PhD - 07/25/2022 7755 EDT Pt called with labs that her Free hormones are all normal. Her markers for Graves' and yazmin's are both negative. Thus the goiter appears at this time to not be associated with measurable autoimmune markers. Giventhis she is not at increased risk for soon to happen hypothyroidism or hyperthyroidism. 1. Continue with observation. 2. Can get Thyroid cascade done in 4-6 mos-ordered at [facility] per pt request. DR. Cornelius documented in this encounter Plan of Treatment Not on file documented as of this encounter Visit Diagnoses Diagnosis Low TSH level- Primary Nonspecific abnormal results of thyroid function study documented in this encounter Care Teams Yellow Pages Space Salesperson Relationship Specialty Start Date End Date Odalys Escobar [place] [address] PCP - General 07/07/22 documented as of this encounter
--- OUTSIDE RECORDS SUMMARY | 2024-07-30 16:34 | XMS_ITS | Encounter Summary ---
[place] [address] Care Team Providers Care Transit Department Clerk Name Role Phone Malgorzata Orellana APRN Primary Care Provider [phone] Encounter Details Date Type Department Care Team (Late st Contact Info) Description 01/17/2020 Orders [place] [phone] Ashly Lucas, [facility] DR ENDOCRINOLOGY [place] [address] Hyperthyroidism Social History Tobacco Use Types Packs/Day [...] AM EDT TH Visit (TeleHealth) [place] [address] Gricel Stoddard APRN [facility] [place] [address] documented as of this encounter Visit Diagnoses Diagnosis Hyperthyroidism Thyrotoxicosis without mention of goiter or other cause, without mention of thyrotoxic crisis or storm documented in this encounter Care Teams Transit Department Clerk Relationship Specialty Start Date End Date Malgorzata Orellana, MATERIAL MAN [address] [place] [address] PCP - General Internal Medicine 03/22/19 10/13/20 documented as of this encounter
--- OUTSIDE RECORDS SUMMARY | 2024-07-30 16:34 | XMS_ITS | Referral Summary ---
Author Organization [facility] Address [address] [place] [address] Care Team Providers Care Skin Care Instructor Name Role Phone Odalys Escobar MOISES Primary Care Provider [phone] Encounters Date Type Department Care Team Description 07/05/[address] [facility] Pathology & Laboratory Medicine - [facility] [address] [place] [address] Emerson Hernandez MD Other fecal abnormalities; Noninfective gastroenteritis and colitis, unspecified from Last 3 Months Allergies Active Allergy Reactions Criticality Noted Date [...] 40 mg by mouth daily. 06/29/2022 Active Social History Tobacco Use Types Packs/Day Years Used Date Smoking Tobacco: Every Day Smokeless Tobacco: Current Interpersonal Safety Answer Date Record ed Physically Hurt Never 06/14/2020 Verbally Threaten Not on file 06/14/2020 Sex and Gender Information Value Date Recorded Sex Assigned at Female 03/07/2022 10:17 EDT Gender Identity Female 03/07/2022 10:17 EDT Sexual Orientation Not on file Last Filed Vital Signs Vital Sign Reading Time Taken Comments Blood Pressure 115/71 07/07/2022 0928 EDT Pulse 77 07/07/2022 0928 EDT Temperature - - Respiratory Rate - - Oxygen Saturation - - Inhaled Oxygen Concentration - - Weight 68 kg (150 lb) 07/07/2022 0928 EDT Height 151 cm (4' 11.45) 07/07/2022 0928 EDT Body Mass Index 29.84 07/07/2022 0928 EDT Functional Status Functional Status Response Date of [...] concentrating, remembering, or making decisions? Yes 07/07/2022 Plan of Treatment Not on file Procedures Procedure Name Priority Date/Time Associated Diagnosis [...] explore management options, if applicable. 07/09/2024 15:52 [facility] Final Diagnosis A. CECUM, [...] for features of microscopic colitis. 07/09/2024 15:52 [facility] Diagnosis Comment The technical component of the specimen processing was performed at the [facility] Pathology Department, [address] [place] [address] (CLIA [id number]). The professional component of the specimen evaluation (slide review and issuing of the final diagnosis) was performed at [facility], [address] [place] [address] (CLIA License Number [id number]). 07/09/2024 15:52 [facility] Attestation By the signature below, the attending physician certifies that they have 1) personally conducted a gross and/or microscopic examination of the described specimen(s), and/or personally interpreted the results of laboratory testing of the described specimen(s), and 2) personally rendered or confirmed the above diagnosis. 07/09/2024 15:52 [facility] at 1552 Clinical History IBS, GERD, chronic diarrhea, functional dyspepsia, elevated fecal calprotectin, abd pain; clinical diagnosis code: K52.9, R19.5 07/09/2024 15:52 [facility] Gross Description A. Received [...] Suni Hernandez 07/06/2024 9:52 07/09/2024 15:52 EDT [facility] Performing Lab [facility] 15:52 EDT [facility] Scanned Images 07/09/2024 15:52 EDT [facility] Tissue SPECIMEN FROM RECTUM / [...] EDT Emerson Hernandez MD PATHOLOGY ORD ERABLES [facility] [address] [place] [address] * HEPATITIS C AB W REFLEX TO HCV RNA BY PCR (11/26/2021 10:11 EST) Hep C Antibody Negative Negative 11/29/2021 10:57 EST [facility] Blood VENOUS BLOOD / Unknown 11/26/2021 10:11 EST 11/26/2021 21:35 EST Provider Outr Resulting Lab CHEMISTRY & BLOOD GAS ORDERABLES [facility] [address] [place] [address] from Last 3 Months or Most Recently Relevant to Health Maintenance Care Teams Skin Care Instructor Relationship Specialty Start Date End Date Odalys [place] [place] [address] PCP - General 07/07/22
--- OUTSIDE RECORDS SUMMARY | 2024-07-30 16:34 | XMS_ITS | Encounter Summary ---
[place] [address] Care Team Providers Care Mat Puncher Name Role Phone Odalys Escobar APRN Primary Care Provider [phone] Reason for Referral * Diagnostic Test (Routine) - Closed Specialty Diagnoses / Procedures Referred By Contac t Referred To Contact Radiology Diagnoses Cerebral aneurysm, nonruptured Procedures IR Arteriogram Cerebral Gricel Stoddard APRN [facility] [place] [address] [place] [address] Referral ID Status Reason Start Date Expiration Date V isits Requested Visits Authorized [id number] Closed Specialty Service Requested 01/28/2022 11/12/2022 1 1 Reason for Visit * Consultation (Routine) - Closed Specialty Diagnoses / Procedures Referred By Contac t Referred To Contact Neurosurgery Diagnoses Cerebral aneurysm, nonruptured INCIDENTAL FINDING OF 7MM R SUPRACLINOID INTERAL CAROTID ARTERY ANEURYSM Yue Peterson MD [address] [address] Sary Bloom MD [facility] [place] [address] Referral ID Status Reason Start Date Expiration Date V isits Requested Visits Authorized [id number] Closed Consult, Test & Treat Connection Center PCP Updated and/or Approved 11/08/2021 11/08/2022 10 10 Encounter Details Date Type Department Care Team (Late st Contact Info) Description 12/02/2021 3:40 PM EST Office Visit Neurosurgery at [facility] [place] [address] Sary Bloom MD [facility] [place] [address] Cerebral aneurysm, nonruptured; Right internal carotid artery [...] 36.4 ??C (97.6 ??F) 12/02/2021 3:36 PM ES T Respiratory Rate 16 12/02/2021 3:36 PM EST Oxygen Saturation - - Inhaled Oxygen Concentration - - Weight 68.2 kg (150 lb 6.4 oz) 12/02/2021 3:36 P M EST Height 154.9 cm (5' 0.98) 12/02/2021 3:36 PM ES T Body Mass Index 28.43 12/02/2021 3:36 PM EST documented in this encounter Progress Notes * Sary Bloom MD - 12/02/2021 3:40 PM EST Section of Neurosurgery Initial Consultation Note 12/02/2021 Yue Peterson MD [address] [place] [address] RE: Franchesca Dickson : [address] 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 As you know, Ms. Dickson is apleasant 46 y.o. female who was found to have this aneurysm on workup for her chronic psychiatric conditions. The patient has a history of bipolar disease with manice features and was referred to a ne urologist for further evaluation. Imaging workup was done [...] 36.4 ??C (97.6 ??F), temperature source Temporal, resp. rate 16, height 154.9 cm (5' 0.98), weight [...] 7 mm in largest dimension extending intradurally. IMPRESSION AND PLAN: Ms. Dickson is a 46 y.o. female presenting with incidental ICA aneurysm. I reviewed the imaging studies with the patient and her family. We discussed the nature of aneurysms and the factors contributing to their grwoth and rupture. Given the size, [...] Sary Bloom MD, PhD Section [place] [address] CC: Odalys Escobar APRN CC: Yue Peterson MD [address] [place] [address] This message is confidential, intended only for [...] message. documented in this encounter Miscellaneous Notes * Addendum Note - Gricel Stoddard APRN - 12/02/2021 3:40 PM ESTAddended by: GRICEL STODDARD on: 01/05/2022 05:24 PM Modules accepted: Orders documented in this encounter Plan of Treatment Upcoming Encounters Date Type Department Care Team (Late st Contact Info) Description 01/24/2025 9:00 AM EDT TH Visit (TeleHealth) [place] [address] Gricel Stoddard APRN [facility] [place] [address] documented as of this encounter Results * IR Arteriogram Cerebral (01/28/2022 12:26 PM EDT) Anatomical Region Laterality Modality X-Ray Angiograph y Narrative 02/18/2022 8:22 AM EDT Awaiting images to be uploaded to PACS Refer to eDH for procedure note Gricel Stoddard APRN IMG IR ORDERABLES * P2Y12 Antiplatelet ([facility]) (01/28/2022 7:59 AM EDT) P2Y12 [address] [facility] Comment: Test results are reported [...] Agency Comment Spec In Lab Gricel Stoddard [facility] ORDERABLE S Performing Organization Address City/State/[facility] [place] [address] documented in this encounter Visit Diagnoses Diagnosis Cerebral aneurysm, nonruptured Right internal carotid artery aneurysm Cerebral aneurysm, nonruptured Right internal carotid artery aneurysm Cerebral aneurysm, nonruptured Cerebral aneurysm, nonruptured documented in this encounter Care Teams Mat Puncher Relationship Specialty Start Date End Date Odalys Escobar APRN [address] [place] [address] PCP - General Family Medicine 11/26/20 02/22/23 documented as of this encounter
--- OUTSIDE RECORDS SUMMARY | 2024-07-30 16:34 | XMS_ITS | Encounter Summary ---
[place] [address] Care Team Providers Care Gas Derrick Operator Name Role Phone Malgorzata Orellana APRN Primary Care Provider Reason for Referral * Diagnostic Test (Routine) - Closed Specialty Diagnoses / Procedures Referred By Contac t Referred To Contact Radiology Diagnoses Hyperthyroidism Procedures NM I-123 Thyroid Imaging w Uptake Ashly Lucas [facility] [place] [address] [place] [address] Referral ID Status Reason Start Date Expiration Date V isits Requested Visits Authorized [id number] Closed Specialty Service Requested 06/14/2019 06/13/2020 1 1 Reason for Visit * Diagnostic Test (Routine) - Closed Specialty Diagnoses / Procedures Referred By Contac t Referred To Contact Radiology Diagnoses Hyperthyroidism Procedures NM I-123 Thyroid Imaging w [place]ake Ashly Lucas [facility] [place] [address] [place] [address] Referral ID Status Reason Start Date Expiration Date V isits Requested Visits Authorized [id number] Closed Specialty Service Requested 06/14/2019 06/13/2020 1 1 Encounter Details Date Type Department Care Team (Latest Contact Info) Description 06/25/2019 12:34 PM EDT - 06/25/2019 11:59 PM EDT Hospital En[place] [address] Mo Salinas MD [facility] DR ENDOCRINOLOGY [place] [id number] Hyperthyroidism Discharge Disposition: Home Social History Tobacco [...] AM EDT TH Visit (TeleHealth) [place] [address] Gricel Stoddard, TOSHIA [facility] [place] [address] documented as of this encounter Procedures Procedure Name Priority Date/Time Associated Diagnosis Comments NM I 123 THYROID IMAGING WITH UPTAKE Routine 06/25/2019 1:50 PM EDT Hyperthyroidism documented in this encounter [...] below. ? Electronically signed by: Samir Alcantara, [facility] ([phone]), at 06/25/2019 4:20 PM Narrative 06/25/2019 4:20 [...] the number below. Electronically signed by: Samir Alcantara [facility]([phone]), at 06/25/2019 4:20 PM Mo Salinas MD [facility] ORDERABLES documented in this encounter Visit Diagnoses Diagnosis Hyperthyroidism Thyrotoxicosis without mention of goiter or other cause, without mention of thyrotoxic crisis or storm documented in this encounter Care Teams Gas Derrick Operator Relationship Specialty Start Date End Date Malgorzata Orellana, [address] [place] [address] PCP - General Internal Medicine 03/22/19 10/13/20 documented as of this encounter
--- OUTSIDE RECORDS SUMMARY | 2024-07-30 16:34 | XMS_ITS | Encounter Summary ---
Author Organization [facility] Address [address] [place] [address] Care Team Providers Care Facilities Operator Name Role Phone Odalys Escobar MOISES Primary Care Provider [phone] Encounter Details Date Type Department Care Team (Late st Contact Info) Description 08/30/2022 Lab Requisition [facility] Pathology & Laboratory Medicine - [facility] [address] [place] [address] Outr Resulting Lab, Provider Social History Tobacco [...] Procedure Name Priority Date/Time Associated Diagnosis Comments T3 FREE Routine 08/29/2022 16:40 EDT HOMOCYSTEINE Routine 08/29/2022 16:40 EDT documented in this encounter Results * T3 FREE (08/29/2022 16:40 EDT) T3, Free 2.9 2.8 - 5.3 pg/mL 08/30/2022 17:25 EDT [facility] Blood VENOUS BLOOD / Unknown 08/29/2022 16:40 EDT 08/30/2022 16:50 EDT Provider Outr Resulting Lab CHEMISTRY & BLOOD GAS ORDERABLES Performing Organization Address [facility] Co de Phone Number [facility] [address] [place] [address] * (ABNORMAL) HOMOCYSTEINE (08/29/2022 16:40 EDT) Homocysteine 20.2(H) 5.0 - 13.9 umol/L 08/31/2022 9:37 EDT [facility] Comment:Results may be false ly elevated if sample is not collected on ice or is not removed from cells within 1 hour of collection. Blood VENOUS BLOOD / Unknown 08/29/2022 16:40 EDT 08/31/2022 9:33 EDT Narrative [facility] - 08/31/2022 9:37 EDT Reference range may not apply to non-fasting samples. ??It is not recommended that EDTA plasma and serum from the same patient be used interchangeably. ??Serum concentrations have been observed to be up to 10% higher than EDTA plasma. Reference range may not apply to serum results. Provider Outr Resulting Lab CHEMISTRY & BLOOD GAS ORDERABLES Performing Organization Address City/[facility] Co de Phone Number [facility] [address] [place] [address] documented in this encounter Visit Diagnoses Not on filedocumented in this encounter Care Teams Facilities Operator Relationship Specialty Start Date End Date Odalys Escobar FNP [address] [place], [place] [address] PCP - General 07/07/22 documented as of this encounter
--- OUTSIDE RECORDS SUMMARY | 2024-07-30 16:34 | XMS_ITS | Encounter Summary ---
Author Organization [facility] Address [address] [place] [address] Care Team Providers Care Product Marketer Name Role Phone Odalys Escobar MOISES Primary Care Provider [phone] Encounter Details Date Type Department Care Team (Late st Contact Info) Description 02/28/2024 Lab Requisition [facility] Pathology & Laboratory Medicine - [facility] [address] [place] [address] Outr Resulting Lab, Provider Social History Tobacco [...] Procedure Name Priority Date/Time Associated Diagnosis Comments ACUTE HEPATITIS PROFILE Routine 02/27/2024 16:52 EDT HEPATITIS B SURFACE ANTIBODY Routine 02/27/2024 16:52 EDT documented in this encounter Results * HEPATITIS B SURFACE ANTIBODY (02/27/2024 16:52 EDT) Hep B Surface Ab, Quantitative 124.9 See Note mIU/mL 02/29/2024 10:22 EDT [facility] Comment: Reference Range for Hep B Surface Ab, Quant: Positive: >= 10.0 mIU/mL Negative: ??< 10.0 mIU/mL Patient is presumed to be immune to infection with Hepatitis B Virus. Hep B Surface Ab, Qualitative Positive See Note 02/29/2024 10:22 EDT [facility] Comment: Reference Range for Hep B Surface Ab, Qual: Unvaccinated: ??Negative Vaccinated: ??Positive Blood VENOUS BLOOD / Unknown 02/27/2024 16:52 EDT 02/28/2024 17:40 EDT Provider Outr Resulting Lab CHEMISTRY & BLOOD GAS ORDERABLES Performing Organization Address City/[facility] Co de Phone Number [facility] [address] [place] [address] * ACUTE HEPATITIS PROFILE (02/27/2024 16:52 EDT) Hep B Surface Ag Negative Negative 02/29/2024 11:30 EDT [facility] Hep C Antibody Negative Negative 02/29/2024 11:30 EDT [facility] Hepatitis A Antibody, IgM Negative Negative 02/29/2024 11:30 EDT [facility] Comment:The results of this assay can be falsely lowered due to the consumption of Biotin. Hepatitis B Core Ab, Total Negative Negative 02/29/2024 11:30 EDT [facility] Blood VENOUS BLOOD / Unknown 02/27/2024 16:52 EDT 02/28/2024 17:40 EDT Provider Outr Resulting Lab CHEMISTRY & BLOOD GAS ORDERABLES Performing Organization Address City/[facility] Co de Phone Number [facility] [address] [place], [place] [address] documented in this encounter Visit Diagnoses Not on filedocumented in this encounter Care Teams Product Marketer Relationship Specialty Start Date End Date Odalys Escobar FNP [address] [place] [address] PCP - General 07/07/22 documented as of this encounter
--- OUTSIDE RECORDS SUMMARY | 2024-07-30 16:34 | XMS_ITS | Encounter Summary ---
Author Organization [facility] [place] [address] Care Team Providers Care Kiln Furniture Caster Name Role Phone Odalys Escobar APRN Primary Care Provider [phone] Encounter Details Date Type Department Care Team (Late st Contact Info) Description 11/08/2021 Ancillary Procedure Radiology Library at [facility] [place] [address] Odalys Escobar APRN [address] [place], [place] [address] Social History Tobacco Use Types Packs/Day Years [...] AM EDT TH Visit (TeleHealth) Neurosurgery at [facility] [place] [address] Gricel Stoddard APRN [facility] [place] [address] documented as of this encounter Procedures Procedure Name Priority Date/Time Associated Diagnosis Comments FILM LIBRARY STORAGE ONLY CT HEAD Routine 11/08/2021 12:00 AM EST documented in this encounter Results * Film Library- Storage Only CT Head (11/08/2021 12:00 AM EST) Narrative ROSENDA - 11/16/2021 5:56 AM EST This exam is auto-finalizing. It's purpose is for storage only. Odalys Escobar APRN [facility] FILM LIBRARY ORD ERABLES [place], [place] documented in this encounter Visit Diagnoses Not on filedocumented in this encounter Care Teams Kiln Furniture Caster Relationship Specialty Start Date End Date Odalys Escobar APRN [address] [place] [address] PCP - General Family Medicine 11/26/20 02/22/23 documented as of this encounter
--- OUTSIDE RECORDS SUMMARY | 2024-07-30 16:34 | XMS_ITS | Encounter Summary ---
Author Organization [facility] [place] [address] Care Team Providers Care Pharmacy Stock Clerk Name Role Phone Malgorzata Orellana APRN Primary Care Provider [phone] Encounter Details Date Type Department Care Team (Late st Contact Info) Description 10/31/2019 Notes [place] [address] Medardo Gayle RN Social History Tobacco Use Types Packs/Day Years Used Date Smoking Tobacco: Every Day Cigarettes Smokeless Tobacco: Never Sex and Gender Information Value Date Recorded Sex Assigned at Female 12/12/2021 11:37 AM EST Gender Identity Female 11/16/2020 12:55 PM EST Sexual Orientation Straight 02/09/2022 11 :36 AM EDT documented as of this encounter Progress Notes * Medardo Gayle RN - 10/31/2019 11:11 AM EST Faxed lab orders for T3 total, free T4, and TSH to [facility] lab. Confirmation received @3658. documented in this encounter Plan of Treatment Upcoming Encounters Date Type Department Care Team (Late st Contact Info) Description 01/24/2025 9:00 AM EDT TH Visit (TeleHealth) [place] [address] Gricel Stoddard APRN [facility] [place] [address] documented as of this encounter Visit Diagnoses Not on filedocumented in this encounter Care Teams Pharmacy Stock Clerk Relationship Specialty Start Date End Date Malgorzata Orellana APRN [address] [place] [address] PCP - General Internal Medicine 03/22/19 10/13/20 documented as of this encounter
--- OUTSIDE RECORDS SUMMARY | 2024-07-30 16:34 | XMS_ITS | Encounter Summary ---
Author Organization [facility] Address [address] [place] [address] Care Team Providers Care Podiatry Doctor Name Role Phone Odalys Escobar MOISES Primary Care Provider [phone] Encounter Details Date Type Department Care Team (Late st Contact Info) Description 07/05/2024 Lab Requisition [facility] Pathology & Laboratory Medicine - [address] [address] Emerson Hernandez MD [address] [place] [address] Other fecal abnormalities; Noninfective gastroenteritis and colitis, unspecified Social History Tobacco Use Types Packs/Day Years [...] fecal abnormalities Noninfective gastroenteritis and colitis, unspecified documented in this encounter Results * SURGICAL PATHOLOGY (07/04/2024 13:18 EDT) Note to Patient The following pathology results have been interpreted by your pathologist and may be available to you before your health provider has had the opportunity to review them. Please allow time for your provider to receive these results and explore management options, if applicable. 07/09/2024 15:52 [facility] Final Diagnosis A. CECUM, BIOPSY: [...] for features of microscopic colitis. 07/09/2024 15:52 [facility] Diagnosis Comment The technical component of the specimen processing was performed at the Pathology Department, [address] [place] [address] (CLIA [id number]). The professional component of the specimen evaluation (slide review and issuing of the final diagnosis) was performed at [facility], [address] [place] [address] (CLIA License Number [id number]). 07/09/2024 15:52 [facility] Attestation By the signature below, the attending physician certifies that they have 1) personally conducted a gross and/or microscopic examination of the described specimen(s), and/or personally interpreted the results of laboratory testing of the described specimen(s), and 2) personally rendered or confirmed the above diagnosis. 07/09/2024 15:52 [facility] at 1552 Clinical History IBS, GERD, chronic diarrhea, functional dyspepsia, elevated fecal calprotectin, abd pain; clinical diagnosis code: K52.9, R19.5 07/09/2024 15:52 [facility] Gross Description A. Received in [...] Suni Hernandez 07/06/2024 9:52 07/09/2024 15:52 EDT [facility] Performing Lab [facility] 15:52 EDT [facility] Scanned Images 07/09/2024 15:52 EDT [facility] Tissue SPECIMEN FROM RECTUM / [...] EDT Emerson Hernandez MD PATHOLOGY ORD ERABLES [facility] [address] [place] [address] documented in this encounter Visit Diagnoses Diagnosis Other fecal abnormalities Noninfective gastroenteritis and colitis, unspecified documented in this encounter Care Teams Podiatry Doctor Relationship Specialty Start Date End Date Od[place] [address] PCP - General 07/07/22 documented as of this encounter
--- OUTSIDE RECORDS SUMMARY | 2024-07-30 16:34 | XMS_ITS | Encounter Summary ---
Author Organization Formerly [facility] [place] [address] Care Team Providers Care Senior Tax Manager Name Role Phone Odalys Escobar APRN Primary Care Provider [phone] Reason for Referral * Consultation (Routine) - Closed Specialty Diagnoses / Procedures Referred By Jennifer guillen Referred To Contact Gastroenterology Diagnoses Persistent depressive disorder Bipolar affective disorder, remission status unspecified Diarrhea, unspecified type Irritable bowel syndrome with diarrhea Bloating Poor appetite Early satiety Unintentional weight loss low fodmap diet Daphnie Sabillon APRN [facility] [place] [address] [facility] [place] [address] Referral ID Status Reason Start Date Expiration Date V isits Requested Visits Authorized [id number] Closed Continuity of Care 01/03/2022 01/03/2023 1 1 Reason for Visit * Consultation (Routine) - Closed Specialty Diagnoses / Procedures Referred By Contjennie t Referred To Contact Gastroenterology Diagnoses Diarrhea, unspecified Abdominal distension (gaseous) diarrhea/abd distension Javed Ramirez, DNP [address] [place] [address] [facility] [address] [place] [address] Referral ID Status Reason Start Date Expiration Date V isits Requested Visits Authorized [id number] Closed Consult, Test & Treat Connection Center PCP Updated and/or Approved 11/26/2021 05/26/2022 1 1 Encounter Details Date Type Department Care Team (Latest Contact Info) Description 01/03/2022 9:30 AM EST TH Visit (TeleHealth) [place] [address] Daphnie Sabillon APRN [facility] [place] [address] Diarrhea, unspecified type (Primary Dx); Persistent depressive disorder; Bipolar affective disorder, remission status unspecified; Irritable bowel syndrome with diarrhea; Bloating; Poor appetite; Early satiety; Unintentional weight loss Social History Tobacco Use [...] * Patient Instructions* Daphnie Sabillon APRN - 01/03/2022 10:04 AM EST It was nice to meet you today. The following orders were placed during our visit today: Orders Placed This Encounter Procedures ENDOSCOPY CASE REQUEST: EGD, UPPER GI ENDOSCOPY, COLONOSCOPY, DIAGNOSTIC C. Difficile Screen Giardia/Cryptosporidium Antigens ([facility]CG[facility]/APD/[place]) Stool Culture Screen ([facility]/CGP/APD/NL) Calprotectin, Stool Elastase, Stool Referral to Nutrition Services Please call the GI department to schedule the investigations if you do not hear from us within 1-2 weeks: [phone]. Please call radiology to schedule your imaging studies at the [facility]. Main radiology scheduling line Direct phone numbers: If you are scheduling an MRI, you can directly call: If you are scheduling a CT, you can directly call: If you are scheduling an ultrasound, you can directly call: Please go to or any [facility] affiliated lab to get any blood work/stool [...] call you if they are abnormal (no news is good news!). Below I have included some basic information functional bowel disorders and ways you can address various GI symptoms from home. I look forward to seeing you at your next visit, Daphnie Sabillon APRN Department of Gastroenterology and Hepatology [facility] Here is some information on the [...] and you will get a letter approximately 2 weeks after your procedure letting you know the results and next steps. If we are testing for celiac disease, you will need to eat gluten foods [...] disease, or Ulcerative colitis. Also if the cognos lead sees any polyps, they will be removed [...] unless I am placing an order and/or itneeds to be addressed sooner. Functional Bowel Disorders: Information Handout for Patients and Primary Care Providers Victor M Young MD, CPC + Chun Bell MD, SHILPA Aj Vasques APRN + Judit Sesay APRN + Daphnie Sabillon APRN [facility] Gastrointestinal Motility Center What are functional bowel disorders? These are the most common type of gastrointestinal disorders in the [facility] The most common functional bowel disorder [...] what is the impact? 15-20% of general [place] population has IBS or FD or both 2nd most common cause for lost work days (after common cold) in [place] Estimated $30 billion dollar cost to [place] economy per year These disorders can have [...] with immediate onset of symptoms after infection); assisted symptoms are expected in most patients however [...] to you primary care provider and/or local cognos lead and share this document. Treatment of functional [...] - this approach benefits most patients OTC (oond-imw-hbxvckj) medications can be used for ongoing bothersome symptoms as listed below Your provider (PCP or local Gastroenterology provider or [facility] Gastroenterology provider) may decide to use prescription [...] All-Bran psyllium buds, Metamucil, Konsyl, bulk psyllium (sli.do food stores and Limos.com stores) Specifically we recommend starting Metamucil or [...] but convincing medical evidence is still lacking Iejk-bki-tuohgmh supplements including probiotics are not typically evaluated [...] to decrease antibiotic-associated diarrhea and antibiotic-related infections Mrer-lks-Fllwaur Medications for Functional Gut Disorders Based on [...] a stool softener that is safe for long haul truck driver usage (no risk of dependency) andthe dosage [...] (GERD) Often a combination of anti-nausea medications (xfmz-hmc-atxmraf or prescription) works better thanhigh doses of [...] for misuse/misinterpretation of this information Patient Resources [place] [employer] https://www.gastro.org/practice-guidance/tn-kzizmjx-vhclhs/ topic/rriwulxaa-txulg-lnljnrsn-ibs Badgut.org https://badgut.org/information-centre/d-a-wqwlspgcx-topics/ibs/ AboutIBS.org https://www.aboutibs.org/ Uptodate.com https://www.Shockwave MedicaldaWeShop.MarkTend/contents/xftrlrziq-ektnt-blcnqgff-nlpshj-rlh-eklqxf documented in this encounter Progress Notes * Daphnie Sabillon APRN - 01/03/2022 9:30 AM [...] months -fiber caused constipation Per patient -bloating 24/7 like im 6 months -diarrhea all the time -cramping -no associated food triggers -ongoing for years -eats 1 meal per day: supper because of poor appetite -eats yogurt but has not tried specific probiotics BM: many more than 5 per day [place]: 6-7 with mucus Endorses occasional melena, steatorrhea, [...] been smoking about 1.00 pack per day. She has never used smokeless [...] of respiratory distress GI: Abdomen non-distended and tender [...] as culturelle or activia yogurt. Referral to paster operator to discuss fodmapsent. Labs faxed to [facility] to rule out pancreatic insufficiency and infection. Pt will likely need towork with PCP/prescribing provider for OCD/depression/bipolar medications to identify which neuromodulators would work best to help manage symptoms. From GI standpoint, amitriptyline is most helpful for IBS-D. After trialing dietary changes and neuromodulator, trial 14 day course rifaximin. Diagnostics: -referral to paster operator for FODMAP -EGD/colonoscopy with biopsies (MAC) -labs: fax to [facility] Therapeutics: -trial probioitic -start Citrucel: 2-6 tsp [...] 3 weeks The patient was located in [place] at the time of their visit. TIME SPENT WITH PATIENT Time spent reviewing records prior to this encounter on day of appointment: 5 minutes Time spent during encounter with patient including counselin minutes Time spent documenting encounter after office visit: 10 minutes Daphnie Sabillon APRN [facility] [place] [address] documented in this encounter Plan of Treatment Upcoming Encounters Date Type Department Care Team (Late st Contact Info) Description 01/24/2025 9:00 AM EDT TH Visit (TeleHealth) [place] [address] Gricel Stoddard APRN [facility] [place] [address] Scheduled Orders Name Type Priority Associated Diagnoses Orde r Schedule ENDOSCOPY CASE REQUEST: EGD, UPPER GI ENDOSCOPY, COLONOSCOPY, DIAGNOSTIC Procedures Routine Persistent depressive disorder Bipolar affective disorder, remission status unspecified Diarrhea, unspecified type Irritable bowel syndrome with diarrhea Bloating Poor appetite Early satiety Unintentional weight loss Ordered: 01/03/2022 Scheduled Referrals Name Type Priority Associated Diagnoses Orde r Schedule Referral to Nutrition Services Outpatient Referral Routine Persistent depressive disorder Bipolar affective disorder, remission status unspecified Diarrhea, unspecified type Irritable bowel syndrome with diarrhea Bloating Poor appetite Early satiety Unintentional weight loss Ordered: 01/03/2022 documented as of this encounter Visit Diagnoses Diagnosis Diarrhea, unspecified type- Primary Persistent depressive disorder Bipolar affective disorder, remission status unspecified Irritable bowel syndrome with diarrhea Irritable bowel syndrome Bloating Flatulence, eructation, and gas pain Poor appetite Anorexia Early satiety Unintentional weight loss Loss of weight documented in this encounter Care Teams Senior Tax Manager Relationship Specialty Start Date End Date Odalys Escobar APRN [address] [facility] [place] [address] PCP - General Family Medicine 11/26/20 02/22/23 documented as of this encounter
--- OUTSIDE RECORDS SUMMARY | 2024-07-30 16:34 | XMS_ITS | Encounter Summary ---
Author Organization [facility] [place] [address] Care Team Providers Care Waste Examiner Name Role Phone Malgorzata Orellana APRN Primary Care Provider [phone] Encounter Details Date Type Department Care Team (Late st Contact Info) Description 07/03/2020 Notes Only [place] [address] Antoni Jones MD [facility] [place] [address] Social History Tobacco Use Types Packs/Day Years Used Date Smoking Tobacco: Every Day Cigarettes Smokeless Tobacco: Never Sex and Gender Information Value Date Recorded Sex Assigned at Female 12/12/2021 11:37 AM EST Gender Identity Female 11/16/2020 12:55 PM EST Sexual Orientation Straight 02/09/2022 11 :36 AM EDT documented as of this encounter Progress Notes * Antoni Jones MD - 07/03/2020 3:13 PM EDT Labs from 06/26/20 TSH: 0.65 FT4: 1.04 TT3: 145 TSI: < 1.0 (<1.3) TPO: < 28 (<60) LFT: Normal WBC: 9.67 Celiac work up: negative Recommended to continue Methimazole 2.5 mg daily. She does not feel significant improvement in symptoms with or without Methimazole. Will follow up in clinic on 08/07/20 at 11 am to discuss further management given negative TSI ab and negative radioiodine uptake scan for Graves disease previously. documented in this encounter Plan of Treatment Upcoming Encounters Date Type Department Care Team (Late st Contact Info) Description 01/24/2025 9:00 AM EDT TH Visit (TeleHealth) [place] [address] Gricel Stoddard APRN [facility] [place] [address] documented as of this encounter Visit Diagnoses Not on filedocumented in this encounter Care Teams Waste Examiner Relationship Specialty Start Date End Date Malgorzata Orellana APRN [address] [place] [address] PCP - General Internal Medicine 03/22/19 10/13/20 documented as of this encounter
--- OUTSIDE RECORDS SUMMARY | 2024-07-30 16:34 | XMS_ITS | Encounter Summary ---
[place] [address] Care Team Providers Care Tar Leveler Name Role Phone Nya Escobarh TOSHIA Primary Care Provider [phone] Encounter Details Date Type Department Care Team (Latest Contact Info) Description 11/26/2020 10:25 AM EST Laboratory Appointment Lab [address] [place] [address] Subclinical hyperthyroidism Social History Tobacco Use Types [...] TH Visit (TeleHealth) [place] [address] Gricel Stoddard APRN [facility] [place] [address] documented as of this encounter Procedures Procedure Name Priority Date/Time Associated Diagnosis Comments HC TOTAL T3 Routine 11/26/2020 11:52 AM EST Subclinical hyperthyroidism HC THYROID STIMULATING HORMONE, SERUM Routine 11/26/2020 11:52 AM EST Subclinical hyperthyroidism HC FREE THYROXINE (T4) Routine 11/26/2020 11:52 AM EST Subclinical hyperthyroidism documented in this encounter Results * T4, free (11/26/2020 11:52 AM EST) Free T4 1.15 0.93 - 1.70 ng/dL [facility] Blood specimen (specimen) 11/26/2020 11:52 AM EST 11/26/2020 12:24 PM EST Narrative Resulting Agency Comment Spec In Lab Chris Gonzales MD CHEMISTRY ORDERABLE S Performing Organization Address City/[facility]/ZIP Co de Phone Number [facility] [place] [address] * T3 Total (11/26/2020 11:52 AM EST) T3 Total 99 75 - 170 ng/dL [facility] Blood specimen (specimen) 11/26/2020 11:52 AM EST 11/26/2020 12:24 PM EST Narrative Resulting Agency Comment Spec In Lab Chris Gonzales MD CHEMISTRY ORDERABLE S [facility] [place] [address] * TSH (11/26/2020 11:52 AM EST) Thyroid Stimulating Hormone 0.37 0.27 - 4.20 mcIU/mL [facility] Blood specimen (specimen) 11/26/2020 11:52 AM EST 11/26/2020 12:24 PM EST Narrative Resulting Agency Comment Spec In Lab Chris Gonzales MD CHEMISTRY ORDERABLE S [facility] [place] [address] documented in this encounter Visit Diagnoses Diagnosis Subclinical hyperthyroidism Thyrotoxicosis without mention of goiter or other cause, without mention of thyrotoxic crisis or storm documented in this encounter Care Teams Tar Leveler Relationship Specialty Start Date End Date Odalys Escobar, PHARMACEUTICAL PHYSICIAN [address] [facility] [place] [address] PCP - General Family Medicine 11/26/20 02/22/23 documented as of this encounter
--- OUTSIDE RECORDS SUMMARY | 2024-07-30 16:35 | XMS_ITS | Encounter Summary ---
Author Organization [facility] Address [address] [place] [address] Care Team Providers Care Paralegal Secretary Name Role Phone Unavailable Primary Care Provider Unavailabl e Encounter Details Date Type Department Care Team (Latest Contact Info) Description 02/16/2015 15:02 EDT - 02/16/2015 23:59 EDT Hospital Encounter [address] [address] Unknown, Provider, Discharge Disposition: Home or Self Care Social History Tobacco Use Types Packs/Day Years Used Date Smoking Tobacco: Never Assessed Sex and Gender Information Value Date Recorded Sex Assigned at Female 03/07/2022 10:17 EDT Gender Identity Female 03/07/2022 10:17 EDT Sexual Orientation Not on file documented as of this encounter Discharge Disposition Disposition Code Departure Means Destination Home or Self Long Term documented in this encounter Plan of Treatment Not on file documented as of this encounter Visit Diagnoses Not on filedocumented in this encounter
--- OUTSIDE RECORDS SUMMARY | 2024-07-30 16:35 | XMS_ITS | Encounter Summary ---
Author Organization [facility] Address [address] [place] [address] Care Team Providers Care Cyber Policy And Strategy Planner Name Role Phone Malgorzata Orellana LOCKSMITH Primary Care Provider [phone] Odalys Escobar Primary Care Provider [phone] Encounter Details Date Type Department Care Team (Late st Contact Info) Description 01/31/2022 Lab Requisition [facility] Pathology & Laboratory Medicine - [facility] [address] [place], [place] [address] Outr Resulting Lab, Provider Social History Tobacco Use Types Packs/Day Years Used Date Smoking Tobacco: Never Assessed Interpersonal Safety Answer Date Record ed Physically Hurt Never 06/14/2020 Verbally Threaten Not on file 06/14/2020 Sex and Gender Information Value Date Recorded Sex Assigned at Female 03/07/2022 10:17 EDT Gender Identity Female 03/07/2022 10:17 EDT Sexual Orientation Not on file documented as of this encounter Plan of Treatment Not on file documented as of this encounter Procedures Procedure Name Priority Date/Time Associated Diagnosis Comments FECAL BACTERIAL PATHOGENS BY PCR Routine 01/31/2022 11:03 EDT GIARDIA AND CRYPTOSPORIDIUM ANTIGENS Routine 01/31/2022 11:03 EDT documented in this encounter Results * GIARDIA AND CRYPTOSPORIDIUM ANTIGENS (01/31/2022 11:03 EDT) Giardia and Cryptosporidium Cryptosporidium Antigen Neg and Giardia Antigen Neg Cryptosporidium Antigen Neg and Giardia Antigen Neg 9:41 EDT [facility] Feces SPECIMEN FROM RECTUM / Unknown 01/31/2022 11:03 EDT 01/31/2022 21:07 EDT Provider Outr Resulting Lab MICROBIOLOGY - GENERAL ORDERABLES Performing Organization Address [facility] Co de Phone Number [facility] [address] [place] [address] * FECAL BACTERIAL PATHOGENS BY PCR (01/31/2022 11:03 EDT) Salmonella PCR Negative Negative 02/01/2022 10:45 EDT [facility] Shigella/Enteroin vasive E. coli Negative Negative 02/01/2022 10:45 EDT [facility] CAMPYLOBACTER PCR Negative Negative 02/01/2022 10:45 EDT [facility] Shiga Toxin PCR Negative Negative 10:45 EDT [facility] Feces SPECIMEN FROM RECTUM / Unknown 01/31/2022 11:03 EDT 01/31/2022 21:07 EDT Provider Outr Resulting Lab MICROBIOLOGY - GENERAL ORDERABLES Performing Organization Address [facility] Co de Phone Number [facility] [address] [place] [address] documented in this encounter Visit Diagnoses Not on filedocumented in this encounter Care Teams Cyber Policy And Strategy Planner Relationship Specialty Start Date End Date Malgorzata Orellana NP [address] [place] [address] PCP - General 08/24/20 07/06/22 [address] [place] [address] [place] [address] PCP - General 07/07/22 documented as of this encounter
--- OUTSIDE RECORDS SUMMARY | 2024-07-30 16:35 | XMS_ITS | Encounter Summary ---
Author Organization [facility] Address [address] [place] [address] Care Team Providers Care Machine Sign Writer Name Role Phone Tania Lee SENIOR ADMINISTRATIVE SERVICES OFFICER Primary Care Provider [phone] Encounter Details Date Type Department Care Team (Late st Contact Info) Description 03/26/2019 Results Only [facility] [phone] Carla Merrill MD [address] [place], [place] [address] Social History Tobacco Use Types Packs/Day Years [...] Priority Date/Time Associated Diagnosis Comments SURGICAL PATHOLOGY Routine 03/26/2019 15 :46 EDT documented in this encounter Results * SURGICAL PATHOLOGY (03/26/2019 15:46 EDT) Pathology Report: SURGICAL PATHOLOGY REPORT Reports generated via electronic interface contain original data; however they are lacking the format of the original report. Caution should be taken when reading/interpretin g unformatted reports. Name: ? ISREALROBERT María ? Accession #: ? [id number] ? : ? 1975 (Age: 43) ??F ? Collect Date: ? 03/26/2019 ? Location: ? [facility] ? Receive Date: ? 03/26/2019 ? Provider: CARLA MERRILL MD Copy to: FRANSICO RAMIREZ SENIOR ADMINISTRATIVE SERVICES OFFICER ? Final Pathologic Diagnosis: A. stomach, antrum, biopsy: - ??Antral and transitional mucosa with mild reactive gastropathy. - ??No evidence of Helicobacter pylori on H&E. B. gastroesophageal junction, biopsy: - ??Columnar mucosa with reactive features, negative for dysplasia or definite intestinal metaplasia. - ??Mild foveolar hyperplasia and inflammation, compatible with reflux esophagitis. - ??No squamous mucosa is [...] ??Colorectal mucosa with mild architectural disarray and patchy surface epithelial damage. See comment Comment: The surface epithelium shows evidence of injury; there is mucosal congestion/ hemorrhage and in rectum borders on early ischemia. There no significant but only rare foci with increase in intraepithelial lymphocytes. Features noted in these biopsies are mild and not entirely specific. These findings can be seen in context of resolved acute injury or medication/ drug effect, less likely, possibilities of evolving collagenous colitis or Celiac disease are not entirely excluded and clinical correlation is recommended. Part B: there is focally tissue clearing artifact in one level only, raising the possibility of rare goblet cell/ focal intestinal metaplasia but overall glanular features does not support this diagnosis. ?? Document reviewed and electronically signed by: ANALIA IBANEZ MD Report ??Date: 03/29/2019 13:57 By the signature above, the attending physician certifies that he/she has personally conducted a gross and/or microscopic examination [...] A. ?Received in formalin labelled with proper patient identification (initials A, N) and antrum biopsies are three pink-prieto tissues (0.2 x 0.2 x 0.1 cm to 0.4 x 0.2 x 0.1 cm). Entirely submitted in block A1. B. ?Received in formalin labelled with proper patient identification (initials A, N) and GE junction biopsies are three pink-prieto tissues (0.1 x 0.1 x 0.1 cm to 0.5 x 0.2 x 0.1 cm). Entirely submitted in block B1. C. ?Received in formalin labelled with proper patient identification (initials A, N) and rectal polyp are two pink-prieto tissues (0.3 x 0.2 x 0.1 cm and 0.4 x 0.2 x 0.1 cm). Entirely submitted in block C1. D. ?Received in formalin labelled with proper patient identification (initials A, N) and sigmoid polyp is a single pink-prieto tissue fragment (0.4 x 0.2 x 0.2 cm). Submitted intact in block D1. E. ?Received in formalin labelled with proper patient identification (initials A, N) and biopsies terminal ileum are seven prieto-brown tissues (0.3 x 0.2 x 0.1 cm to 0.7 x 0.1 x 0.1 cm). Entirely submitted in blocks E1-E2. F. ?Received in formalin labelled with proper patient identification (initials A, N) and biopsies ascending colon are five pink-prieto tissues (0.2 x 0.1 x 0.1 cm to 0.7 x 0.1 x 0.1 cm). Entirely submitted in blocks F1-F2. G. ?Received in formalin labelled with proper patient identification (initials A, N) and biopsies transverse colon are four pink-prieto tissues (0.3 x 0.2 x 0.1 cm to 0.7 x 0.2 x 0.1 cm). Entirely submitted in block G1. H. ?Received in formalin labelled with proper patient identification (initials A, N) and biopsies descending colon are four pink-prieto tissues (0.3 x 0.2 x 0.1 cm to 0.5 x 0.3 x 0.1 cm). Entirely submitted in block H1. I. ?Received in formalin labelled with proper patient identification (initials A, N) and descending colon polyp is a single light prieto tissue (0.5 x 0.3 x 0.2 cm). Entirely submitted in block I1. J. ?Received in formalin labelled with proper patient identification (initials A, N) and biopsies sigmoid are eight pink-prieto tissues (0.3 x 0.2 x 0.1 cm to 0.6 x 0.3 x 0.1 cm). Entirely submitted in blocks J1-J3. K. ?Received in formalin labelled with proper patient identification (initials A, N) and biopsies rectum are four pink-prieto tissues (0.3 x 0.2 x 0.1 cm to 0.6 x 0.1 x 0.1 cm). Entirely submitted in blocks K1-K2. JACOBY Vazquez ([facility]) 03/27/2019 8:51 AM End of Report [facility] 03/26/2019 15:4 6 EDT 03/26/2019 15:46 EDT Carla [place] MD PATHOLOGY ORDERA [facility] [address] [place] [address] documented in this encounter Visit Diagnoses Not on filedocumented in this encounter Care Teams Machine Sign Writer Relationship Specialty Start Date End Date Tania Lee, LLOYD [address] [place] [address] [place] [phone] PCP - General 02/17/15 08/23/20 documented as of this encounter
--- OUTSIDE RECORDS SUMMARY | 2024-07-30 16:35 | XMS_ITS | Encounter Summary ---
Author Organization [facility] Address [address] [place] [address] Care Team Providers Care Marriage And Family Counselor Name Role Phone Tania Lee DUMP TRUCK DRIVER Primary Care Provider [phone] Malgorzata Orellana DUMP TRUCK DRIVER Primary Care Provider Odalys Escobar LEAD GENERATION SPECIALIST Primary Care Provider Encounter Details Date Type Department Care Team (Late st Contact Info) Description 07/10/2020 Lab Requisition [facility] Pathology & Laboratory Medicine - [address] [id number] Outr Resulting Lab, Provider Social History Tobacco [...] Procedure Name Priority Date/Time Associated Diagnosis Comments OVA/PARASITE EXAM Routine 07/10/2020 7:06 EDT documented in this encounter Results * OVA/PARASITE EXAM (07/10/2020 7:06 EDT) Parasite No ova and parasites seen. 07/13/2020 10:49 EDT [facility] Feces SPECIMEN FROM RECTUM / Unknown 07/10/2020 7:06 EDT 07/10/2020 22:27 EDT Narrative [facility] - 07/13/2020 10:49 EDT (If Cryptosporidium, Cyclospora, or Microsporidium are suspected, specific tests must be requested.) Single negative specimen does not rule out the possibility of a parasitic infection. Provider Outr Resulting Lab MICROBIOLOGY - GENERAL ORDERABLES [facility] [address] [place] [address] documented in this encounter Visit Diagnoses Not on filedocumented in this encounter Care Teams Marriage And Family Counselor Relationship Specialty Start Date End Date Tania Lee NP [address] [place] [address] [place] [phone] PCP - General 02/17/15 08/23/20 Malgorzata Orellana NP [address] [place] [address] PCP - General 08/24/20 07/06/22 Odalys Escobar FNP [address] [place] [address] [place] [address] PCP - General 07/07/22 documented as of this encounter
--- OUTSIDE RECORDS SUMMARY | 2024-07-30 16:35 | XMS_ITS | Encounter Summary ---
Author Organization [facility] Address [address] [place] [address] Care Team Providers Care Junior Analyst Name Role Phone Unavailable Primary Care Provider Unavailabl e Encounter Details Date Type Department Care Team (Late st Contact Info) Description 04/30/2002 16:29 EDT Hospital Encounter [facility] - Other [address] [place] [address] Kodak Garcia MD [address] [place] [address] Unknown, MD Christy Social History Tobacco Use Types Packs/Day Years [...] Date/Time Associated Diagnosis Comments SURGICAL PATHOLOGY Routine 04/30/2002 0:00 EDT documented in this encounter Results * SURGICAL PATHOLOGY (04/30/2002 0:00 EDT) Pathology Report: SURGICAL PATHOLOGY REPORT Reports generated via electronic interface contain original data; however they are lacking the format of the original report. Caution should be taken when reading/interpreti ng unformatted reports. Name: ? ISREAL, FRANCHESCA ? Accession #: ? [id number] ? : ? 1975 (Age: 26) ??F ? Collect Date: ? 04/30/2002 ? Location: ? [facility] ? Receive Date: ? 04/30/2002 ? Provider: KODAK GARCIA MD Copy to: GABRIEL OLIVERA MD [...] Specimen (B) has been reviewed by Dr. Doris Garcia. ??(Dr. Mueller)/ Document reviewed and electronically [...] Gross Description: ? Received in formalin labelled Isreal and #1 endometrial uterine curettings is 1.0 x 1.0 x 0.3 cm of prieto-red hemorrhagic soft tissue fragments. The specimen is entirely submitted as (A). Received in formalin labelled Isreal and left ovarian cyst are multiple prieto-white to red fibromembranous irregular soft tissue fragments measuring 3.0 x 2.0 x 0.5 cm in aggregate. ??No discrete nodules nor excrescences are grossly identified. ??The specimen is entirely submitted as (B1) through (B3). Received in formalin labelled Isreal and right ovary/mass is the product of a right salpingo-oophorect juan which is received previously incised, has a combined weight of 23.71 grams, and a moderate amount of attached hemorrhagic material. ??The prieto-white multilobulated ovary measures 4.3 x 2.5 x 2.5 cm. ??Upon sectioning, there is a hemorrhagic 2.0 x 1.0 x 1.0 cm cyst-like structure. ??The remaining cut surfaces are predominantly prieto-white parenchyma with multiple eccentric thin walled cyst-like structures exuding a clear yellow fluid and range from 0.2 to 0.4 cm in greatest dimension. ??The cystic structures occupy approximately 30% of the cut surfaces. ??The attached fimbriated end fallopian tube measures 4.6 cm in length, 0.4 cm in diameter, and upon sectioning, the cut surfaces are prieto-white with a central pinpoint lumen. ??No excrescences are grossly identified. ??Gift Shop Clerk sections are submitted as follows. BLOCK REEVES C1-C3 ?Hemorrhagic cystic structure C4-C5 ?Unremarkable ovary C6 ?Gift Shop Clerk fallopian tube (Tanvi Blanco)/ljn End of Report SUPRIYA [facility] 04/30/2002 04/30/2002 15: 06 EDT Kodak Garcia MD PATHOLOGY ORDERABLES Performing Organization Address City/State/[facility] Co de Phone Number SUPRIYA [facility] [address] [place] [address] documented in this encounter Visit Diagnoses Not on filedocumented in this encounter
--- OUTSIDE RECORDS SUMMARY | 2024-07-30 16:35 | XMS_ITS | Encounter Summary ---
Author Organization [facility] Address [address] [place] [address] Care Team Providers Care Painter Supervisor Name Role Phone Unavailable Primary Care Provider Unavailabl e Encounter Details Date Type Department Care Team (Late st Contact Info) Description 09/24/2008 Before PRISM Converted Visit ([facility] - [facility] conversion [address] [place] [address] [facility] [address] [place], [place] [address] Social History Tobacco Use Types Packs/Day Years Used Date Smoking Tobacco: Never Assessed Sex and Gender Information Value Date Recorded Sex Assigned at Female 03/07/2022 10:17 EDT Gender Identity Female 03/07/2022 10:17 EDT Sexual Orientation Not on file documented as of this encounter Plan of Treatment Not on file documented as of this encounter Procedures Procedure Name Priority Date/Time Associated Diagnosis Comments CYTOPATHOLOGY Routine 09/24/2008 0:00 EST documented in this encounter Results * CYTOPATHOLOGY (09/24/2008 0:00 EST) Pathology Report: CYTOPATHOLOGY REPORT ? Reports generated via electronic interface contain original data; ? however they are lacking the format of the original report. ? Caution should be taken when reading/interpreti ng unformatted reports. ? Name: ? ROBERT BACH ? Accession #: ? [id number] ? : ? 1975 (Age: 32) ??F ?Collect Date: ? 09/24/2008 ? Location: ? [facility] ? Receive Date: ? 09/25/2008 ? Provider: ?PHUONG READY MD ? Copy to: ? Specimen/Source: ?Pap Test, Cervix/Endocervix, ThinPrep Imaging System ? with manual evaluation ? Last Menstrual Period: ? 11/04/08 ? Other: ? HPVA - HPV testing requested if ASC-US on the current ThinPrep Pap test. ? SPECIMEN ADEQUACY ? Satisfactory for Evaluation ? - transformation zone component absent ? GENERAL CATEGORIZATION ? Negative for Intraepithelial Lesion or Malignancy ? Document reviewed and electronically signed by: ? Tyson Evans, CT(ASCP) ? Report Date: ??09/30/2008 13:51 ? End of Report ? SUPRIYA VOGEL 09/24/2008 09/25/2008 Phuong Tripp MD PATHOLOGY ORDERABLES SUPRIYA [facility]OG[facility] [address] [place] [address] documented in this encounter Visit Diagnoses Not on filedocumented in this encounter
--- OUTSIDE RECORDS SUMMARY | 2024-07-30 16:35 | XMS_ITS | Encounter Summary ---
Author Organization [facility] Address [address] [place] [address] Care Team Providers Care Supervisor Gelatin Plant Name Role Phone Malgorzata Orellana VERTICAL CONTOUR BAND SAW OPERATOR Primary Care Provider [phone] Odalys Escobar Primary Care Provider [phone] Encounter Details Date Type Department Care Team (Late st Contact Info) Description 03/24/2021 Lab Requisition [facility] Pathology & Laboratory Medicine - [facility] [address] [place] [address] Katie Hubbard MD [address] [place] [address] [address] [place], [place] [id number] Encounter for other general examination Social History Tobacco Use Types Packs/Day Years [...] Date/Time Associated Diagnosis Comments SURGICAL PATHOLOGY Today 03/24/2021 13 :16 EDT Encounter for other general examination documented in this encounter Results * SURGICAL PATHOLOGY (03/24/2021 13:16 EDT) Final Diagnosis A. UTERUS, CERVIX, AND SUBMITTED BILATERAL FALLOPIAN TUBES, HYSTERECTOMY AND SALPINGECTOMY: - Endometrium: - Weakly proliferative with focal breakdown. - Myometrium: - Adenomyosis. - Cervix: - No specific pathologic features. - Serosa: - No specific pathologic features. - Fallopian tube, left: - Adhesions. - Right fallopian tube not identified. 03/29/2021 18:02 [facility] Attestation There was significant resident/fellow involvement in the diagnostic evaluation of this case. By the signature below, the attending physician certifies that they have personally conducted a gross and/or microscopic examination of the described specimens and rendered or confirmed the above diagnosis. 03/29/2021 18:02 [facility] at 1802 Clinical History Abnormal uterine bleeding 03/29/2021 18:02 [facility] Gross Description A. Received in formalin labelled with proper patient identification (initials A, N) and uterus, cervix, bilateral fallopian tubes is an intact unopened uterus (54 g, 8.8 cm fundus to cervix by 3.8 cm cornu to cornu by 3.8 cm anterior to posterior) and attached left fallopian tube (5.7 cm in length by 0.5 cm in diameter). The right fallopian tube is not identified. Attached to the right cornu is a 3.0 x 0.7 x 0.3 cm fragment of cauterized soft tissue. No additional tube is identified within the container. The serosa of the anterior surface is cauterized, red-brown, and focally disrupted, while the posterior serosa is smooth and prieto-arias. The cervix [...] in maximum thickness). The prieto, somewhat coarsely trabeculated myometrium has a maximum thickness of 1.7 cm. No intramural, submucosal, or subserosal nodules are identified. The left fallopian tube has smooth purple serosa and has an attached portion of adipose tissue (1.3 cm in greatest dimension). Sectioning reveals a patent unremarkable lumen. Cutting Machine Tender Helper sections are submitted as follows: BLOCK REEVES A1- anterior cervix to lower uterine segment, bisected A2- posterior cervix to lower uterine segment, bisected A3-A4- environmental marketing representative anterior endomyometrium A5-A6- environmental marketing representative posterior endomyometrium A7- left fallopian tube to include bisected fimbria A8- tissue attached to right cornu JACOBY AVILES(ASCP) 03/25/2021 10:21 03/29/2021 18:02 EDT [facility] Resident/Fred w: Frank Tobias MD 03/29/2021 18:02 EDT [facility] Performing Lab [facility] 03/29/2021 18:02 EDT [facility] Scanned Images 03/29/2021 18:02 EDT [facility] Tissue SPECIMEN FROM UTERUS / Unknown 03/24/2021 13:16 EDT 03/24/2021 23:37 EDT Katie Hubbard MD PATHOLOGY ORDERABLES [facility] [address] [place] [address] documented in this encounter Visit Diagnoses Diagnosis Encounter for other general examination documented in this encounter Care Teams Supervisor Gelatin Plant Relationship Specialty Start Date End Date Malgorzata Orellana NP [address] [place] [address] PCP - General 08/24/20 07/06/22 Odalys Escobar FNP [address] [place], [place] [address] PCP - General 07/07/22 documented as of this encounter
--- OUTSIDE RECORDS SUMMARY | 2024-07-30 16:35 | XMS_ITS | Encounter Summary ---
Author Organization [facility] Address [address] [place] [address] Care Team Providers Care Sensor Specialist Name Role Phone Malgorzata Orellana PRELIMINARY SCHOOL PSYCHOLOGIST Primary Care Provider Odalys Escobar Primary Care Provider [phone] Encounter Details Date Type Department Care Team (Late st Contact Info) Description 09/02/2021 Lab Requisition [facility] Pathology & Laboratory Medicine - [facility] [address] [place], [place] [address] Outr Resulting Lab, Provider Social History Tobacco [...] Procedure Name Priority Date/Time Associated Diagnosis Comments ZZCOVID-19 TEST [facility] PCR Today 09/01/2021 15:30 EDT COVID-19 TESTING Routine 09/01/2021 15:3 0 EDT documented in this encounter Results * COVID-19 TEST [facility] PCR (09/01/2021 15:30 EDT) Swab ENTIRE NASOPHARYNX / Unknown 09/01/2021 15:30 EDT 09/02/2021 16:15 EDT Provider Outr Resulting Lab MICROBIOLOGY - GENERAL ORDERABLES [facility] [address] [place] [address] * COVID-19 TESTING (09/01/2021 15:30 EDT) COVID-19 rt-PCR Result Negative Negative 09/03/2021 14:44 EDT [facility] Comment: This test has not been FDA cleared or approved. This test has been authorized by FDA under an EUA for use by authorized laboratories. This test has been authorized only for detection of nucleic acid from 2019-nCoV, not for any other viruses or pathogens. This test is only authorized for the duration of the declaration that circumstances exist justifying the authorization of emergency use of in vitro diagnostic tests for detection and/or diagnosis of 2019-nCoV under section 564(b)(1) of Act, 21 U.S.C ?? 360bbb-3(b) (1), unless the authorization is terminated or revoked sooner. Negative results do not preclude 2019-nCoV infection and should not be used as the sole basis for treatment or other patient management decisions. Negative results must be combined with clinical observations, patient history, and epidemiological information. This test was developed and its performance characteristics determined by [facility]. It has not been cleared or approved by the US Food and Drug Administration. FDA does not require this test to go through premarket FDA review. This test is used for clinical purposes. It should not be regarded as investigational or for research. This laboratory is certified under the Clinical Laboratory Improvement Amendments (CLIA) as qualified to perform high complexity clinical laboratory testing. This test is based on the [facility] COVID-19 Emergency Use Authorization (EUA) assay, with minor modification as defined by the FDA Performed on the Tower59 7 Pro RT-PCR System. Performing Lab [facility] 09/03/2021 14:44 EDT [facility] Swab 09/01/2021 15:3 0 EDT 09/02/2021 16:15 EDT Provider Outr Resulting Lab MICROBIOLOGY - GENERAL ORDERABLES [facility] [address] [place] [address] documented in this encounter Visit Diagnoses Not on filedocumented in this encounter Care Teams Sensor Specialist Relationship Specialty Start Date End Date Malgorzata Orellana, PRELIMINARY SCHOOL PSYCHOLOGIST [address] [place] [address] PCP - General 08/24/20 07/06/22 Odalys Escobar FNP [address] [place], [place] [id number] PCP - General 07/07/22 documented as of this encounter
--- OUTSIDE RECORDS SUMMARY | 2024-07-30 16:35 | XMS_ITS | Encounter Summary ---
Author Organization [facility] Address [address] [place] [address] Care Team Providers Care Permaculture Contractor Name Role Phone Tania Collado PATROL SERGEANT SHERIFF'S OFFICE Primary Care Provider Encounter Details Date Type Department Care Team (Late st Contact Info) Description 06/28/2017 Results Only [facility] [place] [phone] Tania Collado, PATROL SERGEANT SHERIFF'S OFFICE [facility] [place] [address] Social History Tobacco Use Types Packs/Day Years Used Date Smoking Tobacco: Never Assessed Sex and Gender Information Value Date Recorded Sex Assigned at Female 03/07/2022 10:17 EDT Gender Identity Female 03/07/2022 10:17 EDT Sexual Orientation Not on file documented as of this encounter Plan of Treatment Not on file documented as of this encounter Procedures Procedure Name Priority Date/Time Associated Diagnosis Comments PAP TEST- RESULT ONLY Routine 06/28/2017 0:00 EDT documented in this encounter Results * PAP TEST- RESULT ONLY (06/28/2017 0:00 EDT) Pathology Report: CYTOPATHOLOGY REPORT Reports generated via electronic interface contain original data; however they are lacking the format of the original report. Caution should be taken when reading/interpreti ng unformatted reports. Name: ? ROBERT BACH ? Accession #: ? [id number] ? : ? 1975 (Age: 41) ??F ?Collect Date: ? 06/28/2017 ? Location: ? [facility] ? Receive Date: ? 06/30/2017 ? Provider: TANIA COLLADO PATROL SERGEANT SHERIFF'S OFFICE Copy to: ? Final Report SPECIMEN ADEQUACY ? Satisfactory for Evaluation - transformation zone component absent GENERAL CATEGORIZATION ? Negative for Intraepithelial Lesion or Malignancy ?? 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 DAVID Lyons(ASCP) ? Report ??Date: 07/07/2017 15:37 HPV with Pap Test ? Date Ordered: ? 07/07/2017 ? Status: ?? Signed Out ?Date Complete: ? 07/10/2017 ? By: ??System Interface ? Date Reported: ? 07/10/2017 ? Interpretation RESULT: Negative for HPV. No E6 or E7 mRNA is detected from HPV types 16,18,31,33,35, 39,45,51,52,56,58, 59,66, and 68 by foundry helper mediated amplification. Comments Document reviewed and electronically signed by: ? System Interface ? Report date: 07/10/2017 By the signature above, the attending physician certifies that he/she has personally conducted a gross and/or microscopic examination of the described specimens and rendered or confirmed the above diagnosis. End of Report [facility] 06/28/2017 06/30/2017 Tania Colldao NP PATHOLOGY ORDERABLES Performing Organization Address City/State/[facility] Co de Phone Number [facility] [address] [place] [address] documented in this encounter Visit Diagnoses Not on filedocumented in this encounter Care Teams Permaculture Contractor Relationship Specialty Start Date End Date Tania Collado, [place] [address] [place] [address] [place] [phone] PCP - General 02/17/15 08/23/20 documented as of this encounter
--- OUTSIDE RECORDS SUMMARY | 2024-07-30 16:35 | XMS_ITS | Encounter Summary ---
Author Organization [facility] Address [address] [place] [address] Care Team Providers Care Insole Stiffener Name Role Phone Unavailable Primary Care Provider Unavailabl e Encounter Details Date Type Department Care Team (Late st Contact Info) Description 01/24/2001 Results Only [facility] [place] [facility] - Maple conversion [address] [place] [address] Kodak Garcia MD [address] [place] [address] Social History Tobacco Use Types Packs/Day Years [...] Priority Date/Time Associated Diagnosis Comments CYTOPATHOLOGY Routine 01/24/2001 0:00 EST documented in this encounter Results * CYTOPATHOLOGY (01/24/2001 0:00 EST) Pathology Report: CYTOPATHOLOGY REPORT Reports generated via electronic interface contain original data; however they are lacking the format of the original report. Caution should be taken when reading/interpreti ng unformatted reports. Name: ? ROBERT BACH ? Accession #: ? [id number] : ? 1975 (Age: 25) ??F ?Collect Date: ? 01/24/2001 Location: ? [facility] ? Receive Date: ? 01/25/2001 Provider: ?KODAK GARCIA MD Copy to: ? Specimen/Source: ?ThinPrep Pap Test, Cervix/Endocervix Last Menstrual Period: ? February or March 2000 Menstrual/Pregnanc y Status: ? Post Hormonal/Contracep tive Status: ? Orthotricyclen ? SPECIMEN ADEQUACY ? Satisfactory for evaluation. GENERAL CATEGORIZATION ? Within Normal Limits ? Document reviewed and electronically signed by: ? Emma Thomas, ??SCT(ASCP) ? Report Date: ??01/26/2001 11:35 End of Report SUPRIYA [facility]OG[facility] 01/24/2001 01/25/2001 Kodak Garcia MD PATHOLOGY ORDERABLES Performing Organization Address City/State/[facility] Co de Phone Number SUPRIYA VOGEL [address] [place] [address] documented in this encounter Visit Diagnoses Not on filedocumented in this encounter
--- OUTSIDE RECORDS SUMMARY | 2024-07-30 16:35 | XMS_ITS | Encounter Summary ---
Author Organization [facility] Address [address] [place] [address] Care Team Providers Care Raker Buffing Wheel Name Role Phone Malgorzata Orellana OB/GYN PHYSICIAN Primary Care Provider [phone] Odalys Escobar Primary Care Provider [phone] Encounter Details Date Type Department Care Team (Late st Contact Info) Description 08/28/2021 Lab Requisition [facility] Pathology & Laboratory Medicine - [facility] [address] [place], [place] [address] Outr Resulting Lab, Provider Social History Tobacco [...] Comments ZZCOVID-19 TEST [facility] PCR Today 08/27/2021 18:00 EDT COVID-19 TESTING Routine 08/27/2021 18:0 0 EDT documented in this encounter Results * COVID-19 TEST [facility] PCR (08/27/2021 18:00 EDT) Swab ENTIRE NASOPHARYNX / Unknown 08/27/2021 18:00 EDT 08/28/2021 22:13 EDT Provider Outr Resulting Lab MICROBIOLOGY - GENERAL ORDERABLES [facility] [address] [place] [address] * COVID-19 TESTING (08/27/2021 18:00 EDT) COVID-19 rt-PCR Result Negative Negative 08/29/2021 13:59 EDT [facility] Comment: This test has [...] clinical observations, patient history, and epidemiological information. Testing was performed using the lew SARS-CoV-2 assay ([employer] on the Lew 6800 System Performing Lab Lew [address] [facility] Lab 08/29/2021 13:59 EDT [facility] Swab 08/27/2021 18:0 0 EDT 08/28/2021 22:13 EDT Provider Outr Resulting Lab MICROBIOLOGY - GENERAL ORDERABLES [facility] [address] [place] [address] documented in this encounter Visit Diagnoses Not on filedocumented in this encounter Care Teams Raker Buffing Wheel Relationship Specialty Start Date End Date Malgorzata Orellana NP [address] [place] [address] PCP - General 08/24/20 07/06/22 Odalys Escobar FNP [facility] [place] [address] PCP - General 07/07/22 documented as of this encounter
--- OUTSIDE RECORDS SUMMARY | 2024-07-30 16:35 | XMS_ITS | Encounter Summary ---
Author Organization [facility] Address [address] [place] [address] Care Team Providers Care Business Investor Name Role Phone Tania Lee GUN STOCK MAKER Primary Care Provider Malgorzata Orellana GUN STOCK MAKER Primary Care Provider [phone] Odalys Escobar LUMBER PULLER Primary Care Provider Encounter Details Date Type Department Care Team (Late st Contact Info) Description 05/01/2020 Lab Requisition [facility] Pathology & Laboratory Medicine - [address] [address] Outr Resulting Lab, Provider Social History Tobacco [...] Procedure Name Priority Date/Time Associated Diagnosis Comments T3, TOTAL Routine 05/01/2020 10:00 EDT documented in this encounter Results * T3, TOTAL (05/01/2020 10:00 EDT) T3, Total 165 97 - 169 ng/dL 05/01/2020 17:08 EDT [facility] Blood VENOUS BLOOD / Unknown 05/01/2020 10:00 EDT 05/01/2020 16:22 EDT Provider Outr Resulting Lab CHEMISTRY & BLOOD GAS ORDERABLES [facility] [address] [place] [address] documented in this encounter Visit Diagnoses Not on filedocumented in this encounter Care Teams Business Investor Relationship Specialty Start Date End Date Tania Lee NP [address] [place] [address] [place] [phone] PCP - General 02/17/15 08/23/20 Malgorzata Orellana NP [address] [place] [address] PCP - General 08/24/20 07/06/22 Odalys Escobar FNP [address] [place], [place] [address] [address] PCP - General 07/07/22 documented as of this encounter
--- OUTSIDE RECORDS SUMMARY | 2024-07-30 16:35 | XMS_ITS | Encounter Summary ---
Author Organization [facility] Address [address] [place] [address] Care Team Providers Care Environmental Health And Safety Leader Name Role Phone Malgorzata Orellana CEMENT HANDLER Primary Care Provider [phone] Odalys Escobar Primary Care Provider [phone] Encounter Details Date Type Department Care Team (Late st Contact Info) Description 02/08/2021 Lab Requisition [facility] Pathology & Laboratory Medicine - [facility] [address] [place] [address] Winsome Bynum, SERVICE OFFICER [address] [place] [address] [place] [address] Encounter for other general examination Social History [...] Name Priority Date/Time Associated Diagnosis Comments PAP TEST Today 02/04/2021 14:00 EDT Encounter for other general examination HPV DNA DETECTION WITH GENOTYPING, PCR Today 02/04/2021 14:00 EDT Encounter for other general examination documented in this encounter Results * HUMAN PAPILLOMAVIRUS (HPV) DETECTION-HIGH RISK TYPES (02/04/2021 14:00 EDT) HPV other High Risk types, PCR Negative Negative 02/17/2021 9:58 EDT [facility] Comment:No E6 or E7 mRNA is detected from HPV types 16,18,31,33,35,39,45,51,52,56,58,59,66, and 68 by experimental machinist mediated amplification. Papanicolaou smear specimen (specimen) CERVIX UTERI STRUCTURE / Unknown 02/04/2021 14:00 EDT 02/15/2021 13:28 EDT Winsome Bynum SERVICE OFFICER MICROBIOLOGY - GENER AL ORDERABLES [facility] [address] [place] [address] * PAP TEST (02/04/2021 14:00 EDT) Specimens A. Cervix and/or Endocervix , ThinPrep Imaging System with Manual Evaluation 02/17/2021 9:58 EDT [facility] Specimen Adequacy Satisfactory for Evaluation - transformation zone component present 02/17/2021 9:58 EDT [facility] General Categorization Negative for intraepithelial lesion or malignancy 02/17/2021 9:58 EDT [facility] Attestation . 02/17/2021 9:58 T [facility] at 0958 Clinical History See below 02/18/20 9:58 EDT [facility] HPV The result for the Human Papillomavirus (HPV) Detection-High Risk Types is Negative. No E6 or E7 mRNA is detected from HPV types 16,18,31,33,35,39 ,45,51,52,56,58,5 9,66, and 68 by experimental machinist mediated amplification.Che ting was performed on specimen [id number] and was resulted on 02/16/2021 1536 EDT by CRUZITO, LAB INSTRUMENT RESULTS IN 02/17/2021 9:58 EDT [facility] Performing Lab [facility] 02/17/2021 9:58 EDT [facility] Scanned Images 02/17/2021 9:58 EDT [facility] Papanicolaou smear specimen (specimen) CERVIX UTERI STRUCTURE / Unknown 02/04/2021 14:00 EDT 02/08/2021 12:18 EDT Winsome Bynum SERVICE OFFICER PATHOLOGY ORDERABLES [facility] [address] [place] [address] documented in this encounter Visit Diagnoses Diagnosis Encounter for other general examination documented in this encounter Care Teams Environmental Health And Safety Leader Relationship Specialty Start Date End Date Malgorzata Orellana, LLOYD [address] [place] [address] PCP - General 08/24/20 07/06/22 Odalys [place] [address] [place] [address] PCP - General 07/07/22 documented as of this encounter
--- OUTSIDE RECORDS SUMMARY | 2024-07-30 16:35 | XMS_ITS | Encounter Summary ---
Author Organization [facility] Address [address] [place] [address] Care Team Providers Care Instructor Tap Dancing Name Role Phone Unavailable Primary Care Provider Unavailabl e Encounter Details Date Type Department Care Team (Late st Contact Info) Description 05/10/2000 Results Only [facility] - Maple conversion [address] [place] [address] Winsome Bynum, [facility] [address] [place] [address] [place] [phone] Social History Tobacco Use Types Packs/Day Years [...] Priority Date/Time Associated Diagnosis Comments CYTOPATHOLOGY Routine 05/10/2000 0:00 EDT documented in this encounter Results * CYTOPATHOLOGY (05/10/2000 0:00 EDT) Pathology Report: CYTOPATHOLOGY REPORT Reports generated via electronic interface contain original data; however they are lacking the format of the original report. Caution should be taken when reading/interpreti ng unformatted reports. Name: ? ROBERT BACH ? Accession #: ? [id number] : ? 1975 (Age: 24) ??F ?Collect Date: ? 05/10/2000 Location: ? [facility] ? Receive Date: ? 05/12/2000 Provider: ?WINSOME BYNUM AIR BRUSH OPERATOR Copy to: ? Specimen/Source: ?ThinPrep Pap Test, Cervix/Endocervix Last Menstrual Period: ? Menstrual/Pregnanc y Status: ? SPECIMEN ADEQUACY ? Satisfactory for evaluation. GENERAL CATEGORIZATION ? Within Normal Limits ? Document reviewed and electronically signed by: ? Emma Thomas, ??SCT(ASCP) ? Report Date: ??05/15/2000 15:12 End of Report SUPRIYA VOGEL 05/10/2000 05/12/2000 Winsome Bynum AIR BRUSH OPERATOR PATHOLOGY ORDERABLES [facility]OGEL [address] [place] [address] documented in this encounter Visit Diagnoses Not on filedocumented in this encounter
--- OUTSIDE RECORDS SUMMARY | 2024-07-30 16:35 | XMS_ITS | Encounter Summary ---
Author Organization [facility] Address [address] [place] [address] Care Team Providers Care Director Of Sales And Marketing Name Role Phone Tania Lee CLOTH CHECKER Primary Care Provider Encounter Details Date Type Department Care Team (Latest Contact Info) Description 03/26/2019 10:24 EDT - 03/26/2019 23:59 EDT Hospital Encounter [address] [address] Unknown, Provider, Discharge Disposition: Home or Self [...] on filedocumented in this encounter Care Teams Director Of Sales And Marketing Relationship Specialty Start Date End Date Tania Lee NP [address] [place] [address] [place] [phone] PCP - General 02/17/15 08/23/20 documented as of this encounter
--- OUTSIDE RECORDS SUMMARY | 2024-07-30 16:35 | XMS_ITS | Encounter Summary ---
Author Organization [facility] Address [address] [place] [address] Care Team Providers Care Peer Educator Name Role Phone Malgorzata Orellana FITNESS MANAGEMENT DIRECTOR Primary Care Provider [phone] Odalys Escobar Primary Care Provider [phone] Encounter Details Date Type Department Care Team (Late st Contact Info) Description 08/24/2020 Lab Requisition [facility] Pathology & Laboratory Medicine - [facility] [address] [place] [address] Emerson Hernandez MD [address] [place] [phone] Abnormal weight loss; Diarrhea, unspecified; Nausea with vomiting, unspecified; Other fecal abnormalities Social History Tobacco Use Types Packs/Day Years [...] Date/Time Associated Diagnosis Comments SURGICAL PATHOLOGY Today 08/24/2020 8: 47 EDT Abnormal weight loss Diarrhea, unspecified Nausea with vomiting, unspecified Other fecal abnormalities documented in this encounter Results * SURGICAL PATHOLOGY (08/24/2020 8:47 EDT) Final Diagnosis A. DUODENUM, BIOPSY: - Small intestinal mucosa with no significant diagnostic abnormality. B. DUODENUM, BULB, BIOPSY: - Duodenal mucosa with no significant diagnostic abnormality. C. STOMACH, BODY, BIOPSY: - Fundic mucosa with no significant diagnostic abnormality. - Negative for Helicobacter pylori microorganisms on H&E stained sections. D. COLON, RANDOM, BIOPSY: - Colonic mucosa with no significant diagnostic abnormality. E. RECTUM, POLYP, BIOPSY: - Hyperplastic polyp. - Deeper sections x3 examined. 08/26/2020 12:30 [facility] Attestation By the signature below, the attending physician certifies that they have 1) personally conducted a gross and/or microscopic examination of the described specimen(s), and/or personally interpreted the results of laboratory testing of the described specimen(s), and 2) personally rendered or confirmed the above diagnosis. 08/26/2020 12:30 [facility] at 1230 Clinical History Diverticulosis; Rectal polyp; R63.4; R19.7; R11.2; R19.5 08/26/2020 12:30 [facility] Gross Description A. Received in formalin labelled with proper patient identification (initials A, N) and Bx duodenum are 2 fragments of prieto soft tissue (0.2 x 0.2 x 0.2 cm and 0.4 x 0.2 x 0.2 cm). The specimen is entirely submitted in A1. B. Received in formalin labelled with proper patient identification (initials A, N) and Bx duodenal bulb is a single fragment of prieto soft tissue (0.3 x 0.2 x 0.2 cm). The specimen is entirely submitted in B1. C. Received in formalin labelled with proper patient identification (initials A, N) and Bx gastric antrum +body is a single fragment of prieto soft tissue (0.3 x 0.2 x 0.2 cm). The specimen is entirely submitted in C1. D. Received in formalin labelled with proper patient identification (initials A, N) and random colon Bx are 2 fragments of prieto-yellow soft tissue (0.2 x 0.2 x 0.2 cm and 0.5 x 0.2 x 0.2 cm). The specimen is entirely submitted in D1. E. Received in formalin labelled with proper patient identification (initials A, N) and rectal polyp is a single fragment of prieto soft tissue (0.2 x 0.2 x 0.2 cm). The specimen is entirely submitted in E1. JACOBY AVILES(ASCP) 08/25/2020 9:02 08/26/2020 12:30 EDT [facility] Performing Lab [facility] 08/26/2020 12:30 EDT [facility] Scanned Images 08/26/2020 12:30 EDT [facility] Tissue SPECIMEN FROM RECTUM / Unknown 08/24/2020 8:47 EDT 08/24/2020 22:56 EDT Tissue specimen (specimen) STRUCTURE OF SMALL INTESTINE / Unknown 08/24/2020 8:47 EDT 08/24/2020 22:58 EDT Tissue specimen (specimen) STOMACH STRUCTURE / Unknown 08/24/2020 8:47 EDT 08/24/2020 22:58 EDT Tissue specimen (specimen) COLON STRUCTURE / Unknown 08/24/2020 8:47 EDT 08/24/2020 22:58 EDT Tissue specimen (specimen) SPECIMEN FROM RECTUM / Unknown 08/24/2020 8:47 EDT 08/24/2020 22:58 EDT Emerson Hernandez MD PATHOLOGY ORD ERABLES [facility] [address] [place] [address] documented in this encounter Visit Diagnoses Diagnosis Abnormal weight loss Loss of weight Diarrhea, unspecified Nausea with vomiting, unspecified Other fecal abnormalities documented in this encounter Care Teams Peer Educator Relationship Specialty Start Date End Date Malgorzata Orellana NP [address] [place] [phone] PCP - General 08/24/20 07/06/22 Odalys Escobar FNP [address] [place], [place] [id number] PCP - General 07/07/22 documented as of this encounter
--- OUTSIDE RECORDS SUMMARY | 2024-07-30 16:35 | XMS_ITS | Encounter Summary ---
Author Organization [facility] Address [address] [place] [address] Care Team Providers Care Camera Maker Name Role Phone Tania Lee CHAUFFEUR Primary Care Provider [phone] Malgorzata Orellana CHAUFFEUR Primary Care Provider [phone] Odalys Escobar STRUCTURAL STEEL DETAILER Primary Care Provider Encounter Details Date Type Department Care Team (Late st Contact Info) Description 06/26/2020 Lab Requisition [facility] Pathology & Laboratory Medicine - [facility] [address] [place], [place] [id number] Outr Resulting Lab, Provider Social History Tobacco [...] Procedure Name Priority Date/Time Associated Diagnosis Comments CELIAC DISEASE PANEL Today 06/26/2020 12:35 EDT HOLD SST Today 06/26/2020 12:35 EDT HOLD SST Today 06/26/2020 12:35 EDT THYROPEROXIDASE ANTIBODY Today 06/26/2020 12:35 EDT T3, TOTAL Today 06/26/2020 12:35 EDT documented in this encounter Results * HOLD SST (06/26/2020 12:35 EDT) Hold Hold 06/26/2020 22:01 EDT [facility] Blood VENOUS BLOOD / Unknown 06/26/2020 12:35 EDT 06/26/2020 20:47 EDT Provider Outr Resulting Lab LAB INFO SER VICE AND SUPPORT & PHONE RESULT [facility] [address] [place] [address] * HOLD SST (06/26/2020 12:35 EDT) Hold Hold 06/26/2020 22:01 EDT [facility] Blood VENOUS BLOOD / Unknown 06/26/2020 12:35 EDT 06/26/2020 20:47 EDT Provider Outr Resulting Lab LAB INFO SER VICE AND SUPPORT & PHONE RESULT Performing Organization Address City/[facility]/ZIP Co de Phone Number [facility] [address] [place] [address] * T3, TOTAL (06/26/2020 12:35 EDT) T3, Total 145 97 - 169 ng/dL 06/26/2020 23:56 EDT [facility] Blood VENOUS BLOOD / Unknown 06/26/2020 12:35 EDT 06/26/2020 20:47 EDT Provider Outr Resulting Lab CHEMISTRY & BLOOD GAS ORDERABLES Performing Organization Address City/[facility]/ZIP Co de Phone Number [facility] [address] [place] [address] * THYROPEROXIDASE ANTIBODY (06/26/2020 12:35 EDT) Pathologist [facility] Thyroperoxidase Ab <28 <=60 U/mL 2019 9:32 EDT [facility] Blood VENOUS BLOOD / Unknown 06/26/2020 12:35 EDT 06/26/2020 20:47 EDT Provider Outr Resulting Lab CHEMISTRY & BLOOD GAS ORDERABLES Performing Organization Address [facility] de Phone Number [facility] [address] [place] [address] * CELIAC DISEASE PANEL (06/26/2020 12:35 EDT) Tissue Transglutaminase Antibody IGA <1.2 <4.0 U/mL 06/29/2020 15:13 EDT [facility] Comment: A negative result may be due to IgA deficiency and does not rule out celiac disease. ? Negative: ??<4.0 U/mL ? Weak Positive: ??4.0 - 10.0 U/mL ? Positive: ??>10.0 U/mL Results were obtained with the [employer] QUANTA Lite R h-tTG IgA MARIBELL assay on the Fylet DSX. IgA 108 85 - 499 mg/dL 06/29/2020 15:13 EDT [facility] Celiac Disease Interpretation Negative Serology. Celiac disease unlikely. Approximately 10% of patients with celiac disease are seronegative. Patients who are already adhering to a gluten-free diet may also be seronegative. If celiac disease is highly clinically suspected, referral to gastroenterology for additional evaluation is recommended. 06/29/2020 15:13 EDT [facility] Blood VENOUS BLOOD / Unknown 06/26/2020 12:35 EDT 06/26/2020 20:47 EDT Provider Outr Resulting Lab IMMUNOLOGY A ND SEROLOGY ORDERABLES Performing Organization Address [facility] Co de Phone Number [facility] [address] [place] [address] documented in this encounter Visit Diagnoses Not on filedocumented in this encounter Care Teams Camera Maker Relationship Specialty Start Date End Date Tania Lee NP [address] [place] [address] [place] [address] PCP - General 02/17/15 08/23/20 Malgorzata Orellana NP [address] [place] [address] PCP - General 08/24/20 07/06/22 Odalys Escobar FNP [address] [place] [address] [address] [facility] [place] [address] PCP - General 07/07/22 documented as of this encounter
--- OUTSIDE RECORDS SUMMARY | 2024-07-30 16:35 | XMS_ITS | Encounter Summary ---
Author Organization [facility] Address [address] [place] [address] Care Team Providers Care Wood Turner Name Role Phone Malgorzata Orellana GAS TURBINE MECHANIC Primary Care Provider [phone] Odalys Escobar Primary Care Provider [phone] Encounter Details Date Type Department Care Team (Late st Contact Info) Description 02/04/[address] [facility] Pathology & Laboratory Medicine - [facility] [address] [place], [place] [address] Outr Resulting Lab, Provider Social History Tobacco [...] Procedure Name Priority Date/Time Associated Diagnosis Comments CHLAMYDIA/N. GONORRHOEAE AMPLIFIED NUCLEIC ACID Routine 02/04/2021 14:00 EDT documented in this encounter Results * CHLAMYDIA/N. GONORRHOEAE AMPLIFIED RNA (02/04/2021 14:00 EDT) Neisseria gonorrhoeae Result Negative Negative 02/05/2021 14:[address] [facility] Chlamydia trachomatis Result Negative Negative 02/05/2021 14:[address] [facility] Swab ENTIRE ENDOCERVIX / Unknown 02/04/2021 14:00 EDT 02/04/2021 20:51 EDT Provider Outr Resulting Lab MICROBIOLOGY - GENERAL ORDERABLES Performing Organization Address City/State/[facility] Co de Phone Number [facility] [address] [place] [address] documented in this encounter Visit Diagnoses Not on filedocumented in this encounter Care Teams Wood Turner Relationship Specialty Start Date End Date Malgorzata Orellana, [address]LOYD [address] [place] [address] PCP - General 08/24/20 07/06/22 Odalys Escobar [place] [address] [place] [address] PCP - General 07/07/22 documented as of this encounter
--- OUTSIDE RECORDS SUMMARY | 2024-07-30 16:35 | XMS_ITS | Encounter Summary ---
Author Organization [facility] Address [address] [place] [address] Care Team Providers Care Weaver Needle Loom Name Role Phone Tania Lee STAFF DEVELOPER Primary Care Provider Malgorzata Orellana STAFF DEVELOPER Primary Care Provider Odalys Escobar EMPLOYMENT EDUCATIONAL COORD Primary Care Provider Encounter Details Date Type Department Care Team (Late st Contact Info) Description 01/16/2020 Lab Requisition [facility] Pathology & Laboratory Medicine - [address] [address] Unknown, Provider, Social History Tobacco Use Types Packs/Day Years [...] Date/Time Associated Diagnosis Comments T3, TOTAL Routine 01/16/2020 8:40 EST documented in this encounter Results * T3, TOTAL (01/16/2020 8:40 EST) T3, Total 145 97 - 169 ng/dL 01/16/2020 16:53 EST [facility] Blood VENOUS BLOOD / Unknown 01/16/2020 8:40 EST 01/16/2020 16:12 EST Provider Unknown CHEMISTRY & BLOOD GA S ORDERABLES [facility] [address] [place] [address] documented in this encounter Visit Diagnoses Not on filedocumented in this encounter Care Teams Weaver Needle Loom Relationship Specialty Start Date End Date Tania Lee, STAFF DEVELOPER [address] [place] [address] [place] [phone] PCP - General 02/17/15 08/23/20 Malgorzata Orellana NP [address] [place] [address] PCP - General 08/24/20 07/06/22 Odalys Escobar FNP [address] [place] [address] [place] [address] PCP - General 07/07/22 documented as of this encounter
--- OUTSIDE RECORDS SUMMARY | 2024-07-30 16:35 | XMS_ITS | Encounter Summary ---
Author Organization [facility] Address [address] [place] [address] Care Team Providers Care Marketing Systems Manager Name Role Phone Malgorzata Orellana CARPENTER/LABOR Primary Care Provider [phone] Odalys Escobar Primary Care Provider [phone] Reason for Visit * Reason Onset Date Comments Appointment Related 03/07/2022 Encounter Details Date Type Department Care Team (Late st Contact Info) Description 03/07/2022 Telephone [facility] Endocrinology - [address] [address] Ros Cornelius MD PhD [address] [place] [address] [place] [phone] Appointment Related Social History Tobacco Use Types Packs/Day Years Used Date Smoking Tobacco: Never Assessed Interpersonal Safety Answer Date Record ed Physically Hurt Never 06/14/2020 Verbally Threaten Not on file 06/14/2020 Sex and Gender Information Value Date Recorded Sex Assigned at Female 03/07/2022 10:17 EDT Gender Identity Female 03/07/2022 10:17 EDT Sexual Orientation Not on file documented as of this encounter Miscellaneous Notes * Telephone Encounter - Thierno Rodriguez - 03/07/2022 0807 EDT Patient called asking if she had an appt today with Dr Cornelius. Patent Drafter looked and advised that she does not and that it is 07/07. She said that someone had celled her about a cancellation and she thought that they switched her appt to today. Patent Drafter sees nothing about that and checked the schedule butthere are no openings for today unless something is being held by scheduling. Please check and call patient to advise if appropriate. documented in this encounter Plan of Treatment Not on file documented as of this encounter Visit Diagnoses Not on filedocumented in this encounter Care Teams Marketing Systems Manager Relationship Specialty Start Date End Date Malgorzata Orellana, CARPENTER/LABOR [address] [place] [address] PCP - General 08/24/20 07/06/22 Odalys Escobar F[place] [address] PCP - General 07/07/22 documented as of this encounter
--- OUTSIDE RECORDS SUMMARY | 2024-07-30 16:35 | XMS_ITS | Encounter Summary ---
Author Organization [facility] Address [address] [place] [address] Care Team Providers Care Paper And Pulp Mill Worker Name Role Phone Malgorzata Orellana FOOD AND DRUG INSPECTOR Primary Care Provider [phone] Odalys Escobar Primary Care Provider [phone] Encounter Details Date Type Department Care Team (Late st Contact Info) Description 11/26/2021 Lab Requisition [facility] Pathology & Laboratory Medicine - [facility] [address] [place], [place] [address] Outr Resulting Lab, Provider Social History Tobacco [...] Procedure Name Priority Date/Time Associated Diagnosis Comments HEPATITIS C AB W REFLEX TO HCV RNA BY PCR Routine 11/26/2021 10:11 EST documented in this encounter Results * HEPATITIS C AB W REFLEX TO HCV RNA BY PCR (11/26/2021 10:11 EST) Hep C Antibody Negative Negative 11/29/2021 10:57 EST [facility] Blood VENOUS BLOOD / Unknown 11/26/2021 10:11 EST 11/26/2021 21:35 EST Provider Outr Resulting Lab CHEMISTRY & BLOOD GAS ORDERABLES [facility] [address] [place] [address] documented in this encounter Visit Diagnoses Not on filedocumented in this encounter Care Teams Paper And Pulp Mill Worker Relationship Specialty Start Date End Date Malgorzata Orellana NP [address] [place] [address] PCP - General 08/24/20 07/06/22 Odalys Escobar [place] [address] [place] [address] PCP - General 07/07/22 documented as of this encounter
--- OUTSIDE RECORDS SUMMARY | 2024-07-30 16:35 | XMS_ITS | Encounter Summary ---
Author Organization [facility] Address [address] [place] [address] Care Team Providers Care Jewellery Designer Name Role Phone Malgorzata Orellana TOOL MAINTENANCE WORKER Primary Care Provider [phone] Odalys Escobar Primary Care Provider [phone] Encounter Details Date Type Department Care Team (Late st Contact Info) Description 04/02/2022 Lab Requisition [facility] Pathology & Laboratory Medicine - [facility] [address] [place] [address] Outr Resulting Lab, Provider Social History Tobacco [...] Comments ZZCOVID-19 TEST [facility] PCR Today 04/01/2022 9:24 EDT COVID-19 TESTING Routine 04/01/2022 9:24 EDT documented in this encounter Results * COVID-19 TEST [facility] PCR (04/01/2022 9:24 EDT) Swab 04/01/2022 9:24 EDT 04/02/2022 21:33 EDT Provider Outr Resulting Lab MICROBIOLOGY - GENERAL ORDERABLES Performing Organization Address City/[facility]/ZIP Co de Phone Number [facility] [address] [place] [address] * COVID-19 TESTING (04/01/2022 9:24 EDT) COVID-19 rt-PCR Result Negative Negative 04/03/2022 1:51 EDT [facility] Comment: This test has [...] clinical observations, patient history, and epidemiological information. Performed on the [employer] Fusion instrument Performing Lab [facility] 04/03/2022 1:51 EDT [facility] Swab 04/01/2022 9:24 EDT 04/02/2022 21:33 EDT Provider Outr Resulting Lab MICROBIOLOGY - GENERAL ORDERABLES [facility] [address] [place] [address] documented in this encounter Visit Diagnoses Not on filedocumented in this encounter Care Teams Jewellery Designer Relationship Specialty Start Date End Date Malgorzata Orellana NP [address] [place] [address] PCP - General 08/24/20 07/06/22 Odalys Escobar [place]NP [facility] [place] [address] PCP - General 07/07/22 documented as of this encounter
--- OUTSIDE RECORDS SUMMARY | 2024-07-30 16:35 | XMS_ITS | Encounter Summary ---
Author Organization [facility] Address [address] [place] [address] Care Team Providers Care Dye House Worker Name Role Phone Arnaud Collado SNUFF DRIER Primary Care Provider [phone] Encounter Details Date Type Department Care Team (Late st Contact Info) Description 02/16/2015 Results Only [facility]- [facility] [phone] Carla Merrill MD [address] [place] [address] Social History Tobacco Use Types Packs/Day Years [...] Date/Time Associated Diagnosis Comments SURGICAL PATHOLOGY Routine 02/16/2015 9:09 EDT documented in this encounter Results * SURGICAL PATHOLOGY (02/16/2015 9:09 EDT) Pathology Report: SURGICAL PATHOLOGY REPORT Reports generated via electronic interface contain original data; however they are lacking the format of the original report. Caution should be taken when reading/interpret ing unformatted reports. Name: ? ROBERT BACH ? Accession #: ? [id number] ? : ? 1975 (Age: 39) ??F ? Collect Date: ? 02/16/2015 ? Location: ? [facility] ? Receive Date: ? 02/16/2015 ? Provider: CARLA MERRILL MD Copy to: ARNAUD COLLADO SNUFF DRIER ? Final Pathologic Diagnosis: GALLBLADDER, CHOLECYSTECTOMY: - [...] diameter). ? The serosa is pink-lester and smooth. The mucosa is prieto-brown and velvety with focal yellow stippling and the wall is 0.2 cm in thickness. The cystic duct lumen is patent. The cystic duct margin is inked blue. Multiple fragmented yellow-brown choleliths are present, ranging from less than 0.1 cm to 0.8 cm in greatest dimension. ? Two applications sales representative sections and the inked en face cystic duct margin are submitted in 1. Mo Toney 02/17/2015 01:46 PM End of Report [facility] 02/16/2015 9:09 EDT 02/16/2015 9:09 EDT Ne-Pebbles Merrill MD PATHOLOGY ORDERA BRIAN [facility] [address] [place] [address] documented in this encounter Visit Diagnoses Not on filedocumented in this encounter Care Teams Dye House Worker Relationship Specialty Start Date End Date Arnaud Collado, SNUFF DRIER [facility] [place] [phone] PCP - General 02/17/15 08/23/20 documented as of this encounter
--- OUTSIDE RECORDS SUMMARY | 2024-07-30 16:35 | XMS_ITS | Encounter Summary ---
Author Organization [facility] Address [address] [place] [address] Care Team Providers Care Electrical Cad Designer Name Role Phone Unavailable Primary Care Provider Unavailabl e Encounter Details Date Type Department Care Team (Late st Contact Info) Description 06/17/2014 Results Only [facility]- [facility] [phone] Tania Collado, WEED THINNER [address] [place] [address] Social History Tobacco Use Types [...] Diagnosis Comments PAP TEST- RESULT ONLY Routine 06/17/2014 0:00 EDT documented in this encounter Results * PAP TEST- RESULT ONLY (06/17/2014 0:00 EDT) Pathology Report: CYTOPATHOLOGY REPORT Reports generated via electronic interface contain original data; however they are lacking the format of the original report. Caution should be taken when reading/interpreti ng unformatted reports. Name: ? ROBERT BACH ? Accession #: ? [id number] ? : ? 1975 (Age: 38) ??F ?Collect Date: ? 06/17/2014 ? Location: ? [facility] ? Receive Date: ? 06/18/2014 ? Provider: TANIA COLLADO WEED THINNER Copy to: ? Final Report SPECIMEN ADEQUACY ? Satisfactory for Evaluation - transformation zone component present GENERAL CATEGORIZATION ? Negative for Intraepithelial Lesion or Malignancy ?? Last Menstrual Period: 06/09/14 Specimen/Source: ??Pap Test, Cervix/Endocervix, ThinPrep Imaging System with manual evaluation Document reviewed and electronically signed by: ? DAVID Lyons(ASCP) ? Report ??Date: 06/23/2014 14:22 HPV with Pap Test ? Date Ordered: ? 06/23/2014 ? Status: ?? Signed Out ?Date Complete: ? 06/24/2014 ? By: ??System Interface ? Date Reported: ? 06/24/2014 ? Interpretation RESULT: Negative for HPV. No E6 or E7 mRNA is detected from HPV types 16,18,31,33,35, 39,45,51,52,56,58, 59,66, and 68 by transcription specialist mediated amplification. Comments Document reviewed and electronically signed by: ? System Interface ? Report date: 06/24/2014 By the signature above, the attending physician certifies that he/she has personally conducted a gross and/or microscopic examination of the described specimens and rendered or confirmed the above diagnosis. End of Report [facility] 06/17/2014 06/18/2014 Tania Collado NP PATHOLOGY ORDERABLES Performing Organization Address City/State/[facility] Co de Phone Number [facility] [address] [place] [address] documented in this encounter Visit Diagnoses Not on filedocumented in this encounter
--- OUTSIDE RECORDS SUMMARY | 2024-07-30 16:35 | XMS_ITS | Encounter Summary ---
Author Organization [facility] Address [address] [place] [address] Care Team Providers Care Lawn Care Specialist Name Role Phone Malgorzata Orellana LAY OUT DRAFTER Primary Care Provider [phone] Odalys Escobar Primary Care Provider [phone] Encounter Details Date Type Department Care Team (Late st Contact Info) Description 11/26/2021 Lab Requisition [facility] Pathology & Laboratory Medicine - [facility] [address] [place], [place] [address] Outr Resulting Lab, Provider Social History Tobacco [...] 1/2 ANTIGEN AND ANTIBODY, 4TH GENERATION Routine 11/26/2021 10:11 EST documented in this encounter Results * HIV 1/2 ANTIGEN AND ANTIBODY, 4TH GENERATION (11/26/2021 10:11 EST) HIV 1 and 2 Antibody/p24 Antigen, 4th Generation Negative Negative 11/27/2021 12:14 EST [facility] Comment:If acute HIV-1 infec tion is suspected in a high risk patient, submit plasma specimen for HIV-1 RNA quantitation test. Blood VENOUS BLOOD / Unknown 11/26/2021 10:11 EST 11/26/2021 21:35 EST Narrative [facility] - 11/27/2021 12:14 EST Fourth Generation assay performed on the Siemens Centaur XPT. Provider Outr Resulting Lab IMMUNOLOGY A ND SEROLOGY ORDERABLES [facility] [address] [place] [address] documented in this encounter Visit Diagnoses Not on filedocumented in this encounter Care Teams Lawn Care Specialist Relationship Specialty Start Date End Date Malgorzata Orellana, LAY OUT DRAFTER [address] [place] [address] PCP - General 08/24/20 07/06/22 [address]ys Escobar [place] [place] [address] PCP - General 07/07/22 documented as of this encounter
--- OUTSIDE RECORDS SUMMARY | 2024-07-30 16:35 | XMS_ITS | Encounter Summary ---
Author Organization [facility] Address [address] [place] [address] Care Team Providers Care Can Marker Name Role Phone Tania Lee BOILER HOUSE OPERATOR Primary Care Provider [phone] Malgorzata Orellana BOILER HOUSE OPERATOR Primary Care Provider [phone] Odalys Escobar LOGGING TRUCK DRIVER Primary Care Provider Encounter Details Date Type Department Care Team (Late st Contact Info) Description 10/24/2019 Lab Requisition [facility] Pathology & Laboratory Medicine - [address] [address] Unknown, Provider, Social History Tobacco Use Types [...] Date/Time Associated Diagnosis Comments T3, TOTAL Routine 10/24/2019 10:10 EST documented in this encounter Results * T3, TOTAL (10/24/2019 10:10 EST) T3, Total 152 97 - 169 ng/dL 10/24/2019 23:03 EST [facility] Blood VENOUS BLOOD / Unknown 10/24/2019 10:10 EST 10/24/2019 21:39 EST Provider Unknown CHEMISTRY & BLOOD GA S ORDERABLES [facility] [address] [place] [address] documented in this encounter Visit Diagnoses Not on filedocumented in this encounter Care Teams Can Marker Relationship Specialty Start Date End Date Tania Lee, BOILER HOUSE OPERATOR [address] [place] [address] [place] [phone] PCP - General 02/17/15 08/23/20 Malgorzata Orellana NP [address] [place] [address] PCP - General 08/24/20 07/06/22 Odalys Escobar FNP [address] [place] [address] [place] [address] PCP - General 07/07/22 documented as of this encounter
--- OUTSIDE RECORDS SUMMARY | 2024-07-30 16:35 | XMS_ITS | Encounter Summary ---
Author Organization [facility] Address [address] [place] [address] Care Team Providers Care Childcare Aide Name Role Phone ConormadhuTania DRY WALL PLASTERER Primary Care Provider Malgorzata Orellana DRY WALL PLASTERER Primary Care Provider [phone] Odalys Escobar CHEF CONCIERGE Primary Care Provider [phone] Encounter Details Date Type Department Care Team (Late st Contact Info) Description 05/22/2020 Lab Requisition [facility] Pathology & Laboratory Medicine - [facility] [address] [place], [place] [id number] Outr Resulting Lab, Provider Social History Tobacco [...] Procedure Name Priority Date/Time Associated Diagnosis Comments LYME AB Routine 05/22/2020 12:10 EDT RHEUMATOID FACTOR Routine 05/22/2020 12: 10 EDT ANTI NUCLEAR AB (PATRICK), IFA Routine 05/22/2020 12:10 EDT documented in this encounter Results * LYME AB (05/22/2020 12:10 EDT) Lyme Ab Negative Negative 05/25/2020 12:25 EDT [facility] Comment: New 3rd generation assay in use 04/22/2020 Blood VENOUS BLOOD / Unknown 05/22/2020 12:10 EDT 05/22/2020 16:01 EDT Provider Outr Resulting Lab IMMUNOLOGY A ND SEROLOGY ORDERABLES Performing Organization Address City/[facility]/ZIP Co de Phone Number [facility] [address] [place] [address] * RHEUMATOID FACTOR (05/22/2020 12:10 EDT) [facility] Rheumatoid Factor <8.6 <12.0 IU/mL 05/22/2020 16:19 EDT [facility] Blood VENOUS BLOOD / Unknown 05/22/2020 12:10 EDT 05/22/2020 16:01 EDT Provider Outr Resulting Lab CHEMISTRY & BLOOD GAS ORDERABLES Performing Organization Address [facility] Co de Phone Number [facility] [address] [place] [address] * ANTI NUCLEAR AB (PATRICK), IFA (05/22/2020 12:10 EDT) Pathologist [facility] PATRICK Interpretation Negative Negative 2019 15:29 EDT [facility] Blood VENOUS BLOOD / Unknown 05/22/2020 12:10 EDT 05/22/2020 16:01 EDT Narrative [facility] - 05/25/2020 15:29 EDT Results were obtained with the INOVA NOVA Lite HEp-2 PATRICK Kit by indirect immunofluorescence. Provider Outr Resulting Lab IMMUNOLOGY A ND SEROLOGY ORDERABLES Performing Organization Address City/[facility] Co de Phone Number [facility] [address] [place] [address] documented in this encounter Visit Diagnoses Not on filedocumented in this encounter Care Teams Childcare Aide Relationship Specialty Start Date End Date Tania Lee NP [address] [place] [address] [place] [phone] PCP - General 02/17/15 08/23/20 Malgorzata Orellana NP [address] [place] [address] PCP - General 08/24/20 07/06/22 Odalys Escobar FNP [facility] [place] [address] PCP - General 07/07/22 documented as of this encounter
--- OUTSIDE RECORDS SUMMARY | 2024-07-30 16:35 | XMS_ITS | Encounter Summary ---
Author Organization [facility] Address [address] [place] [address] Care Team Providers Care Supervisor Briar Shop Name Role Phone Tania Lee STATUE CARVER Primary Care Provider Malgorzata Orellana STATUE CARVER Primary Care Provider [phone] Odalys Escobar CHILDCARE WORKER Primary Care Provider [phone] Encounter Details Date Type Department Care Team (Late st Contact Info) Description 06/29/2020 Lab Requisition [facility] Pathology & Laboratory Medicine - [address] [id number] Outr Resulting Lab, Provider Social History Tobacco [...] Comments FECAL BACTERIAL PATHOGENS BY PCR Routine 06/29/2020 8:32 EDT documented in this encounter Results * FECAL BACTERIAL PATHOGENS BY PCR (06/29/2020 8:32 EDT) Salmonella PCR Negative Negative 06/30/2020 10:41 EDT [facility] Shigella/Enteroin vasive E. coli Negative Negative 06/30/2020 10:41 EDT [facility] HN LAB CAMPYLOBACTER PCR Negative Negative 06/30/2020 10:41 EDT [facility] Shiga Toxin PCR Negative Negative 0 10:41 EDT [facility] Feces SPECIMEN FROM RECTUM / Unknown Stool Collect / Unknown 06/29/2020 8:32 EDT 06/29/2020 21:50 EDT Provider Outr Resulting Lab MICROBIOLOGY - GENERAL ORDERABLES [facility] [address] [place] [address] documented in this encounter Visit Diagnoses Not on filedocumented in this encounter Care Teams Supervisor Briar Shop Relationship Specialty Start Date End Date Tania Lee NP [address] [place] [address] [place] [phone] PCP - General 02/17/15 08/23/20 Malgorzata Orellana NP [address] [place], [place] [address] PCP - General 08/24/20 07/06/22 Odalys Escobar FNP [address] [place] [address] [place] [address] PCP - General 07/07/22 documented as of this encounter
--- OUTSIDE RECORDS SUMMARY | 2024-07-30 16:35 | XMS_ITS | Encounter Summary ---
Author Organization [facility] Address [address] [place] [address] Care Team Providers Care Coal Cutting Machine Operator Name Role Phone Malgorzata Orellana METAL MOLD DRESSER Primary Care Provider [phone] Odalys Escobar Primary Care Provider [phone] Encounter Details Date Type Department Care Team (Late st Contact Info) Description 02/26/2021 Lab Requisition [facility] Pathology & Laboratory Medicine - [facility] [address] [place] [address] Katie Hubbard MD [facility] [place] [id number] Encounter for other general examination Social History [...] Date/Time Associated Diagnosis Comments SURGICAL PATHOLOGY Today 02/26/2021 9: 40 EDT Encounter for other general examination documented in this encounter Results * SURGICAL PATHOLOGY (02/26/2021 9:40 EDT) Final Diagnosis A. ENDOMETRIUM, BIOPSY: - Disordered proliferative endometrium with early secretory change. See Comment. 03/02/2021 10:26 [facility] Diagnosis Comment The differential diagnosis includes anovulatory cycles in the perimenopausal setting, and sporadic ovulation on a background of disordered proliferative endometrium. 03/02/2021 10:26 [facility] Attestation There was significant resident/fellow involvement in the diagnostic evaluation of this case. By the signature below, the attending physician certifies that they have personally conducted a gross and/or microscopic examination of the described specimens and rendered or confirmed the above diagnosis. 03/02/2021 10:26 [facility] at 1026 Clinical History Abnormal uterine bleeding; pelvic pain 03/02/2021 10:26 [facility] Gross Description A. Received in formalin labelled with proper patient identification (initials A, N) and endometrium is an aggregate of prieto-brown soft tissue admixed with prieto clear mucus and a scant amount of dark brown blood clot (1.8 x 1.6 x 0.8 cm). Entirely submitted in A1-A3. Vijay Mehta 02/27/2021 10:50 03/02/2021 10:26 [facility] Resident/Rfed w: Jess Steve MD 03/02/2021 10:26 [facility] Performing Lab [facility] 03/02/2021 10:26 [facility] Scanned Images 03/02/2021 10:26 [facility] Tissue ENTIRE ENDOMETRIUM / Unknown 02/26/2021 9:40 EDT 02/26/2021 16:19 EDT Katie Hubbard MD PATHOLOGY ORDERABLES [facility] [address] [place] [address] documented in this encounter Visit Diagnoses Diagnosis Encounter for other general examination documented in this encounter Care Teams Coal Cutting Machine Operator Relationship Specialty Start Date End Date Malgorzata Orellana NP [address] [place] [address] PCP - General 08/24/20 07/06/22 Odalys Escobar FNP [facility] [place] [address] PCP - General 07/07/22 documented as of this encounter
--- OUTSIDE RECORDS SUMMARY | 2024-07-30 16:35 | XMS_ITS | Encounter Summary ---
Author Organization [facility] Address [address] [place] [address] Care Team Providers Care Rn Psych Name Role Phone Malgorzata Orellana FUR DRY CLEANER HAND Primary Care Provider [phone] Odalys Escobar Primary Care Provider [phone] Encounter Details Date Type Department Care Team (Late st Contact Info) Description 03/11/2022 Lab Requisition [facility] Pathology & Laboratory Medicine - [facility] [address] [place] [address] Outr Resulting Lab, Provider Social History Tobacco [...] Comments ZZCOVID-19 TEST [facility] PCR Today 03/11/2022 11:15 EDT COVID-19 TESTING Routine 03/11/2022 11:1 5 EDT documented in this encounter Results * COVID-19 TEST [facility] PCR (03/11/2022 11:15 EDT) Swab 03/11/2022 11:1 5 EDT 03/11/2022 21:36 EDT Provider Outr Resulting Lab MICROBIOLOGY - GENERAL ORDERABLES [facility] [address] [place] [address] * COVID-19 TESTING (03/11/2022 11:15 EDT) COVID-19 rt-PCR Result Negative Negative 03/12/2022 13:44 EDT [facility] Comment: This test has [...] performed using the lew SARS-CoV-2 assay ([employer] on the Lew 6800 System Performing Lab Lew [address] [facility] 03/12/2022 13:44 EDT [facility] Swab 03/11/2022 11:1 5 EDT 03/11/2022 21:36 EDT Provider Outr Resulting Lab MICROBIOLOGY - GENERAL ORDERABLES [facility] [address] [place] [address] documented in this encounter Visit Diagnoses Not on filedocumented in this encounter Care Teams Rn Psych Relationship Specialty Start Date End Date Malgorzata Orellana NP [address] [place] [address] PCP - General 08/24/20 07/06/22 Odalys Escobar FNP [facility] [place] [address] PCP - General 07/07/22 documented as of this encounter
--- OUTSIDE RECORDS SUMMARY | 2024-07-30 16:35 | XMS_ITS | Encounter Summary ---
Author Organization [facility] Address [address] [place] [address] Care Team Providers Care Director Industrial Name Role Phone Tania Lee HEALTH AND FITNESS PROFESSOR Primary Care Provider Malgorzata Orellana HEALTH AND FITNESS PROFESSOR Primary Care Provider Odalys Escobar SHOE REPAIRER APPRENTICE Primary Care Provider Encounter Details Date Type Department Care Team (Late st Contact Info) Description 06/05/2020 Lab Requisition [facility] Pathology & Laboratory Medicine - [address] [phone] Outr Resulting Lab, Provider Social History Tobacco [...] Date/Time Associated Diagnosis Comments T3, TOTAL Routine 06/05/2020 13:18 EDT documented in this encounter Results * T3, TOTAL (06/05/2020 13:18 EDT) T3, Total 132 97 - 169 ng/dL 06/05/2020 21:30 EDT [facility] Blood VENOUS BLOOD / Unknown 06/05/2020 13:18 EDT 06/05/2020 20:26 EDT Provider Outr Resulting Lab CHEMISTRY & BLOOD GAS ORDERABLES [facility] [address] [place] [address] documented in this encounter Visit Diagnoses Not on filedocumented in this encounter Care Teams Director Industrial Relationship Specialty Start Date End Date Tania Lee NP [address] [place] [address] [place] [phone] PCP - General 02/17/15 08/23/20 Malgorzata Orellana NP [address] [place] [address] PCP - General 08/24/20 07/06/22 Odalys Escobar FNP [address] [place], [place] [address] [address] PCP - General 07/07/22 documented as of this encounter
--- NOTE | 2024-07-30 16:45 | DI.RAD_ITS ---
Exam(s) XR ELBOW LT COMPLETE EXAM: XR ELBOW LT COMPLETE CLINICAL HISTORY: Fall. TECHNIQUE: 2D digital imaging was performed. Three views. COMPARISON: No exams were available for comparison FINDINGS: BONES: No acute fracture is present. No bony destructive lesion is seen. JOINTS: The elbow is normally aligned. Question of small joint effusion is seen. SOFT TISSUE: Normal. IMPRESSION: No evidence of fracture. Question of small joint effusion. DATA REPOSITORY: RADIATION DOSE DELIVERED:
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
== END 2024-07-30 18:12 | disposition home or self-care (01) ==
LOC: ER 17:52 → RED 18:12
PROVIDERS: Emergency Provider Registered Nurse Emergency; PCP Nurse Practitioner Family
DX: M25.422 Effusion, left elbow (principal); S40.022A Contusion of left upper arm, initial encounter; Z79.82 Long term (current) use of aspirin; Z79.84 Long term (current) use of oral hypoglycemic drugs; Z87.891 Personal history of nicotine dependence; W18.2XXA Fall in (into) shower or empty bathtub, initial encounter; Y93.51 Activity, roller skating (inline) and skateboarding; Y92.012 Bathroom of single-family (private) house as the place of occurrence of the external cause
CPT/HCPCS: 99283; 73080

== ENCOUNTER 2024-12-25 01:37 | Outpatient (CLI) | payer MEDICARE, SELFPAY ==
--- NOTE | 2024-12-25 07:30 | DI.RAD_ITS ---
Exam(s) XR LUMBAR SPINE COMPLETE EXAM: XR LUMBAR SPINE COMPLETE CLINICAL HISTORY: right sided back pain,m54.9,dorsalgia. TECHNIQUE: 2D digital imaging was performed. Five views. COMPARISON: CR XR lumbar spine complete from 02/14/2019 FINDINGS: BONES: No fracture or destructive lesion. Vertebral body heights are maintained. Mild facet hypert rophy identified at L4-5 and L5-S1. DISKS: Intervertebral disc spaces are maintained. ALIGNMENT: Lumbar spinal alignment is within normal limits. SOFT TISSUE: Surgical clips noted right upper quadrant and pelvis. Mild calcification in the aorta. IMPRESSION: Mild degenerative changes of the facet joints of the lower lumbar spine DATA REPOSITORY: RADIATION DOSE DELIVERED:
== END 2024-12-25 01:57 ==
LOC: DI 01:38
PROVIDERS: PCP Nurse Practitioner Family; Visit Provider Nurse Practitioner Family
DX: M51.360 Other intervertebral disc degeneration, lumbar region with discogenic back pain only (principal)
CPT/HCPCS: 72110

== ENCOUNTER 2025-01-30 00:57 | Outpatient (CLI) | payer MEDICARE, SELFPAY ==
--- NOTE | 2025-01-30 | DI.MRI_ITS ---
Exam(s) MR LUMBAR SPINE WO EXAM: MR LUMBAR SPINE WO CLINICAL HISTORY: lumbar radiculopathy,? herniated disc,m54.16. TECHNIQUE: Multiplanar multisequence MRI of the Lumbar spine was performed. COMPARISON: CR XR LUMBAR SPINE COMPLETE from 12/25/2024 FINDINGS: Bones: The last intervertebral disc space is designated the L5/S1 level for the numbering purpose of this ex amination. The vertebral body heights are well maintained. Alignment: Unremarkable. The marrow signal characteristics are unremarkable. Meningioma in the right side of the L 4 vertebral body. Cord: The conus tip ends at the L1 level. It is of normal size and signal intensity. T12-L1: No focal disc herniation is present. No central spinal canal stenosis.No neural foraminal st enosis. L1-2: No focal disc herniation is present. No central spinal canal stenosis.No neural foraminal sten osis. L2-3: No focal disc herniation is present. No central spinal canal stenosis.No neural foraminal kyler nosis. L3-4: No focal disc herniation is present. No central spinal canal stenosis.No neural foraminal kyler nosis. L4-5: No focal disc herniation is present. No central spinal canal stenosis.No neural foraminal sten osis. L5-S1: Mild loss of disc height. Minimal endplate osteophytes. Large right paracentral disc herniat ion with thick true quiñones of disc material superior to the L5 vertebral body. There is impression on the right side of the thecal sac as well as impingement on the nerve roots. The herniated disc mater ial measures 17 millimeters transverse by 7 millimeters AP by 12 millimeters cephalo caudad. No cent ral spinal canal stenosis.No neural foraminal stenosis. The visualized SI joints and sacrum are unremarkable. Soft tissues: The paraspinal soft tissues are unremarkable. IMPRESSION: Large right paracentral disc herniation with superior extrusion of disc material at L5-S1. DATA REPOSITORY:
== END 2025-01-30 01:17 ==
LOC: DI 00:58
PROVIDERS: PCP Nurse Practitioner Family; Visit Provider Nurse Practitioner Family
DX: M51.27 Other intervertebral disc displacement, lumbosacral region (principal)
CPT/HCPCS: 72148

== ENCOUNTER 2025-02-17 12:57 | Outpatient (CLI) | payer MEDICARE, SELFPAY ==
--- NOTE | 2025-02-17 12:45 | RT.EKG_ITS ---
APPROVED REPORT Exam: Resting ECG Reason for Exam: pre op Patient Location: O HR:76 bpm ECG Measurements Heart Rate 76 AXIS NM 167 P 57 QRSd 87 QRS 48 QT 367 T 54 QTc 413 Conclusion Sinus rhythm...normal P axis, V-rate 50- 99 Baseline wander in lead(s) V3 Missing lead V3 otherwise normal
== END 2025-02-17 12:58 | disposition home or self-care (01) ==
PROVIDERS: PCP Nurse Practitioner Family; Visit Provider Nurse Practitioner Family
DX: R06.02 Shortness of breath (principal); Z01.810 Encounter for preprocedural cardiovascular examination; R94.31 Abnormal electrocardiogram [ECG] [EKG]
CPT/HCPCS: 93010

== ENCOUNTER 2025-02-19 02:05 | Outpatient (CLI) | payer MEDICARE, SELFPAY ==
[2025-02-19 14:31] LABS: Abs Immature Grans 0.03 10^3/uL (0.0-0.06); Absolute Basophil Count 0.05 10^3/uL (0.0-0.2); Absolute Eosinophil Count 0.31 10^3/uL (0.0-0.7); Absolute Lymphocyte Count 2.87 10^3/uL (1.2-3.4); Absolute Monocyte Count 0.87 10^3/uL (0.1-0.8); Basophils % 0.4 %; Eosinophils % 2.7 %; HGB 14.6 g/dL (11.2-15.7); Immature Grans % 0.3 %; Lymphocytes % 25.3 %; MCH 31.1 pg (27.0-33.0); MCHC 32.4 % (32.0-36.0); MCV 96 fL (80-95); MPV 9.1 fL (8.0-11.0); Monocytes % 7.7 %; Neutrophils % 63.6 %; Platelet Count 301 10^3/uL (130-400); RBC 4.69 10^6/uL (3.93-5.22); RDW 13.6 % (11.7-14.6); RDW-SD 48.3 fL; WBC 11.36 10^3/uL (4.4-10.8)
[2025-02-19 14:35] LABS: Absolute Neutrophil Count 7.22 10^3/uL (1.2-6.7)
[2025-02-19 15:36] LABS: ALT 21 U/L (14-59); AST 11 U/L (15-37); Albumin 3.5 g/dL (3.4-5.0); Alkaline Phosphatase 93 U/L (46-116); Anion Gap 10.6 mmol/L (3-11); BUN 20 mg/dL (7-18); Bilirubin, Total 0.2 mg/dL (0.2-1.0); CO2 26.4 mmol/L (21.0-32.0); CREATININE 1.2 mg/dL (0.55-1.02); Calcium 9.6 mg/dL (8.5-10.1); Chloride 106 mmol/L (98-107); Estimated GFR 55.84 (mL/min/1.73m2); Glucose 115 mg/dL (74-106); Potassium 4.1 mmol/L (3.5-5.1); Sodium 143 mmol/L (136-145); Total Protein 7.5 g/dL (6.4-8.2)
== END 2025-02-19 02:06 | disposition home or self-care (01) ==
PROVIDERS: PCP Nurse Practitioner Family; Visit Provider Nurse Practitioner Family
DX: Z01.818 Encounter for other preprocedural examination (principal)
CPT/HCPCS: 36415; 80053; 85025

== ENCOUNTER 2025-07-04 00:27 | Outpatient (CLI) | payer MEDICARE, SELFPAY ==
[2025-07-04 16:27] LABS: Anion Gap 7.8 mmol/L (3-11); BUN 17 mg/dL (7-18); CO2 31.2 mmol/L (21.0-32.0); Calcium 10.0 mg/dL (8.5-10.1); Chloride 103 mmol/L (98-107); Estimated GFR 55.84 (mL/min/1.73m2); Glucose 102 mg/dL (74-106); Potassium 3.7 mmol/L (3.5-5.1); Sodium 142 mmol/L (136-145)
== END 2025-07-04 00:28 | disposition home or self-care (01) ==
LOC: LBO 00:27
PROVIDERS: PCP Nurse Practitioner Family; Visit Provider Nurse Practitioner Family
DX: R79.89 Other specified abnormal findings of blood chemistry (principal)
CPT/HCPCS: 36415; 80048

== ENCOUNTER 2025-07-22 10:48 | Outpatient (CLI) | payer MEDICARE, SELFPAY ==
--- NOTE | 2025-07-22 06:30 | DI.US_ITS ---
Exam(s) US RENAL EXAM: US RENAL CLINICAL HISTORY: decreasing GFR,r94.4 TECHNIQUE: Ultrasound of both kidneys performed using standard protocol. COMPARISON: US US PELVIS TRANSVAGINAL from 03/28/2024 MR MR LUMBAR SPINE WO from 01/30/2025 FINDINGS: RIGHT KIDNEY: Measures 10 cm in length. No cysts evident. Normal cortical thickness and corticomedullary differentiation .No solid masses There are a few small echogenic foci in the right kidney, the largest in the upper pole calyx measuring 8-9 mm consistent with nonobstructing calculus. A smaller 6 mm calculus is noted in the lower pole calyx as well as another smaller 3 mm calculus in lower pole calyx. There is no hydronephrosis. No perinephric fluid. LEFT KIDNEY: Measures 10.5 cm in length. No cysts evident. Normal cortical thickness and corticomedullary differentiaion. No solids masses. No intrarenal calculi nor hydonephrosis. URINARY BLADDER: Prevoid volume is 137 cc Postvoid volume is 0 cc No evidence of bladder mass nor diverticuli. Ureterovesical jets: Both identified and appear symmetrical IMPRESSION: 1. There are multiple nonobstructive calculi in the right kidney, largest measuring 8-9 mm and located in the upper pole calyx region. There are no obvious calculi in the opposite-left kidney. No hydronephrosis on either side. 2. No significant renal masses. No abnormalities evident in the urinary bladder. DATA REPOSITORY:
== END 2025-07-22 11:08 ==
LOC: DI 10:49
PROVIDERS: PCP Nurse Practitioner Family; Visit Provider Nurse Practitioner Family
DX: R94.4 Abnormal results of kidney function studies (principal)
CPT/HCPCS: 76770

== ENCOUNTER 2025-07-30 02:11 | Outpatient (CLI) | payer MEDICARE, SELFPAY ==
--- NOTE | 2025-07-30 16:00 | DI.MAMMO_ITS ---
Exam(s) MAMMO SCREENING EXAM: MAMMO SCREENING CLINICAL HISTORY: screening,Z12.39. TECHNIQUE: Bilateral full field digital CC and MLO mammographic images were obtained with 3D tomosynthesis and utilizing computer aided detection (CAD). COMPARISON: Her baseline mammogram of February 2023 FINDINGS: No new right breast findings. The left breast asymmetric tissue medially is unchanged, this located 11 cm in from nipple on the CC view. Few small nodular densities posteriorly benign appearance and are unchanged. More anteriorly there is a 6 by 5 mm well-defined noncalcified nodular density located 5 cm in from the nipple on the CC view, medial of center. This is slightly larger than previous. There are no new spiculated masses nor malignant appearing microcalcification groups. There is no significant architectural distortion nor skin thickening-retraction. IMPRESSION: 1. No radiographic evidence of malignancy in the right breast. 2. Well-defined noncalcified 6 x 5 mm nodule located medially in the left breast, 5 cm in from the nipple. Spot compression view and ultrasound recommended. BI-RADS Category 0 - Incomplete: Need additional imaging evaluation Breast Density - Category B - There are scattered areas of fibroglandular density. Breast density Category C or D implies that the patient has dense breast tissue. Dense breast tissue can make it harder to find cancer on a mammogram. Dense breast tissue is also associated with an increased risk of breast cancer. This information about the result of the mammogram report was provided to the patient to raise their awareness. Use this report when you speak with the patient about their risks for breast cancer, which includes their family history. At that time, you may recommend additional screening tests (Ultrasound or MRI) as these tests may add significant information. A negative radiographic report should not delay biopsy if a dominant or clinically suspicious mass is present. Up to ten percent of cancers are not identified on mammography. A negative report may reinforce clinical impression. Adenosis and dense breasts may obscure an underlying neoplasm. False positive reports average 6 to 10%. Patient will receive a letter notifying them of these results.
== END 2025-07-30 02:31 ==
LOC: DI 02:11
PROVIDERS: PCP Nurse Practitioner Family; Visit Provider Nurse Practitioner Family
DX: Z12.31 Encounter for screening mammogram for malignant neoplasm of breast (principal)
CPT/HCPCS: 77063; 77067

== ENCOUNTER 2025-08-04 07:32 | Outpatient (CLI) | payer MEDICARE, SELFPAY ==
--- NOTE | 2025-08-04 14:56 | DI.MAMMO_ITS ---
Exam(s) MG MAMMO SCREEN CALL BACK UNI US BREAST LT LIMITED EXAM: MG MAMMO SCREEN CALL BACK UNI CLINICAL HISTORY: WELL DEFINED NONCALCIFIED 6X5 MM NODULE MEDIALLY LEFT BREAST 5 CM FROM. TECHNIQUE: Craniocaudal and mediolateral oblique spot compression digital Mammography views of the leftbreast with Tomosynthesis and breast ultrasound. COMPARISON: MG MG MAMMO SCREENING from 07/30/2025 US US BREAST LT LIMITED from 08/04/2025 FINDINGS: Mammography/Tomosynthesis: Masses: Persistent circumscribed nodule noted in the inferior medial breast anterior Architectural Distortion: None seen. Microcalcifictions: No suspicious pleomorphic-type are seen. Skin Thickening/Nipple Retraction: None. Left breast US: Echotexture: Normal appearance of the glandular tissue. Shadowing: No suspicious foci. Cyst: 4 x 3.7 millimeter cyst noted superficially in the 8 o'clock position 2 cm from the nipple. This corresponds to the mammographic abnormality. Other tiny cysts were also present. Solid lesions: None seen. Ductal dilation: None. IMPRESSION: 1. No evidence of malignancy is noted. 2. Unless there is more urgent need, follow-up screening mammography is recommended, as per [place] [employer] guidelines. 3. The findings were discussed with the patient on the date of the examination. BI-RADS Category 2 - Benign Findings Breast Density - Category B - There are scattered areas of fibroglandular density. Breast density Category C or D implies that the patient has dense breast tissue. Dense breast tissue can make it harder to find cancer on a mammogram. Dense breast tissue is also associated with an increased risk of breast cancer. This information about the result of the mammogram report was provided to the patient to raise their awareness. Use this report when you speak with the patient about their risks for breast cancer, which includes their family history. At that time, you may recommend additional screening tests (Ultrasound or MRI) as these tests may add significant information. A negative radiographic report should not delay biopsy if a dominant or clinically suspicious mass is present. Up to ten percent of cancers are not identified on mammography. A negative report may reinforce clinical impression. Adenosis and dense breasts may obscure an underlying neoplasm. False positive reports average 6 to 10%. Patient will receive a letter notifying them of these results.
== END 2025-08-04 07:52 ==
PROVIDERS: PCP Nurse Practitioner Family; Visit Provider Nurse Practitioner Family
DX: Z12.31 Encounter for screening mammogram for malignant neoplasm of breast (principal); N63.21 Unspecified lump in the left breast, upper outer quadrant
CPT/HCPCS: 76642; 77063; 77067

== ENCOUNTER 2025-09-02 14:05 | Outpatient (CLI) | payer MEDICARE, SELFPAY ==
--- NOTE | 2025-09-02 14:30 | DI.RAD_ITS ---
Exam(s) XR LUMBAR SPINE COMPLETE EXAM: XR LUMBAR SPINE COMPLETE CLINICAL HISTORY: eval pathology, LUMBAR PAIN, M54.50. TECHNIQUE: 2D digital imaging was performed of the lumbar spine. Five images were obtained. AP, lateral, right oblique, left oblique and L5-S1 spot views were obtained. COMPARISON: CR XR LUMBAR SPINE COMPLETE from 12/25/2024 FINDINGS: BONES: No fracture or destructive lesion. Vertebral bodies are unremarkable. No facet hypertrophy identified. DISKS: Intervertebral disc spaces are maintained. ALIGNMENT: Lumbar spinal alignment is within normal limits. No spondylolysis or spondylolisthesis. SOFT TISSUE: There are surgical clips in the right upper quadrant of the abdomen and in the pelvis. Atherosclerotic calcification is present. IMPRESSION: Unremarkable radiographs of the lumbar spine. DATA REPOSITORY: RADIATION DOSE DELIVERED:
--- NOTE | 2025-09-02 14:30 | DI.RAD_ITS ---
Exam(s) XR HIP LT COMPLETE AP PELVIS EXAM: XR HIP LT COMPLETE AP PELVIS CLINICAL HISTORY: eval pathology, L HIP PAIN, M25.552. TECHNIQUE: 2D digital imaging was performed of the left hip. Two views were obtained. AP pelvis and lateral left hip views were obtained. COMPARISON: No exams were available for comparison FINDINGS: BONES: No acute fracture is present. No bony destructive lesion is seen. JOINTS: No dislocation present. The hips are well maintained. The sacroiliac joints and symphysis pubis are unremarkable. SOFT TISSUE: There are surgical clips in the pelvis. IMPRESSION: Unremarkable radiographs of the left hip. DATA REPOSITORY: RADIATION DOSE DELIVERED:
== END 2025-09-02 14:25 ==
PROVIDERS: PCP Nurse Practitioner Family; Visit Provider Nurse Practitioner Family
DX: M54.50 Low back pain, unspecified (principal); M25.552 Pain in left hip
CPT/HCPCS: 72110; 73502